=== PATIENT | male | born 2000 | race Caucasian/White ===

== ENCOUNTER → 2022-04-19 10:15 | Outpatient (CLI) | payer SELFPAY ==
[2022-04-19 19:44] LABS: Alanine Aminotransferase 31 U/L (12-78); Albumin Level 4.5 g/dl (3.5-5.0); Alkaline Phosphatase 176 U/L (38-126); Aspartate Amino Transferase 30 U/L (17-59); Bilirubin,Total 0.5 mg/dl (0.2-1.3); Blood Urea Nitrogen 11 mg/dl (9-20); Calcium 9.1 mg/dl (8.4-10.2); Carbon Dioxide 27 mmol/L (22.0-30.0); Chloride 86 mmol/L (98-107); Estimated Glomerular Filt Rate 168 ml/min (>60); GFR (African American) 204 ML/MIN (>60); Globulin 2.3 g/dL (1.3-3.2); Sodium 128 mmol/L (136-145); Total Protein,Serum 6.8 g/dl (6.3-8.2)
[2022-04-19 20:00] LABS: Free T4 (Free Thyroxine) 1.64 ng/dl (0.78-2.19); Glucose 817 mg/dl (74-100)
[2022-04-19 20:13] LABS: Thyroid Stimulating Hormone 1.01 uIU/mL (0.465-4.68)
[2022-04-19 21:04] LABS: Creatinine,Urine Random 11 mg/dL (Not Estab.); Microalbumin < 6.000 mg/L (0-16.7)
== END ==
PROVIDERS: PCP Family Medicine; Visit Provider Family Medicine
DX: E05.90 Thyrotoxicosis, unspecified without thyrotoxic crisis or storm (principal); E10.9 Type 1 diabetes mellitus without complications; Z79.4 Long term (current) use of insulin
CPT/HCPCS: 80053; 82043; 82570; 84439; 84443

== ENCOUNTER → 2022-05-03 10:58 | Outpatient (CLI) | payer SELFPAY ==
[2022-05-03 20:34] LABS: Anion Gap 16.2 mEq/L (5-15); Blood Urea Nitrogen 14 mg/dl (9-20); Calcium 9.1 mg/dl (8.4-10.2); Carbon Dioxide 30 mmol/L (22.0-30.0); Chloride 98 mmol/L (98-107); Chol/HDL Ratio 2.5 (1-3.5); Cholesterol 175 mg/dl (140-200); Estimated Glomerular Filt Rate 168 ml/min (>60); GFR (African American) 204 ML/MIN (>60); Glucose 160 mg/dl (74-100); HDL Cholesterol 70 mg/dl (40-60); Potassium 4.2 mmoL/L (3.5-5.1); Sodium 140 mmol/L (136-145); Triglycerides 234 mg/dl (30-150); VLDL Cholesterol 47 mg/dL (0-40)
[2022-05-03 20:44] LABS: Direct LDL Cholesterol 80.11 mg/dL (100-129)
[2022-05-03 20:52] LABS: Microalbumin/Creatinine Ratio 11.8
[2022-05-03 20:53] LABS: Creatinine,Urine Random 166 mg/dL (Not Estab.)
== END ==
LOC: LAB.DROPOF 05-04 06:42
PROVIDERS: PCP Family Medicine; Visit Provider Family Medicine
DX: E10.9 Type 1 diabetes mellitus without complications (principal); Z79.4 Long term (current) use of insulin
CPT/HCPCS: 80048; 80061; 82043; 82570

== ENCOUNTER → 2023-05-31 23:48 | Outpatient (CLI) | payer SELFPAY ==
[2023-05-31 20:08] LABS: Hemoglobin A1C 12.5 % (4.0-6.0)
== END ==
LOC: LAB.DROPOF 23:49
PROVIDERS: PCP Nurse Practitioner; Visit Provider Nurse Practitioner
DX: E05.90 Thyrotoxicosis, unspecified without thyrotoxic crisis or storm (principal); E10.9 Type 1 diabetes mellitus without complications; Z79.4 Long term (current) use of insulin
CPT/HCPCS: 83036

== ENCOUNTER 2023-06-21 16:51 | Emergency (ER) | payer SELFPAY ==
[2023-06-21 16:51] VITALS: BP 118/72; PULSE 60; RESP 18; TEMP 36.6; O2SAT 100; BMI 17.2
[2023-06-21 16:59] LABS: POC Glucose,Bedside 283 (70-110)
--- NOTE | 2023-06-21 17:12 | XR_ITS ---
PROCEDURE INFORMATION: Exam: XR Chest Exam date and time: 06/21/2023 5:13 PM Age: 22 years old Clinical indication: Other: Vomiting TECHNIQUE: Imaging protocol: Radiologic exam of the chest. Views: 1 view. COMPARISON: No relevant prior studies available. FINDINGS: Lungs: Unremarkable. No consolidation. Pleural spaces: Unremarkable. No pleural effusion. No pneumothorax. Heart/Mediastinum: Unremarkable. No cardiomegaly. Bones/joints: Unremarkable. IMPRESSION: No acute findings.
--- NOTE | 2023-06-21 17:19 | PC.NURSE ---
DR KIRKPATRICK AT BEDSIDE
[2023-06-21 17:20] LABS: Basophils % 0.2 % (0.1-2.0); Eosinophils % 0.1 % (0.1-12.0); Hematocrit 41.8 % (42.0-52.0); Hemoglobin 14.6 g/dL (14.1-18.0); Lymphocytes # 2.3 K/mm3 (0.7-4.5); Lymphocytes % 21.8 % (10-50); Mean Corpuscular HGB Conc 35.1 g/dL (31.8-35.4); Mean Corpuscular Hemoglobin 31.1 pg (27.0-31.2); Mean Corpuscular Volume 88.7 fl (80-94); Mean Platelet Volume 7.4 fl (7.4-10.4); Monocytes # 0.6 K/mm3 (0.1-1.0); Monocytes % 5.7 % (1.7-9.3); Neutrophils # 7.6 K/mm3 (1.8-7.8); Platelet Count 289 K/mm3 (142-424); Red Blood Count 4.71 M/mm3 (4.60-6.20); Red Cell Distribution Width 12.9 % (11.5-17.5); White Blood Count 10.5 K/mm3 (4.8-10.8)
[2023-06-21 17:21] LABS: VBG Base Excess 1.7 mmol/L (-2.4-2.3); VBG HCO3 25.9 mmol/L (23-30); VBG Oxygen Saturation 69.9 % (50-70); VBG PCO2 39.9 mmol/L (35-51); VBG PH 7.43 mmol/L (7.31-7.41); VBG PO2 33.9 mmol/L (28-40); VBG Total CO2 27.2 mmol/L (23-27)
[2023-06-21 17:23] LABS: Chloride 98 mmol/L (98-107); Potassium 3.3 mmoL/L (3.5-5.1); Sodium 136 mmol/L (136-145)
--- NOTE | 2023-06-21 17:24 | HMH.EDGENADL ---
Discharge Plan Disposition Patient Disposition: Home, Self-Care Prescriptions Prescriptions: New metoclopramide HCl [Reglan] 10 mg tablet 10 mg PO Q6H PRN (Reason: nausea and vomiting) 7 Days Qty: 30 0RF No Action omeprazole 40 mg capsule,delayed release(DR/EC) 40 mg PO DAILY Qty: 30 2RF Toujeo Max U-300 SoloStar 300 unit/mL (3 mL) insulin pen 30 unit SQ DAILY Qty: 3 5RF (DME) pen needle, diabetic [BD Ultra-Fine Micro Pen Needle] 32 gauge x 1/4 needle See Rx Instructions .Route Qty: 100 3RF Rx Instructions: As directed Humalog KwikPen Insulin 200 unit/mL (3 mL) insulin pen 20 unit SQ TID Qty: 12 3RF Referrals Follow up/Referrals: Gretchen Angelo APRN [Primary Care Provider] - See instructions Activity Restrictions/Add. Instructions Additional Instructions/Restrictions: Per our discussion there are 2 conditions that I am primarily worried about the first being diabetic gastroparesis. I recommend that you follow-up with a GI doctor as well as establish care with an edge stainer at [facility] and I would recommend that you get a gastric emptying study. Secondarily I am concerned that you may have cannabinoid hyperemesis from your chronic marijuana smoking. Please stop smoking marijuana as an elimination challenge to see if this improves your symptoms. Return to an emergency department with intractable symptoms or other concerns. The medicine Reglan has been prescribed to you to take which may help improve your gastric emptying but is not a medication is discussed that I would want you to take long-term due to significant side effects with long-term use. Clinical Impressions Clinical Impression: Diabetes mellitus type 1, Cyclical vomiting Instructions Patient Instructions: DI for Diarrhea and Traveler's Diarrhea -- Adult, DI for Diarrhea and Traveler's Diarrhea -- Child, DI for Nausea -- Adult, DI for Nausea -- Child Discharge ED Provider: Jaxson Reynaga General Adult HPI General Chief complaint: Nausea/Vomiting/Diarrhea Stated complaint: chest pressure, vomiting, SOA Time Seen by Provider: 06/21/23 17:18 Mode of Arrival: Wheelchair Source of Information: Patient Limitations: No Limitations Description of Symptoms (Recalled from ER Triage Doc. by RN): PT TYPE 1 DIABETIC, BLOOD GLUCOSE UP AND DOWN. REPORTS FREQUENT N/V. REPORTS STOMACH AND ESOPHAGUS BURNING, REPORTS ABDOMINAL PAIN. HAS BEEN EVALUATED AT OTHER HOSPITALS LATELY, STATES THEY DON'T KNOW WHATS WRONG WITH ME. History of Present Illness HPI narrative: Patient is a 22-year-old male history of type 1 diabetes most recent A1c was between 11 and 12 presents today with frequent recurrent nausea and vomiting. States this has been ongoing for several days at this point. Denies any fevers or chills or any other respiratory or viral symptoms. Went to [facility] in [place] yesterday evening had a CT scan of his abdomen which did not show any abnormalities and was told that he was not in DKA. Additionally patient states that he smokes marijuana daily for an extended period of time is never been diagnosed with cannabinol hyperemesis and has not tried a hot shower to relieve his symptoms. No diarrhea. Is passing gas. Related Data Previous Rx's Medication Instructions Recorded insulin glargine U-300 conc 300 30 unit (0.1 mL) SQ DAILY #3 mL 05/31/23 unit/mL (3 mL) subcutaneous pen (Toujeo Max U-300 SoloStar) omeprazole 40 mg capsule,delayed 40 mg PO DAILY #30 caps 05/31/23 release pen needle, diabetic 32 gauge x #100 ea 05/31/2307/19 (BD Ultra-Fine Micro Pen Needle) insulin lispro 200 unit/mL (3 mL) 20 unit (0.1 mL) SQ TID #12 mL 06/13/23 subcutaneous pen (Humalog KwikPen U-200 Insulin) metoclopramide HCl 10 mg tablet 10 mg PO Q6H PRN nausea and 06/21/23 (Reglan) vomiting 7 days #30 tabs Allergies Allergy/AdvReac Type Severity Reaction Status Date / Time No Known Allergies Allergy Verified 06/13
[2023-06-21 17:25] LABS: Blood Urea Nitrogen 19 mg/dl (9-20)
[2023-06-21 17:26] LABS: Alanine Aminotransferase 35 U/L (12-78); Albumin Level 4.6 g/dl (3.5-5.0); Albumin/Globulin Ratio 1.8 (1.1-1.8); Alkaline Phosphatase 77 U/L (38-126); Anion Gap 11.3 mEq/L (5-15); Aspartate Amino Transferase 43 U/L (17-59); Bilirubin,Total 0.7 mg/dl (0.2-1.3); Calcium 9.1 mg/dl (8.4-10.2); Carbon Dioxide 30 mmol/L (22.0-30.0); Creatinine Clearance Estimated 116 mL/min (50-200); Estimated Glomerular Filt Rate 140 ml/min (>60); GFR (African American) 169 ML/MIN (>60); Globulin 2.5 g/dL (1.3-3.2); Glucose 292 mg/dl (74-100); Total Protein,Serum 7.1 g/dl (6.3-8.2)
[2023-06-21 17:38] LABS: Lipase 41 U/L (23-300)
[2023-06-21 17:46] LABS: Acetone, Serum (Rapid) None Detected (None Detect)
--- NOTE | 2023-06-21 17:56 | PC.NURSE ---
ROUNDED ON PT, URINAL AND PILLOW PROVIDED. CALL LIGHT WITHIN REACH. FEELING BETTER AT THIS TIME. FAMILY AT BEDSIDE
--- NOTE | 2023-06-21 18:12 | PC.NURSE ---
DR KIRKPATRICK AT BEDSIDE TO UPDATE PT AND FAMILY
[2023-06-21 18:18] VITALS: BP 148/70; PULSE 80; RESP 18; TEMP 36.7; O2SAT 97
--- NOTE | 2023-06-21 18:25 | PC.NURSE ---
pt has been d/c, however pt & his mother are at waiting for pt's grandmother to collect them.
== END 2023-06-21 18:34 | disposition home or self-care (01) ==
PROVIDERS: Emergency Provider Student in an Organized Health Care Education/Training Program; PCP Nurse Practitioner
DX: R11.2 Nausea with vomiting, unspecified (principal); E10.9 Type 1 diabetes mellitus without complications; E05.90 Thyrotoxicosis, unspecified without thyrotoxic crisis or storm; F17.200 Nicotine dependence, unspecified, uncomplicated; F12.90 Cannabis use, unspecified, uncomplicated
CPT/HCPCS: 71045; 80053; 82009; 82803; 82962; 83690; 85025; 96361; 96374; 96375; 99285; J2405

== ENCOUNTER 2023-12-30 19:05 | Observation (INO) | payer SELFPAY ==
[2023-12-30] VITALS (11 sets, daily range): BP systolic 97–129; BP diastolic 59–89; PULSE 41–80; RESP 14–22; TEMP 36.7–36.8; O2SAT 94–99; BMI 18.0; BMI 17.5
--- NOTE | 2023-12-30 19:18 | HMH.EDGENADL ---
Discharge Plan Disposition Patient Disposition: Admitted Prescriptions Prescriptions: No Action omeprazole 40 mg capsule,delayed release(DR/EC) 40 mg PO DAILY Qty: 30 2RF Toujeo Max U-300 SoloStar 300 unit/mL (3 mL) insulin pen 30 unit SQ DAILY Qty: 3 5RF Humalog KwikPen Insulin 200 unit/mL (3 mL) insulin pen 20 unit SQ TID Qty: 12 3RF (DME) pen needle, diabetic [BD Ultra-Fine Micro Pen Needle] 32 gauge x 1/4 needle See Rx Instructions .Route Qty: 100 3RF Rx Instructions: As directed metoclopramide HCl [Reglan] 10 mg tablet 10 mg PO Q6H PRN (Reason: nausea and vomiting) 7 Days Qty: 30 0RF Referrals Follow up/Referrals: Gretchen Angelo APRN [Primary Care Provider] - See instructions Clinical Impressions Clinical Impression: Diabetic gastroparesis, Abdominal pain, Intractable nausea and vomiting, Dehydration, moderate, Colitis Instructions Patient Instructions: DI for Gastrointestinal Bleeding Discharge ED Provider: Jaxson Reynaga General Adult HPI General Chief complaint: GI Bleed Stated complaint: blood sugar over 400 Time Seen by Provider: 12/30/23 19:13 Mode of Arrival: Ambulatory Source of Information: Patient Limitations: No Limitations Description of Symptoms (Recalled from ER Triage Doc. by RN): Patient is a type 1 diabetic that presents with intense vomiting and stomach pain that started a couple of hours ago. Vomiting is coffee ground in nature. History of Present Illness HPI narrative: Patient is a 23-year-old male known insulin-dependent diabetic presents today with nausea and vomiting abdominal discomfort very similar to DKA episode he had in the past. Denies any melena or hematochezia but has had some dark emesis. States his blood sugar on his continuous monitor has been reading higher lately. Last A1c was greater than 10 he states. Has not had any fevers or chills or any other preceding symptoms other than this. Related Data Previous Rx's Medication Instructions Recorded insulin glargine U-300 conc 300 30 unit (0.1 mL) SQ DAILY #3 mL 05/31/23 unit/mL (3 mL) subcutaneous pen (Toujeo Max U-300 SoloStar) omeprazole 40 mg capsule,delayed 40 mg PO DAILY #30 caps 05/31/23 release insulin lispro 200 unit/mL (3 mL) 20 unit (0.1 mL) SQ TID #12 mL 06/13/23 subcutaneous pen (Humalog KwikPen U-200 Insulin) metoclopramide HCl 10 mg tablet 10 mg PO Q6H PRN nausea and 06/21/23 (Reglan) vomiting 7 days #30 tabs pen needle, diabetic 32 gauge x #100 ea 09/18/2307/19 (BD Ultra-Fine Micro Pen Needle) Allergies Allergy/AdvReac Type Severity Reaction Status Date / Time No Known Allergies Allergy Verified 06/13/23 08:09 [facility] Disclaimer: The information contained in this section may have been updated after the patient was seen, as this information can be updated by other users. Medical History Diabetes mellitus type 1 Hyperthyroidism Family History Other Cancer Diabetes Hypertension Social History Smoking Status: Current every day smoker alcohol intake: current current occupational status: unemployed Travel in the last 8 weeks: None ROS Obtained: Yes All systems reviewed & no additional complaints except as documented Physical Exam General General appearance: in distress and cachectic Respiratory Respiratory exam: Present normal lung sounds bilaterally Cardiovascular Cardiovascular exam: Present tachycardia Abdominal Exam Abdominal exam: Present soft and tenderness Neurological Exam Neurological exam: Present alert and oriented X3 Medical Decision Making Lui Inquiry Pt receiving controlled substance: No Vital Signs: 12/30/23 19:06 12/30/23 19:12 12/30/23 20:00 Pulse Rate 80 60 Pulse Rate [Radial] 59 L Respiratory Rate 22 20 18 Blood Pressure 129/89 Blood Pressure [Right Arm] 129/89 Blood Pressure Mean [Right Arm] 102 Blood Pressure Source [Right Arm] Automatic Cuff Blood Pressure Position [Right Arm] Sitting 02 Sat by Pulse Oximetry 99 99 98 Oxygen Delivery Method Room Air Room Air Room Air 12/30/23 20:30 12/30/23 21:00 12/30/23 21:30 Pulse Rate 58 L 43 L 43 L Pulse Rate [Radial] Respiratory Rate 20 16 14 Blood Pressure 103/67 L 97/59 L Blood Pressure [Right Arm] Blood Pressure Mean [Right Arm] Blood Pressure Source [Right Arm] Blood Pressure Position [Right Arm] 02 Sat by Pulse Oximetry 96 97 95 Oxygen Delivery Method Room Air Room Air Room Air Lab Data Lab results reviewed: Yes I reviewed the patient's lab results. Lab Results 12/30/23 19:14: WBC 15.3 H, RBC 5.59, Hgb 16.8, Hct 49.7, MCV 88.9, MCH 30.0, MCHC 33.7, RDW 13.3, Plt Count 355, MPV 7.2 L, Neut % (Auto) 79.3, Lymph % (Auto) 14.9, [place] % (Auto) 4.8, Eos % (Auto) 0.3, Baso % (Auto) 0.6, Neut # (Auto) 12.2 H, Lymph # (Auto) 2.3, [place] # (Auto) 0.7, Eos # (Auto) 0.1, Baso # (Auto) 0.1, Total Counted 100, Neutrophils % (Manual) 73, Band Neutrophils % 1.0, Lymphocytes % (Manual) 19, Atypical Lymphs % 2.0, Monocytes % (Manual) 4, Eosinophils % (Manual) 1, Platelet Estimate Normal, RBC Morphology Normal, Sodium 143, Potassium 3.7, Chloride 103, Carbon Dioxide 21 L, Anion Gap 22.7 H, BUN 18, Creatinine 0.90, Estimated Creat Clear 93, Estimated GFR 104, Est GFR ( Amer) 125, Glucose 382 H, Calcium 10.8 H, Phosphorus 3.2, Magnesium 1.7, Total Bilirubin 0.8, AST 51, ALT 39, Alkaline Phosphatase 90, Troponin I < 0.01, Total Protein 8.9 H D, Albumin 5.6 H, Globulin 3.3 H, Albumin/Globulin Ratio 1.7, Lipase 29, Salicylates < 1.0 L, Acetaminophen < 10 L, Plasma/Serum Alcohol < 10 12/30/23 19:17: VBG pH 7.49 H, VBG pCO2 23.7 L, VBG pO2 122.0 H, VBG HCO3 17.6 L, VBG Total CO2 18.3 L, VBG O2 Saturation 99.0 H, VBG Base Excess -5.8 L, VBG Lactic Acid 5.2 H 12/30/23 21:50: Urine Color Yellow, Urine Appearance Clear, Urine pH 8.5, Ur Specific [place] 1.010, Urine Protein Negative, Urine Glucose (UA) 2+, Urine Ketones 1+, Urine Blood Negative, Urine Nitrate Negative, Urine Bilirubin Negative, Urine Urobilinogen 1.0, Ur Leukocyte Esterase Negative, Urine RBC None, Urine WBC Occasional, Ur Squamous Epith Cells Occasional, Urine Bacteria None, Urine Opiates Screen Negative, Urine Methadone Screen Negative, Ur Barbituates Screen Negative, Ur Phencyclidine Scrn Negative, Ur Amphetamines Screen Negative, U Benzodiazepines Scrn Negative, Urine Cocaine Screen Negative, U Marijuana (THC) Screen Positive H 12/30/23 19:14 12/30/23 19:14 Orders (Tests/Meds): ED MEDICATIONS Generic Name Dose Route Start Last Admin Trade Name Freq PRN Reason Stop Dose Admin Sodium Chloride 10 ml 12/30/23 20:04 12/30/23 20:05 Sodium Chloride 0.9% 10ml Syr (Rad Only) IV 01/29/24 20:03 10 ml NEEDED PRN Administration Maintain IV Site Discontinued Medications Generic Name Dose Route Start Last Admin Trade Name Freq PRN Reason Stop Dose Admin Lactated Ringer's 1,000 mls @ 999 mls/hr 12/30/23 19:30 12/30/23 19:32 Lactated Ringer's 1000 Ml Bag IV 12/30/23 21:30 999 mls/hr .Q1H1M MARCELO Administration Iopamidol 75 ml 12/30/23 20:04 12/30/23 20:05 Iopamidol-370 (76%);100ml Bottle IV 12/30/23 20:05 75 ml ONCE ONE Administration Metoclopramide HCl 10 mg 12/30/23 19:46 12/30/23 19:49 Metoclopramide Hcl 10mg/2ml Vial IVP 12/30/23 19:47 10 mg ONCE ONE Administration Morphine Sulfate 4 mg 12/30/23 19:42 12/30/23 20:51 Morphine 4mg/Ml Syringe IV 12/30/23 19:43 Not Given ONCE ONE Ondansetron HCl 4 mg 12/30/23 19:16 12/30/23 19:33 Ondansetron 4mg/2ml Vial IV 12/30/23 19:17 4 mg ONCE ONE Administration ORDERS Category Date Time Status CT abdomen pelvis w con Stat Cat Scan 06/16/24 19:42 Completed Acetaminophen Stat Lab 12/30/23 19:14 Completed CBC w/Auto Diff [Complete Blood Count Auto Diff] Stat Lab 12/30/23 19:14 Completed CMP [Comprehensive Metabolic Panel] Stat Lab 12/30/23 19:14 Completed Diarrhea 23 Panel, PCR Stat Lab 12/30/23 22:30 Ordered Ethanol [Ethyl Alcohol] Stat Lab 12/30/23 19:14 Completed Lipase Stat Lab 12/30/23 19:14 Completed Magnesium Stat Lab 12/30/23 19:14 Completed Phosphorous Stat Lab 12/30/23 19:14 Completed Salicylate Stat Lab 12/30/23 19:14 Completed Trop I [Troponin I] Stat Lab 12/30/23 19:14 Completed Troponin I Q3H Lab 12/30/23 22:30 Ordered Troponin I Q3H Lab 12/31/23 01:30 Ordered UA [Urinalysis and Microscopic] Stat Lab 12/30/23 21:50 Completed UDS [Drug Screen,Urine] Stat Lab 12/30/23 21:50 Completed Venous Blood Gas Stat RT 12/30/23 19:17 Completed Medical Decision Narrative: Ill-appearing clinically dehydrated 23-year-old male presenting today with nausea and vomiting abdominal discomfort with blood sugar still reading high on his monitor at home consistent with DKA. 2 L of LR have been hung initially will get blood work back prior to initiating insulin or electrolyte replacement. Abdominal discomfort likely secondary to acidosis do not suspect surgical pathology at this time. No other preceding signs or symptoms of infection. Reassessment venous blood gas shows a pH of 7.48 with pCO2 of 24 and a bicarb of 18. This is not consistent with DKA make me reassess initial evaluation. Given the fact that he is having severe abdominal pain we will get a CT scan of his abdomen pelvis at this point and expand workup. He has lactic acid of 5.17. Additionally his mom just showed up and said that he was diagnosed with gastroparesis. And has not been taking his medications. Therefore I will give him Reglan this is certainly on the differential. Reassessment CT scan performed which shows colitis. GI PCR diarrhea panel has been ordered but no results are back yet holding off on empiric antibiotics until that is back. No evidence of sepsis right now. Vital signs improved he has been comfortable for a few hours but upon waking him he is still throwing up and retching. Will admit him for intractable nausea vomiting dehydration colitis likely is a manifestation of his known gastroparesis and medication noncompliance. No evidence of DKA. Critical Care Critical Care Time Critical Care Time: Yes Attestation: On 12/30/23, the high probability of a clinically significant, sudden or life threatening deterioration of the following system(s) required my full and direct attention, intervention and personal management. The time I documented below is in addition to time spent performing reported procedures but includes the following listed in this critical care notation. Total Time Total Critical Care Time: 65
[2023-12-30 19:27] LABS: Basophils # 0.1 K/mm3 (0-0.2); Basophils % 0.6 % (0.1-2.0); Eosinophils # 0.1 K/mm3 (0.0-0.4); Eosinophils % 0.3 % (0.1-12.0); Hematocrit 49.7 % (42.0-52.0); Hemoglobin 16.8 g/dL (14.1-18.0); Lymphocytes # 2.3 K/mm3 (0.7-4.5); Lymphocytes % 14.9 % (10-50); Mean Corpuscular HGB Conc 33.7 g/dL (31.8-35.4); Mean Corpuscular Volume 88.9 fl (80-94); Mean Platelet Volume 7.2 fl (7.4-10.4); Monocytes # 0.7 K/mm3 (0.1-1.0); Monocytes % 4.8 % (1.7-9.3); Neutrophils # 12.2 K/mm3 (1.8-7.8); Neutrophils % 79.3 % (37.0-80.0); Platelet Count 355 K/mm3 (142-424); Red Blood Count 5.59 M/mm3 (4.60-6.20); Red Cell Distribution Width 13.3 % (11.5-17.5); White Blood Count 15.3 K/mm3 (4.8-10.8)
[2023-12-30] MEDS: LACTATED RINGERS 1000ML 1,000 ML 999 ML IV ×2 (19:32)
[2023-12-30] MEDS: ONDANSETRON 4MG/2ML VIAL 4 MG IV ×2 (19:33→23:54)
[2023-12-30 19:35] LABS: MANUAL DIFFERENTIAL MANUAL DIFFERENTIAL (MANUAL DIFF)
[2023-12-30 19:37] LABS: VBG Base Excess -5.8 mmol/L (-2.4-2.3); VBG HCO3 17.6 mmol/L (23-30); VBG PH 7.49 mmol/L (7.31-7.41); VBG Total CO2 18.3 mmol/L (23-27)
[2023-12-30 19:38] LABS: Lactate Venous 5.2 mmol/L (0.4-2.0); VBG PCO2 23.7 mmol/L (35-51)
--- NOTE | 2023-12-30 19:42 | CT_ITS ---
PROCEDURE INFORMATION: Exam: CT Abdomen And Pelvis With Contrast Exam date and time: 12/30/2023 8:05 PM Age: 23 years old Clinical indication: Vomiting; Abdominal pain; Additional info: Diffuse abd pain TECHNIQUE: Imaging protocol: Computed tomography of the abdomen and pelvis with contrast. Radiation optimization: All CT scans at this facility use at least one of these dose optimization techniques: automated exposure control; mA and/or kV adjustment per patient size (includes targeted exams where dose is matched to clinical indication); or iterative reconstruction. Contrast material: ISOVUE; Contrast volume: 75 ml; Contrast route: IV; COMPARISON: CR XR CHEST PORTABLE 01/24/2023 17:13 FINDINGS: Liver: Normal. No mass. Gallbladder and bile ducts: Normal. No calcified stones. No ductal dilation. Pancreas: Normal. No ductal dilation. Spleen: Normal. No splenomegaly. Adrenal glands: Normal. No mass. Kidneys and ureters: Low attenuation renal lesions measuring up to 3 mm in diameter are incompletely characterized, but are likely cysts. No followup imaging is warranted. Stomach and bowel: Bowel wall thickening of the colon.The majority of the colon is collapsed, which is a nonspecific appearance that can correlate with colitis in the appropriate clinical setting. Appendix: The appendix is not clearly identified due to lack of fat planes around the base of the cecum. There are no secondary findings of acute appendicitis. Intraperitoneal space: Unremarkable. No free air. No significant fluid collection. Vasculature: Unremarkable. No abdominal aortic aneurysm. Lymph nodes: Unremarkable. No enlarged lymph nodes. Urinary bladder: Unremarkable as visualized. Reproductive: Unremarkable as visualized. Bones/joints: Unremarkable. No acute fracture. Soft tissues: Unremarkable. IMPRESSION: Nonspecific findings that suggest colitis. COMMENTS: Consistent with the [employer]'s Incidental Findings Committee white paper (J Am Wes Radiol 2018): Any incidental renal lesion less than 1 cm or classified as too small to characterize, or any incidental cystic renal lesion characterized as simple-appearing, is likely benign. No follow-up imaging is recommended for these lesions per consensus recommendations based on imaging criteria.
[2023-12-30 19:44] LABS: Chloride 103 mmol/L (98-107); Sodium 143 mmol/L (136-145)
[2023-12-30 19:45] LABS: Potassium 3.7 mmoL/L (3.5-5.1)
[2023-12-30 19:47] LABS: Alanine Aminotransferase 39 U/L (12-78); Albumin Level 5.6 g/dl (3.5-5.0); Albumin/Globulin Ratio 1.7 (1.1-1.8); Alkaline Phosphatase 90 U/L (38-126); Anion Gap 22.7 mEq/L (5-15); Aspartate Amino Transferase 51 U/L (17-59); Bilirubin,Total 0.8 mg/dl (0.2-1.3); Blood Urea Nitrogen 18 mg/dl (9-20); Calcium 10.8 mg/dl (8.4-10.2); Carbon Dioxide 21 mmol/L (22.0-30.0); Creatinine Clearance Estimated 93 mL/min (50-200); Estimated Glomerular Filt Rate 104 ml/min (>60); GFR (African American) 125 ML/MIN (>60); Globulin 3.3 g/dL (1.3-3.2); Glucose 382 mg/dl (74-100); Lipase 29 U/L (23-300); Phosphorous 3.2 mg/dl (2.5-4.5); Total Protein,Serum 8.9 g/dl (6.3-8.2)
[2023-12-30 19:48] LABS: Magnesium 1.7 mg/dl (1.6-2.3)
[2023-12-30] MEDS: METOCLOPRAMIDE HCL 10MG/2ML VIAL 10 MG IVP ×2 (19:49→23:54)
[2023-12-30 19:55] LABS: Ethyl Alcohol < 10 mg/dl (0-10)
[2023-12-30 19:56] LABS: Acetaminophen < 10 ug/ml (10-30); Salicylate < 1.0 mg/dL (2.0-20.0)
[2023-12-30 20:00] LABS: Troponin I < 0.01 ng/ml (0.00-0.034)
[2023-12-30] MEDS: IOPAMIDOL-370 (76%);100ML BOTTLE 75 ML IV (20:05)
[2023-12-30] MEDS: SODIUM CHLORIDE 0.9% 10ML SYR (RAD ONLY) 10 ML IV (20:05)
[2023-12-30 21:07] LABS: Eosinophils % 1 % (0-3); Lymphocytes % 19 % (10-50); Monocytes % 4 % (2-9); Neutrophils % 73 % (42-76); Total Cells Counted 100
[2023-12-30 21:13] LABS: Platelet Estimate Normal; RBC Morphology Normal
[2023-12-30 21:57] LABS: Microscopic, Urine URINE MICROSCOPIC (MICROSCOPIC)
[2023-12-30 21:59] LABS: Appearance,Urine CLEAR (Clear); Bilirubin,Urine Negative (Negative); Blood, Urine Negative (Negative); Color,Urine YELLOW (Yellow); Glucose,Urine (UA) 2+ (Negative); Ketones,Urine 1+ (Negative); Leukocyte Esterase,Urine Negative (Negative); Nitrate,Urine Negative (Negative); PH,Urine 8.5 (5.0-8.5); Protein,Urine Negative (Negative)
[2023-12-30 22:10] LABS: Benzodiazepines Screen,Urine Negative ng/ml (<200)
[2023-12-30 22:11] LABS: Amphetamine/Metha Screen,Urine Negative ng/ml (<1000); Barbiturates Screen,Urine Negative ng/ml (<200)
[2023-12-30 22:12] LABS: Cannabinoid Screen,Urine Positive ng/ml (<50); Cocaine Screen,Urine Negative ng/ml (<300)
[2023-12-30 22:13] LABS: Methadone Screen,Urine Negative ng/ml (<300)
[2023-12-30 22:14] LABS: Opiate Screen,Urine Negative ng/ml (<300); Phencyclidine Screen,Urine Negative ng/ml (<25)
[2023-12-30 22:32] LABS: Squamous Epithelial Cell,Urine Occasional #/hpf (0-5); WBC,Urine Occasional #/hpf (0-3)
--- NOTE | 2023-12-30 22:49 | PC.NURSE ---
RM 212
--- NOTE | 2023-12-30 22:58 | PC.NURSE ---
called report to suresh on 2nd floor and answered all questions
--- NOTE | 2023-12-30 23:28 | P.HP_ITS ---
History of Present Illness *Admission Date: 12/30/23 *Reason for visit:: N/V/Abdominal pain *History of present illness: This is a 23-year-old male with PMHX insulin-dependent diabetic, medically non compliant, hyperthyroidism presented today with nausea, vomiting and abdominal discomfort. Denies any melena or hematochezia but has had some dark emesis. States his blood sugar on his continuous monitor has been reading higher lately. Last A1c was greater than 10 he states. Has not had any fevers or chills or any other preceding symptoms other than this. on my assessment, GI PCR diarrhea panel still pending. No evidence of sepsis right now. Vital signs improved he has been comfortable for a few hours but upon waking him he is still throwing up and retching. Admitted for inpatient management [facility] Disclaimer: The information contained in this section may have been updated after the patient was seen, as this information can be updated by other users. Medical History Diabetes mellitus type 1 Hyperthyroidism Family History Other Cancer Diabetes Hypertension Social History (Updated 12/30/23 @ 23:52 by Qiana Casillas RN) Smoking Status: Current every day smoker alcohol intake: never current occupational status: unemployed Travel in the last 8 weeks: None Review of Systems Review of Systems Review of systems:: pertinent systems reviewed and negative unless documented below Meds Home Medications and Allergies Home Medications Medication Instructions Recorded Confirmed Type insulin glargine U-300 conc 300 30 unit (0.1 mL) SQ DAILY #3 mL 05/31/23 12/30/23 Rx unit/mL (3 mL) subcutaneous pen (Toujeo Max U-300 SoloStar) omeprazole 40 mg capsule,delayed 40 mg PO DAILY #30 caps 05/31/23 12/30/23 Rx release insulin lispro 200 unit/mL (3 mL) 20 unit (0.1 mL) SQ TID #12 mL 06/13/23 12/30/23 Rx subcutaneous pen (Humalog KwikPen U-200 Insulin) metoclopramide HCl 10 mg tablet 10 mg PO Q6H PRN nausea and 06/21/23 12/30/23 Rx (Reglan) vomiting 7 days #30 tabs pen needle, diabetic 32 gauge x #100 ea 09/18/23 Rx 07/19 (BD Ultra-Fine Micro Pen Needle) New Prescriptions to Start Prescriptions: Allergies Allergy/AdvReac Type Severity Reaction Status Date / Time No Known Allergies Allergy Verified 06/13/23 08:09 Exam Data for Last 24 hours Vital signs and Labs for Last 24 Hours: Temp Pulse Resp BP Pulse Ox O2 Del Method 98.0 F 44 L 20 107/84 L 97 Room Air 12/30/23 23:01 12/30/23 23:01 12/30/23 23:01 12/30/23 23:01 12/30/23 22:30 12/30/23 23:01 Laboratory Results - last 24 hr 12/30/23 19:14: WBC 15.3 H, RBC 5.59, Hgb 16.8, Hct 49.7, MCV 88.9, MCH 30.0, MCHC 33.7, RDW 13.3, Plt Count 355, MPV 7.2 L, Neut % (Auto) 79.3, Lymph % (Auto) 14.9, [place] % (Auto) 4.8, Eos % (Auto) 0.3, Baso % (Auto) 0.6, Neut # (Auto) 12.2 H, Lymph # (Auto) 2.3, [place] # (Auto) 0.7, Eos # (Auto) 0.1, Baso # (Auto) 0.1, Total Counted 100, Neutrophils % (Manual) 73, Band Neutrophils % 1.0, Lymphocytes % (Manual) 19, Atypical Lymphs % 2.0, Monocytes % (Manual) 4, Eosinophils % (Manual) 1, Platelet Estimate Normal, RBC Morphology Normal, Sodium 143, Potassium 3.7, Chloride 103, Carbon Dioxide 21 L, Anion Gap 22.7 H, BUN 18, Creatinine 0.90, Estimated Creat Clear 93, Estimated GFR 104, Est GFR ( Amer) 125, Glucose 382 H, Calcium 10.8 H, Phosphorus 3.2, Magnesium 1.7, Total Bilirubin 0.8, AST 51, ALT 39, Alkaline Phosphatase 90, Troponin I < 0.01, Total Protein 8.9 H D, Albumin 5.6 H, Globulin 3.3 H, Albumin/Globulin Ratio 1.7, Lipase 29, Salicylates < 1.0 L, Acetaminophen < 10 L, Plasma/Serum Alcohol < 10 12/30/23 19:17: VBG pH 7.49 H, VBG pCO2 23.7 L, VBG pO2 122.0 H, VBG HCO3 17.6 L , VBG Total CO2 18.3 L, VBG O2 Saturation 99.0 H, VBG Base Excess -5.8 L, VBG Lactic Acid 5.2 H 12/30/23 21:50: Urine Color Yellow, Urine Appearance Clear, Urine pH 8.5, Ur Specific [place] 1.010, Urine Protein Negative, Urine Glucose (UA) 2+, Urine Ketones 1+, Urine Blood Negative, Urine Nitrate Negative, Urine Bilirubin Negative, Urine Urobilinogen 1.0, Ur Leukocyte Esterase Negative, Urine RBC None, Urine WBC Occasional, Ur Squamous Epith Cells Occasional, Urine Bacteria None, Urine Opiates Screen Negative, Urine Methadone Screen Negative, Ur Barbituates Screen Negative, Ur Phencyclidine Scrn Negative, Ur Amphetamines Screen Negative, U Benzodiazepines Scrn Negative, Urine Cocaine Screen Negative, U Marijuana (THC) Screen Positive H I & O for Last 24 hours: Intake & Output 12/27/23 12/28/23 12/29/23 12/30/23 23:59 23:59 23:59 23:59 Weight 52.163 kg Constitutional Constitutional: moderate distress, cachectic and chronically ill appearing *Routine HEENT Exam Head: Present normocephalic Eye: Present EOMI and PERRL ENT: Present mucous membranes moist *Routine Neck Exam Neck: Present supple; Absent lymphadenopathy *Routine Respiratory Exam Respiratory: Present CTA bilaterally *Routine Cardiovascular Exam Cardiovascular: Present RRR *Routine Abdominal Exam Abdominal: Present soft, normoactive bowel sounds, tenderness and guarding *Routine Rectal Exam Rectal:: deferred *Routine Genitalia Exam Genitalia:: deferred *Routine Extremities Exam Extremities: Absent cyanosis, clubbing or edema *Routine Skin Exam Skin: Present warm; Absent rash *Routine Neurological Exam Neurological: Present alert and oriented X3 H&P: Result Imaging and Cardiology EKG: Status: image reviewed by me, Preliminary report and final report CT scan - abdomen: Status: image reviewed by me, Preliminary report and final report Assessment and Plan *Assessment and plan (1) Colitis: Status: Acute Category: Medical Code(s): K52.9 - Noninfective gastroenteritis and colitis, unspecified (2) Dehydration, moderate: Status: Acute Category: Medical Code(s): E86.0 - Dehydration (3) Intractable nausea and vomiting: Status: Acute Category: Medical Code(s): R11.2 - Nausea with vomiting, unspecified (4) Abdominal pain: Status: Acute Qualifiers: Abdominal location: unspecified location Qualified Code(s): R10.9 - Unspecified abdominal pain Category: Medical Code(s): R10.9 - Unspecified abdominal pain (5) Diabetic gastroparesis: Status: Acute Category: Medical Code(s): E11.43 - Type 2 diabetes mellitus with diabetic autonomic (poly)neuropathy; K31.84 - Gastroparesis (6) Diabetes mellitus type 1: Status: Acute Qualifiers: Diabetes mellitus complication status: with other specified complication Qualified Code(s): E10.69 - Type 1 diabetes mellitus with other specified complication Category: Medical Code(s): E10.9 - Type 1 diabetes mellitus without complications Plan 23-year-old male with PMHX insulin-dependent diabetic, medically non compliant, hyperthyroidism presented today with nausea, vomiting and abdominal discomfort. Denies any melena or hematochezia but has had some dark emesis. On arrival patient hemodynamically stable. Initial workup grossly negative except for hyperglycemia, there is no signs of acidosis or DKA. CT of the abdomen showed colitis diarrhea panel pending. will hold empiric antibiotic.UA positive for marijuana. findings discussed with ED. patient continues to have nausea and vomiting. Agree for admission and inpatient management. Plan as follow: -Intractable abdominal pain likely secondary to colitis Nausea and vomiting, conditions please rule out diabetic gastroparesis versus cannabinoid hyperemesis Dehydration moderate: Admit patient for inpatient management. Dispo MedSurg Continues IV hydration Diarrhea panel pending. Will hold empiric antibiotics as no signs of infection CT of the abdomen shows colitis. No signs of perforation UA showed positive for cannabis Continue monitoring for vital signs. Repeat labs in the morning. Watch for electrolyte imbalance. Replace per protocol Nausea and vomiting management. Zofran Phenergan Reglan 10 mg 3 times daily Protonix IV Repeat labs in the morning -Type 1 diabetes: Noncompliant On sliding scale Accu-Chek Monitor for hypoglycemia Resume home insulin regimen Lovenox for DVT prophylaxis Full code
[2023-12-30 23:38] LABS: Reflex Lactic Add Lactic Reflex
[2023-12-30 23:47] LABS: Troponin I < 0.01 ng/ml (0.00-0.034)
[2023-12-30] MEDS: PANTOPRAZOLE 40MG VIAL 40 MG IV (23:54)
[2023-12-30] MEDS: SODIUM CHLORIDE 0.9% 10ML VIAL 10 ML IV (23:54)
[2023-12-30] MEDS: 0.9 % SODIUM CHLORIDE 1000ML 1,000 ML 100 ML IV (23:54)
[2023-12-30] MEDS: humaLOG 100 UNITS/ML 10ML VIAL (SSI) SQ (23:54)
[2023-12-31] VITALS: BP 111/68; PULSE 58; RESP 16; TEMP 36.9; O2SAT 94
[2023-12-31] LABS: Lactic Acid Follow Up (RFLX 1) 2.7 mmol/L (0.7-2.1)
[2023-12-31 01:40] LABS: Reflex Lactic (2 hrs) Add Lactic Reflex
[2023-12-31 02:05] LABS: Troponin I < 0.01 ng/ml (0.00-0.034)
[2023-12-31 04:00] VITALS: BP 121/58; PULSE 54; RESP 18; TEMP 36.9; O2SAT 98; BMI 17.4
[2023-12-31] MEDS: METOCLOPRAMIDE HCL 10MG/2ML VIAL 10 MG IVP ×3 (04:30→20:38)
[2023-12-31] MEDS: ONDANSETRON 4MG/2ML VIAL 4 MG IV ×2 (04:30→07:28)
--- NOTE | 2023-12-31 05:12 | PC.NURSE ---
Pt is alert and oriented. Vomiting throughout the night, notified ASPEN Johnson, treated per sep. Pt has been incontinent one time due to vomiting, no diarrhea since. Pt has voiced no concerns. Brown emesis noted in emesis bag, full bag noted this shift. Call light in reach.
[2023-12-31 06:12] LABS: POC Glucose,Bedside 109 (70-110)
[2023-12-31 06:31] LABS: Chloride 108 mmol/L (98-107)
[2023-12-31 06:32] LABS: Basophils % 0.1 % (0.1-2.0); Hematocrit 42.2 % (42.0-52.0); Lymphocytes % 6.3 % (10-50); Mean Corpuscular HGB Conc 33.4 g/dL (31.8-35.4); Mean Corpuscular Hemoglobin 29.6 pg (27.0-31.2); Mean Corpuscular Volume 88.7 fl (80-94); Monocytes # 0.6 K/mm3 (0.1-1.0); Monocytes % 3.6 % (1.7-9.3); Neutrophils # 14.2 K/mm3 (1.8-7.8); Neutrophils % 89.9 % (37.0-80.0); Platelet Count 308 K/mm3 (142-424); Potassium 3.6 mmoL/L (3.5-5.1); Red Blood Count 4.76 M/mm3 (4.60-6.20); Red Cell Distribution Width 13.5 % (11.5-17.5); Sodium 146 mmol/L (136-145); White Blood Count 15.8 K/mm3 (4.8-10.8)
[2023-12-31 06:34] LABS: Alanine Aminotransferase 24 U/L (12-78); Alkaline Phosphatase 65 U/L (38-126); Anion Gap 12.6 mEq/L (5-15); Aspartate Amino Transferase 35 U/L (17-59); Bilirubin,Total 0.5 mg/dl (0.2-1.3); Blood Urea Nitrogen 17 mg/dl (9-20); Carbon Dioxide 29 mmol/L (22.0-30.0); Creatinine Clearance Estimated 116 mL/min (50-200); Estimated Glomerular Filt Rate 139 ml/min (>60); GFR (African American) 168 ML/MIN (>60)
[2023-12-31 06:35] LABS: Albumin Level 4.5 g/dl (3.5-5.0); Albumin/Globulin Ratio 1.8 (1.1-1.8); Calcium 9.8 mg/dl (8.4-10.2); Globulin 2.5 g/dL (1.3-3.2); Glucose 118 mg/dl (74-100); Magnesium 1.6 mg/dl (1.6-2.3)
[2023-12-31 06:43] LABS: MANUAL DIFFERENTIAL MANUAL DIFFERENTIAL (MANUAL DIFF)
[2023-12-31 07:01] LABS: Lymphocytes % 10 % (10-50); Neutrophils % 90 % (42-76); Platelet Estimate Normal; RBC Morphology Normal; Total Cells Counted 100
[2023-12-31 08:00] VITALS: BP 134/88; PULSE 75; RESP 18; TEMP 36.7; O2SAT 97
[2023-12-31] MEDS: ENOXAPARIN 40MG/0.4ML SYRINGE 40 MG SQ (08:02)
[2023-12-31] MEDS: PIPERACILLIN/TAZO 3.375 GM in 0.9 % SODIUM CHLORIDE 50 ML IV ×3 (09:17→20:38)
[2023-12-31] MEDS: 0.9 % SODIUM CHLORIDE 1000ML 1,000 ML 100 ML IV ×2 (09:17→20:43)
[2023-12-31 11:00] LABS: Adenovirus F 40/41, stool Not Detected (NotDetected); Astrovirus Not Detected (NotDetected); Campylobacter Not Detected (NotDetected); Clostridium Difficile A/B, PCR Not Detected (NotDetected); Cryptosporidium Not Detected (NotDetected); Cyclospora Cayetanesis Not Detected (NotDetected); Entamoeba histolytica Not Detected (NotDetected); Enteroaggregative E coli Not Detected (NotDetected); Enteropathogenic E coli Not Detected (NotDetected); Enterotoxigenic E coli Not Detected (NotDetected); Giardia lamblia Not Detected (NotDetected); Norovirus Not Detected (NotDetected); Plesimonas Shigalloides, PCR Not Detected (NotDetected); Rotavirus A Not Detected (NotDetected); Salmonella, PCR Not Detected (NotDetected); Sapovirus Not Detected (NotDetected); Shiga-like toxin E coli Not Detected (NotDetected); Shigella Enterovasive E coli Not Detected (NotDetected); Vibrio Cholerae Not Detected (NotDetected); Vibrio, PCR Not Detected (NotDetected); Yersinia Entercolitica, PCR Not Detected (NotDetected)
[2023-12-31 11:04] LABS: POC Glucose,Bedside 307 (70-110)
[2023-12-31] MEDS: humaLOG 100 UNITS/ML 10ML VIAL (SSI) SQ ×2 (11:04→23:13)
[2023-12-31] MEDS: PROMETHAZINE HCL 25MG/ML 1ML VIAL 25 MG IV ×2 (11:04→17:45)
[2023-12-31] MEDS: MORPHINE 2MG/ML SYRINGE 2 MG IV (11:19)
[2023-12-31 12:05] VITALS: BP 104/53; PULSE 59; RESP 18; TEMP 37.1; O2SAT 100
--- NOTE | 2023-12-31 13:40 | EXP.PN ---
Subjective *Date: 12/31/23 *Time: 13:40 Interval history: seen at bedside, complains of LLQ abdominal pain, did vomiting today morning Exam Data for Last 24 hours Vital signs and Labs for Last 24 Hours: Temp Pulse Resp BP Pulse Ox O2 Del Method 98.7 F 59 L 18 104/53 L 100 Room Air 12/31/23 12:05 12/31/23 12:05 12/31/23 12:12/31/23 12:05 12/31/23 12:12/31/23 12:05 Laboratory Results - last 24 hr 12/30/23 19:14: WBC 15.3 H, RBC 5.59, Hgb 16.8, Hct 49.7, MCV 88.9, MCH 30.0, MCHC 33.7, RDW 13.3, Plt Count 355, MPV 7.2 L, Neut % (Auto) 79.3, Lymph % (Auto) 14.9, [place] % (Auto) 4.8, Eos % (Auto) 0.3, Baso % (Auto) 0.6, Neut # (Auto) 12.2 H, Lymph # (Auto) 2.3, [place] # (Auto) 0.7, Eos # (Auto) 0.1, Baso # (Auto) 0.1, Total Counted 100, Neutrophils % (Manual) 73, Band Neutrophils % 1.0, Lymphocytes % (Manual) 19, Atypical Lymphs % 2.0, Monocytes % (Manual) 4, Eosinophils % (Manual) 1, Platelet Estimate Normal, RBC Morphology Normal, Sodium 143, Potassium 3.7, Chloride 103, Carbon Dioxide 21 L, Anion Gap 22.7 H, BUN 18, Creatinine 0.90, Estimated Creat Clear 93, Estimated GFR 104, Est GFR ( Amer) 125, Glucose 382 H, Calcium 10.8 H, Phosphorus 3.2, Magnesium 1.7, Total Bilirubin 0.8, AST 51, ALT 39, Alkaline Phosphatase 90, Troponin I < 0.01, Total Protein 8.9 H D, Albumin 5.6 H, Globulin 3.3 H, Albumin/Globulin Ratio 1.7, Lipase 29, Salicylates < 1.0 L, Acetaminophen < 10 L, Plasma/Serum Alcohol < 10 12/30/23 19:17: VBG pH 7.49 H, VBG pCO2 23.7 L, VBG pO2 122.0 H, VBG HCO3 17.6 L, VBG Total CO2 18.3 L, VBG O2 Saturation 99.0 H, VBG Base Excess -5.8 L, VBG Lactic Acid 5.2 H 12/30/23 21:50: Urine Color Yellow, Urine Appearance Clear, Urine pH 8.5, Ur Specific [place] 1.010, Urine Protein Negative, Urine Glucose (UA) 2+, Urine Ketones 1+, Urine Blood Negative, Urine Nitrate Negative, Urine Bilirubin Negative, Urine Urobilinogen 1.0, Ur Leukocyte Esterase Negative, Urine RBC None, Urine WBC Occasional, Ur Squamous Epith Cells Occasional, Urine Bacteria None, Urine Opiates Screen Negative, Urine Methadone Screen Negative, Ur Barbituates Screen Negative, Ur Phencyclidine Scrn Negative, Ur Amphetamines Screen Negative, U Benzodiazepines Scrn Negative, Urine Cocaine Screen Negative, U Marijuana (THC) Screen Positive H 12/30/23 22:15: Troponin I < 0.01 12/30/23 23:15: Lactate 2.7 H 12/31/23 01:20: Lactate 2.0, Troponin I < 0.01 12/31/23 05:38: WBC 15.8 H, RBC 4.76, Hgb 14.0 L D, Hct 42.2, MCV 88.7, MCH 29.6, MCHC 33.4, RDW 13.5, Plt Count 308, MPV 7.0 L, Neut % (Auto) 89.9 H, Lymph % (Auto) 6.3 L, [place] % (Auto) 3.6, Eos % (Auto) 0.0 L, Baso % (Auto) 0.1, Neut # (Auto) 14.2 H, Lymph # (Auto) 1.0, [place] # (Auto) 0.6, Eos # (Auto) 0.0, Baso # (Auto) 0.0, Total Counted 100, Neutrophils % (Manual) 90 H, Lymphocytes % (Manual) 10, Platelet Estimate Normal, RBC Morphology Normal, Sodium 146 H, Potassium 3.6, Chloride 108 H, Carbon Dioxide 29, Anion Gap 12.6, BUN 17, Creatinine 0.70 D, Estimated Creat Clear 116, Estimated GFR 139, Est GFR ( Amer) 168 D, Glucose 118 H D, POC Glucose 109, Calcium 9.8, Magnesium 1.6, Total Bilirubin 0.5, AST 35 D, ALT 24 D, Alkaline Phosphatase 65, Total Protein 7.0, Albumin 4.5 D, Globulin 2.5, Albumin/Globulin Ratio 1.8 12/31/23 10:55: POC Glucose 307 H* I & O for Last 24 hours: Intake & Output 12/28/23 12/29/23 12/30/23 12/31/23 23:59 23:59 23:59 23:59 Intake Total 406 / 406 Output Total 0 / 0 Balance 406 / 406 Weight 50.604 kg 50.434 kg Constitutional Constitutional: no acute distress *Routine HEENT Exam Head: Present normocephalic Eye: Present EOMI and PERRL ENT: Present mucous membranes moist *Routine Neck Exam Neck: Present supple; Absent lymphadenopathy *Routine Respiratory Exam Respiratory: Present CTA bilaterally *Routine Cardiovascular Exam Cardiovascular: Present RRR *Routine Abdominal Exam Abdominal: Present soft and normoactive bowel sounds; Absent tenderness *Routine Extremities Exam Extremities: Absent cyanosis, clubbing or edema *Routine Skin Exam Skin: Present warm; Absent rash *Routine Neurological Exam Neurological: Present alert and oriented X3 Assessment and Plan *Assessment and plan (1) Colitis: Status: Acute Category: Medical Code(s): K52.9 - Noninfective gastroenteritis and colitis, unspecified (2) Dehydration, moderate: Status: Acute Category: Medical Code(s): E86.0 - Dehydration (3) Intractable nausea and vomiting: Status: Acute Category: Medical Code(s): R11.2 - Nausea with vomiting, unspecified (4) Abdominal pain: Status: Acute Qualifiers: Abdominal location: unspecified location Qualified Code(s): R10.9 - Unspecified abdominal pain Category: Medical Code(s): R10.9 - Unspecified abdominal pain (5) Diabetic gastroparesis: Status: Acute Category: Medical Code(s): E11.43 - Type 2 diabetes mellitus with diabetic autonomic (poly)neuropathy; K31.84 - Gastroparesis (6) Diabetes mellitus type 1: Status: Acute Qualifiers: Diabetes mellitus complication status: with other specified complication Qualified Code(s): E10.69 - Type 1 diabetes mellitus with other specified complication Category: Medical Code(s): E10.9 - Type 1 diabetes mellitus without complications Plan 23-year-old male with PMHX insulin-dependent diabetic, medically non compliant, hyperthyroidism presented today with nausea, vomiting and abdominal discomfort. Denies any melena or hematochezia but has had some dark emesis. On arrival patient hemodynamically stable. Initial workup grossly negative except for hyperglycemia, there is no signs of acidosis or DKA. CT of the abdomen showed colitis diarrhea panel pending. -Intractable abdominal pain likely secondary to colitis Nausea and vomiting, conditions please rule out diabetic gastroparesis versus cannabinoid hyperemesis Dehydration moderate: Continue IV hydration start IV zosyn for possible colitis, abdominal tenderness matched with site of colitis on scan Diarrhea panel pending. CT of the abdomen shows colitis UA showed positive for cannabis Continue monitoring for vital signs. Repeat labs in the morning. Watch for electrolyte imbalance. Replace per protocol Zofran Phenergan as needed Reglan 10 mg 3 times daily Protonix IV Repeat labs in the morning -Type 1 diabetes: Noncompliant On sliding scale Accu-Chek Monitor for hypoglycemia Resume home insulin regimen Lovenox for DVT prophylaxis Full code start IV zosyn, advance diet to [facility]
[2023-12-31 15:41] VITALS: BP 105/50; PULSE 63; RESP 18; TEMP 37.2; O2SAT 98
[2023-12-31 16:46] LABS: POC Glucose,Bedside 140 (70-110)
--- NOTE | 2023-12-31 16:57 | PC.NURSE ---
pt has been resting in bed majority of shift. pt has c/o n/v on and off throughout shift. pt was medicated per SEP. pt has had no other complaints today. MD started pt on IV antibiotics (see SEP) and hopes for d/c within next two days. MD ordered clear liq. diet and wants pt to advance as [email or web address] new orders at this time. call light within reach.
[2023-12-31 20:00] VITALS: BP 104/52; PULSE 46; RESP 16; TEMP 37.2; O2SAT 99
[2023-12-31] MEDS: SODIUM CHLORIDE 0.9% 10ML VIAL 10 ML IV (20:38)
[2023-12-31] MEDS: PANTOPRAZOLE 40MG VIAL 40 MG IV (20:38)
[2023-12-31 23:10] LABS: POC Glucose,Bedside 269 (70-110)
[2024-01-01] MEDS: PIPERACILLIN/TAZO 3.375 GM in 0.9 % SODIUM CHLORIDE 50 ML IV ×4 (03:20→20:58)
[2024-01-01 04:00] VITALS: BP 133/96; PULSE 54; RESP 20; TEMP 36.9; O2SAT 97; BMI 17.4
[2024-01-01] MEDS: METOCLOPRAMIDE HCL 10MG/2ML VIAL 10 MG IVP ×3 (04:55→20:58)
[2024-01-01 05:14] LABS: POC Glucose,Bedside 229 (70-110)
[2024-01-01] MEDS: humaLOG 100 UNITS/ML 10ML VIAL (SSI) SQ ×2 (05:16→11:34)
[2024-01-01] MEDS: PROMETHAZINE HCL 25MG/ML 1ML VIAL 25 MG IV ×2 (05:34→10:55)
[2024-01-01] MEDS: SODIUM CHLORIDE 0.9% 25ML BAG 25 ML IV ×2 (05:34→10:56)
--- NOTE | 2024-01-01 05:53 | PC.NURSE ---
Patient is alert and oriented x4. Patient has rested throughout most of the shift. Patient's lungs sounds were clear, heart rate is bradycardic, and bowel sounds were not heard during assessment. Patient reported tenderness in his abdomen. Patient is on a clear liquid diet and will be planned for discharge if his diet advances and he tolerates it well. Patient was given an apple juice at around 0250 today and drank about half of it and tolerated it well. However, patient started having nausea and vomiting at 0520 today; he was treated with phenergan per MAR. Patient has also been hyperglycemic during this shift. At 2100, his bedside glucose was 269 and was given 10 units Humalog insulin; at 0500, his bedside glucose was 229 and was given 7 units Humalog insulin. Patient also started complaining that his IV (left antecubital) was starting to bother him, stating it was burning but refused replacement of his IV and understands that he will notify the nurse if he changes his mind to replace the IV. Patient is currently resting in bed at this time. Call light is within reach.
[2024-01-01 07:02] LABS: Basophils % 0.2 % (0.1-2.0); Hematocrit 42.7 % (42.0-52.0); Lymphocytes # 1.9 K/mm3 (0.7-4.5); Lymphocytes % 9.5 % (10-50); Mean Corpuscular HGB Conc 32.8 g/dL (31.8-35.4); Mean Corpuscular Volume 91.6 fl (80-94); Mean Platelet Volume 7.5 fl (7.4-10.4); Monocytes # 1.1 K/mm3 (0.1-1.0); Monocytes % 5.4 % (1.7-9.3); Neutrophils # 16.9 K/mm3 (1.8-7.8); Neutrophils % 84.9 % (37.0-80.0); Platelet Count 261 K/mm3 (142-424); Red Blood Count 4.66 M/mm3 (4.60-6.20); Red Cell Distribution Width 13.4 % (11.5-17.5); White Blood Count 19.9 K/mm3 (4.8-10.8)
[2024-01-01 07:06] LABS: MANUAL DIFFERENTIAL MANUAL DIFFERENTIAL (MANUAL DIFF)
[2024-01-01 07:13] LABS: Chloride 111 mmol/L (98-107); Potassium 3.4 mmoL/L (3.5-5.1); Sodium 145 mmol/L (136-145)
[2024-01-01 07:15] LABS: Blood Urea Nitrogen 20 mg/dl (9-20); Creatinine Clearance Estimated 101 mL/min (50-200); Estimated Glomerular Filt Rate 119 ml/min (>60); GFR (African American) 144 ML/MIN (>60)
[2024-01-01 07:16] LABS: Alanine Aminotransferase 22 U/L (12-78); Albumin Level 4.2 g/dl (3.5-5.0); Alkaline Phosphatase 73 U/L (38-126); Anion Gap 21.4 mEq/L (5-15); Aspartate Amino Transferase 27 U/L (17-59); Carbon Dioxide 16 mmol/L (22.0-30.0); Globulin 2.1 g/dL (1.3-3.2); Total Protein,Serum 6.3 g/dl (6.3-8.2)
[2024-01-01 07:17] LABS: Glucose 273 mg/dl (74-100)
[2024-01-01 08:00] VITALS: BP 137/76; PULSE 50; RESP 18; TEMP 37; O2SAT 99
[2024-01-01] MEDS: ONDANSETRON 4MG/2ML VIAL 4 MG IV ×2 (08:20→17:44)
[2024-01-01] MEDS: ENOXAPARIN 40MG/0.4ML SYRINGE 40 MG SQ (08:20)
[2024-01-01] MEDS: INSULIN GLARGINE 100 UNITS/ML 3ML FLEXPEN 10 UNIT SQ (08:23)
[2024-01-01 08:57] LABS: Lymphocytes % 11 % (10-50); Monocytes % 2 % (2-9); Neutrophils % 87 % (42-76); Platelet Estimate Normal; RBC Morphology Normal; Total Cells Counted 100
[2024-01-01 10:21] VITALS: BMI 17.4
[2024-01-01] MEDS: 0.9 % SODIUM CHLORIDE 1000ML 1,000 ML 100 ML IV (10:36)
[2024-01-01 11:36] LABS: POC Glucose,Bedside 245 (70-110)
[2024-01-01 11:57] LABS: Hemoglobin A1C 7.6 % (4.0-6.0)
[2024-01-01 16:00] VITALS: BP 98/63; PULSE 68; RESP 18; TEMP 36.8; O2SAT 96
[2024-01-01 16:22] LABS: POC Glucose,Bedside 141 (70-110)
--- NOTE | 2024-01-01 17:21 | P.PN_ITS ---
Subjective *Date: 01/01/24 *Time: 18:11 Interval history: Continues to have persistent nausea. Tolerates p.o. fluids and small amounts. States his hot shower last night made his nausea better. Having active bowel sounds. No further diarrhea. Denies any chest pain or shortness of breath. Medical Exam Vital signs and Labs for Last 24 Hours: Vital Signs Temp Pulse Pulse Resp BP Pulse Ox O2 Del Method 01/01/24 17:00 Room Air 01/01/24 16:00 98.2 F 68 18 98/63 L 96 Room Air 01/01/24 15:00 Room Air 01/01/24 13:00 Room Air 01/01/24 11:00 Room Air 01/01/24 09:00 Room Air 01/01/24 08:00 Room Air 01/01/24 08:00 98.6 F 50 L 18 137/76 99 Room Air 01/01/24 07:00 Room Air 01/01/24 05:00 Room Air 01/01/24 04:00 98.5 F 54 L 20 133/96 H 97 Room Air 01/01/24 02:50 Room Air 01/01/24 00:50 Room Air 12/31/23 23:00 Room Air 12/31/23 21:00 Room Air 12/31/23 20:00 46 L 16 99 Room Air 12/31/23 20:00 98.9 F 46 L 16 104/52 L 99 Room Air 12/31/23 18:38 Room Air Intake and Output 01/01/24 01/01/24 01/01/24 07:59 15:59 23:59 Intake Total 811 / 931 120 / 931 Output Total 0 / 0 Balance 811 / 931 120 / 931 Intake: Intake, Oral Amount 120 / 240 120 / 240 Intake, Total IV Amount 691 / 691 0.9 % Sodium Chloride 1000ML 1, 591 / 591 000 ml @ 100 mls/hr IV .Q10H MARCELO Rx#:[id number] Piperacillin/Tazo 3.375 gm In 0 100 / 100 .9 % Sodium Chloride 50 ml @ 100 mls/hr IV Q6H MARCELO Rx#: [id number] Output: Output, Urine Amount 0 / 0 Other: Number of Unmeasured Emesis 2 Episodes Weight 50.394 kg 50.39 kg Patient Weight 01/01/24 23:59 Weight 50.39 kg Laboratory Results - last 24 hr 12/31/23 23:02: POC Glucose 269 H 01/01/24 05:03: POC Glucose 229 H 01/01/24 05:50: WBC 19.9 H D, RBC 4.66, Hgb 14.0 L, Hct 42.7, MCV 91.6, MCH 30.0, MCHC 32.8, RDW 13.4, Plt Count 261, MPV 7.5, Neut % (Auto) 84.9 H, Lymph % (Auto) 9.5 L, [place] % (Auto) 5.4, Eos % (Auto) 0.0 L, Baso % (Auto) 0.2, Neut # (Auto) 16.9 H, Lymph # (Auto) 1.9, [place] # (Auto) 1.1 H, Eos # (Auto) 0.0, Baso # (Auto) 0.0, Total Counted 100, Neutrophils % (Manual) 87 H, Lymphocytes % (Manual) 11, Monocytes % (Manual) 2, Platelet Estimate Normal, RBC Morphology Normal, Sodium 145, Potassium 3.4 L, Chloride 111 H, Carbon Dioxide 16 L, Anion Gap 21.4 H, BUN 20, Creatinine 0.80, Estimated Creat Clear 101, Estimated GFR 119, Est GFR ( Amer) 144, Glucose 273 H, Hemoglobin A1c 7.6 H, Calcium 9.0, Total Bilirubin 1.0, AST 27, ALT 22, Alkaline Phosphatase 73, Total Protein 6.3, Albumin 4.2, Globulin 2.1, Albumin/Globulin Ratio 2.0 H 01/01/24 11:29: POC Glucose 245 H 01/01/24 16:14: POC Glucose 141 H I & O for Labs for Last 24 Hours: Intake & Output 12/29/23 12/30/23 12/31/23 01/01/24 23:59 23:59 23:59 23:59 Intake Total 466 / 466 931 / 931 Output Total 0 / 0 0 / 0 Balance 466 / 466 931 / 931 Weight 50.604 kg 50.434 kg 50.39 kg Constitutional: Present mild distress, thin and chronically ill appearing Head: Present atraumatic and normocephalic ENT: Present normal exam Neck: Present normal inspection Respiratory: Present normal respiratory effort; Absent rhonchi, wheezes or crackles Cardiac: Present Reg Rate and Rhythm GI: Present soft, tenderness (Diffuse, nonfocal) and diminished bowel sounds; Absent distention, guarding or rebound Extremities: Present normal inspection and full ROM Skin: Present intact; Absent erythema Neuro: Present Grossly Intact, alert, awake, oriented x 3 and moves all extremities Assessment and Plan *Assessment and plan (1) Intractable nausea and vomiting: Status: Acute Category: Medical Code(s): R11.2 - Nausea with vomiting, unspecified (2) Colitis: Status: Acute Category: Medical Code(s): K52.9 - Noninfective gastroenteritis and colitis, unspecified (3) Dehydration, moderate: Status: Acute Category: Medical Code(s): E86.0 - Dehydration (4) Abdominal pain: Status: Acute Qualifiers: Abdominal location: unspecified location Qualified Code(s): R10.9 - Unspecified abdominal pain Category: Medical Code(s): R10.9 - Unspecified abdominal pain (5) Diabetic gastroparesis: Status: Acute Category: Medical Code(s): E11.43 - Type 2 diabetes mellitus with diabetic autonomic (poly)neuropathy; K31.84 - Gastroparesis (6) Diabetes mellitus type 1: Status: Acute Qualifiers: Diabetes mellitus complication status: with other specified complication Qualified Code(s): E10.69 - Type 1 diabetes mellitus with other specified complication Category: Medical Code(s): E10.9 - Type 1 diabetes mellitus without complications Plan 23-year-old male with PMHX insulin-dependent diabetic, medically non compliant, hyperthyroidism presented today with nausea, vomiting and abdominal discomfort. Denies any melena or hematochezia but has had some dark emesis. On arrival patient hemodynamically stable. Initial workup grossly negative except for hyperglycemia, there is no signs of acidosis or DKA. CT of the abdomen showed colitis. Diarrhea panel negative. Continues to have poor p.o. intake necessitating inpatient management. Continuing IV fluids. Problems addressed as follows: Intractable abdominal pain likely secondary to colitis Nausea and vomiting, conditions please rule out diabetic gastroparesis versus cannabinoid hyperemesis Dehydration moderate: -Continue IV hydration With NS at 100 cc an hour -GI cocktail as needed every 6 hours -Continue pantoprazole 40 mg nightly -Continue Reglan 10 mg every 8 hours as needed for nausea -Alternate with Zofran 4 mg every -Continue Zosyn for suspected colitis. Reevaluate antibiotic usage tomorrow. -I have ordered CBC, CMP, magnesium for the morning. White count elevated at 19.9 today. -Type 1 diabetes: Noncompliant A1c 7.1 Continue sliding scale insulin with fingersticks ACHS. Receiving decreased dose of long-acting insulin this evening. Kidney function normal with creatinine of 0.8, BUN 20. Mild anion gap due to nausea and vomiting With bicarb of 16. lovenox for DVT prophylaxis Full code Clear liquid diet
--- NOTE | 2024-01-01 17:28 | PC.WOUNDNOTE ---
Patient has been very lethargic this shift. Each time entering the room, the patient is found curled up in the position in bed. Patient has been complaining of nausea and vomiting throughout the shift, with some relief from the Zofran and Phenergan given per MAR. 1100 fsbs wAS 245, PT given 7u insulin. 1600 fsbs was 141, no insulin given. Mother has been at bedside all shift. Zosyn given per MAR twice this shift. Patient is reluctant to participate in care. Patient will mainly shake head yes or no to respond to questions. Dr. Schultz spoke with the patient about taking warm showers for relief. Patient took shower around 1700 and stated that he experienced some relief. Patient is receiving NS @100. Patient was given last dose of zofran at 1744, in addition to GI cocktail for throat discomfort. Dinner trays were delivered at this time and the patient took a drink of lemonade, which was immediately vomited up. Patient still complains of GI discomfort at this time. Call light is within reach. Will continue to monitor.
[2024-01-01] MEDS: BELLADONNA ALKALOIDS 60 ML ML PO (17:44)
[2024-01-01 20:00] VITALS: BP 129/76; PULSE 77; RESP 18; TEMP 37; O2SAT 97
[2024-01-01] MEDS: PANTOPRAZOLE 40MG VIAL 40 MG IV (20:57)
[2024-01-01] MEDS: INSULIN GLARGINE 100 UNITS/ML 3ML FLEXPEN 15 UNIT SQ (20:58)
[2024-01-01 21:25] LABS: POC Glucose,Bedside 200 (70-110)
[2024-01-02 00:10] LABS: POC Glucose,Bedside 213 (70-110)
[2024-01-02] MEDS: humaLOG 100 UNITS/ML 10ML VIAL (SSI) SQ ×3 (00:10→23:09)
[2024-01-02] MEDS: PIPERACILLIN/TAZO 3.375 GM in 0.9 % SODIUM CHLORIDE 50 ML IV ×2 (03:59→08:46)
[2024-01-02 04:00] VITALS: BP 126/76; PULSE 44; RESP 18; TEMP 36.6; O2SAT 98; BMI 17.3
--- NOTE | 2024-01-02 05:18 | PC.NURSE ---
Pt continues to have small episodes of emesis throughout the night. He has been able to tolerate some clear liquids at times. Pt has slept on and off through the night and continues to favor position
[2024-01-02] MEDS: METOCLOPRAMIDE HCL 10MG/2ML VIAL 10 MG IVP ×3 (05:32→20:07)
[2024-01-02 05:53] LABS: POC Glucose,Bedside 112 (70-110)
[2024-01-02 07:53] VITALS: BP 137/82; PULSE 78; RESP 18; TEMP 37.1; O2SAT 99
[2024-01-02 08:41] LABS: Chloride 113 mmol/L (98-107); Potassium 3.6 mmoL/L (3.5-5.1); Sodium 149 mmol/L (136-145)
[2024-01-02 08:43] LABS: Blood Urea Nitrogen 22 mg/dl (9-20); Creatinine Clearance Estimated 101 mL/min (50-200); Estimated Glomerular Filt Rate 119 ml/min (>60); GFR (African American) 144 ML/MIN (>60)
[2024-01-02 08:44] LABS: Alanine Aminotransferase 32 U/L (12-78); Albumin Level 4.3 g/dl (3.5-5.0); Albumin/Globulin Ratio 1.9 (1.1-1.8); Alkaline Phosphatase 78 U/L (38-126); Anion Gap 13.6 mEq/L (5-15); Aspartate Amino Transferase 52 U/L (17-59); Basophils % 0.3 % (0.1-2.0); Bilirubin,Total 0.7 mg/dl (0.2-1.3); Calcium 9.1 mg/dl (8.4-10.2); Carbon Dioxide 26 mmol/L (22.0-30.0); Globulin 2.3 g/dL (1.3-3.2); Glucose 135 mg/dl (74-100); Hematocrit 41.3 % (42.0-52.0); Hemoglobin 13.7 g/dL (14.1-18.0); Lymphocytes # 1.5 K/mm3 (0.7-4.5); Lymphocytes % 10.2 % (10-50); Mean Corpuscular HGB Conc 33.3 g/dL (31.8-35.4); Mean Corpuscular Hemoglobin 29.6 pg (27.0-31.2); Mean Corpuscular Volume 88.9 fl (80-94); Mean Platelet Volume 7.5 fl (7.4-10.4); Monocytes # 0.8 K/mm3 (0.1-1.0); Monocytes % 5.6 % (1.7-9.3); Neutrophils # 11.9 K/mm3 (1.8-7.8); Neutrophils % 83.9 % (37.0-80.0); Platelet Count 277 K/mm3 (142-424); Red Blood Count 4.65 M/mm3 (4.60-6.20); Red Cell Distribution Width 13.5 % (11.5-17.5); Total Protein,Serum 6.6 g/dl (6.3-8.2); White Blood Count 14.2 K/mm3 (4.8-10.8)
[2024-01-02] MEDS: ENOXAPARIN 40MG/0.4ML SYRINGE 40 MG SQ (08:46)
[2024-01-02] MEDS: BELLADONNA ALKALOIDS 60 ML ML PO (11:49)
[2024-01-02 16:00] VITALS: BP 132/71; PULSE 57; RESP 16; TEMP 37.1; O2SAT 96
[2024-01-02] MEDS: MORPHINE 2MG/ML SYRINGE 2 MG IV (16:40)
[2024-01-02] MEDS: ONDANSETRON 4MG/2ML VIAL 4 MG IV (16:41)
--- NOTE | 2024-01-02 18:20 | PC.NURSE ---
PT STILL EXPERIENCING INTERMITTENT N/V THROUGHOUT THE DAY. HAS BEEN MEDICATED PER MAR. HAS TAKEN MULTIPLE SHOWERS WHICH PT REPORTS HELPS WITH HIS SYMPTOMS.
--- NOTE | 2024-01-02 19:20 | EXP.ACUTE.PN ---
Subjective *Date: 01/02/24 *Time: 19:20 Interval history: Continues to have persistent nausea. Emesis x 1 this morning. Tolerating p.o. fluids thereafter. Voiding independently. States his hot shower last night made his nausea better. 1 bowel movement this morning, liquidy. Denies any chest pain or shortness of breath. Medical Exam Vital signs and Labs for Last 24 Hours: Vital Signs Temp Pulse Pulse Resp BP Pulse Ox O2 Del Method 01/02/24 18:21 Room Air 01/02/24 17:00 Room Air 01/02/24 16:00 98.7 F 57 L 16 132/71 96 Room Air 01/02/24 15:00 Room Air 01/02/24 13:00 Room Air 01/02/24 11:00 Room Air 01/02/24 09:00 Room Air 01/02/24 08:00 Room Air 01/02/24 07:53 98.7 F 78 18 137/82 99 Room Air 01/02/24 07:00 Room Air 01/02/24 06:54 Room Air 01/02/24 05:00 Room Air 01/02/24 04:00 98 F 44 L 18 126/76 98 Room Air 01/02/24 03:00 Room Air 01/02/24 01:00 Room Air 01/01/24 23:00 Room Air 01/01/24 21:00 Room Air 01/01/24 20:00 98.6 F 77 18 129/76 97 Room Air 01/01/24 20:00 Room Air Intake and Output 01/02/24 01/02/24 01/02/24 07:59 15:59 23:59 Intake Total 1100 / 1580 480 / 1580 Output Total 100 / 400 300 / 400 0 / 400 Balance 1000 / 1180 180 / 1180 0 / 1180 Intake: Intake, Oral Amount 600 / 1080 480 / 1080 Intake, Total IV Amount 500 / 500 0.9 % Sodium Chloride 1000ML 1, 500 / 500 000 ml @ 100 mls/hr IV .Q10H [facility] Rx#:[id number] Output: Output, Urine Amount 0 / 0 Output, Emesis Amount 100 / 400 300 / 400 Other: Number of Unmeasured Voids 3 1 Weight 49.986 kg Patient Weight 01/02/24 23:59 Weight 49.986 kg Laboratory Results - last 24 hr 01/01/24 21:13: POC Glucose 200 H 01/01/24 23:59: POC Glucose 213 H 01/02/24 05:41: POC Glucose 112 H 01/02/24 08:15: WBC 14.2 H D, RBC 4.65, Hgb 13.7 L, Hct 41.3 L, MCV 88.9, MCH 29.6, MCHC 33.3, RDW 13.5, Plt Count 277, MPV 7.5, Neut % (Auto) 83.9 H, Lymph % (Auto) 10.2, [place] % (Auto) 5.6, Eos % (Auto) 0.0 L, Baso % (Auto) 0.3, Neut # (Auto) 11.9 H, Lymph # (Auto) 1.5, [place] # (Auto) 0.8, Eos # (Auto) 0.0, Baso # (Auto) 0.0, Sodium 149 H, Potassium 3.6, Chloride 113 H, Carbon Dioxide 26, Anion Gap 13.6, BUN 22 H, Creatinine 0.80, Estimated Creat Clear 101, Estimated GFR 119, Est GFR ( Amer) 144, Glucose 135 H, Calcium 9.1, Magnesium 2.0 D, Total Bilirubin 0.7, AST 52 D, ALT 32 D, Alkaline Phosphatase 78, Total Protein 6.6, Albumin 4.3, Globulin 2.3, Albumin/Globulin Ratio 1.9 H I & O for Labs for Last 24 Hours: Intake & Output 12/30/23 12/31/23 01/01/24 01/02/24 23:59 23:59 23:59 23:59 Intake Total 466 / 466 / 2090 1580 / 1580 Output Total 0 / 0 0 / 100 400 / 400 Balance 466 / 466 1990 1180 / 1180 Weight 50.604 kg 50.434 kg 50.39 kg 49.986 kg Constitutional: Present mild distress, thin and chronically ill appearing Head: Present atraumatic and normocephalic ENT: Present normal exam Neck: Present normal inspection Respiratory: Present normal respiratory effort; Absent rhonchi, wheezes or crackles Cardiac: Present Reg Rate and Rhythm GI: Present soft, tenderness (Diffuse, nonfocal) and normal bowel sounds; Absent distention, guarding or rebound Extremities: Present normal inspection and full ROM Skin: Present intact; Absent erythema Neuro: Present Grossly Intact, alert, awake, oriented x 3 and moves all extremities Assessment and Plan *Assessment and plan (1) Intractable nausea and vomiting: Status: Acute Category: Medical Code(s): R11.2 - Nausea with vomiting, unspecified (2) Colitis: Status: Acute Category: Medical Code(s): K52.9 - Noninfective gastroenteritis and colitis, unspecified (3) Dehydration, moderate: Status: Acute Category: Medical Code(s): E86.0 - Dehydration (4) Abdominal pain: Status: Acute Qualifiers: Abdominal location: unspecified location Qualified Code(s): R10.9 - Unspecified abdominal pain Category: Medical Code(s): R10.9 - Unspecified abdominal pain (5) Diabetic gastroparesis: Status: Acute Category: Medical Code(s): E11.43 - Type 2 diabetes mellitus with diabetic autonomic (poly)neuropathy; K31.84 - Gastroparesis (6) Diabetes mellitus type 1: Status: Acute Qualifiers: Diabetes mellitus complication status: with other specified complication Qualified Code(s): E10.69 - Type 1 diabetes mellitus with other specified complication Category: Medical Code(s): E10.9 - Type 1 diabetes mellitus without complications Plan 23-year-old male with PMHX insulin-dependent diabetic, medically non compliant, hyperthyroidism presented today with nausea, vomiting and abdominal discomfort. Denies any melena or hematochezia but has had some dark emesis. On arrival patient hemodynamically stable. Initial workup grossly negative except for hyperglycemia, there is no signs of acidosis or DKA. CT of the abdomen showed colitis. Diarrhea panel negative. Continues to have poor p.o. intake necessitating inpatient management. Discontinue IV fluids, anticipate discharge in the next 24 hours. Problems addressed as follows: Intractable abdominal pain likely secondary to colitis Nausea and vomiting, conditions please rule out diabetic gastroparesis versus cannabinoid hyperemesis Dehydration moderate: -Aggressive p.o. hydration -GI cocktail as needed every 6 hours -Continue pantoprazole 40 mg nightly -Continue Reglan 10 mg every 8 hours as needed for nausea -Alternate with Zofran 4 mg every - No overt signs of infection, discontinue IV antibiotics; white cell count improved to 14, afebrile -I have ordered CBC, CMP, magnesium for the morning. - Kidney function normal with creatinine 0.8, BUN 22. Electrolytes stable with potassium 3.6, magnesium 2.0, -Type 1 diabetes: Noncompliant A1c 7.1 -Morning glucose 112, continue sliding scale insulin with fingersticks ACHS. Receiving decreased dose of long-acting insulin this evening. lovenox for DVT prophylaxis Full code Full liquid diet
[2024-01-02 20:00] VITALS: BP 158/84; PULSE 69; RESP 16; TEMP 36.7; O2SAT 98
[2024-01-02] MEDS: INSULIN GLARGINE 100 UNITS/ML 3ML FLEXPEN 20 UNIT SQ (20:06)
[2024-01-02] MEDS: PANTOPRAZOLE 40MG VIAL 40 MG IV (20:08)
[2024-01-03] VITALS: BP 143/83; PULSE 80; RESP 18; TEMP 36.9; O2SAT 99
[2024-01-03] MEDS: MORPHINE 2MG/ML SYRINGE 2 MG IV (01:35)
[2024-01-03] MEDS: ONDANSETRON 4MG/2ML VIAL 4 MG IV ×3 (01:35→15:43)
[2024-01-03 04:00] VITALS: BMI 17.4
[2024-01-03] MEDS: METOCLOPRAMIDE HCL 10MG/2ML VIAL 10 MG IVP ×2 (05:10→12:30)
[2024-01-03] MEDS: humaLOG 100 UNITS/ML 10ML VIAL (SSI) SQ ×2 (05:11→12:30)
--- NOTE | 2024-01-03 05:32 | PC.NURSE ---
Pt called out once this shift complaining of abdominal pain and nausea. Pt also reported an episode of vomiting. He was treated per MAR. He has slept most of the night favoring a position.
[2024-01-03 07:10] LABS: Chloride 108 mmol/L (98-107); Sodium 148 mmol/L (136-145)
[2024-01-03 07:14] LABS: Anion Gap 18.9 mEq/L (5-15); Blood Urea Nitrogen 22 mg/dl (9-20); Calcium 9.1 mg/dl (8.4-10.2); Carbon Dioxide 24 mmol/L (22.0-30.0); Creatinine Clearance Estimated 116 mL/min (50-200); Estimated Glomerular Filt Rate 139 ml/min (>60); GFR (African American) 168 ML/MIN (>60); Glucose 168 mg/dl (74-100)
[2024-01-03 07:20] LABS: Basophils % 0.2 % (0.1-2.0); Hematocrit 44.4 % (42.0-52.0); Hemoglobin 14.2 g/dL (14.1-18.0); Lymphocytes # 1.5 K/mm3 (0.7-4.5); Lymphocytes % 13.8 % (10-50); Mean Corpuscular Hemoglobin 29.2 pg (27.0-31.2); Mean Corpuscular Volume 91.5 fl (80-94); Mean Platelet Volume 7.6 fl (7.4-10.4); Monocytes # 0.6 K/mm3 (0.1-1.0); Monocytes % 5.2 % (1.7-9.3); Neutrophils # 8.8 K/mm3 (1.8-7.8); Neutrophils % 80.8 % (37.0-80.0); Platelet Count 289 K/mm3 (142-424); Red Blood Count 4.85 M/mm3 (4.60-6.20); Red Cell Distribution Width 13.4 % (11.5-17.5); White Blood Count 10.9 K/mm3 (4.8-10.8)
[2024-01-03 07:40] LABS: Potassium 2.9 mmoL/L (3.5-5.1)
[2024-01-03 07:47] VITALS: BP 138/72; PULSE 93; RESP 18; TEMP 36.7; O2SAT 95
--- NOTE | 2024-01-03 08:01 | P.PN_ITS ---
Subjective *Date: 01/03/24 *Time: 08:01 Medical Exam Vital signs and Labs for Last 24 Hours: Vital Signs Temp Pulse Resp BP Pulse Ox O2 Del Method 01/03/24 07:47 98.0 F 93 H 18 138/72 95 Room Air 01/03/24 06:49 Room Air 01/03/24 04:56 Room Air 01/03/24 03:00 Room Air 01/03/24 01:00 Room Air 01/03/24 00:00 98.4 F 80 18 143/83 H 99 Room Air 01/02/24 23:00 Room Air 01/02/24 21:00 Room Air 01/02/24 20:00 98.0 F 69 16 158/84 H 98 Room Air 01/02/24 20:00 Room Air 01/02/24 18:21 Room Air 01/02/24 17:00 Room Air 01/02/24 16:00 98.7 F 57 L 16 132/71 96 Room Air 01/02/24 15:00 Room Air 01/02/24 13:00 Room Air 01/02/24 11:00 Room Air 01/02/24 09:00 Room Air Intake and Output 01/02/24 01/03/24 01/03/24 23:59 07:59 15:59 Intake Total 100 / 100 Output Total 0 / 400 0 / 0 Balance 0 / 1280 100 / 100 Intake: Intake, Oral Amount 100 / 100 Output: Output, Urine Amount 0 / 0 0 / 0 Other: Number of Unmeasured Voids 1 1 Weight 50.434 kg Patient Weight 01/03/24 23:59 Weight 50.434 kg Laboratory Results - last 24 hr 01/02/24 08:15: WBC 14.2 H D, RBC 4.65, Hgb 13.7 L, Hct 41.3 L, MCV 88.9, MCH 29.6, MCHC 33.3, RDW 13.5, Plt Count 277, MPV 7.5, Neut % (Auto) 83.9 H, Lymph % (Auto) 10.2, [place] % (Auto) 5.6, Eos % (Auto) 0.0 L, Baso % (Auto) 0.3, Neut # (Auto) 11.9 H, Lymph # (Auto) 1.5, [place] # (Auto) 0.8, Eos # (Auto) 0.0, Baso # (Auto) 0.0, Sodium 149 H, Potassium 3.6, Chloride 113 H, Carbon Dioxide 26, Anion Gap 13.6, BUN 22 H, Creatinine 0.80, Estimated Creat Clear 101, Estimated GFR 119, Est GFR ( Amer) 144, Glucose 135 H, Calcium 9.1, Magnesium 2.0 D, Total Bilirubin 0.7, AST 52 D, ALT 32 D, Alkaline Phosphatase 78, Total Protein 6.6, Albumin 4.3, Globulin 2.3, Albumin/Globulin Ratio 1.9 H 01/03/24 05:58: WBC 10.9 H, RBC 4.85, Hgb 14.2, Hct 44.4, MCV 91.5, MCH 29.2, MCHC 32.0, RDW 13.4, Plt Count 289, MPV 7.6, Neut % (Auto) 80.8 H, Lymph % (Auto) 13.8, [place] % (Auto) 5.2, Eos % (Auto) 0.0 L, Baso % (Auto) 0.2, Neut # (Auto) 8.8 H, Lymph # (Auto) 1.5, [place] # (Auto) 0.6, Eos # (Auto) 0.0, Baso # (Auto) 0.0, Sodium 148 H, Potassium 2.9 L*, Chloride 108 H, Carbon Dioxide 24, Anion Gap 18.9 H, BUN 22 H, Creatinine 0.70, Estimated Creat Clear 116, Estimated GFR 139, Est GFR ( Amer) 168, Glucose 168 H D, Calcium 9.1 I & O for Labs for Last 24 Hours: Intake & Output 12/31/23 01/01/24 01/02/24 01/03/24 23:59 23:59 23:59 23:59 Intake Total 466 / 466 / 2090 1580 / 1680 100 / 100 Output Total 0 / 0 0 / 100 400 / 400 0 / 0 Balance 466 / 466 / 1990 1180 / 1280 100 / 100 Weight 50.434 kg 50.39 kg 49.986 kg 50.434 kg The patient's infection will respond to the chosen ABx?: Yes Is the patient receiving the right drug, dose, and route?: Yes Could a more targeted ABx be ordered?: No (PATIENT WBC IMPROVED TO 10.9, STILL WITH N/V. POSSIBLY D/C ABX.)
[2024-01-03] MEDS: ENOXAPARIN 40MG/0.4ML SYRINGE 40 MG SQ (09:07)
[2024-01-03] MEDS: KCl 10mEq/100ml 100 ML 100 MEQ IV ×2 (09:07→11:28)
[2024-01-03] MEDS: LACTATED RINGERS 1000ML 1,000 ML 500 ML IV (09:07)
[2024-01-03] MEDS: POTASSIUM CHLORIDE 20MEQ TAB 20 MEQ PO (09:08)
[2024-01-03] MEDS: PROMETHAZINE HCL 25MG/ML 1ML VIAL 25 MG IV (12:56)
[2024-01-03] MEDS: SODIUM CHLORIDE 0.9% 25ML BAG 25 ML IV (12:56)
--- NOTE | 2024-01-03 14:11 | EXP.DC.SUM ---
General Admission date:: 12/30/23 Discharge date: 01/03/24 HPI HPI HPI: This is a 23-year-old male with PMHX insulin-dependent diabetic, medically non compliant, hyperthyroidism presented today with nausea, vomiting and abdominal discomfort. Denies any melena or hematochezia but has had some dark emesis. States his blood sugar on his continuous monitor has been reading higher lately. Last A1c was greater than 10 he states. Has not had any fevers or chills or any other preceding symptoms other than this. on my assessment, GI PCR diarrhea panel still pending. No evidence of sepsis right now. Vital signs improved he has been comfortable for a few hours but upon waking him he is still throwing up and retching. Admitted for inpatient management Hospital Course Hospital Course Hospital Course: 23-year-old male with PMHX insulin-dependent diabetic, medically non compliant, hyperthyroidism presented today with nausea, vomiting and abdominal discomfort. Denies any melena or hematochezia but has had some dark emesis. On arrival patient hemodynamically stable. Initial workup grossly negative except for hyperglycemia, there is no signs of acidosis or DKA. CT of the abdomen showed colitis. Diarrhea panel negative. Multiple antiemetics used during admission. Patient would have intermittent breakthrough nausea and vomiting. Having bowel movements daily. Tolerating liquid diet. Differential includes cannabis hyperemesis syndrome, gastroparesis, cyclical vomiting. As his electrolytes normalized, he is tolerating p.o. fluids, making adequate urine, patient will discharge home with close outpatient follow-up with GI for further management. Problems addressed as follows: Intractable abdominal pain likely secondary to colitis Nausea and vomiting, differential diagnosis includes cyclic vomiting versus diabetic gastroparesis versus cannabinoid hyperemesis Dehydration moderate, Improved -Admit for management of intractable nausea and vomiting. Started on broad treatment with metoprolol for GERD component, GI cocktail for esophagitis, Reglan for nausea along with Zofran and Phenergan as needed administered intermittently. Patient had no overt signs of infection. Imaging of abdomen showed concern for decompressed colon versus possible colitis. Patient had white count initially that normalized. Stool panel obtained and negative for all analytes. Patient was able to advance to full liquid diet. Still having intermittent nausea but having bowel movements and urinating without IV fluids. Extensive discussion with patient about his symptoms and need for subspecialist evaluation. He has had previous episodes that have resolved at home. He feels he can manage things at home and would like to try doing this with oral antiemetics. Agree to discharge through shared decision making. Patient clinically stable. Electrolytes Chemistry showing potassium at 3, kidney function normal with creatinine 0.7, glucose 185. Mag 2.0, calcium 9.1 on morning of discharge. Follow-up appointment scheduled with GI at [facility]. -Type 1 diabetes: Previously noncompliant, A1c now 7.1. Morning glucoses in the low 100s. Monitored with fingersticks, glucose less than 200 over the 48 hours prior to discharge. Recommend resuming home insulin regimen. Patient managing well with freestyle tomasz/continuous glucose monitor usage. Total time spent on discharge 32 minutes in counseling, documentation, chart review, and direct care with patient. Exam Data for Last 24 hours Vital signs and Labs for Last 24 Hours: Temp Pulse Resp BP Pulse Ox O2 Del Method 98.0 F 93 H 18 138/72 95 Room Air 01/03/24 07:47 01/03/24 07:47 01/03/24 07:47 01/03/24 07:47 01/03/24 07:47 01/03/24 13:00 Laboratory Results - last 24 hr 01/03/24 05:58: WBC 10.9 H, RBC 4.85, Hgb 14.2, Hct 44.4, MCV 91.5, MCH 29.2, MCHC 32.0, RDW 13.4, Plt Count 289, MPV 7.6, Neut % (Auto) 80.8 H, Lymph % (Auto) 13.8, [place] % (Auto) 5.2, Eos % (Auto) 0.0 L, Baso % (Auto) 0.2, Neut # (Auto) 8.8 H, Lymph # (Auto) 1.5, [place] # (Auto) 0.6, Eos # (Auto) 0.0, Baso # (Auto) 0.0, Sodium 148 H, Potassium 2.9 L*, Chloride 108 H, Carbon Dioxide 24, Anion Gap 18.9 H, BUN 22 H, Creatinine 0.70, Estimated Creat Clear 116, Estimated GFR 139, Est GFR ( Amer) 168, Glucose 168 H D, Calcium 9.1 I & O for Last 24 hours: Intake & Output 12/31/23 01/01/24 01/02/24 06/20/24 23:59 23:59 23:59 23:59 Intake Total 466 / 466 991 / 2091 1580 / 1680 460 / 460 Output Total 0 / 0 0 / 100 400 / 400 0 / 0 Balance 466 / 466 / 1990 1180 / 1280 460 / 460 Weight 50.434 kg 50.39 kg 49.986 kg 50.434 kg Constitutional Constitutional: no acute distress, thin, chronically ill appearing and cooperative *Routine HEENT Exam Head: Present normocephalic Eye: Present EOMI and PERRL ENT: Present mucous membranes moist *Routine Neck Exam Neck: Present supple; Absent lymphadenopathy *Routine Respiratory Exam Respiratory: Present CTA bilaterally; Absent rhonchi, wheezes or crackles *Routine Cardiovascular Exam Cardiovascular: Present RRR *Routine Abdominal Exam Abdominal: Present soft and normoactive bowel sounds; Absent tenderness or distended *Routine Rectal Exam Patient deferred: visual exam *Routine Exam Patient deferred: penile exam *Routine Extremities Exam Extremities: Absent cyanosis, clubbing or edema *Routine Skin Exam Skin: Present warm; Absent rash *Routine Neurological Exam Neurological: Present alert, oriented X3 and moving all extremities; Absent altered mental status Routine Psychiatric Exam Psychiatric: Present normal affect Results Data Completed and Pending Labs on day of discharge: Labs from last 24 hours 01/03/24 05:58 WBC 10.9 H RBC 4.85 Hgb 14.2 Hct 44.4 MCV 91.5 MCH 29.2 MCHC 32.0 RDW 13.4 Plt Count 289 MPV 7.6 Neut % (Auto) 80.8 H Lymph % (Auto) 13.8 [place] % (Auto) 5.2 Eos % (Auto) 0.0 L Baso % (Auto) 0.2 Neut # (Auto) 8.8 H Lymph # (Auto) 1.5 [place] # (Auto) 0.6 Eos # (Auto) 0.0 Baso # (Auto) 0.0 Sodium 148 H Potassium 2.9 L* Chloride 108 H Carbon Dioxide 24 Anion Gap 18.9 H BUN 22 H Creatinine 0.70 Estimated Creat Clear 116 Estimated GFR 139 Est GFR ( Amer) 168 Glucose 168 H D Calcium 9.1 DS: Diagnosis Discharge Diagnosis (1) Intractable nausea and vomiting: Status: Acute Code(s): R11.2 - Nausea with vomiting, unspecified (2) Colitis: Status: Acute Code(s): K52.9 - Noninfective gastroenteritis and colitis, unspecified (3) Dehydration, moderate: Status: Acute Code(s): E86.0 - Dehydration (4) Abdominal pain: Status: Acute Code(s): R10.9 - Unspecified abdominal pain Qualifiers: Abdominal location: unspecified location Qualified Code(s): R10.9 - Unspecified abdominal pain (5) Diabetic gastroparesis: Status: Acute Code(s): E11.43 - Type 2 diabetes mellitus with diabetic autonomic (poly)neuropathy; K31.84 - Gastroparesis (6) Diabetes mellitus type 1: Status: Acute Code(s): E10.9 - Type 1 diabetes mellitus without complications Qualifiers: Diabetes mellitus complication status: with other specified complication Qualified Code(s): E10.69 - Type 1 diabetes mellitus with other specified complication Meds Home Medications and Allergies Home Medications Medication Instructions Recorded Confirmed Type insulin glargine U-300 conc 300 30 unit (0.1 mL) SQ DAILY #3 mL 05/31/23 12/30/23 Rx unit/mL (3 mL) subcutaneous pen (Toujeo Max U-300 SoloStar) insulin lispro 200 unit/mL (3 mL) 20 unit (0.1 mL) SQ TID #12 mL 06/13/23 12/30/23 Rx subcutaneous pen (Humalog KwikPen U-200 Insulin) metoclopramide HCl 10 mg tablet 10 mg PO Q6H PRN nausea and 06/21/23 12/30/23 Rx (Reglan) vomiting 7 days #30 tabs pen needle, diabetic 32 gauge x #100 ea 09/18/23 Rx 1/4 (BD Ultra-Fine Micro Pen Needle) ondansetron 4 mg disintegrating 4 mg PO Q8H PRN nausea and 01/03/24 Rx tablet vomiting #15 tabs pantoprazole 40 mg tablet,delayed 40 mg PO DAILY #30 tabs 01/03/24 Rx release promethazine 25 mg tablet 25 mg PO TID PRN nausea and 01/03/24 Rx vomiting #30 tabs New Prescriptions to Start Prescriptions: ondansetron Harshil Schultz pantoprazole Harshil Schultz promethazine Harshil Schultz Allergies Allergy/AdvReac Type Severity Reaction Status Date / Time No Known Allergies Allergy Verified 06/13/23 08:09 Discharge Plan Disposition Patient Disposition: Home, Self-Care Condition: Fair Follow up Plan Follow up with: Gretchen Angelo APRN [Primary Care Provider] - 01/09/24 11:00 am Harshil Olmedo [Referring] - 01/10/24 11:00 am Prescriptions/Medication Reconciliation: New promethazine 25 mg tablet 25 mg PO TID PRN (Reason: nausea and vomiting) Qty: 30 0RF ondansetron 4 mg tablet,disintegrating 4 mg PO Q8H PRN (Reason: nausea and vomiting) Qty: 15 0RF pantoprazole 40 mg tablet,delayed release (DR/EC) 40 mg PO DAILY Qty: 30 0RF Continued Toujeo Max U-300 SoloStar 300 unit/mL (3 mL) insulin pen 30 unit SQ DAILY Qty: 3 5RF Humalog KwikPen Insulin 200 unit/mL (3 mL) insulin pen 20 unit SQ TID Qty: 12 3RF (DME) pen needle, diabetic [BD Ultra-Fine Micro Pen Needle] 32 gauge x 1/4 needle See Rx Instructions .Route Qty: 100 3RF Rx Instructions: As directed metoclopramide HCl [Reglan] 10 mg tablet 10 mg PO Q6H PRN (Reason: nausea and vomiting) 7 Days Qty: 30 0RF Discontinued omeprazole 40 mg capsule,delayed release(DR/EC) 40 mg PO DAILY Qty: 30 2RF Problem Reconciliation Problems Reviewed?: Yes Patient Discharge Instructions ACTIVITY: Continue current activity DIET: advance to your usual diet Patient Instructions: Low Glycemic Index Diets (Alternative Therapy), Carbohydrate-Counting Diet, DI for Nausea -- Adult, DI for Vomiting -- Adult, DI for Gastroparesis, DI for Colitis Providers Primary Care Provider: Gretchen Angelo Admit Provider: Gabrielle Golden Attending Provider: Gabrielle Golden
[2024-01-03 14:29] LABS: Chloride 108 mmol/L (98-107)
[2024-01-03 14:30] LABS: Sodium 147 mmol/L (136-145)
[2024-01-03 14:32] LABS: Blood Urea Nitrogen 19 mg/dl (9-20); Creatinine Clearance Estimated 116 mL/min (50-200); Estimated Glomerular Filt Rate 139 ml/min (>60); GFR (African American) 168 ML/MIN (>60)
[2024-01-03 14:33] LABS: Carbon Dioxide 21 mmol/L (22.0-30.0); Glucose 185 mg/dl (74-100)
[2024-01-03 15:37] VITALS: BP 127/71; PULSE 84; RESP 16; TEMP 36.9; O2SAT 98
--- NOTE | 2024-01-07 15:19 | CARE MANAGER ---
Contacted patient related to hospital stay. He states that he is doing much better and able to keep food down. He denies questions or concerns and is aware of follow up appointments. ADDIS Ward
== END 2024-01-03 16:29 | disposition home or self-care (01) ==
LOC: ER 22:37 → 2ND 22:48
PROVIDERS: Internal Medicine Adolescent Medicine; Nurse Practitioner Family; Admitting Provider Internal Medicine; Emergency Provider Student in an Organized Health Care Education/Training Program; PCP Nurse Practitioner; Visit Provider Internal Medicine
DX: E86.0 Dehydration (principal); E11.43 Type 2 diabetes mellitus with diabetic autonomic (poly)neuropathy; K31.84 Gastroparesis; Z79.4 Long term (current) use of insulin; Z79.899 Other long term (current) drug therapy; F17.210 Nicotine dependence, cigarettes, uncomplicated; E11.65 Type 2 diabetes mellitus with hyperglycemia; Z68.1 Body mass index [BMI] 19.9 or less, adult; F12.188 Cannabis abuse with other cannabis-induced disorder; R11.2 Nausea with vomiting, unspecified; K52.9 Noninfective gastroenteritis and colitis, unspecified; R64 Cachexia; Z91.199 Patient's noncompliance with other medical treatment and regimen due to unspecified reason
CPT/HCPCS: 36415; 74177; 80048; 80053; 80307; 80320; 80329; 81001; 82803; 82962; 83036; 83605; 83690; 83735; 84100; 84484; 85007; 85025; 87507; 99291; G0378; G0480; J1650; J2270; J2405; J2543; J2550; J2765; J3480; J7120; Q9967

== ENCOUNTER 2024-01-09 09:47 | Outpatient (CLI) | payer OTHER, SELFPAY ==
[2024-01-09 19:27] LABS: Basophils # 0.1 K/mm3 (0-0.2); Basophils % 0.8 % (0.1-2.0); Eosinophils # 0.1 K/mm3 (0.0-0.4); Eosinophils % 1.7 % (0.1-12.0); Hemoglobin 14.4 g/dL (14.1-18.0); Lymphocytes % 31.6 % (10-50); Mean Corpuscular HGB Conc 32.6 g/dL (31.8-35.4); Mean Corpuscular Hemoglobin 29.3 pg (27.0-31.2); Mean Corpuscular Volume 89.7 fl (80-94); Mean Platelet Volume 8.3 fl (7.4-10.4); Monocytes # 0.4 K/mm3 (0.1-1.0); Monocytes % 7.2 % (1.7-9.3); Neutrophils # 3.6 K/mm3 (1.8-7.8); Neutrophils % 58.7 % (37.0-80.0); Platelet Count 279 K/mm3 (142-424); Red Blood Count 4.91 M/mm3 (4.60-6.20); Red Cell Distribution Width 13.6 % (11.5-17.5); White Blood Count 6.2 K/mm3 (4.8-10.8)
[2024-01-09 19:50] LABS: Anion Gap 11.5 mEq/L (5-15); Blood Urea Nitrogen 20 mg/dl (9-20); Calcium 9.6 mg/dl (8.4-10.2); Carbon Dioxide 36 mmol/L (22.0-30.0); Chloride 100 mmol/L (98-107); Estimated Glomerular Filt Rate 104 ml/min (>60); GFR (African American) 125 ML/MIN (>60); Glucose 152 mg/dl (74-100); Potassium 3.5 mmoL/L (3.5-5.1); Sodium 144 mmol/L (136-145)
== END 2024-01-09 23:59 | disposition home or self-care (01) ==
LOC: LAB.DROPOF 01-10 09:48
PROVIDERS: PCP Nurse Practitioner; Visit Provider Nurse Practitioner
DX: E11.43 Type 2 diabetes mellitus with diabetic autonomic (poly)neuropathy (principal); K31.84 Gastroparesis
CPT/HCPCS: 80048; 85025

== ENCOUNTER 2024-03-11 14:52 | Inpatient (IN) | payer OTHER, SELFPAY ==
[2024-03-11] VITALS (15 sets, daily range): BP systolic 92–140; BP diastolic 62–91; PULSE 25–90; RESP 12–28; TEMP 36.7–37; O2SAT 94–99; BMI 17.2; BMI 16.1
--- NOTE | 2024-03-11 14:59 | PC.NURSE ---
DR OCHOA AT BEDSIDE
--- NOTE | 2024-03-11 15:04 | ECG_ITS ---
APPROVED REPORT Exam: Resting ECG HR:86 bpm ECG Measurements Heart Rate 86 AXES FL 156 P 81 QRSd 90 QRS 99 QT 364 T 75 QTc 408 Conclusion Sinus rhythm Right atrial enlargement Borderline right axis deviation Electronically signed by : ANIVAL OCHOA, 03/11/2024 21:26:51
--- NOTE | 2024-03-11 15:07 | PC.NURSE ---
called resp and notified them of vbg
--- NOTE | 2024-03-11 15:08 | HMH.EDGENADL ---
Discharge Plan Disposition Patient Disposition: Admitted Clinical Impressions Clinical Impression: Intractable vomiting with nausea, Abdominal pain Diabetic ketoacidosis Qualifiers: Diabetes mellitus type: type 1 Diabetes mellitus complication detail: without coma Qualified Code(s): E10.10 - Type 1 diabetes mellitus with ketoacidosis without coma Discharge ED Provider: Buck Baron General Adult HPI General Chief complaint: Abdominal Pain Stated complaint: weak vomiting Time Seen by Provider: 03/11/24 15:01 Mode of Arrival: Ambulatory Limitations: No Limitations Description of Symptoms (Recalled from ER Triage Doc. by RN): PT REPORTS N/V/D X 2-3 DAYS WITH BURNING ABDOMINAL PAIN. REPORTS WEAKNESS AND CHILLS. REPORTS GLUCOSE HAS BEEN HIGH History of Present Illness HPI narrative: Please note that above description of symptoms, in this electronic medical record under categorization of recalled from ER triage doctor by RN are reflective of an initial nursing assessment, however, is not reflective of my full history and physical exam that was personally taken and clarified. Consequentially, this preceding description of symptoms, which may include the patient's categorized chief complaint in the EMR, do not reflect my personal clinical impression, and the ultimate description of history of present illness and patient stated complaints should be deferred to this section of the note. Unless stated otherwise or congruent with this section of the note, additional signs, symptoms, or incongruence should be interpreted as inaccurate with my clinical impression. Related Data Previous Rx's ?Medication ?Instructions ?Recorded insulin glargine U-300 conc 300 30 unit (0.1 mL) SQ DAILY #3 mL 05/31/23 unit/mL (3 mL) subcutaneous pen (Toujeo Max U-300 SoloStar) insulin lispro 200 unit/mL (3 mL) 20 unit (0.1 mL) SQ TID #12 mL 06/13/23 subcutaneous pen (Humalog KwikPen U-200 Insulin) pen needle, diabetic 32 gauge x #100 ea 09/18/2307/19 (BD Ultra-Fine Micro Pen Needle) Allergies Allergy/AdvReac Type Severity Reaction Status Date / Time No Known Allergies Allergy Verified 01/09/24 11:29 [facility] Disclaimer: The information contained in this section may have been updated after the patient was seen, as this information can be updated by other users. Medical History Diabetes mellitus type 1 Hyperthyroidism Family History Other Cancer Diabetes Hypertension Social History (Updated 03/11/24 @ 16:23 by Jennifer Gillespie RN) Smoking Status: Current every day smoker alcohol intake: never current occupational status: unemployed Travel in the last 8 weeks: None ROS Obtained: Yes All systems reviewed & no additional complaints except as documented Physical Exam General General appearance: alert Comment: Thin, chronically ill Head Head exam: atraumatic and normocephalic Eye Eye exam: Present normal appearance, PERRL and EOMI Neck Neck exam: Present normal inspection, full ROM and trachea midline Chest Chest inspection: Present normal inspection Respiratory Respiratory exam: Present normal lung sounds bilaterally; Absent respiratory distress, wheezes, stridor, accessory muscle use or prolonged expiratory phase Cardiovascular Cardiovascular exam: Present regular rate, normal rhythm and other (Pulses equal symmetric in upper and lower extremities) Abdominal Exam Abdominal exam: Present soft and tenderness; Absent distention, guarding, rebound or pulsatile mass Abdominal tenderness: Present diffuse and mild Extremities Exam Extremities exam: Absent edema Neurological Exam Neurological exam: Present alert, oriented X3 and CN II-XII intact; Absent motor sensory deficit Skin Skin exam: Present warm and dry; Absent diaphoresis or erythema Medical Decision Making Medical Records Medical records reviewed: Yes I reviewed the patient's medical records. Lui Inquiry Pt receiving controlled substance: No Lui was queried for this patient: No Vital Signs: 03/11/24 14:53 03/11/24 14:58 03/11/24 15:00 Temperature 98.4 F Temperature Source Oral Pulse Rate 25 L 89 Pulse Rate [Apical] 85 Respiratory Rate 18 Blood Pressure 140/91 H 129/87 Blood Pressure [Left Arm] 140/91 H Blood Pressure Mean [Left Arm] 107 Blood Pressure Source [Left Arm] Automatic Cuff Blood Pressure Position [Left Arm] Sitting 02 Sat by Pulse Oximetry 98 97 99 Oxygen Delivery Method Room Air 03/11/24 15:30 Temperature Temperature Source Pulse Rate 58 L Pulse Rate [Apical] Respiratory Rate Blood Pressure 125/86 Blood Pressure [Left Arm] Blood Pressure Mean [Left Arm] Blood Pressure Source [Left Arm] Blood Pressure Position [Left Arm] 02 Sat by Pulse Oximetry 95 Oxygen Delivery Method Room Air Lab Data Lab Results 03/11/24 14:56: VBG pH 7.37, VBG pCO2 41.0, VBG pO2 40.3 H, VBG HCO3 23.2, VBG Total CO2 24.4, VBG O2 Saturation 75.1 H, VBG Base Excess -2.1, VBG Lactic Acid 3.0 H 03/11/24 15:08: WBC 16.9 H, RBC 5.68, Hgb 16.8, Hct 52.8 H, MCV 92.9, MCH 29.5, MCHC 31.8, RDW 13.9, Plt Count 380, MPV 7.6, Neut % (Auto) 84.6 H, Lymph % (Auto) 8.6 L, [place] % (Auto) 6.3, Eos % (Auto) 0.1, Baso % (Auto) 0.4, Neut # (Auto) 14.3 H, Lymph # (Auto) 1.5, [place] # (Auto) 1.1 H, Eos # (Auto) 0.0, Baso # (Auto) 0.1, Total Counted 100, Neutrophils % (Manual) 84 H, Lymphocytes % (Manual) 9 L, Monocytes % (Manual) 7, Platelet Estimate Normal, RBC Morphology Normal, Sodium 144, Potassium 4.2, Chloride 98, Carbon Dioxide 24, Anion Gap 26.2 H, BUN 37 H, Creatinine 1.20, Estimated Creat Clear 67, Estimated GFR 74, Est GFR ( Amer) 90, Glucose 414 H*, Hemoglobin A1c 9.8 H D, Lactate 2.0, Calcium 10.0, Magnesium 2.7 H, Total Bilirubin 1.1, AST 34, ALT 29, Alkaline Phosphatase 116, Troponin I < 0.01, Total Protein 8.8 H D, Albumin 5.5 H, Globulin 3.3 H, Albumin/Globulin Ratio 1.7, Lipase 34, Acetone Level Moderate 03/11/24 15:08 03/11/24 15:08 Orders (Tests/Meds): ED MEDICATIONS Generic Name Dose Route Start Last Admin Trade Name Freq PRN Reason Stop Dose Admin Dextrose 50 ml 03/11/24 15:40 Dextrose 50% 50ml Syringe (Crash Cart) IVP 04/10/24 15:39 NEEDED PRN Per DKA Protocol Insulin Human Regular 100 unit 101 mls @ 5.05 mls/hr 03/11/24 15:45 03/11/24 16:11 / Sodium Chloride IV 04/10/24 15:44 5 unit/hr .Q20H MARCELO 5.05 mls/hr Administration Protocol 5 UNIT/HR Dextrose/Sodium Chloride 1,000 mls @ 75 mls/hr 03/11/24 15:45 Dextrose 5%-0.9% Nacl Iv Soln IV 04/10/24 15:44 .[id number] MARCELO Dextrose/Sodium Chloride 1,000 mls @ 125 mls/hr 03/11/24 15:45 Dextrose 5%-0.9% Nacl Iv Soln IV 04/10/24 15:44 .Q8H MARCELO Potassium Chloride/Sodium Chloride 1,000 mls @ 100 mls/hr 03/11/24 15:45 Kcl 40 Meq-Ns 1,000ml Iv Soln IV 04/10/24 15:44 .Q10H MARCELO Sodium Chloride 1,000 mls @ 150 mls/hr 03/11/24 16:15 Sod Chlor 0.9% 1000ml Bag IV 04/10/24 16:14 .Q6H40M MARCELO Insulin Glargine 15 unit 03/11/24 21:00 Insulin Glargine 100 Units/Ml 3ml Flexpen SQ 04/10/24 20:59 HS MARCELO Metoclopramide HCl 10 mg 03/11/24 16:30 Metoclopramide Hcl 10mg/2ml Vial IVP 04/10/24 16:29 ACHS MARCELO Pantoprazole Sodium 40 mg 03/11/24 21:00 Pantoprazole 40mg Vial IV 04/10/24 20:59 HS MARCELO Sodium Chloride 10 ml 03/11/24 16:16 Sodium Chloride 0.9% 10ml Flush Syringe IV 04/10/24 16:15 NEEDED PRN Maintain IV Site Sodium Chloride 10 ml 03/11/24 16:16 Sodium Chloride 0.9% 10ml Vial IV 04/10/24 16:15 NEEDED PRN Reconstitute Medications Discontinued Medications Generic Name Dose Route Start Last Admin Trade Name Freq PRN Reason Stop Dose Admin Lactated Ringer's 1,000 mls @ 999 mls/hr 03/11/24 14:55 03/11/24 15:12 Lactated Ringer's 1000 Ml Bag IV 03/11/24 15:55 999 mls/hr .Q1H1M ONE Administration Ketorolac Tromethamine 15 mg 03/11/24 15:25 03/11/24 15:42 Ketorolac 30mg/Ml Vial IV 03/11/24 15:26 15 mg ONCE ONE Administration Morphine Sulfate 4 mg 03/11/24 15:25 03/11/24 15:44 Morphine 4mg/Ml Syringe IV 03/11/24 15:26 4 mg ONCE ONE Administration Ondansetron HCl 4 mg 03/11/24 15:11 03/11/24 15:14 Ondansetron 4mg/2ml Vial IV 03/11/24 15:12 4 mg ONCE ONE Administration ORDERS Category Date Time Status Acetone, Serum (Rapid) Stat Lab 03/11/24 15:08 Completed Basic Metabolic Panel Q4H Lab 03/11/24 16:15 Ordered Basic Metabolic Panel Q4H Lab 03/11/24 20:15 Ordered Basic Metabolic Panel Q4H Lab 03/12/24 00:15 Ordered Basic Metabolic Panel Q4H Lab 03/12/24 04:15 Ordered Complete Blood Count Auto Diff AMLAB Lab 03/12/24 06:00 Ordered Complete Blood Count Auto Diff Stat Lab 03/11/24 15:08 Completed Comprehensive Metabolic Panel AMLAB Lab 03/12/24 06:00 Ordered Comprehensive Metabolic Panel Stat Lab 03/11/24 15:08 Completed Hemoglobin A1C Stat Lab 03/11/24 15:08 Completed Lactic Acid Stat Lab 03/11/24 15:08 Completed Lipase Stat Lab 03/11/24 15:08 Completed Magnesium AMLAB Lab 03/12/24 06:00 Ordered Magnesium Stat Lab 03/11/24 15:08 Completed Trop I [Troponin I] Stat Lab 03/11/24 15:08 Completed Troponin I Q3H Lab 03/11/24 18:15 Ordered Troponin I Q3H Lab 03/11/24 21:15 Ordered UA [Urinalysis and Microscopic] Stat Lab 03/11/24 14:55 Ordered Blood Culture Stat Micro 03/11/24 15:06 Received Venous Blood Gas Stat RT 03/11/24 14:56 Completed Medical Decision Narrative: 23-year-old male with history of type 1 diabetes presenting with tractable nausea and vomiting, abdominal pain. Patient states that he started vomiting and having high glucose readings 2 days prior to this. Abdominal pain is diffuse but primarily epigastric, does not radiate, mild to moderate, and feels like a cramping/pressure. Patient states it feels like his typical gastroparesis pain, although it is a little worse than usual. States that he is having mild chest pain due to the pressure from his abdomen. No objective fevers, diarrhea, blood in his vomit, bile in his vomit, recent sick contacts, recent travel, or any other relevant history. Has been trying to fix his sugars at home with a sliding scale insulin, has been unable to do so for about 3 days, so came in for further evaluation at this point. History was obtained via conversation with patient. On arrival, patient hemodynamically stable, alert, oriented x4, appropriate, GCS 15, moving all extremities spontaneously, pupils equal and reactive to light. Full physical exam performed and significant for uncomfortable appearing male who is in no acute distress. He is holding his abdomen in his epigastrium. Abdomen is diffusely tender, primarily in epigastrium. Cardiac exam normal with no murmurs gallops rubs, lungs are clear to auscultation bilaterally anterior and posterior. Patient is not tachycardic, not tachypneic. Bedside [id number] glucose 420. Differential includes DKA, PUD, gastritis, enteritis, gastroenteritis, pancreatitis, SBO, colitis, diverticulitis, nephrolithiasis, UTI, cholecystitis, choledocholithiasis, appendicitis, torsion, hepatitis, aortic pathology, mesenteric ischemia among others. Patient placed on continuous cardiac monitoring and continuous pulse ox with initial blood pressure 140/91, heart rate 85, saturation 98% on room air. Independent interpretation of EKG shows sinus rhythm 86 beats a minute with no acute ischemic change. CT 156, QRS 90, QTc 408. Patient's R wave progression in precordial leads is poor. Normal axis. Patient was given LR, Zofran, Toradol, morphine for symptomatic management and correction of underlying abnormalities. Workup independently interpreted and significant for leukocytosis 16.7 with neutrophilia. VBG not acidotic, but lactate is 3.0. Chemistry with concern for anion gap 26.2, glucose 414. Patient's acetone also elevated. Unable to produce urinalysis by time of admission. Hospital medicine was contacted and case was discussed at length after discussion with patient. Likely related to patient's gastroparesis versus other underlying etiology. Patient unable to tolerate any p.o. intake, but on reevaluation he is feeling much better and resting comfortably. Patient was started on potassium containing fluids, insulin drip. Ultimately, patient to be admitted to hospital medicine for further definitive management. [employer]er disclaimer Much of this encounter note is an electronic telegraph service clerk spoken language to printed text. Electronic telegraph service clerk of the spoken language may permit errors. Although I have reviewed the note, some errors may still exist. Critical Care Critical Care Time Critical Care Time: Yes (endo) Attestation: On 03/11/24, the high probability of a clinically significant, sudden or life threatening deterioration of the following system(s) required my full and direct attention, intervention and personal management. The time I documented below is in addition to time spent performing reported procedures but includes the following listed in this critical care notation. Total Time Total Critical Care Time: 45
[2024-03-11] MEDS: LACTATED RINGERS 1000ML 1,000 ML 999 ML IV (15:12)
[2024-03-11] MEDS: ONDANSETRON 4MG/2ML VIAL 4 MG IV ×2 (15:14→20:07)
[2024-03-11 15:17] LABS: Basophils # 0.1 K/mm3 (0-0.2); Basophils % 0.4 % (0.1-2.0); Eosinophils % 0.1 % (0.1-12.0); Hematocrit 52.8 % (42.0-52.0); Hemoglobin 16.8 g/dL (14.1-18.0); Lymphocytes # 1.5 K/mm3 (0.7-4.5); Lymphocytes % 8.6 % (10-50); Mean Corpuscular HGB Conc 31.8 g/dL (31.8-35.4); Mean Corpuscular Hemoglobin 29.5 pg (27.0-31.2); Mean Corpuscular Volume 92.9 fl (80-94); Mean Platelet Volume 7.6 fl (7.4-10.4); Monocytes # 1.1 K/mm3 (0.1-1.0); Monocytes % 6.3 % (1.7-9.3); Neutrophils # 14.3 K/mm3 (1.8-7.8); Neutrophils % 84.6 % (37.0-80.0); Platelet Count 380 K/mm3 (142-424); Red Blood Count 5.68 M/mm3 (4.60-6.20); Red Cell Distribution Width 13.9 % (11.5-17.5); White Blood Count 16.9 K/mm3 (4.8-10.8)
[2024-03-11 15:18] LABS: VBG Base Excess -2.1 mmol/L (-2.4-2.3); VBG HCO3 23.2 mmol/L (23-30); VBG Oxygen Saturation 75.1 % (50-70); VBG PH 7.37 mmol/L (7.31-7.41); VBG PO2 40.3 mmol/L (28-40); VBG Total CO2 24.4 mmol/L (23-27)
[2024-03-11 15:25] LABS: Albumin Level 5.5 g/dl (3.5-5.0); Chloride 98 mmol/L (98-107); Sodium 144 mmol/L (136-145)
[2024-03-11 15:26] LABS: Potassium 4.2 mmoL/L (3.5-5.1)
[2024-03-11 15:28] LABS: Alanine Aminotransferase 29 U/L (12-78); Albumin/Globulin Ratio 1.7 (1.1-1.8); Alkaline Phosphatase 116 U/L (38-126); Anion Gap 26.2 mEq/L (5-15); Aspartate Amino Transferase 34 U/L (17-59); Bilirubin,Total 1.1 mg/dl (0.2-1.3); Blood Urea Nitrogen 37 mg/dl (9-20); Carbon Dioxide 24 mmol/L (22.0-30.0); Creatinine Clearance Estimated 67 mL/min (50-200); Estimated Glomerular Filt Rate 74 ml/min (>60); GFR (African American) 90 ML/MIN (>60); Globulin 3.3 g/dL (1.3-3.2); Total Protein,Serum 8.8 g/dl (6.3-8.2)
[2024-03-11 15:29] LABS: Lipase 34 U/L (23-300); Magnesium 2.7 mg/dl (1.6-2.3)
[2024-03-11 15:30] LABS: Glucose 414 mg/dl (74-100)
[2024-03-11 15:33] LABS: MANUAL DIFFERENTIAL MANUAL DIFFERENTIAL (MANUAL DIFF)
[2024-03-11] MEDS: KETOROLAC 30MG/ML VIAL 15 MG IV (15:42)
[2024-03-11] MEDS: MORPHINE 4MG/ML SYRINGE 4 MG IV (15:44)
[2024-03-11 15:45] LABS: Troponin I < 0.01 ng/ml (0.00-0.034)
[2024-03-11 15:55] LABS: Acetone, Serum (Rapid) Moderate (None Detect)
--- NOTE | 2024-03-11 16:06 | PC.NURSE ---
BOX COVERER HAND NOTIFIED OF ADMISSION
--- NOTE | 2024-03-11 16:10 | PC.NURSE ---
2nd IV placement in pts Left forearm. 20g. CR
[2024-03-11] MEDS: INSULIN REGULAR, HUMAN 100 UNIT in 0.9 % SODIUM CHLORIDE 100 ML 5.05 UNIT IV (16:11)
--- NOTE | 2024-03-11 16:14 | HMH.PHAINT1 ---
Pharmacy Intervention Comments: MEDICATION RECONCILIATION COMPLETED ON PATIENT USING EXTERNAL FILL HISTORY FORM PHARMACY AND DISCHARGE SUMMARY FROM PREVIOUS ADMISSION. -GARETT RAYD
--- NOTE | 2024-03-11 16:15 | PC.NURSE ---
DKA POLICY DISCUSSED WITH DR OCHOA, DOES NOT WANT 2ND LITER NS BOLUS
[2024-03-11 16:20] LABS: Lymphocytes % 9 % (10-50); Monocytes % 7 % (2-9); Neutrophils % 84 % (42-76); Total Cells Counted 100
[2024-03-11 16:21] LABS: Platelet Estimate Normal; RBC Morphology Normal
[2024-03-11 16:28] LABS: Hemoglobin A1C 9.8 % (4.0-6.0)
--- NOTE | 2024-03-11 17:11 | PC.NURSE ---
arrived by wheelchair from ed.
[2024-03-11] MEDS: 0.9 % SODIUM CHLORIDE 1000ML 1,000 ML 150 ML IV (17:36)
[2024-03-11] MEDS: METOCLOPRAMIDE HCL 10MG/2ML VIAL 10 MG IVP ×2 (17:41→21:41)
[2024-03-11 18:01] LABS: Chloride 103 mmol/L (98-107); Potassium 3.9 mmoL/L (3.5-5.1); Sodium 143 mmol/L (136-145)
[2024-03-11 18:04] LABS: Anion Gap 19.9 mEq/L (5-15); Blood Urea Nitrogen 35 mg/dl (9-20); Calcium 9.3 mg/dl (8.4-10.2); Carbon Dioxide 24 mmol/L (22.0-30.0); Creatinine Clearance Estimated 75 mL/min (50-200); Estimated Glomerular Filt Rate 92 ml/min (>60); GFR (African American) 111 ML/MIN (>60); Glucose 368 mg/dl (74-100)
--- NOTE | 2024-03-11 18:14 | EXP.HP ---
History of Present Illness *Admission Date: 03/11/24 *Reason for visit:: Nausea and vomiting *History of present illness: 23-year-old male with history of type 1 diabetes presenting with tractable nausea and vomiting, abdominal pain. Patient states that he started vomiting and having high glucose readings approximately 3 days ago. Pain began in his abdomen prior to the emesis. Denies any blood in his emesis. Was checking his blood sugar and found to be HI on his monitor. Administering short acting insulin but not seeing any improvement. States has been taking his basal insulin nightly with last dose administered last night. Denies any fever, chest pain, shortness of breath. Last bowel movement was yesterday. Workup in the ER concerning for DKA versus intractable nausea and vomiting from his gastroparesis. Initiated on IV fluids. Medicine was consulted for treatment of DKA. On arrival to the floor, patient is alert and able to answer questions but appears quite ill and fatigued. On room air. Remains tachycardic. [facility] Disclaimer: The information contained in this section may have been updated after the patient was seen, as this information can be updated by other users. Medical History Diabetes mellitus type 1 Hyperthyroidism Family History Diabetes Cancer Hypertension Social History Smoking Status: Current every day smoker alcohol intake: never current occupational status: unemployed Travel in the last 8 weeks: None Review of Systems Review of Systems Review of systems (narrative): 14 point review of systems performed, pertinent positives and negatives as per HPI Meds Home Medications and Allergies Home Medications ?Medication ?Instructions ?Recorded ?Confirmed ?Type insulin glargine U-300 conc 300 30 unit (0.1 mL) SQ DAILY #3 mL 05/31/23 03/11/24 Rx unit/mL (3 mL) subcutaneous pen (Toujeo Max U-300 SoloStar) insulin lispro 200 unit/mL (3 mL) 20 unit (0.1 mL) SQ TID #12 mL 06/13/23 03/11/24 Rx subcutaneous pen (Humalog KwikPen U-200 Insulin) pen needle, diabetic 32 gauge x #100 ea 09/18/23 03/11/24 Rx 1/4 (BD Ultra-Fine Micro Pen Needle) New Prescriptions to Start Prescriptions: Allergies Allergy/AdvReac Type Severity Reaction Status Date / Time No Known Allergies Allergy Verified 01/09/24 11:29 Exam Data for Last 24 hours Vital signs and Labs for Last 24 Hours: Temp Pulse Resp BP Pulse Ox O2 Del Method 98.6 F 56 L 18 111/64 95 Room Air 03/11/24 17:35 03/11/24 18:00 03/11/24 18:00 03/11/24 18:00 03/11/24 18:00 03/11/24 18:00 Laboratory Results - last 24 hr 03/11/24 14:56: VBG pH 7.37, VBG pCO2 41.0, VBG pO2 40.3 H, VBG HCO3 23.2, VBG Total CO2 24.4, VBG O2 Saturation 75.1 H, VBG Base Excess -2.1, VBG Lactic Acid 3.0 H 03/11/24 15:08: WBC 16.9 H, RBC 5.68, Hgb 16.8, Hct 52.8 H, MCV 92.9, MCH 29.5, MCHC 31.8, RDW 13.9, Plt Count 380, MPV 7.6, Neut % (Auto) 84.6 H, Lymph % (Auto) 8.6 L, [place] % (Auto) 6.3, Eos % (Auto) 0.1, Baso % (Auto) 0.4, Neut # (Auto) 14.3 H, Lymph # (Auto) 1.5, [place] # (Auto) 1.1 H, Eos # (Auto) 0.0, Baso # (Auto) 0.1, Total Counted 100, Neutrophils % (Manual) 84 H, Lymphocytes % (Manual) 9 L, Monocytes % (Manual) 7, Platelet Estimate Normal, RBC Morphology Normal, Sodium 144, Potassium 4.2, Chloride 98, Carbon Dioxide 24, Anion Gap 26.2 H, BUN 37 H, Creatinine 1.20, Estimated Creat Clear 67, Estimated GFR 74, Est GFR ( Amer) 90, Glucose 414 H*, Hemoglobin A1c 9.8 H D, Lactate 2.0, Calcium 10.0, Magnesium 2.7 H, Total Bilirubin 1.1, AST 34, ALT 29, Alkaline Phosphatase 116, Troponin I < 0.01, Total Protein 8.8 H D, Albumin 5.5 H, Globulin 3.3 H, Albumin/Globulin Ratio 1.7, Lipase 34, Acetone Level Moderate I & O for Last 24 hours: Intake & Output 03/08/24 03/09/24 03/10/24 03/11/24 23:59 23:59 23:59 23:59 Intake Total Balance Weight 46.748 kg Constitutional Constitutional: moderate distress, cachectic and chronically ill appearing *Routine HEENT Exam Head: Present normocephalic Eye: Present EOMI and PERRL ENT: Present mucous membranes moist *Routine Neck Exam Neck: Present supple; Absent lymphadenopathy *Routine Respiratory Exam Respiratory: Present CTA bilaterally *Routine Cardiovascular Exam Cardiovascular: Present RRR *Routine Abdominal Exam Abdominal: Present soft, normoactive bowel sounds, tenderness and guarding *Routine Rectal Exam Rectal:: deferred *Routine Genitalia Exam Genitalia:: deferred *Routine Extremities Exam Extremities: Absent cyanosis, clubbing or edema *Routine Skin Exam Skin: Present warm; Absent rash *Routine Neurological Exam Neurological: Present alert and oriented X3 Assessment and Plan *Assessment and plan (1) Diabetic ketoacidosis: Status: Acute Qualifiers: Diabetes mellitus complication detail: without coma Diabetes mellitus type: type 1 Qualified Code(s): E10.10 - Type 1 diabetes mellitus with ketoacidosis without coma Category: Medical Code(s): E11.10 - Type 2 diabetes mellitus with ketoacidosis without coma (2) High anion gap metabolic acidosis: Status: Acute Category: Medical Code(s): E87.29 - Other acidosis (3) Intractable nausea and vomiting: Status: Acute Category: Medical Code(s): R11.2 - Nausea with vomiting, unspecified (4) Dehydration, moderate: Status: Resolved Category: Medical Code(s): E86.0 - Dehydration (5) Abdominal pain: Status: Acute Qualifiers: Abdominal location: unspecified location Qualified Code(s): R10.9 - Unspecified abdominal pain Category: Medical Code(s): R10.9 - Unspecified abdominal pain (6) Diabetic gastroparesis: Status: Acute Category: Medical Code(s): E11.43 - Type 2 diabetes mellitus with diabetic autonomic (poly)neuropathy; K31.84 - Gastroparesis (7) Diabetes mellitus type 1: Status: Acute Qualifiers: Diabetes mellitus complication status: with other specified complication Qualified Code(s): E10.69 - Type 1 diabetes mellitus with other specified complication Category: Medical Code(s): E10.9 - Type 1 diabetes mellitus without complications Plan 23-year-old male with PMHX insulin-dependent diabetic, medically non compliant, hyperthyroidism, and diabetic gastroparesis. Presented today with nausea, vomiting and abdominal discomfort. Upon arrival, patient found to be in DKA. Discussed case with ER physician, request admission for insulin drip and DKA protocol. Medicine agreed to admit for further management. Initiated on insulin drip. Admitted to stepdown for further monitoring and treatment. Problems addressed as follows: Diabetic ketoacidosis Intractable nausea and vomiting likely secondary to high anion gap metabolic acidosis Diabetic gastroparesis -Initiated on DKA protocol. Monitoring labs every 4 hours with BMP. Initial labs show anion gap Of 26, bicarb 24, glucose 414, magnesium 2.7 -Initiate fluids per protocol, initially on normal saline. -Insulin drip started at 4 units/h - Continue pantoprazole 40 mg nightly -Continue Reglan 10 mg IV ACHS for nausea -White count elevated at 16.9, likely reactive. Monitor for any antibiotic needs. Cultures pending. -I have ordered CBC, CMP, magnesium for the morning. -Slight kidney injury up from patient's baseline with BUN 35, creatinine 1. Type 1 diabetes: Noncompliant -A1c pending, most recent A1c controlled at 7.3 two months ago. Initiate insulin glargine with 15 units tonight. Continue insulin drip. Monitor for closure of gap. -Fingersticks as needed, BMP every 4 hours lovenox for DVT prophylaxis Full code Clear liquid diet
[2024-03-11 18:18] LABS: Troponin I < 0.01 ng/ml (0.00-0.034)
[2024-03-11 18:19] LABS: Phosphorous 3.3 mg/dl (2.5-4.5)
[2024-03-11 18:40] LABS: POC Glucose,Bedside 306 (70-110)
[2024-03-11 19:21] LABS: Reflex Lactic Add Lactic Reflex
[2024-03-11 19:37] LABS: Microscopic, Urine URINE MICROSCOPIC (MICROSCOPIC)
[2024-03-11 19:40] LABS: Appearance,Urine CLEAR (Clear); Blood, Urine TRACE-I (Negative); Color,Urine YELLOW (Yellow); Glucose,Urine (UA) 2+ (Negative); Ketones,Urine 2+ (Negative); Leukocyte Esterase,Urine Negative (Negative); Nitrate,Urine Negative (Negative); Protein,Urine Negative (Negative); Specific Gravity, Urine 1.025 (1.005-1.030); Urobilinogen,Urine 0.2 EU/dl (0.2)
[2024-03-11 19:49] LABS: Bilirubin,Urine Negative (Negative)
[2024-03-11 19:50] LABS: Bacteria,Urine Trace /lpf; Mucus,Urine Trace /lpf; RBC,Urine Occasional #/hpf (0-3); WBC,Urine Occasional #/hpf (0-3)
[2024-03-11 19:53] LABS: POC Glucose,Bedside 217 (70-110)
[2024-03-11 20:03] LABS: Lactic Acid Follow Up (RFLX 1) 1.2 mmol/L (0.7-2.1)
[2024-03-11] MEDS: Dextrose 5 % and 0.9 % NaCl 1,000 ML 75 ML IV (20:12)
[2024-03-11] MEDS: D5W/0.9% NaCl w/20mEq KCL 1,000 ML 75 ML IV (20:41)
[2024-03-11 21:08] LABS: Blood Urea Nitrogen 35 mg/dl (9-20); Calcium 9.5 mg/dl (8.4-10.2); Carbon Dioxide 29 mmol/L (22.0-30.0); Chloride 108 mmol/L (98-107); Creatinine Clearance Estimated 75 mL/min (50-200); Estimated Glomerular Filt Rate 92 ml/min (>60); GFR (African American) 111 ML/MIN (>60); Glucose 144 mg/dl (74-100); Sodium 147 mmol/L (136-145)
[2024-03-11] MEDS: PANTOPRAZOLE 40MG VIAL 40 MG IV (21:40)
[2024-03-11] MEDS: INSULIN GLARGINE 100 UNITS/ML 3ML FLEXPEN 15 UNIT SQ (21:41)
[2024-03-11 22:04] LABS: Troponin I < 0.01 ng/ml (0.00-0.034)
[2024-03-11 23:17] LABS: POC Glucose,Bedside 143 (70-110)
[2024-03-11 23:17] LABS: POC Glucose,Bedside 149 (70-110)
[2024-03-11 23:17] LABS: POC Glucose,Bedside 143 (70-110)
[2024-03-11 23:17] LABS: POC Glucose,Bedside 128 (70-110)
[2024-03-12] VITALS (12 sets, daily range): BP systolic 104–136; BP diastolic 60–86; PULSE 45–94; RESP 15–30; TEMP 36.4–37.1; O2SAT 93–100; BMI 16.2
[2024-03-12 00:28] LABS: Anion Gap 10.1 mEq/L (5-15); Blood Urea Nitrogen 30 mg/dl (9-20); Calcium 9.3 mg/dl (8.4-10.2); Carbon Dioxide 30 mmol/L (22.0-30.0); Chloride 111 mmol/L (98-107); Creatinine Clearance Estimated 75 mL/min (50-200); Estimated Glomerular Filt Rate 92 ml/min (>60); GFR (African American) 111 ML/MIN (>60); Glucose 149 mg/dl (74-100); Potassium 4.1 mmoL/L (3.5-5.1); Sodium 147 mmol/L (136-145)
[2024-03-12] MEDS: ONDANSETRON 4MG/2ML VIAL 4 MG IV ×2 (04:08→20:48)
[2024-03-12 05:12] LABS: Basophils # 0.1 K/mm3 (0-0.2); Basophils % 0.4 % (0.1-2.0); Eosinophils # 0.1 K/mm3 (0.0-0.4); Eosinophils % 0.4 % (0.1-12.0); Lymphocytes # 1.8 K/mm3 (0.7-4.5); Lymphocytes % 12.3 % (10-50); Mean Corpuscular HGB Conc 32.1 g/dL (31.8-35.4); Mean Corpuscular Hemoglobin 29.9 pg (27.0-31.2); Mean Corpuscular Volume 93.2 fl (80-94); Mean Platelet Volume 7.8 fl (7.4-10.4); Monocytes % 7.1 % (1.7-9.3); Neutrophils # 11.5 K/mm3 (1.8-7.8); Neutrophils % 79.8 % (37.0-80.0); Platelet Count 449 K/mm3 (142-424); Red Blood Count 4.83 M/mm3 (4.60-6.20); Red Cell Distribution Width 13.7 % (11.5-17.5); White Blood Count 14.4 K/mm3 (4.8-10.8)
[2024-03-12 05:15] LABS: Hemoglobin 14.5 g/dL (14.1-18.0)
[2024-03-12 05:16] LABS: POC Glucose,Bedside 196 (70-110)
[2024-03-12 05:16] LABS: POC Glucose,Bedside 129 (70-110)
[2024-03-12 05:16] LABS: POC Glucose,Bedside 138 (70-110)
[2024-03-12 05:17] LABS: Albumin Level 4.3 g/dl (3.5-5.0); Chloride 111 mmol/L (98-107); Sodium 148 mmol/L (136-145)
[2024-03-12 05:20] LABS: Alanine Aminotransferase 27 U/L (12-78); Albumin/Globulin Ratio 1.7 (1.1-1.8); Alkaline Phosphatase 66 U/L (38-126); Aspartate Amino Transferase 32 U/L (17-59); Bilirubin,Total 0.9 mg/dl (0.2-1.3); Blood Urea Nitrogen 33 mg/dl (9-20); Calcium 8.9 mg/dl (8.4-10.2); Carbon Dioxide 30 mmol/L (22.0-30.0); Creatinine Clearance Estimated 69 mL/min (50-200); Estimated Glomerular Filt Rate 82 ml/min (>60); GFR (African American) 100 ML/MIN (>60); Globulin 2.6 g/dL (1.3-3.2); Glucose 183 mg/dl (74-100); Magnesium 2.5 mg/dl (1.6-2.3); Phosphorous 2.6 mg/dl (2.5-4.5); Total Protein,Serum 6.9 g/dl (6.3-8.2)
[2024-03-12] MEDS: humaLOG 100 UNITS/ML 10ML VIAL (SSI) SQ ×4 (06:16→20:47)
[2024-03-12 06:21] LABS: POC Glucose,Bedside 190 (70-110)
[2024-03-12] MEDS: METOCLOPRAMIDE HCL 10MG/2ML VIAL 10 MG IVP ×4 (07:23→20:48)
--- NOTE | 2024-03-12 14:06 | EXP.ACUTE.PN ---
Subjective *Date: 03/12/24 *Time: 14:09 Interval history: Feeling somewhat better today. No emesis, does have some nausea. More alert and oriented today. Gap closed overnight. Tolerating p.o. liquids. Will advance to full liquids today. Stable on room air Medical Exam Vital signs and Labs for Last 24 Hours: Vital Signs Temp Pulse Pulse Resp BP BP Pulse Ox 03/12/24 12:00 97.5 F L 54 L 17 136/79 100 03/12/24 11:00 03/12/24 09:00 03/12/24 08:00 98.3 F 03/12/24 08:00 70 03/12/24 08:00 94 H 20 105/62 L 95 03/12/24 08:00 03/12/24 07:00 45 L 30 H 113/72 93 L 03/12/24 07:00 03/12/24 06:00 59 L 24 104/60 L 95 03/12/24 05:00 98.7 F 59 L 17 114/62 95 03/12/24 04:00 50 L 03/12/24 04:00 98.3 F 56 L 15 126/73 95 03/12/24 03:00 54 L 18 113/68 93 L 03/12/24 02:00 54 L 19 121/76 94 L 03/12/24 01:00 67 17 105/65 L 94 L 03/12/24 00:00 60 03/12/24 00:00 97.9 F 61 18 113/65 94 L 03/11/24 23:00 03/11/24 23:00 79 12 119/73 96 03/11/24 22:00 57 L 24 123/81 95 03/11/24 21:00 68 28 H 108/66 L 94 L 03/11/24 20:00 90 03/11/24 20:00 03/11/24 20:00 98.1 F 85 25 H 131/79 98 03/11/24 19:00 58 L 22 94/62 L 95 03/11/24 18:36 03/11/24 18:00 56 L 18 111/64 95 03/11/24 17:53 48 L 03/11/24 17:35 98.6 F 52 L 14 136/75 97 03/11/24 17:34 03/11/24 17:04 98.4 F 54 L 20 92/69 L 03/11/24 17:00 54 L 92/69 L 94 L 03/11/24 16:30 61 100/63 L 94 L 03/11/24 15:30 58 L 125/86 95 03/11/24 15:00 89 129/87 99 03/11/24 14:58 25 L 140/91 H 97 03/11/24 14:53 98.4 F 85 18 140/91 H 98 O2 Del Method 03/12/24 12:00 Room Air 03/12/24 11:00 Room Air 03/12/24 09:00 Room Air 03/12/24 08:00 03/12/24 08:00 03/12/24 08:00 Room Air 03/12/24 08:00 Room Air 03/12/24 07:00 Room Air 03/12/24 07:00 Room Air 03/12/24 06:00 Room Air 03/12/24 05:00 Room Air 03/12/24 04:00 03/12/24 04:00 Room Air 03/12/24 03:00 Room Air 03/12/24 02:00 Room Air 03/12/24 01:00 Room Air 03/12/24 00:00 03/12/24 00:00 Room Air 03/11/24 23:00 Room Air 03/11/24 23:00 Room Air 03/11/24 22:00 Room Air 03/11/24 21:00 Room Air 03/11/24 20:00 03/11/24 20:00 Room Air 03/11/24 20:00 Room Air 03/11/24 19:00 Room Air 03/11/24 18:36 Room Air 03/11/24 18:00 Room Air 03/11/24 17:53 03/11/24 17:35 Room Air 03/11/24 17:34 Room Air 03/11/24 17:04 Room Air 03/11/24 17:00 03/11/24 16:30 03/11/24 15:30 Room Air 03/11/24 15:00 03/11/24 14:58 03/11/24 14:53 Room Air Intake and Output 03/11/24 03/12/24 03/12/24 23:59 07:59 15:59 Intake Total 645.054 / 721.054 602 / 1155 553 / 1155 Output Total 200 / 200 0 / 0 0 / 0 Balance 445.054 / 521.054 602 / 1155 553 / 1155 Intake: Intake, Oral Amount 120 / 120 360 / 360 Intake, Total IV Amount 525.054 / 601.054 602 / 795 193 / 795 0.9 % Sodium Chloride 1000ML 1, 311 / 311 000 ml @ 150 mls/hr IV .[id number] MARCELO Rx#:[id number] D5W/0.9% NaCl w/20mEq KCL 1,000 183 / 258 600 / 793 193 / 793 ml @ 75 mls/hr IV .[id number] [facility] Rx#:[id number] Insulin Regular, Human 100 unit 2 / 2 In 0.9 % Sodium Chloride 100 ml @ 5 UNIT/HR 5.05 mls/hr IV . Q20H MARCELO Rx#:[id number] Output: Output, Urine Amount 200 / 200 0 / 0 0 / 0 Other: Number of Voids 1 0 Number of Unmeasured Voids 0 1 Weight 46.748 kg 47.1 kg Patient Weight 03/12/24 23:59 Weight 47.1 kg Laboratory Results - last 24 hr 03/11/24 14:56: VBG pH 7.37, VBG pCO2 41.0, VBG pO2 40.3 H, VBG HCO3 23.2, VBG Total CO2 24.4, VBG O2 Saturation 75.1 H, VBG Base Excess -2.1, VBG Lactic Acid 3.0 H 03/11/24 15:08: WBC 16.9 H, RBC 5.68, Hgb 16.8, Hct 52.8 H, MCV 92.9, MCH 29.5, MCHC 31.8, RDW 13.9, Plt Count 380, MPV 7.6, Neut % (Auto) 84.6 H, Lymph % (Auto) 8.6 L, [place] % (Auto) 6.3, Eos % (Auto) 0.1, Baso % (Auto) 0.4, Neut # (Auto) 14.3 H, Lymph # (Auto) 1.5, [place] # (Auto) 1.1 H, Eos # (Auto) 0.0, Baso # (Auto) 0.1, Total Counted 100, Neutrophils % (Manual) 84 H, Lymphocytes % (Manual) 9 L, Monocytes % (Manual) 7, Platelet Estimate Normal, RBC Morphology Normal, Sodium 144, Potassium 4.2, Chloride 98, Carbon Dioxide 24, Anion Gap 26.2 H, BUN 37 H, Creatinine 1.20, Estimated Creat Clear 67, Estimated GFR 74, Est GFR ( Amer) 90, Glucose 414 H*, Hemoglobin A1c 9.8 H D, Lactate 2.0, Calcium 10.0, Magnesium 2.7 H, Total Bilirubin 1.1, AST 34, ALT 29, Alkaline Phosphatase 116, Troponin I < 0.01, Total Protein 8.8 H D, Albumin 5.5 H, Globulin 3.3 H, Albumin/Globulin Ratio 1.7, Lipase 34, Acetone Level Moderate 03/11/24 17:30: Sodium 143, Potassium 3.9, Chloride 103, Carbon Dioxide 24, Anion Gap 19.9 H, BUN 35 H, Creatinine 1.00, Estimated Creat Clear 75, Estimated GFR 92, Est GFR ( Amer) 111 D, Glucose 368 H, Calcium 9.3, Phosphorus 3.3, Troponin I < 0.01 03/11/24 17:58: POC Glucose 306 H* 03/11/24 19:00: POC Glucose 217 H 03/11/24 19:30: Urine Color Yellow, Urine Appearance Clear, Urine pH 6.0, Ur Specific [place] 1.025, Urine Protein Negative, Urine Glucose (UA) 2+, Urine Ketones 2+, Urine Blood Trace-i, Urine Nitrate Negative, Urine Bilirubin Negative, Urine Urobilinogen 0.2, Ur Leukocyte Esterase Negative, Urine RBC Occasional, Urine WBC Occasional, Urine Bacteria Trace, Urine Mucus Trace 03/11/24 19:41: Lactate 1.2 03/11/24 20:03: POC Glucose 149 H 03/11/24 20:30: Sodium 147 H, Potassium 4.0, Chloride 108 H, Carbon Dioxide 29, Anion Gap 14.0, BUN 35 H, Creatinine 1.00, Estimated Creat Clear 75, Estimated GFR 92, Est GFR ( Amer) 111, Glucose 144 H D, Calcium 9.5, Troponin I < 0.01 03/11/24 21:01: POC Glucose 128 H 03/11/24 22:07: POC Glucose 143 H 03/11/24 23:10: POC Glucose 143 H 03/12/24 00:10: Sodium 147 H, Potassium 4.1, Chloride 111 H, Carbon Dioxide 30, Anion Gap 10.1, BUN 30 H, Creatinine 1.00, Estimated Creat Clear 75, Estimated GFR 92, Est GFR ( Amer) 111, Glucose 149 H, Calcium 9.3 03/12/24 00:13: POC Glucose 138 H 03/12/24 01:09: POC Glucose 129 H 03/12/24 05:00: WBC 14.4 H, RBC 4.83, Hgb 14.5 D, Hct 45.0, MCV 93.2, MCH 29.9, MCHC 32.1, RDW 13.7, Plt Count 449 H, MPV 7.8, Neut % (Auto) 79.8, Lymph % (Auto) 12.3, [place] % (Auto) 7.1, Eos % (Auto) 0.4, Baso % (Auto) 0.4, Neut # (Auto) 11.5 H, Lymph # (Auto) 1.8, [place] # (Auto) 1.0, Eos # (Auto) 0.1, Baso # (Auto) 0.1, Sodium 148 H, Potassium 4.0, Chloride 111 H, Carbon Dioxide 30, Anion Gap 11.0, BUN 33 H, Creatinine 1.10, Estimated Creat Clear 69, Estimated GFR 82, Est GFR ( Amer) 100, Glucose 183 H D, Calcium 8.9, Phosphorus 2.6, Magnesium 2.5 H, Total Bilirubin 0.9, AST 32, ALT 27, Alkaline Phosphatase 66, Total Protein 6.9, Albumin 4.3 D, Globulin 2.6, Albumin/Globulin Ratio 1.7 03/12/24 05:08: POC Glucose 196 H 03/12/24 06:13: POC Glucose 190 H I & O for Labs for Last 24 Hours: Intake & Output 03/09/24 03/10/24 03/11/24 03/12/24 23:59 23:59 23:59 23:59 Intake Total 645.054 / 530.194 0208 / 1155 Output Total 200 / 200 0 / 0 Balance 445.054 / 831.062 5589 / 1155 Weight 46.748 kg 47.1 kg Constitutional: Present no acute distress, thin and chronically ill appearing Head: Present atraumatic and normocephalic ENT: Present normal exam Neck: Present normal inspection Respiratory: Present normal respiratory effort; Absent rhonchi, wheezes or crackles Cardiac: Present Reg Rate and Rhythm GI: Present soft and normal bowel sounds; Absent distention, tenderness, guarding or rebound Extremities: Present normal inspection and full ROM Skin: Present intact; Absent erythema Neuro: Present Grossly Intact, alert, awake, oriented x 3 and moves all extremities Assessment and Plan *Assessment and plan (1) Diabetic ketoacidosis: Status: Acute Qualifiers: Diabetes mellitus complication detail: without coma Diabetes mellitus type: type 1 Qualified Code(s): E10.10 - Type 1 diabetes mellitus with ketoacidosis without coma Category: Medical Code(s): E11.10 - Type 2 diabetes mellitus with ketoacidosis without coma (2) High anion gap metabolic acidosis: Status: Acute Category: Medical Code(s): E87.29 - Other acidosis (3) Intractable nausea and vomiting: Status: Acute Category: Medical Code(s): R11.2 - Nausea with vomiting, unspecified (4) Dehydration, moderate: Status: Resolved Category: Medical Code(s): E86.0 - Dehydration (5) Abdominal pain: Status: Acute Qualifiers: Abdominal location: unspecified location Qualified Code(s): R10.9 - Unspecified abdominal pain Category: Medical Code(s): R10.9 - Unspecified abdominal pain (6) Diabetic gastroparesis: Status: Acute Category: Medical Code(s): E11.43 - Type 2 diabetes mellitus with diabetic autonomic (poly)neuropathy; K31.84 - Gastroparesis (7) Diabetes mellitus type 1: Status: Acute Qualifiers: Diabetes mellitus complication status: with other specified complication Qualified Code(s): E10.69 - Type 1 diabetes mellitus with other specified complication Category: Medical Code(s): E10.9 - Type 1 diabetes mellitus without complications Plan 23-year-old male with PMHX insulin-dependent diabetic, medically non compliant, hyperthyroidism, and diabetic gastroparesis. Presented today with nausea, vomiting and abdominal discomfort. Upon arrival, patient found to be in DKA. Discussed case with ER physician, request admission for insulin drip and DKA protocol. Medicine agreed to admit for further management. Anion gap closed overnight. On basal bolus regimen this morning. Will advance diet to full liquids. Problems addressed as follows: Diabetic ketoacidosis Intractable nausea and vomiting likely secondary to high anion gap metabolic acidosis Diabetic gastroparesis -Anion gap closed overnight. Monitoring CMP daily with CBC and magnesium. -Sodium elevated today at 148, chloride 111. Discontinuing IV fluids. Tolerating p.o. liquids. Repeat BMP this afternoon. -Morning glucose 183. - Continue pantoprazole 40 mg nightly - Continue Reglan 10 mg IV ACHS for nausea -White count elevated improving but still elevated at 14.4. likely reactive. Monitor for any antibiotic needs. Cultures pending. -BUN 33, creatinine 1.1. Stable from admission. Above baseline. Type 1 diabetes: Noncompliant -A1c 9.8, up from 2 months ago at 7.3. Patient has not seen his primary care to address his diabetes since last admission. -Increase glargine to 25 units tonight. Continue sliding scale insulin with fingersticks ACHS. Full code Full liquid diet
[2024-03-12 16:40] LABS: POC Glucose,Bedside 206 (70-110)
[2024-03-12 16:40] LABS: POC Glucose,Bedside 224 (70-110)
--- NOTE | 2024-03-12 17:14 | PC.NURSE ---
VS stable, patient able to tolerate full liquid diet. Blood sugars stable, 205 and 224, subq insulin given. Patient ambulated around room multiple times today and also able to rest. Patient alert and oriented times 4. IV reglan given for nausea.
[2024-03-12 18:45] LABS: Chloride 111 mmol/L (98-107); Potassium 3.5 mmoL/L (3.5-5.1); Sodium 147 mmol/L (136-145)
[2024-03-12 18:48] LABS: Anion Gap 10.5 mEq/L (5-15); Blood Urea Nitrogen 28 mg/dl (9-20); Calcium 9.2 mg/dl (8.4-10.2); Carbon Dioxide 29 mmol/L (22.0-30.0); Creatinine Clearance Estimated 76 mL/min (50-200); Estimated Glomerular Filt Rate 92 ml/min (>60); GFR (African American) 111 ML/MIN (>60); Glucose 220 mg/dl (74-100)
[2024-03-12 20:31] LABS: POC Glucose,Bedside 159 (70-110)
[2024-03-12] MEDS: SODIUM CHLORIDE 0.9% 10ML VIAL 10 ML IV (20:48)
[2024-03-12] MEDS: INSULIN GLARGINE 100 UNITS/ML 3ML FLEXPEN 25 UNIT SQ (20:48)
[2024-03-12] MEDS: PANTOPRAZOLE 40MG VIAL 40 MG IV (20:48)
[2024-03-13 04:00] VITALS: BP 120/84; PULSE 61; RESP 16; TEMP 36.8; O2SAT 100; BMI 16.8
[2024-03-13 06:22] LABS: Basophils % 0.3 % (0.1-2.0); Hematocrit 44.6 % (42.0-52.0); Hemoglobin 14.1 g/dL (14.1-18.0); Lymphocytes # 1.6 K/mm3 (0.7-4.5); Lymphocytes % 15.9 % (10-50); Mean Corpuscular HGB Conc 31.7 g/dL (31.8-35.4); Mean Corpuscular Hemoglobin 29.2 pg (27.0-31.2); Mean Corpuscular Volume 92.3 fl (80-94); Mean Platelet Volume 7.4 fl (7.4-10.4); Monocytes # 0.6 K/mm3 (0.1-1.0); Neutrophils # 7.6 K/mm3 (1.8-7.8); Neutrophils % 77.8 % (37.0-80.0); Platelet Count 309 K/mm3 (142-424); Red Blood Count 4.83 M/mm3 (4.60-6.20); Red Cell Distribution Width 13.7 % (11.5-17.5); White Blood Count 9.8 K/mm3 (4.8-10.8)
[2024-03-13 06:26] LABS: Albumin Level 4.1 g/dl (3.5-5.0); Chloride 113 mmol/L (98-107); Potassium 3.5 mmoL/L (3.5-5.1); Sodium 149 mmol/L (136-145)
[2024-03-13 06:29] LABS: Alanine Aminotransferase 19 U/L (12-78); Albumin/Globulin Ratio 1.8 (1.1-1.8); Alkaline Phosphatase 71 U/L (38-126); Anion Gap 9.5 mEq/L (5-15); Aspartate Amino Transferase 24 U/L (17-59); Bilirubin,Total 0.7 mg/dl (0.2-1.3); Blood Urea Nitrogen 25 mg/dl (9-20); Carbon Dioxide 30 mmol/L (22.0-30.0); Creatinine Clearance Estimated 78 mL/min (50-200); Estimated Glomerular Filt Rate 92 ml/min (>60); GFR (African American) 111 ML/MIN (>60); Globulin 2.3 g/dL (1.3-3.2); Total Protein,Serum 6.4 g/dl (6.3-8.2)
[2024-03-13 06:30] LABS: Calcium 8.9 mg/dl (8.4-10.2); Glucose 127 mg/dl (74-100); Magnesium 2.2 mg/dl (1.6-2.3)
[2024-03-13 06:44] LABS: POC Glucose,Bedside 130 (70-110)
[2024-03-13 07:33] VITALS: BP 134/90; PULSE 67; RESP 17; O2SAT 100
--- NOTE | 2024-03-13 08:23 | EXP.DC.SUM ---
General Admission date:: 03/11/24 Discharge date: 03/13/24 HPI HPI HPI: 23-year-old male with history of type 1 diabetes presenting with tractable nausea and vomiting, abdominal pain. Patient states that he started vomiting and having high glucose readings approximately 3 days ago. Pain began in his abdomen prior to the emesis. Denies any blood in his emesis. Was checking his blood sugar and found to be HI on his monitor. Administering short acting insulin but not seeing any improvement. States has been taking his basal insulin nightly with last dose administered last night. Denies any fever, chest pain, shortness of breath. Last bowel movement was yesterday. Workup in the ER concerning for DKA versus intractable nausea and vomiting from his gastroparesis. Initiated on IV fluids. Medicine was consulted for treatment of DKA. On arrival to the floor, patient is alert and able to answer questions but appears quite ill and fatigued. On room air. Remains tachycardic. Hospital Course Hospital Course Hospital Course: 23-year-old male with PMHX insulin-dependent diabetic, medically non compliant, hyperthyroidism presented today with nausea, vomiting and abdominal discomfort. Admitted for DKA. Initiated on DKA protocol with closure of gap within 24 hours. Monitored for stability and ability to tolerate oral intake for an additional 24 hours. Tolerating diet without any further emesis. Still having some mild nausea. Stable to discharge home with continued treatment with antiemetics and insulin regimen. Recommend close follow-up with PCP within the next week. Problems addressed as follows: Diabetic ketoacidosis Intractable nausea and vomiting likely secondary to high anion gap metabolic acidosis Diabetic gastroparesis -Anion gap elevated on admission. Improved with closure overnight on DKA protocol/insulin drip. Anion gap remained closed during admission. Able to transition to basal bolus regimen. Tolerating long-acting insulin once daily with sliding scale insulin with meals. Advance diet, tolerating p.o. intake without difficulty. No further emesis but still having nausea. Will continue metoclopramide 10 mg p.o. as needed 3-4 times a day. Given improvement in labs, tolerance of p.o. intake, normalization of glucose control, stable to discharge home with further management. -White count elevated on admission, suspected to be reactive. No antibiotics were initiated. Normalized to 9.8 by day of discharge. Kidney function at baseline with BUN of 25 creatinine 1 on day of discharge. Sodium still mildly elevated at 149, anticipate improvement with continued p.o. fluid resuscitation. Type 1 diabetes: Noncompliant -A1c 9.8, up from 2 months ago at 7.3. Patient has not seen his primary care to address his diabetes since last admission. Continue insulin glargine 25 units nightly. Resume mealtime short acting insulin 10 units with meals. Close follow-up with PCP in the next week for further management. Exam Data for Last 24 hours Vital signs and Labs for Last 24 Hours: Temp Pulse Resp BP Pulse Ox O2 Del Method 98.2 F 67 17 134/90 100 Room Air 03/13/24 04:00 03/13/24 07:33 03/13/24 07:33 03/13/24 07:33 03/13/24 07:33 03/13/24 07:33 Laboratory Results - last 24 hr 03/12/24 11:05: POC Glucose 206 H 03/12/24 16:33: POC Glucose 224 H 03/12/24 18:15: Sodium 147 H, Potassium 3.5, Chloride 111 H, Carbon Dioxide 29, Anion Gap 10.5, BUN 28 H, Creatinine 1.00, Estimated Creat Clear 76, Estimated GFR 92, Est GFR ( Amer) 111, Glucose 220 H D, Calcium 9.2 03/12/24 20:16: POC Glucose 159 H 03/13/24 05:16: WBC 9.8 D, RBC 4.83, Hgb 14.1, Hct 44.6, MCV 92.3, MCH 29.2, MCHC 31.7 L, RDW 13.7, Plt Count 309 D, MPV 7.4, Neut % (Auto) 77.8, Lymph % (Auto) 15.9, [place] % (Auto) 6.0, Eos % (Auto) 0.0 L, Baso % (Auto) 0.3, Neut # (Auto) 7.6, Lymph # (Auto) 1.6, [place] # (Auto) 0.6, Eos # (Auto) 0.0, Baso # (Auto) 0.0, Sodium 149 H, Potassium 3.5, Chloride 113 H, Carbon Dioxide 30, Anion Gap 9.5, BUN 25 H, Creatinine 1.00, Estimated Creat Clear 78, Estimated GFR 92, Est GFR ( Amer) 111, Glucose 127 H D, Calcium 8.9, Magnesium 2.2 D, Total Bilirubin 0.7, AST 24, ALT 19 D, Alkaline Phosphatase 71, Total Protein 6.4, Albumin 4.1, Globulin 2.3, Albumin/Globulin Ratio 1.8 03/13/24 06:15: POC Glucose 130 H I & O for Last 24 hours: Intake & Output 03/10/24 03/11/24 03/12/24 03/13/24 23:59 23:59 23:59 23:59 Intake Total 645.054 / 787.277 5517 / 1995 Output Total 200 / 200 0 / 0 Balance 445.054 / 763.941 5049 / 1995 Weight 46.748 kg 47.1 kg 48.716 kg Microbiology Reports for the Last 24 Hours: Microbiology 03/11/24 15:06 Blood Blood Culture - Final 03/11/24 15:08 Blood Blood Culture - Preliminary NO GROWTH AFTER 24 HOURS Constitutional Constitutional: no acute distress, thin, chronically ill appearing and cooperative *Routine HEENT Exam Head: Present normocephalic Eye: Present EOMI and PERRL ENT: Present mucous membranes moist *Routine Neck Exam Neck: Present supple; Absent lymphadenopathy *Routine Respiratory Exam Respiratory: Present CTA bilaterally; Absent rhonchi, wheezes or crackles *Routine Cardiovascular Exam Cardiovascular: Present RRR *Routine Abdominal Exam Abdominal: Present soft and normoactive bowel sounds; Absent tenderness or distended *Routine Rectal Exam Patient deferred: visual exam *Routine Exam Patient deferred: penile exam *Routine Extremities Exam Extremities: Absent cyanosis, clubbing or edema *Routine Skin Exam Skin: Present warm; Absent rash *Routine Neurological Exam Neurological: Present alert, oriented X3 and moving all extremities; Absent altered mental status Routine Psychiatric Exam Psychiatric: Present normal affect Results Data Completed and Pending Labs on day of discharge: Labs from last 24 hours 03/13/24 03/13/24 03/12/24 06:15 05:16 20:16 WBC 9.8 D RBC 4.83 Hgb 14.1 Hct 44.6 MCV 92.3 MCH 29.2 MCHC 31.7 L RDW 13.7 Plt Count 309 D MPV 7.4 Neut % (Auto) 77.8 Lymph % (Auto) 15.9 [place] % (Auto) 6.0 Eos % (Auto) 0.0 L Baso % (Auto) 0.3 Neut # (Auto) 7.6 Lymph # (Auto) 1.6 [place] # (Auto) 0.6 Eos # (Auto) 0.0 Baso # (Auto) 0.0 Sodium 149 H Potassium 3.5 Chloride 113 H Carbon Dioxide 30 Anion Gap 9.5 BUN 25 H Creatinine 1.00 Estimated Creat Clear 78 Estimated GFR 92 Est GFR ( Amer) 111 Glucose 127 H D POC Glucose 130 H 159 H Calcium 8.9 Magnesium 2.2 D Total Bilirubin 0.7 AST 24 ALT 19 D Alkaline Phosphatase 71 Total Protein 6.4 Albumin 4.1 Globulin 2.3 Albumin/Globulin Ratio 1.8 03/12/24 03/12/24 03/12/24 18:15 16:33 11:05 WBC RBC Hgb Hct MCV MCH MCHC RDW Plt Count MPV Neut % (Auto) Lymph % (Auto) [place] % (Auto) Eos % (Auto) Baso % (Auto) Neut # (Auto) Lymph # (Auto) [place] # (Auto) Eos # (Auto) Baso # (Auto) Sodium 147 H Potassium 3.5 Chloride 111 H Carbon Dioxide 29 Anion Gap 10.5 BUN 28 H Creatinine 1.00 Estimated Creat Clear 76 Estimated GFR 92 Est GFR ( Amer) 111 Glucose 220 H D POC Glucose 224 H 206 H Calcium 9.2 Magnesium Total Bilirubin AST ALT Alkaline Phosphatase Total Protein Albumin Globulin Albumin/Globulin Ratio Preliminary micro results at discharge 03/11/24 15:08 Blood Culture - Preliminary Blood NO GROWTH AFTER 24 HOURS DS: Diagnosis Discharge Diagnosis (1) Diabetic ketoacidosis: Status: Acute Code(s): E11.10 - Type 2 diabetes mellitus with ketoacidosis without coma Qualifiers: Diabetes mellitus complication detail: without coma Diabetes mellitus type: type 1 Qualified Code(s): E10.10 - Type 1 diabetes mellitus with ketoacidosis without coma (2) High anion gap metabolic acidosis: Status: Acute Code(s): E87.29 - Other acidosis (3) Intractable nausea and vomiting: Status: Acute Code(s): R11.2 - Nausea with vomiting, unspecified (4) Dehydration, moderate: Status: Resolved Code(s): E86.0 - Dehydration (5) Abdominal pain: Status: Acute Code(s): R10.9 - Unspecified abdominal pain Qualifiers: Abdominal location: unspecified location Qualified Code(s): R10.9 - Unspecified abdominal pain (6) Diabetic gastroparesis: Status: Acute Code(s): E11.43 - Type 2 diabetes mellitus with diabetic autonomic (poly)neuropathy; K31.84 - Gastroparesis (7) Diabetes mellitus type 1: Status: Acute Code(s): E10.9 - Type 1 diabetes mellitus without complications Qualifiers: Diabetes mellitus complication status: with other specified complication Qualified Code(s): E10.69 - Type 1 diabetes mellitus with other specified complication Meds Home Medications and Allergies Home Medications ?Medication ?Instructions ?Recorded ?Confirmed ?Type pen needle, diabetic 32 gauge x #100 ea 09/18/23 03/11/24 Rx 1/4 (BD Ultra-Fine Micro Pen Needle) insulin glargine U-300 conc 300 25 unit (0.0833 mL) SQ HS 30 days 03/13/24 Rx unit/mL (3 mL) subcutaneous pen #2.499 mL insulin lispro 200 unit/mL (3 mL) 10 unit (0.05 mL) SQ TID 30 days 03/13/24 03/11/24 Rx subcutaneous pen (Humalog KwikPen #12 mL U-200 Insulin) metoclopramide HCl 10 mg tablet 10 mg PO ACHS PRN nausea and 03/13/24 Rx vomiting 30 days #120 tabs New Prescriptions to Start Prescriptions: insulin glargine U-300 Harshil Ruelas metoclopramide HCl Harshil Schultz Allergies Allergy/AdvReac Type Severity Reaction Status Date / Time No Known Allergies Allergy Verified 01/09/24 11:29 Discharge Plan Disposition Patient Disposition: Home, Self-Care Condition: Fair Discharge Order Discharge Orders: Discharge Order (Routine); Ordered 03/13/24 Ordered By: Harshil Schultz Follow up Plan Follow up with: Gretchen Angelo APRN [Primary Care Provider] - 03/20/24 1:00 pm Prescriptions/Medication Reconciliation: New metoclopramide HCl 10 mg tablet 10 mg PO ACHS PRN (Reason: nausea and vomiting) 30 Days Qty: 120 0RF Changed Humalog KwikPen Insulin 200 unit/mL (3 mL) insulin pen 10 unit SQ TID 30 Days Qty: 12 3RF insulin glargine U-300 conc 300 unit/mL (3 mL) insulin pen 25 unit SQ HS 30 Days Qty: 2.499 5RF No Action (DME) pen needle, diabetic [BD Ultra-Fine Micro Pen Needle] 32 gauge x 1/4 needle See Rx Instructions .Route Qty: 100 3RF Rx Instructions: As directed Problem Reconciliation Problems Reviewed?: Yes Patient Discharge Instructions ACTIVITY: Continue current activity DIET: continue same diet Patient Instructions: DI for Diabetic Ketoacidosis Print Language: [place] Providers Primary Care Provider: Gretchen Angelo Admit Provider: Harshil Schultz Attending Provider: Harshil Schultz
[2024-03-13 11:36] LABS: POC Glucose,Bedside 92 (70-110)
[2024-03-13 11:58] VITALS: BP 137/84; PULSE 50; RESP 16; TEMP 36.7; O2SAT 100
[2024-03-13] MEDS: METOCLOPRAMIDE HCL 10MG/2ML VIAL 10 MG IVP (12:03)
--- NOTE | 2024-03-14 11:30 | SW/DCPLANNER ---
Hospital follow up phone call: patient stated that he is feeling much better, was able to pickle processor his new medication and is aware of his follow up appointment w/ PCP.
== END 2024-03-13 13:12 | disposition home or self-care (01) | DRG 639 ==
LOC: ER 15:50 → 2ND 16:25
PROVIDERS: Admitting Provider Internal Medicine Adolescent Medicine; Emergency Provider Emergency Medicine; PCP Nurse Practitioner; Visit Provider Internal Medicine Adolescent Medicine
DX: E11.10 Type 2 diabetes mellitus with ketoacidosis without coma (principal); E86.0 Dehydration; E11.43 Type 2 diabetes mellitus with diabetic autonomic (poly)neuropathy; K31.84 Gastroparesis; F17.210 Nicotine dependence, cigarettes, uncomplicated
CPT/HCPCS: 36415; 80048; 80053; 81001; 82009; 82803; 82962; 83036; 83605; 83690; 83735; 84100; 84484; 85007; 85025; 85027; 87040; 87077; 87186; 93005; 99291; J1885; J2270; J2405; J2765; J7030; J7042; J7120

== ENCOUNTER 2024-04-03 19:19 | Outpatient (CLI) | payer OTHER, SELFPAY ==
[2024-04-03 19:35] LABS: 25-OH Vitamin D, Total < 12.8 ng/mL (30-100)
[2024-04-03 19:49] LABS: Alanine Aminotransferase 15 U/L (12-78); Albumin Level 3.8 g/dl (3.5-5.0); Albumin/Globulin Ratio 1.5 (1.1-1.8); Alkaline Phosphatase 68 U/L (38-126); Anion Gap 9.3 mEq/L (5-15); Aspartate Amino Transferase 25 U/L (17-59); Bilirubin,Total 0.5 mg/dl (0.2-1.3); Blood Urea Nitrogen 12 mg/dl (9-20); Calcium 9.5 mg/dl (8.4-10.2); Carbon Dioxide 28 mmol/L (22.0-30.0); Chloride 103 mmol/L (98-107); Chol/HDL Ratio 2.3 (1-3.5); Cholesterol 208 mg/dl (140-200); Estimated Glomerular Filt Rate 166 ml/min (>60); GFR (African American) 200 ML/MIN (>60); Globulin 2.5 g/dL (1.3-3.2); Glucose 202 mg/dl (74-100); HDL Cholesterol 90 mg/dl (40-60); Potassium 4.3 mmoL/L (3.5-5.1); Sodium 136 mmol/L (136-145); Total Protein,Serum 6.3 g/dl (6.3-8.2); Triglycerides 76 mg/dl (30-150); VLDL Cholesterol 15 mg/dL (0-40)
[2024-04-03 20:01] LABS: Direct LDL Cholesterol 90.47 mg/dL (100-129)
[2024-04-03 20:20] LABS: Thyroid Stimulating Hormone 0.71 uIU/mL (0.465-4.68)
[2024-04-03 20:39] LABS: Vitamin B12 273 pg/mL (239-931)
[2024-04-03 21:51] LABS: Basophils # 0.1 K/mm3 (0-0.2); Basophils % 0.9 % (0.1-2.0); Eosinophils # 0.2 K/mm3 (0.0-0.4); Eosinophils % 2.4 % (0.1-12.0); Hematocrit 43.7 % (42.0-52.0); Hemoglobin 13.8 g/dL (14.1-18.0); Lymphocytes # 2.2 K/mm3 (0.7-4.5); Lymphocytes % 34.4 % (10-50); Mean Corpuscular HGB Conc 31.5 g/dL (31.8-35.4); Mean Corpuscular Hemoglobin 29.4 pg (27.0-31.2); Mean Corpuscular Volume 93.3 fl (80-94); Mean Platelet Volume 7.8 fl (7.4-10.4); Monocytes # 0.4 K/mm3 (0.1-1.0); Monocytes % 6.4 % (1.7-9.3); Neutrophils # 3.5 K/mm3 (1.8-7.8); Neutrophils % 55.8 % (37.0-80.0); Platelet Count 329 K/mm3 (142-424); Red Blood Count 4.68 M/mm3 (4.60-6.20); Red Cell Distribution Width 13.7 % (11.5-17.5); White Blood Count 6.2 K/mm3 (4.8-10.8)
== END 2024-04-03 23:59 | disposition home or self-care (01) ==
LOC: LAB.DROPOF 19:20
PROVIDERS: PCP Nurse Practitioner; Visit Provider Nurse Practitioner
DX: E10.69 Type 1 diabetes mellitus with other specified complication (principal)
CPT/HCPCS: 80050; 80053; 80061; 82306; 82607; 83036; 84443; 85025

== ENCOUNTER 2024-04-28 19:51 | Inpatient (IN) | payer OTHER, SELFPAY ==
[2024-04-28 19:52] VITALS: BP 132/88; PULSE 58; RESP 14; TEMP 37.2; O2SAT 97; BMI 18.8
--- NOTE | 2024-04-28 19:58 | XR_ITS ---
PROCEDURE INFORMATION: Exam: XR Chest Exam date and time: 04/28/2024 7:58 PM Age: 23 years old Clinical indication: Pain; Shortness of breath; Other: Cp; Additional info: Chest pain, SOA TECHNIQUE: Imaging protocol: Radiologic exam of the chest. Views: 1 view. COMPARISON: CR XR CHEST PORTABLE 01/24/2023 17:13 FINDINGS: Lungs: Unremarkable. No consolidation. Pleural spaces: Unremarkable. No pleural effusion. No pneumothorax. Heart/Mediastinum: Unremarkable. No cardiomegaly. Bones/joints: Unremarkable. IMPRESSION: No acute findings.
--- NOTE | 2024-04-28 20:02 | HMH.EDGENADL ---
Discharge Plan Disposition Patient Disposition: Admitted Prescriptions Prescriptions: No Action (DME) pen needle, diabetic [BD Ultra-Fine Micro Pen Needle] 32 gauge x 1/4 needle See Rx Instructions .Route Qty: 100 3RF Rx Instructions: As directed insulin glargine U-300 conc 300 unit/mL (3 mL) insulin pen 30 unit SQ HS 30 Days Qty: 3 5RF levofloxacin 500 mg tablet 500 mg PO Q24H Qty: 10 0RF cyanocobalamin (vitamin B-12) 1,000 mcg tablet 1,000 mcg PO DAILY Qty: 90 1RF cholecalciferol (vitamin D3) 1,250 mcg (50,000 unit) capsule 1,250 mcg PO WEEKLY Qty: 8 0RF metoclopramide HCl 10 mg tablet 10 mg PO ACHS PRN (Reason: nausea and vomiting) 30 Days Qty: 120 0RF Humalog KwikPen Insulin 200 unit/mL (3 mL) insulin pen 10 unit SQ TID 30 Days Qty: 12 3RF Referrals Follow up/Referrals: Gretchen Angelo APRN [Primary Care Provider] - See instructions Clinical Impressions Clinical Impression: DKA, type 1, Nausea & vomiting, Hypomagnesemia Instructions Patient Instructions: DI for Diarrhea and Traveler's Diarrhea -- Adult, DI for Diarrhea and Traveler's Diarrhea -- Child, DI for Nausea -- Adult, DI for Nausea -- Child Print Language Print Language: [place] Discharge ED Provider: Karo Wilks General Adult HPI General Chief complaint: Nausea/Vomiting/Diarrhea Stated complaint: vomiting Time Seen by Provider: 04/28/24 19:53 History of Present Illness HPI narrative: This patient is a 23-year-old male with a history of type 1 diabetes, hypothyroidism, cyclic vomiting syndrome, diabetic gastroparesis, marijuana use, and medication noncompliance presenting to the emergency department for evaluation with concern that I may be going into DKA. He reports that he does not have any way to check fingerstick. He states typically he has a continuous glucose monitor in his arm, but he has had trouble getting a refill. Given this, has not been checking his blood sugar for few days. He states has been trying to wing it and take some insulin, but he isn't getting much in. Today, he states that he started having generalized abdominal pain, nausea, and vomiting. His vomit was initially normal color but has since become blood-tinged. He complains of significant irritation in his chest and throat. No other concerns noted. Related Data Previous Rx's ?Medication ?Instructions ?Recorded insulin lispro 200 unit/mL (3 mL) 10 unit (0.05 mL) SQ TID 30 days 03/13/24 subcutaneous pen (Humalog KwikPen #12 mL U-200 Insulin) metoclopramide HCl 10 mg tablet 10 mg PO ACHS PRN nausea and 03/13/24 vomiting 30 days #120 tabs insulin glargine U-300 conc 300 30 unit (0.1 mL) SQ HS 30 days #3 03/20/24 unit/mL (3 mL) subcutaneous pen mL pen needle, diabetic 32 gauge x #100 ea 03/20/2407/19 (BD Ultra-Fine Micro Pen Needle) levofloxacin 500 mg tablet 500 mg PO Q24H #10 tabs 04/03/24 cholecalciferol (vitamin D3) 1,250 1,250 mcg PO WEEKLY #8 caps 04/04/24 mcg (50,000 unit) capsule cyanocobalamin (vitamin B-12) 1,000 mcg PO DAILY #90 tabs 04/04/24 1,000 mcg tablet Allergies Allergy/AdvReac Type Severity Reaction Status Date / Time No Known Allergies Allergy Verified 04/03/24 13:16 [facility] Disclaimer: The information contained in this section may have been updated after the patient was seen, as this information can be updated by other users. Medical History Vitamin D deficiency Vitamin B12 deficiency Diabetes mellitus type 1 Hyperthyroidism Family History Other Cancer Diabetes Hypertension Social History Smoking Status: Current every day smoker alcohol intake: never current occupational status: unemployed Travel in the last 8 weeks: None Other Medical History Have you received the Flu Vaccine for this season: No Have you received the Pneumonia Vaccine: No ROS Obtained: Yes All systems reviewed & no additional complaints except as documented Physical Exam General General appearance: alert and in no apparent distress Head Head exam: atraumatic and normocephalic Eye Eye exam: Present normal appearance, PERRL and EOMI ENT ENT exam: Present normal exam, normal oropharynx, mucous membranes moist and normal external ear exam Neck Neck exam: Present normal inspection, full ROM and trachea midline; Absent tenderness Chest Chest inspection: Present normal inspection and symmetric chest wall rise; Absent tenderness Respiratory Respiratory exam: Present normal lung sounds bilaterally; Absent respiratory distress, wheezes, stridor or accessory muscle use Cardiovascular Cardiovascular exam: Present regular rate and normal rhythm Abdominal Exam Abdominal exam: Present soft and tenderness (Mild generalized); Absent distention, guarding, rebound or rigidity Extremities Exam Extremities exam: Present normal inspection, full ROM and normal capillary refill; Absent tenderness or edema Back Exam Back exam: Present normal inspection and full ROM; Absent tenderness Neurological Exam Neurological exam: Present alert, oriented X3, CN II-XII intact and normal gait; Absent motor sensory deficit Psychiatric Psychiatric exam: Present normal affect and normal mood Skin Skin exam: Present warm and dry Medical Decision Making Medical Records Medical records reviewed: Yes I reviewed the patient's medical records. Screening: Per USPSTF and CDC recommendations, given the prevalence of disease in our region, it is our hospital?s policy to screen for HIV and viral Hepatitis for all patients aged 18 and over and those with ongoing risk factors. Lui Inquiry Pt receiving controlled substance: No Vital Signs: 04/28/24 19:52 04/28/24 20:30 04/28/24 21:00 Temperature 98.9 F Temperature Source Oral Pulse Rate 63 70 Pulse Rate [Left] 58 L Respiratory Rate 14 Blood Pressure 117/80 128/77 Blood Pressure [Right Arm] 132/88 Blood Pressure Mean [Right Arm] 102 02 Sat by Pulse Oximetry 97 95 96 Lab Data Lab results reviewed: Yes I reviewed the patient's lab results. Lab Results 04/28/24 19:55: Urine Color Yellow, Urine Appearance Clear, Urine pH 6.0, Ur Specific [place] 1.020, Urine Protein Negative, Urine Glucose (UA) 3+, Urine Ketones 3+, Urine Blood Negative, Urine Nitrate Negative, Urine Bilirubin Negative, Urine Urobilinogen 0.2, Ur Leukocyte Esterase Negative, Urine RBC None, Urine WBC None, Ur Squamous Epith Cells 3-5, Urine Bacteria Trace, Urine Opiates Screen Negative, Urine Methadone Screen Negative, Ur Barbituates Screen Negative, Ur Phencyclidine Scrn Negative, Ur Amphetamines Screen Negative, U Benzodiazepines Scrn Negative, Urine Cocaine Screen Negative, U Marijuana (THC) Screen Positive H 04/28/24 19:58: VBG pH 7.25 L, VBG pCO2 43.8, VBG pO2 43.8 H, VBG HCO3 18.6 L, VBG Total CO2 19.9 L, VBG O2 Saturation 76.0 H, VBG Base Excess -8.7 L, VBG Lactic Acid 4.6 H 04/28/24 20:00: WBC 14.9 H, RBC 5.17, Hgb 15.3, Hct 45.9, MCV 88.9, MCH 29.6, MCHC 33.3, RDW 13.5, Plt Count 314, MPV 7.1 L, Neut % (Auto) 88.9 H, Lymph % (Auto) 7.0 L, [place] % (Auto) 3.5, Eos % (Auto) 0.0 L, Baso % (Auto) 0.5, Neut # (Auto) 13.3 H, Lymph # (Auto) 1.1, Bracken # (Auto) 0.5, Eos # (Auto) 0.0, Baso # (Auto) 0.1, Sodium 134 L, Potassium 4.7, Chloride 100, Carbon Dioxide 19 L, Anion Gap 19.7 H, BUN 17, Creatinine 0.70, Estimated Creat Clear 125, Estimated GFR 139, Est GFR ( Amer) 168, Glucose 502 H*, Hemoglobin A1c 9.9 H, Lactate 4.0 H, Calcium 10.1, Phosphorus 5.9 H, Magnesium 1.5 L, Total Bilirubin 1.1, AST 44, ALT 43, Alkaline Phosphatase 90, Troponin I < 0.01, Total Protein 7.5, Albumin 5.3 H, Globulin 2.2, Albumin/Globulin Ratio 2.4 H, Lipase 43, Thyroxine (T4) 11.5 H, Acetone Level Small, HIV 1&2 Antibody Rapid Nonreactive 04/28/24 20:00 04/28/24 20:00 Orders (Tests/Meds): ED MEDICATIONS Generic Name Dose Route Start Last Admin Trade Name Freq PRN Reason Stop Dose Admin Dextrose 50 ml 04/28/24 21:35 Dextrose 50% 50ml Syringe (Crash Cart) IVP 05/28/24 21:34 NEEDED PRN Per DKA Protocol Sodium Chloride 2,000 mls @ 999 mls/hr 04/28/24 20:00 04/28/24 20:03 Sod Chlor 0.9% 1000ml Bag IV 05/28/24 19:59 999 mls/hr .Q2H1M MARCELO Administration Sodium Chloride 1,000 mls @ 150 mls/hr 04/28/24 23:30 Sod Chlor 0.9% 1000ml Bag IV 05/28/24 23:29 .Q6H40M MARCELO Insulin Human Regular 100 unit 101 mls @ 5.05 mls/hr 04/28/24 21:30 04/28/24 21:48 / Sodium Chloride IV 05/28/24 21:29 5 unit/hr .Q20H MARCELO 5.05 mls/hr Administration Protocol 5 UNIT/HR Magnesium Sulfate 2 gm in 50 mls @ 50 mls/hr 04/28/24 21:33 04/28/24 21:52 Magnesium Sulfate 2gm/50ml Premix IV 04/28/24 22:32 50 mls/hr ONCE ONE Administration Potassium Chloride/Dextrose/Sod Cl 1,000 mls @ 150 mls/hr 04/28/24 21:45 Kcl 20 Meq In D5w-Ns IV 05/28/24 21:44 .Q6H40M [facility] Ondansetron HCl 4 mg 04/28/24 21:35 Ondansetron 4mg/2ml Vial IV 05/28/24 21:34 Q4HP PRN Nausea And Vomiting Prochlorperazine Edisylate 5 mg 04/28/24 21:41 Prochlorperazine 10mg/2ml Vial IV 05/28/24 21:40 Q6 PRN Nausea And Vomiting Sodium Chloride 10 ml 04/28/24 19:59 04/28/24 20:06 Sodium Chloride 0.9% 10ml Vial IV 05/28/24 19:58 10 ml NEEDED PRN Administration dilute protonix Discontinued Medications Generic Name Dose Route Start Last Admin Trade Name Freq PRN Reason Stop Dose Admin Droperidol 2.5 mg 04/28/24 21:21 04/28/24 21:23 Droperidol 5mg/2ml Vial IV 04/28/24 21:22 2.5 mg ONCE ONE Administration Sodium Chloride 1,000 mls @ 150 mls/hr 04/28/24 22:00 Sod Chlor 0.9% 1000ml Bag IV 05/28/24 21:59 .Q6H40M [facility] Ketorolac Tromethamine 15 mg 04/28/24 20:00 04/28/24 20:06 Ketorolac 30mg/Ml Vial IV 04/28/24 20:01 15 mg ONCE ONE Administration Ondansetron HCl 4 mg 04/28/24 19:59 04/28/24 20:04 Ondansetron 4mg/2ml Vial IV 04/28/24 20:00 4 mg ONCE ONE Administration Pantoprazole Sodium 40 mg 04/28/24 19:59 04/28/24 20:05 Pantoprazole 40mg Vial IV 04/28/24 20:00 40 mg ONCE ONE Administration ORDERS Category Date Time Status Nutrition Consult [CONS] Routine Cons 04/28/24 21:36 Active XR chest portable Stat Exams 04/28/24 19:58 Completed Acetone, Serum (Rapid) Stat Lab 04/28/24 20:00 Results Basic Metabolic Panel Q4H Lab 04/28/24 21:45 Ordered Basic Metabolic Panel Q4H Lab 04/29/24 01:45 Ordered Basic Metabolic Panel Q4H Lab 04/29/24 05:45 Ordered Basic Metabolic Panel Q4H Lab 04/29/24 09:45 Ordered Basic Metabolic Panel Q4H Lab 04/29/24 13:45 Ordered Basic Metabolic Panel Q4H Lab 04/29/24 17:45 Ordered CBC w/Auto Diff [Complete Blood Count Auto Diff] AMLAB Lab 04/29/24 06:00 Ordered Complete Blood Count Auto Diff Stat Lab 04/28/24 20:00 Results Comprehensive Metabolic Panel Stat Lab 04/28/24 20:00 Results HIV (1&2) Antibody Rapid Stat Lab 04/28/24 20:00 Completed Hemoglobin A1C Stat Lab 04/28/24 20:00 Completed Hep C Ab with Reflex to RNA Stat Lab 04/28/24 20:00 Received Lactic Acid Stat Lab 04/28/24 20:00 Completed Lactic Acid Timed Lab 04/29/24 00:00 Ordered Lipase Stat Lab 04/28/24 20:00 Completed Magnesium Q4H Lab 04/28/24 21:45 Ordered Magnesium Q4H Lab 04/29/24 01:45 Ordered Magnesium Q4H Lab 04/29/24 05:45 Ordered Magnesium Q4H Lab 04/29/24 09:45 Ordered Magnesium Q4H Lab 04/29/24 13:45 Ordered Magnesium Q4H Lab 04/29/24 17:45 Ordered Magnesium Stat Lab 04/28/24 20:00 Results Phosphorous Q4H Lab 04/28/24 21:45 Ordered Phosphorous Q4H Lab 04/29/24 01:45 Ordered Phosphorous Q4H Lab 04/29/24 05:45 Ordered Phosphorous Q4H Lab 04/29/24 09:45 Ordered Phosphorous Q4H Lab 04/29/24 13:45 Ordered Phosphorous Q4H Lab 04/29/24 17:45 Ordered Phosphorous Stat Lab 04/28/24 20:00 Results T4 (Thyroxine) Stat Lab 04/28/24 20:00 Results TSH [Thyroid Stimulating Hormone] Stat Lab 04/28/24 20:00 Results Trop I [Troponin I] Stat Lab 04/28/24 20:00 Completed Troponin I Q3H Lab 04/28/24 23:00 Ordered Troponin I Q3H Lab 04/29/24 02:00 Ordered UDS [Drug Screen,Urine] Stat Lab 04/28/24 19:55 Completed Urinalysis and Microscopic Stat Lab 04/28/24 19:55 Completed Blood Culture Stat Micro 04/28/24 20:00 Received Urine Culture Stat Micro 04/28/24 19:55 Received VBG [Venous Blood Gas] AMLAB RT 04/29/24 06:00 Ordered VBG [Venous Blood Gas] Stat RT 04/28/24 21:41 Ordered Venous Blood Gas Stat RT 04/28/24 19:58 Completed ECG Data Tracing #1: I reviewed this ECG and interpreted as documented below: Sinus bradycardia with a ventricular rate of 53 bpm. Occasional premature complexes. No acute ST changes concerning for ischemia. ECG initial impression date: 04/28/24 ECG initial impression time: 20:18 Medical Decision Narrative: In summary, this patient is a 23-year-old male presenting to the Emergency Department for evaluation of nausea, vomiting, abdominal pain and concerns that he is going into DKA. Differential diagnoses considered include but are not limited to DKA, HHS, gastritis, gastroenteritis, cyclic vomiting syndrome, gastroparesis, pancreatitis. Ruling out the most morbid conditions drove assessment. It should be noted patient's history includes insulin-dependent diabetes and marijuana use with cyclic vomiting syndrome and diabetic gastroparesis which likely are not at goal therapy. This complicates all aspects of care by increasing patient's risk for morbidity. I reviewed patient's past medical records and noted previous evaluations in the past by primary care as well as several ED visits for abdominal pain. On exam, the patient is sitting upright in no acute distress with normal vital signs on cardiac telemetry. He is neurologically intact. He has mild generalized abdominal tenderness but no rebound or guarding. workup included broad lab evaluation to evaluate for infectious, metabolic, cardiac causes of his symptoms. Patient was given 2 L bolus of IV fluids as is not able to tolerate oral intake at this time as well as IV pantoprazole and Zofran for symptomatic improvement. I independently interpreted x-ray prior to the radiologist read and noted no acute focal consolidation concerning for pneumonia. Please see their read for final interpretation. Labs were obtained that demonstrated hyperglycemia with ketosis and elevated anion gap consistent with DKA. He also has mild hypomagnesemia, for which IV replacement was ordered. He was given 2 L bolus of IV fluids as well as started on 150 mL/h normal saline. He was started on insulin drip. At this time, doubt sepsis is a trigger as I feel he likely is triggered by improper insulin use and is not checking his blood sugar at home. Blood cultures were nonetheless sent and are pending.. On reassessment, the patient had continued nausea and vomiting but responded well to droperidol. Ultimately, I feel he is stable and ready for admission for continued management of DKA. I had an interactive discussion with the hospitalist who admitted the patient in stable condition Critical Care Critical Care Time Critical Care Time: Yes Attestation: On 04/28/24, the high probability of a clinically significant, sudden or life threatening deterioration of the following system(s) required my full and direct attention, intervention and personal management. The time I documented below is in addition to time spent performing reported procedures but includes the following listed in this critical care notation. Total Time Total Critical Care Time: 30
[2024-04-28] MEDS: 0.9 % SODIUM CHLORIDE 1000ML 2,000 ML 999 ML IV (20:03)
[2024-04-28] MEDS: ONDANSETRON 4MG/2ML VIAL 4 MG IV (20:04)
[2024-04-28 20:05] LABS: Microscopic, Urine URINE MICROSCOPIC (MICROSCOPIC)
[2024-04-28] MEDS: PANTOPRAZOLE 40MG VIAL 40 MG IV (20:05)
[2024-04-28] MEDS: KETOROLAC 30MG/ML VIAL 15 MG IV (20:06)
[2024-04-28] MEDS: SODIUM CHLORIDE 0.9% 10ML VIAL 10 ML IV (20:06)
--- NOTE | 2024-04-28 20:10 | ECG_ITS ---
APPROVED REPORT Exam: Resting ECG HR:53 bpm ECG Measurements Heart Rate 53 AXES AL 139 P 34 QRSd 84 QRS 82 QT 450 T 78 QTc 432 Conclusion SINUS BRADYCARDIA WITH OCCASIONAL SUPRAVENTRICULAR PREMATURE COMPLEXES BORDERLINE ECG Electronically signed by : LUDIVINA ROD, 04/28/2024 23:17:44
[2024-04-28 20:14] LABS: VBG Base Excess -8.7 mmol/L (-2.4-2.3); VBG HCO3 18.6 mmol/L (23-30); VBG PCO2 43.8 mmol/L (35-51); VBG PH 7.25 mmol/L (7.31-7.41); VBG PO2 43.8 mmol/L (28-40); VBG Total CO2 19.9 mmol/L (23-27)
[2024-04-28 20:17] LABS: Lactate Venous 4.6 mmol/L (0.4-2.0)
--- NOTE | 2024-04-28 20:19 | PC.NURSE ---
respiratory called VBG results
[2024-04-28 20:30] VITALS: BP 117/80; PULSE 63; O2SAT 95
[2024-04-28 20:30] LABS: Appearance,Urine CLEAR (Clear); Bilirubin,Urine Negative (Negative); Blood, Urine Negative (Negative); Color,Urine YELLOW (Yellow); Glucose,Urine (UA) 3+ (Negative); Ketones,Urine 3+ (Negative); Leukocyte Esterase,Urine Negative (Negative); Nitrate,Urine Negative (Negative); Protein,Urine Negative (Negative); Urobilinogen,Urine 0.2 EU/dl (0.2)
[2024-04-28 20:37] LABS: Basophils # 0.1 K/mm3 (0-0.2); Basophils % 0.5 % (0.1-2.0); Hematocrit 45.9 % (42.0-52.0); Hemoglobin 15.3 g/dL (14.1-18.0); Lymphocytes # 1.1 K/mm3 (0.7-4.5); Mean Corpuscular HGB Conc 33.3 g/dL (31.8-35.4); Mean Corpuscular Hemoglobin 29.6 pg (27.0-31.2); Mean Corpuscular Volume 88.9 fl (80-94); Mean Platelet Volume 7.1 fl (7.4-10.4); Monocytes # 0.5 K/mm3 (0.1-1.0); Monocytes % 3.5 % (1.7-9.3); Neutrophils # 13.3 K/mm3 (1.8-7.8); Neutrophils % 88.9 % (37.0-80.0); Platelet Count 314 K/mm3 (142-424); Red Blood Count 5.17 M/mm3 (4.60-6.20); Red Cell Distribution Width 13.5 % (11.5-17.5); White Blood Count 14.9 K/mm3 (4.8-10.8)
[2024-04-28 20:39] LABS: MANUAL DIFFERENTIAL MANUAL DIFFERENTIAL (MANUAL DIFF)
[2024-04-28 20:40] LABS: Alanine Aminotransferase 43 U/L (12-78); Albumin Level 5.3 g/dl (3.5-5.0); Albumin/Globulin Ratio 2.4 (1.1-1.8); Alkaline Phosphatase 90 U/L (38-126); Anion Gap 19.7 mEq/L (5-15); Aspartate Amino Transferase 44 U/L (17-59); Bilirubin,Total 1.1 mg/dl (0.2-1.3); Blood Urea Nitrogen 17 mg/dl (9-20); Calcium 10.1 mg/dl (8.4-10.2); Carbon Dioxide 19 mmol/L (22.0-30.0); Chloride 100 mmol/L (98-107); Creatinine Clearance Estimated 125 mL/min (50-200); Estimated Glomerular Filt Rate 139 ml/min (>60); GFR (African American) 168 ML/MIN (>60); Globulin 2.2 g/dL (1.3-3.2); Magnesium 1.5 mg/dl (1.6-2.3); Phosphorous 5.9 mg/dl (2.5-4.5); Potassium 4.7 mmoL/L (3.5-5.1); Sodium 134 mmol/L (136-145); Total Protein,Serum 7.5 g/dl (6.3-8.2)
[2024-04-28 20:43] LABS: Bacteria,Urine Trace /lpf
[2024-04-28 20:54] LABS: Glucose 502 mg/dl (74-100)
[2024-04-28 20:58] LABS: Barbiturates Screen,Urine Negative ng/ml (<200); Benzodiazepines Screen,Urine Negative ng/ml (<200)
[2024-04-28 20:59] LABS: Amphetamine/Metha Screen,Urine Negative ng/ml (<1000)
[2024-04-28 21:00] VITALS: BP 128/77; PULSE 70; O2SAT 96
[2024-04-28 21:00] LABS: Cocaine Screen,Urine Negative ng/ml (<300); Methadone Screen,Urine Negative ng/ml (<300)
[2024-04-28 21:01] LABS: Cannabinoid Screen,Urine Positive ng/ml (<50); Phencyclidine Screen,Urine Negative ng/ml (<25)
[2024-04-28 21:02] LABS: Opiate Screen,Urine Negative ng/ml (<300)
[2024-04-28 21:18] LABS: Lipase 43 U/L (23-300)
[2024-04-28 21:23] LABS: Acetone, Serum (Rapid) Small (None Detect)
[2024-04-28] MEDS: droPERidol 5MG/2ML VIAL 2.5 MG IV (21:23)
[2024-04-28 21:25] LABS: HIV (1&2) Antibody Rapid NONREACTIVE (NONREACTIVE)
[2024-04-28 21:28] LABS: T4 (Thyroxine) 11.5 ug/dl (5.53-11.0)
[2024-04-28 21:36] LABS: Hemoglobin A1C 9.9 % (4.0-6.0); Troponin I < 0.01 ng/ml (0.00-0.034)
[2024-04-28] MEDS: INSULIN REGULAR, HUMAN 100 UNIT in 0.9 % SODIUM CHLORIDE 100 ML 5.05 UNIT IV (21:48)
[2024-04-28] MEDS: MAGNESIUM SULFATE IN WATER 2 GM/50 ML PIGGYBACK IV (21:52)
--- NOTE | 2024-04-28 22:02 | PC.NURSE ---
rounded on patient, no needs at this time. pt to be admitted to floor
[2024-04-28 22:04] LABS: Anisocytosis 1+; Lymphocytes % 8 % (10-50); Neutrophils % 86 % (42-76); RBC Morphology Normal; Total Cells Counted 100
[2024-04-28] MEDS: 0.9% NaCl w/20mEq KCL 1,000 ML 150 ML IV ×3 (22:13→23:37)
[2024-04-28 22:16] LABS: Chloride 106 mmol/L (98-107); Sodium 139 mmol/L (136-145)
[2024-04-28 22:17] LABS: Potassium 4.8 mmoL/L (3.5-5.1)
[2024-04-28 22:19] LABS: Blood Urea Nitrogen 16 mg/dl (9-20); Creatinine Clearance Estimated 146 mL/min (50-200); Estimated Glomerular Filt Rate 166 ml/min (>60); GFR (African American) 200 ML/MIN (>60)
[2024-04-28 22:20] LABS: Anion Gap 22.8 mEq/L (5-15); Calcium 8.5 mg/dl (8.4-10.2); Carbon Dioxide 15 mmol/L (22.0-30.0); Magnesium 1.5 mg/dl (1.6-2.3); Phosphorous 4.6 mg/dl (2.5-4.5)
[2024-04-28 22:27] LABS: VBG HCO3 13.5 mmol/L (23-30); VBG Oxygen Saturation 96.1 % (50-70); VBG PCO2 32.7 mmol/L (35-51); VBG PH 7.23 mmol/L (7.31-7.41); VBG PO2 92.3 mmol/L (28-40); VBG Total CO2 14.5 mmol/L (23-27)
[2024-04-28 22:28] LABS: Lactate Venous 2.8 mmol/L (0.4-2.0)
[2024-04-28 22:36] LABS: Glucose 432 mg/dl (74-100)
--- NOTE | 2024-04-28 22:49 | P.HP_ITS ---
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 He reports that he ran out of his fingerstick supplies and has been unable to check his blood sugar. Reports he has a cont inuous glucose monitor in his arm but he also has not gotten a refill on that. Reports he has not been checking his blood sugar for the last several days. States he has been been trying to Wing it . Today he reports having generalized abdominal pain, nausea, vomiting. Does report some possible blood- tinged color in his emesis but reports he has had multiple episodes of vomiting today. Denies any fever, productive cough, dysuria. No other issues reported. No focal neurodeficits noted. Denies any recent weight gain or weight loss, no swelling in his legs or feet. Does not take any blood thinners. Denies any alcohol use, endorses marijuana use. Workup in the ER showed elevated white count of 14.9 thousand, glucose elevated at 502, anion gap at 19.7. Mag a bit low at 1.5, Phos at 5.9. A1c at 9.9. VBG showed a pH of 7.25, pO2 of 43, pCO2 of 43, with a bicarb of 18. Lactic acid was 4.6. UDS was positive for marijuana. Patient was given a 2 L IV fluid bolus in the ER, insulin drip was initiated, mag was replaced. He was given antiemetics. Chest x-ray did not show any focal consolidation. UA was noninfectious. Patient will be admitted to the hospitalist service for DKA. [facility] Disclaimer: The information contained in this section may have been updated after the jonathon arango was seen, as this information can be updated by other users. Medical History Vitamin D deficiency Vitamin B12 deficiency Diabetes mellitus type 1 Hyperthyroidism Family History Other Cancer Diabetes Hypertension Social History Smoking Status: Current every day smoker alcohol intake: never current occupational status: unemployed Travel in the last 8 weeks: None Other Medical History Have you received the Flu Vaccine for this season: No Have you received the Pneumonia Vaccine: No Review of Systems ENT Ears, Nose, Mouth, and Throat: Reports system reviewed and no additional complaints, except as documented *Cardiovascular Cardiovascular: Reports system reviewed and no additional complaints, except as documented *Respiratory Respiratory: Reports system reviewed and no additional complaints, except as documented *Gastrointestinal Gastrointestinal: Reports nausea and Reports vomiting *Genitourinary Genitourinary: Reports system reviewed and no additional complaints, except as documented *Musculoskeletal Musculoskeletal: Reports system reviewed and no additional complaints, except as documented Integumentary/Breasts Skin/Breast: Reports system reviewed and no additional complaints, except as documented *Neurologic Neurologic: Reports system reviewed and no additional complaints, except as documented Psychiatric Psychiatric: Reports system reviewed and no additional complaints, except as documented Endocrine Endocrine: Reports system reviewed and no additional complaints, except as documented Meds Home Medications and Allergies Home Medications ?Medication ?Instructions ?Recorded ?Confirmed ?Type insulin lispro 200 unit/mL (3 mL) 10 unit (0.05 mL) SQ TID 30 days 03/13/24 04/03/24 Rx subcutaneous pen (Humalog KwikPen #12 mL U-200 Insulin) metoclopramide HCl 10 mg tablet 10 mg PO ACHS PRN nausea and 03/13/24 04/03/24 Rx vomiting 30 days #120 tabs insulin glargine U-300 conc 300 30 unit (0.1 mL) SQ HS 30 days #3 03/20/24 04/03/24 Rx unit/mL (3 mL) subcutaneous pen mL pen needle, diabetic 32 gauge x #100 ea 03/20/24 04/03/24 Rx 1/4 (BD Ultra-Fine Micro Pen Needle) levofloxacin 500 mg tablet 500 mg PO Q24H #10 tabs 04/03/24 04/03/24 Rx cholecalciferol (vitamin D3) 1,250 1,250 mcg PO WEEKLY #8 caps 04/04/24 Rx mcg (50,000 unit) capsule cyanocobalamin (vitamin B-12) 1,000 mcg PO DAILY #90 tabs 04/04/24 Rx 1,000 mcg tablet New Prescriptions to Start Prescriptions: Allergies Allergy/AdvReac Type Severity Reaction Status Date / Time No Known Allergies Allergy Verified 04/03/24 13:16 Exam Data for Last 24 hours Vital signs and Labs for Last 24 Hours: Temp Pulse Resp BP Pulse Ox 98.9 F 70 14 128/77 96 04/28/24 19:52 04/28/24 21:00 04/28/24 19:52 04/28/24 21:00 04/28/24 21:00 Laboratory Results - last 24 hr 04/28/24 19:55: Urine Color Yellow, Urine Appearance Clear, Urine pH 6.0, Ur Specific [place] 1.020, Urine Protein Negative, Urine Glucose (UA) 3+, Urine Ketones 3+, Urine Blood Negative, Urine Nitrate Negative, Urine Bilirubin Negative, Urine Urobilinogen 0.2, Ur Leukocyte Esterase Negative, Urine RBC None, Urine WBC None, Ur Squamous Epith Cells 3-5, Urine Bacteria Trace, Urine Opiates Screen Negative, Urine Methadone Screen Negative, Ur Barbituates Screen Negative, Ur Phencyclidine Scrn Negative, Ur Amphetamines Screen Negative, U Benzodiazepines Scrn Negative, Urine Cocaine Screen Negative, U Marijuana (THC) Screen Positive H 04/28/24 19:58: VBG pH 7.25 L, VBG pCO2 43.8, VBG pO2 43.8 H, VBG HCO3 18.6 L, V BG Total CO2 19.9 L, VBG O2 Saturation 76.0 H, VBG Base Excess -8.7 L, VBG Lactic Acid 4.6 H 04/28/24 20:00: WBC 14.9 H, RBC 5.17, Hgb 15.3, Hct 45.9, MCV 88.9, MCH 29.6, MCHC 33.3, RDW 13.5, Plt Count 314, MPV 7.1 L, Neut % (Auto) 88.9 H, Lymph % (Auto) 7.0 L, [place] % (Auto) 3.5, Eos % (Auto) 0.0 L, Baso % (Auto) 0.5, Neut # (Auto) 13.3 H, Lymph # (Auto) 1.1, [place] # (Auto) 0.5, Eos # (Auto) 0.0, Baso # (Auto) 0.1, Total Counted 100, Neutrophils % (Manual) 86 H, Band Neutrophils % 1.0, Lymphocytes % (Manual) 8 L, Atypical Lymphs % 3.0, Metamyelocytes % 2.0 H, RBC Morphology Normal, Anisocytosis 1+, Sodium 134 L, Potassium 4.7, Chloride 100, Carbon Dioxide 19 L, Anion Gap 19.7 H, BUN 17, Creatinine 0.70, Estimated Creat Clear 125, Estimated GFR 139, Est GFR ( Amer) 168, Glucose 502 H*, Hemoglobin A1c 9.9 H, Lactate 4.0 H, Calcium 10.1, Phosphorus 5.9 H, Magnesium 1.5 L, Total Bilirubin 1.1, AST 44, ALT 43, Alkaline Phosphatase 90, Troponin I < 0.01, Total Protein 7.5, Albumin 5.3 H, Globulin 2.2, Albumin/Globulin Ratio 2.4 H, Lipase 43, Thyroxine (T4) 11.5 H, Acetone Level Small, HIV 1&2 Antibody Rapid Nonreactive 04/28/24 21:41: VBG pH 7.23 L, VBG pCO2 32.7 L, VBG pO2 92.3 H, VBG HCO3 13.5 L, VBG Total CO2 14.5 L, VBG O2 Saturation 96.1 H, VBG Base Excess -14.0 L, VBG Lactic Acid 2.8 H 04/28/24 21:55: Sodium 139, Potassium 4.8, Chloride 106, Carbon Dioxide 15 L, Anion Gap 22.8 H, BUN 16, Creatinine 0.60 L, Estimated Creat Clear 146, Estimated GFR 166, Est GFR ( Amer) 200, Glucose 432 H*, Calcium 8.5, Phosphorus 4.6 H, Magnesium 1.5 L I & O for Last 24 hours: Intake & Output 04/25/24 04/26/24 04/27/24 04/28/24 23:59 23:59 23:59 23:59 Weight 54.431 kg Constitutional Constitutional: no acute distress *Routine HEENT Exam Head: Present normocephalic Eye: Present EOMI and PERRL ENT: Present mucous membranes moist *Routine Neck Exam Neck: Present supple; Absent lymphadenopathy *Routine Respiratory Exam Respiratory: Present CTA bilaterally *Routine Cardiovascular Exam Cardiovascular: Present RRR (HR in the 110s) and tachycardia *Routine Abdominal Exam Abdominal: Present soft and normoactive bowel sounds; Absent tenderness *Routine Rectal Exam Rectal:: deferred *Routine Genitalia Exam Genitalia:: deferred *Routine Extremities Exam Extremities: Absent cyanosis, clubbing or edema *Routine Skin Exam Skin: Present warm; Absent rash *Routine Neurological Exam Neurological: Present alert and oriented X3 Assessment and Plan *Assessment and plan (1) DKA, type 1: Status: Acute Category: Medical Code(s): E10.10 - Type 1 diabetes mellitus with ketoacidosis without coma (2) Non compliance with medical treatment: Status: Acute Category: Medical Code(s): Z91.199 - Patient's noncompliance with other medical treatment and regimen due to unspecified reason (3) Hypomagnesemia: Status: Acute Category: Medical Code(s): E83.42 - Hypomagnesemia (4) Nausea & vomiting: Status: Acute Category: Medical Code(s): R11.2 - Nausea with vomiting, unspecified Plan Assessment: This is a 23-year-old male being admitted for DKA. On my exam, patient has drowsy, lying in bed, easily arousable. Mildly tachycardic, in no acute distress. Plan: Admit to inpatient-ICU DKA Nausea/vomiting Hypomagnesemia -Insulin drip as per protocol -Every 4 hour BMP -N.p.o. -Repeat lactic acid -Repeat VBG in the morning -Continue maintenance IV fluids -Does appear that patient takes 30 units of Lantus at night, 10 units of lispro 3 times daily with meals -A1c is 9.9 -Antiemetics as needed, droperidol in the ER certainly seem to help the best -Replace electrolytes as per protocol Tobacco abuse -Nicotine patch as needed -Tobacco cessation counseling given Marijuana abuse -Cessation counseling given, explained again that decreasing marijuana usage with help with his hyperemesis DVT prophylaxis: Lovenox CODE STATUS: Full code Surrogate decision maker: Estee [phone] Skin: Low risk Estimated length of stay: Greater than 2 midnights Case discussed with nurse practitioner. Agree with exam findings and care plan as documented.
[2024-04-28 22:53] VITALS: BP 125/89; PULSE 62; RESP 16; TEMP 36.8; O2SAT 97
[2024-04-28 23:00] VITALS: BP 131/65; PULSE 62; RESP 14; TEMP 36.8; O2SAT 99
[2024-04-28 23:36] VITALS: BMI 17.4
[2024-04-28 23:38] LABS: Troponin I < 0.01 ng/ml (0.00-0.034)
[2024-04-28 23:41] LABS: POC Glucose,Bedside 334 (70-110)
--- NOTE | 2024-04-28 23:54 | PC.NURSE ---
Patient has not been taking his insulin at home because of poor socioeconomic issues. I explained to patient that someone with case management will speak with him to assist in getting his home medications.
[2024-04-29] VITALS (10 sets, daily range): BP systolic 91–146; BP diastolic 52–77; PULSE 63–107; RESP 13–18; TEMP 36.6–37.1; O2SAT 96–100; BMI 17.9
[2024-04-29 00:16] LABS: Reflex Lactic Add Lactic Reflex
[2024-04-29 00:25] LABS: Lactic Acid 4.4 mmol/L (0.7-2.1)
[2024-04-29 00:26] LABS: POC Glucose,Bedside 201 (70-110)
--- NOTE | 2024-04-29 00:27 | PC.NURSE ---
Notified Antoni LOUISE that lactic went from 4.0 to 4.4; Verbal order to give 500mL NS bolus
[2024-04-29] MEDS: 0.9 % SODIUM CHLORIDE 1000ML 500 ML 999 ML IV (00:33)
[2024-04-29] MEDS: D5W/0.9% NaCl w/20mEq KCL 1,000 ML 75 ML IV (01:13)
[2024-04-29 01:15] LABS: POC Glucose,Bedside 138 (70-110)
[2024-04-29 01:21] LABS: Chloride 114 mmol/L (98-107); Sodium 142 mmol/L (136-145)
[2024-04-29 01:24] LABS: Blood Urea Nitrogen 17 mg/dl (9-20); Creatinine Clearance Estimated 116 mL/min (50-200); Estimated Glomerular Filt Rate 139 ml/min (>60); GFR (African American) 168 ML/MIN (>60)
[2024-04-29 01:25] LABS: Calcium 8.2 mg/dl (8.4-10.2); Carbon Dioxide 23 mmol/L (22.0-30.0); Glucose 144 mg/dl (74-100); Magnesium 2.3 mg/dl (1.6-2.3)
[2024-04-29 01:27] LABS: Phosphorous 1.2 mg/dl (2.5-4.5)
--- NOTE | 2024-04-29 01:35 | PC.NURSE ---
Addendum entered by Hansel Wan RN 04/29/24 02:06: ASPEN was also notified of critical Phosphorus level reported from lab Original Note: Antoni SANDERSN notified glucose <200 and Anion Gap <12-- New orders being placed for maintenance fluids, long acting and SS insulin. Insulin gtt will be discontinued in 1 hour
[2024-04-29] MEDS: 0.9 % SODIUM CHLORIDE 1000ML 1,000 ML 150 ML IV ×3 (01:40→19:40)
[2024-04-29 01:41] LABS: Troponin I < 0.01 ng/ml (0.00-0.034)
[2024-04-29] MEDS: INSULIN GLARGINE 100 UNITS/ML 10ML VIAL 10 UNIT SQ ×2 (01:45→07:50)
[2024-04-29 03:17] LABS: Reflex Lactic Add Lactic Reflex
[2024-04-29 03:29] LABS: Lactic Acid Follow Up (RFLX 1) 0.9 mmol/L (0.7-2.1)
[2024-04-29 03:32] LABS: Thyroid Stimulating Hormone 0.36 uIU/mL (0.465-4.68)
--- NOTE | 2024-04-29 04:26 | PC.NURSE ---
Patient was admitted to ICU r/t DKA. He has since been transitioned off of DKA protocol with long-acting with SSACHS orders placed. Patient has slept since being admitted. He awakens easily and is a/o x3. Heart, lungs, and abdominal sounds WNL. Patient has not attempted PO fluids. VSS at this time. No acute concerns or needs voiced. ICU care continues.
--- NOTE | 2024-04-29 05:33 | PC.NURSE ---
Spoke to Antoni LOUISE to downgrade from ICU
[2024-04-29 06:05] LABS: Basophils # 0.1 K/mm3 (0-0.2); Basophils % 0.4 % (0.1-2.0); Eosinophils % 0.1 % (0.1-12.0); Hematocrit 33.9 % (42.0-52.0); Lymphocytes # 1.9 K/mm3 (0.7-4.5); Lymphocytes % 12.8 % (10-50); Mean Corpuscular HGB Conc 36.1 g/dL (31.8-35.4); Mean Corpuscular Hemoglobin 32.1 pg (27.0-31.2); Mean Corpuscular Volume 88.8 fl (80-94); Monocytes # 0.9 K/mm3 (0.1-1.0); Neutrophils % 80.7 % (37.0-80.0); Platelet Count 278 K/mm3 (142-424); Red Blood Count 3.82 M/mm3 (4.60-6.20); White Blood Count 14.8 K/mm3 (4.8-10.8)
[2024-04-29 06:07] LABS: POC Glucose,Bedside 190 (70-110)
[2024-04-29 06:07] LABS: Chloride 112 mmol/L (98-107); Potassium 4.3 mmoL/L (3.5-5.1); Sodium 140 mmol/L (136-145)
[2024-04-29] MEDS: humaLOG 100 UNITS/ML 10ML VIAL (SSI) SQ ×2 (06:09→21:05)
[2024-04-29 06:10] LABS: Anion Gap 16.3 mEq/L (5-15); Blood Urea Nitrogen 18 mg/dl (9-20); Calcium 8.1 mg/dl (8.4-10.2); Carbon Dioxide 16 mmol/L (22.0-30.0); Creatinine Clearance Estimated 116 mL/min (50-200); Estimated Glomerular Filt Rate 139 ml/min (>60); GFR (African American) 168 ML/MIN (>60); Glucose 194 mg/dl (74-100); Phosphorous 3.1 mg/dl (2.5-4.5)
[2024-04-29 06:11] LABS: Magnesium 1.9 mg/dl (1.6-2.3)
[2024-04-29 06:13] LABS: Hemoglobin 12.4 g/dL (14.1-18.0)
[2024-04-29 06:20] LABS: Lactate Venous 1.3 mmol/L (0.4-2.0); VBG Base Excess -9.1 mmol/L (-2.4-2.3); VBG HCO3 16.7 mmol/L (23-30); VBG Oxygen Saturation 97.7 % (50-70); VBG PH 7.34 mmol/L (7.31-7.41); VBG PO2 105.1 mmol/L (28-40); VBG Total CO2 17.7 mmol/L (23-27)
[2024-04-29] MEDS: 0.9 % SODIUM CHLORIDE 1000ML 1,000 ML 999 ML IV (07:50)
[2024-04-29] MEDS: ONDANSETRON 4MG/2ML VIAL 4 MG IV ×2 (07:55→12:59)
[2024-04-29] MEDS: SODIUM PHOSPHATE 15 MMOL in 0.9 % SODIUM CHLORIDE 250 ML 63.75 MMOL IV (08:56)
[2024-04-29] MEDS: ENOXAPARIN 40MG/0.4ML SYRINGE 40 MG SQ (08:59)
--- NOTE | 2024-04-29 09:31 | HMH.PHAINT1 ---
Pharmacy Intervention Comments: Home medications verified using list from pharmacy and interview with patient.
[2024-04-29] MEDS: PROCHLORPERAZINE 10MG/2ML VIAL 5 MG IV ×2 (09:45→20:41)
[2024-04-29 10:14] LABS: Basophils # 0.1 K/mm3 (0-0.2); Basophils % 0.3 % (0.1-2.0); Eosinophils % 0.1 % (0.1-12.0); Hematocrit 32.7 % (42.0-52.0); Hemoglobin 12.3 g/dL (14.1-18.0); Lymphocytes % 14.4 % (10-50); Mean Corpuscular HGB Conc 37.7 g/dL (31.8-35.4); Mean Corpuscular Hemoglobin 33.4 pg (27.0-31.2); Mean Corpuscular Volume 88.7 fl (80-94); Mean Platelet Volume 6.8 fl (7.4-10.4); Monocytes # 0.9 K/mm3 (0.1-1.0); Monocytes % 6.7 % (1.7-9.3); Neutrophils % 78.5 % (37.0-80.0); Platelet Count 261 K/mm3 (142-424); Red Blood Count 3.68 M/mm3 (4.60-6.20); Red Cell Distribution Width 13.8 % (11.5-17.5)
[2024-04-29 10:19] LABS: Chloride 114 mmol/L (98-107)
[2024-04-29 10:20] LABS: Potassium 3.7 mmoL/L (3.5-5.1); Sodium 140 mmol/L (136-145)
[2024-04-29 10:22] LABS: Blood Urea Nitrogen 19 mg/dl (9-20); Creatinine Clearance Estimated 136 mL/min (50-200); Estimated Glomerular Filt Rate 166 ml/min (>60); GFR (African American) 200 ML/MIN (>60)
[2024-04-29 10:23] LABS: Anion Gap 13.7 mEq/L (5-15); Calcium 8.1 mg/dl (8.4-10.2); Carbon Dioxide 16 mmol/L (22.0-30.0); Glucose 130 mg/dl (74-100); Magnesium 1.9 mg/dl (1.6-2.3); Phosphorous 2.2 mg/dl (2.5-4.5)
[2024-04-29 10:53] LABS: POC Glucose,Bedside 120 (70-110)
[2024-04-29 14:12] LABS: Chloride 110 mmol/L (98-107)
[2024-04-29 14:13] LABS: Potassium 3.5 mmoL/L (3.5-5.1); Sodium 143 mmol/L (136-145)
[2024-04-29 14:15] LABS: Blood Urea Nitrogen 19 mg/dl (9-20); Creatinine Clearance Estimated 136 mL/min (50-200); Estimated Glomerular Filt Rate 166 ml/min (>60); GFR (African American) 200 ML/MIN (>60)
[2024-04-29 14:16] LABS: Anion Gap 15.5 mEq/L (5-15); Calcium 8.5 mg/dl (8.4-10.2); Carbon Dioxide 21 mmol/L (22.0-30.0); Glucose 119 mg/dl (74-100); Magnesium 1.9 mg/dl (1.6-2.3); Phosphorous 2.7 mg/dl (2.5-4.5)
[2024-04-29 17:31] LABS: POC Glucose,Bedside 115 (70-110)
[2024-04-29 18:20] LABS: Glucose 200 mg/dl (74-100); Magnesium 1.8 mg/dl (1.6-2.3); Potassium 3.2 mmoL/L (3.5-5.1); Sodium 132 mmol/L (136-145)
[2024-04-29 18:21] LABS: Blood Urea Nitrogen 17 mg/dl (9-20); Carbon Dioxide 22 mmol/L (22.0-30.0); Creatinine Clearance Estimated 136 mL/min (50-200); Estimated Glomerular Filt Rate 166 ml/min (>60); GFR (African American) 200 ML/MIN (>60); Phosphorous 2.1 mg/dl (2.5-4.5)
[2024-04-29 18:29] LABS: Anion Gap 3.2 mEq/L (5-15); Chloride 110 mmol/L (98-107)
--- NOTE | 2024-04-29 18:40 | PC.NURSE ---
PT HAS DONE BETTER THIS AFTERNOON. LESS NAUSEA AND VOMITING. PT STATES THAT HE FEELS BETTER. VSS. TOLERATING SOME SPIS AND SMALL BITES.
[2024-04-29 21:14] LABS: POC Glucose,Bedside 160 (70-110)
--- NOTE | 2024-04-29 21:17 | P.PN_ITS ---
Subjective *Date: 04/29/24 *Time: 21:17 Interval history: Improving, still having nausea with food but no vomiting. Exam Data for Last 24 hours Vital signs and Labs for Last 24 Hours: Temp Pulse Resp BP Pulse Ox O2 Del Method 98 F 87 18 146/77 H 100 Room Air 04/29/24 16:00 04/29/24 16:00 04/29/24 16:00 04/29/24 16:00 04/29/24 16:00 04/29/24 18:44 Laboratory Results - last 24 hr 04/28/24 20:00: Total Counted 100, Neutrophils % (Manual) 86 H, Band Neutrophils % 1.0, Lymphocytes % (Manual) 8 L, Atypical Lymphs % 3.0, Metamyelocytes % 2.0 H , RBC Morphology Normal, Anisocytosis 1+, Hemoglobin A1c 9.9 H, Lactate 4.0 H, Troponin I < 0.01, Lipase 43, TSH 0.36 L, Thyroxine (T4) 11.5 H, Acetone Level Small, HIV 1&2 Antibody Rapid Nonreactive 04/28/24 21:41: VBG pH 7.23 L, VBG pCO2 32.7 L, VBG pO2 92.3 H, VBG HCO3 13.5 L, VBG Total CO2 14.5 L, VBG O2 Saturation 96.1 H, VBG Base Excess -14.0 L, VBG Lactic Acid 2.8 H 04/28/24 21:55: Sodium 139, Potassium 4.8, Chloride 106, Carbon Dioxide 15 L, Anion Gap 22.8 H, BUN 16, Creatinine 0.60 L, Estimated Creat Clear 146, Estimated GFR 166, Est GFR ( Amer) 200, Glucose 432 H*, Calcium 8.5, Phosphorus 4.6 H, Magnesium 1.5 L 04/28/24 23:03: Lactate 4.4 H, Troponin I < 0.01 04/28/24 23:12: POC Glucose 334 H* 04/29/24 00:16: POC Glucose 201 H 04/29/24 01:00: Sodium 142, Potassium 4.0, Chloride 114 H, Carbon Dioxide 23, Anion Gap 9.0, BUN 17, Creatinine 0.70, Estimated Creat Clear 116, Estimated GFR 139, Est GFR ( Amer) 168, Glucose 144 H D, Calcium 8.2 L, Phosphorus 1.2 L D, Magnesium 2.3 D, Troponin I < 0.01 04/29/24 01:06: POC Glucose 138 H 04/29/24 03:10: Lactate 0.9 04/29/24 05:54: POC Glucose 190 H 04/29/24 05:57: WBC 14.8 H, RBC 3.82 L D, Hgb 12.4 L D, Hct 33.9 L, MCV 88.8, MCH 32.1 H, MCHC 36.1 H, RDW 14.0, Plt Count 278, MPV 7.0 L, Neut % (Auto) 80.7 H, Lymph % (Auto) 12.8, [place] % (Auto) 6.0, Eos % (Auto) 0.1, Baso % (Auto) 0.4, Neut # (Auto) 12.0 H, Lymph # (Auto) 1.9, [place] # (Auto) 0.9, Eos # (Auto) 0.0, Baso # (Auto) 0.1, Sodium 140, Potassium 4.3, Chloride 112 H, Carbon Dioxide 16 L, Anion Gap 16.3 H, BUN 18, Creatinine 0.70, Estimated Creat Clear 116, Estimated GFR 139, Est GFR ( Amer) 168, Glucose 194 H D, Calcium 8.1 L, Phosphorus 3.1 D, Magnesium 1.9 D 04/29/24 06:15: VBG pH 7.34, VBG pCO2 32.0 L, VBG pO2 105.1 H, VBG HCO3 16.7 L, VBG Total CO2 17.7 L, VBG O2 Saturation 97.7 H, VBG Base Excess -9.1 L, VBG Lactic Acid 1.3 04/29/24 10:04: WBC 14.0 H, RBC 3.68 L, Hgb 12.3 L, Hct 32.7 L, MCV 88.7, MCH 33.4 H, MCHC 37.7 H, RDW 13.8, Plt Count 261, MPV 6.8 L, Neut % (Auto) 78.5, Lymph % (Auto) 14.4, [place] % (Auto) 6.7, Eos % (Auto) 0.1, Baso % (Auto) 0.3, Neut # (Auto) 11.0 H, Lymph # (Auto) 2.0, [place] # (Auto) 0.9, Eos # (Auto) 0.0, Baso # (Auto) 0.1, Sodium 140, Potassium 3.7, Chloride 114 H, Carbon Dioxide 16 L, Anion Gap 13.7, BUN 19, Creatinine 0.60 L, Estimated Creat Clear 136, Estimated GFR 166, Est GFR ( Amer) 200, Glucose 130 H D, Calcium 8.1 L, Phosphorus 2.2 L D, Magnesium 1.9 04/29/24 10:40: POC Glucose 120 H 04/29/24 13:50: Sodium 143, Potassium 3.5, Chloride 110 H, Carbon Dioxide 21 L, Anion Gap 15.5 H, BUN 19, Creatinine 0.60 L, Estimated Creat Clear 136, Estimated GFR 166, Est GFR ( Amer) 200, Glucose 119 H, Calcium 8.5, Phosphorus 2.7, Magnesium 1.9 04/29/24 17:06: POC Glucose 115 H 04/29/24 18:03: Sodium 132 L, Potassium 3.2 L, Chloride 110 H, Carbon Dioxide 22, Anion Gap 3.2 L, BUN 17, Creatinine 0.60 L, Estimated Creat Clear 136, Estimated GFR 166, Est GFR ( Amer) 200, Glucose 200 H D, Calcium 8.0 L, Phosphorus 2.1 L, Magnesium 1.8 04/29/24 21:04: POC Glucose 160 H I & O for Last 24 hours: Intake & Output 04/26/24 04/27/24 04/28/24 04/29/24 23:59 23:59 23:59 23:59 Intake Total 7.323 / 2707.323 4157.263 / 4157.263 Output Total 900 / 900 Balance 7.323 / 2207.323 3257.263 / 3257.263 Weight 50.547 kg 50.5 kg Microbiology Reports for the Last 24 Hours: Microbiology 04/28/24 20:00 Blood Blood Culture - Preliminary NO GROWTH AFTER 24 HOURS 04/28/24 20:00 Blood Blood Culture - Preliminary NO GROWTH AFTER 24 HOURS Constitutional Constitutional: no acute distress *Routine HEENT Exam Head: Present normocephalic Eye: Present EOMI and PERRL ENT: Present mucous membranes moist *Routine Neck Exam Neck: Present supple; Absent lymphadenopathy *Routine Respiratory Exam Respiratory: Present CTA bilaterally *Routine Cardiovascular Exam Cardiovascular: Present RRR *Routine Abdominal Exam Abdominal: Present soft, normoactive bowel sounds and tenderness *Routine Extremities Exam Extremities: Absent cyanosis, clubbing or edema *Routine Skin Exam Skin: Present warm; Absent rash *Routine Neurological Exam Neurological: Present alert and oriented X3 Assessment and Plan *Assessment and plan (1) DKA, type 1: Status: Acute Category: Medical Code(s): E10.10 - Type 1 diabetes mellitus with ketoacidosis without coma Plan Assessment: This is a 23-year-old male being admitted for DKA. DKA, type 1 DM Nausea/vomiting - DKA, AGAP resolved with IV fluids, insulin drip. Transitioned to Lantus, see below. - Tolerating some PO diet, still having nausea. - Lantus 20 units total given today. Takes 30u at home. - POC glucose improved 120-160 today. - Anticipate discharge tomorrow pending improvement in diet tolerance. - Discussed insulin pump with patient, he is in talks with his PCP regarding this. History of non-adherence with SQ insulin. #Leukocytosis - Likely reactive as no signs for bacterial infection. Afebrile. - Continue to monitor, morning CBC. Tobacco abuse -Nicotine patch as needed -Tobacco cessation counseling given Marijuana abuse -Cessation counseling given, explained again that decreasing marijuana usage with help with his hyperemesis DVT prophylaxis: Lovenox CODE STATUS: Full code Surrogate decision maker: Estee [phone]
[2024-04-29 22:40] LABS: Procalcitonin 0.506 ng/mL (0.0-2.0)
[2024-04-29] MEDS: MAGNESIUM SULFATE IN WATER 2 GM/50 ML PIGGYBACK IV (22:56)
[2024-04-29] MEDS: POTASSIUM CHLORIDE 20MEQ TAB 40 MEQ PO (22:56)
[2024-04-30] VITALS (8 sets, daily range): BP systolic 109–126; BP diastolic 47–83; PULSE 56–84; RESP 15–18; TEMP 36.8–37.3; O2SAT 96–100; BMI 19.6
[2024-04-30] MEDS: ONDANSETRON 4MG/2ML VIAL 4 MG IV ×2 (01:48→07:56)
[2024-04-30] MEDS: POTASSIUM CHLORIDE 20MEQ TAB 40 MEQ PO (02:48)
[2024-04-30 05:14] LABS: POC Glucose,Bedside 146 (70-110)
[2024-04-30 05:27] LABS: HCV Ab Non Reactive (Non Reactive)
[2024-04-30 06:39] LABS: Basophils % 0.3 % (0.1-2.0); Eosinophils % 0.2 % (0.1-12.0); Hematocrit 34.1 % (42.0-52.0); Hemoglobin 11.8 g/dL (14.1-18.0); Lymphocytes # 2.2 K/mm3 (0.7-4.5); Lymphocytes % 20.1 % (10-50); Mean Corpuscular HGB Conc 34.6 g/dL (31.8-35.4); Mean Corpuscular Hemoglobin 30.5 pg (27.0-31.2); Mean Corpuscular Volume 88.2 fl (80-94); Monocytes # 0.7 K/mm3 (0.1-1.0); Monocytes % 6.4 % (1.7-9.3); Platelet Count 250 K/mm3 (142-424); Red Blood Count 3.87 M/mm3 (4.60-6.20); Red Cell Distribution Width 13.8 % (11.5-17.5); White Blood Count 10.9 K/mm3 (4.8-10.8)
[2024-04-30] MEDS: ENOXAPARIN 40MG/0.4ML SYRINGE 40 MG SQ (08:02)
[2024-04-30 08:03] LABS: Chloride 109 mmol/L (98-107)
[2024-04-30 08:04] LABS: Potassium 3.8 mmoL/L (3.5-5.1); Sodium 136 mmol/L (136-145)
[2024-04-30 08:06] LABS: Blood Urea Nitrogen 11 mg/dl (9-20); Creatinine Clearance Estimated 149 mL/min (50-200); Estimated Glomerular Filt Rate 166 ml/min (>60); GFR (African American) 200 ML/MIN (>60)
[2024-04-30 08:07] LABS: Anion Gap 7.8 mEq/L (5-15); Calcium 7.8 mg/dl (8.4-10.2); Carbon Dioxide 23 mmol/L (22.0-30.0); Glucose 132 mg/dl (74-100)
[2024-04-30] MEDS: INSULIN GLARGINE 100 UNITS/ML 3ML FLEXPEN 20 UNIT SQ (10:27)
[2024-04-30] MEDS: PROCHLORPERAZINE 10MG/2ML VIAL 5 MG IV ×3 (10:45→23:32)
[2024-04-30 10:59] LABS: POC Glucose,Bedside 208 (70-110)
[2024-04-30] MEDS: 0.9 % SODIUM CHLORIDE 1000ML 1,000 ML 999 ML IV (12:20)
[2024-04-30] MEDS: METOCLOPRAMIDE 10MG TABLET 10 MG PO ×2 (13:53→21:56)
[2024-04-30] MEDS: LACTATED RINGERS 1000ML 1,000 ML 100 ML IV (15:40)
[2024-04-30] MEDS: FAMOTIDINE 20MG TABLET 40 MG PO (15:56)
[2024-04-30 16:44] LABS: POC Glucose,Bedside 222 (70-110)
[2024-04-30] MEDS: humaLOG 100 UNITS/ML 10ML VIAL (SSI) SQ (16:57)
--- NOTE | 2024-04-30 18:52 | PC.NURSE ---
1853: Patient alert and orientated x 3. Pt. has slept all day. Pt. has had nausea and vomiting today. Pt. has had several doses of nausea medications and stomache medications. Pt. refusing to eat and drink fluids. Pt. refuses to drink GI cocktail. Long acting insulin started today and S/S insulin for blood sugars in the 200's. vital signs stable.
--- NOTE | 2024-04-30 21:40 | EXP.PN ---
Subjective *Date: 04/30/24 *Time: 21:40 Interval history: Patient continues to have nausea/vomiting. Unable to tolerate diet reliably, high risk or flipping back into DKA. Exam Data for Last 24 hours Vital signs and Labs for Last 24 Hours: Temp Pulse Resp BP Pulse Ox O2 Del Method 98.4 F 65 15 111/49 L 100 Room Air 04/30/24 19:19 04/30/24 19:19 04/30/24 19:19 04/30/24 19:19 04/30/24 19:19 04/30/24 19:19 Laboratory Results - last 24 hr 04/28/24 20:00: Hepatitis C Antibody Non reactive 04/29/24 21:50: Procalcitonin 0.506 04/30/24 05:06: POC Glucose 146 H 04/30/24 05:38: WBC 10.9 H, RBC 3.87 L, Hgb 11.8 L, Hct 34.1 L, MCV 88.2, MCH 30.5, MCHC 34.6, RDW 13.8, Plt Count 250, MPV 7.0 L, Neut % (Auto) 73.0, Lymph % (Auto) 20.1, [place] % (Auto) 6.4, Eos % (Auto) 0.2, Baso % (Auto) 0.3, Neut # (Auto) 8.0 H, Lymph # (Auto) 2.2, [place] # (Auto) 0.7, Eos # (Auto) 0.0, Baso # (Auto) 0.0, Sodium 136, Potassium 3.8, Chloride 109 H, Carbon Dioxide 23, Anion Gap 7.8, BUN 11 D, Creatinine 0.60 L, Estimated Creat Clear 149, Estimated GFR 166, Est GFR ( Amer) 200, Glucose 132 H D, Calcium 7.8 L 04/30/24 10:25: POC Glucose 208 H 04/30/24 16:34: POC Glucose 222 H I & O for Last 24 hours: Intake & Output 04/27/24 04/28/24 04/29/24 04/30/24 23:59 23:59 23:59 23:59 Intake Total 7.323 / 2707.323 4597.263 / 4597.263 1272 / 1272 Output Total 900 / 900 0 / 0 Balance 7.323 / 2207.323 3697.263 / 3697.263 1272 / 1272 Weight 50.547 kg 50.5 kg 55.423 kg Microbiology Reports for the Last 24 Hours: Microbiology 04/28/24 20:00 Blood Blood Culture - Preliminary NO GROWTH AFTER 48 HOURS 04/28/24 20:00 Blood Blood Culture - Preliminary NO GROWTH AFTER 48 HOURS Constitutional Constitutional: no acute distress *Routine HEENT Exam Head: Present normocephalic Eye: Present EOMI and PERRL ENT: Present mucous membranes moist *Routine Neck Exam Neck: Present supple; Absent lymphadenopathy *Routine Respiratory Exam Respiratory: Present CTA bilaterally *Routine Cardiovascular Exam Cardiovascular: Present RRR *Routine Abdominal Exam Abdominal: Present soft, normoactive bowel sounds and tenderness Comments: Generalized abdominal tenderness. *Routine Extremities Exam Extremities: Absent cyanosis, clubbing or edema *Routine Skin Exam Skin: Present warm; Absent rash *Routine Neurological Exam Neurological: Present alert and oriented X3 Assessment and Plan *Assessment and plan (1) DKA, type 1: Status: Acute Category: Medical Code(s): E10.10 - Type 1 diabetes mellitus with ketoacidosis without coma Plan Assessment: This is a 23-year-old male being admitted for DKA. DKA, type 1 DM Nausea/vomiting Gastroparesis - DKA, AGAP resolved with IV fluids, insulin drip. Transitioned to Lantus, see below. - However, patient continues to have nausea/vomiting. Unable to tolerate diet reliably, high risk or flipping back into DKA. - Patient does have a history of gastroparesis, and as such his home Reglan was scheduled. - Protonix 40mg started with history of GERD. Given famotidine and GI cocktail for heartburn, but patient unable to tolerate cocktail at this time. - Given 1L bolus, started on 100ml/h LR. - IV compazine as needed. - Lantus 20 units daily scheduled. Takes 30u at home. - POC glucose improved 130s today. AGAP remains closed. - If N/V does not improve along with abdominal pain, will obtain CT abdomen. - Anticipate discharge tomorrow pending improvement in diet tolerance. - Discussed insulin pump with patient, he is in talks with his PCP regarding this. History of non-adherence with SQ insulin. #Leukocytosis - Likely reactive as no signs for bacterial infection. Afebrile. - Improving from 14 to 10.9 today. - Continue to monitor, morning CBC. Tobacco abuse -Nicotine patch as needed -Tobacco cessation counseling given Marijuana abuse -Cessation counseling given, explained again that decreasing marijuana usage with help with his hyperemesis DVT prophylaxis: Lovenox CODE STATUS: Full code Surrogate decision maker: Estee [phone]
[2024-04-30] MEDS: PANTOPRAZOLE 40MG TABLET 40 MG PO (21:56)
[2024-04-30 22:09] LABS: POC Glucose,Bedside 130 (70-110)
[2024-05-01] MEDS: LACTATED RINGERS 1000ML 1,000 ML 100 ML IV (00:15)
[2024-05-01 00:50] LABS: Magnesium 1.6 mg/dl (1.6-2.3)
[2024-05-01 03:36] VITALS: BP 116/60; PULSE 60; RESP 14; TEMP 37.2; O2SAT 100; BMI 19.3
--- NOTE | 2024-05-01 05:08 | PC.NURSE ---
Addendum entered by Saray Light RN 05/01/24 06:22: Fingerstick blood glucose at 21:00 this shift was 130; patient did not require insulin coverage at this time. At 06:00 this morning, the patient's fingerstick blood glucose was 219; patient received 7 units of Lispro insulin. Original Note: Patient is alert and oriented x4. Patient was able to sit up at bedside to watch a show on his laptop at bedtime. Patient was able to tolerate sips of ice water to take his scheduled PO medications per SEP. However, patient was noticed to still retch and dry heave occasionally this shift. He was given compazine IV for a report of nausea; after receiving, the patient was able to rest on his side, self-turning in bed. Patient refused snacks and any other beverage intake this shift. He has been getting up to ambulate independently to the bathroom. LR 1000 mL is infusing intravenously at 100 mL/hr. Upon auscultation, patient's lung sounds were clear, S1/S2 heart sounds could be heard, and bowel sounds were active. Patient did not report having abdominal pain, just described it as tightness in his belly. Vital signs have been stable with soft blood pressures this shift. Patient is currently resting in bed with eyes closed, respirations even and unlabored on room air, and no apparent distress. No further complaints have been reported by the patient. No acute changes noted thus far. Call light within reach.
[2024-05-01 05:49] LABS: POC Glucose,Bedside 219 (70-110)
[2024-05-01] MEDS: humaLOG 100 UNITS/ML 10ML VIAL (SSI) SQ (06:16)
[2024-05-01 08:00] VITALS: BP 107/47; PULSE 76; RESP 17; TEMP 36.5; O2SAT 98
[2024-05-01] MEDS: ENOXAPARIN 40MG/0.4ML SYRINGE 40 MG SQ (08:28)
[2024-05-01] MEDS: INSULIN GLARGINE 100 UNITS/ML 3ML FLEXPEN 20 UNIT SQ (08:28)
[2024-05-01] MEDS: METOCLOPRAMIDE 10MG TABLET 10 MG PO (08:29)
[2024-05-01 08:39] LABS: Chloride 106 mmol/L (98-107); Potassium 3.9 mmoL/L (3.5-5.1); Sodium 134 mmol/L (136-145)
[2024-05-01 08:42] LABS: Anion Gap 17.9 mEq/L (5-15); Blood Urea Nitrogen 9 mg/dl (9-20); Calcium 8.6 mg/dl (8.4-10.2); Carbon Dioxide 14 mmol/L (22.0-30.0); Creatinine Clearance Estimated 147 mL/min (50-200); Estimated Glomerular Filt Rate 166 ml/min (>60); GFR (African American) 200 ML/MIN (>60); Glucose 163 mg/dl (74-100); Magnesium 1.8 mg/dl (1.6-2.3)
[2024-05-01 08:46] LABS: Basophils # 0.1 K/mm3 (0-0.2); Basophils % 0.4 % (0.1-2.0); Eosinophils % 0.1 % (0.1-12.0); Hematocrit 36.9 % (42.0-52.0); Hemoglobin 12.8 g/dL (14.1-18.0); Lymphocytes # 1.7 K/mm3 (0.7-4.5); Lymphocytes % 13.4 % (10-50); Mean Corpuscular HGB Conc 34.6 g/dL (31.8-35.4); Mean Corpuscular Hemoglobin 30.1 pg (27.0-31.2); Mean Platelet Volume 6.9 fl (7.4-10.4); Monocytes # 0.8 K/mm3 (0.1-1.0); Monocytes % 6.1 % (1.7-9.3); Neutrophils # 10.3 K/mm3 (1.8-7.8); Platelet Count 297 K/mm3 (142-424); Red Blood Count 4.25 M/mm3 (4.60-6.20); Red Cell Distribution Width 13.8 % (11.5-17.5); White Blood Count 12.8 K/mm3 (4.8-10.8)
[2024-05-01] MEDS: PROCHLORPERAZINE 10MG/2ML VIAL 5 MG IV (11:39)
[2024-05-01 11:47] LABS: POC Glucose,Bedside 116 (70-110)
[2024-05-01 13:22] LABS: Free T4 (Free Thyroxine) 1.26 ng/dl (0.78-2.19)
[2024-05-01] MEDS: LACTATED RINGERS 1000ML 1,000 ML 999 ML IV (14:08)
[2024-05-01 16:00] VITALS: BP 150/62; PULSE 58; RESP 21; TEMP 36.6; O2SAT 94
[2024-05-01 16:53] LABS: POC Glucose,Bedside 97 (70-110)
[2024-05-01 16:55] LABS: Anion Gap 14.7 mEq/L (5-15); Blood Urea Nitrogen 7 mg/dl (9-20); Calcium 8.7 mg/dl (8.4-10.2); Carbon Dioxide 21 mmol/L (22.0-30.0); Chloride 104 mmol/L (98-107); Creatinine Clearance Estimated 147 mL/min (50-200); Estimated Glomerular Filt Rate 166 ml/min (>60); GFR (African American) 200 ML/MIN (>60); Glucose 102 mg/dl (74-100); Potassium 3.7 mmoL/L (3.5-5.1); Sodium 136 mmol/L (136-145)
--- NOTE | 2024-05-01 17:10 | P.DS_ITS ---
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 He reports that he ran out of his fingerstick supplies and has been unable to check his blood sugar. Reports he has a continuous glucose monitor in his arm but he also has not gotten a refill on that. Reports he has not been checking his blood sugar for the last several days. States he has been been trying to Wing it . Today he reports having generalized abdominal pain, nausea, vomiting. Does report some possible blood- tinged color in his emesis but reports he has had multiple episodes of vomiting today. Denies any fever, productive cough, dysuria. No other issues reported. No focal neurodeficits noted. Denies any recent weight gain or weight loss, no swelling in his legs or feet. Does not take any blood thinners. Denies any alcohol use, endorses marijuana use. Workup in the ER showed elevated white count of 14.9 thousand, glucose elevated at 502, anion gap at 19.7. Mag a bit low at 1.5, Phos at 5.9. A1c at 9.9. VBG showed a pH of 7.25, pO2 of 43, pCO2 of 43, with a bicarb of 18. Lactic acid was 4.6. UDS was positive for marijuana. Patient was given a 2 L IV fluid bolus in the ER, insulin drip was initiated, mag was replaced. He was given antiemetics. Chest x-ray did not show any focal consolidation. UA was noninfectious. Patient will be admitted to the hospitalist service for DKA. Hospital Course Hospital Course Hospital Course: Assessment: This is a 23-year-old male being admitted for DKA. DKA, type 1 DM Nausea/vomiting Gastroparesis - Intial glucose 502, AGAP 19.7, 7.25. - DKA, AGAP resolved with IV fluids, insulin drip. Transitioned to Lantus, see below. - A1c 9.9. - In spite of resolution of DKA, patient continued to have nausea and poor tolerance to diet. - Patient does have a history of gastroparesis, and as such his home Reglan was scheduled with improvement in tolerance to diet. Also given additional IV fluids as AGAP slightly opened back up with resolution. - Protonix 40mg started with history of GERD. - Lantus 20 units daily scheduled. Takes 30u at home. - Patient will benefit from insulin pump, and he states he is actually in discussion with is office helper clerical about it. We called his office and made a follow-up appointment on 05/07/24. - Patient was also educated on the risks of DKA, including , and encouraged patient to check his sugars, administer insulin appropriately, eat balanced diets consistently, and eliminate marijuana use (contributing to nausea). Tobacco abuse -Nicotine patch as needed -Tobacco cessation counseling given Marijuana abuse -Cessation counseling given, explained again that decreasing marijuana usage with help with his hyperemesis Exam Data for Last 24 hours Vital signs and Labs for Last 24 Hours: Temp Pulse Resp BP Pulse Ox O2 Del Method 97.7 F 76 17 107/47 L 98 Room Air 05/01/24 08:00 05/01/24 08:00 05/01/24 08:00 05/01/24 08:00 05/01/24 08:00 05/01/24 15:00 Laboratory Results - last 24 hr 04/30/24 22:00: POC Glucose 130 H 05/01/24 00:15: Magnesium 1.6 D 05/01/24 05:41: POC Glucose 219 H 05/01/24 08:00: WBC 12.8 H, RBC 4.25 L, Hgb 12.8 L, Hct 36.9 L, MCV 87.0, MCH 30.1, MCHC 34.6, RDW 13.8, Plt Count 297, MPV 6.9 L, Neut % (Auto) 80.0, Lymph % (Auto) 13.4, [place] % (Auto) 6.1, Eos % (Auto) 0.1, Baso % (Auto) 0.4, Neut # (Auto) 10.3 H, Lymph # (Auto) 1.7, [place] # (Auto) 0.8, Eos # (Auto) 0.0, Baso # (Auto) 0.1, Sodium 134 L, Potassium 3.9, Chloride 106, Carbon Dioxide 14 L, Anion Gap 17.9 H, BUN 9, Creatinine 0.60 L, Estimated Creat Clear 147, Estimated GFR 166, Est GFR ( Amer) 200, Glucose 163 H, Calcium 8.6, Magnesium 1.8 D, Free T4 1.26 05/01/24 11:36: POC Glucose 116 H 05/01/24 16:37: Sodium 136, Potassium 3.7, Chloride 104, Carbon Dioxide 21 L, Anion Gap 14.7, BUN 7 L, Creatinine 0.60 L, Estimated Creat Clear 147, Estimated GFR 166, Est GFR ( Amer) 200, Glucose 102 H D, Calcium 8.7 05/01/24 16:46: POC Glucose 97 I & O for Last 24 hours: Intake & Output 04/28/24 04/29/24 04/30/24 05/01/24 23:59 23:59 23:59 23:59 Intake Total 7.323 / 2707.323 4597.263 / 4597.263 1271 Output Total 900 / 900 0 / 0 Balance 7.323 / 2207.323 3697.263 / 3697.263 1271 Weight 50.547 kg 50.5 kg 55.423 kg 54.601 kg Microbiology Reports for the Last 24 Hours: Microbiology 04/28/24 19:55 Urine,Clean Catch Urine Culture - Final No growth. 04/28/24 20:00 Blood Blood Culture - Preliminary NO GROWTH AFTER 48 HOURS 04/28/24 20:00 Blood Blood Culture - Preliminary NO GROWTH AFTER 48 HOURS Constitutional Constitutional: no acute distress *Routine HEENT Exam Head: Present normocephalic Eye: Present EOMI and PERRL ENT: Present mucous membranes moist *Routine Neck Exam Neck: Present supple; Absent lymphadenopathy *Routine Respiratory Exam Respiratory: Present CTA bilaterally *Routine Cardiovascular Exam Cardiovascular: Present RRR *Routine Abdominal Exam Abdominal: Present soft and normoactive bowel sounds *Routine Extremities Exam Extremities: Absent cyanosis, clubbing or edema *Routine Skin Exam Skin: Present warm; Absent rash *Routine Neurological Exam Neurological: Present alert and oriented X3 Results Data Completed and Pending Labs on day of discharge: Labs from last 24 hours 05/01/24 05/01/24 05/01/24 16:46 16:37 11:36 WBC RBC Hgb Hct MCV MCH MCHC RDW Plt Count MPV Neut % (Auto) Lymph % (Auto) [place] % (Auto) Eos % (Auto) Baso % (Auto) Neut # (Auto) Lymph # (Auto) [place] # (Auto) Eos # (Auto) Baso # (Auto) Sodium 136 Potassium 3.7 Chloride 104 Carbon Dioxide 21 L Anion Gap 14.7 BUN 7 L Creatinine 0.60 L Estimated Creat Clear 147 Estimated GFR 166 Est GFR ( Amer) 200 Glucose 102 H D POC Glucose 97 116 H Calcium 8.7 Magnesium Free T4 05/01/24 05/01/24 05/01/24 08:00 05:41 00:15 WBC 12.8 H RBC 4.25 L Hgb 12.8 L Hct 36.9 L MCV 87.0 MCH 30.1 MCHC 34.6 RDW 13.8 Plt Count 297 MPV 6.9 L Neut % (Auto) 80.0 Lymph % (Auto) 13.4 [place] % (Auto) 6.1 Eos % (Auto) 0.1 Baso % (Auto) 0.4 Neut # (Auto) 10.3 H Lymph # (Auto) 1.7 [place] # (Auto) 0.8 Eos # (Auto) 0.0 Baso # (Auto) 0.1 Sodium 134 L Potassium 3.9 Chloride 106 Carbon Dioxide 14 L Anion Gap 17.9 H BUN 9 Creatinine 0.60 L Estimated Creat Clear 147 Estimated GFR 166 Est GFR ( Amer) 200 Glucose 163 H POC Glucose 219 H Calcium 8.6 Magnesium 1.8 D 1.6 D Free T4 1.26 04/30/24 22:00 WBC RBC Hgb Hct MCV MCH MCHC RDW Plt Count MPV Neut % (Auto) Lymph % (Auto) [place] % (Auto) Eos % (Auto) Baso % (Auto) Neut # (Auto) Lymph # (Auto) [place] # (Auto) Eos # (Auto) Baso # (Auto) Sodium Potassium Chloride Carbon Dioxide Anion Gap BUN Creatinine Estimated Creat Clear Estimated GFR Est GFR ( Amer) Glucose POC Glucose 130 H Calcium Magnesium Free T4 Preliminary micro results at discharge 04/28/24 20:00 Blood Culture - Preliminary Blood NO GROWTH AFTER 48 HOURS 04/28/24 20:00 Blood Culture - Preliminary Blood NO GROWTH AFTER 48 HOURS DS: Diagnosis Discharge Diagnosis (1) DKA, type 1: Status: Resolved Code(s): E10.10 - Type 1 diabetes mellitus with ketoacidosis without coma Meds Home Medications and Allergies Home Medications ?Medication ?Instructions ?Recorded ?Confirmed ?Type cholecalciferol (vitamin D3) 1,250 1,250 mcg PO WEEKLY 04/28/24 04/28/24 History mcg (50,000 unit) capsule cyanocobalamin (vitamin B-12) 1,000 mcg PO DAILY 04/28/24 04/28/24 History 1,000 mcg tablet insulin lispro 200 unit/mL (3 mL) 0 unit SQ DIRECTED 04/29/24 04/29/24 History subcutaneous pen (Humalog KwikPen U-200 Insulin) metoclopramide HCl 10 mg tablet 10 mg PO BID PRN Nausea And 04/29/24 04/29/24 History Vomiting insulin glargine U-300 conc 300 20 unit (0.0667 mL) SQ HS #6 mL 05/01/24 04/29/24 Rx unit/mL (3 mL) subcutaneous pen (Toujeo Max U-300 SoloStar) pantoprazole 40 mg tablet,delayed See Rx Instructions .Route 05/01/24 Rx release .COMPLEX 30 days #30 tabs prochlorperazine maleate 5 mg 5 mg PO QID PRN nausea and 05/01/24 Rx tablet (Compazine) vomiting #14 tabs New Prescriptions to Start Prescriptions: Prasanth Stearns prochlorperazine maleate [Compazine] Prasanth Guzman Allergies Allergy/AdvReac Type Severity Reaction Status Date / Time No Known Allergies Allergy Verified 04/03/24 13:16 Discharge Plan Disposition Patient Disposition: Home, Self-Care Discharge Order Discharge Orders: Discharge Order (Routine); Ordered 05/01/24 Ordered By: Prasanth Guzman Follow up Plan Follow up with: Pavan Cruz [Referring] - 05/07/24 2:00 pm ([id number] [facility] [address] [facility] ) Prescriptions/Medication Reconciliation: New pantoprazole 40 mg Tablet,Delayed Release (Dr/Ec) See Rx Instructions .ROUTE .COMPLEX 30 Days Qty: 30 0RF Rx Instructions: 40 mg orally on empty stomach. prochlorperazine maleate [Compazine] 5 mg tablet 5 mg PO QID PRN (Reason: nausea and vomiting) Qty: 14 0RF Continued cyanocobalamin (vitamin B-12) 1,000 mcg tablet 1,000 mcg PO DAILY Patient Comments: TAKE 1 TABLET BY MOUTH EVERY DAY cholecalciferol (vitamin D3) 1,250 mcg (50,000 unit) capsule 1,250 mcg PO WEEKLY Patient Comments: TAKE 1 CAPSULE BY MOUTH EVERY WEEK metoclopramide HCl 10 mg tablet 10 mg PO BID PRN (Reason: Nausea And Vomiting) Patient Comments: TAKE ONE TABLET BY MOUTH BEFORE MEALS AND AT BEDTIME NEEDED FOR NAUSEA AND VOMITING Humalog KwikPen Insulin 200 unit/mL (3 mL) insulin pen 0 unit SQ DIRECTED Rx Instructions: Per sliding scale Changed insulin glargine U-300 conc [Toujeo Max U-300 SoloStar] 300 unit/mL (3 mL) insulin pen 20 unit SQ HS Qty: 6 0RF Problem Reconciliation Problems Reviewed?: Yes Patient Discharge Instructions Additional Instructions: Please make sure you are eating and drinking at home otherwise he will end up right back into DKA. I have decreased your Lantus to 20 units for this time given that you are slowly starting to build back your appetite. You may increase it back to 30 units once your appetite returns to baseline and you follow-up with your PCP. We have made an appointment with your office helper clerical for next week. Please discuss insulin pump with him. Patient Instructions: DI for Diabetic Ketoacidosis Print Language: Chinese Providers Primary Care Provider: Gretchen Angelo Admchio Provider: Harshil Schultz Attending Provider: Harshil Schultz
--- NOTE | 2024-05-01 17:11 | PC.NURSE ---
PT IS RESTING IN BED. ALERT AND ORIENTED X 4. PT STATES HE IS FEELING BETTER AND WAS ABLE TO TOLERATE A FEW BITES OF A HAMBURGER AND FRIES FOR LUNCH. PT HAS BEEN ENCOURAGED TO DRINK FLUIDS. AMBULATES TO THE BATHROOM. LUNG SOUNDS CLEAR. ABDOMEN SOFT WITH EPIGASTRIC TENDERNESS NOTED. WILL CONTINUE TO MONITOR.
--- NOTE | 2024-05-02 07:47 | PC.NURSE ---
urine culture completed, no growth
[2024-05-02 11:37] LABS: POC Glucose,Bedside 206 (70-110)
--- NOTE | 2024-05-05 14:40 | CARE MANAGER ---
Contacted patient related to hospital discharge. He states he is getting better. He has new medications and is aware of follow up appointment. Denies questions or concerns. ADDIS Ward
== END 2024-05-01 18:26 | disposition home or self-care (01) | DRG 639 ==
LOC: ER 21:35 → 2ND 21:59
PROVIDERS: Nurse Practitioner Acute Care; Student in an Organized Health Care Education/Training Program; Admitting Provider Internal Medicine Adolescent Medicine; Emergency Provider Emergency Medicine; PCP Nurse Practitioner; Visit Provider Internal Medicine Adolescent Medicine
DX: E10.10 Type 1 diabetes mellitus with ketoacidosis without coma (principal); Z91.199 Patient's noncompliance with other medical treatment and regimen due to unspecified reason; E55.9 Vitamin D deficiency, unspecified; Z79.899 Other long term (current) drug therapy; Z79.4 Long term (current) use of insulin; E03.9 Hypothyroidism, unspecified; F17.210 Nicotine dependence, cigarettes, uncomplicated; E10.43 Type 1 diabetes mellitus with diabetic autonomic (poly)neuropathy; K31.84 Gastroparesis; F12.90 Cannabis use, unspecified, uncomplicated
CPT/HCPCS: 36415; 71045; 80048; 80053; 80307; 81001; 82009; 82803; 82962; 83036; 83605; 83690; 83735; 84100; 84145; 84436; 84439; 84443; 84484; 85007; 85025; 85027; 86803; 87040; 87086; 87389; 93005; 99291; J0780; J1650; J1790; J1885; J2405; J3475; J7030; J7120

== ENCOUNTER 2024-06-26 14:19 | Inpatient (IN) | payer OTHER, SELFPAY ==
[2024-06-26] VITALS (18 sets, daily range): BP systolic 112–141; BP diastolic 66–90; PULSE 99–169; RESP 15–27; TEMP 36.7–37.1; O2SAT 97–100; BMI 18.3; BMI 13.9
--- NOTE | 2024-06-26 14:21 | ECG_ITS ---
APPROVED REPORT Exam: Resting ECG HR:154 bpm ECG Measurements Heart Rate 154 AXES OR 101 P 79 QRSd 86 QRS 106 QT 253 T 74 QTc 340 Conclusion SINUS TACHYCARDIA WITH SHORT OR INTERVAL, POSSIBLE ATRIAL FLUTTER RIGHT AXIS DEVIATION [QRS AXIS > 100] PATTERN CONSISTENT WITH PULMONARY DISEASE ST ELEVATION, PROBABLY EARLY REPOLARIZATION [ST ELEVATION WITH NORMALLY INFLECTED T-WAVE] TALL T-WAVES, SUGGESTS HYPERKALEMIA Electronically signed by : MARLA BAEZ, 07/05/2024 07:17:11
[2024-06-26 14:42] LABS: VBG Base Excess -16.7 mmol/L (-2.4-2.3); VBG HCO3 11.4 mmol/L (23-30); VBG PCO2 30.2 mmol/L (35-51); VBG PO2 47.5 mmol/L (28-40); VBG Total CO2 12.4 mmol/L (23-27)
[2024-06-26] MEDS: 0.9 % SODIUM CHLORIDE 1000ML 2,000 ML 999 ML IV (14:45)
[2024-06-26] MEDS: SODIUM BICARB 8.4% 50ML SYRINGE (CRASH CART) 50 MEQ IV (14:45)
--- NOTE | 2024-06-26 14:45 | XR_ITS ---
FINAL REPORT CLINICAL HISTORY: Shortness of breath, AMS COMPARISON: 04/28/2024 FINDINGS: A single portable view of the chest was obtained. The heart size and pulmonary vascularity are within normal limits. The mediastinum is within normal limits. The lungs are somewhat hyperinflated. No focal abnormality is identified. No acute pulmonary abnormality is identified. The bony thorax is intact. IMPRESSION: No active cardiopulmonary disease. No focal abnormality. Reviewed, Interpreted and Dictated by Ruddy Galeano III, MD Transcribed by Kelin Valdes Authenticated and [facility]
--- NOTE | 2024-06-26 14:49 | ED_ITS ---
Discharge Plan Disposition Chief Complaint: Altered Mental Status Discharge ED Provider: William Menjivar General Adult HPI General Chief complaint: Altered Mental Status Stated complaint: poss high glucose Time Seen by Provider: 06/26/24 14:22 History of Present Illness HPI narrative: Patient presents in critical condition with altered mental status. Reported history of type 1 diabetes with poor compliance. Due to acuity of condition and altered mental status as well as unstable vital signs further history unable to be obtained. Patient with GCS approximately 14, denying any pain at this time as best able to ascertain within limitations of mental status changes Please note that above description of symptoms, in this electronic medical record under categorization of recalled from ER triage doctor by RN are reflective of an initial nursing assessment, however, is not reflective of my full history and physical exam that was personally taken and clarified. Consequentially, this preceding description of symptoms, which may include the patient's categorized chief complaint in the EMR, do not reflect my personal clinical impression, and the ultimate description of history of present illness and patient stated complaints should be deferred to this section of the note. Unless stated otherwise or congruent with this section of the note, additional signs, symptoms, or incongruence should be interpreted as inaccurate with my clinical impression. Related Data Home Medications ?Medication ?Instructions ?Recorded ?Confirmed cholecalciferol (vitamin D3) 1,250 1,250 mcg PO WEEKLY 04/28/24 04/28/24 mcg (50,000 unit) capsule cyanocobalamin (vitamin B-12) 1,000 mcg PO DAILY 04/28/24 04/28/24 1,000 mcg tablet insulin lispro 200 unit/mL (3 mL) 0 unit SQ DIRECTED 04/29/24 04/29/24 subcutaneous pen (Humalog KwikPen U-200 Insulin) metoclopramide HCl 10 mg tablet 10 mg PO BID PRN Nausea And 04/29/24 04/29/24 Vomiting Previous Rx's ?Medication ?Instructions ?Recorded insulin glargine U-300 conc 300 20 unit (0.0667 mL) SQ HS #6 mL 05/01/24 unit/mL (3 mL) subcutaneous pen (Toujeo Max U-300 SoloStar) pantoprazole 40 mg tablet,delayed See Rx Instructions .Route 05/01/24 release .COMPLEX 30 days #30 tabs prochlorperazine maleate 5 mg 5 mg PO QID PRN nausea and 05/01/24 tablet (Compazine) vomiting #14 tabs Allergies Allergy/AdvReac Type Severity Reaction Status Date / Time No Known Allergies Allergy Verified 04/03/24 13:16 [facility] Disclaimer: The information contained in this section may have been updated after the patient was seen, as this information can be updated by other users. Medical History Vitamin D deficiency Vitamin B12 deficiency Diabetes mellitus type 1 Hyperthyroidism Family History Other Cancer Diabetes Hypertension Social History (Updated 04/29/24 @ 02:00 by Hansel Wan RN) Smoking Status: Unknown if ever smoked alcohol intake: never current occupational status: unemployed Travel in the last 8 weeks: None Have you lived/traveled outside [place] in past 30 days?: No Contact w/someone who lives/traveled outside [place] past 30 days?: No Exposure to someone with infectious disease in past 14 days?: No Do you have a fever (greater than 100.4 F or 38 C)?: No Have you tested positive for COVID-19: No Exposed to someone with COVID-19 in past 14 days?: No Do you have a sore throat?: No Do you have a cough?: No Do you have any weakness?: No Do you have any diarrhea?: No Are you experiencing any unusual bleeding?: No Do you have any muscle aches/pain?: No Do you have any abdominal pain?: No Are you experiencing loss of taste or smell?: No Other Medical History Have you received the Flu Vaccine for this season: No Have you received the Pneumonia Vaccine: No ROS Obtained: Yes other As per HPI Physical Exam General General appearance: lethargic and cachectic Head Head exam: atraumatic and normocephalic Eye Eye exam: Present normal appearance Neck Neck exam: Present normal inspection Chest Chest inspection: Present normal inspection and symmetric chest wall rise Respiratory Respiratory exam: Present normal lung sounds bilaterally; Absent respiratory distress Cardiovascular Cardiovascular exam: Present tachycardia Abdominal Exam Abdominal exam: Present soft Neurological Exam Neurological exam: Present alert (No focal neurologic deficit, drowsy but arousable, moaning) Skin Skin exam: Present warm and dry Medical Decision Making Medical Records Medical records reviewed: Yes I reviewed the patient's medical records. Screening: Per USPSTF and CDC recommendations, given the prevalence of disease in our region, it is our hospital?s policy to screen for HIV and viral Hepatitis for all patients aged 18 and over and those with ongoing risk factors. Lui Inquiry Pt receiving controlled substance: No Vital Signs: 06/26/24 14:20 06/26/24 14:44 06/26/24 15:00 Temperature 98.1 F Temperature Source Temporal Artery Scan Pulse Rate 169 H 165 H Pulse Rate [Left Radial] 158 H Respiratory Rate 18 22 20 Blood Pressure 126/88 140/90 Blood Pressure [Right Arm] 121/76 Blood Pressure Mean [Right Arm] 91 02 Sat by Pulse Oximetry 100 100 100 Oxygen Delivery Method Room Air 06/26/24 15:31 06/26/24 15:40 06/26/24 15:50 Temperature Temperature Source Pulse Rate 165 H 147 H 148 H Pulse Rate [Left Radial] Respiratory Rate 26 H 20 19 Blood Pressure 119/81 128/77 126/74 Blood Pressure [Right Arm] Blood Pressure Mean [Right Arm] 02 Sat by Pulse Oximetry 99 100 99 Oxygen Delivery Method Nasal Cannula 06/26/24 16:00 06/26/24 16:10 Temperature Temperature Source Pulse Rate 148 H 146 H Pulse Rate [Left Radial] Respiratory Rate 20 18 Blood Pressure 118/71 120/70 Blood Pressure [Right Arm] Blood Pressure Mean [Right Arm] 02 Sat by Pulse Oximetry 100 100 Oxygen Delivery Method Lab Data Lab Results 06/26/24 14:38: VBG pH 7.20 L, VBG pCO2 30.2 L, VBG pO2 47.5 H, VBG HCO3 11.4 L, VBG Total CO2 12.4 L, VBG O2 Saturation 79.0 H, VBG Base Excess -16.7 L, VBG Lactic Acid 5.0 H 06/26/24 14:40: WBC 35.2 H*, RBC 5.10, Hgb 15.2, Hct 49.2, MCV 96.5 H, MCH 29.9, MCHC 31.0 L, RDW 13.5, Plt Count 428 H, MPV 7.6, Neut % (Auto) 84.2 H, Lymph % (Auto) 7.3 L, Miller % (Auto) 7.5, Eos % (Auto) 0.1, Baso % (Auto) 1.0, Neut # (Auto) 29.6 H, Lymph # (Auto) 2.6, Miller # (Auto) 2.6 H, Eos # (Auto) 0.0, Baso # (Auto) 0.4 H, Total Counted 100, Neutrophils % (Manual) 73, Lymphocytes % (Manual) 22, Monocytes % (Manual) 5, Platelet Estimate Slight increase, RBC Morphology Normal, Sodium 152 H*, Potassium 4.5, Chloride 116 H, Carbon Dioxide 9 L*, Anion Gap 31.5 H, BUN 48 H, Creatinine 2.10 H, Estimated Creat Clear 38, E stimated GFR 39 L, Est GFR ( Amer) 47 L, Glucose 771 H*, Hemoglobin A1c 10.8 H, Lactate 3.5 H, Calcium 10.5 H, Phosphorus 3.2, Magnesium 3.3 H, Total Bilirubin 0.6, AST 33, ALT 32, Alkaline Phosphatase 114, Total Creatine Kinase 122, Total Protein 6.8, Albumin 4.8, Globulin 2.0, Albumin/Globulin Ratio 2.4 H, Lipase 57, Free T4 1.18, Salicylates < 1.0 L, Acetaminophen < 10 L, Plasma/Serum Alcohol < 10, Acetone Level Moderate 06/26/24 14:50: Urine Color Yellow, Urine Appearance Clear, Urine pH 5.5, Ur Specific Mcintosh 1.020, Urine Protein 1+ A, Urine Glucose (UA) 3+, Urine Ketones 2+, Urine Blood 3+ A, Urine Nitrate Negative, Urine Bilirubin 1+ A, Urine Urobilinogen 0.2, Ur Leukocyte Esterase Negative, Urine RBC Tntc, Urine WBC Occasional, Ur Squamous Epith Cells Occasional, Urine Bacteria Trace 06/26/24 14:40 06/26/24 14:40 Orders (Tests/Meds): ED MEDICATIONS Generic Name Dose Route Start Last Admin Trade Name Freq PRN Reason Stop Dose Admin Dextrose 50 ml 06/26/24 15:58 Dextrose 50% 50ml Syringe (Crash Cart) IVP 07/26/24 15:57 NEEDED PRN Per Dka Protocol for FSBS </= 50 Insulin Human Regular 100 unit 101 mls @ 4.04 mls/hr 06/26/24 14:45 06/26/24 16:27 / Sodium Chloride IV 07/26/24 14:44 4 unit/hr .Q24H MARCELO 4.04 mls/hr Administration Protocol 4 UNIT/HR Sodium Chloride 1,000 mls @ 999 mls/hr 06/26/24 16:15 Sod Chlor 0.45% 1000ml Bag IV 07/26/24 16:14 .Q1H1M MARCELO Potassium Chloride/Sodium Chloride 1,000 mls @ 150 mls/hr 06/26/24 16:15 Kcl 20 Meq In 0.45% Nacl 1000mls IV 07/26/24 16:14 .Q6H40M MARCELO Ondansetron HCl 4 mg 06/26/24 16:11 Ondansetron 4mg/2ml Vial IV 07/26/24 16:10 Q6HP PRN Nausea Discontinued Medications Generic Name Dose Route Start Last Admin Trade Name Freq PRN Reason Stop Dose Admin Sodium Chloride 1,000 mls @ 150 mls/hr 06/26/24 16:45 06/26/24 16:20 Sod Chlor 0.9% 1000ml Bag IV 07/26/24 16:44 150 mls/hr .Q6H40M MARCELO Administration Sodium Chloride 2,000 mls @ 999 mls/hr 06/26/24 14:45 06/26/24 14:45 Sod Chlor 0.9% 1000ml Bag IV 07/26/24 14:44 999 mls/hr .Q2H1M MARCELO Administration Magnesium Sulfate 2 gm in 50 mls @ 50 mls/hr 06/26/24 15:16 06/26/24 15:30 Magnesium Sulfate 2gm/50ml Premix IV 06/26/24 16:15 50 mls/hr ONCE ONE Administration Insulin Human Regular 10 unit 06/26/24 15:57 Insulin Human Regular 100 Units/Ml 10ml Vial IVP 06/26/24 15:58 ONCE ONE ORDERS Category Date Time Status Nutrition Consult [CONS] Routine Cons 06/26/24 15:58 Active XR chest portable Stat Exams 06/26/24 14:45 Completed Acetaminophen Stat Lab 06/26/24 14:40 Completed Acetone, Serum (Rapid) Stat Lab 06/26/24 14:40 Completed Basic Metabolic Panel Q4H Lab 06/26/24 19:00 Ordered Basic Metabolic Panel Q4H Lab 06/26/24 23:00 Ordered Basic Metabolic Panel Q4H Lab 06/27/24 03:00 Ordered Basic Metabolic Panel Q4H Lab 06/27/24 07:00 Ordered Basic Metabolic Panel Q4H Lab 06/27/24 11:00 Ordered CK [Creatine Kinase] Stat Lab 06/26/24 14:40 Completed Complete Blood Count Auto Diff Stat Lab 06/26/24 14:40 Completed Comprehensive Metabolic Panel Stat Lab 06/26/24 14:40 Completed Drug Screen,Urine Stat Lab 06/26/24 15:17 Ordered Ethanol [Ethyl Alcohol] Stat Lab 06/26/24 14:40 Completed Free T4 (Free Thyroxine) Stat Lab 06/26/24 14:40 Completed HIV (1&2) Antibody Rapid Stat Lab 06/26/24 14:40 Received Hemoglobin A1C Stat Lab 06/26/24 14:40 Completed Hep C Ab with Reflex to RNA Stat Lab 06/26/24 14:40 Received Lactic Acid Stat Lab 06/26/24 14:40 Completed Lipase Stat Lab 06/26/24 14:40 Completed Magnesium Q4H Lab 06/26/24 19:00 Ordered Magnesium Q4H Lab 06/26/24 23:00 Ordered Magnesium Q4H Lab 06/27/24 03:00 Ordered Magnesium Q4H Lab 06/27/24 07:00 Ordered Magnesium Q4H Lab 06/27/24 11:00 Ordered Magnesium Stat Lab 06/26/24 14:40 Completed Osmolality Stat Lab 06/26/24 15:17 Ordered Phosphorous Q4H Lab 06/26/24 19:00 Ordered Phosphorous Q4H Lab 06/26/24 23:00 Ordered Phosphorous Q4H Lab 06/27/24 03:00 Ordered Phosphorous Q4H Lab 06/27/24 07:00 Ordered Phosphorous Q4H Lab 06/27/24 11:00 Ordered Phosphorous Stat Lab 06/26/24 14:40 Completed Salicylate Stat Lab 06/26/24 14:40 Completed TSH [Thyroid Stimulating Hormone] Stat Lab 06/26/24 14:40 Received Troponin I Q3H Lab 06/26/24 16:02 Received Troponin I Q3H Lab 06/26/24 18:45 Ordered Urinalysis and Microscopic Stat Lab 06/26/24 14:50 Completed Blood Culture Stat Micro 06/26/24 14:40 Received Urine Culture Stat Micro 06/26/24 14:50 Received VBG [Venous Blood Gas] Stat RT 06/26/24 14:38 Completed Venous Blood Gas Stat RT 12/12/24 14:45 Ordered Medical Decision Narrative: Patient with history and exam per above presenting for evaluation of altered mental status, hyperglycemia in the setting of type 1 diabetes. Diagnoses considered include DKA, HHS, electrolyte abnormality, including hyperkalemia, arrhythmia, thyroid storm, infectious precipitant, among others Initial EKG was independently visualized and interpreted by me significant for markedly peaked T waves, tachycardia, suggestive of hyperkalemia. 2 peripheral IVs were obtained however due to the patient's clinical hypovolemia blood was not able to be drawn from them. They flushed appropriately and thus hyperkalemia presumptive diagnosis was empirically treated in the setting of altered mental status and unstable vital signs including marked tachycardia with calcium gluconate, sodium bicarb, 2 L normal saline. At this time central line was emergently placed in right femoral vein. Labs were drawn following initial treatment, calcium chloride was administered given persistent tachycardia and mental status changes and continuous albuterol nebulizer was administered as well. Please refer to automated documentation regarding laboratory analysis ordered, which was independently interpreted by me significant for elevated anion gap, metabolic acidosis, hypernatremia, potassium within normal limits, again notably after initial treatment. Further treatment included administration of insulin bolus and infusion. Patient had Dukes catheter placed and is making urine at this time. Labs also significant for acute kidney injury thought to be prerenal in etiology. Patient has markedly elevated white blood cell count but no known infectious precipitant. At this time he denies from any chest pain and is able to provide slightly further history of preceding nausea and vomiting in the absence of fevers or chills. I discussed the case with hospital medicine physician who accepted patient for further management of DKA. Procedures Central Line Placement Right Femoral: Time Out Performed: Yes Patient Placed on Monitor/Pulse Ox: Yes MD Prep: mask and gloves Central Line Prep: Chlorhexidine scrub Local Anesthetic: lidocaine 1% Amount of anesthesia used (mL): 5 Ultrasound Used for Placement: Yes Central Line Lumen Inserted: triple Post Procedure: sutured in place, good blood return, all ports aspirated, flushed, capped and sterile dressing applied Patient Tolerated Procedure: well and no complications Critical Care Critical Care Time Critical Care Time: Yes Attestation: On 06/26/24, the high probability of a clinically significant, sudden or life threatening deterioration of the following system(s) required my full and direct attention, intervention and personal management. The time I documented below is in addition to time spent performing reported procedures but includes the following listed in this critical care notation. Total Time Total Critical Care Time: 60
[2024-06-26] MEDS: CALCIUM CHLORIDE 1GM/10ML SYRINGE (CRASH CART) 1 GM IVP (14:50)
[2024-06-26 14:56] LABS: Microscopic, Urine URINE MICROSCOPIC (MICROSCOPIC)
[2024-06-26 15:06] LABS: Acetone, Serum (Rapid) Moderate (None Detect)
[2024-06-26 15:08] LABS: Appearance,Urine CLEAR (Clear); Blood, Urine 3+ (Negative); Color,Urine YELLOW (Yellow); Glucose,Urine (UA) 3+ (Negative); Ketones,Urine 2+ (Negative); Leukocyte Esterase,Urine Negative (Negative); Nitrate,Urine Negative (Negative); PH,Urine 5.5 (5.0-8.5); Protein,Urine 1+ (Negative); Urobilinogen,Urine 0.2 EU/dl (0.2)
[2024-06-26 15:15] LABS: Albumin Level 4.8 g/dl (3.5-5.0); Chloride 116 mmol/L (98-107)
[2024-06-26 15:16] LABS: Potassium 4.5 mmoL/L (3.5-5.1)
[2024-06-26 15:18] LABS: Alanine Aminotransferase 32 U/L (12-78); Anion Gap 31.5 mEq/L (5-15); Aspartate Amino Transferase 33 U/L (17-59); Blood Urea Nitrogen 48 mg/dl (9-20); Creatinine Clearance Estimated 38 mL/min (50-200); Estimated Glomerular Filt Rate 39 ml/min (>60); GFR (African American) 47 ML/MIN (>60)
[2024-06-26 15:19] LABS: Albumin/Globulin Ratio 2.4 (1.1-1.8); Alkaline Phosphatase 114 U/L (38-126); Bilirubin,Total 0.6 mg/dl (0.2-1.3); Calcium 10.5 mg/dl (8.4-10.2); Magnesium 3.3 mg/dl (1.6-2.3); Phosphorous 3.2 mg/dl (2.5-4.5); Total Protein,Serum 6.8 g/dl (6.3-8.2)
[2024-06-26 15:20] LABS: Basophils # 0.4 K/mm3 (0-0.2); Eosinophils % 0.1 % (0.1-12.0); Hematocrit 49.2 % (42.0-52.0); Hemoglobin 15.2 g/dL (14.1-18.0); Lymphocytes # 2.6 K/mm3 (0.7-4.5); Lymphocytes % 7.3 % (10-50); Mean Corpuscular Hemoglobin 29.9 pg (27.0-31.2); Mean Corpuscular Volume 96.5 fl (80-94); Mean Platelet Volume 7.6 fl (7.4-10.4); Monocytes # 2.6 K/mm3 (0.1-1.0); Monocytes % 7.5 % (1.7-9.3); Neutrophils # 29.6 K/mm3 (1.8-7.8); Neutrophils % 84.2 % (37.0-80.0); Platelet Count 428 K/mm3 (142-424); Red Cell Distribution Width 13.5 % (11.5-17.5); White Blood Count 35.2 K/mm3 (4.8-10.8)
[2024-06-26 15:22] LABS: Bacteria,Urine Trace /lpf; Bilirubin,Urine 1+ (Negative); RBC,Urine TNTC #/hpf (0-3); Squamous Epithelial Cell,Urine Occasional #/hpf (0-5); WBC,Urine Occasional #/hpf (0-3)
[2024-06-26 15:23] LABS: Lactic Acid 3.5 mmol/L (0.7-2.1)
[2024-06-26 15:28] LABS: MANUAL DIFFERENTIAL MANUAL DIFFERENTIAL (MANUAL DIFF)
[2024-06-26 15:30] LABS: Carbon Dioxide 9 mmol/L (22.0-30.0); Glucose 771 mg/dl (74-100); Sodium 152 mmol/L (136-145)
[2024-06-26] MEDS: MAGNESIUM SULFATE IN WATER 2 GM/50 ML PIGGYBACK IV (15:30)
[2024-06-26 15:31] LABS: Creatine Kinase 122 U/L (55-170); Lipase 57 U/L (23-300)
[2024-06-26 15:32] LABS: Acetaminophen < 10 ug/ml (10-30); Ethyl Alcohol < 10 mg/dl (0-10); Salicylate < 1.0 mg/dL (2.0-20.0)
--- NOTE | 2024-06-26 15:40 | ECG_ITS ---
APPROVED REPORT Exam: Resting ECG HR:141 bpm ECG Measurements Heart Rate 141 AXES NC 105 P -84 QRSd 168 QRS 83 QT 253 T 127 QTc 335 Conclusion JUNCTIONAL TACHYCARDIA, POSSIBLE ATRIAL FLUTTER INTRAVENTRICULAR CONDUCTION DELAY [130+ ms QRS DURATION] MARKED ST ELEVATION, CONSIDER ANTERIOR INJURY [MARKED ST ELEVATION W/O NORMALLY INFLECTED T-WAVE IN V2-V5] Significant chatter, no overt STEMI Electronically signed by : MARLA BAEZ, 07/05/2024 07:14:03
[2024-06-26 15:55] LABS: Lymphocytes % 22 % (10-50); Monocytes % 5 % (2-9); Neutrophils % 73 % (42-76); Total Cells Counted 100
[2024-06-26 15:56] LABS: Platelet Estimate Slight Increase; RBC Morphology Normal
[2024-06-26 16:11] LABS: Free T4 (Free Thyroxine) 1.18 ng/dl (0.78-2.19)
[2024-06-26 16:14] LABS: Hemoglobin A1C 10.8 % (4.0-6.0)
[2024-06-26] MEDS: INSULIN HUMAN REGULAR 100 UNITS/ML 10ML VIAL 10 UNIT IVP (16:15)
[2024-06-26] MEDS: 0.9 % SODIUM CHLORIDE 1000ML 1,000 ML 150 ML IV (16:20)
[2024-06-26 16:26] LABS: Thyroid Stimulating Hormone 0.09 uIU/mL (0.465-4.68)
[2024-06-26] MEDS: INSULIN REGULAR, HUMAN 100 UNIT in 0.9 % SODIUM CHLORIDE 100 ML IV (16:27)
[2024-06-26 16:39] LABS: Troponin I < 0.01 ng/ml (0.00-0.034)
[2024-06-26] MEDS: SODIUM CHLORIDE 0.45 % 1,000 ML 999 ML IV ×2 (17:15→18:18)
[2024-06-26] MEDS: 0.45% NaCl w/20mEq KCL 1,000 ML 150 ML IV (17:41)
[2024-06-26 17:43] LABS: POC Glucose,Bedside 413 (70-110)
[2024-06-26 18:05] LABS: Benzodiazepines Screen,Urine Negative ng/ml (<200)
[2024-06-26 18:06] LABS: Amphetamine/Metha Screen,Urine Negative ng/ml (<1000); Barbiturates Screen,Urine Negative ng/ml (<200)
[2024-06-26 18:07] LABS: Methadone Screen,Urine Negative ng/ml (<300)
[2024-06-26 18:08] LABS: Cannabinoid Screen,Urine Positive ng/ml (<50); Cocaine Screen,Urine Negative ng/ml (<300)
[2024-06-26 18:09] LABS: Opiate Screen,Urine Negative ng/ml (<300)
[2024-06-26 18:10] LABS: Phencyclidine Screen,Urine Negative ng/ml (<25)
--- NOTE | 2024-06-26 18:25 | EXP.HP ---
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 Patient is currently very weak and history was obtained from ED provider, and parents at bedside. They state patient had been living with his sister for the past few days, and father thinks that he has not been taking his insulin or any of his other medications. He and his sister apparently went to [employer] last night to eat dinner and patient soon thereafter began to have nausea/vomiting which became progressively worse today. Father states patient continues to use cannabis. Mother states patient was recently evaluated by endocrinology who was set him up with [facility] [employer] [facility] and is working on setting up an insulin pump for patient. Father states patient at baseline does not eat much. Of note, patient was admitted for DKA 2 months ago at this facility. Recommend ED significant for pH 7.2, AGAP 31.5, blood glucose 771, bicarb 9, positive acetone's, ketonuria, WBC 35.2, sodium 152 (corrected 168), creatinine 2.1 (baseline 0.60), hemoglobin A1c 10.8. UDS was positive for THC. UA and CXR were noninfectious. Case discussed with ED provider and decision was made to admit patient for diabetic ketoacidosis. [facility] Disclaimer: The information contained in this section may have been updated after the patient was seen, as this information can be updated by other users. Medical History Vitamin D deficiency Vitamin B12 deficiency Diabetes mellitus type 1 Hyperthyroidism Family History Other Cancer Diabetes Hypertension Social History (Updated 04/29/24 @ 02:00 by Hansel Wan RN) Smoking Status: Unknown if ever smoked alcohol intake: never current occupational status: unemployed Travel in the last 8 weeks: None Have you lived/traveled outside [place] in past 30 days?: No Contact w/someone who lives/traveled outside US past 30 days?: No Exposure to someone with infectious disease in past 14 days?: No Do you have a fever (greater than 100.4 F or 38 C)?: No Have you tested positive for COVID-19: No Exposed to someone with COVID-19 in past 14 days?: No Do you have a sore throat?: No Do you have a cough?: No Do you have any weakness?: No Do you have any diarrhea?: No Are you experiencing any unusual bleeding?: No Do you have any muscle aches/pain?: No Do you have any abdominal pain?: No Are you experiencing loss of taste or smell?: No Other Medical History Have you received the Flu Vaccine for this season: Yes Have you received the Pneumonia Vaccine: No Meds Home Medications and Allergies Home Medications ?Medication ?Instructions ?Recorded ?Confirmed ?Type cholecalciferol (vitamin D3) 1,250 1,250 mcg PO WEEKLY 04/28/24 06/26/24 History mcg (50,000 unit) capsule cyanocobalamin (vitamin B-12) 1,000 mcg PO DAILY 04/28/24 06/26/24 History 1,000 mcg tablet insulin lispro 200 unit/mL (3 mL) 0 unit SQ DIRECTED 04/29/24 06/26/24 History subcutaneous pen (Humalog KwikPen U-200 Insulin) insulin glargine U-300 conc 300 20 unit (0.0667 mL) SQ HS #6 mL 05/01/24 06/26/24 Rx unit/mL (3 mL) subcutaneous pen (Toujeo Max U-300 SoloStar) pantoprazole 40 mg tablet,delayed See Rx Instructions .Route 05/01/24 06/26/24 Rx release .COMPLEX 30 days #30 tabs prochlorperazine maleate 5 mg 5 mg PO QID PRN nausea and 05/01/24 06/26/24 Rx tablet (Compazine) vomiting #14 tabs New Prescriptions to Start Prescriptions: Allergies Allergy/AdvReac Type Severity Reaction Status Date / Time No Known Allergies Allergy Verified 04/03/24 13:16 Exam Data for Last 24 hours Vital signs and Labs for Last 24 Hours: Temp Pulse Resp BP Pulse Ox O2 Del Method O2 Flow Rate 98.1 F 142 H 27 H 135/71 100 Nasal Cannula 2 06/26/24 17:06 06/26/24 18:00 06/26/24 18:00 06/26/24 18:00 06/26/24 18:00 06/26/24 18:00 06/26/24 18:00 Laboratory Results - last 24 hr 06/26/24 14:38: VBG pH 7.20 L, VBG pCO2 30.2 L, VBG pO2 47.5 H, VBG HCO3 11.4 L, VBG Total CO2 12.4 L, VBG O2 Saturation 79.0 H, VBG Base Excess -16.7 L, VBG Lactic Acid 5.0 H 06/26/24 14:40: WBC 35.2 H*, RBC 5.10, Hgb 15.2, Hct 49.2, MCV 96.5 H, MCH 29.9, MCHC 31.0 L, RDW 13.5, Plt Count 428 H, MPV 7.6, Neut % (Auto) 84.2 H, Lymph % (Auto) 7.3 L, [place] % (Auto) 7.5, Eos % (Auto) 0.1, Baso % (Auto) 1.0, Neut # (Auto) 29.6 H, Lymph # (Auto) 2.6, [place] # (Auto) 2.6 H, Eos # (Auto) 0.0, Baso # (Auto) 0.4 H, Total Counted 100, Neutrophils % (Manual) 73, Lymphocytes % (Manual) 22, Monocytes % (Manual) 5, Platelet Estimate Slight increase, RBC Morphology Normal, Sodium 152 H*, Potassium 4.5, Chloride 116 H, Carbon Dioxide 9 L*, Anion Gap 31.5 H, BUN 48 H, Creatinine 2.10 H, Estimated Creat Clear 38, Estimated GFR 39 L, Est GFR ( Amer) 47 L, Glucose 771 H*, Hemoglobin A1c 10.8 H, Lactate 3.5 H, Calcium 10.5 H, Phosphorus 3.2, Magnesium 3.3 H, Total Bilirubin 0.6, AST 33, ALT 32, Alkaline Phosphatase 114, Total Creatine Kinase 122, Total Protein 6.8, Albumin 4.8, Globulin 2.0, Albumin/Globulin Ratio 2.4 H, Lipase 57, TSH 0.09 L, Free T4 1.18, Salicylates < 1.0 L, Acetaminophen < 10 L, Plasma/Serum Alcohol < 10, Acetone Level Moderate 06/26/24 14:50: Urine Color Yellow, Urine Appearance Clear, Urine pH 5.5, Ur Specific [place] 1.020, Urine Protein 1+ A, Urine Glucose (UA) 3+, Urine Ketones 2+, Urine Blood 3+ A, Urine Nitrate Negative, Urine Bilirubin 1+ A, Urine Urobilinogen 0.2, Ur Leukocyte Esterase Negative, Urine RBC Tntc, Urine WBC Occasional, Ur Squamous Epith Cells Occasional, Urine Bacteria Trace 06/26/24 16:02: Troponin I < 0.01 06/26/24 17:31: POC Glucose 413 H* 06/26/24 17:34: Urine Opiates Screen Negative, Urine Methadone Screen Negative, Ur Barbituates Screen Negative, Ur Phencyclidine Scrn Negative, Ur Amphetamines Screen Negative, U Benzodiazepines Scrn Negative, Urine Cocaine Screen Negative, U Marijuana (THC) Screen Positive H I & O for Last 24 hours: Intake & Output 06/23/24 06/24/24 06/25/24 06/26/24 23:59 23:59 23:59 23:59 Intake Total 1191.609 / 1191.609 Output Total 800 / 800 Balance 391.609 / 391.609 Weight 49.895 kg Constitutional Constitutional: moderate distress and cachectic *Routine HEENT Exam Head: Present normocephalic Eye: Present EOMI and PERRL ENT: Present mucous membranes moist *Routine Neck Exam Neck: Present supple; Absent lymphadenopathy *Routine Respiratory Exam Respiratory: Present CTA bilaterally *Routine Cardiovascular Exam Cardiovascular: Present RRR *Routine Abdominal Exam Abdominal: Present soft, normoactive bowel sounds and tenderness Comments: Generalized abdominal tenderness without peritoneal signs. *Routine Rectal Exam Rectal:: deferred *Routine Genitalia Exam Genitalia:: deferred *Routine Extremities Exam Extremities: Absent cyanosis, clubbing or edema *Routine Skin Exam Skin: Present warm; Absent rash *Routine Neurological Exam Neurological: Present alert and oriented X3 Assessment and Plan *Assessment and plan (1) DKA (diabetic ketoacidosis): Status: Acute Category: Medical Code(s): E11.10 - Type 2 diabetes mellitus with ketoacidosis without coma (2) Diabetic gastroparesis: Status: Acute Category: Medical Code(s): E11.43 - Type 2 diabetes mellitus with diabetic autonomic (poly)neuropathy; K31.84 - Gastroparesis (3) Non compliance with medical treatment: Status: Acute Category: Medical Code(s): Z91.199 - Patient's noncompliance with other medical treatment and regimen due to unspecified reason (4) Diabetes mellitus type 1: Status: Acute Qualifiers: Diabetes mellitus complication status: with other specified complication Qualified Code(s): E10.69 - Type 1 diabetes mellitus with other specified complication Category: Medical Code(s): E10.9 - Type 1 diabetes mellitus without complications (5) Hypernatremia: Status: Acute Category: Medical Code(s): E87.0 - Hyperosmolality and hypernatremia Plan Barry Joe is a 23-year-old male with a medical history significant for type 1 diabetes, medication nonadherence, gastroparesis, 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 Patient is currently very weak and history was obtained from ED provider, and parents at bedside. They state patient had been living with his sister for the past few days, and father thinks that he has not been taking his insulin or any of his other medications. He and his sister apparently went to [employer] last night to eat dinner and patient soon thereafter began to have nausea/vomiting which became progressively worse today. Father states patient continues to use cannabis. Mother states patient was recently evaluated by endocrinology who was set him up with [facility] and is working on setting up an insulin pump for patient. Father states patient at baseline does not eat much. Of note, patient was admitted for DKA 2 months ago at this facility. Workup in the ED significant for pH 7.2, AGAP 31.5, blood glucose 771, bicarb 9, positive acetone's, ketonuria, WBC 35.2, sodium 152 (corrected 168), creatinine 2.1 (baseline 0.60), hemoglobin A1c 10.8. UDS was positive for THC. UA and CXR were noninfectious. Case discussed with ED provider and decision was made to admit patient for diabetic ketoacidosis. #Diabetic ketoacidosis #Severe hypernatremia #History of gastroparesis #History of THC use ? Presented with worsening nausea/vomiting and weakness after apparently eating at [employer] last night. ? History of medication nonadherence, poor appetite. Hemoglobin A1c 10.8. ? Initial pH 7.2, AGAP 31.5, blood glucose 771, bicarb 9, positive acetone's, ketonuria, WBC 35.2, sodium 152 (corrected 168), creatinine 2.1 (baseline 0.60). ? No signs of infection on CXR, UA. Leukocytosis likely reactive in setting of DKA. ? Received 2 L NS bolus in the ED. Ordered additional 2L 1/2 NS bolus given significant dehydration and hypernatremia. ? Continue 1/2 NS at 150 mL/h. ? Continue titratable insulin drip. ? Transition to D5 1/2 NS at 150 mL/h once blood glucose <250. ? Once AGAP closes x 2, if patient is tolerating diet bridge with Lantus 10 units and LDSSI. Stop insulin drip 2 hours thereafter. ? BMP every 4 hours. Next one at 7 PM. - Every 1h blood sugar checks. ? Follow-up on magnesium, phosphorus. ? IV Protonix 40 mg for GI prophylaxis. ? IV Phenergan for nausea. Resume p.o. Phenergan once tolerating p.o. intake for gastroparesis. ? Nutrition consulted. Tobacco abuse -Nicotine patch as needed -Tobacco cessation counseling given Full code DVT prophylaxis: Lovenox 30 mg
--- NOTE | 2024-06-26 18:25 | PC.NURSE ---
upon arrival to unit pt periarea has large amount of blood which was noted to be coming from pt urethra as well. pt was cleaned up and central line dressing was changed as well. area cleaned with chlorhexadine swab, bio patch put in placed and new dressing applied.
[2024-06-26 18:31] LABS: POC Glucose,Bedside 282 (70-110)
[2024-06-26 18:45] LABS: Reflex Lactic Add Lactic Reflex
[2024-06-26 19:26] LABS: Chloride 125 mmol/L (98-107); Potassium 3.8 mmoL/L (3.5-5.1)
[2024-06-26 19:29] LABS: Anion Gap 20.8 mEq/L (5-15); Blood Urea Nitrogen 37 mg/dl (9-20); Carbon Dioxide 16 mmol/L (22.0-30.0); Creatinine Clearance Estimated 49 mL/min (50-200); Estimated Glomerular Filt Rate 62 ml/min (>60); GFR (African American) 75 ML/MIN (>60)
[2024-06-26 19:30] LABS: Calcium 9.4 mg/dl (8.4-10.2); Glucose 276 mg/dl (74-100); Lactic Acid Follow Up (RFLX 1) 2.1 mmol/L (0.7-2.1); Magnesium 2.9 mg/dl (1.6-2.3)
[2024-06-26 19:35] LABS: Sodium 158 mmol/L (136-145)
[2024-06-26 19:36] LABS: Phosphorous 1.2 mg/dl (2.5-4.5)
[2024-06-26 19:42] LABS: Troponin I 0.01 ng/ml (0.00-0.034)
--- NOTE | 2024-06-26 20:01 | EXP.EVENT.NO ---
Patient with phosphorus 1.2 and sodium 158. Patient currently on DKA protocol normal saline 150 cc/h with potassium supplementation. Will change maintenance IV fluids to 1 half-normal saline and recheck sodium in 4 hours. Will also administer potassium phosphate 15 mmol x 1 and recheck phosphorus in AM.
[2024-06-26] MEDS: PANTOPRAZOLE 40MG VIAL 40 MG IV (20:04)
[2024-06-26 21:09] LABS: Reflex Lactic (2 hrs) Add Lactic Reflex
[2024-06-26] MEDS: D5W/0.45% NaCl w/20mEq KCL 1,000 ML 150 ML IV (21:42)
[2024-06-26 21:54] LABS: Lactic Acid Follow up (RFLX 2) 1.5 mmol/L (0.7-2.1)
[2024-06-26] MEDS: POTASSIUM PHOSPHATE 15 MMOL in 0.9 % SODIUM CHLORIDE 250 ML 63.75 MMOL IV (21:54)
[2024-06-26 23:15] LABS: VBG Base Excess -6.3 mmol/L (-2.4-2.3); VBG HCO3 19.5 mmol/L (23-30); VBG Oxygen Saturation 96.5 % (50-70); VBG PCO2 36.8 mmol/L (35-51); VBG PH 7.34 mmol/L (7.31-7.41); VBG PO2 87.1 mmol/L (28-40); VBG Total CO2 20.6 mmol/L (23-27)
[2024-06-26] MEDS: PROMETHAZINE HCL 25MG/ML 1ML VIAL 25 MG IV (23:27)
[2024-06-26 23:42] LABS: Anion Gap 11.1 mEq/L (5-15); Blood Urea Nitrogen 29 mg/dl (9-20); Calcium 8.7 mg/dl (8.4-10.2); Carbon Dioxide 22 mmol/L (22.0-30.0); Chloride 124 mmol/L (98-107); Creatinine Clearance Estimated 69 mL/min (50-200); Estimated Glomerular Filt Rate 92 ml/min (>60); GFR (African American) 111 ML/MIN (>60); Glucose 221 mg/dl (74-100); Phosphorous 2.5 mg/dl (2.5-4.5); Potassium 4.1 mmoL/L (3.5-5.1)
[2024-06-27] VITALS (17 sets, daily range): BP systolic 111–146; BP diastolic 69–96; PULSE 65–111; RESP 14–20; TEMP 36.5–37.4; O2SAT 97–100; BMI 26.6
[2024-06-27 00:08] LABS: Sodium 153 mmol/L (136-145)
[2024-06-27] MEDS: DEXTROSE 5 % IN WATER 1,000 ML 100 ML IV (01:30)
[2024-06-27] MEDS: INSULIN GLARGINE 20 EACH SUBCUT (02:04)
[2024-06-27 03:30] LABS: Chloride 125 mmol/L (98-107)
[2024-06-27 03:32] LABS: Blood Urea Nitrogen 24 mg/dl (9-20); Creatinine Clearance Estimated 77 mL/min (50-200); Estimated Glomerular Filt Rate 104 ml/min (>60); GFR (African American) 125 ML/MIN (>60)
[2024-06-27 03:33] LABS: Calcium 8.5 mg/dl (8.4-10.2); Carbon Dioxide 27 mmol/L (22.0-30.0); Glucose 124 mg/dl (74-100); Magnesium 1.9 mg/dl (1.6-2.3); Phosphorous 2.3 mg/dl (2.5-4.5)
[2024-06-27 03:35] LABS: Sodium 156 mmol/L (136-145)
[2024-06-27] MEDS: MAGNESIUM SULFATE IN WATER 2 GM/50 ML PIGGYBACK IV (05:10)
[2024-06-27 05:43] LABS: POC Glucose,Bedside 96 (70-110)
[2024-06-27 05:43] LABS: POC Glucose,Bedside 99 (70-110)
[2024-06-27 06:11] LABS: HCV Ab Non Reactive (Non Reactive)
[2024-06-27 07:35] LABS: Chloride 122 mmol/L (98-107)
[2024-06-27 07:36] LABS: Potassium 3.9 mmoL/L (3.5-5.1)
[2024-06-27 07:38] LABS: Anion Gap 5.9 mEq/L (5-15); Blood Urea Nitrogen 20 mg/dl (9-20); Carbon Dioxide 26 mmol/L (22.0-30.0); Creatinine Clearance Estimated 146 mL/min (50-200); Estimated Glomerular Filt Rate 104 ml/min (>60); GFR (African American) 125 ML/MIN (>60)
[2024-06-27 07:39] LABS: Calcium 8.4 mg/dl (8.4-10.2); Glucose 172 mg/dl (74-100); Magnesium 2.8 mg/dl (1.6-2.3); Phosphorous 2.5 mg/dl (2.5-4.5)
[2024-06-27 08:08] LABS: Sodium 150 mmol/L (136-145)
[2024-06-27 08:16] LABS: POC Glucose,Bedside 132 (70-110)
[2024-06-27 08:16] LABS: POC Glucose,Bedside 146 (70-110)
[2024-06-27 08:16] LABS: POC Glucose,Bedside 137 (70-110)
[2024-06-27 08:16] LABS: POC Glucose,Bedside 160 (70-110)
[2024-06-27 08:16] LABS: POC Glucose,Bedside 200 (70-110)
[2024-06-27 08:16] LABS: POC Glucose,Bedside 225 (70-110)
[2024-06-27 08:16] LABS: POC Glucose,Bedside 179 (70-110)
[2024-06-27 08:16] LABS: POC Glucose,Bedside 173 (70-110)
[2024-06-27 08:16] LABS: POC Glucose,Bedside 228 (70-110)
[2024-06-27 08:16] LABS: POC Glucose,Bedside 229 (70-110)
[2024-06-27 08:16] LABS: POC Glucose,Bedside 191 (70-110)
[2024-06-27] MEDS: LACTATED RINGERS 1000ML 1,000 ML 100 ML IV (08:21)
[2024-06-27] MEDS: ENOXAPARIN 40MG/0.4ML SYRINGE 40 MG SUBCUT (08:21)
[2024-06-27 12:23] LABS: POC Glucose,Bedside 130 (70-110)
[2024-06-27] MEDS: PROCHLORPERAZINE 10MG/2ML VIAL 10 MG IV ×2 (12:36→23:00)
[2024-06-27 13:19] LABS: Chloride 121 mmol/L (98-107); Potassium 3.7 mmoL/L (3.5-5.1)
[2024-06-27 13:22] LABS: Anion Gap 6.7 mEq/L (5-15); Blood Urea Nitrogen 17 mg/dl (9-20); Carbon Dioxide 27 mmol/L (22.0-30.0); Creatinine Clearance Estimated 164 mL/min (50-200); Estimated Glomerular Filt Rate 119 ml/min (>60); GFR (African American) 144 ML/MIN (>60)
[2024-06-27 13:23] LABS: Glucose 90 mg/dl (74-100); Magnesium 2.4 mg/dl (1.6-2.3)
[2024-06-27 13:36] LABS: Phosphorous 1.8 mg/dl (2.5-4.5); Sodium 151 mmol/L (136-145)
[2024-06-27] MEDS: NEOSPORIN OINTMENT 0.9GM UDP 1 EACH TP (13:38)
[2024-06-27 13:46] LABS: POC Glucose,Bedside 75 (70-110)
[2024-06-27] MEDS: POTASSIUM PHOSPHATE 15 MMOL in 0.9 % SODIUM CHLORIDE 250 ML 63.75 MMOL IV (14:20)
[2024-06-27 16:32] LABS: HIV Combo NEGATIVE (Negative)
[2024-06-27] MEDS: DEXTROSE 5 % IN WATER 1,000 ML 75 ML IV (16:50)
[2024-06-27 16:58] LABS: POC Glucose,Bedside 131 (70-110)
--- NOTE | 2024-06-27 18:14 | PC.NURSE ---
VS stable. patient remained on room air. NSR on monitor. BS maintained with d5 water at 75. Femoral line d/c'd and removed today as well as kelly catheter. Patient able to void 800 ml out immediately after kelly d/c'd.
--- NOTE | 2024-06-27 18:48 | P.PN_ITS ---
Subjective *Date: 06/27/24 *Time: 08:34 Interval history: Patient still quite fatigued. Showing improvement clinically however. Sodium gradually coming down. Stable on room air. No nausea or vomiting. Kidney function normalizing. Gap closed, on basal bolus regimen. Medical Exam Vital signs and Labs for Last 24 Hours: Vital Signs Temp Pulse Pulse Resp BP Pulse Ox O2 Del Method 06/27/24 18:45 Room Air 06/27/24 18:00 65 16 146/84 H 100 Room Air 06/27/24 17:00 Room Air 06/27/24 16:00 70 06/27/24 16:00 Room Air 06/27/24 16:00 77 16 125/78 100 Room Air 06/27/24 16:00 98.2 F 06/27/24 15:00 Room Air 06/27/24 14:00 79 16 124/77 100 Room Air 06/27/24 13:00 Room Air 06/27/24 13:00 91 H 16 140/84 100 Room Air 06/27/24 12:00 90 06/27/24 12:00 98.6 F 06/27/24 11:00 Room Air 06/27/24 10:00 66 16 141/96 H 100 Room Air 06/27/24 09:00 Room Air 06/27/24 09:00 67 16 123/70 100 Room Air 06/27/24 08:00 70 06/27/24 08:00 98.2 F 06/27/24 08:00 Room Air 06/27/24 08:00 75 16 131/91 H 100 Room Air 06/27/24 06:58 Room Air 06/27/24 06:00 111 H 18 121/84 100 Room Air 06/27/24 05:00 79 18 127/81 97 Room Air 06/27/24 05:00 Room Air 06/27/24 04:00 90 06/27/24 04:00 77 100 Room Air 06/27/24 04:00 97.7 F 06/27/24 03:00 97 H 14 123/72 98 Nasal Cannula 06/27/24 03:00 Nasal Cannula 06/27/24 02:00 87 20 130/79 97 06/27/24 01:00 85 18 129/79 98 Nasal Cannula 06/27/24 01:00 Nasal Cannula 06/27/24 00:00 98.2 F 06/27/24 00:00 90 06/27/24 00:00 94 H 99 Nasal Cannula 06/27/24 00:00 100 H 16 124/74 100 Nasal Cannula 06/26/24 23:00 118 H 15 141/77 H 99 Nasal Cannula 06/26/24 23:00 Nasal Cannula 06/26/24 22:00 99 H 119/70 100 Nasal Cannula 06/26/24 21:00 117 H 18 121/70 98 Nasal Cannula 06/26/24 21:00 Nasal Cannula 06/26/24 20:00 110 H 06/26/24 20:00 98.2 F 118 H 20 122/74 97 Nasal Cannula 06/26/24 20:00 112 H 24 99 Nasal Cannula 06/26/24 19:00 109 H 19 114/79 100 Nasal Cannula 06/26/24 18:55 Nasal Cannula O2 Flow Rate 06/27/24 18:45 06/27/24 18:00 06/27/24 17:00 06/27/24 16:00 06/27/24 16:00 06/27/24 16:00 06/27/24 16:00 06/27/24 15:00 06/27/24 14:00 06/27/24 13:00 06/27/24 13:00 06/27/24 12:00 06/27/24 12:00 06/27/24 11:00 06/27/24 10:00 06/27/24 09:00 06/27/24 09:00 06/27/24 08:00 06/27/24 08:00 06/27/24 08:00 06/27/24 08:00 06/27/24 06:58 06/27/24 06:00 06/27/24 05:00 06/27/24 05:00 06/27/24 04:00 06/27/24 04:00 06/27/24 04:00 06/27/24 03:00 2 06/27/24 03:00 2 06/27/24 02:00 06/27/24 01:00 2 06/27/24 01:00 2 06/27/24 00:00 06/27/24 00:00 06/27/24 00:00 2 06/27/24 00:00 2 06/26/24 23:00 2 06/26/24 23:00 2 06/26/24 22:00 2 06/26/24 21:00 2 06/26/24 21:00 2 06/26/24 20:00 06/26/24 20:00 2 06/26/24 20:00 2 06/26/24 19:00 2 06/26/24 18:55 2 Intake and Output 06/27/24 06/27/24 06/27/24 07:59 15:59 23:59 Intake Total 756.902 / 2778.902 1052 / 2778.902 970 / 2778.902 Output Total 560 / 560 Balance 196.902 / 2218.902 1052 / 2218.902 970 / 2218.902 Intake: Intake, Oral Amount 240 / 240 Intake, Total IV Amount 756.902 / 2538.902 812 / 2538.902 970 / 2538.902 D5W/0.45% NaCl w/20mEq KCL 1, 510 / 510 000 ml @ 150 mls/hr IV .Q6H40M [facility] Rx#:[id number] Dextrose 5 % in Water 1,000 ml 812 / 1022 210 / 1022 @ 100 mls/hr IV .Q10H [facility] Rx#: [id number] Lactated Ringers 1000ML 1,000 760 / 760 ml @ 75 mls/hr IV .[id number] [facility] Rx#:[id number] Potassium Phosphate 15 mmol In 240 / 240 0.9 % Sodium Chloride 250 ml @ 63.75 mls/hr IV ONCE ONE Rx#: [id number] Output: Output, Urine Amount 560 / 560 Other: Number of Unmeasured Voids 0 Weight 81.647 kg 81.647 kg Patient Weight 06/27/24 23:59 Weight 81.647 kg Laboratory Results - last 24 hr 06/26/24 14:40: Hepatitis C Antibody Non reactive, HIV Ag/Ab Combo Qual Negative 06/26/24 14:45: VBG pH 7.34, VBG pCO2 36.8, VBG pO2 87.1 H, VBG HCO3 19.5 L, VBG Total CO2 20.6 L, VBG O2 Saturation 96.5 H, VBG Base Excess -6.3 L, VBG Lactic Acid 2.0 06/26/24 19:03: Sodium 158 H*, Potassium 3.8, Chloride 125 H, Carbon Dioxide 16 L, Anion Gap 20.8 H, BUN 37 H, Creatinine 1.40 H D, Estimated Creat Clear 49, Estimated GFR 62, Est GFR ( Amer) 75 D, Glucose 276 H D, Lactate 2.1, Calcium 9.4, Phosphorus 1.2 L D, Magnesium 2.9 H D, Troponin I 0.01 06/26/24 19:24: POC Glucose 228 H 06/26/24 19:59: POC Glucose 229 H 06/26/24 21:04: POC Glucose 191 H 06/26/24 21:24: Lactate 1.5 06/26/24 21:53: POC Glucose 179 H 06/26/24 23:00: Sodium 153 H*, Potassium 4.1, Chloride 124 H, Carbon Dioxide 22, Anion Gap 11.1, BUN 29 H, Creatinine 1.00 D, Estimated Creat Clear 69, Estimated GFR 92, Est GFR ( Amer) 111 D, Glucose 221 H, Calcium 8.7, Phosphorus 2.5 D, Magnesium 2.0 D 06/26/24 23:05: POC Glucose 225 H 06/27/24 00:14: POC Glucose 200 H 06/27/24 01:06: POC Glucose 173 H 06/27/24 02:09: POC Glucose 146 H 06/27/24 03:03: POC Glucose 137 H 06/27/24 03:20: Sodium 156 H*, Potassium 4.0, Chloride 125 H, Carbon Dioxide 27, Anion Gap 8.0, BUN 24 H, Creatinine 0.90, Estimated Creat Clear 77, Estimated GFR 104, Est GFR ( Amer) 125, Glucose 124 H D, Calcium 8.5, Phosphorus 2.3 L, Magnesium 1.9 06/27/24 04:05: POC Glucose 96 06/27/24 05:12: POC Glucose 99 06/27/24 06:07: POC Glucose 132 H 06/27/24 07:07: POC Glucose 160 H 06/27/24 07:08: Sodium 150 H, Potassium 3.9, Chloride 122 H, Carbon Dioxide 26, Anion Gap 5.9, BUN 20, Creatinine 0.90, Estimated Creat Clear 146, Estimated GFR 104, Est GFR ( Amer) 125, Glucose 172 H D, Calcium 8.4, Phosphorus 2.5, Magnesium 2.8 H D 06/27/24 10:11: POC Glucose 130 H 06/27/24 12:13: Sodium 151 H*, Potassium 3.7, Chloride 121 H, Carbon Dioxide 27, Anion Gap 6.7, BUN 17, Creatinine 0.80, Estimated Creat Clear 164, Estimated GFR 119, Est GFR ( Amer) 144, Glucose 90 D, Calcium 9.0, Phosphorus 1.8 L D, Magnesium 2.4 H D 06/27/24 13:04: POC Glucose 75 06/27/24 16:48: POC Glucose 131 H I & O for Labs for Last 24 Hours: Intake & Output 06/24/24 06/25/24 06/26/24 06/27/24 23:59 23:59 23:59 23:59 Intake Total 1785.167 / 6390.242 1815.902 / 2778.902 Output Total 800 / 1300 560 / 560 Balance 985.167 / 698.363 6265.902 / 2218.902 Weight 42.893 kg 81.647 kg Microbiology Reports for the Last 24 Hours: Microbiology 06/26/24 14:40 Blood Blood Culture - Preliminary NO GROWTH AFTER 24 HOURS 06/26/24 14:40 Blood Blood Culture - Preliminary NO GROWTH AFTER 24 HOURS Constitutional: Present no acute distress, thin and chronically ill appearing Head: Present atraumatic and normocephalic ENT: Present normal exam Neck: Present normal inspection Respiratory: Present normal respiratory effort; Absent rhonchi, wheezes or crackles Cardiac: Present Reg Rate and Rhythm GI: Present soft and normal bowel sounds; Absent distention, tenderness, guarding or rebound Extremities: Present normal inspection and full ROM Skin: Present intact; Absent erythema Neuro: Present Grossly Intact, alert, awake, oriented x 3 and moves all extremities Assessment and Plan *Assessment and plan (1) Hypernatremia: Status: Acute Category: Medical Code(s): E87.0 - Hyperosmolality and hypernatremia (2) DKA (diabetic ketoacidosis): Status: Acute Category: Medical Code(s): E11.10 - Type 2 diabetes mellitus with ketoacidosis without coma (3) Diabetic gastroparesis: Status: Acute Category: Medical Code(s): E11.43 - Type 2 diabetes mellitus with diabetic autonomic (poly)neuropathy; K31.84 - Gastroparesis (4) Non compliance with medical treatment: Status: Acute Category: Medical Code(s): Z91.199 - Patient's noncompliance with other medical treatment and regimen due to unspecified reason (5) Diabetes mellitus type 1: Status: Acute Qualifiers: Diabetes mellitus complication status: with other specified complication Qualified Code(s): E10.69 - Type 1 diabetes mellitus with other specified complication Category: Medical Code(s): E10.9 - Type 1 diabetes mellitus without complications Plan Barry Joe is a 23-year-old male with a medical history significant for type 1 diabetes, medication nonadherence, gastroparesis, 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 Tito solano is currently very weak and history was obtained from ED provider, and parents at bedside. They state patient had been living with his sister for the past few days, and father thinks that he has not been taking his insulin or any of his other medications. He and his sister apparently went to [employer] last night to eat dinner and patient soon thereafter began to have nausea/vomiting which be came progressively worse today. Father states patient continues to use cannabis. Mother states patient was recently evaluated by endocrinology who was set him up with [employer] [facility] and is working on setting up an insulin pump for patient. Father states patient at baseline does not eat much. Of note, patient was admitted for DKA 2 months ago at this facility. Workup in the ED significant for pH 7.2, AGAP 31.5, blood glucose 771, bicarb 9, positive acetone's, ketonuria, WBC 35.2, sodium 152 (corrected 168), creatinine 2.1 (baseline 0.60), hemoglobin A1c 10.8. UDS was positive for THC. UA and CXR were noninfectious. Case discussed with ED provider and decision was made to admit patient for diabetic ketoacidosis. Seeing some improvement in hypernatremia though still above 150 this morning. Continues to require inpatient management. Close monitoring of sodium correction. Problems addressed as follows: #Diabetic ketoacidosis #Severe hypernatremia #History of gastroparesis #History of THC use ? Presented with worsening nausea/vomiting and weakness after apparently eating at [employer] last night. ? History of medication nonadherence, poor appetite. Hemoglobin A1c 10.8. ? Gap closed overnight. BUN 26 on morning labs. Sodium remains elevated at 152, chloride 122. Continue BMP every 6 hours. Repeat CBC, CMP, magnesium ordered for the morning. -White count normalized. -Correcting sodium between 8 to 10 mEq a day. Continue fluids with 75 cc LR and 75 cc D5 water. -On basal bolus regimen at this time. Sliding scale insulin with fingersticks ACHS -Magnesium 2.8, phosphorus 2.5. Repeat level ordered for this afternoon ? IV Protonix 40 mg for GI prophylaxis. ? IV Phenergan for nausea. Resume p.o. Phenergan once tolerating p.o. intake for gastroparesis. ? Nutrition consulted. -High risk for decompensation. Treatments necessitating close monitoring. Tobacco abuse -Nicotine patch as needed -Tobacco cessation counseling given Full code DVT prophylaxis: Lovenox 30 mg
[2024-06-27] MEDS: SODIUM CHLORIDE 0.9% 25ML BAG 25 ML IV (20:53)
[2024-06-27] MEDS: PROMETHAZINE HCL 25MG/ML 1ML VIAL 25 MG IV (20:53)
[2024-06-27] MEDS: SODIUM CHLORIDE 0.9% 10ML VIAL 10 ML IV (20:54)
[2024-06-27] MEDS: PANTOPRAZOLE 40MG VIAL 40 MG IV (20:54)
[2024-06-27] MEDS: LACTATED RINGERS 1000ML 1,000 ML 75 ML IV (20:59)
[2024-06-27 22:24] LABS: Chloride 118 mmol/L (98-107)
[2024-06-27 22:25] LABS: Potassium 3.4 mmoL/L (3.5-5.1)
[2024-06-27 22:28] LABS: Anion Gap 6.4 mEq/L (5-15); Blood Urea Nitrogen 11 mg/dl (9-20); Calcium 8.6 mg/dl (8.4-10.2); Carbon Dioxide 29 mmol/L (22.0-30.0); Creatinine Clearance Estimated 164 mL/min (50-200); Estimated Glomerular Filt Rate 119 ml/min (>60); GFR (African American) 144 ML/MIN (>60); Glucose 107 mg/dl (74-100)
[2024-06-27 22:29] LABS: Sodium 150 mmol/L (136-145)
[2024-06-28] VITALS (10 sets, daily range): BP systolic 114–144; BP diastolic 63–98; PULSE 53–90; RESP 14–16; TEMP 36.9–37.4; O2SAT 91–100; BMI 26.6
[2024-06-28 00:48] LABS: POC Glucose,Bedside 103 (70-110)
[2024-06-28] MEDS: PROCHLORPERAZINE 10MG/2ML VIAL 10 MG IV ×2 (05:04→20:52)
[2024-06-28 05:15] LABS: POC Glucose,Bedside 90 (70-110)
[2024-06-28] MEDS: DEXTROSE 5 % IN WATER 1,000 ML 75 ML IV (06:13)
[2024-06-28 07:48] LABS: Basophils % 0.4 % (0.1-2.0); Eosinophils % 0.3 % (0.1-12.0); Hematocrit 33.8 % (42.0-52.0); Hemoglobin 11.6 g/dL (14.1-18.0); Lymphocytes # 1.9 K/mm3 (0.7-4.5); Lymphocytes % 23.9 % (10-50); Mean Corpuscular HGB Conc 34.2 g/dL (31.8-35.4); Mean Corpuscular Hemoglobin 30.2 pg (27.0-31.2); Mean Corpuscular Volume 88.1 fl (80-94); Mean Platelet Volume 7.1 fl (7.4-10.4); Monocytes # 0.7 K/mm3 (0.1-1.0); Monocytes % 9.3 % (1.7-9.3); Neutrophils # 5.1 K/mm3 (1.8-7.8); Neutrophils % 66.2 % (37.0-80.0); Platelet Count 217 K/mm3 (142-424); Red Blood Count 3.84 M/mm3 (4.60-6.20); Red Cell Distribution Width 13.8 % (11.5-17.5); White Blood Count 7.8 K/mm3 (4.8-10.8)
[2024-06-28 08:06] LABS: Chloride 116 mmol/L (98-107); Potassium 3.2 mmoL/L (3.5-5.1); Sodium 148 mmol/L (136-145)
[2024-06-28 08:09] LABS: Anion Gap 4.2 mEq/L (5-15); Blood Urea Nitrogen 10 mg/dl (9-20); Calcium 8.3 mg/dl (8.4-10.2); Carbon Dioxide 31 mmol/L (22.0-30.0); Creatinine Clearance Estimated 188 mL/min (50-200); Estimated Glomerular Filt Rate 139 ml/min (>60); GFR (African American) 168 ML/MIN (>60); Glucose 103 mg/dl (74-100)
[2024-06-28 08:10] LABS: Magnesium 1.9 mg/dl (1.6-2.3); Phosphorous 2.3 mg/dl (2.5-4.5)
--- NOTE | 2024-06-28 08:33 | P.PN_ITS ---
Subjective *Date: 06/28/24 *Time: 18:16 Interval history: Patient still quite fatigued today however feeling somewhat better. Poor appetite. Hemodynamically stable. Remains closed. No nausea or vomiting. Stable on room air. Medical Exam Vital signs and Labs for Last 24 Hours: Vital Signs Temp Pulse Pulse Pulse Resp BP BP 06/28/24 08:00 63 14 144/95 H 06/28/24 06:50 06/28/24 06:00 74 15 114/66 06/28/24 05:00 06/28/24 04:00 70 06/28/24 04:00 56 L 06/28/24 04:00 54 L 15 137/97 H 06/28/24 04:00 98.4 F 06/28/24 02:57 06/28/24 02:00 61 14 138/88 06/28/24 00:42 06/28/24 00:00 60 06/28/24 00:00 53 L 14 127/85 06/28/24 00:00 98.8 F 06/27/24 23:00 06/27/24 22:00 83 15 116/69 06/27/24 21:00 06/27/24 20:00 79 17 111/69 06/27/24 20:00 06/27/24 20:00 70 06/27/24 20:00 99.3 F 06/27/24 18:45 06/27/24 18:00 65 16 146/84 H 06/27/24 17:00 06/27/24 16:00 70 06/27/24 16:00 06/27/24 16:00 77 16 125/78 06/27/24 16:00 98.2 F 06/27/24 15:00 06/27/24 14:00 79 16 124/77 06/27/24 13:00 06/27/24 13:00 91 H 16 140/84 06/27/24 12:00 90 06/27/24 12:00 98.6 F 06/27/24 11:00 06/27/24 10:00 66 16 141/96 H 06/27/24 09:00 06/27/24 09:00 67 16 123/70 Pulse Ox O2 Del Method 06/28/24 08:00 100 Room Air 06/28/24 06:50 Room Air 06/28/24 06:00 100 Room Air 06/28/24 05:00 Room Air 06/28/24 04:00 06/28/24 04:00 98 Room Air 06/28/24 04:00 98 Room Air 06/28/24 04:00 06/28/24 02:57 Room Air 06/28/24 02:00 97 Room Air 06/28/24 00:42 Room Air 06/28/24 00:00 06/28/24 00:00 91 L Room Air 06/28/24 00:00 06/27/24 23:00 Room Air 06/27/24 22:00 100 Room Air 06/27/24 21:00 Room Air 06/27/24 20:00 98 Room Air 06/27/24 20:00 99 Room Air 06/27/24 20:00 06/27/24 20:00 06/27/24 18:45 Room Air 06/27/24 18:00 100 Room Air 06/27/24 17:00 Room Air 06/27/24 16:00 06/27/24 16:00 Room Air 06/27/24 16:00 100 Room Air 06/27/24 16:00 06/27/24 15:00 Room Air 06/27/24 14:00 100 Room Air 06/27/24 13:00 Room Air 06/27/24 13:00 100 Room Air 06/27/24 12:00 06/27/24 12:00 06/27/24 11:00 Room Air 06/27/24 10:00 100 Room Air 06/27/24 09:00 Room Air 06/27/24 09:00 100 Room Air Intake and Output 06/27/24 06/28/24 06/28/24 23:59 07:59 15:59 Intake Total 970 / 2778.902 2078 / 2079 Output Total 620 / 620 Balance 970 / 2218.902 1459 / 1459 Intake: Intake, Total IV Amount 970 / 2532 2078 / 207 Dextrose 5 % in Water 1,000 ml 210 / 1022 @ 100 mls/hr IV .Q10H [facility]O Rx#: [id number] Dextrose 5 % in Water 1,000 ml 1057 / 1057 @ 75 mls/hr IV .[id number] [facility] Rx# :[id number] Lactated Ringers 1000ML 1,000 760 / 760 1022 / 1022 ml @ 75 mls/hr IV .[id number] [facility] Rx#:[id number] Output: Output, Urine Amount 620 / 620 Other: Weight 81.647 kg Patient Weight 06/28/24 23:59 Weight 81.647 kg Laboratory Results - last 24 hr 06/26/24 14:40: HIV Ag/Ab Combo Qual Negative 06/27/24 10:11: POC Glucose 130 H 06/27/24 12:13: Sodium 151 H*, Potassium 3.7, Chloride 121 H, Carbon Dioxide 27, Anion Gap 6.7, BUN 17, Creatinine 0.80, Estimated Creat Clear 164, Estimated GFR 119, Est GFR ( Amer) 144, Glucose 90 D, Calcium 9.0, Phosphorus 1.8 L D, Magnesium 2.4 H D 06/27/24 13:04: POC Glucose 75 06/27/24 16:48: POC Glucose 131 H 06/27/24 20:58: POC Glucose 103 06/27/24 22:06: Sodium 150 H, Potassium 3.4 L, Chloride 118 H, Carbon Dioxide 29, Anion Gap 6.4, BUN 11 D, Creatinine 0.80, Estimated Creat Clear 164, Estimated GFR 119, Est GFR ( Amer) 144, Glucose 107 H, Calcium 8.6 06/28/24 04:56: POC Glucose 90 06/28/24 07:10: WBC 7.8 D, RBC 3.84 L, Hgb 11.6 L, Hct 33.8 L, MCV 88.1, MCH 30.2, MCHC 34.2, RDW 13.8, Plt Count 217 D, MPV 7.1 L, Neut % (Auto) 66.2, Lymph % (Auto) 23.9, [place] % (Auto) 9.3, Eos % (Auto) 0.3, Baso % (Auto) 0.4, Neut # (Auto) 5.1, Lymph # (Auto) 1.9, [place] # (Auto) 0.7, Eos # (Auto) 0.0, Baso # (Auto) 0.0, Sodium 148 H, Potassium 3.2 L, Chloride 116 H, Carbon Dioxide 31 H , Anion Gap 4.2 L, BUN 10, Creatinine 0.70, Estimated Creat Clear 188, Estimated GFR 139, Est GFR ( Amer) 168, Glucose 103 H, Calcium 8.3 L, Phosphorus 2.3 L D, Magnesium 1.9 D I & O for Labs for Last 24 Hours: Intake & Output 06/25/24 06/26/24 06/27/24 06/28/24 23:59 23:59 23:59 23:59 Intake Total 1785.167 / 1549.576 3571.902 / 2778.902 2078 / 2078 Output Total 800 / 1300 560 / 560 620 / 620 Balance 985.167 / 813.685 8464.902 / 2218.902 1459 / 1459 Weight 42.893 kg 81.647 kg 81.647 kg Microbiology Reports for the Last 24 Hours: Microbiology 06/26/24 14:40 Blood Blood Culture - Preliminary NO GROWTH AFTER 24 HOURS 06/26/24 14:40 Blood Blood Culture - Preliminary NO GROWTH AFTER 24 HOURS Constitutional: Present no acute distress, thin and chronically ill appearing Head: Present atraumatic and normocephalic ENT: Present normal exam Neck: Present normal inspection Respiratory: Present normal respiratory effort; Absent rhonchi, wheezes or crackles Cardiac: Present Reg Rate and Rhythm GI: Present soft and normal bowel sounds; Absent distention, tenderness, guarding or rebound Extremities: Present normal inspection and full ROM Skin: Present intact; Absent erythema Neuro: Present Grossly Intact, alert, awake, oriented x 3 and moves all extremities Assessment and Plan *Assessment and plan (1) Hypernatremia: Status: Acute Category: Medical Code(s): E87.0 - Hyperosmolality and hypernatremia (2) DKA (diabetic ketoacidosis): Status: Acute Category: Medical Code(s): E11.10 - Type 2 diabetes mellitus with ketoacidosis without coma (3) Diabetic gastroparesis: Status: Acute Category: Medical Code(s): E11.43 - Type 2 diabetes mellitus with diabetic autonomic (poly)neuropathy; K31.84 - Gastroparesis (4) Non compliance with medical treatment: Status: Acute Category: Medical Code(s): Z91.199 - Patient's noncompliance with other medical treatment and regimen due to unspecified reason (5) Diabetes mellitus type 1: Status: Acute Qualifiers: Diabetes mellitus complication status: with other specified complication Qualified Code(s): E10.69 - Type 1 diabetes mellitus with other specified complication Category: Medical Code(s): E10.9 - Type 1 diabetes mellitus without complications Plan Barry Joe is a 23-year-old male with a medical history significant for type 1 diabetes, medication nonadherence, gastroparesis, 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 Patient is currently very weak and history was obtained from ED provider, and parents at bedside. They state patient had been living with his sister for the past few days, and father thinks that he has not been taking his insulin or any of his other medications. He and his sister apparently went to [employer] last night to eat dinner and patient soon thereafter began to have nausea/vomiting which became progressively worse today. Father states patient continues to use cannabis. Mother states patient was recently evaluated by endocrinology who was set him up with [employer] 3 and is working on setting up an insulin pump for patient. Father states patient at baseline does not eat much. Of note, patient was admitted for DKA 2 months ago at this facility. Workup in the ED significant for pH 7.2, AGAP 31.5, blood glucose 771, bicarb 9, positive acetone's, ketonuria, WBC 35.2, sodium 152 (corrected 168), creatinine 2.1 (baseline 0.60), hemoglobin A1c 10.8. UDS was positive for THC. UA and CXR were noninfectious. Case discussed with ED provider and decision was made to admit patient for diabetic ketoacidosis. Seeing some improvement in hypernatremia, continues to require inpatient management. Close monitoring of sodium correction. Problems addressed as follows: #Diabetic ketoacidosis #Severe hypernatremia #History of gastroparesis #History of THC use ? Presented with worsening nausea/vomiting and weakness after apparently eating at [employer] last night. ? History of medication nonadherence, poor appetite. Hemoglobin A1c 10.8. ? Gap remains closed. Kidney function normal with BUN 10, creatinine 0.7. Potassium low, initiate electrolyte protocol today. Potassium 3.2. Magnesium 1.9. -Sodium showing improvement at 148, chloride 116. Repeat BMP every 8 hours. Repeat CBC, CMP, magnesium ordered for the morning -White count normal at 7.8 -Correcting sodium between 8 to 10 mEq a day. If sodium improved to 145 or better by afternoon labs, will discontinue D5 water. Discontinue LR now. -On basal bolus regimen at this time. Sliding scale insulin with fingersticks ACHS ? IV Protonix 40 mg for GI prophylaxis. ? IV Phenergan for nausea. Resume p.o. Phenergan once tolerating p.o. intake for gastroparesis. ? Nutrition consulted. -High risk for decompensation. Treatments necessitating close monitoring. Tobacco abuse -Nicotine patch as needed -Tobacco cessation counseling given Full code DVT prophylaxis: Lovenox 30 mg
[2024-06-28] MEDS: ENOXAPARIN 40MG/0.4ML SYRINGE 40 MG SUBCUT (09:30)
[2024-06-28] MEDS: K-PHOS NEUTRAL 250MG TABLET 250 MG PO ×3 (11:28→22:17)
[2024-06-28] MEDS: POLYETHYLENE GLYCOL 3350 17 GM PACKET PO ×2 (11:30→20:34)
[2024-06-28 11:31] LABS: POC Glucose,Bedside 146 (70-110)
[2024-06-28 14:32] LABS: Chloride 113 mmol/L (98-107); Sodium 145 mmol/L (136-145)
[2024-06-28 14:33] LABS: Potassium 3.3 mmoL/L (3.5-5.1)
[2024-06-28 14:36] LABS: Anion Gap 4.3 mEq/L (5-15); Blood Urea Nitrogen 10 mg/dl (9-20); Calcium 8.3 mg/dl (8.4-10.2); Carbon Dioxide 31 mmol/L (22.0-30.0); Creatinine Clearance Estimated 188 mL/min (50-200); Estimated Glomerular Filt Rate 139 ml/min (>60); GFR (African American) 168 ML/MIN (>60); Glucose 178 mg/dl (74-100)
[2024-06-28] MEDS: humaLOG 100 UNITS/ML 10ML VIAL (SSI) SUBCUT ×2 (16:34→20:33)
[2024-06-28 16:42] LABS: POC Glucose,Bedside 201 (70-110)
[2024-06-28 17:39] LABS: POC Glucose,Bedside 202 (70-110)
--- NOTE | 2024-06-28 17:50 | PC.NURSE ---
Pt A&O x4, sitting up in bed eating dinner. No complaints stated. Pt is currently on 1L O2 NC. O2 sats 93%. Pt has sat in the chair and ambulated to the BR without difficulty. Medications administered per sep. Call light within reach. Family at bedside.
--- NOTE | 2024-06-28 18:00 | PC.NURSE ---
Pt is A&O x4. Has slept the majority of this shift with small intervals of waking. Pt's appetite has been poor. He has been encouraged to eat and drink. Pt given glucerna this evening as supplement. Pt also encouraged to get up to the chair. He has c/o nausea and tenderness to abdomen. Bowel sounds active. FSBS 146, 201,202 this shift. Fluids DC per MD Schultz. Call light within reach.
[2024-06-28] MEDS: MAGNESIUM SULFATE IN WATER 2 GM/50 ML PIGGYBACK IV (20:33)
[2024-06-28] MEDS: INSULIN GLARGINE 20 EACH SUBCUT (20:34)
--- NOTE | 2024-06-28 20:59 | PC.NURSE ---
patient unable to tolerate PO potassium, patient swallowed a half of a pill and did not want to try to take the rest, hospitalist notified, will try liquid potassium per MD order
--- NOTE | 2024-06-28 21:38 | EXP.EVENT.NO ---
Patient attempted 40 mill equivalents of potassium, but only able to tolerate 20 mill equivalent pill before experiencing nausea/emesis. Offered patient liquid potassium but he refused. Will therefore write for 30 mill equivalent K rider over 3 hours.
[2024-06-28] MEDS: KCl 10mEq/100ml 100 ML 100 MEQ IV ×2 (22:17→23:23)
[2024-06-28 22:26] LABS: Chloride 113 mmol/L (98-107); Potassium 3.6 mmoL/L (3.5-5.1); Sodium 145 mmol/L (136-145)
[2024-06-28 22:29] LABS: Anion Gap 6.6 mEq/L (5-15); Blood Urea Nitrogen 10 mg/dl (9-20); Carbon Dioxide 29 mmol/L (22.0-30.0); Creatinine Clearance Estimated 219 mL/min (50-200); Estimated Glomerular Filt Rate 166 ml/min (>60); GFR (African American) 200 ML/MIN (>60)
[2024-06-28 22:30] LABS: Calcium 8.6 mg/dl (8.4-10.2); Glucose 136 mg/dl (74-100)
[2024-06-29] VITALS: BP 133/83; PULSE 70; PULSE 80; RESP 14; TEMP 36.9; O2SAT 99
[2024-06-29] MEDS: KCl 10mEq/100ml 100 ML 100 MEQ IV ×4 (00:39→05:46)
--- NOTE | 2024-06-29 02:09 | ECG_ITS ---
APPROVED REPORT Exam: Resting ECG HR:70 bpm ECG Measurements Heart Rate 70 AXES SC 144 P -5 QRSd 81 QRS 81 QT 405 T 82 QTc [address] ELEVATION, PROBABLY EARLY REPOLARIZATION [ST ELEVATION WITH NORMALLY INFLECTED T-WAVE] BORDERLINE ECG UNCONFIRMED REPORT Electronically signed by : LAILA LANDRUM, 06/30/2024 23:26:44
[2024-06-29] MEDS: MAGNESIUM SULFATE IN WATER 2 GM/50 ML PIGGYBACK IV (02:56)
[2024-06-29 04:00] VITALS: BP 138/100; PULSE 60; PULSE 70; RESP 18; TEMP 36.7; O2SAT 100; BMI 16.9
[2024-06-29] MEDS: ENOXAPARIN 100MG/ML SYRINGE 80 MG SUBCUT (04:22)
[2024-06-29] MEDS: ASPIRIN 81MG CHEWABLE TABLET 324 MG PO (04:23)
[2024-06-29] MEDS: humaLOG 100 UNITS/ML 10ML VIAL (SSI) SUBCUT ×2 (05:46→11:50)
[2024-06-29 06:14] LABS: POC Glucose,Bedside 171 (70-110)
[2024-06-29 08:00] VITALS: BP 130/76; PULSE 70; PULSE 90; RESP 17; TEMP 36.7; O2SAT 100
[2024-06-29 08:09] LABS: Albumin Level 3.5 g/dl (3.5-5.0); Chloride 113 mmol/L (98-107); Sodium 144 mmol/L (136-145)
[2024-06-29 08:10] LABS: Potassium 4.5 mmoL/L (3.5-5.1)
[2024-06-29 08:12] LABS: Alanine Aminotransferase 24 U/L (12-78); Albumin/Globulin Ratio 1.8 (1.1-1.8); Alkaline Phosphatase 76 U/L (38-126); Anion Gap 8.5 mEq/L (5-15); Aspartate Amino Transferase 46 U/L (17-59); Bilirubin,Total 0.9 mg/dl (0.2-1.3); Blood Urea Nitrogen 12 mg/dl (9-20); Calcium 8.5 mg/dl (8.4-10.2); Carbon Dioxide 27 mmol/L (22.0-30.0); Creatinine Clearance Estimated 140 mL/min (50-200); Estimated Glomerular Filt Rate 166 ml/min (>60); GFR (African American) 200 ML/MIN (>60); Glucose 144 mg/dl (74-100); Phosphorous 2.2 mg/dl (2.5-4.5); Total Protein,Serum 5.5 g/dl (6.3-8.2)
[2024-06-29 08:13] LABS: Magnesium 2.5 mg/dl (1.6-2.3)
[2024-06-29 08:19] LABS: Hematocrit 35.7 % (42.0-52.0); Hemoglobin 11.7 g/dL (14.1-18.0); Mean Corpuscular Volume 88.6 fl (80-94); Red Blood Count 4.03 M/mm3 (4.60-6.20); White Blood Count 7.3 K/mm3 (4.8-10.8)
[2024-06-29 08:20] LABS: Basophils % 0.3 % (0.1-2.0); Eosinophils % 0.4 % (0.1-12.0); Lymphocytes # 2.1 K/mm3 (0.7-4.5); Lymphocytes % 28.8 % (10-50); Mean Corpuscular HGB Conc 32.8 g/dL (31.8-35.4); Mean Platelet Volume 8.7 fl (7.4-10.4); Monocytes # 0.7 K/mm3 (0.1-1.0); Monocytes % 9.2 % (1.7-9.3); Neutrophils # 4.4 K/mm3 (1.8-7.8); Neutrophils % 60.7 % (37.0-80.0); Platelet Count 175 K/mm3 (142-424); Red Cell Distribution Width 12.3 % (11.5-17.5)
--- NOTE | 2024-06-29 09:46 | ECG_ITS ---
APPROVED REPORT Exam: Resting ECG HR:74 bpm ECG Measurements Heart Rate 74 AXES NV 122 P -5 QRSd 88 QRS 102 QT 425 T 88 QTc 453 Conclusion SINUS RHYTHM RIGHT AXIS DEVIATION [QRS AXIS > 100] ST ELEVATION, PROBABLY EARLY REPOLARIZATION [ST ELEVATION WITH NORMALLY INFLECTED T-WAVE] ABNORMAL ECG UNCONFIRMED REPORT Electronically signed by : Jourdan Fabian MD 06/29/2024 17:00:05
[2024-06-29 12:00] VITALS: BP 132/96; PULSE 75; PULSE 80; RESP 16; TEMP 36.6; O2SAT 96
--- NOTE | 2024-06-29 12:58 | EXP.DC.SUM ---
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 Patient is currently very weak and history was obtained from ED provider, and parents at bedside. They state patient had been living with his sister for the past few days, and father thinks that he has not been taking his insulin or any of his other medications. He and his sister apparently went to [employer] last night to eat dinner and patient soon thereafter began to have nausea/vomiting which became progressively worse today. Father states patient continues to use cannabis. Mother states patient was recently evaluated by endocrinology who was set him up with poli 3 and is working on setting up an insulin pump for patient. Father states patient at baseline does not eat much. Of note, patient was admitted for DKA 2 months ago at this facility. Recommend ED significant for pH 7.2, AGAP 31.5, blood glucose 771, bicarb 9, positive acetone's, ketonuria, WBC 35.2, sodium 152 (corrected 168), creatinine 2.1 (baseline 0.60), hemoglobin A1c 10.8. UDS was positive for THC. UA and CXR were noninfectious. Case discussed with ED provider and decision was made to admit patient for diabetic ketoacidosis. 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 Patient is currently very weak and history was obtained from ED provider, and parents at bedside. They state patient had been living with his sister for the past few days, and father thinks that he has not been taking his insulin or any of his other medications. He and his sister apparently went to [employer] last night to eat dinner and patient soon thereafter began to have nausea/vomiting which became progressively worse today. Father states patient continues to use cannabis. Mother states patient was recently evaluated by endocrinology who was set him up with poli 3 and is working on setting up an insulin pump for patient. Father states patient at baseline does not eat much. Of note, patient was admitted for DKA 2 months ago at this facility. Workup in the ED significant for pH 7.2, AGAP 31.5, blood glucose 771, bicarb 9, positive acetone's, ketonuria, WBC 35.2, sodium 152 (corrected 168), creatinine 2.1 (baseline 0.60), hemoglobin A1c 10.8. UDS was positive for THC. UA and CXR were noninfectious. Case discussed with ED provider and decision was made to admit patient for diabetic ketoacidosis. Seeing some improvement in hypernatremia, continues to require inpatient management. Close monitoring of sodium correction. Anion gap closed. Patient developed abnormalities on telemetry and elevation in troponin. Recommended cardiology evaluation. As he was feeling better and his sodium normalized, elected to leave AMA after significant counseling. Problems addressed as follows: #Diabetic ketoacidosis #Severe hypernatremia #History of gastroparesis #History of THC use ? Presented with worsening nausea/vomiting and weakness after apparently eating at [employer] last night. History of medication nonadherence, poor appetite. Hemoglobin A1c 10.8. Gap closed with aggressive treatment with DKA protocol. Sodium was elevated however in the 150s. Showed gradual improvement with free water replacement. Corrected between 8 to 10 mEq a day. As sodium normalized, patient felt better and started eating. Continue basal bolus regimen. Patient has freestyle poli at home. Requesting new monitors as he needs a refill for his freestyle poli 3. This was sent in at discharge. Elevated troponin, abnormal EKG. -Overnight prior to leaving AMA patient noted to have abnormal waveform on telemetry. EKG obtained showing concern for ST wave abnormalities. Having J-point elevation. Troponin undetectable at 0.8. Recommended cardiology evaluation and further workup. Patient had no desire to stay in the hospital for workup. Stressed the importance of evaluation and risk of discharging home if having heart attack. Patient elected to leave AGAINST MEDICAL ADVICE. Strongly encouraged to come to the cardiology clinic for evaluation if chest pain not improving or go to the ER for urgent evaluation. Patient stated understanding. -Risk factors for coronary artery disease include poorly controlled diabetes, tobacco and THC smoking. Tobacco abuse -Nicotine patch as needed during admission. Exam Data for Last 24 hours Vital signs and Labs for Last 24 Hours: Temp Pulse Resp BP Pulse Ox O2 Del Method O2 Flow Rate 98.1 F 70 17 130/76 100 Room Air 2 06/29/24 08:00 06/29/24 08:00 06/29/24 08:00 06/29/24 08:00 06/29/24 08:00 06/29/24 12:55 06/27/24 03:00 Laboratory Results - last 24 hr 06/28/24 14:00: Sodium 145, Potassium 3.3 L, Chloride 113 H, Carbon Dioxide 31 H, Anion Gap 4.3 L, BUN 10, Creatinine 0.70, Estimated Creat Clear 188, Estimated GFR 139, Est GFR ( Amer) 168, Glucose 178 H D, Calcium 8.3 L 06/28/24 16:31: POC Glucose 201 H 06/28/24 17:25: POC Glucose 202 H 06/28/24 22:10: Sodium 145, Potassium 3.6, Chloride 113 H, Carbon Dioxide 29, Anion Gap 6.6, BUN 10, Creatinine 0.60 L, Estimated Creat Clear 219, Estimated GFR 166, Est GFR ( Amer) 200, Glucose 136 H D, Calcium 8.6 06/29/24 02:58: Troponin I 0.90 H 06/29/24 05:19: POC Glucose 171 H 06/29/24 07:25: WBC 7.3, RBC 4.03 L, Hgb 11.7 L, Hct 35.7 L, MCV 88.6, MCH 29.0, MCHC 32.8, RDW 12.3, Plt Count 175, MPV 8.7, Neut % (Auto) 60.7, Lymph % (Auto) 28.8, [place] % (Auto) 9.2, Eos % (Auto) 0.4, Baso % (Auto) 0.3, Neut # (Auto) 4.4, Lymph # (Auto) 2.1, [place] # (Auto) 0.7, Eos # (Auto) 0.0, Baso # (Auto) 0.0, Sodium 144, Potassium 4.5 D, Chloride 113 H, Carbon Dioxide 27, Anion Gap 8.5, BUN 12, Creatinine 0.60 L, Estimated Creat Clear 140, Estimated GFR 166, Est GFR ( Amer) 200, Glucose 144 H, Calcium 8.5, Phosphorus 2.2 L, Magnesium 2.5 H D, Total Bilirubin 0.9, AST 46 D, ALT 24, Alkaline Phosphatase 76, Total Protein 5.5 L, Albumin 3.5, Globulin 2.0, Albumin/Globulin Ratio 1.8 06/29/24 08:00: Troponin I 0.80 H I & O for Last 24 hours: Intake & Output 06/26/24 06/27/24 06/28/24 06/29/24 23:59 23:59 23:59 23:59 Intake Total 1785.167 / 0145.135 6879.902 / 2778.902 2079 / 2499 795 / 795 Output Total 800 / 1300 560 / 560 620 / 620 500 / 500 Balance 985.167 / 807.761 9053.902 / 2218.902 1459 / 1879 295 / 295 Weight 42.893 kg 81.647 kg 81.647 kg 52.027 kg Microbiology Reports for the Last 24 Hours: Microbiology 06/26/24 14:40 Blood Blood Culture - Preliminary NO GROWTH AFTER 48 HOURS 06/26/24 14:40 Blood Blood Culture - Preliminary NO GROWTH AFTER 48 HOURS 06/26/24 14:50 Urine,Catheterized Urine Culture - Final Constitutional Constitutional: no acute distress, thin, chronically ill appearing and cooperative *Routine HEENT Exam Head: Present normocephalic Eye: Present EOMI and PERRL ENT: Present mucous membranes moist *Routine Neck Exam Neck: Present supple; Absent lymphadenopathy *Routine Respiratory Exam Respiratory: Present CTA bilaterally; Absent rhonchi, wheezes or crackles *Routine Cardiovascular Exam Cardiovascular: Present RRR *Routine Abdominal Exam Abdominal: Present soft and normoactive bowel sounds; Absent tenderness or distended *Routine Rectal Exam Patient deferred: visual exam *Routine Exam Patient deferred: penile exam *Routine Extremities Exam Extremities: Absent cyanosis, clubbing or edema *Routine Skin Exam Skin: Present warm; Absent rash *Routine Neurological Exam Neurological: Present alert, oriented X3 and moving all extremities; Absent altered mental status Routine Psychiatric Exam Psychiatric: Present normal affect; Absent good insight or good judgment Results Data Completed and Pending Labs on day of discharge: Labs from last 24 hours 06/29/24 06/29/24 06/29/24 08:00 07:25 05:19 WBC 7.3 RBC 4.03 L Hgb 11.7 L Hct 35.7 L MCV 88.6 MCH 29.0 MCHC 32.8 RDW 12.3 Plt Count 175 MPV 8.7 Neut % (Auto) 60.7 Lymph % (Auto) 28.8 [place] % (Auto) 9.2 Eos % (Auto) 0.4 Baso % (Auto) 0.3 Neut # (Auto) 4.4 Lymph # (Auto) 2.1 [place] # (Auto) 0.7 Eos # (Auto) 0.0 Baso # (Auto) 0.0 Sodium 144 Potassium 4.5 D Chloride 113 H Carbon Dioxide 27 Anion Gap 8.5 BUN 12 Creatinine 0.60 L Estimated Creat Clear 140 Estimated GFR 166 Est GFR ( Amer) 200 Glucose 144 H POC Glucose 171 H Calcium 8.5 Phosphorus 2.2 L Magnesium 2.5 H D Total Bilirubin 0.9 AST 46 D ALT 24 Alkaline Phosphatase 76 Troponin I 0.80 H Total Protein 5.5 L Albumin 3.5 Globulin 2.0 Albumin/Globulin Ratio 1.8 06/29/24 06/28/24 06/28/24 02:58 22:10 17:25 WBC RBC Hgb Hct MCV MCH MCHC RDW Plt Count MPV Neut % (Auto) Lymph % (Auto) [place] % (Auto) Eos % (Auto) Baso % (Auto) Neut # (Auto) Lymph # (Auto) [place] # (Auto) Eos # (Auto) Baso # (Auto) Sodium 145 Potassium 3.6 Chloride 113 H Carbon Dioxide 29 Anion Gap 6.6 BUN 10 Creatinine 0.60 L Estimated Creat Clear 219 Estimated GFR 166 Est GFR ( Amer) 200 Glucose 136 H D POC Glucose 202 H Calcium 8.6 Phosphorus Magnesium Total Bilirubin AST ALT Alkaline Phosphatase Troponin I 0.90 H Total Protein Albumin Globulin Albumin/Globulin Ratio 06/28/24 06/28/24 16:31 14:00 WBC RBC Hgb Hct MCV MCH MCHC RDW Plt Count MPV Neut % (Auto) Lymph % (Auto) [place] % (Auto) Eos % (Auto) Baso % (Auto) Neut # (Auto) Lymph # (Auto) [place] # (Auto) Eos # (Auto) Baso # (Auto) Sodium 145 Potassium 3.3 L Chloride 113 H Carbon Dioxide 31 H Anion Gap 4.3 L BUN 10 Creatinine 0.70 Estimated Creat Clear 188 Estimated GFR 139 Est GFR ( Amer) 168 Glucose 178 H D POC Glucose 201 H Calcium 8.3 L Phosphorus Magnesium Total Bilirubin AST ALT Alkaline Phosphatase Troponin I Total Protein Albumin Globulin Albumin/Globulin Ratio Preliminary micro results at discharge 06/26/24 14:40 Blood Culture - Preliminary Blood NO GROWTH AFTER 48 HOURS 06/26/24 14:40 Blood Culture - Preliminary Blood NO GROWTH AFTER 48 HOURS DS: Diagnosis Discharge Diagnosis (1) Hypernatremia: Status: Resolved Code(s): E87.0 - Hyperosmolality and hypernatremia (2) DKA (diabetic ketoacidosis): Status: Resolved Code(s): E11.10 - Type 2 diabetes mellitus with ketoacidosis without coma (3) Diabetic gastroparesis: Status: Acute Code(s): E11.43 - Type 2 diabetes mellitus with diabetic autonomic (poly)neuropathy; K31.84 - Gastroparesis (4) Non compliance with medical treatment: Status: Acute Code(s): Z91.199 - Patient's noncompliance with other medical treatment and regimen due to unspecified reason (5) Diabetes mellitus type 1: Status: Acute Code(s): E10.9 - Type 1 diabetes mellitus without complications Qualifiers: Diabetes mellitus complication status: with other specified complication Qualified Code(s): E10.69 - Type 1 diabetes mellitus with other specified complication (6) NSTEMI (non-ST elevated myocardial infarction): Status: Acute Code(s): I21.4 - Non-ST elevation (NSTEMI) myocardial infarction Meds Home Medications and Allergies Home Medications ?Medication ?Instructions ?Recorded ?Confirmed ?Type cholecalciferol (vitamin D3) 1,250 1,250 mcg PO WEEKLY 04/28/24 07/02/24 History mcg (50,000 unit) capsule cyanocobalamin (vitamin B-12) 1,000 mcg PO DAILY 04/28/24 07/02/24 History 1,000 mcg tablet insulin lispro 200 unit/mL (3 mL) 0 unit SQ DIRECTED 04/29/24 07/02/24 History subcutaneous pen (Humalog KwikPen U-200 Insulin) insulin glargine U-300 conc 300 20 unit (0.0667 mL) SQ HS #6 mL 05/01/24 07/02/24 Rx unit/mL (3 mL) subcutaneous pen (Toujeo Max U-300 SoloStar) prochlorperazine maleate 5 mg 5 mg PO QID PRN nausea and 05/01/24 07/02/24 Rx tablet (Compazine) vomiting #14 tabs pantoprazole 40 mg tablet,delayed 40 mg PO AM 06/27/24 07/02/24 History release aspirin 81 mg tablet,delayed 81 mg PO DAILY #30 tabs 06/29/24 07/02/24 Rx release blood-glucose sensor (FreeStyle #1 ea 06/29/24 07/02/24 Rx Poli 3 Sensor device) flash glucose sensor (FreeStyle #1 ea 07/02/24 07/02/24 History Poli 2 Sensor kit) pen needle, diabetic 32 gauge x #1,200 ea 07/02/24 07/02/24 History (BD Sydnie 2nd Gen Pen Needle) New Prescriptions to Start Prescriptions: aspirin Harshil Schultz blood-glucose sensor [FreeStyle Poli 3 Sensor] Harshil Schultz Allergies Allergy/AdvReac Type Severity Reaction Status Date / Time No Known Allergies Allergy Verified 07/02/24 13:19 Discharge Plan Disposition Patient Disposition: Left Against Medical Advice Condition: Undetermined Patient Discharge Instructions Print Language: Mohawk Providers Admit Provider: Harshil Schultz Attending Provider: Harshil Schultz
--- NOTE | 2024-06-29 13:07 | PC.NURSE ---
Pt requesting to leave AMA. Dr Schultz spoke with patient and mother and thoroughly educated them on the risks of leaving but patient still wants to leave AMA.
== END 2024-06-29 13:40 | disposition left against medical advice (07) | DRG 638 ==
LOC: ER 14:28 → 2ND 16:14
PROVIDERS: Internal Medicine; Student in an Organized Health Care Education/Training Program; Admitting Provider Internal Medicine Adolescent Medicine; Emergency Provider Emergency Medicine; PCP Family Medicine; Visit Provider Internal Medicine Adolescent Medicine
DX: E10.10 Type 1 diabetes mellitus with ketoacidosis without coma (principal); E87.0 Hyperosmolality and hypernatremia; E10.43 Type 1 diabetes mellitus with diabetic autonomic (poly)neuropathy; K31.84 Gastroparesis; Z79.4 Long term (current) use of insulin; Z91.199 Patient's noncompliance with other medical treatment and regimen due to unspecified reason
CPT/HCPCS: 36415; 71045; 80048; 80053; 80307; 80320; 80329; 81001; 82009; 82550; 82803; 82962; 83036; 83605; 83690; 83735; 83930; 84100; 84439; 84443; 84484; 85007; 85025; 86803; 87040; 87086; 87389; 93005; 99291; J0780; J1650; J2550; J3475; J3480; J7030; J7060; J7120

== ENCOUNTER 2024-07-10 12:43 | Outpatient (CLI) | payer OTHER, SELFPAY ==
[2024-07-10 19:37] LABS: Creatinine,Urine Random 23 mg/dL (Not Estab.); Microalbumin < 6.000 mg/L (0-16.7)
== END 2024-07-10 23:59 | disposition home or self-care (01) ==
LOC: LAB.DROPOF 07-14 12:44
PROVIDERS: PCP Nurse Practitioner; Visit Provider Nurse Practitioner
DX: E10.69 Type 1 diabetes mellitus with other specified complication (principal); Z79.4 Long term (current) use of insulin
CPT/HCPCS: 82043; 82570

== ENCOUNTER 2024-07-11 14:30 | Outpatient (CLI) | payer OTHER, SELFPAY ==
--- NOTE | 2024-07-11 14:32 | CA_ITS ---
APPROVED REPORT EXAM: Comprehensive 2D, Doppler, and color-flow Echocardiogram Corporate Law Assistant: ISAÍAS Cain, RVS Ht: 5 ft 7 in Wt: 108lbs BSA: 1.56 BP: 110/78 mmHg Indications: Dyspnea, DM, CP, FISCHER, ABN EKG 2D Dimensions Left Atrium 2.21 cm M: 3.0 - 4.0 M-Mode Dimensions RVDd 1.51 cm (0.9-2.6) LA Diam 1.40 cm (1.9-4.0) LVDd 3.93 cm (3.5-5.7) LVDs 2.41 cm (3.5-5.7) IVSd 0.82 cm (0.6-1.1) PWd 0.72 cm (0.6-1.1) EF (Teich) 69.60% EPSs 0.59 cm FS 38.70% EDV (Teich) 67.10 mL TAPSE 2.02 (<1.7) ESV (Teich) 20.40 mL LV Diastology E Decel Time 230 (160-240 msec) E/A Ratio 1.47 MED A' 8.80 cm/s LAT A' 10.00 cm/s Aortic Valve SOL Index 1.85 cm2/m2 AoV Peak Reji. 89.0 (50-130 cm/s) AO Peak GR. 3.20 mmHg AO Mean GR. 1.60 (<5 mmHg) AO VTI 15.0 (18-25 cm) SOL (VTI) 2.94 (2.5-4.5 cm2) Mitral Valve MV A Velocity 45.0 (40-130 cm/s) E/A Ratio 1.47 Left Ventricle The left ventricle is normal size. The left ventricular systolic function is normal. The left ventricular ejection fraction is within the normal range. There is normal left ventricular wall thickness. There is normal LV segmental wall motion. The left ventricular diastolic function is normal. LVEF is 50-55%. Right Ventricle The right ventricle is normal size. The right ventricular systolic function is normal. Atria The left atrium size is normal. The right atrium size is normal. There is no color Doppler evidence of interatrial shunt. Aortic Valve The aortic valve opens well. There is no aortic valvular stenosis. No aortic regurgitation is present. Mitral Valve The mitral valve is normal in structure. No evidence of mitral valve stenosis. Trace mitral regurgitation. Tricuspid Valve Tricuspid valve is grossly normal in structure and function. Trace tricuspid regurgitation. There is insufficient TR jet to estimate RVSP. Pulmonic Valve The pulmonary valve is normal in structure. Trace pulmonic regurgitation. Great Vessels The aortic root is normal in size. IVC is normal in size and collapses >50% with inspiration. Pericardium There is no pericardial effusion. Conclusion Normal biventricular systolic function. No significant valvular stenosis or regurgitation. Electronically signed by : Shana Delgado MD 07/23/2024 02:06:59
== END 2024-07-11 23:59 | disposition home or self-care (01) ==
LOC: RT 14:30
PROVIDERS: PCP Nurse Practitioner; Visit Provider Physician Assistant
DX: R06.09 Other forms of dyspnea (principal); R07.89 Other chest pain; R94.31 Abnormal electrocardiogram [ECG] [EKG]; R79.89 Other specified abnormal findings of blood chemistry
CPT/HCPCS: 93306

== ENCOUNTER 2024-07-29 11:30 | Outpatient (CLI) | payer OTHER, SELFPAY ==
--- NOTE | 2024-07-29 | CA_ITS ---
APPROVED REPORT Exam: Exercise Treadmill Technologist: Ciera Sales Ht: 5 ft 7 in Wt: 120 lbs BSA: 1.63 m2 HR: 87 bpm BP: 109/68 mmHg Stress Test Details Test: Exercise stress testing was performed using a Vidal protocol. HR Resting HR: 87 bpm Max Heart Rate (APMHR): 196 bpm Max HR Achieved: 182 bpm Target HR (85% APMHR): 167 bpm % of APMHR: 93 Recovery HR: 112 bpm HR response to stress: Normal HR response to stress BP Resting BP: 109.0/68.0 mmHg Max BP: 160.0/76.0 mmHg Recovery BP: 126.0/73.0 mmHg BP response to stress: Normal blood pressure response to stress. ECG Resting ECG: Sinus rhythm Stress ECG: < 0.[address] depression Clinical Exercise duration: 9:00 min Exercise capacity: 10.3 METs Stress ECG Conclusion Symptoms: Fatigue, Dyspnea Arrhythmias/Ectopy: None ST-T Changes: < 0.[address] depression Conclusion: Average exercise capacity. No evidence of ischemic ECG changes at peak stress. Myoview images are reported separately. Electronically signed by : Shana Delgado MD 07/30/2024 12:31:37
--- NOTE | 2024-07-29 11:34 | NM_ITS ---
APPROVED REPORT Exam: Nuclear Stress Test Indication: Chest pain, DM, Tobacco use Patient Location: Outpatient Stress Tech: Ciera Sales [place] Tech:Sindy Dorantes, ARRT, RT (R)(N) Ht: 5 ft 7 in Wt: 120 lbs HR: 87 bpm BP: 109/68 mmHg BSA: 1.63 m2 TID: 0.88 BMI: 18.7 History: Chest pain, DM, Tobacco use Procedure: Patient exercised on Vidal protocol 9:00 minutes and sec, resting heart rate 87 bpm, resting blood pressure 109/68 mmHg, with exercise maximum heart rate achived was 182 bpm which is 92 % of the maximum predicted heart rate and blood pressure was 160/76 mmHg. Test was stopped due to SOB. Patient denied any complaint of chest pain. Patient has exercise capacity, achieved 10.3 METs of workload on treadmill, the blood pressure response to exercise was . Cardiac Stress and Resting SPECT Images: Cardiac Stress and Resting SPECT images were obtained using technetium 99m Myoview 32.7 mCi stress and 10.53 mCi at rest. Resting and stress imaging in supine and prone position demonstrate no evidence of fixed or reversible perfusion defects. Gated imaging demonstrates normal global and regional LV systolic function. LVEF is calculated at 57%. Conclusion: No evidence of fixed or reversible perfusion defects. Gated imaging demonstrates normal global and regional LV systolic function. LVEF is calculated at 57%. Electronically signed by : Shana Delgado MD 07/30/2024 12:20:54
[2024-07-29] MEDS: ISOTOPE MYOVIEW (PER STUDY) 1 DOSE IV (13:02)
[2024-07-29] MEDS: SODIUM CHLORIDE 0.9% 10ML SYR (RAD ONLY) 10 ML IV ×2 (13:02)
[2024-07-29 14:38] LABS: Basophils # 0.1 K/mm3 (0-0.2); Basophils % 0.7 % (0.1-2.0); Eosinophils # 0.1 K/mm3 (0.0-0.4); Eosinophils % 0.6 % (0.1-12.0); Hematocrit 37.1 % (42.0-52.0); Hemoglobin 12.5 g/dL (14.1-18.0); Lymphocytes # 2.1 K/mm3 (0.7-4.5); Lymphocytes % 26.1 % (10-50); Mean Corpuscular HGB Conc 33.7 g/dL (31.8-35.4); Mean Corpuscular Hemoglobin 29.4 pg (27.0-31.2); Mean Corpuscular Volume 87.3 fl (80-94); Mean Platelet Volume 8.8 fl (7.4-10.4); Monocytes # 0.5 K/mm3 (0.1-1.0); Monocytes % 5.6 % (1.7-9.3); Neutrophils # 5.4 K/mm3 (1.8-7.8); Neutrophils % 65.8 % (37.0-80.0); Platelet Count 281 K/mm3 (142-424); Red Blood Count 4.25 M/mm3 (4.60-6.20); Red Cell Distribution Width 12.4 % (11.5-17.5); White Blood Count 8.2 K/mm3 (4.8-10.8)
[2024-07-29 15:03] LABS: Albumin Level 4.9 g/dl (3.5-5.0); Chloride 96 mmol/L (98-107); Sodium 131 mmol/L (136-145)
[2024-07-29 15:04] LABS: Potassium 4.9 mmoL/L (3.5-5.1)
[2024-07-29 15:06] LABS: Alanine Aminotransferase 22 U/L (12-78); Alkaline Phosphatase 80 U/L (38-126); Anion Gap 13.9 mEq/L (5-15); Aspartate Amino Transferase 25 U/L (17-59); Bilirubin,Direct 0.3 mg/dl (0.0-0.4); Bilirubin,Indirect 0.4 mg/dL (0.0-0.9); Bilirubin,Total 0.7 mg/dl (0.2-1.3); Bilirubin,Unconjugated 0.4 mg/dL (0.0-1.1); Blood Urea Nitrogen 14 mg/dl (9-20); Calcium 9.8 mg/dl (8.4-10.2); Carbon Dioxide 26 mmol/L (22.0-30.0); Cholesterol 202 mg/dl (140-200); Estimated Glomerular Filt Rate 166 ml/min (>60); GFR (African American) 200 ML/MIN (>60); Total Protein,Serum 6.7 g/dl (6.3-8.2); Triglycerides 128 mg/dl (30-150); VLDL Cholesterol 26 mg/dL (0-40)
[2024-07-29 15:07] LABS: Hemoglobin A1C 9.4 % (4.0-6.0)
[2024-07-29 15:18] LABS: Direct LDL Cholesterol 83.47 mg/dL (100-129)
[2024-07-29 15:21] LABS: Glucose 428 mg/dl (74-100)
[2024-07-29 15:27] LABS: Free T4 (Free Thyroxine) 1.38 ng/dl (0.78-2.19)
[2024-07-29 15:36] LABS: Thyroid Stimulating Hormone 0.18 uIU/mL (0.465-4.68)
[2024-07-29 16:09] LABS: Chol/HDL Ratio 2.4 (1-3.5); HDL Cholesterol 83 mg/dl (40-60)
== END 2024-07-29 23:59 | disposition home or self-care (01) ==
LOC: RAD 11:30
PROVIDERS: Nurse Practitioner; PCP Nurse Practitioner; Visit Provider Physician Assistant
DX: R06.09 Other forms of dyspnea (principal); R07.89 Other chest pain; R94.31 Abnormal electrocardiogram [ECG] [EKG]; E10.69 Type 1 diabetes mellitus with other specified complication
CPT/HCPCS: 36415; 78452; 80048; 80061; 80076; 83036; 84439; 84443; 85025; 93017; 93018; A9502

== ENCOUNTER 2024-08-09 13:08 | Inpatient (IN) | payer OTHER, SELFPAY ==
[2024-08-09] VITALS (18 sets, daily range): BP systolic 92–134; BP diastolic 50–83; PULSE 52–88; RESP 9–20; TEMP 36.6–37.1; O2SAT 92–99; BMI 18.6; BMI 17.7
--- NOTE | 2024-08-09 13:15 | ECG_ITS ---
APPROVED REPORT Exam: Resting ECG HR:61 bpm ECG Measurements Heart Rate 61 AXES CO 136 P -23 QRSd 90 QRS 88 QT 440 T 83 QTc 443 Conclusion SINUS RHYTHM MODERATE ST DEPRESSION [0.05+ mV ST DEPRESSION] ABNORMAL ECG Electronically signed by : MARLA BAEZ, 08/09/2024 15:42:09
--- NOTE | 2024-08-09 13:17 | PC.NURSE ---
fingerstick glucose 344 at 1315. Nurse aware
--- NOTE | 2024-08-09 13:22 | PC.NURSE ---
Respiratory therapy notified of need for vbg.
--- NOTE | 2024-08-09 13:23 | ED_ITS ---
Discharge Plan Disposition Patient Disposition: Admitted Prescriptions Prescriptions: No Action (DME) pen needle, diabetic [BD Sydnie 2nd Gen Pen Needle] 32 gauge x 5/32 needle See Rx Instructions .ROUTE .MEDSUPPLY Qty: 1200 Patient Comments: USE DIRECTED Rx Instructions: As directed (DME) FreeStyle Poli 2 Sensor Kit See Rx Instructions .ROUTE .MEDSUPPLY Qty: 1 Patient Comments: USE 1 KIT EVERY 14 DAYS Rx Instructions: As directed Humalog KwikPen Insulin 200 unit/mL (3 mL) insulin pen See Rx Instructions SQ DIRECTED Qty: 6 5RF Rx Instructions: Per sliding scale: 10-15 units TID AC insulin glargine U-300 conc [Toujeo Max U-300 SoloStar] 300 unit/mL (3 mL) insulin pen 20 unit SQ HS Qty: 6 0RF pantoprazole 40 mg tablet,delayed release (DR/EC) 40 mg PO AM Patient Comments: TAKE 1 TABLET BY MOUTH ONCE DAILY ON AN EMPTY STOMACH (DME) FreeStyle Poli 3 Sensor Device See Rx Instructions .Route Qty: 1 1RF Rx Instructions: As directed Referrals Follow up/Referrals: Gretchen Angelo APRN [Primary Care Provider] - See instructions Clinical Impressions Clinical Impression: Vomiting, Abdominal pain Diabetic acidosis Qualifiers: Diabetes mellitus type: type 1 Diabetes mellitus complication detail: without coma Qualified Code(s): E10.10 - Type 1 diabetes mellitus with ketoacidosis without coma Instructions Patient Instructions: DI for Hyperglycemia -- Adult Print Language Print Language: Sudanese Discharge ED Provider: Buck Baron General Adult HPI General Chief complaint: Hyper/Hypoglycemia Stated complaint: vomiting, high blood sugar, dizziness Time Seen by Provider: 08/09/24 13:10 Mode of Arrival: Ambulatory Source of Information: Patient Limitations: No Limitations Description of Symptoms (Recalled from ER Triage Doc. by RN): Reports increased glucose, nausea, vomiting and diarrhea since this morning. Denies any pain just states that he does not feel well. Reports taking 10 units of Humalog this morning. History of Present Illness HPI narrative: Please note that above description of symptoms, in this electronic medical record under categorization of recalled from ER triage doctor by RN are reflective of an initial nursing assessment, however, is not reflective of my full history and physical exam that was personally taken and clarified. Consequentially, this preceding description of symptoms, which may include the patient's categorized chief complaint in the EMR, do not reflect my personal clinical impression, and the ultimate description of history of present illness and patient stated complaints should be deferred to this section of the note. Unless stated otherwise or congruent with this section of the note, additional signs, symptoms, or incongruence should be interpreted as inaccurate with my clinical impression. Related Data Home Medications ?Medication ?Instructions ?Recorded ?Confirmed pantoprazole 40 mg tablet,delayed 40 mg PO AM 06/27/24 07/25/24 release flash glucose sensor (FreeStyle #1 ea 07/02/24 07/25/24 Poli 2 Sensor kit) pen needle, diabetic 32 gauge x #1,200 ea 07/02/24 07/25/24 (BD Sydnie 2nd Gen Pen Needle) Previous Rx's ?Medication ?Instructions ?Recorded insulin glargine U-300 conc 300 20 unit (0.0667 mL) SQ HS #6 mL 05/01/24 unit/mL (3 mL) subcutaneous pen (Toujeo Max U-300 SoloStar) blood-glucose sensor (FreeStyle #1 ea 06/29/24 Poli 3 Sensor device) insulin lispro 200 unit/mL (3 mL) See Rx Instructions SQ DIRECTED 07/10/24 subcutaneous pen (Humalog KwikPen #6 mL U-200 Insulin) Allergies Allergy/AdvReac Type Severity Reaction Status Date / Time No Known Allergies Allergy Verified 07/25/24 09:52 [facility] Disclaimer: The information contained in this section may have been updated after the patient was seen, as this information can be updated by other users. Medical History Abdominal pain Abdominal pain Vitamin D deficiency Vitamin B12 deficiency Diabetes mellitus type 1 Hyperthyroidism Family History Other Cancer Diabetes Hypertension Social History Smoking Status: Unknown if ever smoked alcohol intake: never current occupational status: unemployed Travel in the last 8 weeks: None Have you lived/traveled outside [place] in past 30 days?: No Contact w/someone who lives/traveled outside [place] past 30 days?: No Exposure to someone with infectious disease in past 14 days?: No Do you have a fever (greater than 100.4 F or 38 C)?: No Have you tested positive for COVID-19: No Exposed to someone with COVID-19 in past 14 days?: No Do you have a sore throat?: No Do you have a cough?: No Do you have any weakness?: No Do you have any diarrhea?: No Are you experiencing any unusual bleeding?: No Do you have any muscle aches/pain?: No Do you have any abdominal pain?: No Are you experiencing loss of taste or smell?: No Other Medical History Have you received the Flu Vaccine for this season: No Have you received the Pneumonia Vaccine: No ROS Obtained: Yes All systems reviewed & no additional complaints except as documented Physical Exam General General appearance: alert, cachectic and other (Acutely on chronically ill) Head Head exam: atraumatic and normocephalic Eye Eye exam: Present normal appearance, PERRL and EOMI Neck Neck exam: Present normal inspection, full ROM and trachea midline Respiratory Respiratory exam: Present normal lung sounds bilaterally; Absent respiratory distress, wheezes, stridor, accessory muscle use or prolonged expiratory phase Cardiovascular Cardiovascular exam: Present normal rhythm, tachycardia and other (Pulses equal symmetric in upper and lower extremities) Abdominal Exam Abdominal exam: Present soft; Absent distention, tenderness, guarding, rebound, rigidity or pulsatile mass Extremities Exam Extremities exam: Absent edema Neurological Exam Neurological exam: Present alert, oriented X3 and CN II-XII intact; Absent motor sensory deficit Skin Skin exam: Present warm and dry; Absent diaphoresis or erythema Medical Decision Making Medical Records Medical records reviewed: Yes I reviewed the patient's medical records. Screening: Per USPSTF and CDC recommendations, given the prevalence of disease in our region, it is our hospital?s policy to screen for HIV and viral Hepatitis for all patients aged 18 and over and those with ongoing risk factors. Lui Inquiry Pt receiving controlled substance: No Lui was queried for this patient: No Vital Signs: 08/09/24 13:10 08/09/24 13:15 08/09/24 13:30 Temperature 97.8 F Temperature Source Oral Pulse Rate 61 57 L Pulse Rate [Radial] 63 Respiratory Rate 18 12 Blood Pressure 130/83 134/79 Blood Pressure [Right Arm] 130/83 Blood Pressure Mean [Right Arm] 98 Blood Pressure Source [Right Arm] Automatic Cuff Blood Pressure Position [Right Arm] Sitting 02 Sat by Pulse Oximetry 99 98 99 Oxygen Delivery Method Room Air Room Air Lab Data Lab Results 08/09/24 13:17: VBG pH 7.36, VBG pCO2 43.1, VBG pO2 41.6 H, VBG HCO3 23.7, VBG Total CO2 25.0, VBG O2 Saturation 74.7 H, VBG Base Excess -1.8, VBG Lactic Acid 3.8 H 08/09/24 13:20: WBC 11.5 H, RBC 4.63, Hgb 13.7 L, Hct 41.2 L, MCV 89.0, MCH 29.6, MCHC 33.3, RDW 12.7, Plt Count 319, MPV 8.7, Neut % (Auto) 89.2 H, Lymph % (Auto) 6.4 L, Ashley % (Auto) 3.0, Eos % (Auto) 0.0 L, Baso % (Auto) 0.4, Neut # (Auto) 10.2 H, Lymph # (Auto) 0.7, Ashley # (Auto) 0.3, Eos # (Auto) 0.0, Baso # (Auto) 0.1, APTT 20.4 L, Sodium 138, Potassium 4.5, Chloride 96 L, Carbon Dioxide 24, Anion Gap 22.5 H, BUN 17, Creatinine 0.60 L, Estimated Creat Clear 140, Estimated GFR 166, Est GFR ( Amer) 200, Glucose 388 H, Calcium 9.7, Total Bilirubin 0.8, AST 42, ALT 30, Alkaline Phosphatase 92, Troponin I < 0.01, Total Protein 7.6, Albumin 5.3 H, Globulin 2.3, Albumin/Globulin Ratio 2.3 H, Lipase 48 08/09/24 13:34: SARS-CoV-2 (PCR) Not detected, Influenza A Untype (PCR) Not detected, Influenza Type B (PCR) Not detected 08/09/24 13:45: Urine Color Yellow, Urine Appearance Clear, Urine pH 7.5, Ur Specific Faxon 1.015, Urine Protein Negative, Urine Glucose (UA) 3+, Urine Ketones 2+, Urine Blood Negative, Urine Nitrate Negative, Urine Bilirubin Negative, Urine Urobilinogen 0.2, Ur Leukocyte Esterase Negative, Urine RBC None, Urine WBC Occasional, Ur Squamous Epith Cells Occasional, Urine Bacteria Trace 08/09/24 13:20 08/09/24 13:20 Orders (Tests/Meds): ED MEDICATIONS Generic Name Dose Route Start Last Admin Trade Name Freq PRN Reason Stop Dose Admin Lactated Ringer's 1,910 mls @ 955 mls/hr 08/09/24 13:21 08/09/24 13:24 Lactated Ringer's 1000 Ml Bag 30 ml/kg infuse over 2 hr (1910 ml) 08/09/24 15:20 955 mls/hr IV Administration .Q2H ONE Insulin Human Regular 100 unit 101 mls @ 5.268 mls/hr 08/09/24 13:54 08/09/24 14:09 / Sodium Chloride IV 09/08/24 13:53 0.1 units/kg/hr .[id number] MARCELO 5.27 mls/hr Administration Protocol 0.1 UNITS/KG/HR Insulin Glargine 20 unit 08/09/24 21:00 Insulin Glargine 100 Units/Ml 3ml Flexpen SUBCUT 09/08/24 20:59 BID MARCELO Discontinued Medications Generic Name Dose Route Start Last Admin Trade Name Abimael PRN Reason Stop Dose Admin Ondansetron HCl 4 mg 08/09/24 13:27 08/09/24 13:28 Ondansetron 4mg/2ml Vial IV 08/09/24 13:28 4 mg ONCE ONE Administration ORDERS Category Date Time Status Acetone, Serum (Rapid) Stat Lab 08/09/24 13:20 Results Complete Blood Count Auto Diff Stat Lab 08/09/24 13:20 Completed Comprehensive Metabolic Panel Stat Lab 08/09/24 13:20 Results Hemoglobin A1C Stat Lab 08/09/24 13:20 Received Lipase Stat Lab 08/09/24 13:20 Results PTT [Activated Partial Thrombo Time] Stat Lab 08/09/24 13:20 Completed Rapid PCR Covid and Flu A/B Stat Lab 08/09/24 13:34 Completed Troponin I Q3H Lab 08/09/24 16:30 Ordered Troponin I Q3H Lab 08/09/24 19:30 Ordered Troponin I Stat Lab 08/09/24 13:20 Results UDS [Drug Screen,Urine] Stat Lab 08/09/24 14:47 Ordered Urinalysis and Microscopic Stat Lab 08/09/24 13:45 Completed VBG [Venous Blood Gas] Stat RT 08/09/24 13:17 Completed Medical Decision Narrative: 23-year-old male with history of type 1 diabetes intermittent medication compliance presenting with abdominal pain, vomiting, high glucose reading. States that he started feeling poorly this morning, 08/09. Took his [id number] blood glucose fingerstick and it read too high to determine. Took 10 units of insulin Humalog and then waited a few hours. Took it around 6 AM, around 1 PM, came in for further evaluation. No fevers or chills, chest pain, shortness of breath, syncope, diarrhea, constipation, flank pain, urinary symptoms, etc. History was obtained via conversation with patient. On arrival, patient hemodynamically stable, alert, oriented x4, appropriate, GCS 15, moving all extremities spontaneously, pupils equal and reactive to light. Full physical exam performed and significant for chronically ill-appearing male who is in mild distress secondary to retching and nausea, acutely ill-appearing. Disheveled. Cachectic. Abdomen soft, does not appear to elicit further tenderness on my exam. Differential includes metabolic derangement, endocrinologic abnormality, diabetic ketoacidosis, HHNK, appendicitis, cholecystitis, gastritis, enteritis, pancreatitis, ACS, DE, among others. Patient placed on continuous cardiac monitoring and continuous pulse ox with initial blood pressure 130/83, heart rate 60, saturation 99% on room air. Independent interpretation of EKG shows sinus rhythm 61 bpm with no acute ischemic change. WI interval 136, QRS 90, QTc 443. T waves are tall, but not exactly peaked and are symmetric. Patient was given sepsis fluid bolus for symptomatic management and correction of underlying abnormalities. Workup independently interpreted and significant for mild leukocytosis 11.5 with neutrophilia. Patient's gas without acidosis pH 7.36/CO2 normal at 43/bicarb 23.7. Lactate 3.8. Patient's chemistry with normal sodium potassium, anion gap of 23 with glucose elevated nearly 400. Patient's troponin negative, lipase negative. Urinalysis with ketones and glucose. No evidence of infection. On reevaluation, patient no longer retching, but still looks as if he is not feeling well. States he is not feeling much better overall. Patient placed on insulin drip at 0.1 units/kg/h. Hospital medicine contacted and case was discussed at length, patient to be admitted for hyperglycemia and DKA. Because patient high risk for clinical decompensation, deemed appropriate for inpatient admission. Results were relayed to patient who voiced understanding and patient was agreeable to inpatient admission and management. Patient was admitted to the hospital for further definitive management. Office Technologist disclaimer Much of this encounter note is an electronic cardiology clinical nurse specialist spoken language to printed text. Electronic cardiology clinical nurse specialist of the spoken language may permit errors. Although I have reviewed the note, some errors may still exist. Critical Care Critical Care Time Critical Care Time: Yes (metabolic) Attestation: On 08/09/24, the high probability of a clinically significant, sudden or life threatening deterioration of the following system(s) required my full and direct attention, intervention and personal management. The time I documented below is in addition to time spent performing reported procedures but includes the following listed in this critical care notation. Total Time Total Critical Care Time: 40
[2024-08-09] MEDS: LACTATED RINGERS 1000ML 1,910 ML 955 ML IV (13:24)
[2024-08-09] MEDS: ONDANSETRON 4MG/2ML VIAL 4 MG IV (13:28)
[2024-08-09 13:38] LABS: Coronavirus 19, PCR Not Detected (NotDetected); Influenza A, PCR Not Detected (NotDetected); Influenza B, PCR Not Detected (NotDetected)
[2024-08-09 13:39] LABS: Basophils # 0.1 K/mm3 (0-0.2); Basophils % 0.4 % (0.1-2.0); Hematocrit 41.2 % (42.0-52.0); Hemoglobin 13.7 g/dL (14.1-18.0); Lymphocytes # 0.7 K/mm3 (0.7-4.5); Lymphocytes % 6.4 % (10-50); Mean Corpuscular HGB Conc 33.3 g/dL (31.8-35.4); Mean Corpuscular Hemoglobin 29.6 pg (27.0-31.2); Mean Platelet Volume 8.7 fl (7.4-10.4); Monocytes # 0.3 K/mm3 (0.1-1.0); Neutrophils # 10.2 K/mm3 (1.8-7.8); Neutrophils % 89.2 % (37.0-80.0); Platelet Count 319 K/mm3 (142-424); Red Blood Count 4.63 M/mm3 (4.60-6.20); Red Cell Distribution Width 12.7 % (11.5-17.5); White Blood Count 11.5 K/mm3 (4.8-10.8)
[2024-08-09 13:39] LABS: Lactate Venous 3.8 mmol/L (0.4-2.0); VBG Base Excess -1.8 mmol/L (-2.4-2.3); VBG HCO3 23.7 mmol/L (23-30); VBG Oxygen Saturation 74.7 % (50-70); VBG PCO2 43.1 mmol/L (35-51); VBG PH 7.36 mmol/L (7.31-7.41); VBG PO2 41.6 mmol/L (28-40)
[2024-08-09 13:49] LABS: Albumin Level 5.3 g/dl (3.5-5.0); Chloride 96 mmol/L (98-107); Potassium 4.5 mmoL/L (3.5-5.1); Sodium 138 mmol/L (136-145)
[2024-08-09 13:50] LABS: Microscopic, Urine URINE MICROSCOPIC (MICROSCOPIC)
[2024-08-09 13:51] LABS: Alanine Aminotransferase 30 U/L (12-78); Aspartate Amino Transferase 42 U/L (17-59); Blood Urea Nitrogen 17 mg/dl (9-20); Carbon Dioxide 24 mmol/L (22.0-30.0); Creatinine Clearance Estimated 140 mL/min (50-200); Estimated Glomerular Filt Rate 166 ml/min (>60); GFR (African American) 200 ML/MIN (>60)
[2024-08-09 13:52] LABS: Albumin/Globulin Ratio 2.3 (1.1-1.8); Alkaline Phosphatase 92 U/L (38-126); Anion Gap 22.5 mEq/L (5-15); Bilirubin,Total 0.8 mg/dl (0.2-1.3); Calcium 9.7 mg/dl (8.4-10.2); Globulin 2.3 g/dL (1.3-3.2); Glucose 388 mg/dl (74-100); Lipase 48 U/L (23-300); Total Protein,Serum 7.6 g/dl (6.3-8.2)
[2024-08-09 13:52] LABS: Appearance,Urine CLEAR (Clear); Bilirubin,Urine Negative (Negative); Blood, Urine Negative (Negative); Color,Urine YELLOW (Yellow); Glucose,Urine (UA) 3+ (Negative); Ketones,Urine 2+ (Negative); Leukocyte Esterase,Urine Negative (Negative); Nitrate,Urine Negative (Negative); PH,Urine 7.5 (5.0-8.5); Protein,Urine Negative (Negative); Specific Gravity, Urine 1.015 (1.005-1.030); Urobilinogen,Urine 0.2 EU/dl (0.2)
[2024-08-09 13:57] LABS: Activated Partial Thrombo Time 20.4 seconds (22.5-28.5)
[2024-08-09 14:06] LABS: Troponin I < 0.01 ng/ml (0.00-0.034)
[2024-08-09 14:06] LABS: Bacteria,Urine Trace /lpf; Squamous Epithelial Cell,Urine Occasional #/hpf (0-5); WBC,Urine Occasional #/hpf (0-3)
[2024-08-09] MEDS: INSULIN REGULAR, HUMAN 100 UNIT in 0.9 % SODIUM CHLORIDE 100 ML 5.27 UNIT IV (14:09)
--- NOTE | 2024-08-09 14:28 | PC.NURSE ---
fingerstick glucose 386 at 1427
--- NOTE | 2024-08-09 14:51 | PC.NURSE ---
TRAIN CLERK NOTIFIED OF ADMISSION
--- NOTE | 2024-08-09 14:53 | P.HP_ITS ---
History of Present Illness *Admission Date: 08/09/24 *Reason for visit:: DKA *History of present illness: Barry Joe is a 23-year-old male with history of type 1 diabetes, recurrent DKA, gastroparesis, cyclic vomiting. He presented to the ER because of onset of nausea vomiting diarrhea this morning. Sister is with him today. Denies any fever or known sick contacts. Reports taking his insulin at home per his normal regimen. Took 10 units of Humalog this morning when his meter read hi . On presentation to the ER, patient is quite fatigued and ill-appearing. Glucose elevated above 400, anion gap in the 20s. Ketones in his urine. Medicine consulted for admission and management of his DKA. Recent admission last month for similar presentation. Stable on room air. Patient also continues to use cannabis which complicates his vomiting syndrome. Supposed to recently established with endocrine, reported history of being set up with poli and insulin pump. On evaluation, patient cachectic on exam. Stable on room air. Afebrile. Denies any chest pain or shortness of breath. Remarkable labs include white count of 11, anion gap of 22, creatinine 0.6, A1c 9.2, urine positive for THC. Hypernatremia last visit, sodium 138 today. Troponin negative. [facility] Disclaimer: The information contained in this section may have been updated after the patient was seen, as this information can be updated by other users. Medical History Abdominal pain Abdominal pain Vitamin D deficiency Vitamin B12 deficiency Diabetes mellitus type 1 Hyperthyroidism Family History Other Cancer Diabetes Hypertension Social History Smoking Status: Unknown if ever smoked alcohol intake: never current occupational status: unemployed Travel in the last 8 weeks: None Have you lived/traveled outside [place] in past 30 days?: No Contact w/someone who lives/traveled outside [place] past 30 days?: No Exposure to someone with infectious disease in past 14 days?: No Do you have a fever (greater than 100.4 F or 38 C)?: No Have you tested positive for COVID-19: No Exposed to someone with COVID-19 in past 14 days?: No Do you have a sore throat?: No Do you have a cough?: No Do you have any weakness?: No Do you have any diarrhea?: No Are you experiencing any unusual bleeding?: No Do you have any muscle aches/pain?: No Do you have any abdominal pain?: No Are you experiencing loss of taste or smell?: No Other Medical History Have you received the Flu Vaccine for this season: No Have you received the Pneumonia Vaccine: No Review of Systems Review of Systems Review of systems (narrative): 14 point review of systems performed, pertinent positives and negatives as per HPI Meds Home Medications and Allergies Home Medications ?Medication ?Instructions ?Recorded ?Confirmed ?Type insulin glargine U-300 conc 300 20 unit (0.0667 mL) SQ HS #6 mL 05/01/24 07/25/24 Rx unit/mL (3 mL) subcutaneous pen (Toujeo Max U-300 SoloStar) pantoprazole 40 mg tablet,delayed 40 mg PO AM 06/27/24 07/25/24 History release blood-glucose sensor (FreeStyle #1 ea 06/29/24 07/25/24 Rx Poli 3 Sensor device) flash glucose sensor (FreeStyle #1 ea 07/02/24 07/25/24 History Poli 2 Sensor kit) pen needle, diabetic 32 gauge x #1,200 ea 07/02/24 07/25/24 History 5/32 (BD Sydnie 2nd Gen Pen Needle) insulin lispro 200 unit/mL (3 mL) See Rx Instructions SQ DIRECTED 07/10/24 07/25/24 Rx subcutaneous pen (Humalog KwikPen #6 mL U-200 Insulin) New Prescriptions to Start Prescriptions: Allergies Allergy/AdvReac Type Severity Reaction Status Date / Time No Known Allergies Allergy Verified 07/25/24 09:52 Exam Data for Last 24 hours Vital signs and Labs for Last 24 Hours: Temp Pulse Resp BP Pulse Ox O2 Del Method 97.8 F 57 L 12 134/79 99 Room Air 08/09/24 13:10 08/09/24 13:30 08/09/24 13:30 08/09/24 13:30 08/09/24 13:30 08/09/24 13:15 Laboratory Results - last 24 hr 08/09/24 13:17: VBG pH 7.36, VBG pCO2 43.1, VBG pO2 41.6 H, VBG HCO3 23.7, VBG Total CO2 25.0, VBG O2 Saturation 74.7 H, VBG Base Excess -1.8, VBG Lactic Acid 3.8 H 08/09/24 13:20: WBC 11.5 H, RBC 4.63, Hgb 13.7 L, Hct 41.2 L, MCV 89.0, MCH 29.6, MCHC 33.3, RDW 12.7, Plt Count 319, MPV 8.7, Neut % (Auto) 89.2 H, Lymph % (Auto) 6.4 L, [place] % (Auto) 3.0, Eos % (Auto) 0.0 L, Baso % (Auto) 0.4, Neut # (Auto) 10.2 H, Lymph # (Auto) 0.7, [place] # (Auto) 0.3, Eos # (Auto) 0.0, Baso # (Auto) 0.1, APTT 20.4 L, Sodium 138, Potassium 4.5, Chloride 96 L, Carbon Dioxide 24, Anion Gap 22.5 H, BUN 17, Creatinine 0.60 L, Estimated Creat Clear 140, Estimated GFR 166, Est GFR ( Amer) 200, Glucose 388 H, Calcium 9.7, Total Bilirubin 0.8, AST 42, ALT 30, Alkaline Phosphatase 92, Troponin I < 0.01, Total Protein 7.6, Albumin 5.3 H, Globulin 2.3, Albumin/Globulin Ratio 2.3 H, Lipase 48 08/09/24 13:34: SARS-CoV-2 (PCR) Not detected, Influenza A Untype (PCR) Not detected, Influenza Type B (PCR) Not detected 08/09/24 13:45: Urine Color Yellow, Urine Appearance Clear, Urine pH 7.5, Ur Specific [place] 1.015, Urine Protein Negative, Urine Glucose (UA) 3+, Urine Ketones 2+, Urine Blood Negative, Urine Nitrate Negative, Urine Bilirubin Negative, Urine Urobilinogen 0.2, Ur Leukocyte Esterase Negative, Urine RBC None, Urine WBC Occasional, Ur Squamous Epith Cells Occasional, Urine Bacteria Trace I & O for Last 24 hours: Intake & Output 08/06/24 08/07/24 08/08/24 08/09/24 23:59 23:59 23:59 23:59 Weight 52.163 kg Constitutional Constitutional: moderate distress and cachectic *Routine HEENT Exam Head: Present normocephalic Eye: Present EOMI and PERRL ENT: Present mucous membranes moist *Routine Neck Exam Neck: Present supple; Absent lymphadenopathy *Routine Respiratory Exam Respiratory: Present CTA bilaterally; Absent respiratory distress, rhonchi, stridor, wheezes or crackles *Routine Cardiovascular Exam Cardiovascular: Present RRR *Routine Abdominal Exam Abdominal: Present soft and normoactive bowel sounds; Absent tenderness *Routine Rectal Exam Rectal:: deferred *Routine Genitalia Exam Genitalia:: deferred *Routine Extremities Exam Extremities: Absent cyanosis, clubbing or edema *Routine Skin Exam Skin: Present intact and warm; Absent rash *Routine Neurological Exam Neurological: Present alert and oriented X3; Absent altered mental status Comments: Fatigued, wanting to sleep Assessment and Plan *Assessment and plan (1) DKA (diabetic ketoacidosis): Status: Resolved Qualifiers: Diabetes mellitus type: type 1 Diabetes mellitus complication detail: without coma Qualified Code(s): E10.10 - Type 1 diabetes mellitus with keto acidosis without coma Category: Medical Code(s): E11.10 - Type 2 diabetes mellitus with ketoacidosis without coma (2) Diabetic gastroparesis: Status: Acute Category: Medical Code(s): E11.43 - Type 2 diabetes mellitus with diabetic autonomic (poly)neuropathy; K31.84 - Gastroparesis (3) Non compliance with medical treatment: Status: Acute Category: Medical Code(s): Z91.199 - Patient's noncompliance with other medical treatment and regimen due to unspecified reason (4) Diabetes mellitus type 1: Status: Acute Qualifiers: Diabetes mellitus complication status: with other specified complication Qualified Code(s): E10.69 - Type 1 diabetes mellitus with other specified complication Category: Medical Code(s): E10.9 - Type 1 diabetes mellitus without complications Plan Barry Joe is a 23-year-old male with a medical history significant for type 1 diabetes, medication nonadherence, gastroparesis, 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 Symptoms began today. Elevated glucose at home, took insulin but did not get any better. On presentation found to be hyperglycemic with ketones in his urine and elevated anion gap. Initiated on insulin drip. Discussed case with ER physician, request admission for diabetic ketoacidosis. I agreed to admit for further management. Tolerating insulin drip. Necessitating ICU level of care given DKA protocol and severity of illness. Problems addressed as follows: #Diabetic ketoacidosis #History of gastroparesis #History of THC use ? Presented with worsening nausea/vomiting and weakness with diarrhea this morning. History of medication nonadherence, poor appetite. Hemoglobin A1c 9.2 today. ? Anion gap elevated at 22. Sodium 138, potassium 4.5, kidney function at baseline with BUN 17, creatinine 0.6. Glucose 388. -BMP every 4 hours. Fingersticks every hour. Continue insulin drip and fluids per protocol. -Phosphorus pending, will monitor for refeeding syndrome -White count marginally elevated at 11, likely due to stress reaction. Repeat CBC, CMP, magnesium ordered for the morning. -Initiate basal insulin with glargine 20 units tonight. Will transition to sliding scale insulin with fingersticks ACHS when gap closes - Protonix 40 mg for GI prophylaxis. ? IV Compazine 5 mg every 6 hours for nausea. ? Diabetic diet. -High risk for decompensation. Treatments necessitating close monitoring. Tobacco abuse -Nicotine patch as needed -Tobacco cessation counseling given Full code DVT prophylaxis: Lovenox 30 mg
--- NOTE | 2024-08-09 15:05 | PC.NURSE ---
finger stick glucose 325 at 1505.
[2024-08-09 15:34] LABS: Hemoglobin A1C 9.2 % (4.0-6.0)
[2024-08-09 15:35] LABS: Acetone, Serum (Rapid) None Detected (None Detect)
[2024-08-09 15:39] LABS: Amphetamine/Metha Screen,Urine Negative ng/ml (<1000)
[2024-08-09 15:40] LABS: Barbiturates Screen,Urine Negative ng/ml (<200)
[2024-08-09 15:41] LABS: Benzodiazepines Screen,Urine Negative ng/ml (<200); Cannabinoid Screen,Urine Positive ng/ml (<50)
[2024-08-09 15:42] LABS: Cocaine Screen,Urine Negative ng/ml (<300)
[2024-08-09 15:43] LABS: Methadone Screen,Urine Negative ng/ml (<300); Opiate Screen,Urine Negative ng/ml (<300)
[2024-08-09 15:44] LABS: Phencyclidine Screen,Urine Negative ng/ml (<25)
[2024-08-09] MEDS: 0.9% NaCl w/20mEq KCL 1,000 ML 150 ML IV (16:18)
[2024-08-09 17:08] LABS: Chloride 101 mmol/L (98-107); Sodium 141 mmol/L (136-145)
[2024-08-09] MEDS: D5W/0.9% NaCl w/20mEq KCL 1,000 ML 125 ML IV (17:08)
[2024-08-09 17:11] LABS: Blood Urea Nitrogen 17 mg/dl (9-20); Carbon Dioxide 26 mmol/L (22.0-30.0); Creatinine Clearance Estimated 119 mL/min (50-200); Estimated Glomerular Filt Rate 139 ml/min (>60); GFR (African American) 168 ML/MIN (>60); Phosphorous 2.4 mg/dl (2.5-4.5)
[2024-08-09 17:12] LABS: Calcium 9.4 mg/dl (8.4-10.2); Glucose 164 mg/dl (74-100); Magnesium 1.5 mg/dl (1.6-2.3)
[2024-08-09 17:18] LABS: Troponin I < 0.01 ng/ml (0.00-0.034)
[2024-08-09 17:22] LABS: POC Glucose,Bedside 189 (70-110)
[2024-08-09 17:22] LABS: POC Glucose,Bedside 139 (70-110)
[2024-08-09 17:40] LABS: Reflex Lactic Add Lactic Reflex
[2024-08-09 18:10] LABS: POC Glucose,Bedside 196 (70-110)
--- NOTE | 2024-08-09 18:56 | PC.NURSE ---
Per Dr. Schultz, if GAP is closed at next lab check, discontinue insulin drip and start sliding scale insulin.
[2024-08-09 19:34] LABS: Chloride 103 mmol/L (98-107); Potassium 4.2 mmoL/L (3.5-5.1); Sodium 140 mmol/L (136-145)
[2024-08-09 19:37] LABS: Anion Gap 14.2 mEq/L (5-15); Blood Urea Nitrogen 17 mg/dl (9-20); Calcium 8.9 mg/dl (8.4-10.2); Carbon Dioxide 27 mmol/L (22.0-30.0); Creatinine Clearance Estimated 138 mL/min (50-200); Estimated Glomerular Filt Rate 166 ml/min (>60); GFR (African American) 200 ML/MIN (>60); Glucose 189 mg/dl (74-100); Magnesium 1.5 mg/dl (1.6-2.3); Phosphorous 2.3 mg/dl (2.5-4.5)
[2024-08-09 19:38] LABS: Lactic Acid Follow Up (RFLX 1) 1.4 mmol/L (0.7-2.1)
[2024-08-09 19:50] LABS: Troponin I < 0.01 ng/ml (0.00-0.034)
[2024-08-09 20:13] LABS: POC Glucose,Bedside 168 (70-110)
[2024-08-09] MEDS: PANTOPRAZOLE 40MG TABLET 40 MG PO (20:30)
[2024-08-09 21:15] LABS: POC Glucose,Bedside 157 (70-110)
[2024-08-09 22:13] LABS: POC Glucose,Bedside 150 (70-110)
[2024-08-09 23:12] LABS: Chloride 106 mmol/L (98-107); Sodium 139 mmol/L (136-145)
[2024-08-09 23:13] LABS: POC Glucose,Bedside 149 (70-110)
[2024-08-09 23:15] LABS: Blood Urea Nitrogen 17 mg/dl (9-20); Calcium 8.5 mg/dl (8.4-10.2); Carbon Dioxide 27 mmol/L (22.0-30.0); Creatinine Clearance Estimated 138 mL/min (50-200); Estimated Glomerular Filt Rate 166 ml/min (>60); GFR (African American) 200 ML/MIN (>60); Glucose 167 mg/dl (74-100); Magnesium 1.5 mg/dl (1.6-2.3); Phosphorous 3.4 mg/dl (2.5-4.5)
[2024-08-09] MEDS: INSULIN GLARGINE 100 UNITS/ML 3ML FLEXPEN 20 UNIT SUBCUT (23:24)
[2024-08-10] VITALS (13 sets, daily range): BP systolic 84–137; BP diastolic 42–87; PULSE 55–95; RESP 11–21; TEMP 36.9–37.2; O2SAT 95–99; BMI 18.0
[2024-08-10] MEDS: LACTATED RINGERS 1000ML 1,000 ML 100 ML IV ×3 (00:25→22:21)
[2024-08-10 00:40] LABS: POC Glucose,Bedside 134 (70-110)
[2024-08-10 01:20] LABS: POC Glucose,Bedside 86 (70-110)
[2024-08-10] MEDS: PROCHLORPERAZINE 10MG/2ML VIAL 5 MG IV ×3 (01:27→22:56)
[2024-08-10 02:13] LABS: POC Glucose,Bedside 105 (70-110)
[2024-08-10 03:16] LABS: POC Glucose,Bedside 101 (70-110)
[2024-08-10] MEDS: humaLOG 100 UNITS/ML 10ML VIAL (SSI) SUBCUT ×2 (05:51→20:50)
[2024-08-10 05:54] LABS: POC Glucose,Bedside 171 (70-110)
[2024-08-10 08:43] LABS: Chloride 108 mmol/L (98-107); Potassium 3.5 mmoL/L (3.5-5.1); Sodium 142 mmol/L (136-145)
[2024-08-10] MEDS: PANTOPRAZOLE 40MG TABLET 40 MG PO ×2 (08:44→20:49)
[2024-08-10 08:46] LABS: Blood Urea Nitrogen 17 mg/dl (9-20); Creatinine Clearance Estimated 140 mL/min (50-200); Estimated Glomerular Filt Rate 166 ml/min (>60); GFR (African American) 200 ML/MIN (>60)
[2024-08-10 08:47] LABS: Anion Gap 9.5 mEq/L (5-15); Calcium 8.5 mg/dl (8.4-10.2); Carbon Dioxide 28 mmol/L (22.0-30.0); Glucose 94 mg/dl (74-100); Magnesium 1.5 mg/dl (1.6-2.3); Phosphorous 2.4 mg/dl (2.5-4.5)
[2024-08-10 08:59] LABS: POC Glucose,Bedside 111 (70-110)
[2024-08-10] MEDS: MAGNESIUM SULFATE IN WATER 2 GM/50 ML PIGGYBACK IV ×2 (10:45→13:21)
[2024-08-10 11:00] LABS: POC Glucose,Bedside 150 (70-110)
[2024-08-10] MEDS: POTASSIUM CHLORIDE 20MEQ TAB 40 MEQ PO ×2 (13:19→16:29)
--- NOTE | 2024-08-10 15:40 | P.PN_ITS ---
Subjective *Date: 08/10/24 *Time: 15:40 Interval history: Gap closed overnight. Showing little improvement today. Vital stable. Will discontinue telemetry. De-escalate to MedSurg. Tolerating basal bolus regimen. Advancing diet as tolerated. Stable on room air Medical Exam Vital signs and Labs for Last 24 Hours: Vital Signs Temp Pulse Pulse Resp BP Pulse Ox O2 Del Method 08/10/24 15:00 Room Air 08/10/24 13:00 Room Air 08/10/24 11:00 Room Air 08/10/24 09:02 94/49 L 08/10/24 09:02 62 14 98 Nasal Cannula 08/10/24 09:00 Room Air 08/10/24 08:20 Room Air 08/10/24 08:00 59 L 08/10/24 08:00 98.8 F 58 L 15 93/53 L 97 08/10/24 07:00 55 L 17 96 08/10/24 07:00 100/52 L 08/10/24 06:22 Room Air 08/10/24 06:02 131/87 08/10/24 06:02 95 H 99 08/10/24 06:00 89 99 08/10/24 05:00 68 16 97 08/10/24 05:00 84/49 L 08/10/24 05:00 Room Air 08/10/24 04:00 64 97 Room Air 08/10/24 04:00 69 11 L 97 08/10/24 04:00 98/61 L 08/10/24 04:00 98.6 F 08/10/24 04:00 67 08/10/24 03:00 Room Air 08/10/24 03:00 77 15 97 08/10/24 03:00 94/50 L 08/10/24 02:00 73 16 95 08/10/24 02:00 95/42 L 08/10/24 01:00 Room Air 08/10/24 01:00 64 15 97 08/10/24 01:00 92/48 L 08/10/24 00:00 59 L 08/10/24 00:00 65 97 Room Air 08/10/24 00:00 68 21 95 08/10/24 00:00 101/55 L 08/10/24 00:00 99 F 08/09/24 23:00 Room Air 08/09/24 23:00 62 18 96 08/09/24 23:00 104/68 L 08/09/24 22:00 93/52 L 08/09/24 22:00 69 17 95 08/09/24 21:00 88 14 96 08/09/24 21:00 94/58 L 08/09/24 20:51 Room Air 08/09/24 20:00 73 96 Room Air 08/09/24 20:00 98.8 F 66 17 92/55 L 96 Room Air 08/09/24 20:00 67 08/09/24 19:00 71 17 96 08/09/24 19:00 106/50 L 08/09/24 18:41 Room Air 08/09/24 18:12 56 L 08/09/24 18:00 73 11 L 97 Room Air 08/09/24 18:00 105/64 L 08/09/24 17:00 Room Air 08/09/24 17:00 74 20 95/60 L 95 Room Air 08/09/24 16:00 98.4 F 67 19 111/74 96 Room Air 08/09/24 15:43 56 L 14 106/71 L 96 Room Air Intake and Output 08/09/24 08/10/24 08/10/24 23:59 07:59 15:59 Intake Total 07.09 491.325 / 491.325 Output Total 600 / 600 Balance 07.09 -108.675 / -108.675 Intake: Intake, Oral Amount 480 / 480 Intake, Total IV Amount 07.09 11.325 / 11.325 Output: Output, Urine Amount 600 / 600 Other: Weight 52.072 kg Patient Weight 08/10/24 23:59 Weight 52.072 kg Laboratory Results - last 24 hr 08/09/24 13:45: Urine Opiates Screen Negative, Urine Methadone Screen Negative, Ur Barbituates Screen Negative, Ur Phencyclidine Scrn Negative, Ur Amphetamines Screen Negative, U Benzodiazepines Scrn Negative, Urine Cocaine Screen Negative, U Marijuana (THC) Screen Positive H 08/09/24 16:14: POC Glucose 189 H 08/09/24 16:30: Sodium 141, Potassium 4.0, Chloride 101, Carbon Dioxide 26, Anion Gap 18.0 H, BUN 17, Creatinine 0.70, Estimated Creat Clear 119, Estimated GFR 139, Est GFR ( Amer) 168, Glucose 164 H D, Calcium 9.4, Phosphorus 2.4 L, Magnesium 1.5 L, Troponin I < 0.01 08/09/24 16:59: POC Glucose 139 H 08/09/24 18:03: POC Glucose 196 H 08/09/24 19:05: Sodium 140, Potassium 4.2, Chloride 103, Carbon Dioxide 27, A nion Gap 14.2, BUN 17, Creatinine 0.60 L, Estimated Creat Clear 138, Estimated GFR 166, Est GFR ( Amer) 200, Glucose 189 H, Lactate 1.4, Calcium 8.9, Phosphorus 2.3 L, Magnesium 1.5 L, Troponin I < 0.01 08/09/24 20:04: POC Glucose 168 H 08/09/24 21:07: POC Glucose 157 H 08/09/24 22:07: POC Glucose 150 H 08/09/24 23:00: Sodium 139, Potassium 4.0, Chloride 106, Carbon Dioxide 27, Anion Gap 10.0, BUN 17, Creatinine 0.60 L, Estimated Creat Clear 138, Estimated GFR 166, Est GFR ( Amer) 200, Glucose 167 H, Calcium 8.5, Phosphorus 3.4 D, Magnesium 1.5 L 08/09/24 23:06: POC Glucose 149 H 08/10/24 00:28: POC Glucose 134 H 08/10/24 01:13: POC Glucose 86 08/10/24 02:06: POC Glucose 105 08/10/24 03:10: POC Glucose 101 08/10/24 05:47: POC Glucose 171 H 08/10/24 07:59: Sodium 142, Potassium 3.5, Chloride 108 H, Carbon Dioxide 28, Anion Gap 9.5, BUN 17, Creatinine 0.60 L, Estimated Creat Clear 140, Estimated GFR 166, Est GFR ( Amer) 200, Glucose 94 D, Calcium 8.5, Phosphorus 2.4 L D, Magnesium 1.5 L 08/10/24 08:49: POC Glucose 111 H 08/10/24 10:51: POC Glucose 150 H I & O for Labs for Last 24 Hours: Intake & Output 08/07/24 08/08/24 08/09/24 08/10/24 23:59 23:59 23:59 23:59 Intake Total 12.25 / 12.25 491.325 / 491.325 Output Total 600 / 600 Balance 12.25 / 12.25 -108.675 / -108.675 Weight 51.511 kg 52.072 kg Constitutional: Present no acute distress, thin and chronically ill appearing Head: Present atraumatic and normocephalic ENT: Present normal exam Neck: Present normal inspection Respiratory: Present normal respiratory effort; Absent rhonchi, wheezes or c rackles Cardiac: Present Reg Rate and Rhythm GI: Present soft and normal bowel sounds; Absent distention, tenderness, guarding or rebound Extremities: Present normal inspection and full ROM Skin: Present intact; Absent erythema Neuro: Present Grossly Intact, alert, awake, oriented x 3 and moves all extremities Assessment and Plan *Assessment and plan (1) DKA (diabetic ketoacidosis): Status: Resolved Qualifiers: Diabetes mellitus type: type 1 Diabetes mellitus complication detail: without coma Qualified Code(s): E10.10 - Type 1 diabetes mellitus with ketoacidosis without coma Category: Medical Code(s): E11.10 - Type 2 diabetes mellitus with ketoacidosis without coma (2) Diabetic gastroparesis: Status: Acute Category: Medical Code(s): E11.43 - Type 2 diabetes mellitus with diabetic autonomic (poly)neuropathy; K31.84 - Gastroparesis (3) Non compliance with medical treatment: Status: Acute Category: Medical Code(s): Z91.199 - Patient's noncompliance with other medical treatment and regimen due to unspecified reason (4) Diabetes mellitus type 1: Status: Acute Qualifiers: Diabetes mellitus complication status: with other specified complication Qualified Code(s): E10.69 - Type 1 diabetes mellitus with other specified complication Category: Medical Code(s): E10.9 - Type 1 diabetes mellitus without complications Plan Barry Joe is a 23-year-old male with a medical history significant for type 1 diabetes, medication nonadherence, gastroparesis, 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 Symptoms began today. Elevated glucose at home, took insulin but did not get any better. On presentation found to be hyperglycemic with ketones in his urine and elevated anion gap. Initiated on insulin drip. Discussed case with ER physician, request admission for diabetic ketoacidosis. I agreed to admit for further management. Gap closed overnight. Transitioned to basal bolus regimen. Glucose 94 morning labs. De-escalate to MedSurg. Problems addressed as follows: #Diabetic ketoacidosis #History of gastroparesis #History of THC use ? Presented with worsening nausea/vomiting and weakness with diarrhea this morning. History of medication nonadherence, poor appetite. Hemoglobin A1c 9.2 today. ? Anion gap closed overnight. Morning glucose 94. Kidney function normal with BUN for 17, creatinine 0.6. Sodium 142. -Tolerating sliding scale insulin with fingersticks ACHS. -CBC, CMP, magnesium ordered for the morning. -Phosphorus appropriate at 2.4. -Continue glargine 20 units nightly - Protonix 40 mg for GI prophylaxis. ? IV Compazine 5 mg every 6 hours for nausea. ? Diabetic diet. Tobacco abuse -Nicotine patch as needed -Tobacco cessation counseling given Full code DVT prophylaxis: Lovenox 30 mg
--- NOTE | 2024-08-10 16:34 | PC.NURSE ---
patient is a/ox4, remains on room air. has c/o nausea and vomiting this shift, treated per SEP. patient stated compazine was effective in treating nausea/vomiting. blood sugars have been slightly elevated, although no sliding scale needed. patient is tolerating PO fluids but not eating much. LR @ 100. electrolyte protocol in place, IV mag and oral potassium given today per protocol. ambulates independently. call light within reach, no further requests at this time.
[2024-08-10 16:39] LABS: POC Glucose,Bedside 145 (70-110)
[2024-08-10] MEDS: INSULIN GLARGINE 100 UNITS/ML 3ML FLEXPEN 20 UNIT SUBCUT (20:50)
[2024-08-10 21:03] LABS: POC Glucose,Bedside 193 (70-110)
[2024-08-11] VITALS: BP 99/56; PULSE 63; RESP 16; TEMP 36.9; O2SAT 98
[2024-08-11 04:00] VITALS: BP 106/59; PULSE 86; RESP 16; TEMP 36.8; O2SAT 98; BMI 18.4
[2024-08-11 06:35] LABS: POC Glucose,Bedside 66 (70-110)
[2024-08-11 06:35] LABS: POC Glucose,Bedside 59 (70-110)
--- NOTE | 2024-08-11 06:45 | PC.NURSE ---
0530: Pt glucose level was 56, apple juice given to pt 0600: glucose recheck 66, pt given additional juice with sugar
[2024-08-11 08:00] VITALS: BP 121/82; PULSE 91; RESP 18; TEMP 37.3; O2SAT 97
[2024-08-11] MEDS: PANTOPRAZOLE 40MG TABLET 40 MG PO (08:02)
[2024-08-11 11:00] LABS: Basophils % 0.2 % (0.1-2.0); Eosinophils % 0.1 % (0.1-12.0); Hematocrit 35.6 % (42.0-52.0); Lymphocytes # 2.1 K/mm3 (0.7-4.5); Lymphocytes % 17.8 % (10-50); Mean Corpuscular HGB Conc 33.7 g/dL (31.8-35.4); Mean Corpuscular Hemoglobin 29.9 pg (27.0-31.2); Mean Corpuscular Volume 88.8 fl (80-94); Mean Platelet Volume 8.3 fl (7.4-10.4); Monocytes # 0.8 K/mm3 (0.1-1.0); Monocytes % 7.2 % (1.7-9.3); Neutrophils # 8.7 K/mm3 (1.8-7.8); Neutrophils % 73.6 % (37.0-80.0); Platelet Count 278 K/mm3 (142-424); Red Blood Count 4.01 M/mm3 (4.60-6.20); Red Cell Distribution Width 12.7 % (11.5-17.5); White Blood Count 11.7 K/mm3 (4.8-10.8)
[2024-08-11] MEDS: METOCLOPRAMIDE 5MG TABLET 5 MG PO ×2 (11:04→16:05)
[2024-08-11 11:05] LABS: POC Glucose,Bedside 143 (70-110)
[2024-08-11 11:21] LABS: Alanine Aminotransferase 24 U/L (12-78); Albumin Level 4.3 g/dl (3.5-5.0); Albumin/Globulin Ratio 2.3 (1.1-1.8); Alkaline Phosphatase 62 U/L (38-126); Anion Gap 9.2 mEq/L (5-15); Aspartate Amino Transferase 38 U/L (17-59); Bilirubin,Total 0.4 mg/dl (0.2-1.3); Blood Urea Nitrogen 12 mg/dl (9-20); Calcium 8.6 mg/dl (8.4-10.2); Carbon Dioxide 25 mmol/L (22.0-30.0); Chloride 103 mmol/L (98-107); Creatinine Clearance Estimated 172 mL/min (50-200); Estimated Glomerular Filt Rate 204 ml/min (>60); GFR (African American) 247 ML/MIN (>60); Globulin 1.9 g/dL (1.3-3.2); Glucose 137 mg/dl (74-100); Potassium 3.2 mmoL/L (3.5-5.1); Sodium 134 mmol/L (136-145); Total Protein,Serum 6.2 g/dl (6.3-8.2)
[2024-08-11 11:58] VITALS: BP 113/56; PULSE 79; RESP 18; TEMP 36.9; O2SAT 99
[2024-08-11 13:36] LABS: Magnesium 1.6 mg/dl (1.6-2.3)
[2024-08-11] MEDS: MAGNESIUM SULFATE IN WATER 2 GM/50 ML PIGGYBACK IV ×2 (14:23→15:25)
[2024-08-11] MEDS: POTASSIUM CHLORIDE 20MEQ TAB 40 MEQ PO ×2 (14:24→16:23)
--- NOTE | 2024-08-11 14:51 | EXP.DC.SUM ---
General Admission date:: 08/09/24 Discharge date: 08/11/24 HPI HPI HPI: Barry Joe is a 23-year-old male with history of type 1 diabetes, recurrent DKA, gastroparesis, cyclic vomiting. He presented to the ER because of onset of nausea vomiting diarrhea this morning. Sister is with him today. Denies any fever or known sick contacts. Reports taking his insulin at home per his normal regimen. Took 10 units of Humalog this morning when his meter read hi . On presentation to the ER, patient is quite fatigued and ill-appearing. Glucose elevated above 400, anion gap in the 20s. Ketones in his urine. Medicine consulted for admission and management of his DKA. Recent admission last month for similar presentation. Stable on room air. Patient also continues to use cannabis which complicates his vomiting syndrome. Supposed to recently established with endocrine, reported history of being set up with poli and insulin pump. On evaluation, patient cachectic on exam. Stable on room air. Afebrile. Denies any chest pain or shortness of breath. Remarkable labs include white count of 11, anion gap of 22, creatinine 0.6, A1c 9.2, urine positive for THC. Hypernatremia last visit, sodium 138 today. Troponin negative. 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 Symptoms began today. Elevated glucose at home, took insulin but did not get any better. On presentation found to be hyperglycemic with ketones in his urine and elevated anion gap. Initiated on insulin drip. Discussed case with ER physician, request admission for diabetic ketoacidosis. I agreed to admit for further management. Responded more briskly this visit to treatment for DKA than he has in the past. Suspect because his condition was called earlier. Gap closed, transition to basal bolus regimen. Tolerating p.o. nutrition. Responding well to Reglan for nausea and vomiting. Stable discharge home with close follow-up with his ships or barges loader. Problems addressed as follows: #Diabetic ketoacidosis #History of gastroparesis #History of THC use ? Presented with worsening nausea/vomiting and weakness with diarrhea this morning. History of medication nonadherence, poor appetite. Hemoglobin 9.2 this admission. Had elevated anion gap with hyperglycemia. Gap closed after initiating DKA protocol. Was able to transition in the first 24 hours to basal bolus regimen. Showed improvement in glucose control. Able to gradually advance diet. Initially necessitating Compazine for nausea and vomiting. Transition to Reglan as patient has history of diabetic gastroparesis. Tolerated this well with improvement in nutrition intake. Will discharge home with Reglan as needed with meals. Continue basal regimen of glargine 20 units nightly. Continue mealtime per sliding scale that he uses at home. Kidney function electrolytes stable. Follow-up with ships or barges loader. Currently working on getting a pump and CGM as an outpatient. Tobacco abuse -Nicotine patch ordered as needed during admission. Total time spent on discharge 32 minutes in counseling, documentation, chart review, and direct care with patient. Exam Data for Last 24 hours Vital signs and Labs for Last 24 Hours: Temp Pulse Resp BP Pulse Ox O2 Del Method 98.5 F 79 18 113/56 L 99 Room Air 08/11/24 11:58 08/11/24 11:58 08/11/24 11:58 08/11/24 11:58 08/11/24 11:58 08/11/24 12:46 Laboratory Results - last 24 hr 08/10/24 16:28: POC Glucose 145 H 08/10/24 20:49: POC Glucose 193 H 08/11/24 05:48: POC Glucose 59 L 08/11/24 06:22: POC Glucose 66 L 08/11/24 10:43: POC Glucose 143 H 08/11/24 10:49: WBC 11.7 H, RBC 4.01 L, Hgb 12.0 L, Hct 35.6 L, MCV 88.8, MCH 29.9, MCHC 33.7, RDW 12.7, Plt Count 278, MPV 8.3, Neut % (Auto) 73.6, Lymph % (Auto) 17.8, Cassia % (Auto) 7.2, Eos % (Auto) 0.1, Baso % (Auto) 0.2, Neut # (Auto) 8.7 H, Lymph # (Auto) 2.1, Cassia # (Auto) 0.8, Eos # (Auto) 0.0, Baso # (Auto) 0.0, Sodium 134 L, Potassium 3.2 L, Chloride 103, Carbon Dioxide 25, Anion Gap 9.2, BUN 12 D, Creatinine 0.50 L, Estimated Creat Clear 172, Estimated GFR 204, Est GFR ( Amer) 247 D, Glucose 137 H, Calcium 8.6, Magnesium 1.6, Total Bilirubin 0.4, AST 38, ALT 24, Alkaline Phosphatase 62, Total Protein 6.2 L, Albumin 4.3, Globulin 1.9, Albumin/Globulin Ratio 2.3 H I & O for Last 24 hours: Intake & Output 08/08/24 08/09/24 08/10/24 08/11/24 23:59 23:59 23:59 23:59 Intake Total .07.09 1771.325 / 2511.325 1100 / 1100 Output Total 1600 / 1600 600 / 600 Balance 07.09 171.325 / 911.325 500 / 500 Weight 51.511 kg 52.072 kg 53.388 kg Constitutional Constitutional: no acute distress, thin, chronically ill appearing and cooperative *Routine HEENT Exam Head: Present normocephalic Eye: Present EOMI and PERRL ENT: Present mucous membranes moist *Routine Neck Exam Neck: Present supple; Absent lymphadenopathy *Routine Respiratory Exam Respiratory: Present CTA bilaterally; Absent rhonchi, wheezes or crackles *Routine Cardiovascular Exam Cardiovascular: Present RRR *Routine Abdominal Exam Abdominal: Present soft and normoactive bowel sounds; Absent tenderness or distended *Routine Rectal Exam Patient deferred: visual exam *Routine Exam Patient deferred: penile exam *Routine Extremities Exam Extremities: Absent cyanosis, clubbing or edema *Routine Skin Exam Skin: Present warm; Absent rash *Routine Neurological Exam Neurological: Present alert, oriented X3 and moving all extremities; Absent altered mental status Routine Psychiatric Exam Psychiatric: Present normal affect; Absent good insight or good judgment Results Data Completed and Pending Labs on day of discharge: Labs from last 24 hours 08/11/24 08/11/24 08/11/24 10:49 10:43 06:22 WBC 11.7 H RBC 4.01 L Hgb 12.0 L Hct 35.6 L MCV 88.8 MCH 29.9 MCHC 33.7 RDW 12.7 Plt Count 278 MPV 8.3 Neut % (Auto) 73.6 Lymph % (Auto) 17.8 Cassia % (Auto) 7.2 Eos % (Auto) 0.1 Baso % (Auto) 0.2 Neut # (Auto) 8.7 H Lymph # (Auto) 2.1 Cassia # (Auto) 0.8 Eos # (Auto) 0.0 Baso # (Auto) 0.0 Sodium 134 L Potassium 3.2 L Chloride 103 Carbon Dioxide 25 Anion Gap 9.2 BUN 12 D Creatinine 0.50 L Estimated Creat Clear 172 Estimated GFR 204 Est GFR ( Amer) 247 D Glucose 137 H POC Glucose 143 H 66 L Calcium 8.6 Magnesium 1.6 Total Bilirubin 0.4 AST 38 ALT 24 Alkaline Phosphatase 62 Total Protein 6.2 L Albumin 4.3 Globulin 1.9 Albumin/Globulin Ratio 2.3 H 08/11/24 08/10/24 08/10/24 05:48 20:49 16:28 WBC RBC Hgb Hct MCV MCH MCHC RDW Plt Count MPV Neut % (Auto) Lymph % (Auto) Cassia % (Auto) Eos % (Auto) Baso % (Auto) Neut # (Auto) Lymph # (Auto) Cassia # (Auto) Eos # (Auto) Baso # (Auto) Sodium Potassium Chloride Carbon Dioxide Anion Gap BUN Creatinine Estimated Creat Clear Estimated GFR Est GFR ( Amer) Glucose POC Glucose 59 L 193 H 145 H Calcium Magnesium Total Bilirubin AST ALT Alkaline Phosphatase Total Protein Albumin Globulin Albumin/Globulin Ratio DS: Diagnosis Discharge Diagnosis (1) DKA (diabetic ketoacidosis): Status: Resolved Code(s): E11.10 - Type 2 diabetes mellitus with ketoacidosis without coma Qualifiers: Diabetes mellitus complication detail: without coma Diabetes mellitus type: type 1 Qualified Code(s): E10.10 - Type 1 diabetes mellitus with ketoacidosis without coma (2) Diabetic gastroparesis: Status: Acute Code(s): E11.43 - Type 2 diabetes mellitus with diabetic autonomic (poly)neuropathy; K31.84 - Gastroparesis (3) Non compliance with medical treatment: Status: Acute Code(s): Z91.199 - Patient's noncompliance with other medical treatment and regimen due to unspecified reason (4) Diabetes mellitus type 1: Status: Acute Code(s): E10.9 - Type 1 diabetes mellitus without complications Qualifiers: Diabetes mellitus complication status: with other specified complication Qualified Code(s): E10.69 - Type 1 diabetes mellitus with other specified complication Meds Home Medications and Allergies Home Medications ?Medication ?Instructions ?Recorded ?Confirmed ?Type insulin glargine U-300 conc 300 20 unit (0.0667 mL) SQ HS #6 mL 05/01/24 08/09/24 Rx unit/mL (3 mL) subcutaneous pen (Toujeo Max U-300 SoloStar) pantoprazole 40 mg tablet,delayed 40 mg PO AM 06/27/24 08/09/24 History release blood-glucose sensor (FreeStyle #1 ea 06/29/24 07/25/24 Rx Poli 3 Sensor device) flash glucose sensor (FreeStyle #1 ea 07/02/24 07/25/24 History Poli 2 Sensor kit) pen needle, diabetic 32 gauge x #1,200 ea 07/02/24 07/25/24 History 5/32 (BD Sydnie 2nd Gen Pen Needle) insulin lispro 100 unit/mL 10 - 15 unit SQ AC 08/10/24 08/10/24 History subcutaneous pen metoclopramide HCl 5 mg tablet 5 mg PO ACHS PRN Nausea And 08/11/24 Rx Vomiting 30 days #120 tabs potassium chloride 20 mEq 40 meq (2 x 20 mEq) PO DAILY 30 08/11/24 Rx tablet,extended days #60 tabs release(part/cryst) (Klor-Con M) New Prescriptions to Start Prescriptions: metoclopramide HCl Harshil Schultz potassium chloride [Klor-Con M20] Harshil Schultz Allergies Allergy/AdvReac Type Severity Reaction Status Date / Time No Known Allergies Allergy Verified 07/25/24 09:52 Discharge Plan Disposition Patient Disposition: Home, Self-Care Condition: Fair Discharge Order Discharge Orders: Discharge Order (Routine); Ordered 08/11/24 Ordered By: Harshil Schultz Follow up Plan Follow up with: Gretchen Angelo APRN [Primary Care Provider] - 08/18/24 10:00 am Prescriptions/Medication Reconciliation: New potassium chloride [Klor-Con M20] 20 mEq Tablet,Er Particles/Crystals 40 meq PO DAILY 30 Days Qty: 60 0RF metoclopramide HCl 5 mg Tablet 5 mg PO ACHS PRN (Reason: Nausea And Vomiting) 30 Days Qty: 120 0RF Continued (DME) pen needle, diabetic [BD Sydnie 2nd Gen Pen Needle] 32 gauge x /32 needle See Rx Instructions .ROUTE .MEDSUPPLY Qty: 1200 Patient Comments: USE DIRECTED Rx Instructions: As directed (DME) FreeStyle Poli 2 Sensor Kit See Rx Instructions .ROUTE .MEDSUPPLY Qty: 1 Patient Comments: USE 1 KIT EVERY 14 DAYS Rx Instructions: As directed insulin glargine U-300 conc [Toujeo Max U-300 SoloStar] 300 unit/mL (3 mL) insulin pen 20 unit SQ HS Qty: 6 0RF insulin lispro 100 unit/mL Insulin Pen 10 - 15 unit SQ AC pantoprazole 40 mg tablet,delayed release (DR/EC) 40 mg PO AM Patient Comments: TAKE 1 TABLET BY MOUTH ONCE DAILY ON AN EMPTY STOMACH (DME) FreeStyle Poli 3 Sensor Device See Rx Instructions .Route Qty: 1 1RF Rx Instructions: As directed Problem Reconciliation Problems Reviewed?: Yes Patient Discharge Instructions ACTIVITY: Continue current activity DIET: continue same diet Patient Instructions: Carbohydrate-Counting Diet, DI for Diabetic Ketoacidosis, Diabetes Diet Label Reading Tips Print Language: Maltese Providers Primary Care Provider: Gretchen Angelo Admit Provider: Harshil Schultz Attending Provider: Harshil Schultz
[2024-08-11 16:17] LABS: POC Glucose,Bedside 102 (70-110)
--- NOTE | 2024-08-12 10:01 | CARE MANAGER ---
Called and spoke with patient's mother regarding recent discharge. Patient was able to get all prescribed medication prior to discharge. Patient stated prior to discharge that he was unable to get the FreeStyle Lebre 3 that was prescribed back in April, due to it needing a PA. I have spoken with pharmacy @ [facility] and plan is for patient to follow up with e marketing specialist on 08/21 for new order. No known concerns at this time.
== END 2024-08-11 16:45 | disposition home or self-care (01) | DRG 638 ==
LOC: ER 14:23 → ICU 14:54 → 2ND 08-10 08:19
PROVIDERS: Admitting Provider Internal Medicine Adolescent Medicine; Emergency Provider Emergency Medicine; PCP Nurse Practitioner; Visit Provider Internal Medicine Adolescent Medicine
DX: E10.10 Type 1 diabetes mellitus with ketoacidosis without coma (principal); R64 Cachexia; Z68.1 Body mass index [BMI] 19.9 or less, adult; Z79.4 Long term (current) use of insulin; Z91.148 Patient's other noncompliance with medication regimen for other reason; E10.43 Type 1 diabetes mellitus with diabetic autonomic (poly)neuropathy; K31.84 Gastroparesis; R11.15 Cyclical vomiting syndrome unrelated to migraine; F12.99 Cannabis use, unspecified with unspecified cannabis-induced disorder; Z71.6 Tobacco abuse counseling; F17.200 Nicotine dependence, unspecified, uncomplicated
CPT/HCPCS: 36415; 80048; 80053; 80307; 81001; 82009; 82803; 82962; 83036; 83605; 83690; 83735; 84100; 84484; 85025; 85730; 87636; 93005; 99291; J0780; J2405; J3475; J7120

== ENCOUNTER 2024-08-18 11:40 | Outpatient (CLI) | payer OTHER, SELFPAY ==
[2024-08-18 20:13] LABS: Hemoglobin A1C 8.3 % (4.0-6.0)
[2024-08-18 20:35] LABS: Microalbumin/Creatinine Ratio 16.5
[2024-08-18 20:58] LABS: Alanine Aminotransferase 21 U/L (12-78); Albumin Level 4.7 g/dl (3.5-5.0); Albumin/Globulin Ratio 3.1 (1.1-1.8); Alkaline Phosphatase 76 U/L (38-126); Anion Gap 10.9 mEq/L (5-15); Aspartate Amino Transferase 31 U/L (17-59); Bilirubin,Total 0.3 mg/dl (0.2-1.3); Blood Urea Nitrogen 18 mg/dl (9-20); Calcium 9.5 mg/dl (8.4-10.2); Carbon Dioxide 30 mmol/L (22.0-30.0); Chloride 104 mmol/L (98-107); Chol/HDL Ratio 2.1 (1-3.5); Cholesterol 164 mg/dl (140-200); Estimated Glomerular Filt Rate 204 ml/min (>60); GFR (African American) 247 ML/MIN (>60); Globulin 1.5 g/dL (1.3-3.2); Glucose 54 mg/dl (74-100); HDL Cholesterol 77 mg/dl (40-60); Potassium 3.9 mmoL/L (3.5-5.1); Sodium 141 mmol/L (136-145); Total Protein,Serum 6.2 g/dl (6.3-8.2); Triglycerides 100 mg/dl (30-150); VLDL Cholesterol 20 mg/dL (0-40)
[2024-08-18 21:18] LABS: Creatinine,Urine Random 152 mg/dL (Not Estab.); Direct LDL Cholesterol 59.36 mg/dL (100-129)
[2024-08-18 21:27] LABS: 25-OH Vitamin D, Total 20.8 ng/mL (30-100)
[2024-08-18 22:03] LABS: Vitamin B12 684 pg/mL (239-931)
== END 2024-08-18 23:59 | disposition home or self-care (01) ==
LOC: LAB.DROPOF 08-19 09:45
PROVIDERS: PCP Nurse Practitioner; Visit Provider Nurse Practitioner
DX: E55.9 Vitamin D deficiency, unspecified (principal); E53.8 Deficiency of other specified B group vitamins; E10.69 Type 1 diabetes mellitus with other specified complication; Z12.5 Encounter for screening for malignant neoplasm of prostate
CPT/HCPCS: 80053; 80061; 82043; 82306; 82570; 82607; 83036

== ENCOUNTER 2024-10-16 14:47 | Inpatient (IN) | payer OTHER, SELFPAY ==
[2024-10-16] VITALS (11 sets, daily range): BP systolic 120–139; BP diastolic 68–97; PULSE 47–85; RESP 12–22; TEMP 36.7–37.2; O2SAT 97–99; BMI 19.3; BMI 19.9
--- NOTE | 2024-10-16 14:51 | XR_ITS ---
FINAL REPORT CLINICAL HISTORY: Shortness of breath COMPARISON: 06/26/2024 FINDINGS: No acute pulmonary opacity is present. There is no evidence of effusion or pneumothorax. Mediastinum is unremarkable. Heart size is normal. IMPRESSION: No acute abnormality. Reviewed, Interpreted and Dictated by Traci Chang MD Transcribed by Lauren Pastrana Authenticated and [facility]
--- NOTE | 2024-10-16 14:56 | ED_ITS ---
<Statement entered by Jaxson Reynaga MD - 10/16/24 20:07> I was consulted by the ANUPAM, and we discussed the complexity of the problems being addressed. I approved the treatment and management plan for this patient's care in the emergency department, thus performing a substantive portion of the medical decision making. Jaxson Reynaga MD, FAMILIA, FACEP Discharge Plan Disposition Patient Disposition: Home, Self-Care Prescriptions Prescriptions: No Action (DME) pen needle, diabetic [BD Sydnie 2nd Gen Pen Needle] 32 gauge x 5/32 needle See Rx Instructions .ROUTE .MEDSUPPLY Qty: 1200 Patient Comments: USE DIRECTED Rx Instructions: As directed metoprolol succinate [Toprol XL] 25 mg tablet extended release 24 hr 25 mg PO DAILY Qty: 30 2RF (DME) FreeStyle Poli 3 Sensor Device See Rx Instructions .Route Qty: 1 11RF Rx Instructions: As directed cholecalciferol (vitamin D3) 125 mcg (5,000 unit) tablet 125 mcg PO DAILY Qty: 30 5RF insulin glargine U-300 conc [Toujeo Max U-300 SoloStar] 300 unit/mL (3 mL) insulin pen 20 unit SQ HS Qty: 6 0RF insulin lispro 100 unit/mL Insulin Pen 10 - 15 unit SQ AC potassium chloride [Klor-Con M20] 20 mEq Tablet,Er Particles/Crystals 40 meq PO DAILY 30 Days Qty: 60 0RF metoclopramide HCl 5 mg Tablet 5 mg PO ACHS PRN (Reason: Nausea And Vomiting) 30 Days Qty: 120 0RF pantoprazole 40 mg tablet,delayed release (DR/EC) 40 mg PO AM Patient Comments: TAKE 1 TABLET BY MOUTH ONCE DAILY ON AN EMPTY STOMACH Referrals Follow up/Referrals: Gretchen Angelo APRN [Primary Care Provider] - See instructions Activity Restrictions/Add. Instructions Additional Instructions/Restrictions: Today you were evaluated in the emergency department. Please follow-up with your PCP as scheduled. Return to the ED for worsening of condition. Instructions Patient Instructions: DI for Hyperglycemia -- Adult Print Language Print Language: Bengali Discharge ED Provider: Jaxson Reynaga General Adult HPI General Chief complaint: Hyper/Hypoglycemia Stated complaint: vomiting, high blood sugar Time Seen by Provider: 10/16/24 14:49 History of Present Illness HPI narrative: patient is a 23-year-old male PMHx diabetes with poor medication compliance and Hx of DKA who presents to the ED for complaints of abdominal pain and vomiting. Patient states his symptoms started yesterday. He has been out of his long- acting insulin since Sunday. Related Data Home Medications ?Medication ?Instructions ?Recorded ?Confirmed pantoprazole 40 mg tablet,delayed 40 mg PO AM 06/27/24 09/18/24 release pen needle, diabetic 32 gauge x #1,200 ea 07/02/24 09/18/2432 (BD Sydnie 2nd Gen Pen Needle) insulin lispro 100 unit/mL 10 - 15 unit SQ AC 08/10/24 09/18/24 subcutaneous pen Previous Rx's ?Medication ?Instructions ?Recorded insulin glargine U-300 conc 300 20 unit (0.0667 mL) SQ HS #6 mL 05/01/24 unit/mL (3 mL) subcutaneous pen (Toujeo Max U-300 SoloStar) metoclopramide HCl 5 mg tablet 5 mg PO ACHS PRN Nausea And 08/11/24 Vomiting 30 days #120 tabs potassium chloride 20 mEq 40 meq (2 x 20 mEq) PO DAILY 30 08/11/24 tablet,extended days #60 tabs release(part/cryst) (Klor-Con M) blood-glucose sensor (FreeStyle #1 ea 08/18/24 Poli 3 Sensor device) cholecalciferol (vitamin D3) 125 125 mcg PO DAILY #30 tabs 08/19/24 mcg (5,000 unit) tablet metoprolol succinate 25 mg 25 mg PO DAILY #30 tabs 09/04/24 tablet,extended release 24 hr (Toprol XL) Allergies Allergy/AdvReac Type Severity Reaction Status Date / Time No Known Allergies Allergy Verified 09/18/24 14:40 [facility] Disclaimer: The information contained in this section may have been updated after the patient was seen, as this information can be updated by other users. Medical History Vitamin D deficiency Vitamin B12 deficiency Non compliance with medical treatment Abdominal pain Abdominal pain Diabetes mellitus type 1 Hyperthyroidism Family History Other Cancer Diabetes Hypertension Social History Smoking Status: Current every day smoker tobacco type: e-cigarettes alcohol intake: never current occupational status: employed Travel in the last 8 weeks: None Have you lived/traveled outside [place] in past 30 days?: No Contact w/someone who lives/traveled outside US past 30 days?: No Exposure to someone with infectious disease in past 14 days?: No Do you have a fever (greater than 100.4 F or 38 C)?: No Have you tested positive for COVID-19: No Exposed to someone with COVID-19 in past 14 days?: No Do you have a sore throat?: No Do you have a cough?: No Do you have any weakness?: No Do you have any diarrhea?: No Are you experiencing any unusual bleeding?: No Do you have any muscle aches/pain?: No Do you have any abdominal pain?: No Are you experiencing loss of taste or smell?: No Other Medical History Have you received the Flu Vaccine for this season: No Have you received the Pneumonia Vaccine: No ROS Obtained: Yes Systems reviewed as appropriate & no additional complaints except as documented Physical Exam General General appearance: alert Comment: Cachexia, disheveled Head Head exam: atraumatic and normocephalic Eye Eye exam: Present normal appearance and PERRL ENT ENT exam: Present normal exam Neck Neck exam: Present normal inspection Chest Chest inspection: Present normal inspection and symmetric chest wall rise; Absent tenderness Respiratory Respiratory exam: Present normal lung sounds bilaterally Cardiovascular Cardiovascular exam: Present regular rate Abdominal Exam Abdominal exam: Present soft; Absent tenderness Extremities Exam Extremities exam: Present normal inspection and full ROM Back Exam Back exam: Present normal inspection and full ROM Neurological Exam Neurological exam: Present alert and oriented X3 Psychiatric Psychiatric exam: Present normal affect Skin Skin exam: Present warm and dry Medical Decision Making Medical Records Screening: Per USPSTF and CDC recommendations, given the prevalence of disease in our region, it is our hospital?s policy to screen for HIV and viral Hepatitis for all patients aged 18 and over and those with ongoing risk factors. Lui Inquiry Pt receiving controlled substance: No Vital Signs: 10/16/24 14:51 10/16/24 15:02 10/16/24 15:31 Temperature 98.6 F Temperature Source Temporal Artery Scan Pulse Rate 57 L 49 L Pulse Rate [Right] 85 Respiratory Rate 22 12 Blood Pressure 132/97 H 120/68 Blood Pressure [Right Arm] 132/97 H Blood Pressure Mean [Right Arm] 108 Blood Pressure Source [Right Arm] Automatic Cuff 02 Sat by Pulse Oximetry 98 97 98 Oxygen Delivery Method Room Air Room Air Room Air 10/16/24 16:00 10/16/24 16:30 10/16/24 17:00 Temperature Temperature Source Pulse Rate 61 Pulse Rate [Right] Respiratory Rate 14 15 12 Blood Pressure 123/74 135/79 138/84 Blood Pressure [Right Arm] Blood Pressure Mean [Right Arm] Blood Pressure Source [Right Arm] 02 Sat by Pulse Oximetry 97 99 98 Oxygen Delivery Method 10/16/24 17:30 10/16/24 18:00 10/16/24 18:30 Temperature Temperature Source Pulse Rate 59 L 47 L Pulse Rate [Right] Respiratory Rate 14 13 16 Blood Pressure 128/89 139/85 125/83 Blood Pressure [Right Arm] Blood Pressure Mean [Right Arm] Blood Pressure Source [Right Arm] 02 Sat by Pulse Oximetry 98 98 Oxygen Delivery Method Room Air Room Air Lab Data Lab Results 10/16/24 14:51: VBG pH 7.43 H, VBG pCO2 33.7 L, VBG pO2 74.9 H, VBG HCO3 21.9 L, VBG Total CO2 23.0, VBG O2 Saturation 95.5 H, VBG Base Excess -2.4, VBG Lactic Acid 3.8 H 10/16/24 14:53: POC Glucose 400 H* 10/16/24 14:54: WBC 14.0 H, RBC 5.18, Hgb 15.2, Hct 44.0, MCV 84.9, MCH 29.3, MCHC 34.5, RDW 11.9, Plt Count 358, MPV 8.6, Neut % (Auto) 83.2 H, Lymph % (Auto) 10.6, Bledsoe % (Auto) 4.7, Eos % (Auto) 0.2, Baso % (Auto) 0.4, Neut # (Auto) 11.7 H, Lymph # (Auto) 1.5, Bledsoe # (Auto) 0.7, Eos # (Auto) 0.0, Baso # (Auto) 0.1, Sodium 139, Potassium 4.0, Chloride 101, Carbon Dioxide 24, Anion Gap 18.0 H, BUN 19, Creatinine 0.80, Estimated GFR 119, Est GFR ( Amer) 144, Glucose 416 H*, Calcium 10.4 H, Total Bilirubin 0.8, AST 38, ALT 28, Alkaline Phosphatase 83, Total Protein 7.8 D, Albumin 5.1 H, Globulin 2.7, A lbumin/Globulin Ratio 1.9 H, Lipase 31, Acetone Level None detected 10/16/24 16:24: POC Glucose 287 H 10/16/24 17:15: Urine Color Yellow, Urine Appearance Clear, Urine pH 6.5, Ur Specific Marilla 1.020, Urine Protein Negative, Urine Glucose (UA) 3+, Urine Ketones 2+, Urine Blood Negative, Urine Nitrate Negative, Urine Bilirubin Negative, Urine Urobilinogen 0.2, Ur Leukocyte Esterase Negative, Urine RBC 3-5, Urine WBC Occasional, Ur Squamous Epith Cells Occasional 10/16/24 17:57: POC Glucose 235 H 10/16/24 14:54 10/16/24 14:54 Orders (Tests/Meds): ED MEDICATIONS Discontinued Medications Generic Name Dose Route Start Last Admin Trade Name Renoq PRN Reason Stop Dose Admin Droperidol 2.5 mg 10/16/24 18:10 10/16/24 18:13 Droperidol 5mg/2ml Vial IV 10/16/24 18:11 2.5 mg ONCE ONE Administration Sodium Chloride 1,000 mls @ 999 mls/hr 10/16/24 14:52 10/16/24 14:59 Sod Chlor 0.9% 1000ml Bag IV 10/16/24 15:52 999 mls/hr .Q1H1M ONE Administration Sodium Chloride 1,000 mls @ 999 mls/hr 10/16/24 15:30 10/16/24 15:47 Sod Chlor 0.9% 1000ml Bag IV 10/16/24 16:30 999 mls/hr .Q1H1M ONE Administration Ondansetron HCl 4 mg 10/16/24 14:52 10/16/24 14:59 Ondansetron 4mg/2ml Vial IV 10/16/24 14:53 4 mg ONCE ONE Administration Promethazine HCl 25 mg 10/16/24 15:42 10/16/24 15:47 Promethazine Hcl 25mg/Ml 1ml Vial IV 10/16/24 15:43 25 mg ONCE ONE Administration Sodium Chloride 25 ml 10/16/24 15:42 10/16/24 15:48 Sodium Chloride 0.9% 25ml Bag IV 10/16/24 15:43 25 ml ONCE ONE Administration ORDERS Category Date Time Status CXR --portable [XR chest portable] Stat Exams 10/16/24 14:51 Completed Acetone, Serum (Rapid) Stat Lab 10/16/24 14:54 Completed CBC w/Auto Diff [Complete Blood Count Auto Diff] Stat Lab 10/16/24 14:54 Completed CMP [Comprehensive Metabolic Panel] Stat Lab 10/16/24 14:54 Completed Lactic Acid Follow Up (RFLX 1) Stat Lab 10/16/24 19:16 Received Lipase Stat Lab 10/16/24 14:54 Completed POC Glucose,Bedside Routine Lab 10/16/24 14:53 Completed POC Glucose,Bedside Routine Lab 10/16/24 16:24 Completed POC Glucose,Bedside Routine Lab 10/16/24 17:57 Completed Urinalysis and Microscopic Stat Lab 10/16/24 17:15 Completed VBG [Venous Blood Gas] Stat RT 10/16/24 14:51 Completed Medical Decision Narrative: In summary, patient is a 23-year-old male PMHx diabetes with poor medication compliance and Hx of DKA who presents to the ED for complaints of abdominal pain and vomiting. Patient states his symptoms started yesterday. He has been out of his long-acting insulin since Sunday. Patient states he frequently runs out of his insulin and has difficulty obtaining it. He only wears a glucose sensor and is scheduled to get an insulin pump placed this coming Sunday. Patient is unable to tolerate PO at this time. Denies any additional complaints at this time. Uses marijuana. Denies fever, chills, body aches, headache, visual disturbances, chest pain, back pain, dysuria. Upon initial evaluation in the ED, patient is a chronically ill-appearing male, cachectic, disheveled. Actively vomiting, appears uncomfortable. Abdomen is soft and nontender. He is hemodynamically stable. Will proceed with hematologic labs, CXR, IV fluids and Zofran. Initial fingerstick at bedside 400. Reassessment after Zofran, patient continues actively vomiting. Promethazine 25 mg administered. CBC remarkable for leukocytosis, 14, stable H&H. VBG pH 7.43, pCO2 33.7, pO2 74.9, HCO3 21.9, lactate 3.8. CMP anion gap 18, glucose 416. Final read of the chest x-ray unremarkable for any acute findings. Repeat glucose 287. Patient continues vomiting, droperidol 2.5 administered. Upon reassessment, patient is still unable to p.o. Discussed we will admit to hospital medicine for intractable nausea and vomiting. Patient and mother agreeable to mission at this time. Critical Care Critical Care Time Critical Care Time: No
[2024-10-16] MEDS: 0.9 % SODIUM CHLORIDE 1000ML 1,000 ML 999 ML IV ×2 (14:59→15:47)
[2024-10-16] MEDS: ONDANSETRON 4MG/2ML VIAL 4 MG IV (14:59)
--- NOTE | 2024-10-16 14:59 | ECG_ITS ---
APPROVED REPORT Exam: Resting ECG HR:47 bpm ECG Measurements Heart Rate 47 AXES [place] 140 P -35 QRSd 93 QRS 70 QT 455 T 74 QTc 419 Conclusion SINUS BRADYCARDIA WITH MARKED SINUS ARRHYTHMIA Slight ST elevation in the inferior leads without reciprocal changes. No STEMI Electronically signed by : JOHN PAUL TORRES, 10/18/2024 03:22:18
[2024-10-16 15:05] LABS: VBG Base Excess -2.4 mmol/L (-2.4-2.3); VBG HCO3 21.9 mmol/L (23-30); VBG Oxygen Saturation 95.5 % (50-70); VBG PCO2 33.7 mmol/L (35-51); VBG PH 7.43 mmol/L (7.31-7.41); VBG PO2 74.9 mmol/L (28-40)
[2024-10-16 15:06] LABS: Lactate Venous 3.8 mmol/L (0.4-2.0)
[2024-10-16 15:14] LABS: Albumin Level 5.1 g/dl (3.5-5.0); Basophils # 0.1 K/mm3 (0-0.2); Basophils % 0.4 % (0.1-2.0); Chloride 101 mmol/L (98-107); Eosinophils % 0.2 % (0.1-12.0); Hemoglobin 15.2 g/dL (14.1-18.0); Lymphocytes # 1.5 K/mm3 (0.7-4.5); Lymphocytes % 10.6 % (10-50); Mean Corpuscular HGB Conc 34.5 g/dL (31.8-35.4); Mean Corpuscular Hemoglobin 29.3 pg (27.0-31.2); Mean Corpuscular Volume 84.9 fl (80-94); Mean Platelet Volume 8.6 fl (7.4-10.4); Monocytes # 0.7 K/mm3 (0.1-1.0); Monocytes % 4.7 % (1.7-9.3); Neutrophils # 11.7 K/mm3 (1.8-7.8); Neutrophils % 83.2 % (37.0-80.0); Platelet Count 358 K/mm3 (142-424); Red Blood Count 5.18 M/mm3 (4.60-6.20); Red Cell Distribution Width 11.9 % (11.5-17.5)
[2024-10-16 15:15] LABS: Sodium 139 mmol/L (136-145)
[2024-10-16 15:17] LABS: Alanine Aminotransferase 28 U/L (12-78); Albumin/Globulin Ratio 1.9 (1.1-1.8); Alkaline Phosphatase 83 U/L (38-126); Aspartate Amino Transferase 38 U/L (17-59); Bilirubin,Total 0.8 mg/dl (0.2-1.3); Blood Urea Nitrogen 19 mg/dl (9-20); Carbon Dioxide 24 mmol/L (22.0-30.0); Estimated Glomerular Filt Rate 119 ml/min (>60); GFR (African American) 144 ML/MIN (>60); Globulin 2.7 g/dL (1.3-3.2); Total Protein,Serum 7.8 g/dl (6.3-8.2)
[2024-10-16 15:18] LABS: Calcium 10.4 mg/dl (8.4-10.2); Lipase 31 U/L (23-300)
--- NOTE | 2024-10-16 15:18 | PC.NURSE ---
xray at bs
[2024-10-16 15:19] LABS: Glucose 416 mg/dl (74-100)
--- NOTE | 2024-10-16 15:20 | PC.NURSE ---
Dawn Pabon APRN notified of critical blood glucose
[2024-10-16 15:26] LABS: Acetone, Serum (Rapid) None Detected (None Detect)
[2024-10-16] MEDS: PROMETHAZINE HCL 25MG/ML 1ML VIAL 25 MG IV ×2 (15:47→22:19)
[2024-10-16] MEDS: SODIUM CHLORIDE 0.9% 25ML BAG 25 ML IV ×2 (15:48→22:22)
--- NOTE | 2024-10-16 16:25 | PC.NURSE ---
FSBS was 287
[2024-10-16 16:31] LABS: POC Glucose,Bedside 287 (70-110)
[2024-10-16 16:31] LABS: POC Glucose,Bedside 400 (70-110)
[2024-10-16 17:17] LABS: Microscopic, Urine URINE MICROSCOPIC (MICROSCOPIC)
[2024-10-16 17:23] LABS: Appearance,Urine CLEAR (Clear); Bilirubin,Urine Negative (Negative); Blood, Urine Negative (Negative); Color,Urine YELLOW (Yellow); Glucose,Urine (UA) 3+ (Negative); Ketones,Urine 2+ (Negative); Leukocyte Esterase,Urine Negative (Negative); Nitrate,Urine Negative (Negative); PH,Urine 6.5 (5.0-8.5); Protein,Urine Negative (Negative); Urobilinogen,Urine 0.2 EU/dl (0.2)
[2024-10-16 17:41] LABS: Squamous Epithelial Cell,Urine Occasional #/hpf (0-5); WBC,Urine Occasional #/hpf (0-3)
[2024-10-16 18:05] LABS: POC Glucose,Bedside 235 (70-110)
[2024-10-16] MEDS: droPERidol 5MG/2ML VIAL 2.5 MG IV (18:13)
[2024-10-16 19:07] LABS: Reflex Lactic Add Lactic Reflex
--- NOTE | 2024-10-16 19:16 | PC.NURSE ---
lab requested repeat lactic. lactic has been drawn and sent to lab at this time.
--- NOTE | 2024-10-16 19:29 | PC.NURSE ---
Pt resting in bed with eyes closed, mother at bedside reports patient was able to hold down a couple sips of water. Provider aware
[2024-10-16 19:32] LABS: Lactic Acid Follow Up (RFLX 1) 2.7 mmol/L (0.7-2.1)
[2024-10-16] MEDS: 0.9 % SODIUM CHLORIDE 1000ML 1,000 ML 125 ML IV (20:00)
--- NOTE | 2024-10-16 20:09 | PC.NURSE ---
attempt 1 for report, admission orders not available on the floor at this time. To call back when ready
--- NOTE | 2024-10-16 20:55 | PC.NURSE ---
Patient arrived to floor via stretcher from ED at 20:44.
--- NOTE | 2024-10-16 20:58 | EXP.HP ---
History of Present Illness *Admission Date: 10/16/24 *Reason for visit:: Vomiting *History of present illness: This is a 23-year-old male with past medical history of type 1 diabetes who presents the emergency department today with complaints of vomiting. Mother is at bedside and provides collateral and states that he has had difficulty getting his long-acting insulin filled at the pharmacies recently. States that he is been without his long-acting for approximately 2 days. Was able to get it filled today in [place] but had vomiting and abdominal pain episodes today. Has been working with endocrinology to try to get set up for insulin pump. Mom states that he has an appointment on Sunday in [place] to receive his pump and education on pump usage. Initial glucose in the emergency department for 16 without DKA. Patient had reduction in glucose after insulin administered. He underwent volume resuscitation but despite treatment modalities he persisted with vomiting in the emergency department. Given this he was admitted to the hospital service [facility] Disclaimer: The information contained in this section may have been updated after the patient was seen, as this information can be updated by other users. Medical History Vitamin D deficiency Vitamin B12 deficiency Non compliance with medical treatment Abdominal pain Abdominal pain Diabetes mellitus type 1 Hyperthyroidism Family History Other Cancer Diabetes Hypertension Social History Smoking Status: Current every day smoker tobacco type: e-cigarettes alcohol intake: never current occupational status: employed Travel in the last 8 weeks: None Other Medical History Have you received the Flu Vaccine for this season: No Have you received the Pneumonia Vaccine: No Review of Systems Review of Systems Review of systems:: pertinent systems reviewed and negative unless documented below Review of systems (narrative): Negative except for HPI Meds Home Medications and Allergies Home Medications ?Medication ?Instructions ?Recorded ?Confirmed ?Type pantoprazole 40 mg tablet,delayed 40 mg PO AM 06/27/24 10/16/24 History release pen needle, diabetic 32 gauge x #1,200 ea 07/02/24 10/16/24 History (BD Sydnie 2nd Gen Pen Needle) insulin lispro 100 unit/mL 10 - 15 unit SQ AC 08/10/24 10/16/24 History subcutaneous pen metoclopramide HCl 5 mg tablet 5 mg PO ACHS PRN Nausea And 08/11/24 10/16/24 Rx Vomiting 30 days #120 tabs potassium chloride 20 mEq 40 meq (2 x 20 mEq) PO DAILY 30 08/11/24 10/16/24 Rx tablet,extended days #60 tabs release(part/cryst) (Klor-Con M) blood-glucose sensor (FreeStyle #1 ea 08/18/24 10/16/24 Rx Poli 3 Sensor device) cholecalciferol (vitamin D3) 125 125 mcg PO DAILY #30 tabs 08/19/24 10/16/24 Rx mcg (5,000 unit) tablet metoprolol succinate 25 mg 25 mg PO DAILY #30 tabs 09/04/24 10/16/24 Rx tablet,extended release 24 hr (Toprol XL) insulin glargine U-300 conc 300 30 unit SQ HS 10/17/24 10/17/24 History unit/mL (3 mL) subcutaneous pen (Toujeo Max U-300 SoloStar) New Prescriptions to Start Prescriptions: Allergies Allergy/AdvReac Type Severity Reaction Status Date / Time No Known Allergies Allergy Verified 09/18/24 14:40 Exam Data for Last 24 hours Vital signs and Labs for Last 24 Hours: Temp Pulse Resp BP Pulse Ox O2 Del Method 98.1 F 53 L 16 124/80 98 Room Air 10/16/24 20:20 10/16/24 20:20 10/16/24 20:20 10/16/24 20:20 10/16/24 18:30 10/16/24 20:20 Laboratory Results - last 24 hr 10/16/24 14:51: VBG pH 7.43 H, VBG pCO2 33.7 L, VBG pO2 74.9 H, VBG HCO3 21.9 L, VBG Total CO2 23.0, VBG O2 Saturation 95.5 H, VBG Base Excess -2.4, VBG Lactic Acid 3.8 H 10/16/24 14:53: POC Glucose 400 H* 10/16/24 14:54: WBC 14.0 H, RBC 5.18, Hgb 15.2, Hct 44.0, MCV 84.9, MCH 29.3, MCHC 34.5, RDW 11.9, Plt Count 358, MPV 8.6, Neut % (Auto) 83.2 H, Lymph % (Auto) 10.6, [place] % (Auto) 4.7, Eos % (Auto) 0.2, Baso % (Auto) 0.4, Neut # (Auto) 11.7 H, Lymph # (Auto) 1.5, [place] # (Auto) 0.7, Eos # (Auto) 0.0, Baso # (Auto) 0.1, Sodium 139, Potassium 4.0, Chloride 101, Carbon Dioxide 24, Anion Gap 18.0 H, BUN 19, Creatinine 0.80, Estimated GFR 119, Est GFR ( Amer) 144, Glucose 416 H*, Calcium 10.4 H, Total Bilirubin 0.8, AST 38, ALT 28, Alkaline Phosphatase 83, Total Protein 7.8 D, Albumin 5.1 H, Globulin 2.7, Albumin/Globulin Ratio 1.9 H, Lipase 31, Acetone Level None detected 10/16/24 16:24: POC Glucose 287 H 10/16/24 17:15: Urine Color Yellow, Urine Appearance Clear, Urine pH 6.5, Ur Specific [place] 1.020, Urine Protein Negative, Urine Glucose (UA) 3+, Urine Ketones 2+, Urine Blood Negative, Urine Nitrate Negative, Urine Bilirubin Negative, Urine Urobilinogen 0.2, Ur Leukocyte Esterase Negative, Urine RBC 3-5, Urine WBC Occasional, Ur Squamous Epith Cells Occasional 10/16/24 17:57: POC Glucose 235 H 10/16/24 19:16: Lactate 2.7 H I & O for Last 24 hours: Intake & Output 10/13/24 10/14/24 10/15/24 10/16/24 23:59 23:59 23:59 23:59 Weight 54.431 kg Constitutional Constitutional: no acute distress *Routine HEENT Exam Head: Present normocephalic Eye: Present EOMI and PERRL ENT: Present mucous membranes moist *Routine Neck Exam Neck: Present supple; Absent lymphadenopathy *Routine Respiratory Exam Respiratory: Present CTA bilaterally *Routine Cardiovascular Exam Cardiovascular: Present RRR *Routine Abdominal Exam Abdominal: Present soft and normoactive bowel sounds; Absent tenderness *Routine Rectal Exam Rectal:: deferred *Routine Genitalia Exam Genitalia:: deferred *Routine Extremities Exam Extremities: Absent cyanosis, clubbing or edema *Routine Skin Exam Skin: Present warm; Absent rash *Routine Neurological Exam Neurological: Present alert and oriented X3 Assessment and Plan *Assessment and plan (1) Nausea and vomiting in adult: Status: Acute Category: Medical Code(s): R11.2 - Nausea with vomiting, unspecified (2) Tachycardia: Status: Acute Category: Medical Code(s): R00.0 - Tachycardia, unspecified (3) Diabetes mellitus type 1: Status: Acute Qualifiers: Diabetes mellitus complication status: with other specified complication Qualified Code(s): E10.69 - Type 1 diabetes mellitus with other specified complication Category: Medical Code(s): E10.9 - Type 1 diabetes mellitus without complications Plan #Type 1 diabetes with hyperglycemia without DKA #Intractable nausea vomiting Initial glucose of 400 on chemistry with anion gap of 18. VBG without acidosis. Glucose improved after insulin administration Emergency Department. Patient underwent volume resuscitation but despite correction of glucose, patient persisted with vomiting in the emergency department. Continue antiemetics. Continue long-acting and sliding scale insulin Continue IV fluid administration Lactic acid of 2.7, repeat pending
[2024-10-16] MEDS: INSULIN GLARGINE 100 UNITS/ML 3ML FLEXPEN 20 UNIT SUBCUT (21:00)
[2024-10-16] MEDS: humaLOG 100 UNITS/ML 10ML VIAL (SSI) SUBCUT (21:00)
[2024-10-16 21:17] LABS: Reflex Lactic (2 hrs) Add Lactic Reflex
[2024-10-16 21:45] LABS: Lactic Acid Follow up (RFLX 2) 2.1 mmol/L (0.7-2.1)
[2024-10-16 22:33] LABS: POC Glucose,Bedside 219 (70-110)
[2024-10-17] VITALS (7 sets, daily range): BP systolic 104–131; BP diastolic 65–75; PULSE 50–90; RESP 16; TEMP 36.6–37.6; O2SAT 96–100; BMI 19.9
[2024-10-17] MEDS: 0.9 % SODIUM CHLORIDE 1000ML 1,000 ML 125 ML IV ×3 (04:00→20:00)
--- NOTE | 2024-10-17 05:24 | INFXCTL.NOTE ---
New Admit. V/s, ox4. Pt is non compliant with most things. Pt will not answer question, nurse has to repeat instructions or steps a few times before pt is compliant. Blood glucose monitored. Pt tolerating fluids. Pt c/o nausea, treated per MAR. Plan of care ongoing.
[2024-10-17 05:50] LABS: POC Glucose,Bedside 249 (70-110)
[2024-10-17] MEDS: humaLOG 100 UNITS/ML 10ML VIAL (SSI) SUBCUT ×3 (06:11→22:42)
[2024-10-17 06:55] LABS: Basophils % 0.1 % (0.1-2.0); Eosinophils % 0.1 % (0.1-12.0); Hematocrit 39.2 % (42.0-52.0); Mean Corpuscular HGB Conc 33.4 g/dL (31.8-35.4); Mean Corpuscular Hemoglobin 29.1 pg (27.0-31.2); Mean Corpuscular Volume 87.1 fl (80-94); Mean Platelet Volume 10.3 fl (7.4-10.4); Monocytes # 0.8 K/mm3 (0.1-1.0); Monocytes % 4.6 % (1.7-9.3); Neutrophils # 15.2 K/mm3 (1.8-7.8); Neutrophils % 88.7 % (37.0-80.0); Platelet Count 204 K/mm3 (142-424); Red Cell Distribution Width 12.1 % (11.5-17.5); White Blood Count 17.1 K/mm3 (4.8-10.8)
[2024-10-17 07:01] LABS: MANUAL DIFFERENTIAL MANUAL DIFFERENTIAL (MANUAL DIFF)
[2024-10-17 07:13] LABS: Chloride 105 mmol/L (98-107); Potassium 4.1 mmoL/L (3.5-5.1); Sodium 141 mmol/L (136-145)
[2024-10-17 07:16] LABS: Anion Gap 18.1 mEq/L (5-15); Blood Urea Nitrogen 18 mg/dl (9-20); Carbon Dioxide 22 mmol/L (22.0-30.0); Creatinine Clearance Estimated 129 mL/min (50-200); Estimated Glomerular Filt Rate 139 ml/min (>60); GFR (African American) 168 ML/MIN (>60); Glucose 270 mg/dl (74-100); Magnesium 1.4 mg/dl (1.6-2.3)
--- NOTE | 2024-10-17 08:45 | HMH.PHAINT1 ---
Pharmacy Intervention Comments: home medication list verified using list from outpatient pharmacy
[2024-10-17] MEDS: CEFTRIAXONE SODIUM 1 GM in 0.9 % SODIUM CHLORIDE 50 ML IV (09:03)
[2024-10-17 09:13] LABS: Lymphocytes % 7 % (10-50); Monocytes % 2 % (2-9); Neutrophils % 91 % (42-76); Platelet Estimate Normal; RBC Morphology Normal; Total Cells Counted 100
[2024-10-17 09:22] LABS: Hemoglobin 13.1 g/dL (14.1-18.0)
[2024-10-17 11:21] LABS: POC Glucose,Bedside 254 (70-110)
[2024-10-17] MEDS: MAGNESIUM SULFATE IN WATER 2 GM/50 ML PIGGYBACK IV ×3 (12:10→13:55)
--- NOTE | 2024-10-17 13:34 | EXP.ACUTE.PN ---
Subjective *Date: 10/17/24 *Time: 19:40 Interval history: Showing little improvement today. Vitals stable. Tolerating basal bolus regimen. Advanced diet as tolerated. Tolerating clear liquids today. Stable on room air. Medical Exam Vital signs and Labs for Last 24 Hours: Vital Signs Temp Pulse Pulse Resp BP BP Pulse Ox 10/17/24 13:00 10/17/24 11:00 10/17/24 09:00 10/17/24 08:00 96 10/17/24 08:00 97.9 F 68 16 114/73 96 10/17/24 06:26 10/17/24 04:57 10/17/24 04:00 98.9 F 60 16 124/65 98 10/17/24 04:00 60 10/17/24 03:00 10/17/24 01:00 10/17/24 00:00 99.6 F 56 L 16 123/65 99 10/17/24 00:00 50 L 10/16/24 23:00 10/16/24 21:00 10/16/24 20:55 98.9 F 62 16 129/83 98 10/16/24 20:20 98.1 F 53 L 16 124/80 10/16/24 20:10 10/16/24 18:30 47 L 16 125/83 98 10/16/24 18:00 59 L 13 139/85 98 10/16/24 17:30 14 128/89 10/16/24 17:00 61 12 138/84 98 10/16/24 16:30 15 135/79 99 10/16/24 16:00 14 123/74 97 10/16/24 15:31 49 L 12 120/68 98 10/16/24 15:02 57 L 132/97 H 97 10/16/24 14:51 98.6 F 85 22 132/97 H 98 O2 Del Method 10/17/24 13:00 Room Air 10/17/24 11:00 Room Air 10/17/24 09:00 Room Air 10/17/24 08:00 Room Air 10/17/24 08:00 10/17/24 06:26 Room Air 10/17/24 04:57 Room Air 10/17/24 04:00 Room Air 10/17/24 04:00 10/17/24 03:00 Room Air 10/17/24 01:00 Room Air 10/17/24 00:00 Room Air 10/17/24 00:00 10/16/24 23:00 Room Air 10/16/24 21:00 Room Air 10/16/24 20:55 Room Air 10/16/24 20:20 Room Air 10/16/24 20:10 Room Air 10/16/24 18:30 Room Air 10/16/24 18:00 Room Air 10/16/24 17:30 10/16/24 17:00 10/16/24 16:30 10/16/24 16:00 10/16/24 15:31 Room Air 10/16/24 15:02 Room Air 10/16/24 14:51 Room Air Intake and Output 10/16/24 10/17/24 10/17/24 23:59 07:59 15:59 Intake Total 0 / 0 Output Total 0 / 0 Balance 0 / 0 0 / 0 Intake: Intake, Oral Amount 0 / 0 Output: Output, Urine Amount 0 / 0 Other: Number of Unmeasured Voids 1 Weight 56.155 kg 56.155 kg 56.155 kg Patient Weight 10/17/24 23:59 Weight 56.155 kg Laboratory Results - last 24 hr 10/16/24 14:51: VBG pH 7.43 H, VBG pCO2 33.7 L, VBG pO2 74.9 H, VBG HCO3 21.9 L, VBG Total CO2 23.0, VBG O2 Saturation 95.5 H, VBG Base Excess -2.4, VBG Lactic Acid 3.8 H 10/16/24 14:53: POC Glucose 400 H* 10/16/24 14:54: WBC 14.0 H, RBC 5.18, Hgb 15.2, Hct 44.0, MCV 84.9, MCH 29.3, MCHC 34.5, RDW 11.9, Plt Count 358, MPV 8.6, Neut % (Auto) 83.2 H, Lymph % (Auto) 10.6, [place] % (Auto) 4.7, Eos % (Auto) 0.2, Baso % (Auto) 0.4, Neut # (Auto) 11.7 H, Lymph # (Auto) 1.5, [place] # (Auto) 0.7, Eos # (Auto) 0.0, Baso # (Auto) 0.1, Sodium 139, Potassium 4.0, Chloride 101, Carbon Dioxide 24, Anion Gap 18.0 H, BUN 19, Creatinine 0.80, Estimated GFR 119, Est GFR ( Amer) 144, Glucose 416 H*, Calcium 10.4 H, Total Bilirubin 0.8, AST 38, ALT 28, Alkaline Phosphatase 83, Total Protein 7.8 D, Albumin 5.1 H, Globulin 2.7, Albumin/Globulin Ratio 1.9 H, Lipase 31, Acetone Level None detected 10/16/24 16:24: POC Glucose 287 H 10/16/24 17:15: Urine Color Yellow, Urine Appearance Clear, Urine pH 6.5, Ur Specific [place] 1.020, Urine Protein Negative, Urine Glucose (UA) 3+, Urine Ketones 2+, Urine Blood Negative, Urine Nitrate Negative, Urine Bilirubin Negative, Urine Urobilinogen 0.2, Ur Leukocyte Esterase Negative, Urine RBC 3-5, Urine WBC Occasional, Ur Squamous Epith Cells Occasional 10/16/24 17:57: POC Glucose 235 H 10/16/24 19:16: Lactate 2.7 H 10/16/24 21:29: Lactate 2.1 10/16/24 22:18: POC Glucose 219 H 10/17/24 05:33: WBC 17.1 H, RBC 4.50 L, Hgb 13.1 L D, Hct 39.2 L, MCV 87.1, MCH 29.1, MCHC 33.4, RDW 12.1, Plt Count 204 D, MPV 10.3, Neut % (Auto) 88.7 H, Lymph % (Auto) 6.0 L, [place] % (Auto) 4.6, Eos % (Auto) 0.1, Baso % (Auto) 0.1, Neut # (Auto) 15.2 H, Lymph # (Auto) 1.0, [place] # (Auto) 0.8, Eos # (Auto) 0.0, Baso # (Auto) 0.0, Total Counted 100, Neutrophils % (Manual) 91 H, Lymphocytes % (Manual) 7 L, Monocytes % (Manual) 2, Platelet Estimate Normal, RBC Morphology Normal, Sodium 141, Potassium 4.1, Chloride 105, Carbon Dioxide 22, Anion Gap 18.1 H, BUN 18, Creatinine 0.70, Estimated Creat Clear 129, Estimated GFR 139, Est GFR ( Amer) 168, Glucose 270 H D, Calcium 9.0, Magnesium 1.4 L 10/17/24 05:39: POC Glucose 249 H 10/17/24 11:11: POC Glucose 254 H I & O for Labs for Last 24 Hours: Intake & Output 10/14/24 10/15/24 10/16/24 10/17/24 23:59 23:59 23:59 23:59 Intake Total 0 / 0 Output Total 0 / 0 Balance 0 / 0 0 / 0 Weight 56.155 kg 56.155 kg Constitutional: Present no acute distress, thin and chronically ill appearing Head: Present atraumatic and normocephalic ENT: Present normal exam Neck: Present normal inspection Respiratory: Present normal respiratory effort; Absent rhonchi, wheezes or crackles Cardiac: Present Reg Rate and Rhythm GI: Present soft and normal bowel sounds; Absent distention, tenderness, guarding or rebound Extremities: Present normal inspection and full ROM Skin: Present intact; Absent erythema Neuro: Present Grossly Intact, alert, awake, oriented x 3 and moves all extremities Assessment and Plan *Assessment and plan (1) Nausea and vomiting in adult: Status: Acute Category: Medical Code(s): R11.2 - Nausea with vomiting, unspecified (2) Diabetic gastroparesis: Status: Acute Category: Medical Code(s): E11.43 - Type 2 diabetes mellitus with diabetic autonomic (poly)neuropathy; K31.84 - Gastroparesis (3) Non compliance with medical treatment: Status: Inactive Category: Medical Code(s): Z91.199 - Patient's noncompliance with other medical treatment and regimen due to unspecified reason (4) Diabetes mellitus type 1: Status: Acute Qualifiers: Diabetes mellitus complication status: with other specified complication Qualified Code(s): E10.69 - Type 1 diabetes mellitus with other specified complication Category: Medical Code(s): E10.9 - Type 1 diabetes mellitus without complications Plan Barry Joe is a 23-year-old male with a medical history significant for type 1 diabetes, medication nonadherence, gastroparesis, 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 Admitted for inability to tolerate p.o. intake did labs remained stable. Advance diet today. Problems addressed as follows: # Intractable nausea and vomiting #History of gastroparesis #History of THC use ? Presented with worsening nausea/vomiting and weakness; history of medication nonadherence, poor appetite. A1c 8.3 in August. Repeat pending ? Anion gap normal this morning on labs. Potassium 4.1, sodium 141, glucose 270. Kidney function normal with BUN 18, creatinine 0.7. Magnesium low. Replacing per protocol. -Repeat CBC, CMP, magnesium ordered for the morning -White count elevated at 17. Will administer 1 g ceftriaxone. No focal sign of infection. Suspect stress reaction. -Increase basal insulin to 25 units tonight. Continue sliding scale with fingersticks ACHS. -Resume home Reglan 5 mg ACHS. - Protonix 40 mg for GI prophylaxis. ? Diabetic diet. Tobacco abuse -Nicotine patch as needed -Tobacco cessation counseling given Full code Diabetic diet
--- NOTE | 2024-10-17 16:18 | PC.NURSE ---
pt alert and oriented. lung sounds cta. abdomen soft, nontender, bowel sounds active. pt walking to bathroom to void. pt's mom has been at bedside t/o the day. pt has slept most of this shift. pt did attempt to take ice chips and stated that they did cause his stomach to feel uneasy. pt has not asked for prn medications this shift. pt's call light w/i reach.
[2024-10-17 16:52] LABS: POC Glucose,Bedside 162 (70-110)
[2024-10-17] MEDS: PROMETHAZINE HCL 25MG/ML 1ML VIAL 25 MG IV (20:00)
[2024-10-17 22:39] LABS: POC Glucose,Bedside 277 (70-110)
[2024-10-17] MEDS: INSULIN GLARGINE 100 UNITS/ML 3ML FLEXPEN 25 UNIT SUBCUT (22:42)
[2024-10-17] MEDS: HALOPERIDOL LACTATE 5 MG/ML VIAL 1 MG IV (23:48)
[2024-10-18] VITALS (8 sets, daily range): BP systolic 99–127; BP diastolic 49–88; PULSE 50–90; RESP 16; TEMP 36.6–36.8; O2SAT 96–100; BMI 19.1
--- NOTE | 2024-10-18 04:02 | PC.NURSE ---
Pt. is alert and orientated x 4. Pt. ia diabetic patient that was admitted for intractable nausea and vomiting., hyperglycemia and abdominal pain. Pt. is on room air. Pt. on IVF. Pt. with continuous wretching with several small to moderate amounts of emesis. Pt. getting IV meds for nausea with minimal effects per pt. Pt. is NPO and unable to keep anything down. Pt. fell asleep after Haldol IV for nausea. VSS. Personal items and call bae in reach.
[2024-10-18] MEDS: 0.9 % SODIUM CHLORIDE 1000ML 1,000 ML 125 ML IV ×3 (05:52→21:11)
[2024-10-18 06:01] LABS: POC Glucose,Bedside 219 (70-110)
[2024-10-18] MEDS: humaLOG 100 UNITS/ML 10ML VIAL (SSI) SUBCUT (06:01)
[2024-10-18] MEDS: PANTOPRAZOLE 40MG TABLET 40 MG PO (06:54)
[2024-10-18 07:22] LABS: Basophils % 0.2 % (0.1-2.0); Hematocrit 42.3 % (42.0-52.0); Hemoglobin 14.2 g/dL (14.1-18.0); Lymphocytes # 1.4 K/mm3 (0.7-4.5); Lymphocytes % 7.7 % (10-50); Mean Corpuscular HGB Conc 33.6 g/dL (31.8-35.4); Mean Corpuscular Hemoglobin 29.8 pg (27.0-31.2); Mean Corpuscular Volume 88.7 fl (80-94); Mean Platelet Volume 8.5 fl (7.4-10.4); Monocytes # 1.1 K/mm3 (0.1-1.0); Monocytes % 5.9 % (1.7-9.3); Neutrophils # 15.4 K/mm3 (1.8-7.8); Neutrophils % 85.6 % (37.0-80.0); Platelet Count 320 K/mm3 (142-424); Red Blood Count 4.77 M/mm3 (4.60-6.20); Red Cell Distribution Width 12.2 % (11.5-17.5)
[2024-10-18 07:23] LABS: Albumin Level 4.7 g/dl (3.5-5.0); Chloride 108 mmol/L (98-107); Potassium 3.7 mmoL/L (3.5-5.1); Sodium 143 mmol/L (136-145)
[2024-10-18 07:24] LABS: MANUAL DIFFERENTIAL MANUAL DIFFERENTIAL (MANUAL DIFF)
[2024-10-18 07:25] LABS: Blood Urea Nitrogen 18 mg/dl (9-20); Creatinine Clearance Estimated 124 mL/min (50-200); Estimated Glomerular Filt Rate 139 ml/min (>60); GFR (African American) 168 ML/MIN (>60)
[2024-10-18 07:26] LABS: Alanine Aminotransferase 30 U/L (12-78); Albumin/Globulin Ratio 2.2 (1.1-1.8); Alkaline Phosphatase 55 U/L (38-126); Anion Gap 18.7 mEq/L (5-15); Aspartate Amino Transferase 36 U/L (17-59); Bilirubin,Total 0.6 mg/dl (0.2-1.3); Calcium 8.5 mg/dl (8.4-10.2); Carbon Dioxide 20 mmol/L (22.0-30.0); Globulin 2.1 g/dL (1.3-3.2); Glucose 192 mg/dl (74-100); Magnesium 2.1 mg/dl (1.6-2.3); Total Protein,Serum 6.8 g/dl (6.3-8.2)
[2024-10-18 07:55] LABS: Lymphocytes % 8 % (10-50); Monocytes % 4 % (2-9); Neutrophils % 88 % (42-76); Platelet Estimate Normal; RBC Morphology Normal; Total Cells Counted 100
[2024-10-18 08:06] LABS: Hemoglobin A1C 7.7 % (4.0-6.0)
[2024-10-18] MEDS: CEFTRIAXONE SODIUM 1 GM in 0.9 % SODIUM CHLORIDE 50 ML IV (08:41)
[2024-10-18 10:06] LABS: POC Glucose,Bedside 116 (70-110)
--- NOTE | 2024-10-18 11:22 | P.PN_ITS ---
Subjective *Date: 10/18/24 *Time: 13:38 Interval history: Showing little improvement today. Vitals stable. Tolerating basal bolus regimen. Advanced diet as tolerated. Tolerating clear liquids today. Stable on room air. Medical Exam Vital signs and Labs for Last 24 Hours: Vital Signs Temp Pulse Pulse Resp BP Pulse Ox O2 Del Method 10/18/24 10:07 Room Air 10/18/24 08:48 Room Air 10/18/24 08:00 60 10/18/24 08:00 Room Air 10/18/24 07:45 98.2 F 52 L 16 99/49 L 96 Room Air 10/18/24 06:59 Room Air 10/18/24 05:00 Room Air 10/18/24 04:00 90 10/18/24 04:00 98.3 F 69 16 127/88 100 Room Air 10/18/24 03:00 Room Air 10/18/24 01:00 Room Air 10/18/24 00:00 50 L 10/18/24 00:00 98.3 F 87 16 114/70 99 Room Air 10/17/24 23:00 Room Air 10/17/24 21:00 Room Air 10/17/24 20:00 98.2 F 73 16 131/75 100 Room Air 10/17/24 20:00 Room Air 10/17/24 20:00 50 L 10/17/24 19:53 98.2 F 73 16 131/75 100 Room Air 10/17/24 17:00 Room Air 10/17/24 16:00 98.4 F 79 16 104/73 L 100 10/17/24 16:00 60 10/17/24 14:52 Room Air 10/17/24 13:00 Room Air 10/17/24 12:00 60 10/17/24 12:00 98.1 F 90 16 112/73 96 Intake and Output 10/17/24 10/18/24 10/18/24 23:59 07:59 15:59 Intake Total 1431 / 1431 Output Total 0 / 0 Balance 1431 / 1431 Intake: Intake, Oral Amount 0 / 0 Intake, Total IV Amount 1431 / 1431 0.9 % Sodium Chloride 1000ML 1, 1231 / 1231 000 ml @ 125 mls/hr IV .Q8H [facility] Rx#:[id number] Ceftriaxone Sodium 1 gm In 0.9 50 / 50 % Sodium Chloride 50 ml @ 100 mls/hr IV Q24H [facility] Rx#:[id number] Magnesium Sulfate in Water 2 gm 150 / 150 In 50 ml @ 50 mls/hr IV Q1H [facility] Rx#:[id number] Output: Output, Urine Amount 0 / 0 Other: Number of Unmeasured Voids 2 Weight 53.779 kg Patient Weight 10/18/24 23:59 Weight 53.779 kg Laboratory Results - last 24 hr 10/17/24 16:43: POC Glucose 162 H 10/17/24 22:25: POC Glucose 277 H 10/18/24 05:49: POC Glucose 219 H 10/18/24 07:05: WBC 18.0 H, RBC 4.77, Hgb 14.2, Hct 42.3, MCV 88.7, MCH 29.8, MCHC 33.6, RDW 12.2, Plt Count 320 D, MPV 8.5, Neut % (Auto) 85.6 H, Lymph % (Auto) 7.7 L, [place] % (Auto) 5.9, Eos % (Auto) 0.0 L, Baso % (Auto) 0.2, Neut # (Auto) 15.4 H, Lymph # (Auto) 1.4, [place] # (Auto) 1.1 H, Eos # (Auto) 0.0, Baso # (Auto) 0.0, Total Counted 100, Neutrophils % (Manual) 88 H, Lymphocytes % (Manual) 8 L, Monocytes % (Manual) 4, Platelet Estimate Normal, RBC Morphology Normal, Sodium 143, Potassium 3.7, Chloride 108 H, Carbon Dioxide 20 L, Anion Gap 18.7 H, BUN 18, Creatinine 0.70, Estimated Creat Clear 124, Estimated GFR 139, Est GFR ( Amer) 168, Glucose 192 H, Hemoglobin A1c 7.7 H, Calcium 8.5, Magnesium 2.1 D, Total Bilirubin 0.6, AST 36, ALT 30, Alkaline Phosphatase 55, Total Protein 6.8, Albumin 4.7, Globulin 2.1, Albumin/Globulin Ratio 2.2 H 10/18/24 09:59: POC Glucose 116 H I & O for Labs for Last 24 Hours: Intake & Output 10/15/24 10/16/24 10/17/24 10/18/24 23:59 23:59 23:59 23:59 Intake Total 0 / 0 1431 / 1431 Output Total 0 / 0 0 / 0 Balance 0 / 0 0 / 1431 1431 / 1431 Weight 56.155 kg 56.155 kg 53.779 kg Constitutional: Present no acute distress, thin and chronically ill appearing Head: Present atraumatic and normocephalic ENT: Present normal exam Neck: Present normal inspection Respiratory: Present normal respiratory effort; Absent rhonchi, wheezes or crackles Cardiac: Present Reg Rate and Rhythm GI: Present soft and normal bowel sounds; Absent distention, tenderness, guarding or rebound Extremities: Present normal inspection and full ROM Skin: Present intact; Absent erythema Neuro: Present Grossly Intact, alert, awake, oriented x 3 and moves all extremities Assessment and Plan *Assessment and plan (1) Nausea and vomiting in adult: Status: Acute Category: Medical Code(s): R11.2 - Nausea with vomiting, unspecified (2) Diabetic gastroparesis: Status: Acute Category: Medical Code(s): E11.43 - Type 2 diabetes mellitus with diabetic autonomic (poly)neuropathy; K31.84 - Gastroparesis (3) Diabetes mellitus type 1: Status: Acute Qualifiers: Diabetes mellitus complication status: with other specified complication Qualified Code(s): E10.69 - Type 1 diabetes mellitus with other specified complication Category: Medical Code(s): E10.9 - Type 1 diabetes mellitus without complications Plan Barry Joe is a 23-year-old male with a medical history significant for type 1 diabetes, medication nonadherence, gastroparesis, 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 Admitted for inability to tolerate p.o. intake did labs remained stable. Advance diet as tolerated. Still having vomiting this morning. Will monitor overnight. Anticipate discharge in the next day or 2. Problems addressed as follows: # Intractable nausea and vomiting #History of gastroparesis #History of THC use ? Presented with worsening nausea/vomiting and weakness; history of medication nonadherence, poor appetite. A1c 8.3 in August. Repeat 7.7 this admission. ? Anion gap slightly elevated this morning. Suspect secondary to nausea and vomiting. White count remains elevated, still suspect reactive. No change with initiation of ceftriaxone. Continue empirically for another 24 hours. -Potassium 3.7, magnesium 2.1. Kidney function normal with BUN 18, creatinine 0.7. Repeat CBC, CMP, magnesium ordered for the morning -Increase basal insulin to 30 units tonight. Continue sliding scale with fingersticks ACHS, advance to medium intensity sliding scale -Resume home Reglan 5 mg ACHS. - Protonix 40 mg for GI prophylaxis. ? Diabetic diet. Tobacco abuse -Nicotine patch as needed -Tobacco cessation counseling given Full code Diabetic diet
[2024-10-18] MEDS: METOCLOPRAMIDE 5MG TABLET 5 MG PO (14:36)
[2024-10-18] MEDS: PROMETHAZINE HCL 25MG/ML 1ML VIAL 25 MG IV ×2 (15:06→23:14)
--- NOTE | 2024-10-18 15:09 | PC.NURSE ---
Aox 4, up ad jennifer, 20g R FA NS@ 125, emesis times one, fsbg achs, npo, has slept most of the day.
[2024-10-18 20:09] LABS: POC Glucose,Bedside 183 (70-110)
[2024-10-18] MEDS: INSULIN GLARGINE 100 UNITS/ML 3ML FLEXPEN 30 UNIT SUBCUT (21:11)
[2024-10-18] MEDS: 0.9 % SODIUM CHLORIDE 25 ML 100 ML IV (23:14)
[2024-10-19] VITALS: BP 149/84; PULSE 65; PULSE 80; RESP 16; TEMP 36.9; O2SAT 100
[2024-10-19] MEDS: PROMETHAZINE HCL 25MG/ML 1ML VIAL 25 MG IV ×2 (01:55→12:25)
[2024-10-19] MEDS: 0.9 % SODIUM CHLORIDE 25 ML 100 ML IV (02:29)
[2024-10-19 02:46] LABS: POC Glucose,Bedside 133 (70-110)
[2024-10-19 04:00] VITALS: BP 130/78; PULSE 70; PULSE 80; RESP 16; TEMP 37.1; O2SAT 97; BMI 19.1
--- NOTE | 2024-10-19 04:57 | PC.NURSE ---
Pt. is alert and orientated x 4. Pt. is on room air. Pt. c/o abdominal pain and has had several bouts, of wretching and vomiting. Pt. tried some ice chips and was vomiting after the ice chips. Pt. had 2 IV doses of Phenergan for nausea and vomiting. There was little relief of the nausea and vomiting. Pt. did sleep in between the vomiting episodes. Pt. is a diabetic. Blood sugar last night was elevated. gave the Lantus dose of insulin but held the Humalog coverage due to decreased PO intake and vomiting. IVF infusing. at 125 ml/hr. Pt's mother at bedside. Personal items and call bae in reach.
[2024-10-19] MEDS: 0.9 % SODIUM CHLORIDE 1000ML 1,000 ML 125 ML IV ×3 (05:58→20:31)
[2024-10-19 06:29] LABS: POC Glucose,Bedside 97 (70-110)
[2024-10-19 07:53] LABS: Basophils % 0.3 % (0.1-2.0); Hematocrit 37.6 % (42.0-52.0); Lymphocytes # 1.7 K/mm3 (0.7-4.5); Lymphocytes % 14.9 % (10-50); Mean Corpuscular HGB Conc 34.6 g/dL (31.8-35.4); Mean Corpuscular Hemoglobin 29.9 pg (27.0-31.2); Mean Corpuscular Volume 86.4 fl (80-94); Mean Platelet Volume 8.6 fl (7.4-10.4); Monocytes % 9.1 % (1.7-9.3); Neutrophils # 8.4 K/mm3 (1.8-7.8); Neutrophils % 75.2 % (37.0-80.0); Platelet Count 301 K/mm3 (142-424); Red Blood Count 4.35 M/mm3 (4.60-6.20); Red Cell Distribution Width 11.9 % (11.5-17.5); White Blood Count 11.1 K/mm3 (4.8-10.8)
[2024-10-19 08:00] VITALS: BP 123/69; PULSE 50; PULSE 66; RESP 16; TEMP 37.1; O2SAT 97
[2024-10-19 08:09] LABS: Albumin Level 4.1 g/dl (3.5-5.0); Chloride 107 mmol/L (98-107); Sodium 143 mmol/L (136-145)
[2024-10-19 08:10] LABS: Potassium 3.3 mmoL/L (3.5-5.1)
[2024-10-19 08:12] LABS: Alanine Aminotransferase 15 U/L (12-78); Anion Gap 11.3 mEq/L (5-15); Aspartate Amino Transferase 26 U/L (17-59); Bilirubin,Total 0.5 mg/dl (0.2-1.3); Blood Urea Nitrogen 16 mg/dl (9-20); Carbon Dioxide 28 mmol/L (22.0-30.0); Creatinine Clearance Estimated 145 mL/min (50-200); Estimated Glomerular Filt Rate 166 ml/min (>60); GFR (African American) 200 ML/MIN (>60)
[2024-10-19 08:13] LABS: Albumin/Globulin Ratio 2.1 (1.1-1.8); Alkaline Phosphatase 64 U/L (38-126); Calcium 8.6 mg/dl (8.4-10.2); Glucose 79 mg/dl (74-100); Total Protein,Serum 6.1 g/dl (6.3-8.2)
[2024-10-19] MEDS: CEFTRIAXONE SODIUM 1 GM in 0.9 % SODIUM CHLORIDE 50 ML IV (08:29)
[2024-10-19 08:36] LABS: Magnesium 1.8 mg/dl (1.6-2.3)
[2024-10-19 10:14] LABS: POC Glucose,Bedside 78 (70-110)
[2024-10-19 12:00] VITALS: BP 120/68; PULSE 67; RESP 16; TEMP 36.6; O2SAT 97
[2024-10-19] MEDS: METOCLOPRAMIDE 5MG TABLET 5 MG PO ×3 (12:15→20:55)
[2024-10-19] MEDS: POTASSIUM CHLORIDE 20MEQ TAB 40 MEQ PO (12:16)
--- NOTE | 2024-10-19 12:57 | P.PN_ITS ---
Subjective *Date: 10/19/24 *Time: 12:57 Interval history: Had more emesis overnight. Remains afebrile. Stable on room air. Sleeping initially upon entering the room. Mom in room with patient. Denies any diarrhea. Patient just wanting to sleep Medical Exam Vital signs and Labs for Last 24 Hours: Vital Signs Temp Pulse Pulse Resp BP Pulse Ox O2 Del Method 10/19/24 09:53 Room Air 10/19/24 08:34 Room Air 10/19/24 08:00 50 L 10/19/24 08:00 98.8 F 66 16 123/69 97 10/19/24 07:58 Room Air 10/19/24 06:48 Room Air 10/19/24 05:00 Room Air 10/19/24 04:00 98.8 F 70 16 130/78 97 Room Air 10/19/24 04:00 80 10/19/24 03:00 Room Air 10/19/24 01:00 Room Air 10/19/24 00:00 80 10/19/24 00:00 98.4 F 65 16 149/84 H 100 Room Air 10/18/24 23:00 Room Air 10/18/24 21:00 Room Air 10/18/24 20:00 Room Air 10/18/24 20:00 50 L 10/18/24 20:00 98.0 F 53 L 16 118/77 96 Room Air 10/18/24 18:25 Room Air 10/18/24 16:00 70 10/18/24 15:46 Room Air 10/18/24 15:45 98 F 62 16 106/64 L 98 Room Air 10/18/24 14:39 Room Air Intake and Output 10/18/24 10/19/24 10/19/24 23:59 07:59 15:59 Intake Total Output Total 0 / 250 0 / 0 Balance 0 / 1256 Intake: Intake, Total IV Amount 0.9 % Sodium Chloride 25 ml @ 100 mls/hr IV NEEDED PRN Rx# :[id number] Output: Output, Urine Amount 0 / 0 0 / 0 Other: Number of Unmeasured Voids 1 1 Weight 54.114 kg Patient Weight 10/19/24 23:59 Weight 54.114 kg Laboratory Results - last 24 hr 10/18/24 19:58: POC Glucose 183 H 10/19/24 02:33: POC Glucose 133 H 10/19/24 06:02: POC Glucose 97 10/19/24 06:45: WBC 11.1 H D, RBC 4.35 L, Hgb 13.0 L, Hct 37.6 L, MCV 86.4, MCH 29.9, MCHC 34.6, RDW 11.9, Plt Count 301, MPV 8.6, Neut % (Auto) 75.2, Lymph % (Auto) 14.9, [place] % (Auto) 9.1, Eos % (Auto) 0.0 L, Baso % (Auto) 0.3, Neut # (Auto) 8.4 H, Lymph # (Auto) 1.7, [place] # (Auto) 1.0, Eos # (Auto) 0.0, Baso # (Auto) 0.0, Sodium 143, Potassium 3.3 L, Chloride 107, Carbon Dioxide 28, Anion Gap 11.3, BUN 16, Creatinine 0.60 L, Estimated Creat Clear 145, Estimated GFR 166, Est GFR ( Amer) 200, Glucose 79 D, Calcium 8.6, Magnesium 1.8 D, Total Bilirubin 0.5, AST 26 D, ALT 15 D, Alkaline Phosphatase 64, Total Protein 6.1 L, Albumin 4.1 D, Globulin 2.0, Albumin/Globulin Ratio 2.1 H 10/19/24 10:05: POC Glucose 78 I & O for Labs for Last 24 Hours: Intake & Output 10/16/24 10/17/24 10/18/24 10/19/24 23:59 23:59 23:59 23:59 Intake Total 0 / 0 1481 / 1506 Output Total 0 / 0 250 / 250 0 / 0 Balance 0 / 0 0 / 1431 1231 / 1256 Weight 56.155 kg 56.155 kg 53.779 kg 54.114 kg Constitutional: Present no acute distress, thin and chronically ill appearing Head: Present atraumatic and normocephalic ENT: Present normal exam Neck: Present normal inspection Respiratory: Present normal respiratory effort; Absent rhonchi, wheezes or crackles Cardiac: Present Reg Rate and Rhythm GI: Present soft and normal bowel sounds; Absent distention, tenderness, guarding or rebound Extremities: Present normal inspection and full ROM Skin: Present intact; Absent erythema Neuro: Present Grossly Intact, alert, awake, oriented x 3 and moves all extremities Assessment and Plan *Assessment and plan (1) Nausea and vomiting in adult: Status: Acute Category: Medical Code(s): R11.2 - Nausea with vomiting, unspecified (2) Diabetic gastroparesis: Status: Acute Category: Medical Code(s): E11.43 - Type 2 diabetes mellitus with diabetic autonomic (poly)neuropathy; K31.84 - Gastroparesis (3) Diabetes mellitus type 1: Status: Acute Qualifiers: Diabetes mellitus complication status: with other specified complication Qualified Code(s): E10.69 - Type 1 diabetes mellitus with other specified complication Category: Medical Code(s): E10.9 - Type 1 diabetes mellitus without complications Plan Barry Joe is a 23-year-old male with a medical history significant for type 1 diabetes, medication nonadherence, gastroparesis, 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 Admitted for inability to tolerate p.o. intake did labs remained stable. Trying to advance diet. Still wanting to just sleep. Having nausea daily and emesis intermittently. Poor p.o. intake over the past 24 hours. Continue to monitor today. Anticipate discharge in the next day or 2. Problems addressed as follows: # Intractable nausea and vomiting #History of gastroparesis #History of THC use ? Presented with worsening nausea/vomiting and weakness; history of medication nonadherence, poor appetite. A1c 7.7 this admission. ? Anion gap closed today at 11. Potassium 3.3, magnesium 1.8. White count 11, improving. Continue empiric antibiotics for 24 more hours. -Kidney function normal with BUN 16, creatinine 0.6. Repeat CBC, CMP, magnesium ordered for the morning -continue basal insulin to 30 units tonight. Continue sliding scale with fingersticks ACHS, medium intensity sliding scale -Encourage Reglan 5 mg ACHS. Will hold on Phenergan today due to sedating effect - Protonix 40 mg for GI prophylaxis. ? Diabetic diet. Tobacco abuse -Nicotine patch as needed -Tobacco cessation counseling given Full code Diabetic diet
[2024-10-19] MEDS: BELLADONNA ALKALOIDS 60 ML ML PO (13:33)
[2024-10-19] MEDS: KCl 10mEq/100ml 100 ML 100 MEQ IV ×6 (14:14→20:29)
--- NOTE | 2024-10-19 14:51 | PC.NURSE ---
N/V times one and phenergan given iv.
[2024-10-19 16:00] VITALS: BP 140/79; PULSE 86; RESP 16; TEMP 37.3; O2SAT 99
[2024-10-19 16:12] LABS: POC Glucose,Bedside 121 (70-110)
[2024-10-19 20:00] VITALS: BP 135/76; PULSE 78; RESP 16; TEMP 37; O2SAT 99
[2024-10-19] MEDS: INSULIN GLARGINE 100 UNITS/ML 3ML FLEXPEN 30 UNIT SUBCUT (20:57)
[2024-10-20] MEDS: 0.9 % SODIUM CHLORIDE 1000ML 1,000 ML 125 ML IV ×3 (01:45→11:05)
[2024-10-20 04:00] VITALS: BP 144/76; PULSE 74; RESP 16; TEMP 36.9; O2SAT 99; BMI 19.1
[2024-10-20 06:02] LABS: Basophils % 0.2 % (0.1-2.0); Eosinophils % 0.1 % (0.1-12.0); Hematocrit 39.9 % (42.0-52.0); Hemoglobin 14.1 g/dL (14.1-18.0); Lymphocytes # 1.8 K/mm3 (0.7-4.5); Lymphocytes % 22.1 % (10-50); Mean Corpuscular HGB Conc 35.3 g/dL (31.8-35.4); Mean Corpuscular Hemoglobin 29.5 pg (27.0-31.2); Mean Corpuscular Volume 83.5 fl (80-94); Mean Platelet Volume 8.1 fl (7.4-10.4); Monocytes # 0.9 K/mm3 (0.1-1.0); Monocytes % 10.8 % (1.7-9.3); Neutrophils # 5.3 K/mm3 (1.8-7.8); Neutrophils % 65.9 % (37.0-80.0); Platelet Count 263 K/mm3 (142-424); Red Blood Count 4.78 M/mm3 (4.60-6.20); Red Cell Distribution Width 11.4 % (11.5-17.5); White Blood Count 8.1 K/mm3 (4.8-10.8)
--- NOTE | 2024-10-20 06:09 | PC.NURSE ---
Pt is alert and orientated x 4. Pt.is on room air. Pt. has had a good night. Nausea and vomiting has decreased. Pt. got scheduled Reglan and no other PRN anti-emetics this shift. Pt. has slept well this shift. IV fluids infusing. Pt's blood sugar at 2100 was 133, and at 0600 it was 53. Pt. drank some apple juice with sugar in it and has tried a 1/2 of a sahra cracker with peanut butter. Pt. states he was feeling a little low. No shakiness, sweating, Dizziness, no AMS. Will recheck blood sugar in 30 minutes. Pt's mother at bedside. Personal items and call bae in reach.
[2024-10-20 06:14] LABS: Albumin Level 3.7 g/dl (3.5-5.0); Chloride 103 mmol/L (98-107); Sodium 138 mmol/L (136-145)
[2024-10-20 06:15] LABS: Potassium 3.5 mmoL/L (3.5-5.1)
[2024-10-20 06:17] LABS: Alanine Aminotransferase 14 U/L (12-78); Albumin/Globulin Ratio 1.7 (1.1-1.8); Alkaline Phosphatase 48 U/L (38-126); Anion Gap 9.5 mEq/L (5-15); Aspartate Amino Transferase 21 U/L (17-59); Bilirubin,Total 0.5 mg/dl (0.2-1.3); Blood Urea Nitrogen 9 mg/dl (9-20); Carbon Dioxide 29 mmol/L (22.0-30.0); Creatinine Clearance Estimated 145 mL/min (50-200); Estimated Glomerular Filt Rate 166 ml/min (>60); GFR (African American) 200 ML/MIN (>60); Globulin 2.2 g/dL (1.3-3.2); Magnesium 1.6 mg/dl (1.6-2.3); Phosphorous 2.6 mg/dl (2.5-4.5); Total Protein,Serum 5.9 g/dl (6.3-8.2)
[2024-10-20 06:18] LABS: Calcium 8.4 mg/dl (8.4-10.2)
[2024-10-20] MEDS: METOCLOPRAMIDE 5MG TABLET 5 MG PO ×3 (06:21→16:50)
[2024-10-20] MEDS: PANTOPRAZOLE 40MG TABLET 40 MG PO (06:25)
[2024-10-20 06:33] LABS: Glucose 50 mg/dl (74-100)
[2024-10-20 06:45] LABS: POC Glucose,Bedside 53 (70-110)
[2024-10-20 06:45] LABS: POC Glucose,Bedside 133 (70-110)
--- NOTE | 2024-10-20 06:51 | PC.NURSE ---
Repeat blood sugar is 61. Pt. states that he feels ok.Resting quietly in bed.
[2024-10-20 07:29] VITALS: BP 137/82; PULSE 69; RESP 12; TEMP 37.1; O2SAT 98
--- NOTE | 2024-10-20 07:57 | P.PN_ITS ---
Subjective *Date: 10/20/24 *Time: 07:57 Medical Exam Vital signs and Labs for Last 24 Hours: Vital Signs Temp Pulse Pulse Resp BP Pulse Ox O2 Del Method 10/20/24 07:29 98.8 F 69 12 137/82 98 Room Air 10/20/24 06:52 Room Air 10/20/24 05:00 Room Air 10/20/24 04:00 98.5 F 74 16 144/76 H 99 Room Air 10/20/24 03:00 Room Air 10/20/24 01:00 Room Air 10/19/24 23:00 Room Air 10/19/24 21:00 Room Air 10/19/24 20:00 Room Air 10/19/24 20:00 98.6 F 78 16 135/76 99 Room Air 10/19/24 19:00 Room Air 10/19/24 16:09 Room Air 10/19/24 16:00 99.2 F 86 16 140/79 99 Room Air 10/19/24 14:37 Room Air 10/19/24 12:00 98 F 67 16 120/68 97 10/19/24 09:53 Room Air 10/19/24 08:34 Room Air 10/19/24 08:00 50 L 10/19/24 08:00 98.8 F 66 16 123/69 97 10/19/24 07:58 Room Air Intake and Output 10/19/24 10/19/24 10/20/24 15:59 23:59 07:59 Intake Total 1600 / 1825 200 / 200 Output Total 0 / 0 0 / 0 Balance 1600 / 1825 0 / 1825 200 / 200 Intake: Intake, Total IV Amount 1600 / 1825 200 / 200 0.9 % Sodium Chloride 25 ml @ 1000 / 1025 100 mls/hr IV NEEDED PRN Rx# :[id number] KCl 10mEq/100ml 100 ml @ 100 600 / 800 200 / 200 mls/hr IV Q1H MARCELO Rx#:[id number] Output: Output, Urine Amount 0 / 0 0 / 0 Other: Number of Unmeasured Voids 1 1 Weight 53.977 kg Patient Weight 10/20/24 23:59 Weight 53.977 kg Laboratory Results - last 24 hr 10/19/24 06:45: WBC 11.1 H D, RBC 4.35 L, Hgb 13.0 L, Hct 37.6 L, MCV 86.4, MCH 29.9, MCHC 34.6, RDW 11.9, Plt Count 301, MPV 8.6, Neut % (Auto) 75.2, Lymph % (Auto) 14.9, [place] % (Auto) 9.1, Eos % (Auto) 0.0 L, Baso % (Auto) 0.3, Neut # ( Auto) 8.4 H, Lymph # (Auto) 1.7, [place] # (Auto) 1.0, Eos # (Auto) 0.0, Baso # (Auto) 0.0, Sodium 143, Potassium 3.3 L, Chloride 107, Carbon Dioxide 28, Anion Gap 11.3, BUN 16, Creatinine 0.60 L, Estimated Creat Clear 145, Estimated GFR 166, Est GFR ( Amer) 200, Glucose 79 D, Calcium 8.6, Magnesium 1.8 D, Total Bilirubin 0.5, AST 26 D, ALT 15 D, Alkaline Phosphatase 64, Total Protein 6.1 L, Albumin 4.1 D, Globulin 2.0, Albumin/Globulin Ratio 2.1 H 10/19/24 10:05: POC Glucose 78 10/19/24 16:03: POC Glucose 121 H 10/19/24 20:52: POC Glucose 133 H 10/20/24 05:50: WBC 8.1 D, RBC 4.78, Hgb 14.1, Hct 39.9 L, MCV 83.5, MCH 29.5, MCHC 35.3, RDW 11.4 L, Plt Count 263, MPV 8.1, Neut % (Auto) 65.9, Lymph % (Auto) 22.1, [place] % (Auto) 10.8 H, Eos % (Auto) 0.1, Baso % (Auto) 0.2, Neut # (Auto) 5.3, Lymph # (Auto) 1.8, [place] # (Auto) 0.9, Eos # (Auto) 0.0, Baso # (Auto) 0.0, Sodium 138, Potassium 3.5, Chloride 103, Carbon Dioxide 29, Anion Gap 9.5, BUN 9 D, Creatinine 0.60 L, Estimated Creat Clear 145, Estimated GFR 166, Est GFR ( Amer) 200, Glucose 50 L D, POC Glucose 53 L, Calcium 8.4, Phosphorus 2.6, Magnesium 1.6 D, Total Bilirubin 0.5, AST 21, ALT 14, Alkaline Phosphatase 48, Total Protein 5.9 L, Albumin 3.7, Globulin 2.2, Albumin/Globulin Ratio 1.7 I & O for Labs for Last 24 Hours: Intake & Output 10/17/24 10/18/24 10/19/24 10/20/24 23:59 23:59 23:59 23:59 Intake Total 1481 / 1506 1625 / 1825 200 / 200 Output Total 0 / 0 250 / 250 0 / 0 0 / 0 Balance 0 / 1431 1231 / 1256 1625 / 1825 200 / 200 Weight 56.155 kg 53.779 kg 54.114 kg 53.977 kg The patient's infection will respond to the chosen ABx?: Yes (NO SPECIMAN, WHITE COUNT 8.1, AFEBRILE OVER 24 HR.) Is the patient receiving the right drug, dose, and route?: Yes Could a more targeted ABx be ordered?: No
[2024-10-20] MEDS: CEFTRIAXONE SODIUM 1 GM in 0.9 % SODIUM CHLORIDE 50 ML IV (08:14)
[2024-10-20 08:31] LABS: POC Glucose,Bedside 87 (70-110)
[2024-10-20] MEDS: KCl 10mEq/100ml 100 ML 100 MEQ IV ×6 (09:21→17:55)
--- NOTE | 2024-10-20 09:28 | PC.NURSE ---
Pt placed on telemetry for potassium and magnesium IV replacement.
[2024-10-20] MEDS: MAGNESIUM SULFATE IN WATER 2 GM/50 ML PIGGYBACK IV ×2 (11:06→12:08)
[2024-10-20] MEDS: SENNOSIDES 8.6MG/DOCUSATE 50MG TABLET 1 TAB PO (11:06)
[2024-10-20 11:51] VITALS: BP 137/74; PULSE 60; RESP 14; TEMP 36.9; O2SAT 98
[2024-10-20 12:00] VITALS: PULSE 70
--- NOTE | 2024-10-20 12:11 | PC.NURSE ---
Pt is not happy with his meal. Dietary contacted for alternatives.
[2024-10-20 16:00] VITALS: BP 140/72; PULSE 55; PULSE 60; RESP 14; TEMP 37; O2SAT 97
[2024-10-20 17:09] LABS: POC Glucose,Bedside 90 (70-110)
[2024-10-20 20:00] VITALS: BP 127/81; PULSE 73; RESP 16; TEMP 37.2; O2SAT 98
--- NOTE | 2024-10-20 20:01 | P.DS_ITS ---
General Admission date:: 10/16/24 Discharge date: 10/20/24 HPI HPI HPI: This is a 23-year-old male with past medical history of type 1 diabetes who presents the emergency department today with complaints of vomiting. Mother is at bedside and provides collateral and states that he has had difficulty getting his long-acting insulin filled at the pharmacies recently. States that he is been without his long-acting for approximately 2 days. Was able to get it filled today in [place] but had vomiting and abdominal pain episodes today. Has been working with endocrinology to try to get set up for insulin pump. Mom states that he has an appointment on Sunday in [place] to receive his pump and education on pump usage. Initial glucose in the emergency department for 16 without DKA. Patient had reduction in glucose after insulin administered. He underwent volume resuscitation but despite treatment modalities he persisted with vomiting in the emergency department. 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 Ad mitted for inability to tolerate p.o. intake did labs remained stable. Very slow to advance diet. Remained closed and tolerating insulin for over 48 hours. Able to advance to full liquids by day of discharge. Has appointment for insulin pump in the morning, given his tolerance of liquids and improvement clinically, will discharge home safe and keep his appointment for improved diabetes control as an outpatient. Patient agreeable with this plan. Clinically stable. Problems addressed as follows: # Intractable nausea and vomiting #History of gastroparesis #History of THC use ? Presented with worsening nausea/vomiting and weakness; history of medication nonadherence, poor appetite. A1c 7.7 this admission. Anion gap closed during admission. Electrolytes showed improvement. Gradually advance diet to full liquids. No nausea for 24 hours. Hemodynamically stable. Continue Reglan 5 mg 3 times a day as needed. Continue PPI for GERD. Stable discharge home. Has appointment in the morning for insulin pump. Encouraged to keep this appointment. Advance to regular diet Tobacco abuse -Nicotine patch as needed -Tobacco cessation counseling given Total time spent on discharge 32 minutes in counseling, documentation, chart review, and direct care with patient. Exam Data for Last 24 hours Vital signs and Labs for Last 24 Hours: Temp Pulse Resp BP Pulse Ox O2 Del Method 98.6 F 55 L 14 140/72 97 Room Air 10/20/24 16:00 10/20/24 16:00 10/20/24 16:00 10/20/24 16:00 10/20/24 16:00 10/20/24 19:00 Laboratory Results - last 24 hr 10/19/24 20:52: POC Glucose 133 H 10/20/24 05:50: WBC 8.1 D, RBC 4.78, Hgb 14.1, Hct 39.9 L, MCV 83.5, MCH 29.5, MCHC 35.3, RDW 11.4 L, Plt Count 263, MPV 8.1, Neut % (Auto) 65.9, Lymph % (Auto) 22.1, [place] % (Auto) 10.8 H, Eos % (Auto) 0.1, Baso % (Auto) 0.2, Neut # (Auto) 5.3, Lymph # (Auto) 1.8, [place] # (Auto) 0.9, Eos # (Auto) 0.0, Baso # (Auto) 0.0, Sodium 138, Potassium 3.5, Chloride 103, Carbon Dioxide 29, Anion Gap 9.5, BUN 9 D, Creatinine 0.60 L, Estimated Creat Clear 145, Estimated GFR 166, Est GFR ( Amer) 200, Glucose 50 L D, POC Glucose 53 L, Calcium 8.4, Phosphorus 2.6, Magnesium 1.6 D, Total Bilirubin 0.5, AST 21, ALT 14, Alkaline Phosphatase 48, Total Protein 5.9 L, Albumin 3.7, Globulin 2.2, Albumin/Globulin Ratio 1.7 10/20/24 08:23: POC Glucose 87 10/20/24 16:47: POC Glucose 90 I & O for Last 24 hours: Intake & Output 10/17/24 10/18/24 10/19/24 10/20/24 23:59 23:59 23:59 23:59 Intake Total 1481 / 1506 1625 / 1825 4698 / 4698 Output Total 0 / 0 250 / 250 0 / 0 0 / 0 Balance 0 / 1431 1231 / 1256 1625 / 1825 4698 / 4698 Weight 56.155 kg 53.779 kg 54.114 kg 53.977 kg Constitutional Constitutional: no acute distress, thin, chronically ill appearing and cooperative *Routine HEENT Exam Head: Present normocephalic Eye: Present EOMI and PERRL ENT: Present mucous membranes moist *Routine Neck Exam Neck: Present supple; Absent lymphadenopathy *Routine Respiratory Exam Respiratory: Present CTA bilaterally; Absent rhonchi, wheezes or crackles *Routine Cardiovascular Exam Cardiovascular: Present RRR *Routine Abdominal Exam Abdominal: Present soft and normoactive bowel sounds; Absent tenderness or distended *Routine Rectal Exam Patient deferred: visual exam *Routine Exam Patient deferred: penile exam *Routine Extremities Exam Extremities: Absent cyanosis, clubbing or edema *Routine Skin Exam Skin: Present warm; Absent rash *Routine Neurological Exam Neurological: Present alert, oriented X3 and moving all extremities; Absent altered mental status Routine Psychiatric Exam Psychiatric: Present normal affect; Absent good insight or good judgment Results Data Completed and Pending Labs on day of discharge: Labs from last 24 hours 10/20/24 10/20/24 10/20/24 16:47 08:23 05:50 WBC 8.1 D RBC 4.78 Hgb 14.1 Hct 39.9 L MCV 83.5 MCH 29.5 MCHC 35.3 RDW 11.4 L Plt Count 263 MPV 8.1 Neut % (Auto) 65.9 Lymph % (Auto) 22.1 [place] % (Auto) 10.8 H Eos % (Auto) 0.1 Baso % (Auto) 0.2 Neut # (Auto) 5.3 Lymph # (Auto) 1.8 [place] # (Auto) 0.9 Eos # (Auto) 0.0 Baso # (Auto) 0.0 Sodium 138 Potassium 3.5 Chloride 103 Carbon Dioxide 29 Anion Gap 9.5 BUN 9 D Creatinine 0.60 L Estimated Creat Clear 145 Estimated GFR 166 Est GFR ( Amer) 200 Glucose 50 L D POC Glucose 90 87 53 L Calcium 8.4 Phosphorus 2.6 Magnesium 1.6 D Total Bilirubin 0.5 AST 21 ALT 14 Alkaline Phosphatase 48 Total Protein 5.9 L Albumin 3.7 Globulin 2.2 Albumin/Globulin Ratio 1.7 10/19/24 20:52 WBC RBC Hgb Hct MCV MCH MCHC RDW Plt Count MPV Neut % (Auto) Lymph % (Auto) [place] % (Auto) Eos % (Auto) Baso % (Auto) Neut # (Auto) Lymph # (Auto) [place] # (Auto) Eos # (Auto) Baso # (Auto) Sodium Potassium Chloride Carbon Dioxide Anion Gap BUN Creatinine Estimated Creat Clear Estimated GFR Est GFR ( Amer) Glucose POC Glucose 133 H Calcium Phosphorus Magnesium Total Bilirubin AST ALT Alkaline Phosphatase Total Protein Albumin Globulin Albumin/Globulin Ratio DS: Diagnosis Discharge Diagnosis (1) Nausea and vomiting in adult: Status: Acute Code(s): R11.2 - Nausea with vomiting, unspecified (2) Diabetic gastroparesis: Status: Acute Code(s): E11.43 - Type 2 diabetes mellitus with diabetic autonomic (poly)neuropathy; K31.84 - Gastroparesis (3) Diabetes mellitus type 1: Status: Acute Code(s): E10.9 - Type 1 diabetes mellitus without complications Qualifiers: Diabetes mellitus complication status: with other specified complication Qualified Code(s): E10.69 - Type 1 diabetes mellitus with other specified complication Meds Home Medications and Allergies Home Medications ?Medication ?Instructions ?Recorded ?Confirmed ?Type pantoprazole 40 mg tablet,delayed 40 mg PO AM 06/27/24 10/16/24 History release pen needle, diabetic 32 gauge x #1,200 ea 07/02/24 10/16/24 History (BD Sydnie 2nd Gen Pen Needle) insulin lispro 100 unit/mL 10 - 15 unit SQ AC 08/10/24 10/16/24 History subcutaneous pen metoclopramide HCl 5 mg tablet 5 mg PO ACHS PRN Nausea And 08/11/24 10/16/24 Rx Vomiting 30 days #120 tabs potassium chloride 20 mEq 40 meq (2 x 20 mEq) PO DAILY 30 08/11/24 10/16/24 Rx tablet,extended days #60 tabs release(part/cryst) (Klor-Con M) blood-glucose sensor (FreeStyle #1 ea 08/18/24 10/16/24 Rx Poli 3 Sensor device) cholecalciferol (vitamin D3) 125 125 mcg PO DAILY #30 tabs 08/19/24 10/16/24 Rx mcg (5,000 unit) tablet metoprolol succinate 25 mg 25 mg PO DAILY #30 tabs 09/04/24 10/16/24 Rx tablet,extended release 24 hr (Toprol XL) insulin glargine U-300 conc 300 30 unit SQ HS 10/17/24 10/17/24 History unit/mL (3 mL) subcutaneous pen (Toujeo Max U-300 SoloStar) New Prescriptions to Start Prescriptions: Allergies Allergy/AdvReac Type Severity Reaction Status Date / Time No Known Allergies Allergy Verified 09/18/24 14:40 Discharge Plan Disposition Patient Disposition: Home, Self-Care Condition: Fair Discharge Order Discharge Orders: Discharge Order (Routine); Ordered 10/20/24 Ordered By: Harshil Schultz Follow up Plan Follow up with: Gretchen Angelo APRN [Primary Care Provider] - 10/23/24 1:00 pm Prescriptions/Medication Reconciliation: Continued (DME) pen needle, diabetic [BD Sydnie 2nd Gen Pen Needle] 32 gauge x 5/32 needle See Rx Instructions .ROUTE .MEDSUPPLY Qty: 1200 Patient Comments: USE DIRECTED Rx Instructions: As directed metoprolol succinate [Toprol XL] 25 mg tablet extended release 24 hr 25 mg PO DAILY Qty: 30 2RF (DME) FreeStyle Poli 3 Sensor Device See Rx Instructions .Route Qty: 1 11RF Rx Instructions: As directed cholecalciferol (vitamin D3) 125 mcg (5,000 unit) tablet 125 mcg PO DAILY Qty: 30 5RF insulin lispro 100 unit/mL Insulin Pen 10 - 15 unit SQ AC potassium chloride [Klor-Con M20] 20 mEq Tablet,Er Particles/Crystals 40 meq PO DAILY 30 Days Qty: 60 0RF metoclopramide HCl 5 mg Tablet 5 mg PO ACHS PRN (Reason: Nausea And Vomiting) 30 Days Qty: 120 0RF pantoprazole 40 mg tablet,delayed release (DR/EC) 40 mg PO AM Patient Comments: TAKE 1 TABLET BY MOUTH ONCE DAILY ON AN EMPTY STOMACH insulin glargine U-300 conc [Toujeo Max U-300 SoloStar] 300 unit/mL (3 mL) insulin pen 30 unit SQ HS Problem Reconciliation Problems Reviewed?: Yes Patient Discharge Instructions ACTIVITY: Continue current activity DIET: continue same diet Patient Instructions: Carbohydrate-Counting Diet, DI for Nausea -- Adult, DI for Vomiting -- Adult, Using Nutrition Labels: Carbohydrate Diet Print Language: [place] Providers Primary Care Provider: Gretchen Angelo Admit Provider: Harshil Schultz Attending Provider: Harshil Schultz
--- NOTE | 2024-10-20 21:09 | PC.NURSE ---
Patient left floor for home at 21:00.
--- NOTE | 2024-10-21 10:04 | SW/DCPLANNER ---
Spoke with patient on the phone. Patient stated that he is doing okay. Patient stated that he was not prescribed any new medicine. Patient stated that he is aware of his upcoming appointments. Patient stated that he has no concerns or questions at this time. Geneva Larkin
== END 2024-10-20 21:00 | disposition home or self-care (01) | DRG 639 ==
LOC: ER 19:32 → 2ND 20:21
PROVIDERS: Nurse Practitioner; Nurse Practitioner Acute Care; Admitting Provider Internal Medicine Adolescent Medicine; Emergency Provider Student in an Organized Health Care Education/Training Program; PCP Nurse Practitioner; Visit Provider Internal Medicine Adolescent Medicine
DX: E10.65 Type 1 diabetes mellitus with hyperglycemia (principal); R11.2 Nausea with vomiting, unspecified; R63.8 Other symptoms and signs concerning food and fluid intake; R53.1 Weakness; T38.3X6A Underdosing of insulin and oral hypoglycemic [antidiabetic] drugs, initial encounter; Y63.6 Underdosing and nonadministration of necessary drug, medicament or biological substance; F17.290 Nicotine dependence, other tobacco product, uncomplicated; F12.91 Cannabis use, unspecified, in remission; Z91.148 Patient's other noncompliance with medication regimen for other reason; Z80.9 Family history of malignant neoplasm, unspecified; Z82.49 Family history of ischemic heart disease and other diseases of the circulatory system; Z83.3 Family history of diabetes mellitus; Z71.6 Tobacco abuse counseling; Z79.899 Other long term (current) drug therapy; Z87.19 Personal history of other diseases of the digestive system
CPT/HCPCS: 36415; 71045; 80048; 80053; 81001; 82009; 82803; 82962; 83036; 83605; 83690; 83735; 84100; 85007; 85025; 93005; 99285; J0696; J1630; J1790; J2405; J2550; J3475; J3480; J7030

== ENCOUNTER 2025-02-13 08:29 | Observation (INO) | payer OTHER, SELFPAY ==
--- OUTSIDE RECORDS SUMMARY | 2004-02-15 | XMS_ITS | Encounter Summary ---
Author Organization [facility] Address [address] [place] [address] Care Team Providers Care Brim Setter Name Role Phone Unavailable Primary Care Provider Unavailabl e Encounter Details Date Type Department Care Team (Late st Contact Info) Description 02/15/2004 Hospital Encounter [facility] Division of Pediatric Surgery [address] [place] [phone] Social History Tobacco Use Types Packs/Day [...]
[2025-02-13] VITALS (11 sets, daily range): BP systolic 92–148; BP diastolic 40–91; PULSE 51–68; RESP 12–22; TEMP 36–37.2; O2SAT 96–99; BMI 18.8; BMI 19.3
--- NOTE | 2025-02-13 08:40 | ECG_ITS ---
APPROVED REPORT Exam: Resting ECG HR:56 bpm ECG Measurements Heart Rate 56 AXES NH 159 P 214 QRSd 91 QRS 118 QT 416 T 112 QTc 407 Conclusion ECTOPIC ATRIAL BRADYCARDIA RIGHT AXIS DEVIATION [QRS AXIS > 100] MODERATE ST DEPRESSION [0.05+ mV ST DEPRESSION] ABNORMAL ECG UNCONFIRMED REPORT Sinus bradycardia. Isolated ST elevation in lead III, aVF. No reciprocal changes. T wave inversions in aVL Electronically signed by : JEANNINE WEST, 02/16/2025 14:35:12
--- NOTE | 2025-02-13 08:40 | PC.NURSE ---
DR WEST AT BEDSIDE
--- OUTSIDE RECORDS SUMMARY | 2025-02-13 08:50 | XMS_ITS | Clinical Summary ---
Author Organization [facility] Address [address] [place] [address] Care Team Providers Care Mig Welder Name Role Phone None, None Primary Care Provider Unavailabl e Mychart, Generic Provider Unavailable Shena Joe MD Unavailable [phone] Suellen Hurley NP Unavailable Allergies No known active allergies Medications Blood-Glucose Meter Misc Use 1 Each as instructed 4 times daily (before meals and at bedtime). 1 Each 04/14/2019 4:02 PM EDT 04/14/20 19 Active Insulin Thornton, Disposable, 31 gauge x 5/16 NeedleIndications :Type 2 diabetes, uncontrolled, with neuropathy use with insulin pen 100 Each 3 05/28/20 19 Active Blood-Glucose Sensor (Dexcom G6 Sensor) DeviceIndications :Type 2 diabetes, uncontrolled, with neuropathy,Diabet es mellitus type 1, uncontrolled, without complications 1 Device by Does not apply route See instructions. Apply every 10 days. 3 Each 11 05/29/20 19 Active Additional Information Patient not taking.Reported on 12/30/2020 Blood-Glucose Transmitter (Dexcom G6 Transmitter) DeviceIndications :Type 2 diabetes, uncontrolled, with neuropathy,Diabet es mellitus type 1, uncontrolled, without complications 1 Device by Does not apply route See instructions. Change device every 3 months 1 Device 3 05/29/20 19 Active Additional Information Patient not taking.Reported on 12/30/2020 insulin lispro (HumaLOG U-100 Insulin) 100 unit/mL Solution USe up to 60 units in divided doses via insulin pump 60 mL 1 07/07/20 19 Active Insulin Glargine (Basaglar KwikPen U-100 Insulin) 100 unit/mL (3 mL) Solostar INPN 15 Units by Subcutaneous route nightly. Samples of this drug were given to the patient, Quantity 2, Lot Number [id number], Expiration 03/2020 6 mL 1 07/10/20 19 Active insulin lispro (HumaLOG U-100 Insulin) 100 unit/mL Solution USE UP TO 90 UNITS PER DAY IN DIVIDED IN DOSES. 90 mL 1 10/08/19 20 Active Additional Information Patient not taking.Reported on 12/30/2020 sertraline (ZOLOFT) 25 mg tablet Take 25 mg by mouth daily. Active Accu-Chek Guide test strips StripIndications: Type 2 diabetes, uncontrolled, with neuropathy Use 1 Strip as instructed 4 times daily (before meals and at bedtime). Type 1 Diabetes uncontrolled E.10.65 350 Strip 3 06/18/20 20 Active Accu-Chek Fastclix Lancet Drum MiscIndications:T ype 2 diabetes, uncontrolled, with neuropathy USE TO CHECK BLOOD SUGAR 4 TIMES A DAY BEFORE MEALS AND AT BEDTIME 120 Each 6 02/25/20 21 Active HumaLOG U-100 Insulin 100 unit/mL Solution INJECT UP TO 90 UNITS PER DAY IN DIVIDED DOSES 90 mL 1 02/24/20 21 Active methIMAzole (TAPAZOLE) 10 mg tabletIndications :Joan's disease,Low TSH level TAKE 1 TABLET BY MOUTH EVERY DAY 30 Tablet 03/29/20 21 Active Active Problems Problem Noted Date Diagnosed Date Diabetes mellitus type 1, un controlled, without complications 04/12/2019 Intractable vomiting with nausea 04/12/2019 Acute renal insufficiency 04/12/2019 Current use of insulin 04/12/2019 Diabetic ketoacidosis withou t coma associated with type 1 diabetes mellitus 04/11/2019 Social History Tobacco Use Types Packs/Day Years Used Date Smoking Tobacco: Former Smokeless Tobacco: Current Alcohol Use Standard Drinks/Week Comments Not Currently 0 (1 standard drink = 0.6 oz pur e alcohol) Sex and Gender Information Value Date Recorded Sex Assigned at Male 04/23/2019 8:25 AM EDT Legal Sex Male 4:28 PM EDT Gender Identity Male 04/23/2019 8:25 AM EDT Sexual Orientation Not on file Last Filed Vital Signs Vital Sign Reading Time Taken Comments Blood Pressure 117/66 06/21/2023 11:00 AM EST Pulse 56 06/21/2023 11:00 AM EST Temperature 36.7 C (98.1 F) 06/21/2023 11:00 AM EST Respiratory Rate 18 06/21/2023 11:00 AM EST Oxygen Saturation 100% 06/21/2023 11:00 AM EST Inhaled Oxygen Concentration - - Weight 49.9 kg (110 lb) 06/21/2023 11:00 AM EST Height 170.2 cm (5' 7 ) 06/21/2023 11:00 AM EST Body Mass Index 17.23 06/21/2023 11:00 AM EST Plan of Treatment Health Maintenance Due Date Last Done Comments Diabetes Mellitus Foot Care (Yearly) 1999 HPV Vaccine (1 - Male 3-dose series) 12/19/2014 Tetanus Vaccination (Every 1 0 Years) 12/19/2017 Diabetes Mellitus Eye Exam (Yearly) 04/25/2020 04/25/2019, 04/25/2019 Diabetes A1c Monitoring 07/01/2021 12/31/19 21, 05/28/2020, 01/28/2020, Additional history exists Diabetes Mellitus Microalbum in (Yearly) 12/30/2021 12/30/2020, 04/23/2019 Lipid Monitoring 12/30/2021 12/30/2020, 04/23/2019 Renal Monitoring 12/30/2021 12/30/2020, 11/2019, 04/15/2019, Additional history exists COVID-19 Vaccine (1 - 2023-2 5 season) 2024 Depression Screening 07/16/2024 Influenza Vaccination (#1) 2025 Diabetes Mellitus Hemoglobin A1c (Yearly) Discontinued 12/30/2020, 05/28/2020, 01/28/2020, Additional history exists Lipid Screening (One Time ag e 20-34) Discontinued 12/30/2020, 04/23/2019 Procedures Procedure Name Priority Date/Time Associated Diagnosis Comments RENAL PROFILE Routine 12/30/2020 4:22 PM EDT Uncontrolled type 1 diabetes mellitus with hyperglycemia, with long-term current use of insulin LIPID PROFILE Routine 12/30/2020 4:22 PM EDT Uncontrolled type 1 diabetes mellitus with hyperglycemia, with long-term current use of insulin ALBUMIN, URINE CREATININE/RATIO Routine 12/30/2020 4:22 PM EDT Uncontrolled type 1 diabetes mellitus with hyperglycemia, with long-term current use of insulin CHG HGB GLYCOSYLATED A1C DEVICE CLEARED FDA HOME USE Routine 12/30/2020 3:54 PM EDT Uncontrolled type 1 diabetes mellitus with hyperglycemia, with long-term current use of insulin AMB REFERRAL TO OPHTHALMOLOGY Routine 04/25/2019 from Last 3 Months or Most Recently Relevant to Health Maintenance Results * ALBUMIN, URINE (12/30/2020 4:22 PM EDT) Creatinine, Ur 65.0 30.0 - 310.0 mg/dL [facility] Alb, Ur 1.30 mg/dL [facility] Alb Creat Ratio 20 0 - 30 mg/g creat [facility] Comment: Category Result (mg/ g Creat) Normal to mildly increased <30 Moderately increased 30-299 Severly increased >300 Due to variability in urinary albumin excretion, at least two of three test results measured within a 6-month period should show elevated levels before a patient is designated as having albuminuria. Urine 12/30/2020 4:22 PM EDT 12/30/2020 6:45 PM EDT us Shena Lloyd MD URINE ORDERABLES Final Res ult [facility] [address] * (ABNORMAL) RENAL PROFILE (12/30/2020 4:22 PM EDT) Sodium 137 135 - 146 mmol/L [facility] Potassium 4.7 3.5 - 5.1 mmol/L [facility] Chloride 103 98 - 110 mmol/L [facility] CO2 29 22 - 29 mmol/L [facility] Anion Gap 5 5 - 13 mmol/L [facility] Comment:Anion gap calculatio n does not include potassium (K+) value. BUN 17 7 - 25 mg/dL [facility] Creatinine 1.32(H) 0.50 - 1.30 mg/dL [facility] Glucose 305(H) 71 - 99 mg/dL [facility] GFR MDRD Af Amer 83 See Note [facility] Comment: GFR is estimated using Creatinine, age, gender and race. Patient's values should be interpreted as a trend. Between 30 and 90 ml/min/1.73m2, clinical correlation is needed. For additional information: www.kidney.org Calcium 9.5 8.8 - 10.9 mg/dL [facility] Comment: Effective 12/17/20, there is a new formulation of Calcium reagent. The new reference range is 8.8-10.9 mg/dL; no changes to the critical value ranges. GFR MDRD Non Af Amer 68 See Note [facility] Comment: GFR is estimated using Creatinine, age, gender and race. Patient's values should be interpreted as a trend. Between 30 and 90 ml/min/1.73m2, clinical correlation is needed. For additional information: www.kidney.org Phosphorus 3.6 2.5 - 4.5 mg/dL [facility] Albumin 4.8 3.5 - 5.0 g/dL [facility] BUN/Creatinine Ratio 13 [facility] Serum (Serum) 12/30/2020 4:2 2 PM EDT 12/30/2020 7:02 PM EDT Shena Lloyd MD CHEMISTRY ORDERABLES Final Result [facility] [address] * LIPID PROFILE (12/30/2020 4:22 PM EDT) Chol/HDL Ratio 2.8 0 - 5 [facility] Cholesterol 166 125 - 199 mg/dL [facility] Comment: TOTAL CHOLESTEROL INTERPRETATION: Less than 200 mg/dL Desireable 200-239 mg/dL Borderline Greater or Equal to 240 mg/dL High LDL Calculated 87 0 - 100 mg/dL [facility] Comment: LDL CHOLESTEROL INTERPRETATION: Less than 100 mg/dL Optimal 100-129 mg/dL Near optimal/above optimal 130-159 mg/dL Borderline High 160-189 mg/dL High Greater or Equal to 190 mg/dL Very High HDL 59 40 - 180 mg/dL [facility] Comment: HDL CHOLESTEROL INTERPRETATION: Less than 40 mg/dL Low Greater than 60 mg/dL Desirable Triglycerides 101 0 - 150 mg/dL [facility] Comment: TOTAL TRIGLYCERIDE INTERPRETATION: Less than 150 mg/dL Normal 150-199 mg/dL Borderline HIgh 200-499 mg/dL High Greater or Equal to 500 mg/dL Very High Serum (Serum) 12/30/2020 4:2 2 PM EDT 12/30/2020 7:02 PM EDT Shena Lloyd MD CHEMISTRY ORDERABLES Final Result [facility] [address] * POCT AMB HEMOGLOBIN A1C (12/30/2020 3:54 PM EDT) Hgb A1C 8.3 % 12/30/2020 3:54 PM EDT Shena Lloyd MD AMB POINT OF CARE Final Re sult * AMB REFERRAL TO OPHTHALMOLOGY (04/25/2019) Historical Provider OUTPATIENT REFERRAL ORDERABL ES Final Result from Last 3 Months or Most Recently Relevant to Health Maintenance Insurance ANTHEM ANTHEM ANTHEM Advance Directives For more information, please contact: [phone] * Full Code (Latest Code Status on File) Date Activated Date Inactivated Comments 04/11/2019 6:39 PM 06/21/2023 10:47 AM No automate d chest compression devices for VAD Patients * Full Code Date Activated Date Inactivated Comments 04/11/2019 6:37 PM 04/11/2019 6:39 PM Care Teams Mig Welder Relationship Specialty Start Date End Date None, None [address] [place] [address] PCP - General 04/11/19 Ceferinohart, Generic Provider 09/01/20 Shena Lloyd MD [address] [place] [address] Endocrinology/Diabetes/ Metabolism 12/30/20 Suellen Hurley NP [address] [place] [address] Nurse Practitioner Endocrinology/Diabetes/ Metabolism 03/29/21
--- OUTSIDE RECORDS SUMMARY | 2025-02-13 08:50 | XMS_ITS | Encounter Summary ---
Author Organization [facility] Address [facility] [place] [address] Care Team Providers Care Boat Tester Name Role Phone None, None Primary Care Provider Unavailabl e Mychart, Generic Provider Unavailable Shena Joe MD Unavailable [phone] Suellen Hurley NP Unavailable Reason for Visit * Reason Onset Date Comments Other 02/13/2020 EYE EXAM Encounter Details Date Type Department Care Team (Late st Contact Info) Description 02/13/2020 Clinical Update [facility] - [facility], [place] [address] [place] [address] Suellen Hurley NP [address] [place] [address] Other (EYE EXAM) Social History Tobacco Use Types Packs/Day Years [...] AM EDT Sexual Orientation Not on file COVID-19 Exposure Response Date Recorded In the last month, have you been in contact with someone who was confirmed or suspected to have Coronavirus / COVID-19? No / Unsure 01/28/2020 11:37 AM EDT documented as of this encounter Plan of Treatment Not on file documented as of this encounter Visit Diagnoses Not on filedocumented in this encounter Care Teams Boat Tester Relationship Specialty Start Date End Date None, None [address] [place] [address] PCP - General 04/11/19 Mychart, Generic Provider 09/01/20 Shena Lloyd MD [address] [place] [phone] Endocrinology/Diabetes/ Metabolism 12/30/20 Suellen Hurley NP [address] [place] [address] Nurse Practitioner Endocrinology/Diabetes/ Metabolism 03/29/21 documented as of this encounter
--- OUTSIDE RECORDS SUMMARY | 2025-02-13 08:50 | XMS_ITS | Encounter Summary ---
Author Organization [facility] Address [address] [place] [address] Care Team Providers Care Social Sciences Instructor Name Role Phone None, None Primary Care Provider Unavailabl e Mychart, Generic Provider Unavailable Shena Joe MD Unavailable [phone] Suellen Hurley NP Unavailable Reason for Visit * Reason Onset Date Comments Other 01/22/2020 [facility] fax Encounter Details Date Type Department Care Team (Late st Contact Info) Description 01/22/2020 Telephone [facility] - [facility], [place] [address] [place] [address] Shena Lloyd MD [address] [place] [address] Other ([employer] fax) Social History Tobacco Use Types Packs/Day Years [...] have Coronavirus / COVID-19? No / Unsure 01/21/2020 2:41 PM EDT documented as of this encounter Miscellaneous Notes * Telephone Encounter - Liz Finnegan CMA - 01/22/2020 10:07 AM EDT faxed * Telephone Encounter - Isabella Marshall - 01/22/2020 6:55 AM EDT Rcvd fax from [employer] for SB to review and sign-placed in box documented in this encounter Plan of Treatment Not on file documented as of this encounter Visit Diagnoses Not on filedocumented in this encounter Care Teams Social Sciences Instructor Relationship Specialty Start Date End Date None, None [address] [place] [address] PCP - General 04/11/19 [place], Generic Provider 09/01/20 Shena Lloyd MD [address] [place] [phone] Endocrinology/Diabetes/ Metabolism 12/30/20 Suellen Hurley NP [address] [place] [address] Nurse Practitioner Endocrinology/Diabetes/ Metabolism 03/29/21 documented as of this encounter
--- OUTSIDE RECORDS SUMMARY | 2025-02-13 08:50 | XMS_ITS | Encounter Summary ---
Author Organization [facility] Address [address] [place] [address] Care Team Providers Care Junior Database Administrator Name Role Phone None, None Primary Care Provider Unavailabl e Mychart, Generic Provider Unavailable Shena Joe MD Unavailable [phone] Suellen Hurley NP Unavailable Reason for Visit * Reason Comments Medications Refill Encounter Details Date Type Department Care Team (Late st Contact Info) Description 08/06/2021 Refill [facility] [place] [address] [facility] [place] [address] Suellen Hurley NP [address] [place] [address] Medications Refill Social History Tobacco Use Types Packs/Day Years [...] AM EDT Sexual Orientation Not on file documented as of this encounter Plan of Treatment Not on file documented as of this encounter Visit Diagnoses Diagnosis Joan's disease Chronic lymphocytic thyroiditis Low TSH level Nonspecific abnormal results of thyroid function study documented in this encounter Care Teams Junior Database Administrator Relationship Specialty Start Date End Date None, None [address] [place] [address] [place] [address] PCP - General 04/11/19 Mychart, Generic Provider 09/01/20 Shena Lloyd MD [address] [place] [phone] Endocrinology/Diabetes/ Metabolism 12/30/20 Suellen Hurley NP [address] [place] [address] Nurse Practitioner Endocrinology/Diabetes/ Metabolism 03/29/21 documented as of this encounter
--- OUTSIDE RECORDS SUMMARY | 2025-02-13 08:50 | XMS_ITS | Encounter Summary ---
Author Organization [facility] Address [address] [place] [address] Care Team Providers Care Dynamiter Name Role Phone None, None Primary Care Provider Unavailabl e Mychart, Generic Provider Unavailable Shena Joe MD Unavailable [phone] Suellen Hurley NP Unavailable Reason for Visit * Reason Comments Medications Refill Encounter Details Date Type Department Care Team (Late st Contact Info) Description 04/12/2021 Refill [facility] [place] [address] [facility] [place] [address] Suellen Hurley NP [address] [place] [address] Medications Refill Social History Tobacco [...] study documented in this encounter Care Teams Dynamiter Relationship Specialty Start Date End Date None, None [address] [place] [address] [place] [address] PCP - General 04/11/19 Mychart, Generic Provider 09/01/20 Shena Lloyd MD [address] [place] [phone] Endocrinology/Diabetes/ Metabolism 12/30/20 Suellen Hurley NP [address] [place] [address] Nurse Practitioner Endocrinology/Diabetes/ Metabolism 03/29/21 documented as of this encounter
--- OUTSIDE RECORDS SUMMARY | 2025-02-13 08:50 | XMS_ITS | Encounter Summary ---
Author Organization [facility] Address [address] [place] [address] Care Team Providers Care Seed Mill Superintendent Name Role Phone None, None Primary Care Provider Unavailabl e Mychart, Generic Provider Unavailable Shena Joe MD Unavailable [phone] Suellen Hurley NP Unavailable Reason for Visit * Reason Comments Medications Refill Encounter Details Date Type Department Care Team (Late st Contact Info) Description 10/19/2020 Refill [facility] [place] [address] [facility] 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
--- OUTSIDE RECORDS SUMMARY | 2025-02-13 08:50 | XMS_ITS | Clinical Summary ---
Author Organization [facility] Address [address] [place] [address] Phone Care Team Providers Care Psychiatric Secretary Name Role Phone Unavailable Primary Care Provider Unavailabl e Allergies No known active allergies Medications insulin lispro (HUMALOG) 100 unit/mL SubQ Solution Subcutaneous (Inject under the skin) 3 times daily (before meals). Active TOUJEO MAX U-300 SOLOSTAR 300 unit/mL (3 mL) SubQ Insulin Pen Subcutaneous (Inject under the skin) 30 Units daily. Active Surgical History Surgery Date Site/Laterality Comments ABDOMEN SURGERY hernia Medical History Medical History Date Comments Diabetes mellitus (HCC) Hernia of abdominal cavity Social History Tobacco Use Types Packs/Day Years Used Date Smoking Tobacco: Never Smokeless Tobacco: Never Tobacco Cessation:Counseling Given: Not Answered Alcohol Use Standard Drinks/Week Comments Never 0 (1 standard drink = 0.6 oz pur e alcohol) Sex and Gender Information Value Date Recorded Sex Assigned at Not on file Legal Sex Male 3:28 PM EDT Gender Identity Not on file Sexual Orientation Not on file Obstetrics History Last Filed Vital Signs Vital Sign Reading Time Taken Comments Blood Pressure 97/61 06/21/2023 2:10 AM EST Pulse 51 06/21/2023 2:10 AM EST Temperature 36.7 C (98.1 F) 06/20/2023 10:44 PM EST Respiratory Rate 14 06/21/2023 2:10 AM EST Oxygen Saturation 96% 06/21/2023 12:14 AM EST Inhaled Oxygen Concentration - - Weight 49 kg (108 lb) 06/20/2023 10:44 PM EST Height - - Body Mass Index - - Plan of Treatment Health Maintenance Due Date Last Done Comments Annual Wellness Exam 12/19/2002 HPV (1 - Male 3-dose series) 12/19/2014 DTaP/TDaP/Td (1 - Tdap) 12/19/2018 Hepatitis B Vaccine (1 of 3 - 19+ 3-dose series) 12/19/2018 COVID-19 Vaccine (2023-2 5 season) 2024 Influenza Vaccine (#1) 2025 05/03/2022 Meningococcal B Vaccine Aged Out No l onger eligible based on patient's age to complete this topic Pneumococcal Vaccine 0-49 Aged Out No longer eligible based on patient's age to complete this topic
--- OUTSIDE RECORDS SUMMARY | 2025-02-13 08:50 | XMS_ITS | Clinical Summary ---
Author Organization [facility] Address [address] [place] [address] Care Team Providers Care Tax Professional Name Role Phone Gretchen Angelo APRN Primary Care Provider [phone] Allergies No known active allergies Medications Insulin Lispro (humaLOG) 100 UNIT/ML injection Inject 10 Units under the skin into the appropriate area as directed 3 (Three) Times a Day Before Meals. If you have not been using insulin, start at 2 units with meals for now and titrate up 06/25/20 23 Active glucose blood test strip Use as instructed 300 each 12 06/25/20 23 Active Metoclopramide HCl 15 MG/ACT solutionIndication s:Gastroparesis 15 mg into the nostril(s) as directed by provider 3 (Three) Times a Day Before Meals. 9.8 mL 1 07/12/20 23 Active ondansetron ODT (ZOFRAN-ODT) 4 MG disintegrating tablet Take 1 tablet by mouth Every 8 (Eight) Hours As Needed for Nausea or Vomiting. 01/03/20 24 Active promethazine (PHENERGAN) 25 MG tablet TAKE ONE TABLET BY MOUTH THREE TIMES DAILY NEEDED FOR NAUSEA AND VOMITING 01/03/20 24 Active pantoprazole (PROTONIX) 40 MG EC tabletIndications: Gastroesophageal reflux disease, unspecified whether esophagitis present Take 1 tablet by mouth Daily. 30 tablet 11 01/10/20 24 Active Continuous Glucose Sensor (FreeStyle Poli 3 Plus Sensor)Indications :Type 1 diabetes mellitus with hyperglycemia Use Every 14 (Fourteen) Days. 2 each 08/15/19 25 Active glucose monitor monitoring kit Use 1 each As Needed (per DM plan). Per insurance formulary to match strips 1 each 08/15/19 25 Active BD Pen Needle Sydnie 2nd Gen 32G X 4 MM misc Inject 1 Needle under the skin into the appropriate area as directed Take As Directed. 100 each 08/15/19 25 Active Accu-Chek FastClix Lancets misc Inject 1 Lancet under the skin into the appropriate area as directed Take As Directed. Use as directed 100 each 08/15/19 25 Active Insulin Glargine, 2 Unit Dial, (Toujeo Max SoloStar) 300 UNIT/ML solution pen-injector injection Inject 50 Units under the skin into the appropriate area as directed Every Night. 9 mL 3 08/21/19 25 Active Glucagon 1 MG/0.2ML solution auto-injector Inject 1 mg under the skin into the appropriate area as directed Daily As Needed (severe hypoglycemia). 0.2 mL 5 10/23/19 25 Active Acetone, Urine, Test (Ketone Test) strip 1 each by In Vitro route Daily As Needed (severe hyperglycemia). 100 each 3 10/23/19 25 Active metoprolol succinate XL (TOPROL-XL) 25 MG 24 hr tablet Take 1 tablet by mouth Daily. 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 It's treated with insulin. Esophagitis 06/25/2023 Moderate malnutrition 06/25/2023 Type 1 diabetes mellitus with hyperglycemia 06/15 Overview (07/06/2023): DIAGNOSED WITH TYPE 1 IN 2019 WHEN HE PRESENTED WITH DKA. HE WAS HOSPITALIZED FOR 5 DAYS AND TREATED WITH INSULIN. HAS BEEN ON INSULIN SINCE THEN. CURRENTLY ON TOUJEO AND HUMALOG. HE WAS HOSPITALIZED RECENTLY WITH GASTRIC ISSUES AND HYPERGLYCEMIA. BG CHECKS ARE DONE 3 TIMES PER DAY. HE DOES NOT HAVE A CGM HYPOGLYCEMIA- SELDOM. COMPLICATIONS: HAD RETINOPATHY AT THE TIME OF DIAGNOSIS. HE HAS NOT HAD AN EYE EXAM SINCE 2019 NO NEPHROPATHY NO PERIPHERAL NEUROPATHY BUT THERE IS CONCERN THAT HE MIGHT HAVE DIABETIC GASTROPATHY NO VASCULAR DISEASE NUTRITION: CANNOT KEEP MUCH DOWN. PHYSICAL ACTIVITY..- NOT MUCH ETOH- SELDOM VAPES- USES MARIJUANA OCCASIONAL Assessment & Plan (11/21/2024 3:03 PM EDT): Eyes- way over due Kidneys and feet are fine A1c is so much better. Plan : no heather Assessment & Plan (08/21/2024 3:05 PM EST): Despite the recent dka, his a1cv is the best in a long time. He needs more toujeo but otherwise he is doing his part. We will check on the ilet pump for him Assessment & Plan (05/09/2024 12:07 PM EDT): Diabetes is improving with treatment. Continue current treatment regimen. Discussed ways to avoid symptomatic hypoglycemia. Discussed foot care. Recent hospitalization for DKA due to not having insulin. He has now straightened out insurance issues and not having any problems getting his insulin supply. Asked him to let us know if he runs into this problem again so that we can try to get him some samples. Currently using poli 2 CGM because this is what was refilled at his pharmacy. He does have a poli 3 order on file and we will work on getting this next time. Once he is established on poli 3, can move forward with pursuing the ilet bionic pancreas. He can check with insurance about coverage for this or let us know when he is ready to move forward with it. Difficult to assess insulin needs with CGM data. He will continue to work on administering Toujeo insulin daily and Humalog before meals. Diabetes will be reassessed in 3 months Assessment & Plan (04/16/2024 3:57 PM EDT): He knows to get his eyes examined He is clinically improved. I recommend he look int using the bionic pancreas Assessment & Plan (07/06/2023 5:17 PM EST): Seen as a new patient today. Clearly needs better diabetes control To that end, we placed a poli on him. He will then titrate his lantus to get his fasting bg under control He does not eat enough to really need much prandial insulin His gut is his biggest issue. I don't think this is all gastritis. He almost certainly has gastoparesis and needs reglan. He has been taking oral reglan and then vomitting it up. Will try to get nasal reglan for him. He might need a j- tube for nutrition . Or a referral to the gastric motility clinic at [facility] . Intractable nausea and vomiting 06/23/2023 Encounters Date Type Department Care Team Description 11/21/2024 2:45 PM EDT Office Visit [facility] [phone] Pavan Cruz MD Type 1 diabetes mellitus with hyperglycemia (Primary Dx) 11/21/2024 Travel from Last 3 Months Family History Medical History Relation Name Comments No Known Problems Father No Known Problems Mother Colon cancer Neg Hx Relation Name Status Comments Father Alive Mother Alive Sister Other Social History Tobacco Use Types Packs/Day Years Used Date Smoking Tobacco: Never Passive Smoke Exposure: Never Smokeless Tobacco: Never Tobacco Cessation:Counseling Given: Not Answered Alcohol Use Standard Drinks/Week Comments Not Currently 1 (1 standard drink = 0.6 oz pur e alcohol) [facility] Utilities Answer Date Recorded In the past 12 months has [employer], [employer], oil, or water [employer] threatened to shut off services in your home? No 08/15/2024 AUDIT-C Answer Date Recorded Q1: How often do you have a drink containing alc ohol? Monthly or less 08/14/2024 Q2: How many drinks containi ng alcohol do you have on a typical day when you are drinking? 1 or 2 08/14/2024 Q3: How often do you have si x or more drinks on one occasion? Never 08/14/2024 Overall Financial Resource Strain (CARDIA) Lindae r Date Recorded How hard is it for you to pa y for the very basics like food, housing, medical care, and heating? Not very hard 08/15/2024 [facility] - Occupational Stress Questionnaire Answer Date Recorded Do you feel stress - tense, restless, nervous, or anxious, or unable to sleep at night because your mind is troubled all the time - these days? Not at all 08/15/2024 Exercise Vital Sign Answer Date Recorde d On average, how many days pe r week do you engage in moderate to strenuous exercise (like a brisk walk)? 0 days 08/15/2024 On average, how many minutes do you engage in exercise at this level? 0 min 08/15/2024 Hunger Vital Sign Answer Date Recorded Within the past 12 months, y ou worried that your food would run out before you got the money to buy more. Never true 08/15/19 25 Within the past 12 months, t he food you bought just didn't last and you didn't have money to get more. Never true 08/15/2024 PRAPARE - Transportation Answer Date Re corded In the past 12 months, has l ack of transportation kept you from medical appointments or from getting medications? No 07/18 In the past 12 months, has l ack of transportation kept you from meetings, work, or from getting things needed for daily living? No 08/15/2024 Abuse Screen Answer Date Recorded Feels Unsafe at Home or Work/School no 08/14/2024 Feels Threatened by Someone no 07/18 Does Anyone Try to Keep You From Having Contact with Others or Doing Things Outside Your Home? no 08/14/2024 Physical Signs of Abuse Present no 08/14/2024 Housing Stability Answer Date Recorded Current Living Arrangements home 07/18 Potentially Unsafe Housing Conditions none 08/15/2024 Family and Community Support Answer Keaton e Recorded If for any reason you need h elp with day-to-day activities such as bathing, preparing meals, shopping, managing finances, etc., do you get the help you need? I don't need any help 08/15/2024 How often do you feel lonely or isolated from those around you? Never 08/15/2024 Employment Answer Date Recorded Do you want help finding or keeping work or a job? I do not need or want help 08/15/2024 Disabilities Answer Date Recorded Difficulty Concentrating, Remembering or Making Decisions no 08/14/2024 Difficulty Managing Errands Independently no 08/14/2024 Education Answer Date Recorded Do you want help with school or training? For example, starting or completing job training or getting a high school diploma, GED or equivalent No 08/15/2024 Preferred Language Sierra Leonean 08/15/2024 PHQ-2 Answer Date Recorded Patient Health Questionnaire-2 Score 0 08/15/2024 Sex and Gender Information Value Date Recorded Sex Assigned at Not on file Legal Sex Male 5:11 AM EST Gender Identity Not on file Sexual Orientation Not on file Last Filed Vital Signs Vital Sign Reading Time Taken Comments Blood Pressure 101/68 11/21/2024 2:49 PM EDT Pulse 86 11/21/2024 2:49 PM EDT Temperature 36.6 C (97.9 F) 08/16/2024 12:00 PM EST Respiratory Rate 18 08/16/2024 12:00 PM EST Oxygen Saturation 99% 11/21/2024 2:49 PM EDT Inhaled Oxygen Concentration - - Weight 58.2 kg (128 lb 4.8 oz) 11/21/2024 2:49 P M EDT Height 170.2 cm (5' 7 ) 11/21/2024 2:49 PM EDT Body Mass Index 20.09 11/21/2024 2:49 PM EDT Plan of Treatment Upcoming Encounters Date Type Department Care Team (Late st Contact Info) Description 03/06/2025 3:00 PM EDT Office Visit [facility] [address] [phone] Pavan Cruz MD [address] [facility] [address] Health Maintenance Due Date Last Done Comments DIABETIC EYE EXAM 12/19/2009 DIABETIC FOOT EXAM 12/19/2009 URINE MICROALBUMIN-CREATININ E RATIO (uACR) 12/19/2009 Pneumococcal Vaccine 0-49 (1 of 2 - PCV) 12/19/2018 TDAP/TD VACCINES (2 - Td or Tdap) 02/14/2021 011 ANNUAL PHYSICAL 07/03/2023 HEPATITIS C SCREENING 07/03/2023 COVID-19 Vaccine (2023-2 5 season) 2024 INFLUENZA VACCINE 04/15/2025 05/03/2022 HEMOGLOBIN A1C 05/24/2025 11/21/2024, 07/18, 04/16/2024, Additional history exists Hepatitis B Completed 06/18/2000, 01/14, 1999 Procedures Procedure Name Priority Date/Time Associated Diagnosis Comments POCT GLYCOSYLATED HEMOGLOBIN (HGB A1C) Routine 11/21/2024 2:58 PM EDT Type 1 diabetes mellitus with hyperglycemia POCT GLUCOSE, BLD (NON STRIP) Routine 11/21/2024 2:58 PM EDT Type 1 diabetes mellitus with hyperglycemia from Last 3 Months Results * (ABNORMAL) POC Glucose, Blood (11/21/2024 2:58 PM EDT) Glucose 275(A) 70 - 130 mg/dL Lot Number [id number] Expiration Date 04/21/2025 Blood 11/21/2024 2:58 PM EDT us Pavan Cruz MD POINT OF CARE TEST ORD ERABLES Final Result * (ABNORMAL) POC Glycosylated Hemoglobin (Hb A1C) (11/21/2024 2:58 PM EDT) Hemoglobin A1C 7.0(A) 4.5 - 5.7 % [facility] Lot Number [id number] [facility] Expiration Date 08/01/2026 [facility] Blood 11/21/2024 2:58 PM EDT us Pavan Cruz MD POINT OF CARE TEST ORD ERABLES Final Result [facility]
[address] [place] [id number], [place] [phone] from Last 3 Months Insurance [employer] [place] Advance Directives * CPR (Attempt to Resuscitate) (Latest Code Status on File) Date Activated Date Inactivated Comments 08/15/2024 3:04 PM 08/16/2024 5:21 PM Question Answer Comments Code Status (Patient has no pulse and is not breathing): CPR (Attempt to Resuscitate) Medical Interventions (Patie nt has pulse or is breathing): Full Support * CPR (Attempt to Resuscitate) Date Activated Date Inactivated Comments 06/23/2023 8:39 AM 06/25/2023 12:23 PM Question Answer Comments Code Status (Patient has no pulse and is not breathing): CPR (Attempt to Resuscitate) Medical Interventions (Patie nt has pulse or is breathing): Full Support Level Of Support Discussed With: Patient Care Teams Tax Professional Relationship Specialty Start Date End Date Gretchen Angelo APRN [address] [place] [address] PCP - General Nurse Practitioner 06/25/23
--- OUTSIDE RECORDS SUMMARY | 2025-02-13 08:50 | XMS_ITS | Clinical Summary ---
Author Organization [facility] Address [address] [place] [address], [address] [place] [address] Care Team Providers Care Tea And Spice Supervisor Name Role Phone Unavailable Primary Care Provider Unavailabl e Allergies No known active allergies Medications famotidine (PEPCID) 20 MG tablet Take 1 tablet by mouth 2 times daily 60 tablet 5 9 Active ondansetron (ZOFRAN ODT) 4 MG disintegrating tablet Take 1 tablet by mouth every 8 hours as needed for Nausea or Vomiting 20 tablet 9 Active Social History Tobacco Use Types Packs/Day Years Used Date Smoking Tobacco: Light Smoker Smokeless Tobacco: Never Tobacco Cessation:Ready to Q uit: No; Counseling Given: Yes Alcohol Use Standard Drinks/Week Comments Yes 0 (1 standard drink = 0.6 oz pur e alcohol) Sex and Gender Information Value Date Recorded Sex Assigned at Not on file Legal Sex Male 2:10 PM EDT Gender Identity Not on file Sexual Orientation Not on file Last Filed Vital Signs Vital Sign Reading Time Taken Comments Blood Pressure 119/62 01/30/2019 5:57 PM EDT Pulse 87 01/30/2019 5:57 PM EDT Temperature 37.1 C (98.8 F) 01/30/2019 2:23 PM EDT Respiratory Rate 14 01/30/2019 5:57 PM EDT Oxygen Saturation 98% 01/30/2019 5:57 PM EDT Inhaled Oxygen Concentration - - Weight 55.3 kg (122 lb) 01/30/2019 2:23 PM EDT Height 170.2 cm (5' 7 ) 01/30/2019 2:23 PM EDT Body Mass Index 19.11 01/30/2019 2:23 PM EDT Plan of Treatment Not on file Insurance [employer]
--- OUTSIDE RECORDS SUMMARY | 2025-02-13 08:50 | XMS_ITS | Clinical Summary ---
Author Organization [facility] Address [address] [place] [id number] Care Team Providers [facility] [place] Transportation Worker Name Role Phone Unavailable Primary Care Provider Unavailabl e Source Comments [facility] is fully rolled out with thefollowing exceptions:General Clinical Research [facility] Social History Tobacco Use Types Packs/Day Years Used Date Smoking Tobacco: Never Assessed Sex and Gender Information Value Date Recorded Sex Assigned at Not on file Legal Sex Male 5:13 AM EST Gender Identity Not on file Sexual Orientation Not on file Plan of Treatment Health Maintenance Due Date Last Done Comments MMR IMMUNIZATION (1 of 1 - S tandard series) 12/19/2000 DTAP/Tdap/Td IMMUNIZATION (1 - Tdap) 12/19/2006 VARICELLA IMMUNIZATION (1 of 2 - 13+ 2-dose series) 12/19/2012 HPV IMMUNIZATION (1 - Male 3 -dose series) 12/19/2014 HEPATITIS B IMMUNIZATION (1 of 3 - 19+ 3-dose series) 12/19/2018 COVID-19 Vaccine (1 - 2023-2 5 season) 2024 AMB SEASONAL FLU VACCINE (#1) 03/16/2025 HIB IMMUNIZATION Aged Out No longer e ligible based on patient's age to complete this topic IPV IMMUNIZATION Aged Out No longer e ligible based on patient's age to complete this topic MCV4 IMMUNIZATION Aged Out No longer eligible based on patient's age to complete this topic MENINGOCOCCAL B VACCINE Aged Out No l onger eligible based on patient's age to complete this topic PNEUMOCOCCAL IMMUNIZATION Aged Out No longer eligible based on patient's age to complete this topic Respiratory Syncytial Virus (RSV) <20mo Aged Out No longer eligible b ased on patient's age to complete this topic
--- NOTE | 2025-02-13 08:53 | PC.NURSE ---
I notified Ghislaine in respiratory that a green tube was sent up for a VBG
[2025-02-13 08:55] LABS: Hematocrit 45.0 % (42.0-52.0); Hemoglobin 14.9 g/dL (14.1-18.0); Immature Granulocytes % 1.3 %; Mean Corpuscular HGB Conc 33.1 g/dL (31.8-35.4); Mean Corpuscular Hemoglobin 28.8 pg (27.0-31.2); Mean Corpuscular Volume 86.9 fl (80-94); Nucleated Red Blood Cells % 0 %; Platelet Count 302 K/mm3 (142-424); Red Blood Count 5.18 M/mm3 (4.60-6.20); Red Cell Distribution Width-SD 39.7 fL; White Blood Count 16.0 K/mm3 (4.8-10.8)
--- NOTE | 2025-02-13 08:55 | ED_ITS ---
Discharge Plan Disposition Patient Disposition: Admitted Clinical Impressions Clinical Impression: Nausea & vomiting Discharge ED Provider: Giovanny Carter General Adult HPI General Chief complaint: Nausea/Vomiting/Diarrhea Stated complaint: blood sugar 272, vomiting Time Seen by Provider: 02/13/25 08:37 Mode of Arrival: Wheelchair Source of Information: Patient Description of Symptoms (Recalled from ER Triage Doc. by RN): PT REPORTS NAUSEA, VOMITING AND ABDOMINAL PAIN. PT REPORTS TAKING HIS INSULIN PUMP OFF FOR ABOUT 6- 7 HOURS LAST NIGHT. REPORTS GLUCOSE HAS BEEN AROUND 260'S. History of Present Illness HPI narrative: Barry Joe is a 24-year-old male with a history of type 1 diabetes with insulin pump, hernia repair at 5 years of age who presents to the emergency department for complaints of nonbilious nonbloody vomiting. Patient states that for 6 to 7 hours yesterday, he forgot to charge his insulin pump and was not receiving insulin. His sugar spiked to over 400. He states that he turned his insulin pump back on before he went to sleep. He started to have nausea and vomiting and abdominal pain this morning. He states that he has had increase in urinary frequency. He has been in DKA before and believes he may be in DKA again. He reports he occasionally drinks alcohol and occasionally smokes marijuana, last using marijuana last week. Related Data Home Medications ?Medication ?Instructions ?Recorded ?Confirmed insulin lispro 200 unit/mL (3 mL) 10 - 15 unit SQ AC 0 02/13/25 02/13/25 subcutaneous pen (Humalog KwikPen U-200 Insulin) Previous Rx's ?Medication ?Instructions ?Recorded blood-glucose sensor (FreeStyle #1 ea 08/18/24 Poli 3 Sensor device) pen needle, diabetic 32 gauge x #1,200 ea 10/23/24 insulin lispro 200 unit/mL (3 mL) See Rx Instructions .Route 01/31/25 subcutaneous pen (Humalog KwikPen .COMPLEX #6 mL U-200 Insulin) Allergies Allergy/AdvReac Type Severity Reaction Status Date / Time No Known Allergies Allergy Verified 01/22/25 13:09 [facility] Disclaimer: The information contained in this section may have been updated after the patient was seen, as this information can be updated by other users. Medical History Insulin pump in place Vitamin D deficiency Vitamin B12 deficiency Non compliance with medical treatment Abdominal pain Abdominal pain Diabetes mellitus type 1 Hyperthyroidism Family History Other Cancer Diabetes Hypertension Social History (Updated 02/13/25 @ 13:18 by Isabella Abdi RN) Smoking Status: Current every day smoker tobacco type: e-cigarettes alcohol intake: never current occupational status: employed Travel in the last 8 weeks?: None Have you lived/traveled outside US in past 30 days?: No Contact w/someone who lives/traveled outside US past 30 days?: No Exposure to someone with infectious disease in past 14 days?: No Do you have a fever (greater than 100.4 F or 38 C)?: No Have you tested positive for COVID-19?: No Exposed to someone with COVID-19 in past 14 days?: No Do you have a sore throat?: No Do you have a cough?: No Do you have any weakness?: No Do you have any diarrhea?: No Are you experiencing any unusual bleeding?: No Do you have any muscle aches/pain?: No Do you have any abdominal pain?: No Are you experiencing loss of taste or smell?: No Other Medical History Have you received the Flu Vaccine for this season: No Have you received the Pneumonia Vaccine: No ROS Obtained: Yes Systems reviewed as appropriate & no additional complaints except as documented Physical Exam General General appearance: alert Comment: Ill appearing, actively vomiting Head Head exam: atraumatic Eye Eye exam: Present normal appearance ENT ENT exam: Present normal external ear exam Neck Neck exam: Present full ROM Chest Chest inspection: Present symmetric chest wall rise Respiratory Respiratory exam: Present normal lung sounds bilaterally; Absent respiratory distress, wheezes or stridor Cardiovascular Cardiovascular exam: Present regular rate and normal rhythm Abdominal Exam Abdominal exam: Present soft and tenderness (diffuse); Absent distention or guarding exam: Present deferred Extremities Exam Extremities exam: Present normal inspection Back Exam Back exam: Present normal inspection Neurological Exam Neurological exam: Present alert and oriented X3 Psychiatric Psychiatric exam: Present normal affect Skin Skin exam: Present warm, dry and other (Dry mucous membranes, delayed capillary refill) Medical Decision Making Medical Records Screening: Per USPSTF and CDC recommendations, given the prevalence of disease in our region, it is our hospital?s policy to screen for HIV and viral Hepatitis for all patients aged 18 and over and those with ongoing risk factors. Lui Inquiry Pt receiving controlled substance: No Vital Signs: 02/13/25 08:30 02/13/25 09:30 02/13/25 10:00 Temperature 96.8 F L Temperature Source Temporal Artery Scan Pulse Rate 56 L Pulse Rate [Apical] 60 Respiratory Rate 18 12 Blood Pressure 107/68 L 114/76 Blood Pressure [Left Arm] 129/91 H Blood Pressure Mean [Left Arm] 103 Blood Pressure Source [Left Arm] Automatic Cuff Blood Pressure Position [Left Arm] Sitting 02 Sat by Pulse Oximetry 98 98 98 Oxygen Delivery Method Room Air Room Air Room Air 02/13/25 10:30 02/13/25 11:00 02/13/25 11:30 Temperature Temperature Source Pulse Rate 51 L 54 L 54 L Pulse Rate [Apical] Respiratory Rate 15 18 15 Blood Pressure 108/62 L 116/76 112/74 Blood Pressure [Left Arm] Blood Pressure Mean [Left Arm] Blood Pressure Source [Left Arm] Blood Pressure Position [Left Arm] 02 Sat by Pulse Oximetry 96 98 98 Oxygen Delivery Method Room Air 02/13/25 12:37 Temperature Temperature Source Pulse Rate Pulse Rate [Apical] Respiratory Rate Blood Pressure Blood Pressure [Left Arm] Blood Pressure Mean [Left Arm] Blood Pressure Source [Left Arm] Blood Pressure Position [Left Arm] 02 Sat by Pulse Oximetry 97 Oxygen Delivery Method Room Air Lab Data Lab Results 02/13/25 08:45: WBC 16.0 H, RBC 5.18, Hgb 14.9, Hct 45.0, MCV 86.9, MCH 28.8, MCHC 33.1, RDW 12.5, Plt Count 302, MPV 8.5, Neut % (Auto) 77.9, Lymph % (Auto) 14.5, Leslie % (Auto) 5.2, Eos % (Auto) 0.6, Baso % (Auto) 0.5, Neut # (Auto) 12.4 H, Lymph # (Auto) 2.3, Leslie # (Auto) 0.8, Eos # (Auto) 0.1, Baso # (Auto) 0.1, Sodium 141, Potassium 4.2, Chloride 109 H, Carbon Dioxide 25, Anion Gap 11.2, B UN 26 H, Creatinine 0.90, Estimated Creat Clear 97, Estimated GFR 103, Est GFR ( Amer) 124, Glucose 265 H, Calcium 9.9, Magnesium 1.7, Total Bilirubin 0.5, AST 31, ALT 19, Alkaline Phosphatase 78, Total Protein 7.4 D, Albumin 5.0, Globulin 2.4, Albumin/Globulin Ratio 2.1 H, Lipase 30, Acetone Level None detected 02/13/25 08:54: VBG pH 7.35, VBG pCO2 40.6, VBG pO2 100.2 H, VBG HCO3 21.8 L, VBG Total CO2 23.0, VBG O2 Saturation 97.7 H, VBG Base Excess -3.9 L, VBG Lactic Acid 2.1 H 02/13/25 08:45 02/13/25 08:45 Orders (Tests/Meds): ED MEDICATIONS Generic Name Dose Route Start Last Admin Trade Name Freq PRN Reason Stop Dose Admin Heparin Sodium (Porcine) 5,000 unit 02/13/25 13:00 02/13/25 20:25 Heparin Sodium 5,000 Unit/Ml Vial SUBCUT 03/15/25 12:59 5,000 unit TID MARCELO Administration Sodium Chloride 1,000 mls @ 50 mls/hr 02/13/25 12:45 02/13/25 13:37 Sod Chlor 0.9% 1000ml Bag IV 03/15/25 12:44 50 mls/hr .Q20H MARCELO Administration Sodium Chloride 1,000 mls @ 75 mls/hr 02/13/25 19:30 02/13/25 20:26 Sod Chlor 0.9% 1000ml Bag IV 03/15/25 19:29 Not Given .[id number] MARCELO Insulin Human Lispro 0 unit 02/13/25 21:00 02/13/25 20:29 Humalog 100 Units/Ml 10ml Vial (Ssi) SUBCUT 03/15/25 20:59 2 unit ACHS MARCELO Administration Protocol Promethazine HCl 25 mg 02/13/25 12:36 Promethazine Hcl 25mg/Ml 1ml Vial IV 03/15/25 12:35 Q6HP PRN Nausea And Vomiting Sodium Chloride 10 ml 02/13/25 12:36 Sodium Chloride 0.9% 10ml Flush Syringe IV 03/15/25 12:35 NEEDED PRN Maintain IV Site Sodium Chloride 25 ml 02/13/25 12:36 Sodium Chloride 0.9% 25ml Bag IV 03/15/25 12:35 NEEDED PRN for Use with IV Promethazine Sodium Chloride 10 ml 02/13/25 19:26 Sodium Chloride 0.9% 10ml Flush Syringe IV 03/15/25 19:25 NEEDED PRN Maintain IV Site Discontinued Medications Generic Name Dose Route Start Last Admin Trade Name Renoq PRN Reason Stop Dose Admin Droperidol 2.5 mg 02/13/25 09:17 02/13/25 09:35 Droperidol 5mg/2ml Vial IV 02/13/25 09:18 2.5 mg ONCE ONE Administration Sodium Chloride 1,000 mls @ 999 mls/hr 02/13/25 08:49 02/13/25 09:07 Sod Chlor 0.9% 1000ml Bag IV 02/13/25 09:49 999 mls/hr .Q1H1M ONE Administration Sodium Chloride 1,000 mls @ 999 mls/hr 02/13/25 08:51 02/13/25 10:00 Sod Chlor 0.9% 1000ml Bag IV 02/13/25 09:51 999 mls/hr .Q1H1M ONE Administration Ondansetron HCl 4 mg 02/13/25 08:49 02/13/25 09:07 Ondansetron 4mg/2ml Vial IV 02/13/25 08:50 4 mg ONCE ONE Administration Promethazine HCl 12.5 mg 02/13/25 12:15 02/13/25 12:23 Promethazine Hcl 25mg/Ml 1ml Vial IV 02/13/25 12:16 12.5 mg ONCE ONE Administration Sodium Chloride 25 ml 02/13/25 12:15 02/13/25 12:23 Sodium Chloride 0.9% 25ml Bag IV 02/13/25 12:16 25 ml ONCE ONE Administration ORDERS Category Date Time Status Acetone, Serum (Rapid) Stat Lab 02/13/25 08:45 Completed CBC w/Auto Diff [Complete Blood Count Auto Diff] Stat Lab 02/13/25 08:45 Completed CMP [Comprehensive Metabolic Panel] Stat Lab 02/13/25 08:45 Completed Lipase Stat Lab 02/13/25 08:45 Completed Magnesium Stat Lab 02/13/25 08:45 Completed UA [Urinalysis and Microscopic] Stat Lab 02/13/25 19:12 Completed VBG [Venous Blood Gas] Stat RT 02/13/25 08:54 Completed ECG Data Tracing #1: I reviewed this ECG and interpreted as documented below: Normal sinus rhythm with ventricular rate of 56 bpm. QTc normal at 407. No significant ST elevations or depressions. T wave inversion in aVL that is nonspecific Medical Decision Narrative: Barry Joe is a 24-year-old male with a history of type 1 diabetes with insulin pump, hernia repair at 5 years of age who presents to the emergency department for complaints of nonbilious nonbloody vomiting. Patient states that for 6 to 7 hours yesterday, he forgot to charge his insulin pump and was not receiving insulin. His sugar spiked to over 400. He states that he turned his insulin pump back on before he went to sleep. He started to have nausea and vomiting and abdominal pain this morning. He states that he has had increase in urinary frequency. He has been in DKA before and believes he may be in DKA again. He reports he occasionally drinks alcohol and occasionally smokes marijuana, last using marijuana last week. On arrival, patient is borderline hypotensive with systolic blood pressure of 108, heart rate within normal limits, afebrile, maintaining appropriate oxygen saturation on room air. Physical exam, as stated above, revealed an ill appearing male who is actively vomiting. His vomitus is nonbilious and nonbloody. It appears to be food contents. He appears dehydrated with dry mucous membranes and delayed capillary refill. He does have diffuse abdominal tenderness but no rigidity or peritonitis or distention. Differential diagnosis includes, but is not limited to: DKA, HHS, symptomatic hyperglycemia, viral gastritis, dehydration, HOWIE, electrolyte derangement, metabolic derangement, among others. The most morbid conditions were considered and workup was based on these. Patient was started on 2 L normal saline and given 4 mg IV Zofran. Workup showed leukocytosis of 16, however could represent a leukemoid reaction given patient's significant nausea and vomiting. No anemia. Platelets within normal limits. pH is normal at 7.35, mildly elevated lactic acid of 2.1. Bicarbonate is low at 21.8. Serum acetone is negative. CMP shows normal anion gap of 11.2 and carbon oxide normal at 25. BUN of 26 but normal creatinine. Glucose of 265. Repeat lactate is normal at 1.4. Magnesium normal at 1.7. Liver enzymes within normal limits. Bilirubin normal at 0.5. Lipase normal at 30. Patient unable to urinate yet. Patient continued to have uncontrolled nausea and vomiting here in the emergency department but does not appear to be in DKA. Patient does smoke marijuana and this could be related to cannabis hyperemesis. Will administer 2.5 mg of IV droperidol. Patient's QTc on EKG is within normal limits. On reassessment, patient is still having nausea and vomiting. Will administer IV Phenergan at this time as he has been refractory to all antiemetics up until this point. Given he is continuing to be symptomatic, will discuss patient's case with Dr. Golden at the [facility] for admission. He excepted the patient for admission. Critical Care Critical Care Time Critical Care Time: No
[2025-02-13 09:02] LABS: VBG HCO3 21.8 mmol/L (23-30); VBG PCO2 40.6 mmol/L (35-51); VBG PH 7.35 mmol/L (7.31-7.41); VBG PO2 100.2 mmol/L (28-40)
[2025-02-13 09:03] LABS: Lactate Venous 2.1 mmol/L (0.4-2.0)
[2025-02-13] MEDS: 0.9 % SODIUM CHLORIDE 1000ML 1,000 ML 999 ML IV ×2 (09:07→10:00)
[2025-02-13] MEDS: ONDANSETRON 4MG/2ML VIAL 4 MG IV (09:07)
[2025-02-13 09:08] LABS: Alanine Aminotransferase 19 U/L (12-78); Albumin Level 5.0 g/dl (3.5-5.0); Albumin/Globulin Ratio 2.1 (1.1-1.8); Alkaline Phosphatase 78 U/L (38-126); Anion Gap 11.2 mEq/L (5-15); Aspartate Amino Transferase 31 U/L (17-59); Bilirubin,Total 0.5 mg/dl (0.2-1.3); Blood Urea Nitrogen 26 mg/dl (9-20); Calcium 9.9 mg/dl (8.4-10.2); Carbon Dioxide 25 mmol/L (22.0-30.0); Chloride 109 mmol/L (98-107); Creatinine Clearance Estimated 97 mL/min (50-200); Creatinine,Serum 0.90 mg/dl (0.66-1.25); Estimated Glomerular Filt Rate 103 ml/min (>60); GFR (African American) 124 ML/MIN (>60); Globulin 2.4 g/dL (1.3-3.2); Glucose 265 mg/dl (74-100); Lipase 30 U/L (23-300); Magnesium 1.7 mg/dl (1.6-2.3); Potassium 4.2 mmoL/L (3.5-5.1); Sodium 141 mmol/L (136-145); Total Protein,Serum 7.4 g/dl (6.3-8.2)
[2025-02-13 09:26] LABS: Acetone, Serum (Rapid) None Detected (None Detect)
[2025-02-13] MEDS: droPERidol 5MG/2ML VIAL 2.5 MG IV (09:35)
--- NOTE | 2025-02-13 10:01 | PC.NURSE ---
PT PROVIDED ADDITIONAL WARM BLANKET, NO NEEDS AT THIS TIME
--- NOTE | 2025-02-13 11:08 | PC.NURSE ---
ROUNDED ON PT, UNABLE TO PROVIDE URINE SPECIMEN AT THIS TIME. REPORTS FEELING SOME BETTER. NO NEEDS AT THIS TIME. CALL LIGHT WITHIN REACH
--- NOTE | 2025-02-13 12:15 | PC.NURSE ---
ROUNDED ON PT, REMAINS UNABLE TO VOID. CONTINUES TO VOMIT. MD NOTIFIED
--- NOTE | 2025-02-13 12:16 | PC.NURSE ---
DR WEST SPEAKING WITH HOSPITALIST FOR ADMISSION
--- NOTE | 2025-02-13 12:19 | PC.NURSE ---
Notified HS of the need for a bed for admission
[2025-02-13] MEDS: PROMETHAZINE HCL 25MG/ML 1ML VIAL 12.5 MG IV (12:23)
[2025-02-13] MEDS: SODIUM CHLORIDE 0.9% 25ML BAG 25 ML IV (12:23)
--- NOTE | 2025-02-13 12:29 | HMH.PHAINT1 ---
Pharmacy Intervention Comments: MEDICATION RECONCILIATION COMPLETED ON PATIENT USING EXTERNAL FILL HISTORY FROM PHARMACY AND LIST FROM PCP OFFICE. -BRODY JESUS, GARETTD
--- NOTE | 2025-02-13 12:32 | PC.NURSE ---
REPORT ADDIS DYKES
[2025-02-13 13:02] LABS: Reflex Lactic Add Lactic Reflex
[2025-02-13 13:35] LABS: Lactic Acid Follow Up (RFLX 1) 1.4 mmol/L (0.7-2.1)
[2025-02-13] MEDS: HEPARIN SODIUM 5,000 UNIT/ML VIAL 5000 UNIT SUBCUT ×2 (13:36→20:25)
[2025-02-13] MEDS: 0.9 % SODIUM CHLORIDE 1000ML 1,000 ML 50 ML IV (13:37)
--- NOTE | 2025-02-13 14:25 | PC.NURSE ---
PATIENT ARRIVED TO TO MED/SURG FLOOR. A/OX4, VERY LETHARGIC, RECEIVED PHENERGAN IN ED, DENIES NAUSEA AT TIME OF ARRIVAL TO FLOOR, PATIENT'S FAMILY MEMBER IS AT BEDSIDE.
[2025-02-13 18:31] LABS: POC Glucose,Bedside 155 (70-110)
--- NOTE | 2025-02-13 18:46 | EXP.HP ---
History of Present Illness *Admission Date: 02/13/25 *Reason for visit:: Intractable nausea vomiting *History of present illness: Patient is a 24-year-old male with past medical history of type 1 diabetes mellitus with insulin pump who presents to the hospital due to complaints of vomiting. According to the patient his insulin pump ran out of insulin it has not been delivering insulin and he became concerned that he may be in DKA due to his vomiting so he decided come to the hospital. He has increased urinary frequency. Otherwise denied fever chills diarrhea constipation dysuria on further evaluation patient was found to have leukocytosis. Patient was found to have intractable nausea vomiting and was admitted for further management [facility] Disclaimer: The information contained in this section may have been updated after the patient was seen, as this information can be updated by other users. Medical History Insulin pump in place Vitamin D deficiency Vitamin B12 deficiency Non compliance with medical treatment Abdominal pain Abdominal pain Diabetes mellitus type 1 Hyperthyroidism Family History Other Cancer Diabetes Hypertension Social History (Updated 02/13/25 @ 13:18 by Isabella Abdi RN) Smoking Status: Current every day smoker tobacco type: e-cigarettes alcohol intake: never current occupational status: employed Travel in the last 8 weeks?: None Have you lived/traveled outside [place] in past 30 days?: No Contact w/someone who lives/traveled outside US past 30 days?: No Exposure to someone with infectious disease in past 14 days?: No Do you have a fever (greater than 100.4 F or 38 C)?: No Have you tested positive for COVID-19?: No Exposed to someone with COVID-19 in past 14 days?: No Do you have a sore throat?: No Do you have a cough?: No Do you have any weakness?: No Do you have any diarrhea?: No Are you experiencing any unusual bleeding?: No Do you have any muscle aches/pain?: No Do you have any abdominal pain?: No Are you experiencing loss of taste or smell?: No Other Medical History Have you received the Flu Vaccine for this season: No Have you received the Pneumonia Vaccine: No Review of Systems Review of Systems Review of systems:: pertinent systems reviewed and negative unless documented below Meds Home Medications and Allergies Home Medications ?Medication ?Instructions ?Recorded ?Confirmed ?Type blood-glucose sensor (FreeStyle #1 ea 08/18/24 10/23/24 Rx Poli 3 Sensor device) pen needle, diabetic 32 gauge x #1,200 ea 10/23/24 10/23/24 Rx /32 insulin lispro 200 unit/mL (3 mL) See Rx Instructions .Route 01/31/25 02/13/25 Rx subcutaneous pen (Humalog KwikPen .COMPLEX #6 mL U-200 Insulin) insulin lispro 200 unit/mL (3 mL) 10 - 15 unit SQ AC 02/13/25 02/13/25 History subcutaneous pen (Humalog KwikPen U-200 Insulin) New Prescriptions to Start Prescriptions: Allergies Allergy/AdvReac Type Severity Reaction Status Date / Time No Known Allergies Allergy Verified 01/22/25 13:09 Exam Data for Last 24 hours Vital signs and Labs for Last 24 Hours: Temp Pulse Resp BP Pulse Ox O2 Del Method 98.5 F 64 16 148/76 H 97 Room Air 02/13/25 16:00 02/13/25 16:00 02/13/25 16:00 02/13/25 16:00 02/13/25 16:00 02/13/25 16:12 Laboratory Results - last 24 hr 02/13/25 08:45: WBC 16.0 H, RBC 5.18, Hgb 14.9, Hct 45.0, MCV 86.9, MCH 28.8, MCHC 33.1, RDW 12.5, Plt Count 302, MPV 8.5, Neut % (Auto) 77.9, Lymph % (Auto) 14.5, [place] % (Auto) 5.2, Eos % (Auto) 0.6, Baso % (Auto) 0.5, Neut # (Auto) 12.4 H, Lymph # (Auto) 2.3, [place] # (Auto) 0.8, Eos # (Auto) 0.1, Baso # (Auto) 0.1, Sodium 141, Potassium 4.2, Chloride 109 H, Carbon Dioxide 25, Anion Gap 11.2, BUN 26 H, Creatinine 0.90, Estimated Creat Clear 97, Estimated GFR 103, Est GFR ( Amer) 124, Glucose 265 H, Calcium 9.9, Magnesium 1.7, Total Bilirubin 0.5, AST 31, ALT 19, Alkaline Phosphatase 78, Total Protein 7.4 D, Albumin 5.0, Globulin 2.4, Albumin/Globulin Ratio 2.1 H, Lipase 30, Acetone Level None detected 02/13/25 08:54: VBG pH 7.35, VBG pCO2 40.6, VBG pO2 100.2 H, VBG HCO3 21.8 L, VBG Total CO2 23.0, VBG O2 Saturation 97.7 H, VBG Base Excess -3.9 L, VBG Lactic Acid 2.1 H 02/13/25 13:18: Lactate 1.4 02/13/25 18:24: POC Glucose 155 H I & O for Last 24 hours: Intake & Output 02/10/25 02/11/25 02/12/25 02/13/25 23:59 23:59 23:59 23:59 Weight 55.792 kg Constitutional Constitutional: no acute distress *Routine HEENT Exam Head: Present normocephalic Eye: Present EOMI and PERRL ENT: Present mucous membranes moist *Routine Neck Exam Neck: Present supple; Absent lymphadenopathy *Routine Respiratory Exam Respiratory: Present CTA bilaterally *Routine Cardiovascular Exam Cardiovascular: Present RRR *Routine Abdominal Exam Abdominal: Present soft and normoactive bowel sounds; Absent tenderness *Routine Rectal Exam Rectal:: deferred *Routine Genitalia Exam Genitalia:: deferred *Routine Extremities Exam Extremities: Absent cyanosis, clubbing or edema *Routine Skin Exam Skin: Present warm; Absent rash *Routine Neurological Exam Neurological: Present alert and oriented X3 Assessment and Plan *Assessment and plan (1) Nausea and vomiting in adult: Status: Resolved Category: Medical Code(s): R11.2 - Nausea with vomiting, unspecified (2) Diabetic gastroparesis: Status: Acute Category: Medical Code(s): E11.43 - Type 2 diabetes mellitus with diabetic autonomic (poly)neuropathy; K31.84 - Gastroparesis (3) Diabetes mellitus type 1: Status: Acute Qualifiers: Diabetes mellitus complication status: with other specified complication Qualified Code(s): E10.69 - Type 1 diabetes mellitus with other specified complication Category: Medical Code(s): E10.9 - Type 1 diabetes mellitus without complications Plan Patient is a 24-year-old male with past medical history of type 1 diabetes mellitus with insulin pump who presents to the hospital due to complaints of vomiting. According to the patient his insulin pump ran out of insulin it has not been delivering insulin and he became concerned that he may be in DKA due to his vomiting so he decided come to the hospital. He has increased urinary frequency. Otherwise denied fever chills diarrhea constipation dysuria on further evaluation patient was found to have leukocytosis. 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
[2025-02-13 19:19] LABS: Microscopic, Urine URINE MICROSCOPIC (MICROSCOPIC)
[2025-02-13 19:21] LABS: Bilirubin,Urine Negative (Negative); Color,Urine YELLOW (Yellow); Glucose,Urine (UA) 1+ (Negative); Ketones,Urine 3+ (Negative); Leukocyte Esterase,Urine Negative (Negative); PH,Urine 6.0 (5.0-8.5); Protein,Urine Negative (Negative); Specific Gravity, Urine 1.025 (1.005-1.030); Urobilinogen,Urine 0.2 EU/dl (0.2)
[2025-02-13 19:28] LABS: Bacteria,Urine Trace /lpf
[2025-02-13] MEDS: humaLOG 100 UNITS/ML 10ML VIAL (SSI) SUBCUT (20:29)
[2025-02-13 20:37] LABS: POC Glucose,Bedside 176 (70-110)
[2025-02-13] MEDS: INSULIN GLARGINE 100 UNITS/ML 3ML FLEXPEN 12 UNIT SUBCUT (22:22)
[2025-02-13] MEDS: MAGNESIUM SULFATE IN WATER 2 GM/50 ML PIGGYBACK IV ×2 (22:44→23:31)
[2025-02-14 04:00] VITALS: BP 105/59; PULSE 59; RESP 16; TEMP 36.7; O2SAT 98; BMI 19.5
--- NOTE | 2025-02-14 04:36 | PC.NURSE ---
Pt A&Ox4. Pt on RA. Pt has slept majority of this shift. Pt educated on importance of bringing a refill for his insulin pump. Pt reported his pump to be nearly empty. Pt has had no acute changes. Pt medicated per SEP. Pt not voicing any concerns. Pt resting w/ call light in reach. Family at bedside. POC ongoing.
[2025-02-14 05:15] LABS: POC Glucose,Bedside 161 (70-110)
[2025-02-14] MEDS: humaLOG 100 UNITS/ML 10ML VIAL (SSI) SUBCUT (05:23)
[2025-02-14] MEDS: 0.9 % SODIUM CHLORIDE 1000ML 1,000 ML 75 ML IV (05:24)
[2025-02-14 07:12] LABS: Hematocrit 39.6 % (42.0-52.0); Immature Granulocytes % 0.6 %; Mean Corpuscular HGB Conc 33.6 g/dL (31.8-35.4); Mean Corpuscular Hemoglobin 28.9 pg (27.0-31.2); Mean Corpuscular Volume 86.1 fl (80-94); Nucleated Red Blood Cells % 0 %; Platelet Count 275 K/mm3 (142-424); Red Blood Count 4.60 M/mm3 (4.60-6.20); Red Cell Distribution Width-SD 39.5 fL; White Blood Count 15.4 K/mm3 (4.8-10.8)
[2025-02-14 07:21] LABS: Chloride 105 mmol/L (98-107); Sodium 136 mmol/L (136-145)
[2025-02-14 07:22] LABS: Potassium 3.5 mmoL/L (3.5-5.1)
[2025-02-14 07:25] LABS: Anion Gap 9.5 mEq/L (5-15); Blood Urea Nitrogen 22 mg/dl (9-20); Calcium 8.6 mg/dl (8.4-10.2); Carbon Dioxide 25 mmol/L (22.0-30.0); Creatinine Clearance Estimated 129 mL/min (50-200); Creatinine,Serum 0.70 mg/dl (0.66-1.25); Estimated Glomerular Filt Rate 137 ml/min (>60); GFR (African American) 166 ML/MIN (>60); Glucose 174 mg/dl (74-100)
[2025-02-14 07:47] LABS: Hemoglobin 13.4 g/dL (14.1-18.0)
[2025-02-14 08:00] VITALS: BP 118/73; PULSE 96; RESP 18; TEMP 36.8; O2SAT 100; O2SAT 97
--- NOTE | 2025-02-14 09:54 | P.DS_ITS ---
General Admission date:: 02/13/25 Discharge date: 02/14/25 HPI HPI HPI: Patient is a 24-year-old male with past medical history of type 1 diabetes mellitus with insulin pump who presents to the hospital due to complaints of vomiting. According to the patient his insulin pump ran out of insulin it has not been delivering insulin and he became concerned that he may be in DKA due to his vomiting so he decided come to the hospital. He has increased urinary frequency. Otherwise denied fever chills diarrhea constipation dysuria on further evaluation patient was found to have leukocytosis. Patient was found to have intractable nausea vomiting and was admitted for further management Hospital Course Hospital Course Hospital Course: Patient is a 24-year-old male with past medical history of type 1 diabetes mellitus with insulin pump who presents to the hospital due to complaints of vomiting. According to the patient his insulin pump ran out of insulin it has not been delivering insulin and he became concerned that he may be in DKA due to his vomiting so he decided come to the hospital. He has increased urinary frequency. Otherwise denied fever chills diarrhea constipation dysuria on further evaluation patient was found to have leukocytosis. Patient was found to have intractable nausea vomiting and was admitted for further management. Intractable nausea vomiting - resolved, ok to dc from medical standpoint Exam Data for Last 24 hours Vital signs and Labs for Last 24 Hours: Temp Pulse Resp BP Pulse Ox O2 Del Method 98.3 F 96 H 18 118/73 97 Room Air 02/14/25 08:00 02/14/25 08:00 02/14/25 08:00 02/14/25 08:00 02/14/25 08:00 02/14/25 08:00 Laboratory Results - last 24 hr 02/13/25 13:18: Lactate 1.4 02/13/25 18:24: POC Glucose 155 H 02/13/25 19:12: Urine Color Yellow, Urine Appearance Clear, Urine pH 6.0, Ur Specific [place] 1.025, Urine Protein Negative, Urine Glucose (UA) 1+, Urine Ketones 3+, Urine Blood Negative, Urine Nitrate Negative, Urine Bilirubin Negative, Urine Urobilinogen 0.2, Ur Leukocyte Esterase Negative, Urine RBC None , Urine WBC None, Ur Squamous Epith Cells None, Urine Bacteria Trace 02/13/25 20:26: POC Glucose 176 H 02/14/25 05:08: POC Glucose 161 H 02/14/25 06:35: WBC 15.4 H, RBC 4.60, Hgb 13.4 L D, Hct 39.6 L, MCV 86.1, MCH 2 8.9, MCHC 33.6, RDW 12.5, Plt Count 275, MPV 8.7, Neut % (Auto) 76.8, Lymph % (Auto) 15.1, [place] % (Auto) 7.1, Eos % (Auto) 0.1, Baso % (Auto) 0.3, Neut # (Auto) 11.9 H, Lymph # (Auto) 2.3, [place] # (Auto) 1.1 H, Eos # (Auto) 0.0, Baso # (Auto) 0.0, Sodium 136, Potassium 3.5, Chloride 105, Carbon Dioxide 25, Anion Gap 9.5, BUN 22 H, Creatinine 0.70 D, Estimated Creat Clear 129, Estimated GFR 137, Est GFR ( Amer) 166 D, Glucose 174 H D, Calcium 8.6 I & O for Last 24 hours: Intake & Output 02/11/25 02/12/25 02/13/25 02/14/25 23:59 23:59 23:59 23:59 Intake Total 300 / 300 Output Total 0 / 0 0 / 0 Balance 0 / 300 300 / 300 Weight 55.792 kg 56.336 kg Constitutional Constitutional: no acute distress *Routine HEENT Exam Head: Present normocephalic Eye: Present EOMI and PERRL ENT: Present mucous membranes moist *Routine Neck Exam Neck: Present supple; Absent lymphadenopathy *Routine Respiratory Exam Respiratory: Present CTA bilaterally *Routine Cardiovascular Exam Cardiovascular: Present RRR *Routine Abdominal Exam Abdominal: Present soft and normoactive bowel sounds; Absent tenderness *Routine Extremities Exam Extremities: Absent cyanosis, clubbing or edema *Routine Skin Exam Skin: Present warm; Absent rash *Routine Neurological Exam Neurological: Present alert and oriented X3 Results Data Completed and Pending Labs on day of discharge: Labs from last 24 hours 02/14/25 02/14/25 02/13/25 06:35 05:08 20:26 WBC 15.4 H RBC 4.60 Hgb 13.4 L D Hct 39.6 L MCV 86.1 MCH 28.9 MCHC 33.6 RDW 12.5 Plt Count 275 MPV 8.7 Neut % (Auto) 76.8 Lymph % (Auto) 15.1 [place] % (Auto) 7.1 Eos % (Auto) 0.1 Baso % (Auto) 0.3 Neut # (Auto) 11.9 H Lymph # (Auto) 2.3 [place] # (Auto) 1.1 H Eos # (Auto) 0.0 Baso # (Auto) 0.0 Sodium 136 Potassium 3.5 Chloride 105 Carbon Dioxide 25 Anion Gap 9.5 BUN 22 H Creatinine 0.70 D Estimated Creat Clear 129 Estimated GFR 137 Est GFR ( Amer) 166 D Glucose 174 H D POC Glucose 161 H 176 H Lactate Calcium 8.6 Urine Color Urine Appearance Urine pH Ur Specific [place] Urine Protein Urine Glucose (UA) Urine Ketones Urine Blood Urine Nitrate Urine Bilirubin Urine Urobilinogen Ur Leukocyte Esterase Urine RBC Urine WBC Ur Squamous Epith Cells Urine Bacteria 02/13/25 02/13/25 02/13/25 19:12 18:24 13:18 WBC RBC Hgb Hct MCV MCH MCHC RDW Plt Count MPV Neut % (Auto) Lymph % (Auto) [place] % (Auto) Eos % (Auto) Baso % (Auto) Neut # (Auto) Lymph # (Auto) [place] # (Auto) Eos # (Auto) Baso # (Auto) Sodium Potassium Chloride Carbon Dioxide Anion Gap BUN Creatinine Estimated Creat Clear Estimated GFR Est GFR ( Amer) Glucose POC Glucose 155 H Lactate 1.4 Calcium Urine Color Yellow Urine Appearance Clear Urine pH 6.0 Ur Specific [place] 1.025 Urine Protein Negative Urine Glucose (UA) 1+ Urine Ketones 3+ Urine Blood Negative Urine Nitrate Negative Urine Bilirubin Negative Urine Urobilinogen 0.2 Ur Leukocyte Esterase Negative Urine RBC None Urine WBC None Ur Squamous Epith Cells None Urine Bacteria Trace DS: Diagnosis Discharge Diagnosis (1) Nausea and vomiting in adult: Status: Resolved Code(s): R11.2 - Nausea with vomiting, unspecified (2) Diabetic gastroparesis: Status: Acute Code(s): E11.43 - Type 2 diabetes mellitus with diabetic autonomic (poly)neuropathy; K31.84 - Gastroparesis (3) Diabetes mellitus type 1: Status: Acute Code(s): E10.9 - Type 1 diabetes mellitus without complications Qualifiers: Diabetes mellitus complication status: with other specified complication Qualified Code(s): E10.69 - Type 1 diabetes mellitus with other specified complication Meds Home Medications and Allergies Home Medications ?Medication ?Instructions ?Recorded ?Confirmed ?Type blood-glucose sensor (FreeStyle #1 ea 08/18/24 5 Rx Poli 3 Sensor device) pen needle, diabetic 32 gauge x #1,200 ea 10/23/2405/09 Rx 5/32 insulin lispro 200 unit/mL (3 mL) See Rx Instructions .Route 01/31/25 02/13/25 Rx subcutaneous pen (Humalog KwikPen .COMPLEX #6 mL U-200 Insulin) insulin lispro 200 unit/mL (3 mL) 10 - 15 unit SQ AC 0 02/13/25 02/13/25 History subcutaneous pen (Humalog KwikPen U-200 Insulin) New Prescriptions to Start Prescriptions: Allergies Allergy/AdvReac Type Severity Reaction Status Date / Time No Known Allergies Allergy Verified 01/22/25 13:09 Discharge Plan Disposition Patient Disposition: Home, Self-Care Condition: Good Follow up Plan Prescriptions/Medication Reconciliation: Continued (DME) FreeStyle Poli 3 Sensor Device See Rx Instructions .Route Qty: 1 11RF Rx Instructions: As directed (DME) pen needle, diabetic 32 gauge x 5/32 needle See Rx Instructions .ROUTE .MEDSUPPLY Qty: 1200 1RF Rx Instructions: As directed Humalog KwikPen Insulin 200 unit/mL (3 mL) insulin pen See Rx Instructions .ROUTE .COMPLEX Qty: 6 2RF Rx Instructions: use as directed to refill insulin pump; Humalog KwikPen Insulin 200 unit/mL (3 mL) insulin pen 10 - 15 unit SQ AC Patient Comments: ADMINISTER 10 TO 15 UNITS SUBCUTANEOUSLY 3 TIMES A DAY BEFORE A MEAL PER SLIDING SCALE Problem Reconciliation Problems Reviewed?: Yes Patient Discharge Instructions ACTIVITY: Continue current activity DIET: continue same diet Patient Instructions: DI for Diabetes Type 1 -- Adult, DI for Nausea -- Adult, DI for Vomiting -- Adult, DI for Gastroparesis Print Language: [place] Providers Primary Care Provider: Gretchen Angelo Provider: Gabrielle Golden Attending Provider: Gabrielle Golden
--- NOTE | 2025-02-17 10:49 | SW/DCPLANNER ---
patient was readmitted back into the hospital. I will follow up once he is discharged from the hospital. Geneva Larkin
== END 2025-02-14 10:35 | disposition home or self-care (01) ==
LOC: ER 09:31 → 2ND 12:28
PROVIDERS: Admitting Provider Internal Medicine; Emergency Provider Student in an Organized Health Care Education/Training Program; PCP Nurse Practitioner; Visit Provider Internal Medicine
DX: E10.43 Type 1 diabetes mellitus with diabetic autonomic (poly)neuropathy (principal); K31.84 Gastroparesis; D72.829 Elevated white blood cell count, unspecified; R00.1 Bradycardia, unspecified; R35.0 Frequency of micturition; F17.290 Nicotine dependence, other tobacco product, uncomplicated; Z96.41 Presence of insulin pump (external) (internal); Z83.3 Family history of diabetes mellitus
CPT/HCPCS: 36415; 80048; 80053; 81001; 82009; 82803; 82962; 83605; 83690; 83735; 85025; 93005; 96361; 96365; 96375; 99285; G0378; J1644; J1790; J2405; J2550; J3475; J7030

== ENCOUNTER 2025-02-14 17:39 | Inpatient (IN) | payer OTHER, SELFPAY ==
--- OUTSIDE RECORDS SUMMARY | 2004-02-15 | XMS_ITS | Encounter Summary ---
Author Organization [facility] Address [address] [place] [address] Care Team Providers Care Supervisor Kosher Dietary Service Name Role Phone Unavailable Primary Care Provider Unavailabl e Encounter Details Date Type Department Care Team (Late st Contact Info) Description 02/15/2004 Hospital Encounter [facility] Division of Pediatric Surgery [address] [place] [phone] Social History Tobacco Use Types Packs/Day [...]
--- OUTSIDE RECORDS SUMMARY | 2004-02-15 | XMS_ITS | Encounter Summary ---
Author Organization [facility] Address [address] [place] [address] Care Team Providers Care Loan Processing Supervisor Name Role Phone Unavailable Primary Care Provider Unavailabl e Encounter Details Date Type Department Care Team (Late st Contact Info) Description 02/15/2004 Hospital Encounter [facility] Division of Pediatric Surgery [address] [place] [phone] Social History Tobacco Use Types Packs/Day [...]
--- NOTE | 2025-02-13 12:29 | P.CONPHA_ITS ---
Pharmacy Intervention Comments: MEDICATION RECONCILIATION COMPLETED ON PATIENT USING EXTERNAL FILL HISTORY FROM PHARMACY AND LIST FROM PCP OFFICE. -BRODY JESUS, GARETTD
--- NOTE | 2025-02-13 18:46 | P.HP_ITS ---
History of Present Illness *Admission Date: 02/13/25 *Reason for visit:: Intractable nausea vomiting *History of present illness: Patient is a 24-year-old male with past medical history of type 1 diabetes mellitus with insulin pump who presents to the hospital due to complaints of vomiting. According to the patient his insulin pump ran out of insulin it has not been delivering insulin and he became concerned that he may be in DKA due to his vomiting so he decided come to the hospital. He has increased urinary frequency. Otherwise denied fever chills diarrhea constipation dysuria on further evaluation patient was found to have leukocytosis. Patient was found to have intractable nausea vomiting and was admitted for further management [facility] Disclaimer: The information contained in this section may have been updated after the patient was seen, as this information can be updated by other users. Medical History Insulin pump in place Vitamin D deficiency Vitamin B12 deficiency Non compliance with medical treatment Abdominal pain Abdominal pain Diabetes mellitus type 1 Hyperthyroidism Family History Other Cancer Diabetes Hypertension Social History (Updated 02/13/25 @ 13:18 by Isabella Abdi RN) Smoking Status: Current every day smoker tobacco type: e-cigarettes alcohol intake: never current occupational status: employed Travel in the last 8 weeks?: None Have you lived/traveled outside US in past 30 days?: No Contact w/someone who lives/traveled outside US past 30 days?: No Exposure to someone with infectious disease in past 14 days?: No Do you have a fever (greater than 100.4 F or 38 C)?: No Have you tested positive for COVID-19?: No Exposed to someone with COVID-19 in past 14 days?: No Do you have a sore throat?: No Do you have a cough?: No Do you have any weakness?: No Do you have any diarrhea?: No Are you experiencing any unusual bleeding?: No Do you have any muscle aches/pain?: No Do you have any abdominal pain?: No Are you experiencing loss of taste or smell?: No Other Medical History Have you received the Flu Vaccine for this season: No Have you received the Pneumonia Vaccine: No Review of Systems Review of Systems Review of systems:: pertinent systems reviewed and negative unless documented below Meds Home Medications and Allergies Home Medications ?Medication ?Instructions ?Recorded ?Confirmed ?Type blood-glucose sensor (FreeStyle #1 ea 08/18/24 5 Rx Poli 3 Sensor device) pen needle, diabetic 32 gauge x #1,200 ea 10/23/2405/09 Rx /32 insulin lispro 200 unit/mL (3 mL) See Rx Instructions .Route 01/31/25 02/13/25 Rx subcutaneous pen (Humalog KwikPen .COMPLEX #6 mL U-200 Insulin) insulin lispro 200 unit/mL (3 mL) 10 - 15 unit SQ AC 0 02/13/25 02/13/25 History subcutaneous pen (Humalog KwikPen U-200 Insulin) New Prescriptions to Start Prescriptions: Allergies Allergy/AdvReac Type Severity Reaction Status Date / Time No Known Allergies Allergy Verified 01/22/25 13:09 Exam Data for Last 24 hours Vital signs and Labs for Last 24 Hours: Temp Pulse Resp BP Pulse Ox O2 Del Method 98.5 F 64 16 148/76 H 97 Room Air 02/13/25 16:00 02/13/25 16:00 02/13/25 16:00 02/13/25 16:00 02/13/25 16:00 02/13/25 16:12 Laboratory Results - last 24 hr 02/13/25 08:45: WBC 16.0 H, RBC 5.18, Hgb 14.9, Hct 45.0, MCV 86.9, MCH 28.8, MCHC 33.1, RDW 12.5, Plt Count 302, MPV 8.5, Neut % (Auto) 77.9, Lymph % (Auto) 14.5, Grand % (Auto) 5.2, Eos % (Auto) 0.6, Baso % (Auto) 0.5, Neut # (Auto) 12.4 H, Lymph # (Auto) 2.3, Grand # (Auto) 0.8, Eos # (Auto) 0.1, Baso # (Auto) 0.1, Sodium 141, Potassium 4.2, Chloride 109 H, Carbon Dioxide 25, Anion Gap 11.2, BUN 26 H, Creatinine 0.90, Estimated Creat Clear 97, Estimated GFR 103, Est GFR ( Amer) 124, Glucose 265 H, Calcium 9.9, Magnesium 1.7, Total Bilirubin 0.5, AST 31, ALT 19, Alkaline Phosphatase 78, Total Protein 7.4 D, Albumin 5.0, Globulin 2.4, Albumin/Globulin Ratio 2.1 H, Lipase 30, Acetone Level None detected 02/13/25 08:54: VBG pH 7.35, VBG pCO2 40.6, VBG pO2 100.2 H, VBG HCO3 21.8 L, VBG Total CO2 23.0, VBG O2 Saturation 97.7 H, VBG Base Excess -3.9 L, VBG Lactic Acid 2.1 H 02/13/25 13:18: Lactate 1.4 02/13/25 18:24: POC Glucose 155 H I & O for Last 24 hours: Intake & Output 02/10/25 02/11/25 02/12/25 02/13/25 23:59 23:59 23:59 23:59 Weight 55.792 kg Constitutional Constitutional: no acute distress *Routine HEENT Exam Head: Present normocephalic Eye: Present EOMI and PERRL ENT: Present mucous membranes moist *Routine Neck Exam Neck: Present supple; Absent lymphadenopathy *Routine Respiratory Exam Respiratory: Present CTA bilaterally *Routine Cardiovascular Exam Cardiovascular: Present RRR *Routine Abdominal Exam Abdominal: Present soft and normoactive bowel sounds; Absent tenderness *Routine Rectal Exam Rectal:: deferred *Routine Genitalia Exam Genitalia:: deferred *Routine Extremities Exam Extremities: Absent cyanosis, clubbing or edema *Routine Skin Exam Skin: Present warm; Absent rash *Routine Neurological Exam Neurological: Present alert and oriented X3 Assessment and Plan *Assessment and plan (1) Nausea and vomiting in adult: Status: Resolved Category: Medical Code(s): R11.2 - Nausea with vomiting, unspecified (2) Diabetic gastroparesis: Status: Acute Category: Medical Code(s): E11.43 - Type 2 diabetes mellitus with diabetic autonomic (poly)neuropathy; K31.84 - Gastroparesis (3) Diabetes mellitus type 1: Status: Acute Qualifiers: Diabetes mellitus complication status: with other specified complication Qualified Code(s): E10.69 - Type 1 diabetes mellitus with other specified complication Category: Medical Code(s): E10.9 - Type 1 diabetes mellitus without complications Plan Patient is a 24-year-old male with past medical history of type 1 diabetes mellitus with insulin pump who presents to the hospital due to complaints of vomiting. According to the patient his insulin pump ran out of insulin it has not been delivering insulin and he became concerned that he may be in DKA due to his vomiting so he decided come to the hospital. He has increased urinary frequency. Otherwise denied fever chills diarrhea constipation dysuria on further evaluation patient was found to have leukocytosis. 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
--- NOTE | 2025-02-14 09:54 | P.DS_ITS ---
General Admission date:: 02/13/25 Discharge date: 02/14/25 HPI HPI HPI: Patient is a 24-year-old male with past medical history of type 1 diabetes mellitus with insulin pump who presents to the hospital due to complaints of vomiting. According to the patient his insulin pump ran out of insulin it has not been delivering insulin and he became concerned that he may be in DKA due to his vomiting so he decided come to the hospital. He has increased urinary frequency. Otherwise denied fever chills diarrhea constipation dysuria on further evaluation patient was found to have leukocytosis. Patient was found to have intractable nausea vomiting and was admitted for further management Hospital Course Hospital Course Hospital Course: Patient is a 24-year-old male with past medical history of type 1 diabetes mellitus with insulin pump who presents to the hospital due to complaints of vomiting. According to the patient his insulin pump ran out of insulin it has not been delivering insulin and he became concerned that he may be in DKA due to his vomiting so he decided come to the hospital. He has increased urinary frequency. Otherwise denied fever chills diarrhea constipation dysuria on further evaluation patient was found to have leukocytosis. Patient was found to have intractable nausea vomiting and was admitted for further management. Intractable nausea vomiting - resolved, ok to dc from medical standpoint Exam Data for Last 24 hours Vital signs and Labs for Last 24 Hours: Temp Pulse Resp BP Pulse Ox O2 Del Method 98.3 F 96 H 18 118/73 97 Room Air 02/14/25 08:00 02/14/25 08:00 02/14/25 08:00 02/14/25 08:00 02/14/25 08:00 02/14/25 08:00 Laboratory Results - last 24 hr 02/13/25 13:18: Lactate 1.4 02/13/25 18:24: POC Glucose 155 H 02/13/25 19:12: Urine Color Yellow, Urine Appearance Clear, Urine pH 6.0, Ur Specific [place] 1.025, Urine Protein Negative, Urine Glucose (UA) 1+, Urine Ketones 3+, Urine Blood Negative, Urine Nitrate Negative, Urine Bilirubin Negative, Urine Urobilinogen 0.2, Ur Leukocyte Esterase Negative, Urine RBC None , Urine WBC None, Ur Squamous Epith Cells None, Urine Bacteria Trace 02/13/25 20:26: POC Glucose 176 H 02/14/25 05:08: POC Glucose 161 H 02/14/25 06:35: WBC 15.4 H, RBC 4.60, Hgb 13.4 L D, Hct 39.6 L, MCV 86.1, MCH 2 8.9, MCHC 33.6, RDW 12.5, Plt Count 275, MPV 8.7, Neut % (Auto) 76.8, Lymph % (Auto) 15.1, [place] % (Auto) 7.1, Eos % (Auto) 0.1, Baso % (Auto) 0.3, Neut # (Auto) 11.9 H, Lymph # (Auto) 2.3, [place] # (Auto) 1.1 H, Eos # (Auto) 0.0, Baso # (Auto) 0.0, Sodium 136, Potassium 3.5, Chloride 105, Carbon Dioxide 25, Anion Gap 9.5, BUN 22 H, Creatinine 0.70 D, Estimated Creat Clear 129, Estimated GFR 137, Est GFR ( Amer) 166 D, Glucose 174 H D, Calcium 8.6 I & O for Last 24 hours: Intake & Output 02/11/25 02/12/25 02/13/25 02/14/25 23:59 23:59 23:59 23:59 Intake Total 300 / 300 Output Total 0 / 0 0 / 0 Balance 0 / 300 300 / 300 Weight 55.792 kg 56.336 kg Constitutional Constitutional: no acute distress *Routine HEENT Exam Head: Present normocephalic Eye: Present EOMI and PERRL ENT: Present mucous membranes moist *Routine Neck Exam Neck: Present supple; Absent lymphadenopathy *Routine Respiratory Exam Respiratory: Present CTA bilaterally *Routine Cardiovascular Exam Cardiovascular: Present RRR *Routine Abdominal Exam Abdominal: Present soft and normoactive bowel sounds; Absent tenderness *Routine Extremities Exam Extremities: Absent cyanosis, clubbing or edema *Routine Skin Exam Skin: Present warm; Absent rash *Routine Neurological Exam Neurological: Present alert and oriented X3 Results Data Completed and Pending Labs on day of discharge: Labs from last 24 hours 02/14/25 02/14/25 02/13/25 06:35 05:08 20:26 WBC 15.4 H RBC 4.60 Hgb 13.4 L D Hct 39.6 L MCV 86.1 MCH 28.9 MCHC 33.6 RDW 12.5 Plt Count 275 MPV 8.7 Neut % (Auto) 76.8 Lymph % (Auto) 15.1 [place] % (Auto) 7.1 Eos % (Auto) 0.1 Baso % (Auto) 0.3 Neut # (Auto) 11.9 H Lymph # (Auto) 2.3 [place] # (Auto) 1.1 H Eos # (Auto) 0.0 Baso # (Auto) 0.0 Sodium 136 Potassium 3.5 Chloride 105 Carbon Dioxide 25 Anion Gap 9.5 BUN 22 H Creatinine 0.70 D Estimated Creat Clear 129 Estimated GFR 137 Est GFR ( Amer) 166 D Glucose 174 H D POC Glucose 161 H 176 H Lactate Calcium 8.6 Urine Color Urine Appearance Urine pH Ur Specific [place] Urine Protein Urine Glucose (UA) Urine Ketones Urine Blood Urine Nitrate Urine Bilirubin Urine Urobilinogen Ur Leukocyte Esterase Urine RBC Urine WBC Ur Squamous Epith Cells Urine Bacteria 02/13/25 02/13/25 02/13/25 19:12 18:24 13:18 WBC RBC Hgb Hct MCV MCH MCHC RDW Plt Count MPV Neut % (Auto) Lymph % (Auto) [place] % (Auto) Eos % (Auto) Baso % (Auto) Neut # (Auto) Lymph # (Auto) [place] # (Auto) Eos # (Auto) Baso # (Auto) Sodium Potassium Chloride Carbon Dioxide Anion Gap BUN Creatinine Estimated Creat Clear Estimated GFR Est GFR ( Amer) Glucose POC Glucose 155 H Lactate 1.4 Calcium Urine Color Yellow Urine Appearance Clear Urine pH 6.0 Ur Specific [place] 1.025 Urine Protein Negative Urine Glucose (UA) 1+ Urine Ketones 3+ Urine Blood Negative Urine Nitrate Negative Urine Bilirubin Negative Urine Urobilinogen 0.2 Ur Leukocyte Esterase Negative Urine RBC None Urine WBC None Ur Squamous Epith Cells None Urine Bacteria Trace DS: Diagnosis Discharge Diagnosis (1) Nausea and vomiting in adult: Status: Resolved Code(s): R11.2 - Nausea with vomiting, unspecified (2) Diabetic gastroparesis: Status: Acute Code(s): E11.43 - Type 2 diabetes mellitus with diabetic autonomic (poly)neuropathy; K31.84 - Gastroparesis (3) Diabetes mellitus type 1: Status: Acute Code(s): E10.9 - Type 1 diabetes mellitus without complications Qualifiers: Diabetes mellitus complication status: with other specified complication Qualified Code(s): E10.69 - Type 1 diabetes mellitus with other specified complication Meds Home Medications and Allergies Home Medications ?Medication ?Instructions ?Recorded ?Confirmed ?Type blood-glucose sensor (FreeStyle #1 ea 08/18/24 5 Rx Poli 3 Sensor device) pen needle, diabetic 32 gauge x #1,200 ea 10/23/2405/09 Rx 5/32 insulin lispro 200 unit/mL (3 mL) See Rx Instructions .Route 01/31/25 02/13/25 Rx subcutaneous pen (Humalog KwikPen .COMPLEX #6 mL U-200 Insulin) insulin lispro 200 unit/mL (3 mL) 10 - 15 unit SQ AC 0 02/13/25 02/13/25 History subcutaneous pen (Humalog KwikPen U-200 Insulin) New Prescriptions to Start Prescriptions: Allergies Allergy/AdvReac Type Severity Reaction Status Date / Time No Known Allergies Allergy Verified 01/22/25 13:09 Discharge Plan Disposition Patient Disposition: Home, Self-Care Condition: Good Follow up Plan Prescriptions/Medication Reconciliation: Continued (DME) FreeStyle Poli 3 Sensor Device See Rx Instructions .Route Qty: 1 11RF Rx Instructions: As directed (DME) pen needle, diabetic 32 gauge x 5/32 needle See Rx Instructions .ROUTE .MEDSUPPLY Qty: 1200 1RF Rx Instructions: As directed Humalog KwikPen Insulin 200 unit/mL (3 mL) insulin pen See Rx Instructions .ROUTE .COMPLEX Qty: 6 2RF Rx Instructions: use as directed to refill insulin pump; Humalog KwikPen Insulin 200 unit/mL (3 mL) insulin pen 10 - 15 unit SQ AC Patient Comments: ADMINISTER 10 TO 15 UNITS SUBCUTANEOUSLY 3 TIMES A DAY BEFORE A MEAL PER SLIDING SCALE Problem Reconciliation Problems Reviewed?: Yes Patient Discharge Instructions ACTIVITY: Continue current activity DIET: continue same diet Patient Instructions: DI for Diabetes Type 1 -- Adult, DI for Nausea -- Adult, DI for Vomiting -- Adult, DI for Gastroparesis Print Language: [place]in Providers Primary Care Provider: Gretchen Angelo Provider: Gabrielle Golden Attending Provider: Gabrielle Golden
[2025-02-14 17:51] VITALS: BP 135/97; PULSE 65; RESP 16; TEMP 36.9; O2SAT 99; BMI 18.8
--- OUTSIDE RECORDS SUMMARY | 2025-02-14 17:52 | XMS_ITS | Clinical Summary ---
Author Organization [facility] Address [address] [place] [id number] Care Team Providers Care Clinical Aide Name Role Phone Unavailable Primary Care Provider Unavailabl e Source Comments [facility] is fully rolled out with thefollowing exceptions:General Clinical Research [facility] Social History Tobacco Use Types Packs/Day [...]
--- OUTSIDE RECORDS SUMMARY | 2025-02-14 17:52 | XMS_ITS | Clinical Summary ---
Author Organization [facility] Address [address] [place] [address] Phone Care Team Providers Care Type Copyist Name Role Phone Unavailable Primary Care Provider [...]
--- OUTSIDE RECORDS SUMMARY | 2025-02-14 17:52 | XMS_ITS | Encounter Summary ---
Author Organization [facility] Address [address] [place] [address] Care Team Providers Care Autocutter Name Role Phone None, None Primary Care Provider Unavailabl e Mychart, Generic Provider Unavailable Shena Joe MD Unavailable [phone] Suellen Hurley NP Unavailable Reason for Visit * Reason Comments Medications Refill Encounter Details Date Type Department Care Team (Late st Contact Info) Description 04/12/2021 Refill [facility] [address] [facility] [place] [address] Suellen Hurley NP [address] [place] [address] Medications Refill Social History Tobacco [...] study documented in this encounter Care Teams Autocutter Relationship Specialty Start Date End Date None, None [address] [place] [address] [place] [address] PCP - General 04/11/19 Mychart, Generic Provider 09/01/20 Shena Lloyd MD [address] [place] [phone] Endocrinology/Diabetes/ Metabolism 12/30/20 Suellen Hurley NP [address] [place] [address] Nurse Practitioner Endocrinology/Diabetes/ Metabolism 03/29/21 documented as of this encounter
--- OUTSIDE RECORDS SUMMARY | 2025-02-14 17:52 | XMS_ITS | Clinical Summary ---
Author Organization [facility] Address [address] [place] [address] Care Team Providers Care Tar Processing Technician Name Role Phone None, None Primary Care Provider Unavailabl e Mychart, Generic Provider Unavailable Shena Joe MD Unavailable [phone] Suellen Hurley NP Unavailable Allergies No known active allergies Medications Blood-Glucose Meter Misc Use 1 Each as instructed 4 times daily (before meals and at bedtime). 1 Each 04/14/2019 4:02 PM EDT 04/14/20 19 Active Insulin [place], Disposable, 31 gauge x 5/16 NeedleIndications :Type [...] to the patient, Quantity 2, Lot Number [id number], Expiration 03/2020 6 mL 1 07/10/20 19 [...] EXTERNAL LAB Alb, Ur 1.30 mg/dL [facility] Alb Creat Ratio 20 0 [...] Lloyd MD URINE ORDERABLES Final Res ult [facility] EXTERNAL LAB [address] * (ABNORMAL) RENAL PROFILE (12/30/2020 4:22 [...] g/dL TC EXTERNAL LAB BUN/Creatinine Ratio 13 [facility] EXTERNAL [facility] Serum (Serum) 12/30/2020 4:2 2 PM EDT 12/30/2020 7:02 PM EDT Shena Lloyd MD CHEMISTRY ORDERABLES Final Result [facility] EXTERNAL [facility] [address] * LIPID PROFILE (12/30/2020 4:22 PM [...] High HDL 59 40 - 180 mg/dL [facility] EXTERNAL LAB Comment: HDL CHOLESTEROL INTERPRETATION: Less than 40 mg/dL Low Greater than 60 mg/dL Desirable Triglycerides 101 0 - 150 mg/dL [facility] EXTERNAL LAB Comment: TOTAL TRIGLYCERIDE INTERPRETATION: Less than 150 mg/dL Normal 150-199 mg/dL Borderline HIgh 200-499 mg/dL High Greater or Equal to 500 mg/dL Very High Serum (Serum) 12/30/2020 4:2 2 PM EDT 12/30/2020 7:02 PM EDT Shena Lloyd MD CHEMISTRY ORDERABLES Final Result [facility] EXTERNAL LAB [address] * POCT AMB HEMOGLOBIN A1C (12/30/2020 [...] Advance Directives For more information, please contact: [phone] * Full Code (Latest Code Status on File) Date Activated Date Inactivated Comments 04/11/2019 6:39 PM 06/21/2023 10:47 AM No automate d chest compression devices for VAD Patients * Full Code Date Activated Date Inactivated Comments 04/11/2019 6:37 PM 04/11/2019 6:39 PM Care Teams Tar Processing Technician Relationship Specialty Start Date End Date None, None [address] [place] [address] PCP - General 04/11/19 Ceferinohart, Generic Provider 09/01/20 Shena Lloyd MD [address] [place] [address] Endocrinology/Diabetes/ Metabolism 12/30/20 Suellen Hurley NP [address] [place] [address] Nurse Practitioner Endocrinology/Diabetes/ Metabolism 03/29/21
--- OUTSIDE RECORDS SUMMARY | 2025-02-14 17:52 | XMS_ITS | Clinical Summary ---
Author Organization [facility] Address [address] [place] [address] Care Team Providers Care Spiritual Care Coordinator Name Role Phone Gretchen Angelo APRN Primary Care Provider [phone] Allergies No known active allergies Medications Insulin [...] Description 11/21/2024 2:45 PM EDT Office Visit [facility] ENDOCRIN[facility] [address] Pavan Cruz MD Type 1 diabetes mellitus [...] drink = 0.6 oz pur e alcohol) [facility] Utilities Answer Date Recorded In the past 12 months has [email or web address], [employer], oil, or water [employer] threatened to shut off services in your [...] care, and heating? Not very hard 08/15/2024 [facility] [place] of Occupat ional Health - Occupational Stress [...] GED or equivalent No 08/15/2024 Preferred Language Irish 08/15/2024 PHQ-2 Answer Date Recorded Patient Health [...] Description 03/06/2025 3:00 PM EDT Office Visit [facility] ENDOCRIN[facility] [address] [phone] Pavan Cruz MD [address] [employer] [address] Health Maintenance Due Date Last Done Comments [...] Hemoglobin A1C 7.0(A) 4.5 - 5.7 % [facility] Lot Number [id number] [facility] Expiration Date 08/01/2026 [facility] Blood 11/21/2024 2:58 PM EDT us Pavan Cruz MD POINT OF CARE TEST ORD ERABLES Final Result [facility]
[address] [place] [id number], [place] [phone] from Last 3 Months Insurance [employer] [place] Advance Directives * CPR (Attempt to Resuscitate) [...] Of Support Discussed With: Patient Care Teams Spiritual Care Coordinator Relationship Specialty Start Date End Date Gretchen Angelo APRN [address] [place] [address] PCP - General Nurse Practitioner 06/25/23
--- OUTSIDE RECORDS SUMMARY | 2025-02-14 17:52 | XMS_ITS | Encounter Summary ---
Author Organization [facility] Address [address] [place] [address] Care Team Providers Care Director Of Alumni Relations Name Role Phone None, None Primary Care Provider Unavailabl e Mychart, Generic Provider Unavailable Shena oJe MD Unavailable [phone] Suellen Hurley NP Unavailable Reason for Visit * Reason Comments Medications Refill Encounter Details Date Type Department Care Team (Late st Contact Info) Description 08/06/2021 Refill [facility] [place] [address] [facility] [place] [address] Suellen Hurley NP [address] [place] [address] Medications Refill Social History Tobacco [...] study documented in this encounter Care Teams Director Of Alumni Relations Relationship Specialty Start Date End Date None, None [address] [place] [address] [place] [address] PCP - General 04/11/19 Mychart, Generic Provider 09/01/20 Shena Lloyd MD [address] [place] [phone] Endocrinology/Diabetes/ Metabolism 12/30/20 Suellen Hurley NP [address] [place] [address] Nurse Practitioner Endocrinology/Diabetes/ Metabolism 03/29/21 documented as of this encounter
--- OUTSIDE RECORDS SUMMARY | 2025-02-14 17:52 | XMS_ITS | Encounter Summary ---
Author Organization [facility] Address [address] [place] [address] Care Team Providers Care Clean In Places Operator Name Role Phone None, None Primary Care Provider Unavailabl e Mychart, Generic Provider Unavailable Shena Joe MD Unavailable [phone] Suellen Hurley NP Unavailable Reason for Visit * Reason Comments Medications Refill Encounter Details Date Type Department Care Team (Late st Contact Info) Description 10/19/2020 Refill [facility] [place] [address] [facility] [place] [address] Suellen Hurley NP [address] [place] [address] Medications Refill Social History Tobacco [...] study documented in this encounter Care Teams Clean In Places Operator Relationship Specialty Start Date End Date None, None [address] [place] [address] PCP - General 04/11/19 Mychart, Generic Provider 09/01/20 Shena Lloyd MD [address] [place] [phone] Endocrinology/Diabetes/ Metabolism 12/30/20 Suellen Hurley NP [address] [place] [address] Nurse Practitioner Endocrinology/Diabetes/ Metabolism 03/29/21 documented as of this encounter
--- OUTSIDE RECORDS SUMMARY | 2025-02-14 17:52 | XMS_ITS | Encounter Summary ---
Author Organization [facility] Address [facility] [place] [facility] [place] [address] Care Team Providers Care Mold Insert Changer Name Role Phone None, None Primary Care Provider Unavailabl e Mychart, Generic Provider Unavailable Shena Joe MD Unavailable [phone] Suellen Hurley NP Unavailable Reason for Visit * Reason Onset Date Comments Other 02/13/2020 EYE EXAM Encounter Details Date Type Department Care Team (Late st Contact Info) Description 02/13/2020 Clinical Update [facility] - [facility], [place] [address] [place] [address] Suellen Hurley NP [address] [place] [address] Other (EYE EXAM) Social History [...] on filedocumented in this encounter Care Teams Mold Insert Changer Relationship Specialty Start Date End Date None, None [address] [place] [address] PCP - General 04/11/19 Mychart, Generic Provider 09/01/20 Shena Lloyd MD [address] [place] [phone] Endocrinology/Diabetes/ Metabolism 12/30/20 Suellen Hurley NP [address] [place] [address] Nurse Practitioner Endocrinology/Diabetes/ Metabolism 03/29/21 documented as of this encounter
--- OUTSIDE RECORDS SUMMARY | 2025-02-14 17:52 | XMS_ITS | Encounter Summary ---
Author Organization [facility] Address [address] [place] [address] Care Team Providers Care Sanitizer Name Role Phone None, None Primary Care Provider Unavailabl e Mychart, Generic Provider Unavailable Shena Joe MD Unavailable [phone] Suellen Hurley NP Unavailable Reason for Visit * Reason Onset Date Comments Other 01/22/2020 [employer] fax Encounter Details Date Type Department Care Team (Late st Contact Info) Description 01/22/2020 Telephone [facility] - [facility], [employer] [address] [place] [address] Shena Lloyd MD [address] [place] [address] Other ([employer] fax) Social History Tobacco Use Types Packs/Day [...] 01/22/2020 6:55 AM EDT Rcvd fax from [employer] for SB to review and sign-placed in box documented in this encounter Plan of Treatment Not on file documented as of this encounter Visit Diagnoses Not on filedocumented in this encounter Care Teams Sanitizer Relationship Specialty Start Date End Date None, None [address] [place] [address] PCP - General 04/11/19 [place], Generic Provider 09/01/20 Shena Lloyd MD [address] [place] [phone] Endocrinology/Diabetes/ Metabolism 12/30/20 Suellen Hurley NP [address] [place] [address] Nurse Practitioner Endocrinology/Diabetes/ Metabolism 03/29/21 documented as of this encounter
--- OUTSIDE RECORDS SUMMARY | 2025-02-14 17:52 | XMS_ITS | Clinical Summary ---
Author Organization [facility] Address [address] [place] [address], [address] [place] [address] Care Team Providers Care Crm Marketing Analyst Name Role Phone Unavailable Primary Care Provider [...]
[2025-02-14 17:53] LABS: Microscopic, Urine URINE MICROSCOPIC (MICROSCOPIC)
--- NOTE | 2025-02-14 17:55 | ECG_ITS ---
APPROVED REPORT Exam: Resting ECG HR:55 bpm ECG Measurements Heart Rate 55 AXES ME 168 P -74 QRSd 88 QRS 92 QT 426 T 78 QTc 415 Conclusion ECTOPIC ATRIAL BRADYCARDIA BORDERLINE RIGHT AXIS DEVIATION [QRS AXIS > 90] ABNORMAL RHYTHM ECG UNCONFIRMED REPORT Electronically signed by : Harshil Reynaga, 02/14/2025 22:51:19
[2025-02-14 17:57] LABS: Color,Urine YELLOW (Yellow); Glucose,Urine (UA) 2+ (Negative); Ketones,Urine 3+ (Negative); Leukocyte Esterase,Urine Negative (Negative); PH,Urine 6.0 (5.0-8.5); Protein,Urine Negative (Negative); Specific Gravity, Urine 1.025 (1.005-1.030); Urobilinogen,Urine 0.2 EU/dl (0.2)
[2025-02-14] MEDS: droPERidol 5MG/2ML VIAL 2.5 MG IV ×2 (18:00→19:56)
[2025-02-14] MEDS: 0.9 % SODIUM CHLORIDE 1000ML 1,000 ML 999 ML IV (18:00)
[2025-02-14 18:01] VITALS: BP 137/69; PULSE 58; O2SAT 98
[2025-02-14 18:02] LABS: Bilirubin,Urine 1+ (Negative)
[2025-02-14 18:05] LABS: Hematocrit 41.8 % (42.0-52.0); Hemoglobin 14.2 g/dL (14.1-18.0); Immature Granulocytes % 0.6 %; Mean Corpuscular HGB Conc 34.0 g/dL (31.8-35.4); Mean Corpuscular Hemoglobin 29.2 pg (27.0-31.2); Mean Corpuscular Volume 85.8 fl (80-94); Nucleated Red Blood Cells % 0 %; Platelet Count 325 K/mm3 (142-424); Red Blood Count 4.87 M/mm3 (4.60-6.20); Red Cell Distribution Width-SD 38.7 fL; White Blood Count 14.0 K/mm3 (4.8-10.8)
--- NOTE | 2025-02-14 18:06 | ED_ITS ---
<Statement entered by Jaxson Reynaga MD - 02/14/25 21:05> I was consulted by the ANUPAM, and we discussed the complexity of the problems being addressed. I approved the treatment and management plan for this patient's care in the emergency department, thus performing a substantive portion of the medical decision making. Jaxson Reynaga MD, FAMILIA, FACEP Discharge Plan Disposition Chief Complaint: Nausea/Vomiting/Diarrhea Discharge ED Provider: Jaxson Reynaga General Adult HPI General Chief complaint: Nausea/Vomiting/Diarrhea Stated complaint: vomiting,nausea,headache Time Seen by Provider: 02/14/25 17:50 Mode of Arrival: Ambulatory Source of Information: Patient Description of Symptoms (Recalled from ER Triage Doc. by RN): PT presents to the Ed for evaluation of abd pain, N/V. Pt stated it started this am on 02/14/2025. PT stated there is a burning pain in his stomach and up into his throat. History of Present Illness HPI narrative: patient is a 24-year-old male PMHx type 1 diabetes and recent diagnosis of intractable nausea and vomiting with admission. Patient was discharged this morning. He states that when he was discharged he felt fine, however this evening developed nausea and vomiting again. Related Data Home Medications ?Medication ?Instructions ?Recorded ?Confirmed insulin lispro 200 unit/mL (3 mL) 10 - 15 unit SQ AC 0 02/13/25 02/13/25 subcutaneous pen (Humalog KwikPen U-200 Insulin) Previous Rx's ?Medication ?Instructions ?Recorded blood-glucose sensor (FreeStyle #1 ea 08/18/24 Poli 3 Sensor device) pen needle, diabetic 32 gauge x #1,200 ea 10/23/24 insulin lispro 200 unit/mL (3 mL) See Rx Instructions .Route 01/31/25 subcutaneous pen (Humalog KwikPen .COMPLEX #6 mL U-200 Insulin) insulin lispro 200 unit/mL (3 mL) 20 unit (0.1 mL) SQ DAILY 30 days 02/14/25 subcutaneous pen (Humalog KwikPen #3 mL U-200 Insulin) Allergies Allergy/AdvReac Type Severity Reaction Status Date / Time No Known Allergies Allergy Verified 01/22/25 13:09 [facility] Disclaimer: The information contained in this section may have been updated after the patient was seen, as this information can be updated by other users. Medical History Insulin pump in place Vitamin D deficiency Vitamin B12 deficiency Non compliance with medical treatment Abdominal pain Abdominal pain Diabetes mellitus type 1 Hyperthyroidism Family History Diabetes Cancer Hypertension Social History Smoking Status: Current every day smoker tobacco type: e-cigarettes alcohol intake: never current occupational status: employed Travel in the last 8 weeks?: None Have you lived/traveled outside US in past 30 days?: No Contact w/someone who lives/traveled outside US past 30 days?: No Exposure to someone with infectious disease in past 14 days?: No Do you have a fever (greater than 100.4 F or 38 C)?: No Have you tested positive for COVID-19?: No Exposed to someone with COVID-19 in past 14 days?: No Do you have a sore throat?: No Do you have a cough?: No Do you have any weakness?: Yes Do you have any diarrhea?: No Are you experiencing any unusual bleeding?: No Do you have any muscle aches/pain?: No Do you have any abdominal pain?: No Are you experiencing loss of taste or smell?: No Other Medical History Have you received the Flu Vaccine for this season: No Have you received the Pneumonia Vaccine: No ROS Obtained: Yes Systems reviewed as appropriate & no additional complaints except as documented Physical Exam General General appearance: alert and in no apparent distress Head Head exam: atraumatic Neck Neck exam: Present full ROM Chest Chest inspection: Present normal inspection Respiratory Respiratory exam: Present normal lung sounds bilaterally Cardiovascular Cardiovascular exam: Present regular rate Abdominal Exam Abdominal exam: Present soft Back Exam Back exam: Present full ROM Neurological Exam Neurological exam: Present alert and oriented X3 Skin Skin exam: Present warm Medical Decision Making Medical Records Screening: Per USPSTF and CDC recommendations, given the prevalence of disease in our region, it is our hospital?s policy to screen for HIV and viral Hepatitis for all patients aged 18 and over and those with ongoing risk factors. Lui Inquiry Pt receiving controlled substance: No Lui was queried for this patient: No Vital Signs: 02/14/25 17:51 02/14/25 18:01 02/14/25 18:31 Temperature 98.5 F Temperature Source Oral Pulse Rate 58 L 54 L Pulse Rate [Right] 65 Respiratory Rate 16 18 Blood Pressure 137/69 129/84 Blood Pressure [Left Arm] 135/97 H Blood Pressure Mean 87 Blood Pressure Mean [Left Arm] 109 02 Sat by Pulse Oximetry 99 98 99 Oxygen Delivery Method Room Air 02/14/25 20:02 Temperature Temperature Source Pulse Rate 56 L Pulse Rate [Right] Respiratory Rate 15 Blood Pressure 110/59 L Blood Pressure [Left Arm] Blood Pressure Mean Blood Pressure Mean [Left Arm] 02 Sat by Pulse Oximetry 98 Oxygen Delivery Method Room Air Lab Data Lab Results 02/14/25 17:47: Urine Color Yellow, Urine Appearance Clear, Urine pH 6.0, Ur Specific [place] 1.025, Urine Protein Negative, Urine Glucose (UA) 2+, Urine Ketones 3+, Urine Blood Negative, Urine Nitrate Negative, Urine Bilirubin 1+ A, Urine Urobilinogen 0.2, Ur Leukocyte Esterase Negative, Urine RBC None, Urine WBC 3-5, Ur Squamous Epith Cells None, Urine Bacteria None, Urine Mucus 1+ 02/14/25 17:55: WBC 14.0 H, RBC 4.87, Hgb 14.2, Hct 41.8 L, MCV 85.8, MCH 29.2, MCHC 34.0, RDW 12.5, Plt Count 325, MPV 8.6, Neut % (Auto) 76.5, Lymph % (Auto) 13.8, [place] % (Auto) 8.7, Eos % (Auto) 0.0 L, Baso % (Auto) 0.4, Neut # (Auto) 10.7 H, Lymph # (Auto) 1.9, [place] # (Auto) 1.2 H, Eos # (Auto) 0.0, Baso # (Auto) 0.1, Sodium 138, Potassium 3.6, Chloride 104, Carbon Dioxide 26, Anion Gap 11.6, BUN 23 H, Creatinine 0.70, Estimated Creat Clear 124, Estimated GFR 137, Est GFR ( Amer) 166, Glucose 90 D, Calcium 9.3, Total Bilirubin 0.7, AST 35, ALT 19, Alkaline Phosphatase 67, Total Protein 7.6, Albumin 4.2 D, Globulin 3.4 H, Albumin/Globulin Ratio 1.2 02/14/25 17:55 02/14/25 17:55 Orders (Tests/Meds): ED MEDICATIONS Generic Name Dose Route Start Last Admin Trade Name Frerafael PRN Reason Stop Dose Admin Lactated Ringer's 1,000 mls @ 100 mls/hr 02/14/25 20:15 Lactated Ringer's 1000 Ml Bag IV 02/15/25 06:14 .Q10H MARCELO Ketorolac Tromethamine 30 mg 02/14/25 20:06 Ketorolac 30mg/Ml Vial IV 02/19/25 20:05 Q6HP PRN Moderate Pain (4-6) Metoclopramide HCl 5 mg 02/14/25 21:00 Metoclopramide Hcl 10mg/2ml Vial IVP 03/16/25 20:59 ACHS MARCELO Pantoprazole Sodium 40 mg 02/14/25 21:00 Pantoprazole 40mg Vial IV 03/16/25 20:59 BID MARCELO Sodium Chloride 10 ml 02/14/25 19:23 Sodium Chloride 0.9% 10ml Vial IV 03/16/25 19:22 NEEDED PRN to Dilute Lorazepam inj Discontinued Medications Generic Name Dose Route Start Last Admin Trade Name Abimael PRN Reason Stop Dose Admin Droperidol 2.5 mg 02/14/25 17:55 02/14/25 18:00 Droperidol 5mg/2ml Vial IV 02/14/25 17:56 2.5 mg ONCE ONE Administration Droperidol 2.5 mg 02/14/25 19:53 02/14/25 19:56 Droperidol 5mg/2ml Vial IV 02/14/25 19:54 2.5 mg ONCE ONE Administration Sodium Chloride 1,000 mls @ 999 mls/hr 02/14/25 17:50 02/14/25 18:00 Sod Chlor 0.9% 1000ml Bag IV 02/14/25 18:50 999 mls/hr .Q1H1M ONE Administration Lorazepam 1 mg 02/14/25 19:26 02/14/25 20:09 Lorazepam 1mg Tablet PO 02/14/25 19:27 Not Given ONCE ONE Ondansetron HCl 4 mg 02/14/25 19:23 02/14/25 19:29 Ondansetron 4mg/2ml Vial IV 02/14/25 19:24 4 mg ONCE ONE Administration ORDERS Category Date Time Status CBC w/Auto Diff [Complete Blood Count Auto Diff] Stat Lab 02/14/25 17:55 Completed CMP [Comprehensive Metabolic Panel] Stat Lab 02/14/25 17:55 Completed Complete Blood Count Auto Diff [facility] Lab 02/15/25 06:00 Ordered Comprehensive Metabolic Panel [facility] Lab 02/15/25 06:00 Ordered Magnesium [facility] Lab 02/15/25 06:00 Ordered Phosphorous [facility] Lab 02/15/25 06:00 Ordered Urinalysis and Microscopic Stat Lab 02/14/25 17:47 Completed Medical Decision Narrative: In summary, patient is a 24-year-old male PMHx type 1 diabetes and recent diagnosis of intractable nausea and vomiting with admission. Patient was discharged this morning. He states that when he was discharged he felt fine, however this evening developed nausea and vomiting again. Upon arrival his blood glucose was in the 90s, he is actively vomiting. Patient states that he does smoke marijuana however denies smoking today. He denies any other complaints at this time. Denies fever, chills, headache, visual disturbances, chest pain, shortness of breath, abdominal pain, dysuria. Upon initial evaluation patient is alert, actively vomiting at bedside, abdomen is soft and nontender. Discussed with patient we will proceed with droperidol administration. Labs obtained. CBC unremarkable for any leukocytosis, stable H&H. CMP overall unremarkable for any actionable abnormalities. Patient has been given droperidol, Zofran, additional dose of droperidol, attempted oral Ativan (shortage of IV Ativan at this time) patient unable to keep this down. He continues to have intractable nausea and vomiting. I had a shared decision making with patient and he is agreeable to admission. Dr. Schultz excepted patient to hospital medicine services for intractable nausea and vomiting. Critical Care Critical Care Time Critical Care Time: No
[2025-02-14 18:07] LABS: Albumin Level 4.2 g/dl (3.5-5.0); Chloride 104 mmol/L (98-107); Sodium 138 mmol/L (136-145)
[2025-02-14 18:08] LABS: Potassium 3.6 mmoL/L (3.5-5.1)
[2025-02-14 18:10] LABS: Alanine Aminotransferase 19 U/L (12-78); Albumin/Globulin Ratio 1.2 (1.1-1.8); Alkaline Phosphatase 67 U/L (38-126); Anion Gap 11.6 mEq/L (5-15); Aspartate Amino Transferase 35 U/L (17-59); Bilirubin,Total 0.7 mg/dl (0.2-1.3); Blood Urea Nitrogen 23 mg/dl (9-20); Carbon Dioxide 26 mmol/L (22.0-30.0); Creatinine Clearance Estimated 124 mL/min (50-200); Creatinine,Serum 0.70 mg/dl (0.66-1.25); Estimated Glomerular Filt Rate 137 ml/min (>60); GFR (African American) 166 ML/MIN (>60); Globulin 3.4 g/dL (1.3-3.2); Total Protein,Serum 7.6 g/dl (6.3-8.2)
[2025-02-14 18:11] LABS: Calcium 9.3 mg/dl (8.4-10.2); Glucose 90 mg/dl (74-100)
[2025-02-14 18:22] LABS: Mucus,Urine 1+ /lpf
[2025-02-14 18:31] VITALS: BP 129/84; PULSE 54; RESP 18; O2SAT 99
[2025-02-14] MEDS: ONDANSETRON 4MG/2ML VIAL 4 MG IV (19:29)
[2025-02-14 20:02] VITALS: BP 110/59; PULSE 56; RESP 15; O2SAT 98
--- NOTE | 2025-02-14 20:08 | EXP.HP ---
History of Present Illness *Admission Date: 02/14/25 *Reason for visit:: got home after DC and developed PO intolerance *History of present illness: Mr. Joe is a 24-year-old male with type 1 diabetes, gastroparesis, recurring admissions every few months for intractable nausea and vomiting. Was admitted within the past few days due to nausea and vomiting after his insulin pump ran out. Was not in DKA. Admitted for management. Was feeling better. Discharged earlier this morning after having improved abdominal pain, tolerating p.o. intake and requesting to go home. After getting home, patient had recurrence of nausea and vomiting. Unable to keep anything down and came back to the ER for further evaluation. Treated with multiple doses of droperidol in the ED. In spite of medical management, was unable to tolerate oral intake and medicine was consulted for admission. Workup in the ED showed white count of 14, suspect reactive from stress reaction. Anion gap 11. Glucose 90. Electrolytes and kidney function normal. Fatigued, answering questions but just wanting to sleep. Mother at bedside. Initiated on maintenance fluids. [facility] Disclaimer: The information contained in this section may have been updated after the patient was seen, as this information can be updated by other users. Medical History Insulin pump in place Vitamin D deficiency Vitamin B12 deficiency Non compliance with medical treatment Abdominal pain Abdominal pain Diabetes mellitus type 1 Hyperthyroidism Family History Diabetes Cancer Hypertension Social History Smoking Status: Current every day smoker tobacco type: e-cigarettes alcohol intake: never current occupational status: employed Travel in the last 8 weeks?: None Have you lived/traveled outside [place] in past 30 days?: No Contact w/someone who lives/traveled outside US past 30 days?: No Exposure to someone with infectious disease in past 14 days?: No Do you have a fever (greater than 100.4 F or 38 C)?: No Have you tested positive for COVID-19?: No Exposed to someone with COVID-19 in past 14 days?: No Do you have a sore throat?: No Do you have a cough?: No Do you have any weakness?: Yes Do you have any diarrhea?: No Are you experiencing any unusual bleeding?: No Do you have any muscle aches/pain?: No Do you have any abdominal pain?: No Are you experiencing loss of taste or smell?: No Other Medical History Have you received the Flu Vaccine for this season: No Have you received the Pneumonia Vaccine: No Review of Systems Review of Systems Review of systems (narrative): 14 point review of systems performed, pertinent positives and negatives as per [facility] Meds Home Medications and Allergies Home Medications ?Medication ?Instructions ?Recorded ?Confirmed ?Type blood-glucose sensor (FreeStyle #1 ea 08/18/24 02/14/25 Rx Poli 3 Sensor device) pen needle, diabetic 32 gauge x #1,200 ea 10/23/24 02/14/25 Rx insulin lispro 100 unit/mL 100 sliding scale dose SQ . 02/14/25 02/14/25 History subcutaneous pen (Humalog KwikPen (U-100) Insulin) New Prescriptions to Start Prescriptions: Allergies Allergy/AdvReac Type Severity Reaction Status Date / Time No Known Allergies Allergy Verified 01/22/25 13:09 Exam Data for Last 24 hours Vital signs and Labs for Last 24 Hours: Temp Pulse Resp BP Pulse Ox O2 Del Method 98.5 F 56 L 15 110/59 L 98 Room Air 02/14/25 17:51 02/14/25 20:02 02/14/25 20:02 02/14/25 20:02 02/14/25 20:02 02/14/25 20:02 Laboratory Results - last 24 hr 02/14/25 17:47: Urine Color Yellow, Urine Appearance Clear, Urine pH 6.0, Ur Specific [place] 1.025, Urine Protein Negative, Urine Glucose (UA) 2+, Urine Ketones 3+, Urine Blood Negative, Urine Nitrate Negative, Urine Bilirubin 1+ A, Urine Urobilinogen 0.2, Ur Leukocyte Esterase Negative, Urine RBC None, Urine WBC 3-5, Ur Squamous Epith Cells None, Urine Bacteria None, Urine Mucus 1+ 02/14/25 17:55: WBC 14.0 H, RBC 4.87, Hgb 14.2, Hct 41.8 L, MCV 85.8, MCH 29.2, MCHC 34.0, RDW 12.5, Plt Count 325, MPV 8.6, Neut % (Auto) 76.5, Lymph % (Auto) 13.8, [place] % (Auto) 8.7, Eos % (Auto) 0.0 L, Baso % (Auto) 0.4, Neut # (Auto) 10.7 H, Lymph # (Auto) 1.9, [place] # (Auto) 1.2 H, Eos # (Auto) 0.0, Baso # (Auto) 0.1, Sodium 138, Potassium 3.6, Chloride 104, Carbon Dioxide 26, Anion Gap 11.6, BUN 23 H, Creatinine 0.70, Estimated Creat Clear 124, Estimated GFR 137, Est GFR ( Amer) 166, Glucose 90 D, Calcium 9.3, Total Bilirubin 0.7, AST 35, ALT 19, Alkaline Phosphatase 67, Total Protein 7.6, Albumin 4.2 D, Globulin 3.4 H, Albumin/Globulin Ratio 1.2 I & O for Last 24 hours: Intake & Output 02/11/25 02/12/25 02/13/25 02/14/25 23:59 23:59 23:59 23:59 Weight 54.431 kg Constitutional Constitutional: mild distress, cachectic and chronically ill appearing *Routine HEENT Exam Head: Present normocephalic Eye: Present EOMI and PERRL ENT: Present mucous membranes moist *Routine Neck Exam Neck: Present supple; Absent lymphadenopathy *Routine Respiratory Exam Respiratory: Present CTA bilaterally; Absent rhonchi, wheezes or crackles *Routine Cardiovascular Exam Cardiovascular: Present RRR *Routine Abdominal Exam Abdominal: Present soft, normoactive bowel sounds and tenderness; Absent distended or rebound *Routine Rectal Exam Rectal:: deferred *Routine Genitalia Exam Genitalia:: deferred *Routine Extremities Exam Extremities: Absent cyanosis, clubbing or edema *Routine Skin Exam Skin: Present intact and warm; Absent rash *Routine Neurological Exam Neurological: Present alert, oriented X3 and moving all extremities; Absent altered mental status Assessment and Plan *Assessment and plan (1) Nausea and vomiting in adult: Status: Resolved Category: Medical Code(s): R11.2 - Nausea with vomiting, unspecified (2) Diabetic gastroparesis: Status: Acute Category: Medical Code(s): E11.43 - Type 2 diabetes mellitus with diabetic autonomic (poly)neuropathy; K31.84 - Gastroparesis (3) Diabetes mellitus type 1: Status: Acute Qualifiers: Diabetes mellitus complication status: with other specified complication Qualified Code(s): E10.69 - Type 1 diabetes mellitus with other specified complication Category: Medical Code(s): E10.9 - Type 1 diabetes mellitus without complications Plan Patient is a 24-year-old male with past medical history of type 1 diabetes mellitus with insulin pump who presents to the hospital due to complaints of vomiting after just being discharged this morning for similar admission. Got home and developed intolerance of p.o. intake after eating breakfast and requesting to go home. Due to inability to control nausea and emesis in the ED, medicine consulted for admission. Discussed case with ER provider, request admission due to intractable nausea and vomiting. I decided to admit for continued medical management. Not in DKA at this time. Will trial scheduled Reglan. Problems addressed as follows: # Intractable nausea and vomiting #History of gastroparesis #History of THC use ? Presented with worsening nausea/vomiting and weakness. Was just discharged this morning after feeling better and eating breakfast. ? Sodium 138, potassium 3.6, kidney function normal with BUN 23, creatinine 0.7. Glucose 90. Anion gap 11.6 - Repeat CBC, CMP, magnesium ordered for the morning - White count elevated at 14, suspect reactive to emesis. holding on abx at this time. - initiate Reglan 10mg IVP ACHS. - Continue LR at 100 cc/h - Protonix 40 mg IV BID for gastritis - needs outpt GI follow-up/referral however if still admitted on Sunday, will have GI see patient during admission. - KUB ordered to evaluate for any obstruction. Per my review, has nonspecific bowel gas pattern. # Type 1 diabetes -Recently initiated insulin pump. Not in DKA at this time. Will evaluate if pump is functioning. If not we will continue basal bolus regimen with insulin glargine 12 units tonight and sliding scale insulin ACHS. Fingersticks ACHS. -Refill pump this morning, continue home regimen. Will use home freestyle poli to monitor glucose. Will verify its accuracy with fingerstick. -A1c 4 months ago of 7.7. Repeat A1c on admission 7.0 Tobacco abuse -Nicotine patch as needed -Tobacco cessation counseling given Full code Diabetic diet Lovenox 40 mg subcu daily
--- NOTE | 2025-02-14 20:13 | PC.NURSE ---
Report called to ADDIS Hauser
[2025-02-14 20:14] VITALS: BP 110/59; PULSE 56; RESP 15; TEMP 37.1; O2SAT 98
--- NOTE | 2025-02-14 20:27 | PC.NURSE ---
Patient arrived to floor via wheelchair from ED at 20:26.
[2025-02-14] MEDS: LACTATED RINGERS 1000ML 1,000 ML 100 ML IV (20:29)
[2025-02-14] MEDS: PANTOPRAZOLE 40MG VIAL 40 MG IV (20:29)
[2025-02-14] MEDS: SODIUM CHLORIDE 0.9% 10ML VIAL 10 ML IV (20:29)
[2025-02-14] MEDS: METOCLOPRAMIDE HCL 10MG/2ML VIAL 5 MG IVP ×2 (20:30→21:48)
[2025-02-14 20:41] VITALS: BP 122/74; PULSE 75; RESP 16; TEMP 37; O2SAT 99; BMI 19.2
--- NOTE | 2025-02-14 21:01 | XR_ITS ---
PROCEDURE INFORMATION: Exam: XR Abdomen Exam date and time: 02/14/2025 9:30 PM Age: 24 years old Clinical indication: Nausea and other: Nausea and emesis TECHNIQUE: Imaging protocol: Radiologic exam of the abdomen. Views: Frontal supine view of the abdomen. 1 View. COMPARISON: CT ABDOMEN PELVIS W CON 12/30/2023 8:05 PM FINDINGS: Gastrointestinal tract: Normal. No bowel dilation. Bones/joints: Unremarkable. IMPRESSION: No acute findings.
[2025-02-14 21:08] LABS: Hemoglobin A1C 7.0 % (4.0-6.0)
--- NOTE | 2025-02-14 21:59 | PC.NURSE ---
Fingerstick glucose check compared to device from patient both readings 128. Marion stated okay to use device for readings.
[2025-02-14 22:00] LABS: POC Glucose,Bedside 128 (70-110)
[2025-02-15 04:00] VITALS: BP 110/55; PULSE 70; RESP 16; TEMP 37.1; O2SAT 98; BMI 19.2
--- NOTE | 2025-02-15 05:05 | PC.NURSE ---
Addendum entered by Analisa Bradshaw RN 02/15/25 05:50: Patient woke up at this time feeling nausea, while giving Reglan, patient vomited once into emesis bag, small amount, light brown. Patient states no other needs. Original Note: Alert and oriented. Mother at bedside. Patient did vomit on arrival to floor. Patient has been sleeping since medication administration with no complaints. Abdomen is soft, tender to touch. Call light in reach.
[2025-02-15] MEDS: METOCLOPRAMIDE HCL 10MG/2ML VIAL 10 MG IVP ×4 (05:45→20:22)
[2025-02-15 06:51] LABS: Hematocrit 37.5 % (42.0-52.0); Immature Granulocytes % 0.4 %; Mean Corpuscular HGB Conc 33.1 g/dL (31.8-35.4); Mean Corpuscular Hemoglobin 28.4 pg (27.0-31.2); Mean Corpuscular Volume 86.0 fl (80-94); Nucleated Red Blood Cells % 0 %; Platelet Count 246 K/mm3 (142-424); Red Blood Count 4.36 M/mm3 (4.60-6.20); Red Cell Distribution Width-SD 39.0 fL; White Blood Count 12.5 K/mm3 (4.8-10.8)
[2025-02-15 07:11] LABS: Albumin Level 3.4 g/dl (3.5-5.0); Chloride 104 mmol/L (98-107); Potassium 3.4 mmoL/L (3.5-5.1); Sodium 136 mmol/L (136-145)
[2025-02-15 07:14] LABS: Alanine Aminotransferase 14 U/L (12-78); Albumin/Globulin Ratio 1.3 (1.1-1.8); Alkaline Phosphatase 67 U/L (38-126); Anion Gap 10.4 mEq/L (5-15); Aspartate Amino Transferase 31 U/L (17-59); Bilirubin,Total 0.7 mg/dl (0.2-1.3); Blood Urea Nitrogen 19 mg/dl (9-20); Calcium 8.6 mg/dl (8.4-10.2); Carbon Dioxide 25 mmol/L (22.0-30.0); Creatinine Clearance Estimated 127 mL/min (50-200); Creatinine,Serum 0.70 mg/dl (0.66-1.25); Estimated Glomerular Filt Rate 137 ml/min (>60); GFR (African American) 166 ML/MIN (>60); Globulin 2.7 g/dL (1.3-3.2); Glucose 133 mg/dl (74-100); Phosphorous 2.6 mg/dl (2.5-4.5); Total Protein,Serum 6.1 g/dl (6.3-8.2)
[2025-02-15 07:15] LABS: Magnesium 1.8 mg/dl (1.6-2.3)
[2025-02-15 07:22] LABS: Hemoglobin 12.4 g/dL (14.1-18.0)
[2025-02-15 07:44] VITALS: BP 106/56; PULSE 52; RESP 16; TEMP 36.9; O2SAT 98
--- NOTE | 2025-02-15 09:18 | HMH.PHAINT1 ---
Pharmacy Intervention Comments: MEDICATION RECONCILIATION COMPLETE USING EXTERNAL PHARMACY FILL HISTORY AND NOTE FROM DISCHARGE YESTERDAY (02/14/25).
[2025-02-15] MEDS: PANTOPRAZOLE 40MG VIAL 40 MG IV ×2 (09:24→20:21)
[2025-02-15] MEDS: POLYETHYLENE GLYCOL 3350 17 GM PACKET PO (09:24)
[2025-02-15] MEDS: SODIUM CHLORIDE 0.9% 10ML VIAL 10 ML IV (09:24)
--- NOTE | 2025-02-15 11:02 | PC.NURSE ---
Pt stated his blood sugar was 209 from his freestyle tomasz at 1100. Pt has continous insulin pump. Pt and his mother stated they weren't sure how much insulin he received from his pump. aware that pt is using pump and tomasz for glucose monitoring.
--- NOTE | 2025-02-15 13:29 | PC.NURSE ---
pt blood sugar re-checked at this time. pt states it is 164
[2025-02-15 16:00] VITALS: BP 136/70; PULSE 86; RESP 18; TEMP 36.7; O2SAT 100
--- NOTE | 2025-02-15 16:37 | P.PN_ITS ---
Subjective *Date: 02/15/25 *Time: 16:37 Interval history: Patient is seen and evaluated at the bedside, patient denies chest pain shortness of breath, still has nausea, no vomiting Exam Data for Last 24 hours Vital signs and Labs for Last 24 Hours: Temp Pulse Resp BP Pulse Ox O2 Del Method 98.1 F 86 18 136/70 100 Room Air 02/15/25 16:00 02/15/25 16:00 02/15/25 16:00 02/15/25 16:00 02/15/25 16:00 02/15/25 16:00 Laboratory Results - last 24 hr 02/14/25 17:47: Urine Color Yellow, Urine Appearance Clear, Urine pH 6.0, Ur Specific [place] 1.025, Urine Protein Negative, Urine Glucose (UA) 2+, Urine Ketones 3+, Urine Blood Negative, Urine Nitrate Negative, Urine Bilirubin 1+ A, Urine Urobilinogen 0.2, Ur Leukocyte Esterase Negative, Urine RBC None, Urine WBC 3-5, Ur Squamous Epith Cells None, Urine Bacteria None, Urine Mucus 1+ 02/14/25 17:55: WBC 14.0 H, RBC 4.87, Hgb 14.2, Hct 41.8 L, MCV 85.8, MCH 29.2, MCHC 34.0, RDW 12.5, Plt Count 325, MPV 8.6, Neut % (Auto) 76.5, Lymph % (Auto) 13.8, [place] % (Auto) 8.7, Eos % (Auto) 0.0 L, Baso % (Auto) 0.4, Neut # (Auto) 10.7 H, Lymph # (Auto) 1.9, [place] # (Auto) 1.2 H, Eos # (Auto) 0.0, Baso # (Auto) 0.1, Sodium 138, Potassium 3.6, Chloride 104, Carbon Dioxide 26, Anion Gap 11.6, BUN 23 H, Creatinine 0.70, Estimated Creat Clear 124, Estimated GFR 137, Est GFR ( Amer) 166, Glucose 90 D, Hemoglobin A1c 7.0 H, Calcium 9.3, Total Bilirubin 0.7, AST 35, ALT 19, Alkaline Phosphatase 67, Total Protein 7.6, [place] min 4.2 D, Globulin 3.4 H, Albumin/Globulin Ratio 1.2 02/14/25 21:53: POC Glucose 128 H 02/15/25 06:35: WBC 12.5 H, RBC 4.36 L, Hgb 12.4 L D, Hct 37.5 L, MCV 86.0, MCH 28.4, MCHC 33.1, RDW 12.4, Plt Count 246, MPV 8.6, Neut % (Auto) 70.0, Lymph % (Auto) 18.9, [place] % (Auto) 10.4 H, Eos % (Auto) 0.1, Baso % (Auto) 0.2, Neut # (Auto) 8.7 H, Lymph # (Auto) 2.4, [place] # (Auto) 1.3 H, Eos # (Auto) 0.0, Baso # (Auto) 0.0, Sodium 136, Potassium 3.4 L, Chloride 104, Carbon Dioxide 25, Anion Gap 10.4, BUN 19, Creatinine 0.70, Estimated Creat Clear 127, Estimated GFR 137, Est GFR ( Amer) 166, Glucose 133 H D, Calcium 8.6, Phosphorus 2.6, Magnesium 1.8, Total Bilirubin 0.7, AST 31, ALT 14 D, Alkaline Phosphatase 67, Total Protein 6.1 L, Albumin 3.4 L D, Globulin 2.7, Albumin/Globulin Ratio 1.3 I & O for Last 24 hours: Intake & Output 02/12/25 02/13/25 02/14/25 02/15/25 23:59 23:59 23:59 23:59 Intake Total 0 / 0 Output Total 350 / 350 Balance -350 / -350 Weight 55.52 kg 55.52 kg Constitutional Constitutional: no acute distress *Routine HEENT Exam Head: Present normocephalic Eye: Present EOMI and PERRL ENT: Present mucous membranes moist *Routine Neck Exam Neck: Present supple; Absent lymphadenopathy *Routine Respiratory Exam Respiratory: Present CTA bilaterally *Routine Cardiovascular Exam Cardiovascular: Present RRR *Routine Abdominal Exam Abdominal: Present soft and normoactive bowel sounds; Absent tenderness *Routine Extremities Exam Extremities: Absent cyanosis, clubbing or edema *Routine Skin Exam Skin: Present warm; Absent rash *Routine Neurological Exam Neurological: Present alert and oriented X3 Assessment and Plan *Assessment and plan (1) Nausea and vomiting in adult: Status: Resolved Category: Medical Code(s): R11.2 - Nausea with vomiting, unspecified (2) Diabetic gastroparesis: Status: Acute Category: Medical Code(s): E11.43 - Type 2 diabetes mellitus with diabetic autonomic (poly)neuropathy; K31.84 - Gastroparesis (3) Diabetes mellitus type 1: Status: Acute Qualifiers: Diabetes mellitus complication status: with other specified complication Qualified Code(s): E10.69 - Type 1 diabetes mellitus with other specified compl ication Category: Medical Code(s): E10.9 - Type 1 diabetes mellitus without complications Plan Patient is a 24-year-old male with past medical history of type 1 diabetes mellitus with insulin pump who presents to the hospital due to complaints of vomiting after just being discharged this morning for similar admission. Got home and developed intolerance of p.o. intake after eating breakfast and requesting to go home. Due to inability to control nausea and emesis in the ED, medicine consulted for admission. # Intractable nausea and vomiting #History of gastroparesis #History of THC use - initiate Reglan 10mg IVP ACHS. -Continue IV fluids - Protonix 40 mg IV BID for gastritis - needs outpt GI follow-up/referral however if still admitted on Sunday, will have GI see patient during admission. - KUB ordered to evaluate for any obstruction-no acute findings # Type 1 diabetes -Recently initiated insulin pump. Not in DKA at this time. Will evaluate if pump is functioning. If not we will continue basal bolus regimen with insulin glargine 12 units tonight and sliding scale insulin ACHS. Fingersticks ACHS. -Refill pump this morning, continue home regimen. Will use home freestyle tomasz to monitor glucose. Will verify its accuracy with fingerstick. -A1c 4 months ago of 7.7. Repeat A1c on admission 7.0 leukocytosis likely reactive monitor Tobacco abuse -Nicotine patch as needed -Tobacco cessation counseling given Full code Diabetic diet Lovenox 40 mg subcu daily Likely discharge 1 to 2 days pending clinical improvement
--- NOTE | 2025-02-15 16:39 | PC.NURSE ---
Pt is A&Ox4. Vital signs stable tolerating room air. Pt complains of nausea/vomiting. Treated per MAR with scheduled medications. Pt voices relief with medications. Pt blood sugars checked via pt's freestyle tomasz. Pt has continous insulin pump. MD aware. Pt NPO at midnight. GI consult for tomorrow. Pt resting comfortably with no further needs voiced at this time. Call light within reach.
[2025-02-15 19:59] VITALS: BP 113/63; PULSE 80; RESP 16; TEMP 37.1; O2SAT 100
[2025-02-15] MEDS: SENNOSIDES 8.6MG/DOCUSATE 50MG TABLET 1 TAB PO (20:22)
[2025-02-15 23:55] VITALS: BP 152/74; PULSE 51; RESP 16; TEMP 36.8; O2SAT 97
[2025-02-16 04:00] VITALS: BP 122/69; PULSE 68; RESP 16; TEMP 36.9; O2SAT 100; BMI 19.3
[2025-02-16] MEDS: PROMETHAZINE HCL 25MG/ML 1ML VIAL 25 MG IV (04:16)
[2025-02-16] MEDS: SODIUM CHLORIDE 0.9% 25ML BAG 25 ML IV (04:16)
--- NOTE | 2025-02-16 05:00 | PC.NURSE ---
patient A&O x4. Mother at bedside over night. patient still has complaints of nausea. Denies any vomiting. No acute changes overnight. Spoke with Dr. Schultz and received new orders for patient nausea. Will continue to monitor.
[2025-02-16] MEDS: METOCLOPRAMIDE HCL 10MG/2ML VIAL 10 MG IVP ×4 (06:34→20:53)
[2025-02-16 07:37] VITALS: BP 108/59; PULSE 49; RESP 16; TEMP 36.9; O2SAT 97
[2025-02-16] MEDS: PANTOPRAZOLE 40MG VIAL 40 MG IV ×2 (08:16→20:53)
[2025-02-16 08:19] LABS: Hematocrit 37.5 % (42.0-52.0); Hemoglobin 13.0 g/dL (14.1-18.0); Immature Granulocytes % 0.6 %; Mean Corpuscular HGB Conc 34.7 g/dL (31.8-35.4); Mean Corpuscular Hemoglobin 29.4 pg (27.0-31.2); Mean Corpuscular Volume 84.8 fl (80-94); Nucleated Red Blood Cells % 0 %; Platelet Count 260 K/mm3 (142-424); Red Blood Count 4.42 M/mm3 (4.60-6.20); Red Cell Distribution Width-SD 37.3 fL; White Blood Count 10.3 K/mm3 (4.8-10.8)
[2025-02-16] MEDS: POLYETHYLENE GLYCOL 3350 17 GM PACKET PO (08:21)
[2025-02-16 08:32] LABS: Albumin Level 3.7 g/dl (3.5-5.0); Chloride 104 mmol/L (98-107); Potassium 3.7 mmoL/L (3.5-5.1); Sodium 138 mmol/L (136-145)
[2025-02-16 08:35] LABS: Alanine Aminotransferase 15 U/L (12-78); Albumin/Globulin Ratio 1.3 (1.1-1.8); Alkaline Phosphatase 61 U/L (38-126); Anion Gap 10.7 mEq/L (5-15); Aspartate Amino Transferase 26 U/L (17-59); Bilirubin,Total 0.5 mg/dl (0.2-1.3); Blood Urea Nitrogen 22 mg/dl (9-20); Calcium 9.2 mg/dl (8.4-10.2); Carbon Dioxide 27 mmol/L (22.0-30.0); Creatinine Clearance Estimated 128 mL/min (50-200); Creatinine,Serum 0.70 mg/dl (0.66-1.25); Estimated Glomerular Filt Rate 137 ml/min (>60); GFR (African American) 166 ML/MIN (>60); Globulin 2.8 g/dL (1.3-3.2); Glucose 110 mg/dl (74-100); Total Protein,Serum 6.5 g/dl (6.3-8.2)
[2025-02-16 08:41] LABS: Phosphorous 2.1 mg/dl (2.5-4.5)
[2025-02-16 08:42] LABS: Magnesium 1.9 mg/dl (1.6-2.3)
--- NOTE | 2025-02-16 10:08 | EXP.GE.CONS ---
History of Present Illness *Admission Date: 02/14/25 *Reason for visit:: N/V/D *History of present illness: Mr. Joe is a 24-year-old male with type 1 diabetes, gastroparesis, recurring admissions every few months for intractable nausea and vomiting. Was admitted within the past few days due to nausea and vomiting after his insulin pump ran out. Was not in DKA. Admitted for management. Was feeling better. Discharged earlier this morning after having improved abdominal pain, tolerating p.o. intake and requesting to go home. After getting home, patient had recurrence of nausea and vomiting. Unable to keep anything down and came back to the ER for further evaluation. Treated with multiple doses of droperidol in the ED. In spite of medical management, was unable to tolerate oral intake and medicine was consulted for admission. Workup in the ED showed white count of 14, suspect reactive from stress reaction. Anion gap 11. Glucose 90. Electrolytes and kidney function normal. Fatigued, answering questions but just wanting to sleep. Mother at bedside. Initiated on maintenance fluids. Per admission H & P This is a pleasant 24-year-old male with a long history of type 1 diabetes. Most recent hemoglobin A1c at 7%. Blood glucose levels have been relatively well-controlled. No diagnosis of DKA or HHNK. Developed nausea vomiting and diarrhea a few days ago. Last episode of vomiting and last episode of diarrhea early this morning about 4 AM. No known exposures to others with similar symptoms. No blood in the stool but he has blood in his emesis. No dysphagia no NSAIDs no alcohol. Does smoke marijuana 2 or 3 times a week. Has been on Protonix p.o. 4 to 5 days a week ever since last EGD at [facility] between 6 and 12 months ago. Had episodes of nausea and vomiting previously, initial EGD found gastroparesis and patient report they repeated EGD 6 months later and he reports he thinks he had some gastritis at the time which was improving. He has not been on motility medicine. He did see [facility] in the office once or twice. He did see a dietitian for gastroparesis diet. This time the patient has diarrhea with his nausea and vomiting which is different for him. No diet changes no medication changes. He has been on IV Protonix and got a dose of droperidol and has been on Reglan 10 mg IV ACHS. Patient reports he still having nausea. He has been NPO. No significant findings on [facility] Disclaimer: The information contained in this section may have been updated after the patient was seen, as this information can be updated by other users. Medical History Insulin pump in place Vitamin D deficiency Vitamin B12 deficiency Non compliance with medical treatment Abdominal pain Abdominal pain Diabetes mellitus type 1 Hyperthyroidism Family History Diabetes Cancer Hypertension Social History Smoking Status: Current every day smoker tobacco type: e-cigarettes alcohol intake: never current occupational status: employed Travel in the last 8 weeks?: None Have you lived/traveled outside US in past 30 days?: No Contact w/someone who lives/traveled outside US past 30 days?: No Exposure to someone with infectious disease in past 14 days?: No Do you have a fever (greater than 100.4 F or 38 C)?: No Have you tested positive for COVID-19?: No Exposed to someone with COVID-19 in past 14 days?: No Do you have a sore throat?: No Do you have a cough?: No Do you have any weakness?: Yes Do you have any diarrhea?: No Are you experiencing any unusual bleeding?: No Do you have any muscle aches/pain?: No Do you have any abdominal pain?: No Are you experiencing loss of taste or smell?: No Review of Systems Review of Systems Review of systems:: pertinent systems reviewed and negative unless documented below Constitutional Constitutional: Reports poor appetite Eyes Eyes: Reports system reviewed and no additional complaints, except as documented ENT Ears, Nose, Mouth, and Throat: Reports system reviewed and no additional complaints, except as documented *Cardiovascular Cardiovascular: Reports system reviewed and no additional complaints, except as documented *Respiratory Respiratory: Reports system reviewed and no additional complaints, except as documented *Gastrointestinal Gastrointestinal: Reports abdominal pain, Reports change in bowel habits, Reports diarrhea, Reports hematemesis, Reports loose stools, Reports nausea and Reports vomiting *Genitourinary Genitourinary: Reports system reviewed and no additional complaints, except as documented *Musculoskeletal Musculoskeletal: Reports system reviewed and no additional complaints, except as documented Integumentary/Breasts Skin/Breast: Reports system reviewed and no additional complaints, except as documented *Neurologic Neurologic: Reports system reviewed and no additional complaints, except as documented Psychiatric Psychiatric: Reports system reviewed and no additional complaints, except as documented Endocrine Endocrine: Reports system reviewed and no additional complaints, except as documented Hematologic/Lymphatic Hematologic/Lymphatic: Reports system reviewed and no additional complaints, except as documented Allergic/Immunologic Allergic/Immunologic: Reports system reviewed and no additional complaints, except as documented Meds Home Medications and Allergies Home Medications ?Medication ?Instructions ?Recorded ?Confirmed ?Type blood-glucose sensor (FreeStyle #1 ea 08/18/24 02/14/25 Rx Poli 3 Sensor device) pen needle, diabetic 32 gauge x #1,200 ea 10/23/24 02/14/25 Rx 5/32 insulin lispro 100 unit/mL 0 unit SQ DIRECTED 02/14/25 02/15/25 History subcutaneous pen (Humalog KwikPen (U-100) Insulin) insulin lispro 200 unit/mL (3 mL) 10 - 15 unit SQ AC 02/15/25 02/15/25 History subcutaneous pen (Humalog KwikPen U-200 Insulin) New Prescriptions to Start Prescriptions: Allergies Allergy/AdvReac Type Severity Reaction Status Date / Time No Known Allergies Allergy Verified 01/22/25 13:09 Exam (Inpt) Vital signs and Labs for Last 24 Hours: Temp Pulse Resp BP Pulse Ox O2 Del Method 98.4 F 49 L 16 108/59 L 97 Room Air 02/16/25 07:37 02/16/25 07:37 02/16/25 07:37 02/16/25 07:37 02/16/25 07:37 02/16/25 09:00 Laboratory Results - last 24 hr 02/16/25 08:12: WBC 10.3, RBC 4.42 L, Hgb 13.0 L, Hct 37.5 L, MCV 84.8, MCH 29.4, MCHC 34.7, RDW 12.1, Plt Count 260, MPV 8.1, Neut % (Auto) 75.1, Lymph % (Auto) 16.4, [place] % (Auto) 7.7, Eos % (Auto) 0.0 L, Baso % (Auto) 0.2, Neut # (Auto) 7.7, Lymph # (Auto) 1.7, [place] # (Auto) 0.8, Eos # (Auto) 0.0, Baso # (Auto) 0.0, Sodium 138, Potassium 3.7, Chloride 104, Carbon Dioxide 27, Anion Gap 10.7, BUN 22 H, Creatinine 0.70, Estimated Creat Clear 128, Estimated GFR 137, Est GFR ( Amer) 166, Glucose 110 H, Calcium 9.2, Phosphorus 2.1 L, Magnesium 1.9, Total Bilirubin 0.5, AST 26, ALT 15, Alkaline Phosphatase 61, Total Protein 6.5, Albumin 3.7, Globulin 2.8, Albumin/Globulin Ratio 1.3 I & O for Labs for Last 24 Hours: Intake & Output 02/13/25 02/14/25 02/15/25 02/16/25 11:59 11:59 11:59 11:59 Intake Total 0 20 Output Total 350 0 Balance -350 20 Weight 55.52 kg 55.928 kg Constitutional: no acute distress and cooperative Head: Present normocephalic and atraumatic Eyes: Present as per HPI Respiratory: Present CTA bilaterally Cardiac: Present Reg Rate and Rhythm GI: Present soft, tenderness (Mild tenderness to palpation throughout, more so left upper quadrant left lower quad) and normal bowel sounds (male): Present normal inspection Extremities: Present normal inspection Skin: Present intact Results Labs 02/16/25 08:12 02/16/25 08:12 Labs: Laboratory Results - last 24 hr 02/16/25 08:12: WBC 10.3, RBC 4.42 L, Hgb 13.0 L, Hct 37.5 L, MCV 84.8, MCH 29.4, MCHC 34.7, RDW 12.1, Plt Count 260, MPV 8.1, Neut % (Auto) 75.1, Lymph % (Auto) 16.4, [place] % (Auto) 7.7, Eos % (Auto) 0.0 L, Baso % (Auto) 0.2, Neut # (Auto) 7.7, Lymph # (Auto) 1.7, [place] # (Auto) 0.8, Eos # (Auto) 0.0, Baso # (Auto) 0.0, Sodium 138, Potassium 3.7, Chloride 104, Carbon Dioxide 27, Anion Gap 10.7, BUN 22 H, Creatinine 0.70, Estimated Creat Clear 128, Estimated GFR 137, Est GFR ( Amer) 166, Glucose 110 H, Calcium 9.2, Phosphorus 2.1 L, Magnesium 1.9, Total Bilirubin 0.5, AST 26, ALT 15, Alkaline Phosphatase 61, Total Protein 6.5, Albumin 3.7, Globulin 2.8, Albumin/Globulin Ratio 1.3 Assessment and Plan *Assessment and plan (1) Hyperemesis: Status: Acute Category: Medical Code(s): R11.10 - Vomiting, unspecified (2) Nausea & vomiting: Status: Acute Category: Medical Code(s): R11.2 - Nausea with vomiting, unspecified (3) Diabetic gastroparesis: Status: Acute Category: Medical Code(s): E11.43 - Type 2 diabetes mellitus with diabetic autonomic (poly)neuropathy; K31.84 - Gastroparesis (4) Diabetes mellitus type 1: Status: Acute Qualifiers: Diabetes mellitus complication status: with other specified complication Qualified Code(s): E10.69 - Type 1 diabetes mellitus with other specified complication Category: Medical Code(s): E10.9 - Type 1 diabetes mellitus without complications (5) Diarrhea: Status: Acute Category: Medical Code(s): R19.7 - Diarrhea, unspecified (6) Generalized abdominal pain: Status: Acute Category: Medical Code(s): R10.84 - Generalized abdominal pain Plan 1. N/V/D/abdominal pain/diabetic gastroparesis/intractable nausea and vomiting Patient reports development of nausea vomiting and diarrhea a few days ago. He has had episodes of nausea and vomiting related to his diabetic gastroparesis, recently diagnosed during first of 2 EGDs between 6 and 12 months ago. He has seen a dietitian for gastroparesis diet. He has been on Protonix about 4 5 days a week at home. He does smoke marijuana 2 or 3 days a week. I am unconvinced that this is a cannabis hyperemesis syndrome but there are some patients who are really hypersensitive to it even at occasional use. We discussed given his diabetic gastroparesis and the propensity for that he would be better off avoiding marijuana in the future. No alcohol. No NSAIDs. No blood in his diarrhea. He has had some blood in his emesis. I agree with the IV Protonix. Patient has not been on any motility medications at home. I agree with the addition of the IV Reglan while inpatient. I recommend that upon discharge he goes home with p.o. Reglan and I will plan to see him as an outpatient for continued management of the chronic gastroparesis. I am concerned with the diarrhea this time around that we're talking about an infectious process and recommend diarrhea panel. Will reevaluate in the morning when Dr. Moon has returned. Is still struggling with active nausea and vomiting, may consider repeat EGD.
--- NOTE | 2025-02-16 13:55 | P.PN_ITS ---
Subjective *Date: 02/16/25 *Time: 13:55 Interval history: Continues to have intermittent nausea and vomiting. Somewhat better last night when he took a hot shower. Stable on room air. Vital stable with bradycardia. Has temporary relief with Reglan. Afebrile. Medical Exam Vital signs and Labs for Last 24 Hours: Vital Signs Temp Pulse Resp BP Pulse Ox O2 Del Method 02/16/25 13:00 Room Air 02/16/25 11:00 Room Air 02/16/25 09:00 Room Air 02/16/25 08:00 Room Air 02/16/25 07:37 98.4 F 49 L 16 108/59 L 97 Room Air 02/16/25 06:54 Room Air 02/16/25 05:00 Room Air 02/16/25 04:00 98.5 F 68 16 122/69 100 Room Air 02/16/25 03:00 Room Air 02/16/25 01:00 Room Air 02/15/25 23:55 98.3 F 51 L 16 152/74 H 97 Room Air 02/15/25 23:00 Room Air 02/15/25 21:00 Room Air 02/15/25 19:59 98.7 F 80 16 113/63 100 Room Air 02/15/25 18:50 Room Air 02/15/25 17:00 Room Air 02/15/25 16:00 98.1 F 86 18 136/70 100 Room Air 02/15/25 15:00 Room Air Intake and Output 02/15/25 02/16/25 02/16/25 23:59 07:59 15:59 Intake Total 0 / 20 20 / 20 Output Total 0 / 350 0 / 0 Balance 0 / -330 20 / 20 0 / 20 Intake: Intake, Oral Amount 0 / 0 Intake, Other Amount 20 / 20 Output: Output, Urine Amount 0 / 350 0 / 0 Other: Intake, Other Source Saline Solution Number of Unmeasured Voids 1 1 Weight 55.928 kg Patient Weight 02/16/25 23:59 Weight 55.928 kg Laboratory Results - last 24 hr 02/16/25 08:12: WBC 10.3, RBC 4.42 L, Hgb 13.0 L, Hct 37.5 L, MCV 84.8, MCH 29.4, MCHC 34.7, RDW 12.1, Plt Count 260, MPV 8.1, Neut % (Auto) 75.1, Lymph % (Auto) 16.4, [place] % (Auto) 7.7, Eos % (Auto) 0.0 L, Baso % (Auto) 0.2, Neut # (Auto) 7.7, Lymph # (Auto) 1.7, [place] # (Auto) 0.8, Eos # (Auto) 0.0, Baso # (Auto) 0.0, Sodium 138, Potassium 3.7, Chloride 104, Carbon Dioxide 27, Anion Gap 10.7, BUN 22 H, Creatinine 0.70, Estimated Creat Clear 128, Estimated GFR 137, Est GFR ( Amer) 166, Glucose 110 H, Calcium 9.2, Phosphorus 2.1 L, Magnesium 1.9, Total Bilirubin 0.5, AST 26, ALT 15, Alkaline Phosphatase 61, Total Protein 6.5, Albumin 3.7, Globulin 2.8, Albumin/Globulin Ratio 1.3 I & O for Labs for Last 24 Hours: Intake & Output 02/13/25 02/14/25 02/15/25 02/16/25 23:59 23:59 23:59 23:59 Intake Total 0 / 20 Output Total 350 / 350 0 / 0 Balance -350 / -330 Weight 55.52 kg 55.52 kg 55.928 kg Constitutional: Present mild distress, thin and chronically ill appearing Head: Present atraumatic and normocephalic ENT: Present normal exam Neck: Present normal inspection Respiratory: Present normal respiratory effort; Absent rhonchi, wheezes or crackles Cardiac: Present Regular Rhythm and Bradycardia GI: Present soft, tenderness and normal bowel sounds; Absent distention, guarding or rebound Extremities: Present normal inspection and full ROM Skin: Present intact; Absent erythema Neuro: Present Grossly Intact, alert, awake, oriented x 3 and moves all extremities Assessment and Plan *Assessment and plan (1) Nausea and vomiting in adult: Status: Resolved Category: Medical Code(s): R11.2 - Nausea with vomiting, unspecified (2) Diabetic gastroparesis: Status: Acute Category: Medical Code(s): E11.43 - Type 2 diabetes mellitus with diabetic autonomic (poly)neuropathy; K31.84 - Gastroparesis (3) Diabetes mellitus type 1: Status: Acute Qualifiers: Diabetes mellitus complication status: with other specified complication Qualified Code(s): E10.69 - Type 1 diabetes mellitus with other specified complication Category: Medical Code(s): E10.9 - Type 1 diabetes mellitus without complications (4) Hyperemesis: Status: Acute Category: Medical Code(s): R11.10 - Vomiting, unspecified (5) Diarrhea: Status: Acute Category: Medical Code(s): R19.7 - Diarrhea, unspecified (6) Generalized abdominal pain: Status: Acute Category: Medical Code(s): R10.84 - Generalized abdominal pain Plan Patient is a 24-year-old male with past medical history of type 1 diabetes mellitus with insulin pump who presents to the hospital due to complaints of vomiting after just being discharged this morning for similar admission. Got home and developed intolerance of p.o. intake after eating breakfast and requesting to go home. Due to inability to control nausea and emesis in the ED, medicine consulted for admission. Discussed case with ER provider, request admission due to intractable nausea and vomiting. I decided to admit for continued medical management. Not in DKA at this time. Will trial scheduled Reglan. Problems addressed as follows: # Intractable nausea and vomiting #History of gastroparesis #History of THC use ? Presented with worsening nausea/vomiting and weakness. Was just discharged this morning after feeling better and eating breakfast. ?Labs this morning with Potassium 3.7, BUN 22, creatinine 0.7, Magnesium 1.9, phosphorus 2.1. White count 10. Low concern for infection. Repeat CBC, CMP, magnesium ordered for the morning - Continue Reglan 10 mg IVP ACHS - Continue LR at 100 cc/h - Protonix 40 mg IV BID for gastritis - GI evaluated today. Concern for potential infectious process, recommending stool panel. Diarrhea per my review however did not begin until starting bowel regimen with docusate senna and MiraLAX. # Type 1 diabetes -Recently initiated insulin pump. Not in DKA at this time. Home insulin pump. Fingersticks ACHS -Morning glucose 110 - A1c on admission 7.0 Tobacco abuse -Nicotine patch as needed -Tobacco cessation counseling given Full code Diabetic diet Lovenox 40 mg subcu daily
--- OUTSIDE RECORDS SUMMARY | 2025-02-16 14:28 | XMS_ITS | Encounter Summary ---
Author Organization [facility] Address [address] [place] [address] Care Team Providers Care Calenderer Name Role Phone None, None Primary Care Provider Unavailabl e Mychart, Generic Provider Unavailable Shena Joe MD Unavailable [phone] Suellen Hurley NP Unavailable Reason for Visit * Reason Onset Date Comments Other 01/22/2020 [facility] fax Encounter Details Date Type Department Care Team (Late st Contact Info) Description 01/22/2020 Telephone [facility] - [facility], [place] [address] [place] [address] Shena Lloyd MD [address] [place] [address] Other ([facility] fax) Social History Tobacco Use Types Packs/Day [...] 01/22/2020 6:55 AM EDT Rcvd fax from [employer] for SB to review and sign-placed in box documented in this encounter Plan of Treatment Not on file documented as of this encounter Visit Diagnoses Not on filedocumented in this encounter Care Teams Calenderer Relationship Specialty Start Date End Date None, None [address] [place] [address] PCP - General 04/11/19 [place], Generic Provider 09/01/20 Shena Lloyd MD [address] [place] [id number] Endocrinology/Diabetes/ Metabolism 12/30/20 Suellen Hurley NP [address] [place] [address] Nurse Practitioner Endocrinology/Diabetes/ Metabolism 03/29/21 documented as of this encounter
--- OUTSIDE RECORDS SUMMARY | 2025-02-16 14:28 | XMS_ITS | Encounter Summary ---
Author Organization [facility] Address [address] [place] [address] Care Team Providers Care Insole Lip Turner Name Role Phone None, None Primary Care Provider Unavailabl e Mychart, Generic Provider Unavailable Shena Joe MD Unavailable [phone] Suellen Hurley NP Unavailable Reason for Visit * Reason Comments Medications Refill Encounter Details Date Type Department Care Team (Late st Contact Info) Description 10/19/2020 Refill [facility] [place] [address] [facility] [place] [address] [place] [address] Suellen Hurley NP [address] [place] [address] Medications Refill Social History Tobacco [...] study documented in this encounter Care Teams Insole Lip Turner Relationship Specialty Start Date End Date None, None [address] [place] [address] PCP - General 04/11/19 Mychart, Generic Provider 09/01/20 Shena Lloyd MD [address] [place] [phone] Endocrinology/Diabetes/ Metabolism 12/30/20 Suellen Hurley NP [address] [place] [address] Nurse Practitioner Endocrinology/Diabetes/ Metabolism 03/29/21 documented as of this encounter
--- OUTSIDE RECORDS SUMMARY | 2025-02-16 14:28 | XMS_ITS | Encounter Summary ---
Author Organization [facility] Address [address] [place] [address] Care Team Providers Care Bone Drier Operator Name Role Phone None, None Primary Care Provider Unavailabl e Mychart, Generic Provider Unavailable Shean Joe MD Unavailable [phone] Suellen Hurley NP Unavailable Reason for Visit * Reason Comments Medications Refill Encounter Details Date Type Department Care Team (Late st Contact Info) Description 08/06/2021 Refill [facility] [place] [address] [facility] [place] [address] Suellen Hurley NP [address] [place] [address] Medications Refill Social History Tobacco [...] study documented in this encounter Care Teams Bone Drier Operator Relationship Specialty Start Date End Date None, None [address] [place] [address] [place] [address] PCP - General 04/11/19 Mychart, Generic Provider 09/01/20 Shena Lloyd MD [address] [place] [phone] Endocrinology/Diabetes/ Metabolism 12/30/20 Suellen Hurley NP [address] [place] [address] Nurse Practitioner Endocrinology/Diabetes/ Metabolism 03/29/21 documented as of this encounter
--- OUTSIDE RECORDS SUMMARY | 2025-02-16 14:28 | XMS_ITS | Clinical Summary ---
Author Organization [facility] Address [address] [place] [address] Phone Care Team Providers Care Crab Backer Name Role Phone Unavailable Primary Care Provider [...]
--- OUTSIDE RECORDS SUMMARY | 2025-02-16 14:28 | XMS_ITS | Encounter Summary ---
Author Organization [facility] Address [address] [place] [address] Care Team Providers Care Wire Frame Maker Name Role Phone None, None Primary Care Provider Unavailabl e Mychart, Generic Provider Unavailable Shena Joe MD Unavailable [phone] Suellen Hurley NP Unavailable Reason for Visit * Reason Comments Medications Refill Encounter Details Date Type Department Care Team (Late st Contact Info) Description 04/12/2021 Refill [facility] [place] [address] [facility] [place] [address] Suellen Hurley NP [address] [place] [address] Medications Refill Social History Tobacco [...] study documented in this encounter Care Teams Wire Frame Maker Relationship Specialty Start Date End Date None, None [address] [place] [address] [place] [address] PCP - General 04/11/19 Mychart, Generic Provider 09/01/20 Shena Lloyd MD [address] [place] [phone] Endocrinology/Diabetes/ Metabolism 12/30/20 Suellen Hurley NP [address] [place] [address] Nurse Practitioner Endocrinology/Diabetes/ Metabolism 03/29/21 documented as of this encounter
--- OUTSIDE RECORDS SUMMARY | 2025-02-16 14:28 | XMS_ITS | Clinical Summary ---
Author Organization [facility] Address [address] [place] [address] Care Team Providers Care Oral And Maxillofacial Surgery Resident Name Role Phone Unavailable Primary Care Provider Unavailabl e Source Comments [facility] is fully rolled out with thefollowing exceptions:General Clinical Research [facility] Social History Tobacco Use Types Packs/Day Years [...]
--- OUTSIDE RECORDS SUMMARY | 2025-02-16 14:28 | XMS_ITS | Encounter Summary ---
Author Organization [facility] Address [facility] [place] [address] Care Team Providers Care Lining Marker Name Role Phone None, None Primary Care Provider Unavailabl e Mychart, Generic Provider Unavailable Shena Joe MD Unavailable [phone] Suellen Hurley NP Unavailable Reason for Visit * Reason Onset Date Comments Other 02/13/2020 EYE EXAM Encounter Details Date Type Department Care Team (Late st Contact Info) Description 02/13/2020 Clinical Update [facility] - [facility], [place] [address] [place] [address] [place] [address] Suellen Hurley NP [address] [place] [address] Other (EYE EXAM) Social History [...] on filedocumented in this encounter Care Teams Lining Marker Relationship Specialty Start Date End Date None, None [address] [place] [address] PCP - General 04/11/19 Mychart, Generic Provider 09/01/20 Shena Lloyd MD [address] [place] [phone] Endocrinology/Diabetes/ Metabolism 12/30/20 Suellen Hurley NP [address] [place] [address] Nurse Practitioner Endocrinology/Diabetes/ Metabolism 03/29/21 documented as of this encounter
--- OUTSIDE RECORDS SUMMARY | 2025-02-16 14:28 | XMS_ITS | Clinical Summary ---
Author Organization [facility] Address [address] [place] [address] Care Team Providers Care Tile Shader Name Role Phone Gretchen Angelo APRN Primary Care Provider [phone] Allergies No known active allergies Medications Insulin [...] Description 11/21/2024 2:45 PM EDT Office Visit [facility] [phone] Pavan Cruz MD Type 1 diabetes mellitus [...] drink = 0.6 oz pur e alcohol) [facility] Utilities Answer Date Recorded In the past 12 months has [employer], [employer], oil, or water [employer] threatened to shut off services in your [...] care, and heating? Not very hard 08/15/2024 [facility] of Occupat ional Health - Occupational Stress [...] GED or equivalent No 08/15/2024 Preferred Language Spanish 08/15/2024 PHQ-2 Answer Date Recorded Patient Health [...] Description 03/06/2025 3:00 PM EDT Office Visit [facility] [address] [phone] Pavan Cruz MD [address] [address] Health Maintenance Due Date Last Done Comments [...] Hemoglobin A1C 7.0(A) 4.5 - 5.7 % [facility] Lot Number [id number] [facility] Expiration Date 08/01/2026 [facility] Blood 11/21/2024 2:58 PM EDT us Pavan Cruz MD POINT OF CARE TEST ORD ERABLES Final Result [facility]
[address] [place] [id number], [place] [phone] from Last 3 Months Insurance [employer] [place] Advance Directives * CPR (Attempt to Resuscitate) [...] Of Support Discussed With: Patient Care Teams Tile Shader Relationship Specialty Start Date End Date Gretchen Angelo APRN [address] [place] [address] PCP - General Nurse Practitioner 06/25/23
--- OUTSIDE RECORDS SUMMARY | 2025-02-16 14:28 | XMS_ITS | Clinical Summary ---
Author Organization [facility] Address [address] [place] [address], [address] [place] [address] Care Team Providers Care Sanitation Worker Cleaning Machinery Name Role Phone Unavailable Primary Care Provider [...]
--- OUTSIDE RECORDS SUMMARY | 2025-02-16 14:28 | XMS_ITS | Clinical Summary ---
Author Organization [facility] Address [address] [place] [address] Care Team Providers Care Materials Director Name Role Phone None, None Primary Care Provider Unavailabl e Mychart, Generic Provider Unavailable Shena Joe MD Unavailable [phone] Suellen Hurley NP Unavailable Allergies No known active allergies Medications Blood-Glucose Meter Misc Use 1 Each as instructed 4 times daily (before meals and at bedtime). 1 Each 04/14/2019 4:02 PM EDT 04/14/20 19 Active Insulin [place], Disposable, 31 gauge x 5/16 NeedleIndications :Type [...] to the patient, Quantity 2, Lot Number [id number], Expiration 03/2020 6 mL 1 07/10/20 19 [...] EXTERNAL LAB Alb, Ur 1.30 mg/dL [facility] Alb Creat Ratio 20 0 [...] Lloyd MD URINE ORDERABLES Final Res ult [facility] [address] * (ABNORMAL) RENAL PROFILE (12/30/2020 4:22 [...] g/dL TC EXTERNAL LAB BUN/Creatinine Ratio 13 [facility] Serum (Serum) 12/30/2020 4:2 2 PM EDT 12/30/2020 7:02 PM EDT Shena Lloyd MD CHEMISTRY ORDERABLES Final Result [facility] [address] * LIPID PROFILE (12/30/2020 4:22 PM [...] High HDL 59 40 - 180 mg/dL [facility] Comment: HDL CHOLESTEROL INTERPRETATION: Less than 40 mg/dL Low Greater than 60 mg/dL Desirable Triglycerides 101 0 - 150 mg/dL [facility] Comment: TOTAL TRIGLYCERIDE INTERPRETATION: Less than 150 mg/dL Normal 150-199 mg/dL Borderline HIgh 200-499 mg/dL High Greater or Equal to 500 mg/dL Very High Serum (Serum) 12/30/2020 4:2 2 PM EDT 12/30/2020 7:02 PM EDT Shena Lloyd MD CHEMISTRY ORDERABLES Final Result [facility] [address] * POCT AMB HEMOGLOBIN A1C (12/30/2020 [...] Advance Directives For more information, please contact: [phone] * Full Code (Latest Code Status on File) Date Activated Date Inactivated Comments 04/11/2019 6:39 PM 06/21/2023 10:47 AM No automate d chest compression devices for VAD Patients * Full Code Date Activated Date Inactivated Comments 04/11/2019 6:37 PM 04/11/2019 6:39 PM Care Teams Materials Director Relationship Specialty Start Date End Date None, None [address] [place] [address] PCP - General 04/11/19 Ceferinohart, Generic Provider 09/01/20 Shena Lloyd MD [address] [place] [address] Endocrinology/Diabetes/ Metabolism 12/30/20 Suellen Hurley NP [address] [place] [address] Nurse Practitioner Endocrinology/Diabetes/ Metabolism 03/29/21
[2025-02-16 15:13] LABS: POC Glucose,Bedside 120 (70-110)
--- NOTE | 2025-02-16 15:32 | CARE MANAGER ---
Current Medications Enoxaparin Sodium (Enoxaparin 40mg/0.4ml Syringe) 40 mg SUBCUT DAILY [facility] Stop: 03/17/25 08:59 Last Admin: 02/16/25 08:16 Dose: 40 mg Ketorolac Tromethamine (Ketorolac 30mg/Ml Vial) 30 mg IV Q6HP PRN PRN Reason: Moderate Pain (4-6) Stop: 02/19/25 20:05 Metoclopramide HCl (Metoclopramide Hcl 10mg/2ml Vial) 10 mg IVP ACHS [facility] Stop: 03/17/25 05:59 Last Admin: 02/16/25 11:32 Dose: 10 mg Nicotine (Nicotine 21mg/24hr Patch) 21 mg TD DAILYP PRN PRN Reason: Nicotine Cravings Stop: 03/16/25 20:15 Pantoprazole Sodium (Pantoprazole 40mg Vial) 40 mg IV BID [facility] Stop: 03/16/25 20:59 Last Admin: 02/16/25 08:16 Dose: 40 mg Promethazine HCl (Promethazine Hcl 25mg/Ml 1ml Vial) 25 mg IV Q8HP PRN PRN Reason: Nausea And Vomiting Stop: 03/18/25 00:22 Last Admin: 02/16/25 04:16 Dose: 25 mg Sodium Chloride (Sodium Chloride 0.9% 10ml Vial) 10 ml IV NEEDED PRN PRN Reason: to Dilute Lorazepam inj Stop: 03/16/25 19:22 Last Admin: 02/15/25 09:24 Dose: 10 ml Sodium Chloride (Sodium Chloride 0.9% 10ml Flush Syringe) 10 ml IV NEEDED PRN PRN Reason: Maintain IV Site Stop: 03/17/25 09:48 Sodium Chloride (Sodium Chloride 0.9% 25ml Bag) 25 ml IV NEEDED PRN PRN Reason: for Use with IV Promethazine Stop: 03/18/25 00:22 Last Admin: 02/16/25 04:16 Dose: 25 ml
[2025-02-16 16:00] VITALS: BP 133/68; PULSE 57; RESP 16; TEMP 37.3; O2SAT 99
--- NOTE | 2025-02-16 18:15 | PC.NURSE ---
aox4, has been out of bed periodically throughout the day. jazmín reglan has effectively relieved his nausea.
[2025-02-16 19:58] VITALS: BP 134/62; PULSE 61; RESP 16; TEMP 36.5; O2SAT 98
--- NOTE | 2025-02-17 02:21 | PC.NURSE ---
Pt AOx4. Pt called out around 2300 to report that his glucose had dropped into the 60s. Pt received apple juice with sugar in it. Upon recheck, glucose had increased to 127. Pt continually denies pain or any additional needs. Denies nausea or vomiting this shift. He is currently resting in bed with eyes open. Respirations even and unlabored. Bed is low, locked, and call light is in reach. Pt is aware of need for stool sample and knows to call out after having a bowel movement.
[2025-02-17 03:35] VITALS: BP 144/89; PULSE 65; RESP 16; TEMP 36.8; O2SAT 96; BMI 19.3
[2025-02-17] MEDS: PROMETHAZINE HCL 25MG/ML 1ML VIAL 25 MG IV (03:45)
[2025-02-17] MEDS: METOCLOPRAMIDE HCL 10MG/2ML VIAL 10 MG IVP ×4 (05:42→20:09)
[2025-02-17 06:32] LABS: Hematocrit 38.6 % (42.0-52.0); Hemoglobin 13.1 g/dL (14.1-18.0); Immature Granulocytes % 0.6 %; Mean Corpuscular HGB Conc 33.9 g/dL (31.8-35.4); Mean Corpuscular Hemoglobin 28.8 pg (27.0-31.2); Mean Corpuscular Volume 84.8 fl (80-94); Nucleated Red Blood Cells % 0 %; Platelet Count 245 K/mm3 (142-424); Red Blood Count 4.55 M/mm3 (4.60-6.20); Red Cell Distribution Width-SD 37.2 fL; White Blood Count 10.9 K/mm3 (4.8-10.8)
[2025-02-17 06:33] LABS: Chloride 100 mmol/L (98-107); Sodium 135 mmol/L (136-145)
[2025-02-17 06:35] LABS: Blood Urea Nitrogen 17 mg/dl (9-20); Creatinine Clearance Estimated 112 mL/min (50-200); Creatinine,Serum 0.80 mg/dl (0.66-1.25); Estimated Glomerular Filt Rate 118 ml/min (>60); GFR (African American) 143 ML/MIN (>60)
[2025-02-17 06:36] LABS: Alanine Aminotransferase 13 U/L (12-78); Alkaline Phosphatase 65 U/L (38-126); Aspartate Amino Transferase 23 U/L (17-59); Bilirubin,Total 0.7 mg/dl (0.2-1.3); Calcium 8.5 mg/dl (8.4-10.2); Glucose 126 mg/dl (74-100); Magnesium 1.7 mg/dl (1.6-2.3); Phosphorous 2.9 mg/dl (2.5-4.5); Total Protein,Serum 6.5 g/dl (6.3-8.2)
[2025-02-17 06:37] LABS: Potassium 2.9 mmoL/L (3.5-5.1)
[2025-02-17] MEDS: MAGNESIUM SULFATE IN WATER 2 GM/50 ML PIGGYBACK IV (06:50)
[2025-02-17 07:06] LABS: Anion Gap 10.9 mEq/L (5-15); Carbon Dioxide 27 mmol/L (22.0-30.0)
[2025-02-17 07:07] LABS: Albumin Level 3.6 g/dl (3.5-5.0); Albumin/Globulin Ratio 1.2 (1.1-1.8); Globulin 2.9 g/dL (1.3-3.2)
[2025-02-17] MEDS: POTASSIUM CHLORIDE 20MEQ TAB 40 MEQ PO (07:46)
[2025-02-17] MEDS: PANTOPRAZOLE 40MG VIAL 40 MG IV ×2 (07:46→20:16)
[2025-02-17 08:00] VITALS: BP 93/51; PULSE 52; RESP 18; TEMP 36.7; O2SAT 98
--- NOTE | 2025-02-17 08:19 | PC.NURSE ---
Pt. states he will take his potassium after his nap.
--- NOTE | 2025-02-17 12:44 | DIET.NUTRFU ---
RD saw patient today, still having nausea. Was vomiting upon visit. Compazine IV ordered, provided added zofran. Refusing most meals. Only reported tolerating some clear liquids. Continues on regular diet, has been educated on diabetic diet in past and choices not to follow. Patient is following with Data Visualization Developer, has a insulin pump and dexcom. His A1c has shown improvement 10/2024 was 7.7% and last year this time 9.8%, current A1c 7.0. Offered diet education and declined.
--- NOTE | 2025-02-17 14:04 | P.PN_ITS ---
Subjective *Date: 02/17/25 *Time: 15:34 Interval history: Patient asleep in bed but easily aroused. He reports nausea and vomiting are better but not 100% resolved. He did have an episode of nausea vomiting and diarrhea in the middle of the night again. Unfortunately, patient did not re port his diarrhea episodes to nursing staff at either event. He has been able to keep down fluids and some soft foods. He is otherwise asymptomatic. Exam Data for Last 24 hours Vital signs and Labs for Last 24 Hours: Temp Pulse Resp BP Pulse Ox O2 Del Method 98.1 F 52 L 18 93/51 L 98 Room Air 02/17/25 08:00 02/17/25 08:00 02/17/25 08:00 02/17/25 08:00 02/17/25 08:00 02/17/25 14:04 Laboratory Results - last 24 hr 02/14/25 20:38: POC Glucose 120 H 02/17/25 05:33: WBC 10.9 H, RBC 4.55 L, Hgb 13.1 L, Hct 38.6 L, MCV 84.8, MCH 28.8, MCHC 33.9, RDW 12.2, Plt Count 245, MPV 8.7, Neut % (Auto) 71.3, Lymph % (Auto) 18.0, [place] % (Auto) 9.3, Eos % (Auto) 0.4, Baso % (Auto) 0.4, Neut # ( Auto) 7.8, Lymph # (Auto) 2.0, [place] # (Auto) 1.0, Eos # (Auto) 0.0, Baso # (Auto) 0.0, Sodium 135 L, Potassium 2.9 L* D, Chloride 100, Carbon Dioxide 27, Anion Gap 10.9, BUN 17, Creatinine 0.80, Estimated Creat Clear 112, Estimated GFR 118, Est GFR ( Amer) 143, Glucose 126 H, Calcium 8.5, Phosphorus 2.9 D, Magnesium 1.7 D, Total Bilirubin 0.7, AST 23, ALT 13, Alkaline Phosphatase 65, Total Protein 6.5, Albumin 3.6, Globulin 2.9, Albumin/Globulin Ratio 1.2 I & O for Last 24 hours: Intake & Output 02/15/25 02/16/25 02/17/25 02/18/25 11:59 11:59 11:59 11:59 Intake Total 0 20 Output Total 350 0 150 Balance -350 20 -150 Weight 55.52 kg 55.928 kg 56.064 kg Assessment and Plan *Assessment and plan (1) Generalized abdominal pain: Status: Acute Category: Medical Code(s): R10.84 - Generalized abdominal pain (2) Diarrhea: Status: Acute Category: Medical Code(s): R19.7 - Diarrhea, unspecified (3) Hyperemesis: Status: Acute Category: Medical Code(s): R11.10 - Vomiting, unspecified (4) Nausea & vomiting: Status: Acute Category: Medical Code(s): R11.2 - Nausea with vomiting, unspecified (5) Diabetic gastroparesis: Status: Acute Category: Medical Code(s): E11.43 - Type 2 diabetes mellitus with diabetic autonomic (poly)neuropathy; K31.84 - Gastroparesis (6) Diabetes mellitus type 1: Status: Acute Qualifiers: Diabetes mellitus complication status: with other specified complication Qualified Code(s): E10.69 - Type 1 diabetes mellitus with other specified complication Category: Medical Code(s): E10.9 - Type 1 diabetes mellitus without complications Plan 1. N/V/D/abdominal pain/diabetic gastroparesis/intractable nausea and vomiting Patient reports he is feeling somewhat better and has been able to keep down fluids but did have an episode of nausea vomiting and, he reports diarrhea to me, in the middle of the night again. Unsure when the patient's diarrhea started. His mom reports he has not been taking the stool softeners or the MiraLAX but I am unsure when the diarrhea started. Either way he is still having some nausea and vomiting although it is better significantly than it was. He did get some improvement of his symptoms after a hot shower which can be seen with cannabinoid induced hyperemesis. I recommend the patient go home with Reglan and I am happy to see him in the office in a couple of weeks. I do not think we will get more information from a repeat EGD at this point. He has already seen a dietitian for gastroparesis diet. I cannot elicit if he is actually following the recommendations. I would continue the Protonix. I recommend complete cessation of marijuana. We discussed the available motility medications usable in a patient with gastroparesis. If he has continued improvement on the Reglan we can continue that. Otherwise we might try Gimoti nasal spray.
[2025-02-17 14:13] VITALS: BMI 19.3
[2025-02-17 15:57] VITALS: BP 143/68; PULSE 70; RESP 17; TEMP 36.8; O2SAT 100
--- NOTE | 2025-02-17 16:31 | P.PN_ITS ---
Subjective *Date: 02/17/25 *Time: 17:38 Interval history: Continues to have intermittent nausea and vomiting though feeling somewhat today. Hot shower made him feel better as well overnight. Stable on room air. Potassium low this morning, replacing IV. Asking when he might be able to go home. Encouraged him to advance his p.o. intake first. States understanding. Afebrile. Medical Exam Vital signs and Labs for Last 24 Hours: Vital Signs Temp Pulse Resp BP Pulse Ox O2 Del Method 02/17/25 15:57 98.2 F 70 17 143/68 H 100 Room Air 02/17/25 15:33 Room Air 02/17/25 14:04 Room Air 02/17/25 11:57 Room Air 02/17/25 08:08 Room Air 02/17/25 08:00 98.1 F 52 L 18 93/51 L 98 Room Air 02/17/25 07:50 Room Air 02/17/25 06:35 Room Air 02/17/25 05:00 Room Air 02/17/25 03:35 98.3 F 65 16 144/89 H 96 Room Air 02/17/25 03:00 Room Air 02/17/25 01:00 Room Air 02/16/25 23:00 Room Air 02/16/25 21:00 Room Air 02/16/25 20:00 Room Air 02/16/25 19:58 97.7 F 61 16 134/62 98 Room Air 02/16/25 18:15 Room Air Intake and Output 02/17/25 02/17/25 02/17/25 07:59 15:59 23:59 Intake Total 300 / 300 Output Total 150 / 150 0 / 150 Balance -150 / 150 300 / 150 Intake: Intake, Total IV Amount 300 / 300 KCl 20mEq/100ml 100 ml @ 50 mls 300 / 300 /hr IV Q2H [facility] Rx#:[id number] Output: Output, Urine Amount 0 / 0 0 / 0 Output, Emesis Amount 150 / 150 Other: Number of Voids 1 Number of Unmeasured Voids 3 1 Weight 56.064 kg 56.064 kg Patient Weight 02/17/25 23:59 Weight 56.064 kg Laboratory Results - last 24 hr 02/17/25 05:33: WBC 10.9 H, RBC 4.55 L, Hgb 13.1 L, Hct 38.6 L, MCV 84.8, MCH 28.8, MCHC 33.9, RDW 12.2, Plt Count 245, MPV 8.7, Neut % (Auto) 71.3, Lymph % (Auto) 18.0, [place] % (Auto) 9.3, Eos % (Auto) 0.4, Baso % (Auto) 0.4, Neut # (Auto) 7.8, Lymph # (Auto) 2.0, [place] # (Auto) 1.0, Eos # (Auto) 0.0, Baso # (Auto) 0.0, Sodium 135 L, Potassium 2.9 L* D, Chloride 100, Carbon Dioxide 27, Anion Gap 10.9, BUN 17, Creatinine 0.80, Estimated Creat Clear 112, Estimated GFR 118, Est GFR ( Amer) 143, Glucose 126 H, Calcium 8.5, Phosphorus 2.9 D, Magnesium 1.7 D, Total Bilirubin 0.7, AST 23, ALT 13, Alkaline Phosphatase 65, Total Protein 6.5, Albumin 3.6, Globulin 2.9, Albumin/Globulin Ratio 1.2 I & O for Labs for Last 24 Hours: Intake & Output 02/14/25 02/15/25 02/16/25 02/17/25 23:59 23:59 23:59 23:59 Intake Total 0 / 20 20 / 20 300 / 300 Output Total 350 / 350 0 / 150 150 / 150 Balance -350 / -330 20 / -130 150 / 150 Weight 55.52 kg 55.52 kg 55.928 kg 56.064 kg Constitutional: Present mild distress, thin and chronically ill appearing Head: Present atraumatic and normocephalic ENT: Present normal exam Neck: Present normal inspection Respiratory: Present normal respiratory effort; Absent rhonchi, wheezes or crackles Cardiac: Present Regular Rhythm and Bradycardia GI: Present soft, tenderness and normal bowel sounds; Absent distention, guarding or rebound Extremities: Present normal inspection and full ROM Skin: Present intact; Absent erythema Neuro: Present Grossly Intact, alert, awake, oriented x 3 and moves all extremities Assessment and Plan *Assessment and plan (1) Nausea and vomiting in adult: Status: Resolved Category: Medical Code(s): R11.2 - Nausea with vomiting, unspecified (2) Diabetic gastroparesis: Status: Acute Category: Medical Code(s): E11.43 - Type 2 diabetes mellitus with diabetic autonomic (poly)neuropathy; K31.84 - Gastroparesis (3) Diabetes mellitus type 1: Status: Acute Qualifiers: Diabetes mellitus complication status: with other specified complication Qualified Code(s): E10.69 - Type 1 diabetes mellitus with other specified complication Category: Medical Code(s): E10.9 - Type 1 diabetes mellitus without complications (4) Hyperemesis: Status: Acute Category: Medical Code(s): R11.10 - Vomiting, unspecified (5) Diarrhea: Status: Acute Category: Medical Code(s): R19.7 - Diarrhea, unspecified (6) Generalized abdominal pain: Status: Acute Category: Medical Code(s): R10.84 - Generalized abdominal pain Plan Patient is a 24-year-old male with past medical history of type 1 diabetes mellitus with insulin pump who presents to the hospital due to complaints of vomiting after just being discharged this morning for similar admission. Got home and developed intolerance of p.o. intake after eating breakfast and requesting to go home. Due to inability to control nausea and emesis in the ED, medicine consulted for admission. Discussed case with ER provider, request admission due to intractable nausea and vomiting. I decided to admit for continued medical management. Not in DKA at this time. Continue scheduled R eglan. Advancing diet as tolerated. Continues to require inpatient management. Anticipate discharge tomorrow. Problems addressed as follows: # Intractable nausea and vomiting #History of gastroparesis #History of THC use ? Presented with worsening nausea/vomiting and weakness. Was just discharged this morning after feeling better and eating breakfast. ?Labs this morning with Potassium Potassium 2.9, sodium 135, BUN 17 and creatinine 0.8, morning glucose 126 - Repeat BMP ordered for the afternoon at 4 PM to evaluate improvement in potassium after replacement. Repeat CBC, CMP, magnesium ordered for the morning - Continue Reglan 10 mg IVP ACHS - Discontinue IV fluids, Protonix 40 mg IV BID for gastritis - GI evaluated today. Recommend continuing Reglan per our discussion. Follow- up as an outpatient for further management once tolerating p.o. intake. # Type 1 diabetes -Recently initiated insulin pump. Not in DKA at this time. Home insulin pump. Fingersticks ACHS -Morning glucose 126 - A1c on admission 7.0 Tobacco abuse -Nicotine patch as needed -Tobacco cessation counseling given Full code Diabetic diet Lovenox 40 mg subcu daily
[2025-02-17 17:00] LABS: Anion Gap 16.0 mEq/L (5-15); Blood Urea Nitrogen 14 mg/dl (9-20); Calcium 8.9 mg/dl (8.4-10.2); Carbon Dioxide 22 mmol/L (22.0-30.0); Chloride 102 mmol/L (98-107); Creatinine Clearance Estimated 128 mL/min (50-200); Creatinine,Serum 0.70 mg/dl (0.66-1.25); Estimated Glomerular Filt Rate 137 ml/min (>60); GFR (African American) 166 ML/MIN (>60); Glucose 130 mg/dl (74-100); Potassium 4.0 mmoL/L (3.5-5.1); Sodium 136 mmol/L (136-145)
[2025-02-17 18:26] LABS: Magnesium 2.0 mg/dl (1.6-2.3)
[2025-02-17 20:00] VITALS: BP 128/86; PULSE 71; RESP 20; TEMP 36.8; O2SAT 100
[2025-02-17] MEDS: SODIUM CHLORIDE 0.9% 10ML VIAL 10 ML IV (20:16)
[2025-02-18] VITALS: BP 165/86; PULSE 82; RESP 20; TEMP 37.2; O2SAT 98
[2025-02-18] MEDS: ONDANSETRON 4MG/2ML VIAL 4 MG IV (00:10)
[2025-02-18] MEDS: SODIUM CHLORIDE 0.9% 10ML FLUSH SYRINGE 10 ML IV (00:12)
[2025-02-18 04:00] VITALS: BP 122/63; PULSE 70; RESP 18; TEMP 36.9; O2SAT 97; BMI 18.9
--- NOTE | 2025-02-18 04:23 | PC.WOUNDNOTE ---
Pt is alert and orientated x 4. Pt. is on room air. Pt. has been sleeping a lot this shift. Pt. c/o nausea and several episodes of vomiting around midnight. Pt. is on scheduled Reglan and around midnight received Zofran with relief of the nausea and vomiting. Pt. has had no solid food intake this shift. Has been sipping some PO fluids. Pt. up independently to bathroom and walk around the room. Pt. denies pain. Blod sugars stable and following Dexcom readings. Personal items and call bae in reach. Bed in low and locked position. Safety measures in place.
[2025-02-18] MEDS: METOCLOPRAMIDE HCL 10MG/2ML VIAL 10 MG IVP (05:35)
[2025-02-18 06:07] LABS: Albumin Level 4.3 g/dl (3.5-5.0); Chloride 99 mmol/L (98-107); Potassium 3.9 mmoL/L (3.5-5.1); Sodium 135 mmol/L (136-145)
[2025-02-18 06:10] LABS: Alanine Aminotransferase 13 U/L (12-78); Albumin/Globulin Ratio 2.2 (1.1-1.8); Alkaline Phosphatase 61 U/L (38-126); Anion Gap 15.9 mEq/L (5-15); Aspartate Amino Transferase 21 U/L (17-59); Bilirubin,Total 0.8 mg/dl (0.2-1.3); Blood Urea Nitrogen 18 mg/dl (9-20); Calcium 8.5 mg/dl (8.4-10.2); Carbon Dioxide 24 mmol/L (22.0-30.0); Creatinine Clearance Estimated 109 mL/min (50-200); Creatinine,Serum 0.80 mg/dl (0.66-1.25); Estimated Glomerular Filt Rate 118 ml/min (>60); GFR (African American) 143 ML/MIN (>60); Globulin 2.0 g/dL (1.3-3.2); Glucose 118 mg/dl (74-100); Total Protein,Serum 6.3 g/dl (6.3-8.2)
[2025-02-18 06:15] LABS: Hematocrit 41.4 % (42.0-52.0); Hemoglobin 14.0 g/dL (14.1-18.0); Immature Granulocytes % 1.1 %; Mean Corpuscular HGB Conc 33.8 g/dL (31.8-35.4); Mean Corpuscular Hemoglobin 28.4 pg (27.0-31.2); Mean Corpuscular Volume 84.0 fl (80-94); Nucleated Red Blood Cells % 0 %; Platelet Count 268 K/mm3 (142-424); Red Blood Count 4.93 M/mm3 (4.60-6.20); Red Cell Distribution Width-SD 37.0 fL; White Blood Count 10.6 K/mm3 (4.8-10.8)
[2025-02-18 08:00] VITALS: BP 130/75; PULSE 80; RESP 16; TEMP 37; O2SAT 94
--- NOTE | 2025-02-18 08:21 | EXP.DC.SUM ---
General Admission date:: 02/14/25 Discharge date: 02/18/25 HPI HPI HPI: Mr. Joe is a 24-year-old male with type 1 diabetes, gastroparesis, recurring admissions every few months for intractable nausea and vomiting. Was admitted within the past few days due to nausea and vomiting after his insulin pump ran out. Was not in DKA. Admitted for management. Was feeling better. Discharged earlier this morning after having improved abdominal pain, tolerating p.o. intake and requesting to go home. After getting home, patient had recurrence of nausea and vomiting. Unable to keep anything down and came back to the ER for further evaluation. Treated with multiple doses of droperidol in the ED. In spite of medical management, was unable to tolerate oral intake and medicine was consulted for admission. Workup in the ED showed white count of 14, suspect reactive from stress reaction. Anion gap 11. Glucose 90. Electrolytes and kidney function normal. Fatigued, answering questions but just wanting to sleep. Mother at bedside. Initiated on maintenance fluids. Per admission H & P This is a pleasant 24-year-old male with a long history of type 1 diabetes. Most recent hemoglobin A1c at 7%. Blood glucose levels have been relatively well-controlled. No diagnosis of DKA or HHNK. Developed nausea vomiting and diarrhea a few days ago. Last episode of vomiting and last episode of diarrhea early this morning about 4 AM. No known exposures to others with similar symptoms. No blood in the stool but he has blood in his emesis. No dysphagia no NSAIDs no alcohol. Does smoke marijuana 2 or 3 times a week. Has been on Protonix p.o. 4 to 5 days a week ever since last EGD at [facility] between 6 and 12 months ago. Had episodes of nausea and vomiting previously, initial EGD found gastroparesis and patient report they repeated EGD 6 months later and he reports he thinks he had some gastritis at the time which was improving. He has not been on motility medicine. He did see [facility] in the office once or twice. He did see a dietitian for gastroparesis diet. This time the patient has diarrhea with his nausea and vomiting which is different for him. No diet changes no medication changes. He has been on IV Protonix and got a dose of droperidol and has been on Reglan 10 mg IV ACHS. Patient reports he still having nausea. He has been NPO. No significant findings on KUB. Hospital Course Hospital Course Hospital Course: Patient is a 24-year-old male with past medical history of type 1 diabetes mellitus with insulin pump who presents to the hospital due to complaints of vomiting after just being discharged this morning for similar admission. Got home and developed intolerance of p.o. intake after eating breakfast and requesting to go home. Due to inability to control nausea and emesis in the ED, medicine consulted for admission. Discussed case with ER provider, request admission due to intractable nausea and vomiting. I decided to admit for continued medical management. Not in DKA at this time. Tolerated scheduled Reglan. Had gradual improvement in ability to tolerate p.o. intake. Stable to discharge home. Follow-up with GI as an outpatient. Problems addressed as follows: # Intractable nausea and vomiting #History of gastroparesis #History of THC use ? Presented with worsening nausea/vomiting and weakness. Was just discharged the morning of admission. Gradually been able to advance diet. Has been tolerating Reglan scheduled. Had some electrolyte disturbances with potassium dropping as low as 2.9. Saw gradual improvement with replacement. Stabilized at 3.9 on day of discharge. Continue pantoprazole twice daily for gastritis/GERD component. GI evaluated, recommend continuing Reglan as an outpatient. Follow-up as an outpatient for further management. Will continue Reglan 5 to 10 mg ACHS. Continue pantoprazole daily. Feeling better and requesting to go home along with tolerating breakfast today. No vomiting today. Stable to discharge. # Type 1 diabetes -Recently initiated insulin pump. Not in DKA during admission. Glucose well-controlled during admission. Tolerated home pump. A1c on admission of 7 Tobacco abuse -Nicotine patch as needed. Tobacco cessation counseling given Total time spent on discharge 32 minutes in counseling, documentation, chart review, and direct care with patient. Exam Data for Last 24 hours Vital signs and Labs for Last 24 Hours: Temp Pulse Resp BP Pulse Ox O2 Del Method 98.1 F 52 L 18 93/51 L 98 Room Air 02/17/25 08:00 02/17/25 08:00 02/17/25 08:00 02/17/25 08:00 02/17/25 08:00 02/17/25 11:57 Laboratory Results - last 24 hr 02/14/25 20:38: POC Glucose 120 H 02/17/25 05:33: WBC 10.9 H, RBC 4.55 L, Hgb 13.1 L, Hct 38.6 L, MCV 84.8, MCH 28.8, MCHC 33.9, RDW 12.2, Plt Count 245, MPV 8.7, Neut % (Auto) 71.3, Lymph % (Auto) 18.0, Hawkins % (Auto) 9.3, Eos % (Auto) 0.4, Baso % (Auto) 0.4, Neut # (Auto) 7.8, Lymph # (Auto) 2.0, Hawkins # (Auto) 1.0, Eos # (Auto) 0.0, Baso # (Auto) 0.0, Sodium 135 L, Potassium 2.9 L* D, Chloride 100, Carbon Dioxide 27, Anion Gap 10.9, BUN 17, Creatinine 0.80, Estimated Creat Clear 112, Estimated GFR 118, Est GFR ( Amer) 143, Glucose 126 H, Calcium 8.5, Phosphorus 2.9 D, Magnesium 1.7 D, Total Bilirubin 0.7, AST 23, ALT 13, Alkaline Phosphatase 65, Total Protein 6.5, Albumin 3.6, Globulin 2.9, Albumin/Globulin Ratio 1.2 I & O for Last 24 hours: Intake & Output 02/14/25 02/15/25 02/16/25 02/17/25 23:59 23:59 23:59 23:59 Intake Total 0 / 20 20 Output Total 350 / 350 0 / 150 150 / 150 Balance -350 / -330 20 / -130 -150 / -150 Weight 55.52 kg 55.52 kg 55.928 kg 56.064 kg Constitutional Constitutional: no acute distress, thin, chronically ill appearing and cooperative *Routine HEENT Exam Head: Present normocephalic Eye: Present EOMI and PERRL ENT: Present mucous membranes moist *Routine Neck Exam Neck: Present supple; Absent lymphadenopathy *Routine Respiratory Exam Respiratory: Present CTA bilaterally; Absent rhonchi, wheezes or crackles *Routine Cardiovascular Exam Cardiovascular: Present RRR *Routine Abdominal Exam Abdominal: Present soft and normoactive bowel sounds; Absent tenderness or distended *Routine Rectal Exam Patient deferred: visual exam *Routine Exam Patient deferred: penile exam *Routine Extremities Exam Extremities: Absent cyanosis, clubbing or edema *Routine Skin Exam Skin: Present warm; Absent rash *Routine Neurological Exam Neurological: Present alert, oriented X3 and moving all extremities; Absent altered mental status Routine Psychiatric Exam Psychiatric: Present normal affect; Absent good insight or good judgment Results Data Completed and Pending Labs on day of discharge: Labs from last 24 hours 02/17/25 02/14/25 05:33 20:38 WBC 10.9 H RBC 4.55 L Hgb 13.1 L Hct 38.6 L MCV 84.8 MCH 28.8 MCHC 33.9 RDW 12.2 Plt Count 245 MPV 8.7 Neut % (Auto) 71.3 Lymph % (Auto) 18.0 Hawkins % (Auto) 9.3 Eos % (Auto) 0.4 Baso % (Auto) 0.4 Neut # (Auto) 7.8 Lymph # (Auto) 2.0 Hawkins # (Auto) 1.0 Eos # (Auto) 0.0 Baso # (Auto) 0.0 Sodium 135 L Potassium 2.9 L* D Chloride 100 Carbon Dioxide 27 Anion Gap 10.9 BUN 17 Creatinine 0.80 Estimated Creat Clear 112 Estimated GFR 118 Est GFR ( Amer) 143 Glucose 126 H POC Glucose 120 H Calcium 8.5 Phosphorus 2.9 D Magnesium 1.7 D Total Bilirubin 0.7 AST 23 ALT 13 Alkaline Phosphatase 65 Total Protein 6.5 Albumin 3.6 Globulin 2.9 Albumin/Globulin Ratio 1.2 DS: Diagnosis Discharge Diagnosis (1) Hyperemesis: Status: Acute Code(s): R11.10 - Vomiting, unspecified (2) Nausea & vomiting: Status: Acute Code(s): R11.2 - Nausea with vomiting, unspecified (3) Diabetic gastroparesis: Status: Acute Code(s): E11.43 - Type 2 diabetes mellitus with diabetic autonomic (poly)neuropathy; K31.84 - Gastroparesis (4) Diabetes mellitus type 1: Status: Acute Code(s): E10.9 - Type 1 diabetes mellitus without complications Qualifiers: Diabetes mellitus complication status: with other specified complication Qualified Code(s): E10.69 - Type 1 diabetes mellitus with other specified complication (5) Diarrhea: Status: Acute Code(s): R19.7 - Diarrhea, unspecified (6) Generalized abdominal pain: Status: Acute Code(s): R10.84 - Generalized abdominal pain Meds Home Medications and Allergies Home Medications ?Medication ?Instructions ?Recorded ?Confirmed ?Type blood-glucose sensor (FreeStyle #1 ea 08/18/24 02/14/25 Rx Poli 3 Sensor device) pen needle, diabetic 32 gauge x #1,200 ea 10/23/24 02/14/25 Rx 5/32 insulin lispro 100 unit/mL 0 unit SQ DIRECTED 02/14/25 02/15/25 History subcutaneous pen (Humalog KwikPen (U-100) Insulin) insulin lispro 200 unit/mL (3 mL) 10 - 15 unit SQ AC 02/15/25 02/15/25 History subcutaneous pen (Humalog KwikPen U-200 Insulin) metoclopramide HCl 5 mg tablet 5 - 10 mg (1 - 2 x 5 mg) PO ACHS 02/17/25 Rx (Reglan) 30 days #180 tabs pantoprazole 40 mg tablet,delayed 40 mg PO DAILY #30 tabs 02/17/25 Rx release New Prescriptions to Start Prescriptions: metoclopramide HCl [Reglan] Harshil Schultz pantoprazole Harshil Schultz Allergies Allergy/AdvReac Type Severity Reaction Status Date / Time No Known Allergies Allergy Verified 01/22/25 13:09 Discharge Plan Disposition Patient Disposition: Home, Self-Care Condition: Good Discharge Order Discharge Orders: Discharge Order (Routine); Ordered 02/18/25 Ordered By: Harshil Schultz Follow up Plan Follow up with: Gretchen Angelo APRN [Primary Care Provider, [facility]] - Enter time for follow up Alfredo Moon II, MD [Staff Physician, Gastroenterology] - Enter time for follow up Prescriptions/Medication Reconciliation: New metoclopramide HCl [Reglan] 5 mg tablet 5 - 10 mg PO ACHS 30 Days Qty: 180 0RF pantoprazole 40 mg tablet,delayed release (DR/EC) 40 mg PO DAILY Qty: 30 0RF Continued (DME) FreeStyle Poli 3 Sensor Device See Rx Instructions .Route Qty: 1 11RF Rx Instructions: As directed (DME) pen needle, diabetic 32 gauge x 5/32 needle See Rx Instructions .ROUTE .MEDSUPPLY Qty: 1200 1RF Rx Instructions: As directed insulin lispro [Humalog KwikPen Insulin] 100 unit/mL insulin pen 0 unit SQ DIRECTED Patient Comments: USE DIRECTED WITH INSULIN PUMP - MAX DAILY DOSE OF 100 UNITS Rx Instructions: USE DIRECTED WITH INSULIN PUMP - MAX DAILY DOSE OF 100 UNITS Humalog KwikPen Insulin 200 unit/mL (3 mL) insulin pen 10 - 15 unit SQ AC Patient Comments: ADMINISTER 10 TO 15 UNITS SUBCUTANEOUSLY 3 TIMES A DAY BEFORE A MEAL PER SLIDING SCALE Rx Instructions: ADMINISTER 10 TO 15 UNITS SUBCUTANEOUSLY 3 TIMES A DAY BEFORE A MEAL PER SLIDING SCALE Problem Reconciliation Problems Reviewed?: Yes Patient Discharge Instructions ACTIVITY: Continue current activity DIET: continue same diet and advance to your usual diet Patient Instructions: DI for Nausea -- Adult, DI for Vomiting -- Adult Print Language: Uruguayan Providers Primary Care Provider: Gretchen Angelo Admit Provider: Harshil Schultz Attending Provider: Harshil Schultz
[2025-02-18 08:30] VITALS: O2SAT 97
[2025-02-18] MEDS: PANTOPRAZOLE 40MG VIAL 40 MG IV (08:32)
[2025-02-18] MEDS: SODIUM CHLORIDE 0.9% 10ML VIAL 10 ML IV (08:33)
--- NOTE | 2025-02-19 11:46 | SW/DCPLANNER ---
Spoke with patient on the phone. Patient stated that he is doing well. Patient stated that he is aware of his upcoming appointments. Patient stated that he was able to bean picker his new medicine from clinic pharmacy. Patient stated that he has no concerns or questions at this time. Geneva Larkin
== END 2025-02-18 11:06 | DRG 74 ==
LOC: ER 17:50 → 2ND 20:18
PROVIDERS: Nurse Practitioner; Admitting Provider Internal Medicine Adolescent Medicine; Emergency Provider Student in an Organized Health Care Education/Training Program; PCP Nurse Practitioner; Visit Provider Internal Medicine Adolescent Medicine
DX: E10.43 Type 1 diabetes mellitus with diabetic autonomic (poly)neuropathy (principal); K21.9 Gastro-esophageal reflux disease without esophagitis; K29.70 Gastritis, unspecified, without bleeding; K31.84 Gastroparesis; F12.90 Cannabis use, unspecified, uncomplicated; F17.290 Nicotine dependence, other tobacco product, uncomplicated; R19.7 Diarrhea, unspecified; D72.829 Elevated white blood cell count, unspecified; R00.1 Bradycardia, unspecified; R35.0 Frequency of micturition; Z71.6 Tobacco abuse counseling; Z79.85 Long-term (current) use of injectable non-insulin antidiabetic drugs
CPT/HCPCS: 36415; 74018; 80048; 80053; 81001; 82962; 83036; 83735; 84100; 85025; 93005; 99285; J1650; J1790; J2405; J2470; J2550; J2765; J3475; J3480; J7030; J7120

== ENCOUNTER 2025-03-20 13:00 | Inpatient (IN) | payer OTHER, SELFPAY ==
--- OUTSIDE RECORDS SUMMARY | 2004-02-15 | XMS_ITS | Encounter Summary ---
Author Organization [facility] Address [address] [place] [id number] Care Team Providers Care Intelligence Officer Basic Name Role Phone Unavailable Primary Care Provider Unavailabl e Encounter Details Date Type Department Care Team (Late st Contact Info) Description 02/15/2004 Hospital Encounter [facility] Division of Pediatric Surgery [address] [place] [phone] Social History Tobacco Use Types Packs/Day [...]
--- OUTSIDE RECORDS SUMMARY | 2004-02-15 | XMS_ITS | Encounter Summary ---
Author Organization [facility] Address [address] [place] [address] Care Team Providers Care Manager Pipeline Name Role Phone Unavailable Primary Care Provider Unavailabl e Encounter Details Date Type Department Care Team (Late st Contact Info) Description 02/15/2004 Hospital Encounter [facility] Division of Pediatric Surgery [address] [place] [phone] Social History Tobacco Use Types Packs/Day [...]
--- OUTSIDE RECORDS SUMMARY | 2025-03-06 15:00 | XMS_ITS | Encounter Summary ---
Author Organization [facility] Address [address] [place] [address] Care Team Providers Care Residential Coordinator Name Role Phone Gretchen Angelo APRN Primary Care Provider [phone] Reason for Visit * Reason Comments Type 1 diabetes mellitus with hyperglyce magdaleno Encounter Details Date Type Department Care Team (Late st Contact Info) Description 03/06/2025 3:00 PM EDT Office Visit [facility]OLOG[facility] [address] Pavan Cruz MD [facility] [email or web address] [address] [address] Type 1 diabetes mellitus with hyperglycemia (Primary Dx) Social History Tobacco Use Types Packs/Day Years Used Date Smoking Tobacco: Never Passive Smoke Exposure: Never Smokeless Tobacco: Never Tobacco Cessation:Counseling Given: Not Answered Alcohol Use Standard Drinks/Week Comments Not Currently 1 (1 standard drink = 0.6 oz pur e alcohol) [facility] Utilities Answer Date Recorded In the past 12 months has [employer], gas, oil, or water [employer] threatened to shut off services in your [...] Never 08/14/2024 Overall Financial Resource Strain (CARDIA) Answe r Date Recorded How hard is it for you to pa y for the very basics like food, housing, medical care, and heating? Not very hard 08/15/2024 [facility] - Occupational Stress Questionnaire Answer Date Recorded [...] GED or equivalent No 08/15/2024 Preferred Language Bolivian 08/15/2024 PHQ-2 Answer Date Recorded Patient Health Questionnaire-2 Score 0 08/15/2024 Sex and Gender Information Value Date Recorded Sex Assigned at Not on file Legal Sex Male 5:11 AM EST Gender Identity Not on file Sexual Orientation Not on file documented as of this encounter Last Filed Vital Signs Vital Sign Reading Time Taken Comments Blood Pressure 112/64 03/06/2025 3:06 PM EDT Pulse 82 03/06/2025 3:06 PM EDT Temperature - - Respiratory Rate - - Oxygen Saturation 99% 03/06/2025 3:06 PM EDT Inhaled Oxygen Concentration - - Weight 57.6 kg (127 lb) 03/06/2025 3:06 PM EDT Height 170.2 cm (5' 7 ) 03/06/2025 3:06 PM EDT Body Mass Index 19.89 03/06/2025 3:06 PM EDT documented in this encounter Progress Notes * Pavan Cruz MD - 03/06/2025 3:34 PM EDTAssociated Problem(s): Type 1 diabetes mellitus with hyperglycemia Last eye exam : DUE Last renal work up : UTD EGFR AUG MATHEUS TODAY Last foot check : TODAY Last lipid profile : N/A Assessment : STABLE. A1C OK BUT TOO MANY LOWS BECAUSE HE IS USING U200 IN THE PUMP. IT'S NOT DESIGNED FOR THAT Plan : USE U 100 IN THE PUMP AND GET THE COMPANY TO RESET HIS PUMP * Pavan Cruz MD - 03/06/2025 3:00 PM EDT Images from the original note were not included. Office Note Date: 03/06/2025 Patient Name: Barry Joe : 2000 Chief Complaint Patient presents with Type 1 diabetes mellitus with hyperglycemia History of Present Illness: Barry Joe is a 24 y.o. male who presents for Diabetes type 1. Current RX INSULIN IN ILET PUMP BUT SOMEHOW HE IS USING U200 IN HIS PUMP Bg is checked 288 times per day with dexcom. Insulin doses are adjusted frequently based upon the readings. Patient has occasional hypoglycemia. Patient has been using the system during the last 3 months. The last 2 weeks of dexcom data are reviewed. 7.3 % are low 54.7 % are in range 24.2 % are 180-250 13.8 % are >250 The glycemic pattern shows: NOCTURNAL HYPOS Last A1c: Hemoglobin A1C Date Value Ref Range Status 03/06/2025 7.4 (A) 4.5 - 5.7 % Final 08/14/2024 8.70 (H) 4.80 - 5.60 % Final 09/04/2019 5.6 % Final Changes in health since last visit: ADMISSION FOR HYPERGLYCEMIA. Subjective Review of Systems: Review of Systems Constitutional: Negative for unexpected weight change. The following portions of the patient's history were reviewed and updated as appropriate: allergies, current medications, past family history, past medical history, past social history, past surgicalhistory, and problem list. Objective Visit Vitals BP 112/64 (BP Location: Left arm, Patient Position: Sitting) Pulse 82 Ht 170.2 cm (67 ) Wt 57.6 kg (127 lb) SpO2 99% BMI 19.89 kg/m?? Physical Exam: Physical Exam Vitals reviewed. Constitutional: Appearance: Normal appearance. He is normal weight. Cardiovascular: Pulses: Dorsalis pedis pulses are 2+ on the right side and 2+ on the left side. Posterior tibial pulses are 2+ on the right side and 2+ on the left side. Musculoskeletal: Right foot: Normal range of motion. No deformity, bunion, Charcot foot, foot drop or prominent metatarsal heads. Left foot: Normal range of motion. No deformity, bunion, Charcot foot, foot drop or prominent metatarsal heads. Feet: Right foot: Protective Sensation: 10 sites tested. 10 sites sensed. Skin integrity: Skin integrity normal. Toenail Condition: Right toenails are normal. Left foot: Protective Sensation: 10 sites tested. 10 sites sensed. Skin integrity: Skin integrity normal. Toenail Condition: Left toenails are normal. Comments: Diabetic Foot Exam Performed Neurological: Mental Status: He is alert. Psychiatric: Mood and Affect: Mood normal. Behavior: Behavior normal. Thought Content: Thought content normal. Judgment: Judgment normal. Assessment / Plan Assessment & Plan: Problem List Items Addressed This Visit Type 1 diabetes mellitus with hyperglycemia - Primary Current Assessment & Plan Last eye exam : DUE Last renal work up : UTD EGFR AUG MATHEUS TODAY Last foot check : TODAY Last lipid profile : N/A Assessment : STABLE. A1C OK BUT TOO MANY LOWS BECAUSE HE IS USING U200 IN THE PUMP. IT'S NOT DESIGNED FOR THAT Plan : USE U 100 IN THE PUMP AND GET THE COMPANY TO RESET HIS PUMP Relevant Medications Continuous Glucose Sensor (FreeStyle Poli 3 Plus Sensor) Insulin Glargine, 2 Unit Dial, (Toujeo Max SoloStar) 300 UNIT/ML solution pen- injector injection Glucagon 1 MG/0.2ML solution auto-injector Insulin Lispro (humaLOG) 100 UNIT/ML injection Other Relevant Orders POC Glucose, Blood (Completed) POC Glycosylated Hemoglobin (Hb A1C) (Completed) Electronically signed by : Pavan Cruz MD 03/06/2025 documented in this encounter Plan of Treatment Upcoming Encounters Date Type Department Care Team (Late st Contact Info) Description 09/07/2025 9:45 AM EST Office Visit [facility] ENDOCRINOLOGY [address] [address] Pavan Cruz MD [address] [address] documented as of this encounter Procedures Procedure Name Priority Date/Time Associated Diagnosis Comments MICROALBUMIN / CREATININE URINE RATIO Routine 03/06/2025 3:38 PM EDT Type 1 diabetes mellitus with hyperglycemia POCT GLUCOSE, BLD (NON STRIP) Routine 03/06/2025 3:18 PM EDT Type 1 diabetes mellitus with hyperglycemia POCT GLYCOSYLATED HEMOGLOBIN (HGB A1C) Routine 03/06/2025 3:17 PM EDT Type 1 diabetes mellitus with hyperglycemia documented in this encounter Results * Microalbumin / Creatinine Urine Ratio - Urine, Clean Catch (03/06/2025 3:38 PM EDT) Microalbumin/C reatinine Ratio 03/07/2025 2:54 AM EDT [facility] Comment:Unable to calculate Creatinine, Urine 251.3 mg/dL 03/07/2025 2:54 AM EDT [facility] Microalbumin, Urine <1.2 mg/dL 03/07/2025 2:54 AM EDT [facility] Urine Urine specimen obtained by clean catch procedure / Unknown Collection / Unknown 03/06/2025 3:38 PM EDT 03/06/2025 3:38 PM EDT us Pavan Cruz MD URINE ORDERABLES Final Result [facility]
[address] [place] [address], * (ABNORMAL) POC Glucose, Blood (03/06/2025 3:18 PM EDT) Glucose 182(A) 70 - 130 mg/dL Lot Number [id number] Expiration Date 07/29/2025 Blood 03/06/2025 3:18 PM EDT us Pavan Cruz MD POINT OF CARE TEST ORD ERABLES Final Result * (ABNORMAL) POC Glycosylated Hemoglobin (Hb A1C) (03/06/2025 3:17 PM EDT) Hemoglobin A1C 7.4(A) 4.5 - 5.7 % [facility] Lot Number [id number] [facility] Expiration Date 10/29/2026 [facility] Blood 03/06/2025 3:17 PM EDT Pavan Cruz MD POINT OF CARE TEST ORD ERABLES Final Result [facility]
[address] [place] [address], documented in this encounter Visit Diagnoses Diagnosis Type 1 diabetes mellitus with hyperglycemia- Primary documented in this encounter Care Teams Residential Coordinator Relationship Specialty Start Date End Date Gretchen Angelo, BUSINESS ASST [address] [place] [address] PCP - General Nurse Practitioner 06/25/23 documented as of this encounter
--- OUTSIDE RECORDS SUMMARY | 2025-03-06 15:00 | XMS_ITS | Encounter Summary ---
Author Organization [facility] Address [address] [place] [address] Care Team Providers Care Race Starter Name Role Phone Gretchen Angelo APRN Primary Care Provider [phone] Reason for Visit * Reason Comments Type 1 diabetes mellitus with hyperglyce magdaleno Encounter Details Date Type Department Care Team (Late st Contact Info) Description 03/06/2025 3:00 PM EDT Office Visit [facility] ENDOCR[facility] [address] Pavan Cruz MD [facility] [email or web address] [address] [address] Type 1 diabetes mellitus with hyperglycemia (Primary Dx) Social History Tobacco Use Types Packs/Day Years Used Date Smoking Tobacco: Never Passive Smoke Exposure: Never Smokeless Tobacco: Never Tobacco Cessation:Counseling Given: Not Answered Alcohol Use Standard Drinks/Week Comments Not Currently 1 (1 standard drink = 0.6 oz pur e alcohol) [facility] Utilities Answer Date Recorded In the past 12 months has [employer], gas, oil, or water [employer] threatened to shut off services in your [...] care, and heating? Not very hard 08/15/2024 [facility] - Occupational Stress Questionnaire Answer Date [...] GED or equivalent No 08/15/2024 Preferred Language Israeli 08/15/2024 PHQ-2 Answer Date Recorded Patient Health [...] Description 09/07/2025 9:45 AM EST Office Visit [facility] ENDOCRIN[facility] [address] [phone] Pavan Cruz MD [address] [address] documented as of this encounter Procedures Procedure [...] Microalbumin/C reatinine Ratio 03/07/2025 2:54 AM EDT LABORATORY Comment:Unable to calculate Creatinine, Urine 251.3 mg/dL 03/07/2025 2:54 AM EDT LABORATORY Microalbumin, Urine <1.2 mg/dL 03/07/2025 2:54 AM EDT LABORATORY Urine Urine specimen obtained by clean catch procedure / Unknown Collection / Unknown 03/06/2025 3:38 PM EDT 03/06/2025 3:38 PM EDT us Pavan Cruz MD URINE ORDERABLES Final Result LABORATORY
[address] [place] [address], * (ABNORMAL) POC Glucose, Blood (03/06/2025 3:18 PM EDT) Glucose 182(A) 70 - 130 mg/dL Lot Number [id number] Expiration Date 07/29/2025 Blood 03/06/2025 3:18 PM EDT us Pavan Cruz MD POINT OF CARE TEST ORD ERABLES Final Result * (ABNORMAL) POC Glycosylated Hemoglobin (Hb A1C) (03/06/2025 3:17 PM EDT) Hemoglobin A1C 7.4(A) 4.5 - 5.7 % [facility] Lot Number [id number] [facility] Expiration Date 10/29/2026 [facility] Blood 03/06/2025 3:17 PM EDT Pavan Cruz MD POINT OF CARE TEST ORD ERABLES Final Result [facility]
[address] [place] [address], documented in this encounter Visit Diagnoses Diagnosis Type 1 diabetes mellitus with hyperglycemia- Primary documented in this encounter Care Teams Race Starter Relationship Specialty Start Date End Date Gretchen Angelo, TELEVISION TUBE INSPECTOR [address] [address] PCP - General Nurse Practitioner 06/25/23 documented as of this encounter
[2025-03-20] VITALS (14 sets, daily range): BP systolic 103–180; BP diastolic 53–78; PULSE 72–120; RESP 13–20; TEMP 36.7–37.4; O2SAT 95–100; BMI 19.8; BMI 17.7
--- NOTE | 2025-03-20 13:13 | PC.NURSE ---
Patients FSBS is 451
--- OUTSIDE RECORDS SUMMARY | 2025-03-20 13:15 | XMS_ITS | Clinical Summary ---
Author Organization [facility] Address [address] [place] [address], [address] [place] [address] Care Team Providers Care Sap Crm Developer Name Role Phone Unavailable Primary Care Provider [...]
--- OUTSIDE RECORDS SUMMARY | 2025-03-20 13:15 | XMS_ITS | Encounter Summary ---
Author Organization [facility] Address [address] [place] [address] Care Team Providers Care Fire Protection Engineer Name Role Phone None, None Primary Care Provider Unavailabl e Mychart, Generic Provider Unavailable Shena Joe MD Unavailable [phone] Suellen Hurley NP Unavailable Reason for Visit * Reason Onset Date Comments Other 01/22/2020 [employer] fax Encounter Details Date Type Department Care Team (Late st Contact Info) Description 01/22/2020 Telephone [facility] - [facility], [employer] [address] [place] [address] Shena Lloyd MD [address] [place] [address] Other ([employer] fax) Social History Tobacco Use Types Packs/Day [...] 01/22/2020 6:55 AM EDT Rcvd fax from [employer] for SB to review and sign-placed in box documented in this encounter Plan of Treatment Not on file documented as of this encounter Visit Diagnoses Not on filedocumented in this encounter Care Teams Fire Protection Engineer Relationship Specialty Start Date End Date None, None [address] [place] [address] PCP - General 04/11/19 [place], Generic Provider 09/01/20 Shena Lloyd MD [address] [place] [phone] Endocrinology/Diabetes/ Metabolism 12/30/20 Suellen Hurley NP [address] [place] [address] Nurse Practitioner Endocrinology/Diabetes/ Metabolism 03/29/21 documented as of this encounter
--- OUTSIDE RECORDS SUMMARY | 2025-03-20 13:15 | XMS_ITS | Encounter Summary ---
Author Organization [facility] Address [address] [place] [address] Care Team Providers Care Trim Stencil Maker Name Role Phone Gretchen Angelo APRN Primary Care Provider [phone] Encounter Details Date Type Department Care Team (Late st Contact Info) Description 03/19/2025 Refill [facility] ENDOCRINOLOGY [address] [facility] [address] [place] [address] Pavan Cruz MD [address] [facility] [address] [place] [address] Social History Tobacco Use Types Packs/Day Years Used Date Smoking Tobacco: Never Passive Smoke Exposure: Never Smokeless Tobacco: Never Alcohol Use Standard Drinks/Week Comments Not Currently 1 (1 standard drink = 0.6 oz pur e alcohol) [facility] Utilities Answer Date Recorded In the past 12 months has [employer], gas, oil, or water [employer] threatened to shut off services in your [...] care, and heating? Not very hard 08/15/2024 [facility] of Occupat ional Health - Occupational Stress [...] GED or equivalent No 08/15/2024 Preferred Language Stateless 08/15/2024 PHQ-2 Answer Date Recorded Patient Health Questionnaire-2 Score 0 08/15/2024 Sex and Gender Information Value Date Recorded Sex Assigned at Not on file Legal Sex Male 5:11 AM EST Gender Identity Not on file Sexual Orientation Not on file documented as of this encounter Miscellaneous Notes * Telephone Encounter - Laurel Padilla MA - 03/19/2025 1:36 PM EDT Rx Refill Note Requested Prescriptions Pending Prescriptions Disp Refills Insulin Lispro (humaLOG) 100 UNIT/ML injection 21 mL 2 Si UNITS PER DAY VIA A PUMP Last office visit with prescribing clinician: 03/06/2025 Next office visit with prescribing clinician: 09/07/2025 Laurel Padilla MA 03/19/25, 13:36 EDT * Telephone Encounter - Suellen Lord RegSched Rep - 03/19/2025 1:11 PM EDT Patient called office, stated that he is needing refill on humalog vial for his insulin pump. Said that he would like this sent to [facility] pharmacy in [place]. documented in this encounter Plan of Treatment Upcoming Encounters Date Type Department Care Team (Late st Contact Info) Description 09/07/2025 9:45 AM EST Office Visit [facility] ENDOCRINOLOGY [address] [phone] Pavan Cruz MD [address] [address] documented as of this encounter Visit Diagnoses Not on filedocumented in this encounter Care Teams Trim Stencil Maker Relationship Specialty Start Date End Date Gretchen Angelo, BREAKING MACHINE OPERATOR [address] [place] [address] PCP - General Nurse Practitioner 06/25/23 documented as of this encounter
--- OUTSIDE RECORDS SUMMARY | 2025-03-20 13:15 | XMS_ITS | Encounter Summary ---
Author Organization [facility] Address [facility] [place] [address] Care Team Providers Care Registered Sales Assistant Name Role Phone None, None Primary Care Provider Unavailabl e Mychart, Generic Provider Unavailable Shena Joe MD Unavailable [phone] Suellen Hurley NP Unavailable Reason for Visit * Reason Onset Date Comments Other 02/13/2020 EYE EXAM Encounter Details Date Type Department Care Team (Late st Contact Info) Description 02/13/2020 Clinical Update [facility] - [facility], [place] [address] [place] [address] Suellen Hurley NP [address] [place] [address] Other (EYE EXAM) Social History [...] on filedocumented in this encounter Care Teams Registered Sales Assistant Relationship Specialty Start Date End Date None, None [address] [place] [address] PCP - General 04/11/19 Mychart, Generic Provider 09/01/20 Shena Lloyd MD [address] [place] [phone] Endocrinology/Diabetes/ Metabolism 12/30/20 Suellen Hurley NP [address] [place] [address] Nurse Practitioner Endocrinology/Diabetes/ Metabolism 03/29/21 documented as of this encounter
--- OUTSIDE RECORDS SUMMARY | 2025-03-20 13:15 | XMS_ITS | Encounter Summary ---
Author Organization [facility] Address [address] [place] [address] Care Team Providers Care Mobile Security Architect Name Role Phone Gretchen Angelo APRN Primary Care Provider [phone] Encounter Details Date Type Department Care Team (Latest Contact Info) Description 03/06/2025 Travel Social History Tobacco Use Types Packs/Day Years Used Date Smoking Tobacco: Never Passive Smoke Exposure: Never Smokeless Tobacco: Never Alcohol Use Standard Drinks/Week Comments Not Currently 1 (1 standard drink = 0.6 oz pur e alcohol) [facility] Utilities Answer Date Recorded In the past 12 months has [employer] electric, gas, oil, or water [employer] threatened to shut off services in your [...] care, and heating? Not very hard 08/15/2024 [facility] [place] of Occupat ional Health - Occupational Stress [...] GED or equivalent No 08/15/2024 Preferred Language Nauruan 08/15/2024 PHQ-2 Answer Date Recorded Patient Health Questionnaire-2 Score 0 08/15/2024 Sex and Gender Information Value Date Recorded Sex Assigned at Not on file Legal Sex Male 5:11 AM EST Gender Identity Not on file Sexual Orientation Not on file documented as of this encounter Plan of Treatment Upcoming Encounters Date Type Department Care Team (Late st Contact Info) Description 09/07/2025 9:45 AM EST Office Visit [facility] ENDOCRINOLOGY [address] [phone] Pavan Cruz MD [address] [address] documented as of this encounter Visit Diagnoses Not on filedocumented in this encounter Care Teams Mobile Security Architect Relationship Specialty Start Date End Date Gretchen Angelo APRN [address] [place] [address] PCP - General Nurse Practitioner 06/25/23 documented as of this encounter
--- OUTSIDE RECORDS SUMMARY | 2025-03-20 13:15 | XMS_ITS | Encounter Summary ---
Author Organization [facility] Address [address] [place] [address] Care Team Providers Care Creative Services Designer Name Role Phone Gretchen Angelo APRN Primary Care Provider [phone] Encounter Details Date Type Department Care Team (Late st Contact Info) Description 03/09/2025 Results Follow-Up [facility] ENDOCRINOLOGY [address] [address] Pavan Cruz MD [facility] [employer] [place] [address] Social History Tobacco Use Types Packs/Day Years Used Date Smoking Tobacco: Never Passive Smoke Exposure: Never Smokeless Tobacco: Never Alcohol Use Standard Drinks/Week Comments Not Currently 1 (1 standard drink = 0.6 oz pur e alcohol) [facility] Utilities Answer Date Recorded In the past 12 months has [employer], gas, oil, or water [employer] threatened to shut off services in your [...] care, and heating? Not very hard 08/15/2024 [facility] of Occupat ional Health - Occupational Stress [...] Description 09/07/2025 9:45 AM EST Office Visit [facility] END[facility]OLOG[facility] [address] [phone] Pavan Cruz MD [address] [employer] [address] [address] documented as of this encounter Visit Diagnoses Not on filedocumented in this encounter Care Teams Creative Services Designer Relationship Specialty Start Date End Date Gretchen Angelo APRN [address] [place] [address] PCP - General Nurse Practitioner 06/25/23 documented as of this encounter
--- OUTSIDE RECORDS SUMMARY | 2025-03-20 13:15 | XMS_ITS | Clinical Summary ---
Author Organization [facility] Address [address] [place] [address] Phone Care Team Providers Care Joiner Helper Name Role Phone Unavailable Primary Care Provider [...] - 19+ 3-dose series) 12/19/2018 COVID-19 Vaccine ( - 2023-2 5 season) 2025 Influenza Vaccine (#1) 2025 05/03/2022 Meningococcal B Vaccine Aged Out No l onger eligible based on patient's age to complete this topic Pneumococcal Vaccine 0-49 Aged Out No longer eligible based on patient's age to complete this topic
--- OUTSIDE RECORDS SUMMARY | 2025-03-20 13:16 | XMS_ITS | Encounter Summary ---
Author Organization [facility] Address [address] [place] [address] Care Team Providers Care Laundry Tub Maker Name Role Phone None, None Primary Care Provider Unavailabl e Mychart, Generic Provider Unavailable Shena Joe MD Unavailable [phone] Suellen Hurley NP Unavailable Reason for Visit * Reason Comments Medications Refill Encounter Details Date Type Department Care Team (Late st Contact Info) Description 10/19/2020 Refill [facility] [place] [address] [facility] [place] [address] Suellen Hurley NP [address] [place] [address] Medications Refill Social History Tobacco [...] study documented in this encounter Care Teams Laundry Tub Maker Relationship Specialty Start Date End Date None, None [address] [place] [address] PCP - General 04/11/19 Mychart, Generic Provider 09/01/20 Shena Lloyd MD [address] [place] [phone] Endocrinology/Diabetes/ Metabolism 12/30/20 Suellen Hurley NP [address] [place] [address] Nurse Practitioner Endocrinology/Diabetes/ Metabolism 03/29/21 documented as of this encounter
--- OUTSIDE RECORDS SUMMARY | 2025-03-20 13:16 | XMS_ITS | Encounter Summary ---
Author Organization The [facility] Address [address] [place] [address] Care Team Providers Care Physician [facility] Name Role Phone None, None Primary Care Provider Unavailabl e Mychart, Generic Provider Unavailable Shena Joe MD Unavailable [phone] Suellen Hurley NP Unavailable Reason for Visit * Reason Comments Medications Refill Encounter Details Date Type Department Care Team (Late st Contact Info) Description 08/06/2021 Refill [facility] [place] [address] [place] [address] Suellen Hurley NP [address] [place] [address] Medications Refill Social History Tobacco [...] study documented in this encounter Care Teams Physician [facility] Relationship Specialty Start Date End Date None, None [address] [place] [address] [place] [address] PCP - General 04/11/19 Mychart, Generic Provider 09/01/20 Shena Lloyd MD [address] [place] [address] Endocrinology/Diabetes/ Metabolism 12/30/20 Suellen Hurley NP [address] [place] [address] Nurse Practitioner Endocrinology/Diabetes/ Metabolism 03/29/21 documented as of this encounter
--- OUTSIDE RECORDS SUMMARY | 2025-03-20 13:16 | XMS_ITS | Encounter Summary ---
Author Organization [facility] Address [address] [place] [address] Care Team Providers Care In Class Special Education Teacher Name Role Phone None, None Primary Care Provider Unavailabl e Mychart, Generic Provider Unavailable Shena Joe MD Unavailable [phone] Suellen Hurley NP Unavailable Reason for Visit * Reason Comments Medications Refill Encounter Details Date Type Department Care Team (Late st Contact Info) Description 04/12/2021 Refill [facility] [place] [address] [facility] [place] [place] [address] [place] [address] Suellen Hurley NP [address] [place] [address] Medications Refill Social History Tobacco [...] study documented in this encounter Care Teams In Class Special Education Teacher Relationship Specialty Start Date End Date None, None [address] [place] [address] [place] [address] PCP - General 04/11/19 Mychart, Generic Provider 09/01/20 Shena Lloyd MD [address] [place] [address] Endocrinology/Diabetes/ Metabolism 12/30/20 Suellen Hurley NP [address] [place] [address] Nurse Practitioner Endocrinology/Diabetes/ Metabolism 03/29/21 documented as of this encounter
--- OUTSIDE RECORDS SUMMARY | 2025-03-20 13:16 | XMS_ITS | Clinical Summary ---
Author Organization [facility] Address [address] [place] [address] Care Team Providers Care Flight Crew Time Clerk Name Role Phone Gretchen Angelo APRN Primary Care Provider [phone] Allergies No known active allergies Medications glucose blood test strip Use as instructed [...] 1 tablet by mouth Daily. 30 tablet 01/10/20 24 Active Continuous Glucose Sensor (FreeStyle [...] As Directed. Use as directed 100 each 11 08/15/19 25 Active Insulin Glargine, 2 Unit Dial, (Beaumonikarena Parker BrittanyoStar) 300 UNIT/ML solution pen-injector injection Inject 50 [...] tablet by mouth Daily. 11/21/19 25 Active Insulin Lispro (humaLOG) 100 UNIT/ML injection 67 UNITS PER DAY VIA A PUMP 20 mL 2 03/19/20 25 Active Insulin Lispro (humaLOG) 100 UNIT/ML injection Inject 10 Units under the skin into the appropriate area as directed 3 (Three) Times a Day Before Meals. 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 It's treated with insulin. Esophagitis 06/25/2023 Moderate malnutrition 06/25/2023 Type 1 diabetes mellitus with hyperglycemia 06/15 Assessment & Plan (03/06/2025 3:34 PM EDT): Last eye exam : DUE Last renal work up : UTD EGFR AUG MATHEUS TODAY Last foot check : TODAY Last lipid profile : N/A Assessment : STABLE. A1C OK BUT TOO MANY LOWS BECAUSE HE IS USING U200 IN THE PUMP. IT'S NOT DESIGNED FOR THAT Plan : USE U 100 IN THE PUMP AND GET THE COMPANY TO RESET HIS PUMP Assessment & Plan (11/21/2024 3:03 PM EDT): Eyes- way over due Kidneys and feet are fine A1c is so much better. Plan : no viniciusnes Assessment & Plan (08/21/2024 3:05 PM EST): [...] Encounters Date Type Department Care Team Description 03/19/2025 Refill [facility] ENDOCRINOLOGY [address] [place] [address] Pavan Cruz MD 03/09/2025 Results Follow-Up [facility] ENDOCRINOLOG[facility] [address] [address] Pavan Cruz MD 03/06/2025 3:00 PM EDT Office Visit [facility] ENDOCRIN[facility] [address] [address] Pavan Cruz MD Type 1 diabetes mellitus with hyperglycemia (Primary Dx) 03/06/2025 Travel from Last 3 Months Family History [...] drink = 0.6 oz pur e alcohol) [facility] Utilities Answer Date Recorded In the past 12 months has th e electric, gas, oil, or water company threatened to shut off services in your [...] care, and heating? Not very hard 08/15/2024 [facility] of Occupat ional Health - Occupational Stress [...] GED or equivalent No 08/15/2024 Preferred Language Cypriot 08/15/2024 PHQ-2 Answer Date Recorded Patient Health [...] Pulse 82 03/06/2025 3:06 PM EDT Temperature 36.6 C (97.9 F) 08/16/2024 12:00 PM EST Respiratory Rate 18 08/16/2024 12:00 PM EST Oxygen Saturation 99% 03/06/2025 3:06 PM EDT Inhaled Oxygen Concentration - - Weight 57.6 kg (127 lb) 03/06/2025 3:06 PM EDT Height 170.2 cm (5' 7 ) 03/06/2025 3:06 PM EDT Body Mass Index 19.89 03/06/2025 3:06 PM EDT Plan of Treatment Upcoming Encounters Date Type Department Care Team (Late st Contact Info) Description 09/07/2025 9:45 AM EST Office Visit [facility] END[facility]CR[facility] [address] [facility] [address] [place] [address] Pavan Cruz MD 177 [facility] [address] [place] [address] Health Maintenance Due Date Last Done Comments DIABETIC EYE EXAM 12/19/2009 Pneumococcal Vaccine 0-49 (1 of 2 - PCV) 12/19/2018 TDAP/TD VACCINES (2 - Td or Tdap) 02/14/2021 011 ANNUAL PHYSICAL 07/03/2023 HEPATITIS C SCREENING 07/03/2023 COVID-19 Vaccine (2023-2 5 season) 2025 INFLUENZA VACCINE 04/15/2025 05/03/2022 HEMOGLOBIN A1C 09/06/2025 03/06/2025, 05/0 03/2025, 08/14/2024, Additional history exists DIABETIC FOOT EXAM 03/06/2026 03/06/2025, 03/06/2025 URINE MICROALBUMIN-CREATININ E RATIO (uACR) 03/07/2026 03/07/2025 Hepatitis B Completed 06/18/2000, 01/14, 1999 Procedures [...] hyperglycemia from Last 3 Months Results * Microalbumin / Creatinine Urine Ratio - Urine, Clean Catch (03/06/2025 3:38 PM EDT) Microalbumin/C reatinine Ratio 03/07/2025 2:54 AM EDT [facility] Comment:Unable to calculate Creatinine, Urine 251.3 mg/dL 03/07/2025 2:54 AM EDT [facility] Microalbumin, Urine <1.2 mg/dL 03/07/2025 2:54 AM EDT [facility] Urine Urine specimen obtained by clean catch procedure / Unknown Collection / Unknown 03/06/2025 3:38 PM EDT 03/06/2025 3:38 PM EDT us Pavan Cruz MD URINE ORDERABLES Final Result [facility]
[address] [place] [address], [place] [phone] * (ABNORMAL) POC Glucose, Blood (03/06/2025 3:18 PM EDT) Glucose 182(A) 70 - 130 mg/dL Lot Number [id number] Expiration Date 07/29/2025 Blood 03/06/2025 3:18 PM EDT us Pavan Cruz MD POINT OF CARE TEST ORD ERABLES Final Result * (ABNORMAL) POC Glycosylated Hemoglobin (Hb A1C) (03/06/2025 3:17 PM EDT) Hemoglobin A1C 7.4(A) 4.5 - 5.7 % [facility] Lot Number [id number] [facility] Expiration Date 10/29/2026 [facility] Blood 03/06/2025 3:17 PM EDT us Pavan Cruz MD POINT OF CARE TEST ORD ERABLES Final Result [facility]
[address] [place] [address], [place] [phone] from Last 3 Months Insurance [facility] Advance Directives * CPR (Attempt to Resuscitate) [...] Of Support Discussed With: Patient Care Teams Flight Crew Time Clerk Relationship Specialty Start Date End Date Gretchen Angelo APRN [address] [place] [address] PCP - General Nurse Practitioner 06/25/23
--- OUTSIDE RECORDS SUMMARY | 2025-03-20 13:16 | XMS_ITS | Clinical Summary ---
Author Organization [facility] Address [address] [place] [address] Care Team Providers Care Bacteriologist Food Name Role Phone None, None Primary Care Provider Unavailabl e Mychart, Generic Provider Unavailable Shena Joe MD Unavailable [phone] Suellen Hurley NP Unavailable Allergies No known active allergies Medications Blood-Glucose Meter Misc Use 1 Each as instructed 4 times daily (before meals and at bedtime). 1 Each 04/14/2019 4:02 PM EDT 04/14/20 19 Active Insulin Turon, Disposable, 31 gauge x 5/16 NeedleIndications :Type [...] to the patient, Quantity 2, Lot Number [id number], Expiration 03/2020 6 mL 1 07/10/20 19 [...] 12/31/19 21, 05/28/2020, 01/28/2020, Additional history exists Lipid Monitoring 12/30/2021 12/30/2020, 04/23/2019 Depression Screening 07/16/2024 Diabetes Mellitus Microalbum in (Yearly) 07/16/2024 12/30/2020, 04/23/2019 Renal Monitoring 07/16/2024 06/18/2023, , 12/19/2019, Additional history exists COVID-19 Vaccine (1 - 2023-2 5 season) 2025 Influenza Vaccination (#1) 2025 Lipid Screening (One Time ag e 20-34) Discontinued 12/30/2020, 04/23/2019 Procedures Procedure Name Priority Date/Time Associated Diagnosis Comments ALBUMIN, URINE CREATININE/RATIO Routine 12/30/2020 4:22 PM EDT Uncontrolled type 1 diabetes mellitus with hyperglycemia, with long-term current use of insulin RENAL PROFILE Routine 12/30/2020 4:22 PM EDT [...] [facility] Alb, Ur 1.30 mg/dL TC SOFTWARE TEST AUTOMATION ENGINEER AL LAB Alb Creat Ratio 20 0 [...] Lloyd MD URINE ORDERABLES Final Res ult [facility] [address] * (ABNORMAL) RENAL PROFILE (12/30/2020 4:22 PM EDT) Sodium 137 135 - 146 mmol/L [facility] Potassium 4.7 3.5 - 5.1 mmol/L [facility] Chloride 103 98 - 110 mmol/L [facility] CO2 29 22 - 29 mmol/L [facility] Anion Gap 5 5 - [...] g/dL [facility] BUN/Creatinine Ratio 13 [facility] Serum (Serum) 12/30/2020 4:2 2 PM EDT 12/30/2020 7:02 PM EDT us Shena Lloyd MD CHEMISTRY ORDERABLES Final Result Performing Organization Address City/State/[facility] Co de Phone Number [facility] [address] * LIPID PROFILE (12/30/2020 4:22 PM [...] High HDL 59 40 - 180 mg/dL [facility] Comment: HDL CHOLESTEROL INTERPRETATION: Less than 40 mg/dL Low Greater than 60 mg/dL Desirable Triglycerides 101 0 - 150 mg/dL [facility] Comment: TOTAL TRIGLYCERIDE INTERPRETATION: Less than 150 mg/dL Normal 150-199 mg/dL Borderline HIgh 200-499 mg/dL High Greater or Equal to 500 mg/dL Very High Serum (Serum) 12/30/2020 4:2 2 PM EDT 12/30/2020 7:02 PM EDT Shena Lloyd MD CHEMISTRY ORDERABLES Final Result [facility] [address] [place] [address] * POCT AMB HEMOGLOBIN A1C (12/30/2020 3:54 PM EDT) Hgb A1C 8.3 % 12/30/2020 3:54 PM EDT Shena Lloyd MD AMB POINT OF CARE Final Re sult * AMB REFERRAL TO OPHTHALMOLOGY (04/25/2019) Historical Provider OUTPATIENT REFERRAL ORDERABL ES Final Result from Last 3 Months or Most Recently Relevant to Health Maintenance Insurance ANTH ANTHEM ANTHEM ANTHEM Advance Directives For more information, please contact: [phone] * Full Code (Latest Code Status on File) Date Activated Date Inactivated Comments 04/11/2019 6:39 PM 06/21/2023 10:47 AM No automate d chest compression devices for VAD Patients * Full Code Date Activated Date Inactivated Comments 04/11/2019 6:37 PM 04/11/2019 6:39 PM Care Teams Bacteriologist Food Relationship Specialty Start Date End Date None, None [address] [place] [address] PCP - General 04/11/19 Mychart, Generic Provider 09/01/20 Shena Lloyd MD [address] [place] [address] Endocrinology/Diabetes/ Metabolism 12/30/20 Suellen Hurley NP [address] [place] [address] Nurse Practitioner Endocrinology/Diabetes/ Metabolism 03/29/21
--- OUTSIDE RECORDS SUMMARY | 2025-03-20 13:16 | XMS_ITS | Clinical Summary ---
Author Organization [facility] Address [address] [place] [id number] Care Team Providers Care Wind Tunnel Engineer Name Role Phone Unavailable Primary Care Provider Unavailabl e Source Comments [facility] is fully rolled out with thefollowing exceptions:General Clinical Research [facility] Social History Tobacco Use Types Packs/Day [...] Vaccine (1 - 2023-2 5 season) 2025 AMB SEASONAL FLU VACCINE (#1) 05/16/2025 HIB IMMUNIZATION Aged Out No longer e [...]
[2025-03-20] MEDS: LACTATED RINGERS 1000ML 1,000 ML 999 ML IV ×2 (13:24→14:27)
[2025-03-20 13:25] LABS: VBG HCO3 15.9 mmol/L (23-30); VBG PCO2 30.9 mmol/L (35-51); VBG PH 7.33 mmol/L (7.31-7.41); VBG PO2 67.4 mmol/L (28-40)
[2025-03-20 13:27] LABS: Lactate Venous 3.2 mmol/L (0.4-2.0)
[2025-03-20] MEDS: ONDANSETRON 4MG/2ML VIAL 4 MG IV ×3 (13:28→17:54)
[2025-03-20 13:34] LABS: Albumin Level 5.8 g/dl (3.5-5.0); Chloride 98 mmol/L (98-107); Sodium 140 mmol/L (136-145)
[2025-03-20 13:35] LABS: Potassium 5.0 mmoL/L (3.5-5.1)
--- NOTE | 2025-03-20 13:35 | ECG_ITS ---
APPROVED REPORT Exam: Resting ECG HR:68 bpm ECG Measurements Heart Rate 68 AXES NJ 166 P 83 QRSd 91 QRS 89 QT 418 T 85 QTc 436 Conclusion Normal sinus rhythm with PACs Normal axis S waves in leads V3 through V5 Largely unchanged from prior Electronically signed by : Alex Van, 03/20/2025 17:40:25
[2025-03-20 13:37] LABS: Alanine Aminotransferase 26 U/L (12-78); Alkaline Phosphatase 107 U/L (38-126); Anion Gap 34.0 mEq/L (5-15); Aspartate Amino Transferase 42 U/L (17-59); Bilirubin,Total 1.8 mg/dl (0.2-1.3); Blood Urea Nitrogen 26 mg/dl (9-20); Carbon Dioxide 13 mmol/L (22.0-30.0); Creatinine Clearance Estimated 92 mL/min (50-200); Creatinine,Serum 1.00 mg/dl (0.66-1.25); Estimated Glomerular Filt Rate 91 ml/min (>60); GFR (African American) 110 ML/MIN (>60)
[2025-03-20 13:38] LABS: Albumin/Globulin Ratio 1.7 (1.1-1.8); Calcium 10.7 mg/dl (8.4-10.2); Globulin 3.5 g/dL (1.3-3.2); Lipase 26 U/L (23-300); Total Protein,Serum 9.3 g/dl (6.3-8.2)
[2025-03-20 13:44] LABS: Glucose 465 mg/dl (74-100)
--- NOTE | 2025-03-20 13:44 | PC.NURSE ---
lab called with critical glucose 465. dr frost notified
[2025-03-20 14:03] LABS: Hematocrit 47.2 % (42.0-52.0); Hemoglobin 16.1 g/dL (14.1-18.0); Immature Granulocytes % 3.1 %; Mean Corpuscular HGB Conc 34.1 g/dL (31.8-35.4); Mean Corpuscular Hemoglobin 28.8 pg (27.0-31.2); Mean Corpuscular Volume 84.3 fl (80-94); Nucleated Red Blood Cells % 0 %; Platelet Count 389 K/mm3 (142-424); Red Blood Count 5.60 M/mm3 (4.60-6.20); Red Cell Distribution Width-SD 37.1 fL
[2025-03-20 14:16] LABS: White Blood Count 30.2 K/mm3 (4.8-10.8)
[2025-03-20] MEDS: droPERidol 5MG/2ML VIAL 2.5 MG IV (14:17)
[2025-03-20] MEDS: humaLOG 100 UNITS/ML 10ML VIAL (SSI) 5 UNIT IV (14:25)
--- NOTE | 2025-03-20 14:57 | CT_ITS ---
FINAL REPORT TECHNIQUE: Thin section axial images are obtained through the abdomen and pelvis after intravenous contrast. Reconstruction images were obtained from the axial data. Exam was performed using dose reduction techniques. CLINICAL HISTORY: Abdominal pain COMPARISON: 12/30/2023 FINDINGS: LUNG BASES: Lung bases are clear. Heart size is normal. LIVER: Homogeneous. No focal lesion. GALLBLADDER/BILIARY SYSTEM: Gallbladder is present. No gallstones. No biliary dilatation. SPLEEN: Unremarkable. PANCREAS: Unremarkable. ADRENALS: Unremarkable. KIDNEYS/URETERS/BLADDER: No hydronephrosis, renal mass, or renal stone. Unremarkable urinary bladder. GI TRACT: Distal esophageal wall thickening is similar to the prior study, esophagitis not excluded. No small bowel obstruction. Long segment colonic wall thickening is concerning for mild colitis. Appendix is not seen but no secondary signs of appendicitis. PELVIC ORGANS: Unremarkable for age. LYMPH NODES/RETROPERITONEUM/MESENTERY: No lymphadenopathy. No abdominal aortic aneurysm. ABDOMINAL WALL: The abdominal wall is intact. FREE FLUID: No ascites. BONES: No acute osseous abnormality. IMPRESSION: Long segment colonic wall thickening favor mild colitis. Distal esophageal wall thickening may represent esophagitis. Reviewed, Interpreted and Dictated by Marely Nicole MD Transcribed by Lauren Pastrana Authenticated and [facility]
[2025-03-20 15:00] LABS: Total Cells Counted 100
[2025-03-20 15:01] LABS: RBC Morphology Normal
[2025-03-20 15:06] LABS: POC Glucose,Bedside 316 gm/dL (70-110)
--- NOTE | 2025-03-20 15:06 | PC.NURSE ---
pt going for CT at this time
[2025-03-20] MEDS: IOPAMIDOL-370 (76%);100ML BOTTLE 75 ML IV (15:15)
[2025-03-20] MEDS: SODIUM CHLORIDE 0.9% 10ML SYR (RAD ONLY) 10 ML IV (15:15)
[2025-03-20 15:17] LABS: Acetone, Serum (Rapid) Detected (None Detect)
--- NOTE | 2025-03-20 15:55 | HMH.EDGENADL ---
Discharge Plan Disposition Patient Disposition: Admitted Condition: Fair Prescriptions Prescriptions: No Action (DME) FreeStyle Poli 3 Sensor Device See Rx Instructions .Route Qty: 1 11RF Rx Instructions: As directed (DME) pen needle, diabetic 32 gauge x 5/32 needle See Rx Instructions .ROUTE .MEDSUPPLY Qty: 1200 1RF Rx Instructions: As directed insulin lispro [Humalog KwikPen Insulin] 100 unit/mL insulin pen 0 unit SQ DIRECTED Patient Comments: USE DIRECTED WITH INSULIN PUMP - MAX DAILY DOSE OF 100 UNITS Rx Instructions: USE DIRECTED WITH INSULIN PUMP - MAX DAILY DOSE OF 100 UNITS Humalog KwikPen Insulin 200 unit/mL (3 mL) insulin pen 10 - 15 unit SQ AC Patient Comments: ADMINISTER 10 TO 15 UNITS SUBCUTANEOUSLY 3 TIMES A DAY BEFORE A MEAL PER SLIDING SCALE Rx Instructions: ADMINISTER 10 TO 15 UNITS SUBCUTANEOUSLY 3 TIMES A DAY BEFORE A MEAL PER SLIDING SCALE metoclopramide HCl [Reglan] 5 mg tablet 5 - 10 mg PO ACHS 30 Days Qty: 180 0RF pantoprazole 40 mg tablet,delayed release (DR/EC) 40 mg PO DAILY Qty: 30 0RF Referrals Follow up/Referrals: Gretchen Angelo APRN [Primary Care Provider, Family Practice] - See instructions Clinical Impressions Clinical Impression: Acute hyperglycemia, Ketosis, Leukocytosis, Colitis, Intractable nausea and vomiting Print Language Print Language: Nigerian Discharge ED Provider: Alex Van Adult HPI General Chief complaint: Hyper/Hypoglycemia Stated complaint: Sugar at <300, vomiting Time Seen by Provider: 03/20/25 13:02 Mode of Arrival: Ambulatory Source of Information: Patient and Relative Description of Symptoms (Recalled from ER Triage Doc. by RN): alecia presents to the ED for a diabetic emergency . Jignesh is slumped over in hweelchair with mom present. Patient actively vomiting and only really able to tell triage staff he is a type one diabetic. Patient has an insulin pump and he is not sure how muhc insulin it gave him a couple hours ago. History of Present Illness HPI narrative: This is a 24-year-old male patient, with past medical history of type 1 diabetes and frequent visits for hyperemesis, who is presenting to the emergency department today for evaluation of nausea and vomiting. Patient states that he began feeling unwell last night and at that time his insulin was in the 300s so he entered this into his insulin pump to correct insulin administration based on his blood sugar. He is unsure of the amount of insulin that he received based on this correction. He states this morning he became sicker and developed intractable nausea and vomiting and his sugar has increased gradually since that time. He has had generalized abdominal pain that he describes as nonradiating. He has had a couple of episodes of diarrhea since onset of this pain. No chest pain or shortness of breath. No respiratory symptoms. No urinary symptoms. Related Data Home Medications ?Medication ?Instructions ?Recorded ?Confirmed insulin lispro 100 unit/mL 0 unit SQ DIRECTED 02/14/25 02/24/25 subcutaneous pen (Humalog KwikPen (U-100) Insulin) insulin lispro 200 unit/mL (3 mL) 10 - 15 unit SQ AC 02/15/25 02/24/25 subcutaneous pen (Humalog KwikPen U-200 Insulin) Previous Rx's ?Medication ?Instructions ?Recorded blood-glucose sensor (FreeStyle #1 ea 08/18/24 Poli 3 Sensor device) pen needle, diabetic 32 gauge x #1,200 ea 10/23/2432 metoclopramide HCl 5 mg tablet 5 - 10 mg (1 - 2 x 5 mg) PO ACHS 02/17/25 (Reglan) 30 days #180 tabs pantoprazole 40 mg tablet,delayed 40 mg PO DAILY #30 tabs 02/17/25 release Allergies Allergy/AdvReac Type Severity Reaction Status Date / Time No Known Allergies Allergy Verified 02/24/25 11:07 [facility] Disclaimer: The information contained in this section may have been updated after the patient was seen, as this information can be updated by other users. Medical History Insulin pump in place Vitamin D deficiency Vitamin B12 deficiency Non compliance with medical treatment Abdominal pain Abdominal pain Diabetes mellitus type 1 Hyperthyroidism Family History Other Cancer Diabetes Hypertension Social History Smoking Status: Current every day smoker tobacco type: e-cigarettes alcohol intake: never current occupational status: employed Travel in the last 8 weeks?: None Have you lived/traveled outside US in past 30 days?: No Contact w/someone who lives/traveled outside US past 30 days?: No Exposure to someone with infectious disease in past 14 days?: No Do you have a fever (greater than 100.4 F or 38 C)?: No Have you tested positive for COVID-19?: No Exposed to someone with COVID-19 in past 14 days?: No Do you have a sore throat?: No Do you have a cough?: No Do you have any weakness?: No Do you have any diarrhea?: No Are you experiencing any unusual bleeding?: No Do you have any muscle aches/pain?: No Do you have any abdominal pain?: No Are you experiencing loss of taste or smell?: No Other Medical History Have you received the Flu Vaccine for this season: No Have you received the Pneumonia Vaccine: No ROS Obtained: Yes Systems reviewed as appropriate & no additional complaints except as documented Physical Exam General General appearance: other (See MDM) Respiratory Respiratory exam: Present other (See MDM) Cardiovascular Cardiovascular exam: Present other (See MDM) Neurological Exam Neurological exam: Present other (See MDM) Medical Decision Making Medical Records Medical records reviewed: Yes I reviewed the patient's medical records. Screening: Per USPSTF and CDC recommendations, given the prevalence of disease in our region, it is our hospital?s policy to screen for HIV and viral Hepatitis for all patients aged 18 and over and those with ongoing risk factors. Lui Inquiry Pt receiving controlled substance: No Lui was queried for this patient: No Vital Signs: 03/20/25 13:05 03/20/25 13:18 03/20/25 13:31 Temperature 98.2 F Temperature Source Oral Pulse Rate 83 Pulse Rate [Right Radial] 94 H Respiratory Rate 20 15 Blood Pressure 180/61 H Blood Pressure [Left Arm] 118/73 Blood Pressure Mean [Left Arm] 88 Blood Pressure Source [Left Arm] Automatic Cuff Blood Pressure Position [Left Arm] Sitting 02 Sat by Pulse Oximetry 96 96 100 Oxygen Delivery Method Room Air Room Air 03/20/25 14:01 03/20/25 14:30 Temperature Temperature Source Pulse Rate 84 86 Pulse Rate [Right Radial] Respiratory Rate 20 13 Blood Pressure 103/75 L 104/66 L Blood Pressure [Left Arm] Blood Pressure Mean [Left Arm] Blood Pressure Source [Left Arm] Blood Pressure Position [Left Arm] 02 Sat by Pulse Oximetry 99 97 Oxygen Delivery Method Room Air Room Air Lab Data Lab Results 03/20/25 13:18: WBC 30.2 H*, RBC 5.60, Hgb 16.1, Hct 47.2, MCV 84.3, MCH 28.8, MCHC 34.1, RDW 12.2, Plt Count 389, MPV 8.6, Neut % (Auto) 83.7 H, Lymph % (Auto) 5.9 L, Morrill % (Auto) 6.7, Eos % (Auto) 0.1, Baso % (Auto) 0.5, Neut # (Auto) 25.3 H, Lymph # (Auto) 1.8, Morrill # (Auto) 2.0 H, Eos # (Auto) 0.0, Baso # (Auto) 0.2, Total Counted 100, Neutrophils % (Manual) 89 H, Lymphocytes % (Manual) 10, Monocytes % (Manual) 1 L, Platelet Estimate Normal, RBC Morphology Normal, Sodium 140, Potassium 5.0, Chloride 98, Carbon Dioxide 13 L, Anion Gap 34.0 H, BUN 26 H, Creatinine 1.00, Estimated Creat Clear 92, Estimated GFR 91, Est GFR ( Amer) 110, Glucose 465 H*, Calcium 10.7 H, Total Bilirubin 1.8 H, AST 42, ALT 26, Alkaline Phosphatase 107, Total Protein 9.3 H D, Albumin 5.8 H, Globulin 3.5 H, Albumin/Globulin Ratio 1.7, Lipase 26, Acetone Level Detected 03/20/25 13:20: VBG pH 7.33, VBG pCO2 30.9 L, VBG pO2 67.4 H, VBG HCO3 15.9 L, VBG Total CO2 16.8 L, VBG O2 Saturation 92.0 H, VBG Base Excess -10.1 L, VBG Lactic Acid 3.2 H 03/20/25 14:59: POC Glucose 316 H* 03/20/25 15:48: Sodium 140, Potassium 4.1, Chloride 99, Carbon Dioxide 18 L, Anion Gap 27.1 H, BUN 24 H, Creatinine 1.00, Estimated Creat Clear 92, Estimated GFR 91, Est GFR ( Amer) 110, Glucose 319 H D, Calcium 9.7, Total Bilirubin 1.2, AST 38, ALT 27, Alkaline Phosphatase 86, Total Protein 8.0, Albumin 5.3 H, Globulin 2.7, Albumin/Globulin Ratio 2.0 H 03/20/25 16:14: Urine Color Yellow, Urine Appearance Clear, Urine pH 6.0, Ur Specific Veneta 1.020, Urine Protein Trace, Urine Glucose (UA) 2+, Urine Ketones 3+, Urine Blood 1+ A, Urine Nitrate Negative, Urine Bilirubin Negative, Urine Urobilinogen 0.2, Ur Leukocyte Esterase Negative 03/20/25 13:18 03/20/25 15:48 Orders (Tests/Meds): ED MEDICATIONS Generic Name Dose Route Start Last Admin Trade Name Abimael PRN Reason Stop Dose Admin Dextrose 50 ml 03/20/25 16:35 Dextrose 50% 50ml Syringe (Crash Cart) IVP 04/19/25 16:34 NEEDED PRN Per Dka Protocol for FSBS </= 50 Insulin Human Regular 100 unit 101 mls @ 3.03 mls/hr 03/20/25 16:45 / Sodium Chloride IV 04/19/25 16:44 .Q24H MARCELO Protocol 3 UNIT/HR Lactated Ringer's 1,000 mls @ 150 mls/hr 03/20/25 16:45 Lactated Ringer's 1000 Ml Bag IV 04/19/25 16:44 .Q6H40M MARCELO Lactated Ringer's 1,000 mls @ 500 mls/hr 03/20/25 16:38 Lactated Ringer's 1000 Ml Bag IV 03/20/25 18:37 .Q2H ONE Discontinued Medications Generic Name Dose Route Start Last Admin Trade Name Abimael PRN Reason Stop Dose Admin Diphenhydramine HCl 25 mg 03/20/25 13:45 03/20/25 14:17 Diphenhydramine 50mg/Ml Vial IV 03/20/25 13:46 25 mg ONCE ONE Administration Droperidol 2.5 mg 03/20/25 13:45 03/20/25 14:17 Droperidol 5mg/2ml Vial IV 03/20/25 13:46 2.5 mg ONCE ONE Administration Lactated Ringer's 1,000 mls @ 999 mls/hr 03/20/25 13:14 03/20/25 14:44 Lactated Ringer's 1000 Ml Bag IV 03/20/25 14:14 Infused .Q1H1M ONE Infusion Lactated Ringer's 1,000 mls @ 999 mls/hr 03/20/25 13:46 03/20/25 15:33 Lactated Ringer's 1000 Ml Bag IV 03/20/25 14:46 Infused .Q1H1M ONE Infusion Insulin Human Lispro 5 unit 03/20/25 13:46 03/20/25 14:25 Humalog 100 Units/Ml 10ml Vial (Ssi) IV 03/20/25 13:47 5 unit ONCE ONE Administration Iopamidol 75 ml 03/20/25 15:14 03/20/25 15:15 Iopamidol-370 (76%);100ml Bottle IV 03/20/25 15:15 75 ml ONCE ONE Administration Ondansetron HCl 4 mg 03/20/25 13:27 03/20/25 13:28 Ondansetron 4mg/2ml Vial IV 03/20/25 13:28 4 mg ONCE ONE Administration Ondansetron HCl 4 mg 03/20/25 16:00 03/20/25 16:08 Ondansetron 4mg/2ml Vial IV 03/20/25 16:01 4 mg ONCE ONE Administration Sodium Chloride 10 ml 03/20/25 15:14 03/20/25 15:15 Sodium Chloride 0.9% 10ml Syr (Rad Only) IV 03/20/25 15:15 10 ml ONCE ONE Administration ORDERS Category Date Time Status CT abdomen pelvis w con Stat Cat Scan 03/20/25 14:57 Completed Acetone, Serum (Rapid) Stat Lab 03/20/25 13:18 Completed Basic Metabolic Panel Q4H Lab 03/20/25 21:45 Ordered Basic Metabolic Panel Q4H Lab 03/21/25 01:45 Ordered Basic Metabolic Panel Q4H Lab 03/21/25 05:45 Ordered Basic Metabolic Panel Q4H Lab 03/21/25 09:45 Ordered CBC w/Auto Diff [Complete Blood Count Auto Diff] Stat Lab 03/20/25 13:18 Completed CMP [Comprehensive Metabolic Panel] Stat Lab 03/20/25 13:18 Completed CMP [Comprehensive Metabolic Panel] Stat Lab 03/20/25 15:48 Completed Lipase Stat Lab 03/20/25 13:18 Completed Magnesium Q4H Lab 03/20/25 21:45 Ordered Magnesium Q4H Lab 03/21/25 01:45 Ordered Magnesium Q4H Lab 03/21/25 05:45 Ordered Magnesium Q4H Lab 03/21/25 09:45 Ordered Mini Respiratory Panel Stat Lab 03/20/25 13:14 Ordered POC Glucose,Bedside Routine Lab 03/20/25 14:59 Completed Phosphorous Q4H Lab 03/20/25 21:45 Ordered Phosphorous Q4H Lab 03/21/25 01:45 Ordered Phosphorous Q4H Lab 03/21/25 05:45 Ordered Phosphorous Q4H Lab 03/21/25 09:45 Ordered Urinalysis and Microscopic Stat Lab 03/20/25 16:14 Results Blood Culture Stat Micro 03/20/25 16:21 Ordered VBG [Venous Blood Gas] Stat RT 03/20/25 13:20 Completed ECG Data Tracing #1: I reviewed this ECG and interpreted as documented below: EKG personally interpreted by me demonstrates normal sinus rhythm with PACs at a rate of 68 bpm, normal axis, no NV prolongation, narrow QRS, no QTc prolongation. No ST elevation or depression. There are deep S waves in leads V3, V4, and V5 which are present on prior EKG's Medical Decision Narrative: In summary, this is a 24-year-old male patient who is presenting to the emergency department today for evaluation of malaise with nausea and vomiting and hyperglycemia. Comorbidities include type 1 diabetes as well as a history of cannabis hyperemesis and a recurrent intractable nausea and vomiting. On initial evaluation of the patient he did appear uncomfortable but was nontoxic in appearance. He is hemodynamically stable, saturating well on room air, and is neurologically intact. On examination he is appropriately alert and interactive with a GCS of 15. Heart and lungs are clear to auscultation bilaterally. No wheezes, rales, or rhonchi appreciated. He has diffuse abdominal tenderness to palpation with no obvious agustin peritonitis. No CVA tenderness. He did experience vomiting actively while I was examining him. Differential diagnosis includes hyperglycemia, diabetic ketoacidosis, intra-abdominal abscess, colitis, gastroenteritis, urinary tract infection, urinary stone, among others. Workup was initiated with hematologic labs as well as an EKG and a CT scan of the abdomen and pelvis. Labs were personally interpreted by me and demonstrate a marked leukocytosis of 30 with neutrophilic predominance. Patient has not been on any steroids. VBG shows no evidence of acidosis with a normal pH of 7.33. He does have a mild elevation of his lactate which I attribute to dehydration in the setting of his hyperglycemia and nausea and vomiting. He is hyperglycemic with a blood sugar that is greater than 400. His anion gap is elevated at 34. His bicarb is low at 13. This patient does have a mixed picture in which she has a low bicarb, elevated anion gap, and hyperglycemia, however he does not have an acidosis so I do feel that he is compensating well and is not currently experiencing diabetic ketoacidosis. However, he is likely trending in that direction. Given these findings we have treated the patient with 2 L of lactated Ringer's as well as 5 units of insulin via IV push. Following administration of these medications we did repeat a CMP which showed that his bicarb increased from 13-18, his anion gap decreased from 34-27, and his glucose has decreased to 319. CT scan of the abdomen and pelvis was interpreted by radiology and demonstrated mild colitis with no other acute findings. On my personal interpretation it does appear that he has some evidence of hydroureter but this was not noted on the CT scan. Urinalysis does not demonstrate any findings of urinary tract infection. We did treat the patient's nausea with droperidol and despite treatment with droperidol he did experience recurrent nausea and vomiting. We then administered 4 mg of Zofran to the patient. On repeat reassessment he is resting comfortably and is in no acute distress. However, given that he has had such significant nausea and vomiting and has mild colitis noted on CT scan with hyperglycemia I do feel that he necessitates admission to the hospital for continued treatment and monitoring. Therefore I have had an interactive discussion with the internal medicine service who has agreed to evaluate the patient the emergency department. After our discussion and their evaluation they have agreed to admit the patient to their service and accept primary responsibility of the patient before Critical Care Critical Care Time Critical Care Time: Yes Attestation: On 03/20/25, the high probability of a clinically significant, sudden or life threatening deterioration of the following system(s) required my full and direct attention, intervention and personal management. The time I documented below is in addition to time spent performing reported procedures but includes the following listed in this critical care notation. Total Time Total Critical Care Time: 35
--- NOTE | 2025-03-20 16:08 | PC.NURSE ---
bladder scan shows >198
[2025-03-20 16:18] LABS: Microscopic, Urine URINE MICROSCOPIC (MICROSCOPIC)
[2025-03-20 16:22] LABS: Bilirubin,Urine Negative (Negative); Color,Urine YELLOW (Yellow); Glucose,Urine (UA) 2+ (Negative); Ketones,Urine 3+ (Negative); Leukocyte Esterase,Urine Negative (Negative); PH,Urine 6.0 (5.0-8.5); Protein,Urine TRACE (Negative); Specific Gravity, Urine 1.020 (1.005-1.030); Urobilinogen,Urine 0.2 EU/dl (0.2)
[2025-03-20 16:25] LABS: Alanine Aminotransferase 27 U/L (12-78); Albumin Level 5.3 g/dl (3.5-5.0); Albumin/Globulin Ratio 2.0 (1.1-1.8); Alkaline Phosphatase 86 U/L (38-126); Anion Gap 27.1 mEq/L (5-15); Aspartate Amino Transferase 38 U/L (17-59); Bilirubin,Total 1.2 mg/dl (0.2-1.3); Blood Urea Nitrogen 24 mg/dl (9-20); Calcium 9.7 mg/dl (8.4-10.2); Carbon Dioxide 18 mmol/L (22.0-30.0); Chloride 99 mmol/L (98-107); Creatinine Clearance Estimated 92 mL/min (50-200); Creatinine,Serum 1.00 mg/dl (0.66-1.25); Estimated Glomerular Filt Rate 91 ml/min (>60); GFR (African American) 110 ML/MIN (>60); Globulin 2.7 g/dL (1.3-3.2); Glucose 319 mg/dl (74-100); Potassium 4.1 mmoL/L (3.5-5.1); Sodium 140 mmol/L (136-145); Total Protein,Serum 8.0 g/dl (6.3-8.2)
--- NOTE | 2025-03-20 16:39 | PC.NURSE ---
tipple supervisor contacted regarding bed request
[2025-03-20 17:08] LABS: Bacteria,Urine Trace /lpf; WBC,Urine Occasional #/hpf (0-3)
--- NOTE | 2025-03-20 17:11 | PC.NURSE ---
report given to elizabeth rn
[2025-03-20 17:27] LABS: Reflex Lactic Add Lactic Reflex
--- NOTE | 2025-03-20 17:33 | PC.NURSE ---
Patient arrived to the unit via wheelchair at 1732
[2025-03-20] MEDS: INSULIN REGULAR, HUMAN 100 UNIT in 0.9 % SODIUM CHLORIDE 100 ML 5.05 UNIT IV (17:43)
[2025-03-20] MEDS: LACTATED RINGERS 1000ML 1,000 ML 500 ML IV (17:44)
--- OUTSIDE RECORDS SUMMARY | 2025-03-20 17:55 | XMS_ITS | Encounter Summary ---
Author Organization [facility] Address [address] [place] [address] Care Team Providers Care Brick Layer Name Role Phone None, None Primary Care Provider Unavailabl e Mychart, Generic Provider Unavailable Shena Joe MD Unavailable [phone] Suellen Hurley NP Unavailable Reason for Visit * Reason Onset Date Comments Other 01/22/2020 [facility] fax Encounter Details Date Type Department Care Team (Late st Contact Info) Description 01/22/2020 Telephone [facility], [address] [place] [address] Shena Lloyd MD [address] [place] [address] Other ([employer] fax) Social History Tobacco Use Types Packs/Day [...] 01/22/2020 6:55 AM EDT Rcvd fax from [facility] for [facility] to review and sign-placed in box documented in this encounter Plan of Treatment Not on file documented as of this encounter Visit Diagnoses Not on filedocumented in this encounter Care Teams Brick Layer Relationship Specialty Start Date End Date None, None [address] [address] PCP - General 04/11/19 [place], Generic Provider 09/01/20 Shena Lloyd MD [address] [place] [id number] Endocrinology/Diabetes/ Metabolism 12/30/20 Suellen Hurley NP [address] [place] [address] Nurse Practitioner Endocrinology/Diabetes/ Metabolism 03/29/21 documented as of this encounter
--- OUTSIDE RECORDS SUMMARY | 2025-03-20 17:55 | XMS_ITS | Clinical Summary ---
Author Organization [facility] Address [address] [place] [address] Care Team Providers Care Refrigerating Engineer Name Role Phone Gretchen Angelo APRN Primary Care Provider [phone] Allergies No known active allergies Medications glucose [...] Type Department Care Team Description 03/19/2025 Refill [facility] [address] [facility] [address] [place] [address] Pavan Cruz MD 03/09/2025 Results Follow-Up [facility] [address] [address] Pavan Cruz MD 03/06/2025 3:00 PM EDT Office Visit [facility] [address] [address] Pavan Cruz MD Type 1 diabetes mellitus [...] drink = 0.6 oz pur e alcohol) [facility] Utilities Answer Date Recorded In [...] care, and heating? Not very hard 08/15/2024 [facility] - [facility] [...] GED or equivalent No 08/15/2024 Preferred Language Greenlandic 08/15/2024 PHQ-2 Answer Date Recorded Patient Health [...] Office Visit [facility] [address] [facility] [address] [place] [address] Pavan Cruz MD [address] [facility] [address] [place] [address] Health Maintenance Due Date Last Done Comments [...] Ratio 03/07/2025 2:54 AM EDT [facility] Comment:Unable to calculate Creatinine, Urine 251.3 mg/dL 03/07/2025 2:54 AM EDT [facility] Microalbumin, Urine <1.2 mg/dL 03/07/2025 2:54 AM EDT [facility] Urine Urine specimen obtained by clean catch procedure / Unknown Collection / Unknown 03/06/2025 3:38 PM EDT 03/06/2025 3:38 PM EDT us Pavan Cruz MD URINE ORDERABLES Final Result [facility]
[address] [place] [address], [place] [phone] * (ABNORMAL) POC Glucose, Blood (03/06/2025 3:18 PM EDT) Glucose 182(A) 70 - 130 mg/dL Lot Number [id number] Expiration Date 07/29/2025 Blood 03/06/2025 3:18 PM EDT us Pavan Cruz MD POINT OF CARE TEST ORD ERABLES Final Result * (ABNORMAL) POC Glycosylated Hemoglobin (Hb A1C) (03/06/2025 3:17 PM EDT) Hemoglobin A1C 7.4(A) 4.5 - 5.7 % [facility] Lot Number [id number] [facility] Expiration Date 10/29/2026 [facility] Blood 03/06/2025 3:17 PM EDT us Pavan Cruz MD POINT OF CARE TEST ORD ERABLES Final Result [facility]
[address] [place] [address], [place] [phone] from Last 3 Months Insurance [facility] Advance Directives * CPR (Attempt to [...] Of Support Discussed With: Patient Care Teams Refrigerating Engineer Relationship Specialty Start Date End Date Gretchen Angelo APRN [address] [place] [address] [place] [address] PCP - General Nurse Practitioner 06/25/23
--- OUTSIDE RECORDS SUMMARY | 2025-03-20 17:55 | XMS_ITS | Clinical Summary ---
Author Organization [facility] Address [address] [place] [address] Phone Care Team Providers Care Plaster Machine Operator Name Role Phone Unavailable Primary Care Provider [...]
--- OUTSIDE RECORDS SUMMARY | 2025-03-20 17:55 | XMS_ITS | Encounter Summary ---
Author Organization [facility] Address [address] [place] [address] Care Team Providers Care Shear Setter Name Role Phone None, None Primary Care Provider Unavailabl e Mychart, Generic Provider Unavailable Shena Joe MD Unavailable [phone] Suellen Hurley NP Unavailable Reason for Visit * Reason Comments Medications Refill Encounter Details Date Type Department Care Team (Late st Contact Info) Description 10/19/2020 Refill [facility] [address] [facility] [place] [address] Suellen Hurley NP [address] [place] [address] Medications Refill Social History Tobacco [...] study documented in this encounter Care Teams Shear Setter Relationship Specialty Start Date End Date None, None [address] [place] [address] PCP - General 04/11/19 Mychart, Generic Provider 09/01/20 Shena Lloyd MD [address] [place] [phone] Endocrinology/Diabetes/ Metabolism 12/30/20 Suellen Hurley NP [address] [place] [address] Nurse Practitioner Endocrinology/Diabetes/ Metabolism 03/29/21 documented as of this encounter
--- OUTSIDE RECORDS SUMMARY | 2025-03-20 17:55 | XMS_ITS | Clinical Summary ---
Author Organization [facility] Address [address] [place] [address], [address] [place] [address] Care Team Providers Care Fitting Room Operator Name Role Phone Unavailable Primary Care [...]
--- OUTSIDE RECORDS SUMMARY | 2025-03-20 17:55 | XMS_ITS | Encounter Summary ---
[facility] Organization [facility] Address [address] [place] [address] Care Team Providers Care Sfdc Solution Architect Name Role Phone Gretchen Angelo APRN Primary Care Provider [phone] Encounter Details Date Type Department Care Team (Late st Contact Info) Description 03/19/2025 Refill [facility] [address] [facility] [address] [place] [address] Pavan Cruz MD [address] [facility] [address] [place] [address] Social History Tobacco Use Types Packs/Day Years Used Date Smoking Tobacco: Never Passive Smoke Exposure: Never Smokeless Tobacco: Never Alcohol Use Standard Drinks/Week Comments Not Currently 1 (1 standard drink = 0.6 oz pur e alcohol) [facility] Utilities Answer Date Recorded In the past 12 months has [employer], gas, oil, or water [employer] threatened to shut off services in your [...] care, and heating? Not very hard 08/15/2024 [facility] [place] of Occupat ional Health - Occupational Stress [...] GED or equivalent No 08/15/2024 Preferred Language Bangladeshi 08/15/2024 PHQ-2 Answer Date Recorded Patient Health [...] that he would like this sent to [facility] pharmacy in [place]. documented in this encounter Plan of Treatment Upcoming Encounters Date Type Department Care Team (Late st Contact Info) Description 09/07/2025 9:45 AM EST Office Visit [facility] [address] [phone] Pavan Cruz MD [address] [address] documented as of this encounter Visit Diagnoses Not on filedocumented in this encounter Care Teams Sfdc Solution Architect Relationship Specialty Start Date End Date Gretchen Angelo, CLAIMS INVESTIGATOR [address] [place] [address] PCP - General Nurse Practitioner 06/25/23 documented as of this encounter
--- OUTSIDE RECORDS SUMMARY | 2025-03-20 17:55 | XMS_ITS | Encounter Summary ---
Author Organization [facility] Address [address] [place] [address] Care Team Providers Care Psych Tech Name Role Phone None, None Primary Care Provider Unavailabl e Mychart, Generic Provider Unavailable Shena Joe MD Unavailable [phone] Suellen Hurley NP Unavailable Reason for Visit * Reason Comments Medications Refill Encounter Details Date Type Department Care Team (Late st Contact Info) Description 08/06/2021 Refill [facility] [place] [address] [facility] [place] [address] Suellen Hurley NP [address] [place] [address] Medications Refill Social History Tobacco [...] study documented in this encounter Care Teams Psych Tech Relationship Specialty Start Date End Date None, None [address] [place] [address] [place] [address] PCP - General 04/11/19 Mychart, Generic Provider 09/01/20 Shena Lloyd MD [address] [place] [phone] Endocrinology/Diabetes/ Metabolism 12/30/20 Suellen Hurley NP [address] [place] [address] Nurse Practitioner Endocrinology/Diabetes/ Metabolism 03/29/21 documented as of this encounter
--- OUTSIDE RECORDS SUMMARY | 2025-03-20 17:55 | XMS_ITS | Encounter Summary ---
Author Organization [facility] Address [address] [place] [address] Care Team Providers Care Agriculture Internship Name Role Phone Gretchen Angelo APRN Primary Care Provider [phone] Encounter Details Date Type Department Care Team (Latest Contact Info) Description 03/06/2025 Travel Social History Tobacco Use Types Packs/Day Years Used Date Smoking Tobacco: Never Passive Smoke Exposure: Never Smokeless Tobacco: Never Alcohol Use Standard Drinks/Week Comments Not Currently 1 (1 standard drink = 0.6 oz pur e alcohol) [facility] Utilities Answer Date Recorded In the past 12 months has [employer] electric, gas, oil, or water [employer] threatened to shut off services in your [...] care, and heating? Not very hard 08/15/2024 [facility] [place] of Occupat ional Health - Occupational Stress [...] GED or equivalent No 08/15/2024 Preferred Language Northern Irish 08/15/2024 PHQ-2 Answer Date Recorded Patient [...] Description 09/07/2025 9:45 AM EST Office Visit [facility] [address] [phone] Pavan Cruz MD [address] [address] documented as of this encounter Visit Diagnoses Not on filedocumented in this encounter Care Teams Agriculture Internship Relationship Specialty Start Date End Date Gretchen Angelo APRN [address] [place] [address] PCP - General Nurse Practitioner 06/25/23 documented as of this encounter
--- OUTSIDE RECORDS SUMMARY | 2025-03-20 17:55 | XMS_ITS | Encounter Summary ---
Author Organization [facility] Address [address] [place] [address] Care Team Providers Care Senior Qc Technician Name Role Phone None, None Primary Care Provider Unavailabl e Mychart, Generic Provider Unavailable Shena Joe MD Unavailable [phone] Suellen Hurley NP Unavailable Reason for Visit * Reason Comments Medications Refill Encounter Details Date Type Department Care Team (Late st Contact Info) Description 04/12/2021 Refill [facility] [place] [address] [facility] [place] [address] Suellen Hurley NP [address] [place] [address] Medications Refill Social History Tobacco [...] study documented in this encounter Care Teams Senior Qc Technician Relationship Specialty Start Date End Date None, None [address] [place] [address] [place] [address] PCP - General 04/11/19 Mychart, Generic Provider 09/01/20 Shena Lloyd MD [address] [place] [phone] Endocrinology/Diabetes/ Metabolism 12/30/20 Suellen Hurley NP [address] [place] [address] Nurse Practitioner Endocrinology/Diabetes/ Metabolism 03/29/21 documented as of this encounter
--- OUTSIDE RECORDS SUMMARY | 2025-03-20 17:55 | XMS_ITS | Clinical Summary ---
Author Organization [facility] Address [address] [place] [address] Care Team Providers Care Him Assistant Name Role Phone Unavailable Primary Care Provider Unavailabl e Source Comments [facility] is fully rolled out with thefollowing exceptions:General Clinical Research [facility] Social History Tobacco Use Types Packs/Day Years [...]
--- OUTSIDE RECORDS SUMMARY | 2025-03-20 17:55 | XMS_ITS | Encounter Summary ---
Author Organization [facility] Address [facility] [place] [address] Care Team Providers Care Security Developer Name Role Phone None, None Primary Care Provider Unavailabl e Mychart, Generic Provider Unavailable Shena Joe MD Unavailable [phone] Suellen Hurley NP Unavailable Reason for Visit * Reason Onset Date Comments Other 02/13/2020 EYE EXAM Encounter Details Date Type Department Care Team (Late st Contact Info) Description 02/13/2020 Clinical Update [facility] [place] [address] [place] [address] Suellen Hurley NP [address] [place] [address] Other (EYE EXAM) Social [...] on filedocumented in this encounter Care Teams Security Developer Relationship Specialty Start Date End Date None, None [address] [place] [address] PCP - General 04/11/19 Mychart, Generic Provider 09/01/20 Shena Lloyd MD [address] [place] [phone] Endocrinology/Diabetes/ Metabolism 12/30/20 Suellen Hurley NP [address] [place] [address] Nurse Practitioner Endocrinology/Diabetes/ Metabolism 03/29/21 documented as of this encounter
--- OUTSIDE RECORDS SUMMARY | 2025-03-20 17:55 | XMS_ITS | Clinical Summary ---
Author Organization [facility] Address [address] [place] [address] Care Team Providers Care Marriage And Family Counselor Name Role Phone None, None Primary Care Provider Unavailabl e Mychart, Generic Provider Unavailable Shena Joe MD Unavailable [phone] Suellen Hurley NP Unavailable Allergies No known active allergies Medications Blood-Glucose Meter Misc Use 1 Each as instructed 4 times daily (before meals and at bedtime). 1 Each 04/14/2019 4:02 PM EDT 04/14/20 19 Active Insulin [place], Disposable, 31 gauge x 5/16 NeedleIndications :Type [...] to the patient, Quantity 2, Lot Number [id number], Expiration 03/2020 6 mL 1 07/10/20 19 [...] EXTERNAL LAB Alb, Ur 1.30 mg/dL [facility] [employer] [facility] Alb Creat Ratio 20 0 [...] Lloyd MD URINE ORDERABLES Final Res ult [facility] [address] * (ABNORMAL) RENAL PROFILE (12/30/2020 4:22 [...] g/dL TC EXTERNAL LAB BUN/Creatinine Ratio 13 [facility] Serum (Serum) 12/30/2020 4:2 2 PM EDT 12/30/2020 7:02 PM EDT us Shena Lloyd MD CHEMISTRY ORDERABLES Final Result Performing Organization Address City/State/[facility] Co de Phone Number [facility] [address] * LIPID PROFILE (12/30/2020 4:22 PM [...] High HDL 59 40 - 180 mg/dL [facility] Comment: HDL CHOLESTEROL INTERPRETATION: Less than 40 mg/dL Low Greater than 60 mg/dL Desirable Triglycerides 101 0 - 150 mg/dL [facility] Comment: TOTAL TRIGLYCERIDE INTERPRETATION: Less than 150 mg/dL Normal 150-199 mg/dL Borderline HIgh 200-499 mg/dL High Greater or Equal to 500 mg/dL Very High Serum (Serum) 12/30/2020 4:2 2 PM EDT 12/30/2020 7:02 PM EDT Shena Lloyd MD CHEMISTRY ORDERABLES Final Result [facility] [address] [place] [address] * POCT AMB HEMOGLOBIN A1C (12/30/2020 3:54 [...] Advance Directives For more information, please contact: [phone] * Full Code (Latest Code Status on File) Date Activated Date Inactivated Comments 04/11/2019 6:39 PM 06/21/2023 10:47 AM No automate d chest compression devices for VAD Patients * Full Code Date Activated Date Inactivated Comments 04/11/2019 6:37 PM 04/11/2019 6:39 PM Care Teams Marriage And Family Counselor Relationship Specialty Start Date End Date None, None [address] [place] [address] PCP - General 04/11/19 Mychart, Generic Provider 09/01/20 Shena Lolyd MD [address] [place] [address] Endocrinology/Diabetes/ Metabolism 12/30/20 Suellen Hurley NP [address] [place] [address] Nurse Practitioner Endocrinology/Diabetes/ Metabolism 03/29/21
--- OUTSIDE RECORDS SUMMARY | 2025-03-20 17:55 | XMS_ITS | Encounter Summary ---
[facility] Address [address] [place] [address] Care Team Providers Care Online Community Manager Name Role Phone Gretchen Angelo APRN Primary Care Provider [phone] Encounter Details Date Type Department Care Team (Late st Contact Info) Description 03/09/2025 Results Follow-Up [facility] [address] [phone] Pavan Cruz MD [facility] [place] [place] [address] Social History Tobacco Use Types Packs/Day Years Used Date Smoking Tobacco: Never Passive Smoke Exposure: Never Smokeless Tobacco: Never Alcohol Use Standard Drinks/Week Comments Not Currently 1 (1 standard drink = 0.6 oz pur e alcohol) [facility] Utilities Answer Date Recorded In the past 12 months has [employer], gas, oil, or water [employer] threatened to shut off services in your [...] care, and heating? Not very hard 08/15/2024 [employer] [place] of Occupat ional Health - Occupational Stress [...] GED or equivalent No 08/15/2024 Preferred Language Romanian 08/15/2024 PHQ-2 Answer Date Recorded Patient Health [...] Description 09/07/2025 9:45 AM EST Office Visit [facility] [address] [phone] Pavan Cruz MD [address] [employer] [address] [address] documented as of this encounter Visit Diagnoses Not on filedocumented in this encounter Care Teams Online Community Manager Relationship Specialty Start Date End Date Gretchen Angelo APRN [address] [place] [address] PCP - General Nurse Practitioner 06/25/23 documented as of this encounter
[2025-03-20 18:47] LABS: Adenovirus,PCR Not Detected (NotDetected); Chlamydophila Pneumoniae, PCR Not Detected (NotDetected); Coronavirus 19, PCR Not Detected (NotDetected); Coronovirus HKU1,PCR Not Detected (NotDetected); Influenza A, PCR Not Detected (NotDetected); Influenza AH1, 2009 Not Detected (NotDetected); Influenza AH1, PCR Not Detected (NotDetected); Influenza AH3,PCR Not Detected (NotDetected); Influenza B, PCR Not Detected (NotDetected); Mycoplasma Pneumoniae, PCR Not Detected (NotDetected); Parainfluenza 1, PCR Not Detected (NotDetected); Parainfluenza 2, PCR Not Detected (NotDetected); Parainfluenza 3, PCR Not Detected (NotDetected); Parainfluenza 4, PCR Not Detected (NotDetected)
--- NOTE | 2025-03-20 18:54 | PC.NURSE ---
per md, run lactated ringers bolus first then start maintenance fluids based on dka protocol
[2025-03-20 19:17] LABS: Lactic Acid Follow Up (RFLX 1) 2.6 mmol/L (0.7-2.1)
[2025-03-20 19:21] LABS: Amphetamine/Metha Screen,Urine Negative ng/ml (<1000); Benzodiazepines Screen,Urine Negative ng/ml (<200)
[2025-03-20 19:22] LABS: Barbiturates Screen,Urine Negative ng/ml (<200)
[2025-03-20 19:23] LABS: POC Glucose,Bedside 357 gm/dL (70-110)
[2025-03-20 19:23] LABS: POC Glucose,Bedside 367 gm/dL (70-110)
[2025-03-20 19:23] LABS: POC Glucose,Bedside 298 gm/dL (70-110)
[2025-03-20 19:24] LABS: Methadone Screen,Urine Negative ng/ml (<300)
[2025-03-20 19:25] LABS: Opiate Screen,Urine Negative ng/ml (<300); Phencyclidine Screen,Urine Negative ng/ml (<25)
[2025-03-20] MEDS: 0.9% NaCl w/20mEq KCL 1,000 ML 150 ML IV (19:52)
[2025-03-20 20:44] LABS: Reflex Lactic (2 hrs) Add Lactic Reflex
--- NOTE | 2025-03-20 21:10 | EXP.HP ---
History of Present Illness *Admission Date: 03/20/25 *Reason for visit:: N/V *History of present illness: Barry Ratliff is a 24-year-old male with a medical significant for type 1 diabetes on insulin pump, cannabanoid hyperemesis syndrome, gastroparesis, medical nonadherence presents with intractable nausea/vomiting. Patient is not very talkative this time, looks very weak. He states his glucose monitor stopped working a few days ago, and he has not been checking his blood sugars with fingerstick glucometer. Therefore, he has not been giving his bolus insulin with his insulin pump. Endorses abdominal cramping, but otherwise denies chest pain, shortness of breath, fever/chills. Workup in the ED significant for WBC 30.2, AGAP 34, blood glucose 465, VBG pH 7.33 but bicarb of 13, UDS positive for THC, CT abdomen/pelvis suggestive of colitis and esophagitis. Given these findings, ED provider discussed case with me and I decided to admit patient for DKA. [facility] Disclaimer: The information contained in this section may have been updated after the patient was seen, as this information can be updated by other users. Medical History Insulin pump in place Vitamin D deficiency Vitamin B12 deficiency Non compliance with medical treatment Abdominal pain Abdominal pain Diabetes mellitus type 1 Hyperthyroidism Family History Other Cancer Diabetes Hypertension Social History (Updated 03/20/25 @ 18:00 by Mayi Hurley RN) Smoking Status: Current every day smoker tobacco type: e-cigarettes alcohol intake: never current occupational status: employed Travel in the last 8 weeks?: None Have you lived/traveled outside [place] in past 30 days?: No Contact w/someone who lives/traveled outside US past 30 days?: No Exposure to someone with infectious disease in past 14 days?: No Do you have a fever (greater than 100.4 F or 38 C)?: No Have you tested positive for COVID-19?: No Exposed to someone with COVID-19 in past 14 days?: No Do you have a sore throat?: No Do you have a cough?: No Do you have any weakness?: No Are you experiencing any nausea/vomitting?: Yes Do you have any diarrhea?: No Are you experiencing any unusual bleeding?: No Do you have any muscle aches/pain?: No Do you have any abdominal pain?: No Are you experiencing loss of taste or smell?: No Other Medical History Have you received the Flu Vaccine for this season: No Have you received the Pneumonia Vaccine: No Meds Home Medications and Allergies Home Medications ?Medication ?Instructions ?Recorded ?Confirmed ?Type blood-glucose sensor (FreeStyle #1 ea 08/18/24 02/24/25 Rx Poli 3 Sensor device) pen needle, diabetic 32 gauge x #1,200 ea 10/23/24 02/24/25 Rx /32 insulin lispro 100 unit/mL 0 unit SQ DIRECTED 02/14/25 03/20/25 History subcutaneous pen (Humalog KwikPen (U-100) Insulin) insulin lispro 200 unit/mL (3 mL) 10 - 15 unit SQ AC 02/15/25 03/20/25 History subcutaneous pen (Humalog KwikPen U-200 Insulin) metoclopramide HCl 5 mg tablet 5 - 10 mg (1 - 2 x 5 mg) PO ACHS 02/17/25 03/20/25 Rx (Reglan) 30 days #180 tabs pantoprazole 40 mg tablet,delayed 40 mg PO DAILY #30 tabs 02/17/25 03/20/25 Rx release New Prescriptions to Start Prescriptions: Allergies Allergy/AdvReac Type Severity Reaction Status Date / Time No Known Allergies Allergy Verified 02/24/25 11:07 Exam Data for Last 24 hours Vital signs and Labs for Last 24 Hours: Temp Pulse Resp BP Pulse Ox O2 Del Method 99.3 F 76 20 112/73 96 Room Air 03/20/25 20:00 03/20/25 20:00 03/20/25 20:00 03/20/25 20:00 03/20/25 20:00 03/20/25 21:00 Laboratory Results - last 24 hr 03/20/25 13:18: WBC 30.2 H*, RBC 5.60, Hgb 16.1, Hct 47.2, MCV 84.3, MCH 28.8, MCHC 34.1, RDW 12.2, Plt Count 389, MPV 8.6, Neut % (Auto) 83.7 H, Lymph % (Auto) 5.9 L, [place] % (Auto) 6.7, Eos % (Auto) 0.1, Baso % (Auto) 0.5, Neut # (Auto) 25.3 H, Lymph # (Auto) 1.8, [place] # (Auto) 2.0 H, Eos # (Auto) 0.0, Baso # (Auto) 0.2, Total Counted 100, Neutrophils % (Manual) 89 H, Lymphocytes % (Manual) 10, Monocytes % (Manual) 1 L, Platelet Estimate Normal, RBC Morphology Normal, Sodium 140, Potassium 5.0, Chloride 98, Carbon Dioxide 13 L, Anion Gap 34.0 H, BUN 26 H, Creatinine 1.00, Estimated Creat Clear 92, Estimated GFR 91, Est GFR ( Amer) 110, Glucose 465 H*, Calcium 10.7 H, Total Bilirubin 1.8 H, AST 42, ALT 26, Alkaline Phosphatase 107, Total Protein 9.3 H D, Albumin 5.8 H, Globulin 3.5 H, Albumin/Globulin Ratio 1.7, Lipase 26, Acetone Level Detected 03/20/25 13:20: VBG pH 7.33, VBG pCO2 30.9 L, VBG pO2 67.4 H, VBG HCO3 15.9 L, VBG Total CO2 16.8 L, VBG O2 Saturation 92.0 H, VBG Base Excess -10.1 L, VBG Lactic Acid 3.2 H 03/20/25 14:59: POC Glucose 316 H* 03/20/25 15:48: Sodium 140, Potassium 4.1, Chloride 99, Carbon Dioxide 18 L, Anion Gap 27.1 H, BUN 24 H, Creatinine 1.00, Estimated Creat Clear 92, Estimated GFR 91, Est GFR ( Amer) 110, Glucose 319 H D, Calcium 9.7, Total Bilirubin 1.2, AST 38, ALT 27, Alkaline Phosphatase 86, Total Protein 8.0, Albumin 5.3 H, Globulin 2.7, Albumin/Globulin Ratio 2.0 H 03/20/25 16:14: Urine Color Yellow, Urine Appearance Clear, Urine pH 6.0, Ur Specific [place] 1.020, Urine Protein Trace, Urine Glucose (UA) 2+, Urine Ketones 3+, Urine Blood 1+ A, Urine Nitrate Negative, Urine Bilirubin Negative, Urine Urobilinogen 0.2, Ur Leukocyte Esterase Negative, Urine RBC 5-10, Urine WBC Occasional, Ur Squamous Epith Cells None, Urine Bacteria Trace, Urine Opiates Screen Negative, Urine Methadone Screen Negative, Ur Barbituates Screen Negative, Ur Phencyclidine Scrn Negative, Ur Amphetamines Screen Negative, U Benzodiazepines Scrn Negative, Urine Cocaine Screen Negative, U Marijuana (THC) Screen Positive H 03/20/25 17:36: POC Glucose 367 H* 03/20/25 17:50: Chlamy pneumoniae PCR Not detected, Adenovirus (PCR) Not detected, B. pertussis DNA (PCR) Not detected, Coronavirus OC43 (PCR) Not detected, Coronavirus HKU1 (PCR) Not detected, Coronavirus 229E (PCR) Not detected, SARS-CoV-2 (PCR) Not detected, Coronavirus NL63 (PCR) Not detected, Human Metapneumovir PCR Not detected, Influenza A (H1) PCR Not detected, Influ A (H1N1/09) PCR Not detected, Influenza A (H3) PCR Not detected, Influenza Type A (PCR) Not detected, Influenza Type B (PCR) Not detected, M. pneumoniae (PCR) Not detected, Parainfluenza 1 (PCR) Not detected, Parainfluenza 2 (PCR) Not detected, Parainfluenza 3 (PCR) Not detected, Parainfluenza 4 (PCR) Not detected, RSV (PCR) Not detected, Entero/Rhino (PCR) Not detected 03/20/25 18:17: POC Glucose 357 H* 03/20/25 18:36: Lactate 2.6 H 03/20/25 18:59: POC Glucose 298 H I & O for Last 24 hours: Intake & Output 03/17/25 03/18/25 03/19/25 03/20/25 23:59 23:59 23:59 23:59 Intake Total 3000 / 3000 Output Total 400 / 400 Balance 2600 / 2600 Weight 51.313 kg Constitutional Constitutional: mild distress and cachectic *Routine HEENT Exam Head: Present normocephalic Eye: Present EOMI and PERRL ENT: Present mucous membranes moist *Routine Neck Exam Neck: Present supple; Absent lymphadenopathy *Routine Respiratory Exam Respiratory: Present CTA bilaterally *Routine Cardiovascular Exam Cardiovascular: Present RRR *Routine Abdominal Exam Abdominal: Present soft and normoactive bowel sounds; Absent tenderness *Routine Rectal Exam Rectal:: deferred *Routine Genitalia Exam Genitalia:: deferred *Routine Extremities Exam Extremities: Absent cyanosis, clubbing or edema *Routine Skin Exam Skin: Present warm; Absent rash *Routine Neurological Exam Neurological: Present alert and oriented X3 Assessment and Plan *Assessment and plan (1) Intractable nausea and vomiting: Status: Acute Category: Medical Code(s): R11.2 - Nausea with vomiting, unspecified (2) Colitis: Status: Acute Category: Medical Code(s): K52.9 - Noninfective gastroenteritis and colitis, unspecified (3) Diabetes mellitus type 1: Status: Acute Qualifiers: Diabetes mellitus complication status: with other specified complication Qualified Code(s): E10.69 - Type 1 diabetes mellitus with other specified complication Category: Medical Code(s): E10.9 - Type 1 diabetes mellitus without complications (4) DKA (diabetic ketoacidosis): Status: Resolved Qualifiers: Diabetes mellitus type: type 1 Diabetes mellitus complication detail: without coma Qualified Code(s): E10.10 - Type 1 diabetes mellitus with ketoacidosis without coma Category: Medical Code(s): E11.10 - Type 2 diabetes mellitus with ketoacidosis without coma Plan Barry Ratliff is a 24-year-old male with a medical significant for type 1 diabetes on insulin pump, cannabanoid hyperemesis syndrome, gastroparesis, medical nonadherence presents with intractable nausea/vomiting. Patient is not very talkative this time, looks very weak. He states his glucose monitor stopped working a few days ago, and he has not been checking his blood sugars with fingerstick glucometer. Therefore, he has not been giving his bolus insulin with his insulin pump. Endorses abdominal cramping, but otherwise denies chest pain, shortness of breath, fever/chills. Workup in the ED significant for WBC 30.2, AGAP 34, blood glucose 465, VBG pH 7.33 but bicarb of 13, UDS positive for THC, CT abdomen/pelvis suggestive of colitis and esophagitis. Given these findings, ED provider discussed case with me and I decided to admit patient for DKA. #Diabetic ketoacidosis #Type 1 diabetes ? Presented with intractable nausea/vomiting, states his freestyle poli monitor has stopped working a few days ago and has not been checking his blood sugar with fingerstick glucometer. Has not been giving his insulin boluses with insulin pump. ? Initial WBC 30.2, AGAP 34, blood glucose 465, VBG pH 7.33 but bicarb of 13 meeting criteria for DKA. Potassium 4.1. ? Initiated on DKA protocol, continue insulin drip and IV fluids per protocol. Ensure AGAP is closed x 2 and bicarb is > 18 before bridging with insulin and transitioning off drip. ? Ordered an additional 1 L LR bolus. 2 L given in the ED. ? Follow-up BMPs every 4 hours. ? Stopped insulin pump. Will need to make sure patient has a working freestyle poli upon discharge. #Colitis - Seen on CT abdomen/pelvis. ? Started Zosyn 3.375 g every 6 hours. WBC 30.2, likely also reactive in the setting of DKA. No signs of sepsis. ? Follow-up morning CBC. #Cannabinoid hyperemesis syndrome #Gastroparesis ? Continue home IV metoclopramide 5 mg ACHS. #GERD #Esophagitis ? Started IV Protonix 40 mg nightly. Hemoglobin stable at 16.1 today. Full code DVT prophylaxis: Lovenox 40 mg
[2025-03-20] MEDS: PANTOPRAZOLE 40MG VIAL 40 MG IV (22:02)
[2025-03-20] MEDS: PIPERCILLIN/TAZO 3.375 GM in 0.9 % SODIUM CHLORIDE 50 ML IV (22:03)
[2025-03-20 22:22] LABS: Chloride 110 mmol/L (98-107)
[2025-03-20 22:23] LABS: Potassium 4.4 mmoL/L (3.5-5.1); Sodium 144 mmol/L (136-145)
[2025-03-20 22:25] LABS: Blood Urea Nitrogen 22 mg/dl (9-20); Creatinine Clearance Estimated 91 mL/min (50-200); Creatinine,Serum 0.90 mg/dl (0.66-1.25); Estimated Glomerular Filt Rate 103 ml/min (>60); GFR (African American) 124 ML/MIN (>60)
[2025-03-20 22:26] LABS: Anion Gap 20.4 mEq/L (5-15); Calcium 9.7 mg/dl (8.4-10.2); Carbon Dioxide 18 mmol/L (22.0-30.0); Glucose 153 mg/dl (74-100); Lactic Acid Follow up (RFLX 2) 1.3 mmol/L (0.7-2.1); Magnesium 1.9 mg/dl (1.6-2.3); Phosphorous 2.2 mg/dl (2.5-4.5)
[2025-03-20] MEDS: D5W/0.9% NaCl w/20mEq KCL 1,000 ML 75 ML IV (23:27)
[2025-03-21] VITALS (30 sets, daily range): BP systolic 90–127; BP diastolic 48–74; PULSE 47–89; RESP 11–23; TEMP 36.3–37.2; O2SAT 93–99; BMI 17.9
[2025-03-21 01:59] LABS: Chloride 110 mmol/L (98-107)
[2025-03-21 02:00] LABS: Potassium 4.7 mmoL/L (3.5-5.1); Sodium 143 mmol/L (136-145)
[2025-03-21 02:02] LABS: Blood Urea Nitrogen 23 mg/dl (9-20); Creatinine Clearance Estimated 82 mL/min (50-200); Creatinine,Serum 1.00 mg/dl (0.66-1.25); Estimated Glomerular Filt Rate 91 ml/min (>60); GFR (African American) 110 ML/MIN (>60)
[2025-03-21 02:03] LABS: Anion Gap 15.7 mEq/L (5-15); Calcium 9.5 mg/dl (8.4-10.2); Carbon Dioxide 22 mmol/L (22.0-30.0); Glucose 201 mg/dl (74-100); Magnesium 1.8 mg/dl (1.6-2.3)
[2025-03-21 02:05] LABS: Phosphorous 1.8 mg/dl (2.5-4.5)
--- NOTE | 2025-03-21 02:12 | PC.NURSE ---
STAFF [employer] OFFICER notified that critical result called for phos 1.8.
[2025-03-21] MEDS: PIPERCILLIN/TAZO 3.375 GM in 0.9 % SODIUM CHLORIDE 50 ML IV ×4 (03:11→20:18)
[2025-03-21] MEDS: ONDANSETRON 4MG/2ML VIAL 4 MG IV ×3 (03:46→20:28)
[2025-03-21] MEDS: 0.9% NaCl w/20mEq KCL 1,000 ML 150 ML IV ×2 (05:46→15:07)
[2025-03-21 06:26] LABS: Nucleated Red Blood Cells % 0 %
[2025-03-21 06:33] LABS: Hematocrit 38.9 % (42.0-52.0); Immature Granulocytes % 1.3 %; Mean Corpuscular HGB Conc 34.7 g/dL (31.8-35.4); Mean Corpuscular Hemoglobin 29.5 pg (27.0-31.2); Mean Corpuscular Volume 84.9 fl (80-94); Platelet Count 322 K/mm3 (142-424); Red Blood Count 4.58 M/mm3 (4.60-6.20); Red Cell Distribution Width-SD 37.9 fL; White Blood Count 22.9 K/mm3 (4.8-10.8)
[2025-03-21 06:34] LABS: Hemoglobin 13.5 g/dL (14.1-18.0)
[2025-03-21 06:37] LABS: Anion Gap 19.4 mEq/L (5-15); Blood Urea Nitrogen 23 mg/dl (9-20); Calcium 8.8 mg/dl (8.4-10.2); Carbon Dioxide 19 mmol/L (22.0-30.0); Chloride 110 mmol/L (98-107); Creatinine Clearance Estimated 92 mL/min (50-200); Creatinine,Serum 0.90 mg/dl (0.66-1.25); Estimated Glomerular Filt Rate 103 ml/min (>60); GFR (African American) 124 ML/MIN (>60); Glucose 199 mg/dl (74-100); Magnesium 1.8 mg/dl (1.6-2.3); Phosphorous 2.9 mg/dl (2.5-4.5); Potassium 4.4 mmoL/L (3.5-5.1); Sodium 144 mmol/L (136-145)
--- NOTE | 2025-03-21 06:40 | PC.NURSE ---
ADULT LITERACY TEACHER notified that patient is bradycardic when sleeping, hr dropped to low 40s this am and back to normal limits while awake.
[2025-03-21 06:48] LABS: Magnesium 1.7 mg/dl (1.6-2.3)
[2025-03-21 08:56] LABS: Total Cells Counted 100
[2025-03-21 08:57] LABS: Hypochromasia 2+
[2025-03-21 10:14] LABS: Chloride 114 mmol/L (98-107); Potassium 4.4 mmoL/L (3.5-5.1); Sodium 146 mmol/L (136-145)
[2025-03-21 10:17] LABS: Anion Gap 11.4 mEq/L (5-15); Blood Urea Nitrogen 23 mg/dl (9-20); Calcium 9.1 mg/dl (8.4-10.2); Carbon Dioxide 25 mmol/L (22.0-30.0); Creatinine Clearance Estimated 92 mL/min (50-200); Creatinine,Serum 0.90 mg/dl (0.66-1.25); Estimated Glomerular Filt Rate 103 ml/min (>60); GFR (African American) 124 ML/MIN (>60); Glucose 142 mg/dl (74-100); Magnesium 1.9 mg/dl (1.6-2.3)
[2025-03-21 10:30] LABS: Phosphorous 1.7 mg/dl (2.5-4.5)
--- NOTE | 2025-03-21 10:58 | INFXCTL.NOTE ---
1030 Dr Guzman on unit for patient rounds.
[2025-03-21] MEDS: SODIUM PHOSPHATE 15 MMOL in 0.9 % SODIUM CHLORIDE 250 ML 63.75 MMOL IV (11:57)
[2025-03-21 14:44] LABS: Chloride 113 mmol/L (98-107); Sodium 145 mmol/L (136-145)
[2025-03-21 14:45] LABS: Potassium 4.2 mmoL/L (3.5-5.1)
[2025-03-21 14:47] LABS: Blood Urea Nitrogen 22 mg/dl (9-20); Creatinine Clearance Estimated 103 mL/min (50-200); Creatinine,Serum 0.80 mg/dl (0.66-1.25); Estimated Glomerular Filt Rate 118 ml/min (>60); GFR (African American) 143 ML/MIN (>60)
[2025-03-21 14:48] LABS: Anion Gap 15.2 mEq/L (5-15); Calcium 8.6 mg/dl (8.4-10.2); Carbon Dioxide 21 mmol/L (22.0-30.0); Glucose 218 mg/dl (74-100)
[2025-03-21] MEDS: INSULIN REGULAR, HUMAN 100 UNIT in 0.9 % SODIUM CHLORIDE 100 ML IV (15:05)
--- NOTE | 2025-03-21 16:31 | EXP.PN ---
Subjective *Date: 03/21/25 *Time: 16:59 Interval history: Patient feeling better today, but continues to look quite weak and lethargic. No conversational. Continue DKA protocol to ensure AGAP has closed twice. Exam Data for Last 24 hours Vital signs and Labs for Last 24 Hours: Temp Pulse Resp BP Pulse Ox O2 Del Method 98.3 F 62 21 93/61 L 98 Room Air 03/21/25 12:24 03/21/25 14:00 03/21/25 14:00 03/21/25 14:00 03/21/25 14:00 03/21/25 14:00 Laboratory Results - last 24 hr 03/20/25 16:14: Urine Color Yellow, Urine Appearance Clear, Urine pH 6.0, Ur Specific [place] 1.020, Urine Protein Trace, Urine Glucose (UA) 2+, Urine Ketones 3+, Urine Blood 1+ A, Urine Nitrate Negative, Urine Bilirubin Negative, Urine Urobilinogen 0.2, Ur Leukocyte Esterase Negative, Urine RBC 5-10, Urine WBC Occasional, Ur Squamous Epith Cells None, Urine Bacteria Trace, Urine Opiates Screen Negative, Urine Methadone Screen Negative, Ur Barbituates Screen Negative, Ur Phencyclidine Scrn Negative, Ur Amphetamines Screen Negative, U Benzodiazepines Scrn Negative, Urine Cocaine Screen Negative, U Marijuana (THC) Screen Positive H 03/20/25 17:36: POC Glucose 367 H* 03/20/25 17:50: Chlamy pneumoniae PCR Not detected, Adenovirus (PCR) Not detected, B. pertussis DNA (PCR) Not detected, Coronavirus OC43 (PCR) Not detected, Coronavirus HKU1 (PCR) Not detected, Coronavirus 229E (PCR) Not detected, SARS-CoV-2 (PCR) Not detected, Coronavirus NL63 (PCR) Not detected, Human Metapneumovir PCR Not detected, Influenza A (H1) PCR Not detected, Influ A (H1N1/09) PCR Not detected, Influenza A (H3) PCR Not detected, Influenza Type A (PCR) Not detected, Influenza Type B (PCR) Not detected, M. pneumoniae (PCR) Not detected, Parainfluenza 1 (PCR) Not detected, Parainfluenza 2 (PCR) Not detected, Parainfluenza 3 (PCR) Not detected, Parainfluenza 4 (PCR) Not detected, RSV (PCR) Not detected, Entero/Rhino (PCR) Not detected 03/20/25 18:17: POC Glucose 357 H* 03/20/25 18:36: Lactate 2.6 H 03/20/25 18:59: POC Glucose 298 H 03/20/25 22:10: Sodium 144, Potassium 4.4, Chloride 110 H, Carbon Dioxide 18 L, Anion Gap 20.4 H, BUN 22 H, Creatinine 0.90, Estimated Creat Clear 91, Estimated GFR 103, Est GFR ( Amer) 124, Glucose 153 H D, Lactate 1.3, Calcium 9.7, Phosphorus 2.2 L, Magnesium 1.9 03/21/25 01:45: Sodium 143, Potassium 4.7, Chloride 110 H, Carbon Dioxide 22, Anion Gap 15.7 H, BUN 23 H, Creatinine 1.00, Estimated Creat Clear 82, Estimated GFR 91, Est GFR ( Amer) 110, Glucose 201 H D, Calcium 9.5, Phosphorus 1.8 L, Magnesium 1.8 03/21/25 06:00: WBC 22.9 H*, RBC 4.58 L, Hgb 13.5 L D, Hct 38.9 L, MCV 84.9, MCH 29.5, MCHC 34.7, RDW 12.5, Plt Count 322, MPV 8.3, Neut % (Auto) 83.1 H, Lymph % (Auto) 7.7 L, [place] % (Auto) 7.7, Eos % (Auto) 0.0 L, Baso % (Auto) 0.2, Neut # (Auto) 19.0 H, Lymph # (Auto) 1.8, [place] # (Auto) 1.8 H, Eos # (Auto) 0.0, Baso # (Auto) 0.1, Total Counted 100, Neutrophils % (Manual) 75, Lymphocytes % (Manual) 18, Monocytes % (Manual) 7, Platelet Estimate Normal, Hypochromasia 2+, Sodium 144, Potassium 4.4, Chloride 110 H, Carbon Dioxide 19 L, Anion Gap 19.4 H, BUN 23 H, Creatinine 0.90, Estimated Creat Clear 92, Estimated GFR 103, Est GFR ( Amer) 124, Glucose 199 H, Calcium 8.8, Phosphorus 2.9 D, Magnesium 1.7 03/21/25 06:00: Magnesium 1.8 03/21/25 10:00: Sodium 146 H, Potassium 4.4, Chloride 114 H, Carbon Dioxide 25, Anion Gap 11.4, BUN 23 H, Creatinine 0.90, Estimated Creat Clear 92, Estimated GFR 103, Est GFR ( Amer) 124, Glucose 142 H D, Calcium 9.1, Phosphorus 1.7 L D, Magnesium 1.9 03/21/25 14:15: Sodium 145, Potassium 4.2, Chloride 113 H, Carbon Dioxide 21 L, Anion Gap 15.2 H, BUN 22 H, Creatinine 0.80, Estimated Creat Clear 103, Estimated GFR 118, Est GFR ( Amer) 143, Glucose 218 H D, Calcium 8.6 I & O for Last 24 hours: Intake & Output 03/18/25 03/19/25 03/20/25 03/21/25 23:59 23:59 23:59 23:59 Intake Total 4626.084 / 4626.084 2432.747 / 2432.747 Output Total 400 / 500 600 / 600 Balance 4226.084 / 4126.084 1832.747 / 1832.747 Weight 51.313 kg 51.619 kg Constitutional Constitutional: no acute distress Comments: Lethargic, but improved. *Routine HEENT Exam Head: Present normocephalic Eye: Present EOMI and PERRL ENT: Present mucous membranes moist *Routine Neck Exam Neck: Present supple; Absent lymphadenopathy *Routine Respiratory Exam Respiratory: Present CTA bilaterally *Routine Cardiovascular Exam Cardiovascular: Present RRR *Routine Abdominal Exam Abdominal: Present soft and normoactive bowel sounds; Absent tenderness *Routine Extremities Exam Extremities: Absent cyanosis, clubbing or edema *Routine Skin Exam Skin: Present warm; Absent rash *Routine Neurological Exam Neurological: Present alert and oriented X3 Assessment and Plan *Assessment and plan (1) Intractable nausea and vomiting: Status: Acute Category: Medical Code(s): R11.2 - Nausea with vomiting, unspecified (2) Colitis: Status: Acute Category: Medical Code(s): K52.9 - Noninfective gastroenteritis and colitis, unspecified (3) Diabetes mellitus type 1: Status: Acute Qualifiers: Diabetes mellitus complication status: with other specified complication Qualified Code(s): E10.69 - Type 1 diabetes mellitus with other specified complication Category: Medical Code(s): E10.9 - Type 1 diabetes mellitus without complications (4) DKA (diabetic ketoacidosis): Status: Resolved Qualifiers: Diabetes mellitus complication detail: without coma Diabetes mellitus type: type 1 Qualified Code(s): E10.10 - Type 1 diabetes mellitus with ketoacidosis without coma Category: Medical Code(s): E11.10 - Type 2 diabetes mellitus with ketoacidosis without coma Plan Barry Ratliff is a 24-year-old male with a medical significant for type 1 diabetes on insulin pump, cannabanoid hyperemesis syndrome, gastroparesis, medical nonadherence presents with intractable nausea/vomiting. Patient is not very talkative this time, looks very weak. He states his glucose monitor stopped working a few days ago, and he has not been checking his blood sugars with fingerstick glucometer. Therefore, he has not been giving his bolus insulin with his insulin pump. Endorses abdominal cramping, but otherwise denies chest pain, shortness of breath, fever/chills. Workup in the ED significant for WBC 30.2, AGAP 34, blood glucose 465, VBG pH 7.33 but bicarb of 13, UDS positive for THC, CT abdomen/pelvis suggestive of colitis and esophagitis. Given these findings, ED provider discussed case with me and I decided to admit patient for DKA. #Diabetic ketoacidosis #Type 1 diabetes ? Presented with intractable nausea/vomiting, states his freestyle tomasz monitor has stopped working a few days ago and has not been checking his blood sugar with fingerstick glucometer. Has not been giving his insulin boluses with insulin pump. ? Initial WBC 30.2, AGAP 34, blood glucose 465, VBG pH 7.33 but bicarb of 13 meeting criteria for DKA. Potassium 4.1. ? AGAP and bicarb improving, currently 15 and 21 respectively. Will obtain BMP at 6 PM to ensure closure of DKA before transitioning off insulin drip. ? Continue DKA protocol, continue insulin drip and IV fluids per protocol. Ensure AGAP is closed x 2 and bicarb is > 18 before bridging with insulin and transitioning off drip. ? Patient feels better today, more conversational. Continues to look quite weak, but improving. ? Follow-up BMP at 6 PM. ? Stopped insulin pump. Will need to make sure patient has a working freestyle tomasz upon discharge. #Colitis - Seen on CT abdomen/pelvis. ? Continue Zosyn 3.375 g every 6 hours. WBC improved from 3223 today, likely also reactive in the setting of DKA. No signs of sepsis. ? Follow-up morning CBC. #Cannabinoid hyperemesis syndrome #Gastroparesis ? Continue home IV metoclopramide 5 mg ACHS. #GERD #Esophagitis ? Continue IV Protonix 40 mg nightly. Hemoglobin stable at 13.5. Full code DVT prophylaxis: Lovenox 40 mg
[2025-03-21] MEDS: METOCLOPRAMIDE HCL 10MG/2ML VIAL 5 MG IVP ×2 (17:17→20:10)
[2025-03-21 17:29] LABS: Hemoglobin A1C 7.6 % (4.0-6.0)
--- NOTE | 2025-03-21 17:58 | PC.NURSE ---
Patient has appeared to rest in bed this shift. pt has been noted to be in various positions, including kneeling on the bed with his forehead resting on the mattress. pt will answer question when asked, but otherwise does not converse with staff. while in room pt mother visited as well, pt also spoke little to her. pt in bed in street clothes. nad noted. lungs clear but diminished. bowel sounds are active in all quads. pt remains in bed. pt was offered bath and linen change by SRNA, but patient refused.
[2025-03-21 18:46] LABS: Chloride 115 mmol/L (98-107); Potassium 3.9 mmoL/L (3.5-5.1); Sodium 146 mmol/L (136-145)
[2025-03-21 18:49] LABS: Blood Urea Nitrogen 21 mg/dl (9-20); Creatinine Clearance Estimated 103 mL/min (50-200); Creatinine,Serum 0.80 mg/dl (0.66-1.25); Estimated Glomerular Filt Rate 118 ml/min (>60); GFR (African American) 143 ML/MIN (>60)
[2025-03-21 18:50] LABS: Anion Gap 11.9 mEq/L (5-15); Calcium 8.3 mg/dl (8.4-10.2); Carbon Dioxide 23 mmol/L (22.0-30.0); Glucose 187 mg/dl (74-100)
[2025-03-21 19:21] LABS: Thyroid Stimulating Hormone 0.33 uIU/mL (0.465-4.68)
[2025-03-21] MEDS: PANTOPRAZOLE 40MG VIAL 40 MG IV (20:10)
[2025-03-21] MEDS: INSULIN GLARGINE 100 UNITS/ML 3ML FLEXPEN 10 UNIT SUBCUT (21:21)
--- NOTE | 2025-03-21 21:39 | EXP.EVENT.NO ---
Anion gap closed x 2. Patient does not have everything he needs to resume his home pump. Will transition to basal bolus regimen and reevaluate pump initiation tomorrow. Monitoring fingerstick glucose every 2 hours x 2 and then every 4 hours thereafter until morning. Will resume ACHS in the morning. Repeat BMP ordered for a.m. labs
[2025-03-22] VITALS (36 sets, daily range): BP systolic 79–144; BP diastolic 47–92; PULSE 48–110; RESP 10–21; TEMP 36.6–37.7; O2SAT 83–100; BMI 17.6
--- NOTE | 2025-03-22 01:19 | PC.NURSE ---
Glucose 187 @ 0045. Give [address] Schultz. Stop finger sticks for now. Recheck glucose with morning labs.
[2025-03-22] MEDS: humaLOG 100 UNITS/ML 10ML VIAL (SSI) SUBCUT ×3 (01:27→13:28)
[2025-03-22] MEDS: PIPERCILLIN/TAZO 3.375 GM in 0.9 % SODIUM CHLORIDE 50 ML IV ×4 (03:19→21:49)
[2025-03-22] MEDS: ONDANSETRON 4MG/2ML VIAL 4 MG IV ×4 (03:55→22:36)
[2025-03-22 06:30] LABS: Hematocrit 38.6 % (42.0-52.0); Hemoglobin 13.2 g/dL (14.1-18.0); Immature Granulocytes % 1.0 %; Mean Corpuscular HGB Conc 34.2 g/dL (31.8-35.4); Mean Corpuscular Hemoglobin 29.5 pg (27.0-31.2); Mean Corpuscular Volume 86.2 fl (80-94); Nucleated Red Blood Cells % 0 %; Platelet Count 272 K/mm3 (142-424); Red Blood Count 4.48 M/mm3 (4.60-6.20); Red Cell Distribution Width-SD 39.0 fL; White Blood Count 18.6 K/mm3 (4.8-10.8)
[2025-03-22] MEDS: METOCLOPRAMIDE HCL 10MG/2ML VIAL 5 MG IVP ×2 (06:40→11:00)
[2025-03-22 06:42] LABS: Alanine Aminotransferase 21 U/L (12-78); Albumin Level 4.4 g/dl (3.5-5.0); Albumin/Globulin Ratio 2.0 (1.1-1.8); Alkaline Phosphatase 71 U/L (38-126); Anion Gap 19.8 mEq/L (5-15); Aspartate Amino Transferase 39 U/L (17-59); Bilirubin,Total 1.1 mg/dl (0.2-1.3); Blood Urea Nitrogen 20 mg/dl (9-20); Calcium 8.6 mg/dl (8.4-10.2); Carbon Dioxide 19 mmol/L (22.0-30.0); Chloride 110 mmol/L (98-107); Creatinine Clearance Estimated 101 mL/min (50-200); Creatinine,Serum 0.80 mg/dl (0.66-1.25); Estimated Glomerular Filt Rate 118 ml/min (>60); GFR (African American) 143 ML/MIN (>60); Globulin 2.2 g/dL (1.3-3.2); Glucose 210 mg/dl (74-100); Potassium 3.8 mmoL/L (3.5-5.1); Sodium 145 mmol/L (136-145); Total Protein,Serum 6.6 g/dl (6.3-8.2)
--- NOTE | 2025-03-22 06:53 | PC.NURSE ---
Insulin gtt off at 2215. Pt switched to ACHS. Intermittent nausea. Zofran given x2.
[2025-03-22 07:00] LABS: Magnesium 1.8 mg/dl (1.6-2.3)
[2025-03-22] MEDS: LACTATED RINGERS 1000ML 1,000 ML 999 ML IV (08:24)
[2025-03-22 09:19] LABS: POC Glucose,Bedside 451 gm/dL (70-110)
[2025-03-22] MEDS: BELLADONNA ALKALOIDS 60 ML ML PO (10:20)
[2025-03-22 12:06] LABS: Chloride 112 mmol/L (98-107); Potassium 3.9 mmoL/L (3.5-5.1); Sodium 143 mmol/L (136-145)
[2025-03-22 12:09] LABS: Anion Gap 13.9 mEq/L (5-15); Blood Urea Nitrogen 19 mg/dl (9-20); Calcium 8.7 mg/dl (8.4-10.2); Carbon Dioxide 21 mmol/L (22.0-30.0); Creatinine Clearance Estimated 101 mL/min (50-200); Creatinine,Serum 0.80 mg/dl (0.66-1.25); Estimated Glomerular Filt Rate 118 ml/min (>60); GFR (African American) 143 ML/MIN (>60); Glucose 222 mg/dl (74-100)
[2025-03-22] MEDS: LACTATED RINGERS 1000ML 1,000 ML 100 ML IV (14:41)
--- NOTE | 2025-03-22 14:46 | PC.NURSE ---
Patient started insulin pump at 1400.
[2025-03-22] MEDS: METOCLOPRAMIDE HCL 10MG/2ML VIAL 10 MG IVP ×2 (15:34→21:49)
--- NOTE | 2025-03-22 17:28 | PC.NURSE ---
Report given to ADDIS Tirado at this time. Patient to be transferred to med surg room 201.
--- NOTE | 2025-03-22 17:34 | P.PN_ITS ---
Subjective *Date: 03/22/25 *Time: 17:34 Interval history: Patient much more conversational today, more active. However, having episodes of nausea/vomiting. High risk of decompensation back to DKA. Continue IV fluids, metoclopramide, Zosyn. Exam Data for Last 24 hours Vital signs and Labs for Last 24 Hours: Temp Pulse Resp BP Pulse Ox O2 Del Method 97.9 F 110 H 16 110/81 97 Room Air 03/22/25 16:00 03/22/25 16:00 03/22/25 16:00 03/22/25 16:00 03/22/25 16:00 03/22/25 17:00 Laboratory Results - last 24 hr 03/20/25 13:12: POC Glucose 451 H* 03/21/25 18:23: Sodium 146 H, Potassium 3.9, Chloride 115 H, Carbon Dioxide 23, Anion Gap 11.9, BUN 21 H, Creatinine 0.80, Estimated Creat Clear 103, Estimated GFR 118, Est GFR ( Amer) 143, Glucose 187 H, Calcium 8.3 L, TSH 0.33 L 03/22/25 06:15: WBC 18.6 H, RBC 4.48 L, Hgb 13.2 L, Hct 38.6 L, MCV 86.2, MCH 29.5, MCHC 34.2, RDW 12.3, Plt Count 272, MPV 8.5, Neut % (Auto) 83.3 H, Lymph % (Auto) 7.7 L, [place] % (Auto) 7.8, Eos % (Auto) 0.0 L, Baso % (Auto) 0.2, Neut # (Auto) 15.5 H, Lymph # (Auto) 1.4, [place] # (Auto) 1.5 H, Eos # (Auto) 0.0, Baso # (Auto) 0.0, Sodium 145, Potassium 3.8, Chloride 110 H, Carbon Dioxide 19 L, Anion Gap 19.8 H, BUN 20, Creatinine 0.80, Estimated Creat Clear 101, Estimated GFR 118, Est GFR ( Amer) 143, Glucose 210 H, Calcium 8.6, Magnesium 1.8, Total Bilirubin 1.1, AST 39, ALT 21, Alkaline Phosphatase 71, Total Protein 6.6, Albumin 4.4, Globulin 2.2, Albumin/Globulin Ratio 2.0 H 03/22/25 11:55: Sodium 143, Potassium 3.9, Chloride 112 H, Carbon Dioxide 21 L, Anion Gap 13.9, BUN 19, Creatinine 0.80, Estimated Creat Clear 101, Estimated GFR 118, Est GFR ( Amer) 143, Glucose 222 H, Calcium 8.7 I & O for Last 24 hours: Intake & Output 03/19/25 03/20/25 03/21/25 03/22/25 23:59 23:59 23:59 23:59 Intake Total 4626.084 / 4626.084 3753.930 / 3753.930 1250 / 1250 Output Total 400 / 500 1325 / 1325 950 / 950 Balance 4226.084 / 4126.084 2428.930 / 2428.930 300 / 300 Weight 51.313 kg 51.619 kg 50.8 kg Microbiology Reports for the Last 24 Hours: Microbiology 03/20/25 16:50 Blood Blood Culture - Preliminary NO GROWTH AFTER 48 HOURS 03/20/25 16:45 Blood Blood Culture - Preliminary NO GROWTH AFTER 48 HOURS Constitutional Constitutional: no acute distress Comments: Lethargic, but improved. *Routine HEENT Exam Head: Present normocephalic Eye: Present EOMI and PERRL ENT: Present mucous membranes moist *Routine Neck Exam Neck: Present supple; Absent lymphadenopathy *Routine Respiratory Exam Respiratory: Present CTA bilaterally *Routine Cardiovascular Exam Cardiovascular: Present RRR *Routine Abdominal Exam Abdominal: Present soft, normoactive bowel sounds and tenderness Comments: Epigastric abdominal pain. *Routine Extremities Exam Extremities: Absent cyanosis, clubbing or edema *Routine Skin Exam Skin: Present warm; Absent rash *Routine Neurological Exam Neurological: Present alert and oriented X3 Assessment and Plan *Assessment and plan (1) Intractable nausea and vomiting: Status: Acute Category: Medical Code(s): R11.2 - Nausea with vomiting, unspecified (2) Colitis: Status: Acute Category: Medical Code(s): K52.9 - Noninfective gastroenteritis and colitis, unspecified (3) Diabetes mellitus type 1: Status: Acute Qualifiers: Diabetes mellitus complication status: with other specified complication Qualified Code(s): E10.69 - Type 1 diabetes mellitus with other specified complication Category: Medical Code(s): E10.9 - Type 1 diabetes mellitus without complications (4) DKA (diabetic ketoacidosis): Status: Resolved Qualifiers: Diabetes mellitus type: type 1 Diabetes mellitus complication detail: without coma Qualified Code(s): E10.10 - Type 1 diabetes mellitus with ketoacidosis without coma Category: Medical Code(s): E11.10 - Type 2 diabetes mellitus with ketoacidosis without coma Plan Barry Ratliff is a 24-year-old male with a medical significant for type 1 diabetes on insulin pump, cannabanoid hyperemesis syndrome, gastroparesis, medical nonadherence presents with intractable nausea/vomiting. Patient is not very talkative this time, looks very weak. He states his glucose monitor stopped working a few days ago, and he has not been checking his blood sugars with fingerstick glucometer. Therefore, he has not been giving his bolus insulin with his insulin pump. Endorses abdominal cramping, but otherwise denies chest pain, shortness of breath, fever/chills. Workup in the ED sig nificant for WBC 30.2, AGAP 34, blood glucose 465, VBG pH 7.33 but bicarb of 13, UDS positive for THC, CT abdomen/pelvis suggestive of colitis and esophagitis. Given these findings, ED provider discussed case with me and I decided to admit patient for DKA. #Diabetic ketoacidosis #Type 1 diabetes #Cannabinoid hyperemesis syndrome #Gastroparesis ? Presented with intractable nausea/vomiting, states his freestyle tomasz monitor has stopped working a few days ago and has not been checking his blood sugar with fingerstick glucometer. Has not been giving his insulin boluses with insulin pump. ? Initial WBC 30.2, AGAP 34, blood glucose 465, VBG pH 7.33 but bicarb of 13 meeting criteria for DKA. ? AGAP opened again at 19, improved to 13.9 with IV fluid resuscitation. ? Insulin pump was refilled with lispro, and restarted. Basal rate of total 16 units daily. Will give lispro boluses based on SSI with meals. Freestyle tomasz is functional, but 20 units off our glucometer. Needs calibration. ? Unfortunately, patient continues to have nausea/vomiting possibly from cannabinoid hyperemesis syndrome and underlying colitis. High risk of decompensation, and flipping back into DKA. ? Will continue LR at 100 L/h. Follow-up BMP in the morning. ? Increased IV metoclopramide to 10 mg ACHS. #Colitis - Seen on CT abdomen/pelvis. ? Continue Zosyn 3.375 g every 6 hours. WBC improved to 18.6 today, likely also reactive in the setting of DKA. No signs of sepsis. ? Follow-up morning CBC. #GERD #Esophagitis ? Continues to have epigastric pain, nausea/vomiting. Increased IV Protonix 40 mg to twice daily. Hemoglobin stable at 13.2. Full code DVT prophylaxis: Lovenox 40 mg
[2025-03-22 20:02] LABS: POC Glucose,Bedside 168 gm/dL (70-110)
[2025-03-22] MEDS: PANTOPRAZOLE 40MG VIAL 40 MG IV (21:49)
[2025-03-22] MEDS: SODIUM CHLORIDE 0.9% 10ML VIAL 10 ML IV (21:49)
[2025-03-22] MEDS: SUCRALFATE 1GM TABLET 1 GM PO (22:44)
[2025-03-23] VITALS: BP 111/55; PULSE 52; RESP 16; TEMP 36.9; O2SAT 95
[2025-03-23] MEDS: PIPERCILLIN/TAZO 3.375 GM in 0.9 % SODIUM CHLORIDE 50 ML IV ×3 (03:39→15:48)
[2025-03-23] MEDS: LACTATED RINGERS 1000ML 1,000 ML 100 ML IV (03:40)
[2025-03-23 04:00] VITALS: BP 130/68; PULSE 60; RESP 16; TEMP 36.7; O2SAT 100; BMI 18.7
[2025-03-23] MEDS: ONDANSETRON 4MG/2ML VIAL 4 MG IV ×2 (04:23→11:13)
[2025-03-23] MEDS: METOCLOPRAMIDE HCL 10MG/2ML VIAL 10 MG IVP ×3 (05:51→15:47)
[2025-03-23 06:05] LABS: POC Glucose,Bedside 166 gm/dL (70-110)
[2025-03-23 06:30] LABS: Hematocrit 36.3 % (42.0-52.0); Hemoglobin 12.1 g/dL (14.1-18.0); Immature Granulocytes % 0.5 %; Mean Corpuscular HGB Conc 33.3 g/dL (31.8-35.4); Mean Corpuscular Hemoglobin 28.8 pg (27.0-31.2); Mean Corpuscular Volume 86.4 fl (80-94); Nucleated Red Blood Cells % 0 %; Platelet Count 216 K/mm3 (142-424); Red Blood Count 4.20 M/mm3 (4.60-6.20); Red Cell Distribution Width-SD 39.1 fL; White Blood Count 9.2 K/mm3 (4.8-10.8)
[2025-03-23 06:45] LABS: Alanine Aminotransferase 22 U/L (12-78); Albumin Level 3.8 g/dl (3.5-5.0); Albumin/Globulin Ratio 1.8 (1.1-1.8); Alkaline Phosphatase 52 U/L (38-126); Anion Gap 11.4 mEq/L (5-15); Aspartate Amino Transferase 37 U/L (17-59); Bilirubin,Total 0.9 mg/dl (0.2-1.3); Blood Urea Nitrogen 21 mg/dl (9-20); Calcium 8.4 mg/dl (8.4-10.2); Carbon Dioxide 29 mmol/L (22.0-30.0); Chloride 108 mmol/L (98-107); Creatinine Clearance Estimated 96 mL/min (50-200); Creatinine,Serum 0.90 mg/dl (0.66-1.25); Estimated Glomerular Filt Rate 103 ml/min (>60); GFR (African American) 124 ML/MIN (>60); Globulin 2.1 g/dL (1.3-3.2); Glucose 161 mg/dl (74-100); Potassium 3.4 mmoL/L (3.5-5.1); Sodium 145 mmol/L (136-145); Total Protein,Serum 5.9 g/dl (6.3-8.2)
[2025-03-23 06:55] LABS: Magnesium 1.8 mg/dl (1.6-2.3)
--- NOTE | 2025-03-23 07:41 | EXP.PHA.PN ---
Subjective *Date: 03/23/25 *Time: 07:41 Medical Exam Vital signs and Labs for Last 24 Hours: Vital Signs Temp Pulse Pulse Resp BP BP Pulse Ox 03/23/25 07:33 03/23/25 06:27 03/23/25 05:00 03/23/25 04:00 98.1 F 60 16 130/68 100 03/23/25 03:00 03/23/25 01:00 03/23/25 00:00 98.4 F 52 L 16 111/55 L 95 03/22/25 23:00 03/22/25 21:00 03/22/25 20:00 03/22/25 20:00 99.8 F H 53 L 16 117/63 100 03/22/25 17:55 03/22/25 17:00 03/22/25 16:00 110 H 03/22/25 16:00 97.9 F 64 16 110/81 97 03/22/25 15:00 03/22/25 14:39 53 L 13 79/56 L 97 03/22/25 13:00 03/22/25 13:00 52 L 16 113/70 98 03/22/25 12:00 60 03/22/25 12:00 96 03/22/25 12:00 98.2 F 65 14 98/58 L 97 03/22/25 11:00 62 14 104/69 L 97 03/22/25 11:00 03/22/25 10:00 65 13 129/76 100 03/22/25 09:00 48 L 11 L 122/67 97 03/22/25 09:00 67 16 122/67 100 03/22/25 09:00 03/22/25 08:33 99 03/22/25 08:00 50 L 03/22/25 08:00 98.6 F 57 L 16 90/51 L 98 O2 Del Method 03/23/25 07:33 Room Air 03/23/25 06:27 Room Air 03/23/25 05:00 Room Air 03/23/25 04:00 Room Air 03/23/25 03:00 Room Air 03/23/25 01:00 Room Air 03/23/25 00:00 Room Air 03/22/25 23:00 Room Air 03/22/25 21:00 Room Air 03/22/25 20:00 Room Air 03/22/25 20:00 Room Air 03/22/25 17:55 Room Air 03/22/25 17:00 Room Air 03/22/25 16:00 03/22/25 16:00 Room Air 03/22/25 15:00 Room Air 03/22/25 14:39 Room Air 03/22/25 13:00 Room Air 03/22/25 13:00 Room Air 03/22/25 12:00 03/22/25 12:00 Room Air 03/22/25 12:00 Room Air 03/22/25 11:00 Room Air 03/22/25 11:00 Room Air 03/22/25 10:00 Room Air 03/22/25 09:00 Room Air 03/22/25 09:00 Room Air 03/22/25 09:00 Room Air 03/22/25 08:33 Room Air 03/22/25 08:00 03/22/25 08:00 Room Air Intake and Output 03/22/25 03/22/25 03/23/25 15:59 23:59 07:59 Intake Total 1150 / 1540 100 / 1540 1290 / 1290 Output Total 650 / 950 0 / 0 Balance 500 / 590 100 / 590 1290 / 1290 Intake: Intake, Oral Amount 100 / 340 240 / 240 Intake, Total IV Amount 1050 / 1200 100 / 1200 1050 / 1050 Lactated Ringers 1000ML 1,000 1000 / 1000 ml @ 100 mls/hr IV .Q10H [facility] Rx #:[id number] Lactated Ringers 1000ML 1,000 1000 / 1000 ml @ 999 mls/hr IV .Q1H1M [facility] Rx#:[id number] Pipercillin/Tazo 3.375 gm In 0. 50 / 200 100 / 200 50 / 50 9 % Sodium Chloride 50 ml @ 100 mls/hr IV Q6H [facility] Rx#:[id number] Output: Output, Urine Amount 650 / 950 0 / 0 Other: Number of Unmeasured Voids 1 Number of Bowel Movements 1 Weight 50.8 kg 54.204 kg Patient Weight 03/23/25 23:59 Weight 54.204 kg Laboratory Results - last 24 hr 03/20/25 13:12: POC Glucose 451 H* 03/22/25 11:55: Sodium 143, Potassium 3.9, Chloride 112 H, Carbon Dioxide 21 L, Anion Gap 13.9, BUN 19, Creatinine 0.80, Estimated Creat Clear 101, Estimated GFR 118, Est GFR ( Amer) 143, Glucose 222 H, Calcium 8.7 03/22/25 19:52: POC Glucose 168 H 03/23/25 05:50: POC Glucose 166 H 03/23/25 05:59: WBC 9.2 D, RBC 4.20 L, Hgb 12.1 L, Hct 36.3 L, MCV 86.4, MCH 28.8, MCHC 33.3, RDW 12.3, Plt Count 216, MPV 8.4, Neut % (Auto) 74.3, Lymph % (Auto) 16.5, [place] % (Auto) 8.3, Eos % (Auto) 0.1, Baso % (Auto) 0.3, Neut # (Auto) 6.9, Lymph # (Auto) 1.5, [place] # (Auto) 0.8, Eos # (Auto) 0.0, Baso # (Auto) 0.0, Sodium 145, Potassium 3.4 L, Chloride 108 H, Carbon Dioxide 29, Anion Gap 11.4, BUN 21 H, Creatinine 0.90, Estimated Creat Clear 96, Estimated GFR 103, Est GFR ( Amer) 124, Glucose 161 H D, Calcium 8.4, Magnesium 1.8, Total Bilirubin 0.9, AST 37, ALT 22, Alkaline Phosphatase 52, Total Protein 5.9 L, Albumin 3.8 D, Globulin 2.1, Albumin/Globulin Ratio 1.8 I & O for Labs for Last 24 Hours: Intake & Output 03/20/25 03/21/25 03/22/25 03/23/25 23:59 23:59 23:59 23:59 Intake Total 4626.084 / 4626.084 3753.930 / 3753.930 1300 / 1540 1290 / 1290 Output Total 400 / 500 1325 / 1325 950 / 950 0 / 0 Balance 4226.084 / 4126.084 2428.930 / 2428.930 350 / 590 1290 / 1290 Weight 51.313 kg 51.619 kg 50.8 kg 54.204 kg Microbiology Reports for the Last 24 Hours: Microbiology 03/20/25 16:50 Blood Blood Culture - Preliminary NO GROWTH AFTER 48 HOURS 03/20/25 16:45 Blood Blood Culture - Preliminary NO GROWTH AFTER 48 HOURS The patient's infection will respond to the chosen ABx?: Yes (SUSPECTED COLITIS, BLOOD CX NO GROWTH AT 24 HR) Is the patient receiving the right drug, dose, and route?: Yes Could a more targeted ABx be ordered?: No How long ABx needed (days)?: 5
[2025-03-23 08:00] VITALS: BP 129/53; PULSE 60; RESP 17; TEMP 36.8; O2SAT 99
[2025-03-23] MEDS: PANTOPRAZOLE 40MG VIAL 40 MG IV (08:59)
[2025-03-23] MEDS: SODIUM CHLORIDE 0.9% 10ML VIAL 10 ML IV (08:59)
[2025-03-23] MEDS: POTASSIUM CHLORIDE 20MEQ TAB 40 MEQ PO ×2 (11:09→14:54)
[2025-03-23 11:28] LABS: POC Glucose,Bedside 158 gm/dL (70-110)
--- NOTE | 2025-03-23 13:15 | P.PN_ITS ---
Subjective *Date: 03/23/25 *Time: 13:15 Interval history: Did not eat dinner last night per his report. Poor p.o. intake in the past 24 hours. Nausea this morning. Gap remains closed. Stable on room air. Encourage diet advancement this morning. Afebrile Medical Exam Vital signs and Labs for Last 24 Hours: Vital Signs Temp Pulse Pulse Resp BP BP Pulse Ox 03/23/25 13:00 03/23/25 10:46 03/23/25 08:00 03/23/25 08:00 98.2 F 60 17 129/53 L 99 03/23/25 07:33 03/23/25 06:27 03/23/25 05:00 03/23/25 04:00 98.1 F 60 16 130/68 100 03/23/25 03:00 03/23/25 01:00 03/23/25 00:00 98.4 F 52 L 16 111/55 L 95 03/22/25 23:00 03/22/25 21:00 03/22/25 20:00 03/22/25 20:00 99.8 F H 53 L 16 117/63 100 03/22/25 17:55 03/22/25 17:00 03/22/25 16:00 110 H 03/22/25 16:00 97.9 F 64 16 110/81 97 03/22/25 15:00 03/22/25 14:39 53 L 13 79/56 L 97 O2 Del Method 03/23/25 13:00 Room Air 03/23/25 10:46 Room Air 03/23/25 08:00 Room Air 03/23/25 08:00 Room Air 03/23/25 07:33 Room Air 03/23/25 06:27 Room Air 03/23/25 05:00 Room Air 03/23/25 04:00 Room Air 03/23/25 03:00 Room Air 03/23/25 01:00 Room Air 03/23/25 00:00 Room Air 03/22/25 23:00 Room Air 03/22/25 21:00 Room Air 03/22/25 20:00 Room Air 03/22/25 20:00 Room Air 03/22/25 17:55 Room Air 03/22/25 17:00 Room Air 03/22/25 16:00 03/22/25 16:00 Room Air 03/22/25 15:00 Room Air 03/22/25 14:39 Room Air Intake and Output 03/22/25 03/23/25 03/23/25 23:59 07:59 15:59 Intake Total 100 / 1540 1290 / 2101.667 811.667 / 2101.667 Output Total 0 / 0 Balance 100 / 590 1290 / 2101.667 811.667 / 2101.667 Intake: Intake, Oral Amount 240 / 240 Intake, Total IV Amount 100 / 1200 1050 / 1861.667 811.667 / 1861.667 Lactated Ringers 1000ML 1,000 1000 / 1761.667 761.667 / 1761.667 ml @ 100 mls/hr IV .Q10H [facility] Rx #:[id number] Pipercillin/Tazo 3.375 gm In 0. 100 / 200 50 / 100 50 / 100 9 % Sodium Chloride 50 ml @ 100 mls/hr IV Q6H [facility] Rx#:[id number] Output: Output, Urine Amount 0 / 0 Other: Number of Unmeasured Voids 1 Number of Bowel Movements 1 Weight 50.8 kg 54.204 kg Patient Weight 03/23/25 23:59 Weight 54.204 kg Laboratory Results - last 24 hr 03/22/25 19:52: POC Glucose 168 H 03/23/25 05:50: POC Glucose 166 H 03/23/25 05:59: WBC 9.2 D, RBC 4.20 L, Hgb 12.1 L, Hct 36.3 L, MCV 86.4, MCH 28.8, MCHC 33.3, RDW 12.3, Plt Count 216, MPV 8.4, Neut % (Auto) 74.3, Lymph % (Auto) 16.5, [place] % (Auto) 8.3, Eos % (Auto) 0.1, Baso % (Auto) 0.3, Neut # (Auto) 6.9, Lymph # (Auto) 1.5, [place] # (Auto) 0.8, Eos # (Auto) 0.0, Baso # (Auto) 0.0, Sodium 145, Potassium 3.4 L, Chloride 108 H, Carbon Dioxide 29, Anion Gap 11.4, BUN 21 H, Creatinine 0.90, Estimated Creat Clear 96, Estimated GFR 103, Est GFR ( Amer) 124, Glucose 161 H D, Calcium 8.4, Magnesium 1.8, Total Bilirubin 0.9, AST 37, ALT 22, Alkaline Phosphatase 52, Total Protein 5.9 L, Albumin 3.8 D, Globulin 2.1, Albumin/Globulin Ratio 1.8 03/23/25 11:19: POC Glucose 158 H I & O for Labs for Last 24 Hours: Intake & Output 03/20/25 03/21/25 03/22/25 03/23/25 23:59 23:59 23:59 23:59 Intake Total 4626.084 / 4626.084 3753.930 / 3753.930 1300 / 1540 2101.667 / 21 01.667 Output Total 400 / 500 1325 / 1325 950 / 950 0 / 0 Balance 4226.084 / 4126.084 2428.930 / 2428.930 350 / 590 2101.667 / 2101.667 Weight 51.313 kg 51.619 kg 50.8 kg 54.204 kg Microbiology Reports for the Last 24 Hours: Microbiology 03/20/25 16:50 Blood Blood Culture - Preliminary NO GROWTH AFTER 48 HOURS 03/20/25 16:45 Blood Blood Culture - Preliminary NO GROWTH AFTER 48 HOURS Constitutional: Present mild distress, thin and chronically ill appearing Head: Present atraumatic and normocephalic ENT: Present normal exam Neck: Present normal inspection Respiratory: Present normal respiratory effort; Absent rhonchi, wheezes or crackles Cardiac: Present Reg Rate and Rhythm GI: Present soft, tenderness (Mild, nonfocal) and normal bowel sounds; Absent distention, guarding or rebound Extremities: Present normal inspection and full ROM Skin: Present intact; Absent erythema Neuro: Present Grossly Intact, alert, awake, oriented x 3 and moves all extremities Assessment and Plan *Assessment and plan (1) Intractable nausea and vomiting: Status: Acute Category: Medical Code(s): R11.2 - Nausea with vomiting, unspecified (2) Colitis: Status: Acute Category: Medical Code(s): K52.9 - Noninfective gastroenteritis and colitis, unspecified (3) Diabetes mellitus type 1: Status: Acute Qualifiers: Diabetes mellitus complication status: with other specified complication Qualified Code(s): E10.69 - Type 1 diabetes mellitus with other specified complication Category: Medical Code(s): E10.9 - Type 1 diabetes mellitus without complications (4) DKA (diabetic ketoacidosis): Status: Resolved Qualifiers: Diabetes mellitus type: type 1 Diabetes mellitus complication detail: without coma Qualified Code(s): E10.10 - Type 1 diabetes mellitus with ketoacidosis without coma Category: Medical Code(s): E11.10 - Type 2 diabetes mellitus with ketoacidosis without coma Plan Barry Ratliff is a 24-year-old male with a medical significant for type 1 diabetes on insulin pump, cannabanoid hyperemesis syndrome, gastroparesis, medical nonadherence presents with intractable nausea/vomiting. Patient is not very talkative this time, looks very weak. He states his glucose monitor stopped working a few days ago, and he has not been checking his blood sugars with fingerstick glucometer. Therefore, he has not been giving his bolus insulin with his insulin pump. Endorses abdominal cramping, but otherwise denies chest pain, shortness of breath, fever/chills. Workup in the ED significant for WBC 30.2, AGAP 34, blood glucose 465, VBG pH 7.33 but bicarb of 13, UDS positive for THC, CT abdomen/pelvis suggestive of colitis and esophagitis. Given these findings, ED provider discussed case with me and I decided to admit patient for DKA. #Diabetic ketoacidosis, resolved, present on admission #Type 1 diabetes, chronic #Cannabinoid hyperemesis syndrome, recurrent #Gastroparesis, chronic ? Presented with intractable nausea/vomiting, states his freestyle tomasz monitor has stopped working a few days ago and has not been checking his blood sugar with fingerstick glucometer. Has not been giving his insulin boluses with insulin pump. ? Initial WBC 30.2, AGAP 34, blood glucose 465, VBG pH 7.33 but bicarb of 13 meeting criteria for DKA. -Remains closed for 24 hours. Gap this morning of 10. White count normalized at 9.2. Potassium 3.4, magnesium 1.8. Replacing per protocol. - On insulin pump, morning glucose 161. Tolerating well. Basal rate of total 16 units daily. Will give lispro boluses based on SSI with meals. Freestyle tomasz is functional. ? continues to have nausea/vomiting possibly from cannabinoid hyperemesis syndrome and underlying colitis. High risk of decompensation, and flipping back into DKA. -Discontinue IV fluids. Repeat CBC, CMP, magnesium ordered for the morning -Continue Reglan 10 mg IV ACHS scheduled #Colitis - Seen on CT abdomen/pelvis. Continue Zosyn 3.375 g every 6 hours. White blood count normalized to 9.2. Will discontinue after 5 days of antibiotics. Stop date ordered for the morning. #GERD #Esophagitis ? Continues to have epigastric pain, nausea/vomiting. Continue pantoprazole 40 mg IV twice daily. Full code DVT prophylaxis: Lovenox 40 mg Regular diet
[2025-03-23 16:02] LABS: POC Glucose,Bedside 149 gm/dL (70-110)
--- NOTE | 2025-03-23 16:46 | EXP.DC.SUM ---
General Admission date:: 03/20/25 Discharge date: 03/23/25 HPI HPI HPI: Barry Ratliff is a 24-year-old male with a medical significant for type 1 diabetes on insulin pump, cannabanoid hyperemesis syndrome, gastroparesis, medical nonadherence presents with intractable nausea/vomiting. Patient is not very talkative this time, looks very weak. He states his glucose monitor stopped working a few days ago, and he has not been checking his blood sugars with fingerstick glucometer. Therefore, he has not been giving his bolus insulin with his insulin pump. Endorses abdominal cramping, but otherwise denies chest pain, shortness of breath, fever/chills. Workup in the ED significant for WBC 30.2, AGAP 34, blood glucose 465, VBG pH 7.33 but bicarb of 13, UDS positive for THC, CT abdomen/pelvis suggestive of colitis and esophagitis. Given these findings, ED provider discussed case with me and I decided to admit patient for DKA. Hospital Course Hospital Course Hospital Course: Barry Joe is a 24-year-old male with a medical significant for type 1 diabetes on insulin pump, cannabanoid hyperemesis syndrome, gastroparesis, medical nonadherence presents with intractable nausea/vomiting. Patient is not very talkative this time, looks very weak. He states his glucose monitor stopped working a few days ago, and he has not been checking his blood sugars with fingerstick glucometer. Therefore, he has not been giving his bolus insulin with his insulin pump. Endorses abdominal cramping, but otherwise denies chest pain, shortness of breath, fever/chills. Workup in the ED significant for WBC 30.2, AGAP 34, blood glucose 465, VBG pH 7.33 but bicarb of 13, UDS positive for THC, CT abdomen/pelvis suggestive of colitis and esophagitis. Given these findings, ED provider discussed case with me and I decided to admit patient for DKA. DKA resolved with DKA protocol and insulin drip. Able to advance diet and tolerate p.o. intake. Completed empiric course of antibiotics. Cultures remain negative. Stable discharge home with no further antibiotics. Runs addressed as follows: #Diabetic ketoacidosis, resolved, present on admission #Type 1 diabetes, chronic #Cannabinoid hyperemesis syndrome, recurrent #Gastroparesis, chronic ? Presented with intractable nausea/vomiting, states his freestyle poli monitor has stopped working a few days ago and has not been checking his blood sugar with fingerstick glucometer. Has not been giving his insulin boluses with insulin pump. Initial WBC 30.2, AGAP 34, blood glucose 465, VBG pH 7.33 but bicarb of 13 meeting criteria for DKA. Initiated on DKA protocol, had closure of anion gap over 24 hours. Remained closed. Able to resume patient's insulin pump. Tolerating pump with bolus doses as needed based on fingersticks. Freestyle poli was replaced and found to be functional. Diet gradually advanced based on patient's tolerance. Will continue Reglan 5 to 10 mg ACHS at discharge. Given his clinical improvement and tolerance of p.o. intake, stable to discharge home. #Colitis - Seen on CT abdomen/pelvis. Initiated on Zosyn 3.375 g every 6 hours. White blood cell count severely elevated on presentation at 30, improved to 9.2 by day of discharge. No other signs of infection. Cultures negative. Completed 4 days of antibiotics. No indication to continue any further at discharge. #GERD #Esophagitis ?Longstanding. Had intermittent epigastric pain. Resolved/improved by day of discharge. Will continue home PPI at discharge. Total time spent on discharge 38 minutes in counseling, documentation, chart review, and direct care with patient. Exam Data for Last 24 hours Vital signs and Labs for Last 24 Hours: Temp Pulse Resp BP Pulse Ox O2 Del Method 98.2 F 60 17 129/53 L 99 Room Air 03/23/25 08:00 03/23/25 08:00 03/23/25 08:00 03/23/25 08:00 03/23/25 08:00 03/23/25 14:33 Laboratory Results - last 24 hr 03/22/25 19:52: POC Glucose 168 H 03/23/25 05:50: POC Glucose 166 H 03/23/25 05:59: WBC 9.2 D, RBC 4.20 L, Hgb 12.1 L, Hct 36.3 L, MCV 86.4, MCH 28.8, MCHC 33.3, RDW 12.3, Plt Count 216, MPV 8.4, Neut % (Auto) 74.3, Lymph % (Auto) 16.5, [place] % (Auto) 8.3, Eos % (Auto) 0.1, Baso % (Auto) 0.3, Neut # (Auto) 6.9, Lymph # (Auto) 1.5, [place] # (Auto) 0.8, Eos # (Auto) 0.0, Baso # (Auto) 0.0, Sodium 145, Potassium 3.4 L, Chloride 108 H, Carbon Dioxide 29, Anion Gap 11.4, BUN 21 H, Creatinine 0.90, Estimated Creat Clear 96, Estimated GFR 103, Est GFR ( Amer) 124, Glucose 161 H D, Calcium 8.4, Magnesium 1.8, Total Bilirubin 0.9, AST 37, ALT 22, Alkaline Phosphatase 52, Total Protein 5.9 L, Albumin 3.8 D, Globulin 2.1, Albumin/Globulin Ratio 1.8 03/23/25 11:19: POC Glucose 158 H 03/23/25 15:55: POC Glucose 149 H I & O for Last 24 hours: Intake & Output 03/20/25 03/21/25 03/22/25 03/23/25 23:59 23:59 23:59 23:59 Intake Total 4626.084 / 4626.084 3753.930 / 3753.930 1300 / 1540 2561.667 / 2561.667 Output Total 400 / 500 1325 / 1325 950 / 950 0 / 0 Balance 4226.084 / 4126.084 2428.930 / 2428.930 350 / 590 2561.667 / 2561.667 Weight 51.313 kg 51.619 kg 50.8 kg 54.204 kg Microbiology Reports for the Last 24 Hours: Microbiology 03/20/25 16:50 Blood Blood Culture - Preliminary NO GROWTH AFTER 48 HOURS 03/20/25 16:45 Blood Blood Culture - Preliminary NO GROWTH AFTER 48 HOURS Constitutional Constitutional: no acute distress, thin, chronically ill appearing and cooperative *Routine HEENT Exam Head: Present normocephalic Eye: Present EOMI and PERRL ENT: Present mucous membranes moist *Routine Neck Exam Neck: Present supple; Absent lymphadenopathy *Routine Respiratory Exam Respiratory: Present CTA bilaterally; Absent rhonchi, wheezes or crackles *Routine Cardiovascular Exam Cardiovascular: Present RRR *Routine Abdominal Exam Abdominal: Present soft and normoactive bowel sounds; Absent tenderness or distended *Routine Rectal Exam Patient deferred: visual exam *Routine Exam Patient deferred: penile exam *Routine Extremities Exam Extremities: Absent cyanosis, clubbing or edema *Routine Skin Exam Skin: Present warm; Absent rash *Routine Neurological Exam Neurological: Present alert, oriented X3 and moving all extremities; Absent altered mental status Routine Psychiatric Exam Psychiatric: Present normal affect; Absent good insight or good judgment Results Data Completed and Pending Labs on day of discharge: Labs from last 24 hours 03/23/25 03/23/25 03/23/25 15:55 11:19 05:59 WBC 9.2 D RBC 4.20 L Hgb 12.1 L Hct 36.3 L MCV 86.4 MCH 28.8 MCHC 33.3 RDW 12.3 Plt Count 216 MPV 8.4 Neut % (Auto) 74.3 Lymph % (Auto) 16.5 [place] % (Auto) 8.3 Eos % (Auto) 0.1 Baso % (Auto) 0.3 Neut # (Auto) 6.9 Lymph # (Auto) 1.5 [place] # (Auto) 0.8 Eos # (Auto) 0.0 Baso # (Auto) 0.0 Sodium 145 Potassium 3.4 L Chloride 108 H Carbon Dioxide 29 Anion Gap 11.4 BUN 21 H Creatinine 0.90 Estimated Creat Clear 96 Estimated GFR 103 Est GFR ( Amer) 124 Glucose 161 H D POC Glucose 149 H 158 H Calcium 8.4 Magnesium 1.8 Total Bilirubin 0.9 AST 37 ALT 22 Alkaline Phosphatase 52 Total Protein 5.9 L Albumin 3.8 D Globulin 2.1 Albumin/Globulin Ratio 1.8 03/23/25 03/22/25 05:50 19:52 WBC RBC Hgb Hct MCV MCH MCHC RDW Plt Count MPV Neut % (Auto) Lymph % (Auto) [place] % (Auto) Eos % (Auto) Baso % (Auto) Neut # (Auto) Lymph # (Auto) [place] # (Auto) Eos # (Auto) Baso # (Auto) Sodium Potassium Chloride Carbon Dioxide Anion Gap BUN Creatinine Estimated Creat Clear Estimated GFR Est GFR ( Amer) Glucose POC Glucose 166 H 168 H Calcium Magnesium Total Bilirubin AST ALT Alkaline Phosphatase Total Protein Albumin Globulin Albumin/Globulin Ratio Preliminary micro results at discharge 03/20/25 16:50 Blood Culture - Preliminary Blood NO GROWTH AFTER 48 HOURS 03/20/25 16:45 Blood Culture - Preliminary Blood NO GROWTH AFTER 48 HOURS DS: Diagnosis Discharge Diagnosis (1) Intractable nausea and vomiting: Status: Acute Code(s): R11.2 - Nausea with vomiting, unspecified (2) Colitis: Status: Acute Code(s): K52.9 - Noninfective gastroenteritis and colitis, unspecified (3) Diabetes mellitus type 1: Status: Acute Code(s): E10.9 - Type 1 diabetes mellitus without complications Qualifiers: Diabetes mellitus complication status: with other specified complication Qualified Code(s): E10.69 - Type 1 diabetes mellitus with other specified complication (4) DKA (diabetic ketoacidosis): Status: Resolved Code(s): E11.10 - Type 2 diabetes mellitus with ketoacidosis without coma Qualifiers: Diabetes mellitus complication detail: without coma Diabetes mellitus type: type 1 Qualified Code(s): E10.10 - Type 1 diabetes mellitus with ketoacidosis without coma Meds Home Medications and Allergies Home Medications ?Medication ?Instructions ?Recorded ?Confirmed ?Type blood-glucose sensor (FreeStyle #1 ea 08/18/24 02/24/25 Rx Poli 3 Sensor device) pen needle, diabetic 32 gauge x #1,200 ea 10/23/24 02/24/25 Rx 5/32 insulin lispro 200 unit/mL (3 mL) 10 - 15 unit SQ AC 02/15/25 03/20/25 History subcutaneous pen (Humalog KwikPen U-200 Insulin) metoclopramide HCl 5 mg tablet 5 - 10 mg (1 - 2 x 5 mg) PO ACHS 02/17/25 03/20/25 Rx (Reglan) 30 days #180 tabs pantoprazole 40 mg tablet,delayed 40 mg PO DAILY #30 tabs 02/17/25 03/20/25 Rx release insulin lispro 100 unit/mL 0 unit continuous subcutaneous 03/22/25 03/22/25 History subcutaneous solution infusion CONT New Prescriptions to Start Prescriptions: Allergies Allergy/AdvReac Type Severity Reaction Status Date / Time No Known Allergies Allergy Verified 02/24/25 11:07 Discharge Plan Disposition Patient Disposition: Home, Self-Care Condition: Fair Discharge Order Discharge Orders: Discharge Order (Routine); Ordered 03/23/25 Ordered By: Harshil Schultz Follow up Plan Follow up with: Gretchen Angelo APRN [Primary Care Provider, Family Practice] - Enter time for follow up Prescriptions/Medication Reconciliation: Continued (DME) FreeStyle Poli 3 Sensor Device See Rx Instructions .Route Qty: 1 11RF Rx Instructions: As directed (DME) pen needle, diabetic 32 gauge x 5/32 needle See Rx Instructions .ROUTE .MEDSUPPLY Qty: 1200 1RF Rx Instructions: As directed Humalog KwikPen Insulin 200 unit/mL (3 mL) insulin pen 10 - 15 unit SQ AC Patient Comments: ADMINISTER 10 TO 15 UNITS SUBCUTANEOUSLY 3 TIMES A DAY BEFORE A MEAL PER SLIDING SCALE Rx Instructions: ADMINISTER 10 TO 15 UNITS SUBCUTANEOUSLY 3 TIMES A DAY BEFORE A MEAL PER SLIDING SCALE metoclopramide HCl [Reglan] 5 mg tablet 5 - 10 mg PO ACHS 30 Days Qty: 180 0RF pantoprazole 40 mg tablet,delayed release (DR/EC) 40 mg PO DAILY Qty: 30 0RF insulin lispro 100 unit/mL solution 0 unit continuous subcutaneous infusion CONT Problem Reconciliation Problems Reviewed?: Yes Patient Discharge Instructions ACTIVITY: Continue current activity DIET: continue same diet Print Language: St Helenian Providers Primary Care Provider: Gretchen Angelo Admit Provider: Prasanth Guzman Attending Provider: Prasanth Guzman
--- NOTE | 2025-03-23 17:00 | PC.NURSE ---
pt has tolerated po intake this shift (1/2 of a hamburger and a slushie). ambulated in the room and sat up in the chair for most of the shift. medicated for nausea this morning. no vomiting or diarrhea this shift.
[2025-03-24 06:19] LABS: POC Glucose,Bedside 187 gm/dL (70-110)
[2025-03-24 06:19] LABS: POC Glucose,Bedside 182 gm/dL (70-110)
[2025-03-24 06:19] LABS: POC Glucose,Bedside 165 gm/dL (70-110)
[2025-03-24 06:19] LABS: POC Glucose,Bedside 145 gm/dL (70-110)
[2025-03-24 06:19] LABS: POC Glucose,Bedside 128 gm/dL (70-110)
[2025-03-24 06:19] LABS: POC Glucose,Bedside 194 gm/dL (70-110)
[2025-03-24 06:19] LABS: POC Glucose,Bedside 192 gm/dL (70-110)
[2025-03-24 06:19] LABS: POC Glucose,Bedside 147 gm/dL (70-110)
[2025-03-24 06:19] LABS: POC Glucose,Bedside 212 gm/dL (70-110)
[2025-03-24 06:19] LABS: POC Glucose,Bedside 205 gm/dL (70-110)
[2025-03-24 06:19] LABS: POC Glucose,Bedside 201 gm/dL (70-110)
[2025-03-24 06:19] LABS: POC Glucose,Bedside 145 gm/dL (70-110)
[2025-03-24 06:19] LABS: POC Glucose,Bedside 194 gm/dL (70-110)
[2025-03-24 06:19] LABS: POC Glucose,Bedside 216 gm/dL (70-110)
[2025-03-24 06:19] LABS: POC Glucose,Bedside 203 gm/dL (70-110)
[2025-03-24 06:19] LABS: POC Glucose,Bedside 163 gm/dL (70-110)
[2025-03-24 06:19] LABS: POC Glucose,Bedside 224 gm/dL (70-110)
[2025-03-24 06:19] LABS: POC Glucose,Bedside 155 gm/dL (70-110)
[2025-03-24 06:19] LABS: POC Glucose,Bedside 208 gm/dL (70-110)
[2025-03-24 06:19] LABS: POC Glucose,Bedside 171 gm/dL (70-110)
[2025-03-24 06:19] LABS: POC Glucose,Bedside 159 gm/dL (70-110)
[2025-03-24 06:19] LABS: POC Glucose,Bedside 252 gm/dL (70-110)
[2025-03-24 06:19] LABS: POC Glucose,Bedside 181 gm/dL (70-110)
[2025-03-24 06:19] LABS: POC Glucose,Bedside 172 gm/dL (70-110)
[2025-03-24 06:19] LABS: POC Glucose,Bedside 166 gm/dL (70-110)
[2025-03-24 06:19] LABS: POC Glucose,Bedside 205 gm/dL (70-110)
[2025-03-24 06:19] LABS: POC Glucose,Bedside 175 gm/dL (70-110)
[2025-03-24 06:19] LABS: POC Glucose,Bedside 211 gm/dL (70-110)
[2025-03-24 06:19] LABS: POC Glucose,Bedside 187 gm/dL (70-110)
[2025-03-24 06:19] LABS: POC Glucose,Bedside 180 gm/dL (70-110)
[2025-03-24 06:19] LABS: POC Glucose,Bedside 197 gm/dL (70-110)
[2025-03-24 06:19] LABS: POC Glucose,Bedside 160 gm/dL (70-110)
[2025-03-24 06:19] LABS: POC Glucose,Bedside 182 gm/dL (70-110)
--- NOTE | 2025-03-25 10:03 | SW/DCPLANNER ---
Spoke with patient on the phone. Patient stated that he is doing good. Patient stated that he hasnt called to schedule an appointment with his PCP but plans on doing that today. Patient stated that they did not change his medicine or give him any new. Patient stated that he has no concerns or questions at this time. Geneva Larkin
== END 2025-03-23 17:05 | disposition home or self-care (01) | DRG 639 ==
LOC: ER 17:02 → ICU 17:15 → 2ND 03-22 17:16
PROVIDERS: Admitting Provider Student in an Organized Health Care Education/Training Program; Emergency Provider Student in an Organized Health Care Education/Training Program; PCP Nurse Practitioner; Visit Provider Student in an Organized Health Care Education/Training Program
DX: E10.10 Type 1 diabetes mellitus with ketoacidosis without coma (principal); E10.43 Type 1 diabetes mellitus with diabetic autonomic (poly)neuropathy; K31.84 Gastroparesis; K52.9 Noninfective gastroenteritis and colitis, unspecified; K21.00 Gastro-esophageal reflux disease with esophagitis, without bleeding; E86.0 Dehydration; F17.290 Nicotine dependence, other tobacco product, uncomplicated; T38.3X6A Underdosing of insulin and oral hypoglycemic [antidiabetic] drugs, initial encounter; F12.90 Cannabis use, unspecified, uncomplicated; R11.2 Nausea with vomiting, unspecified; Z91.148 Patient's other noncompliance with medication regimen for other reason; Z96.41 Presence of insulin pump (external) (internal); Z79.4 Long term (current) use of insulin; Z79.899 Other long term (current) drug therapy
CPT/HCPCS: 0223U; 36415; 74177; 80048; 80053; 80307; 81001; 82009; 82803; 82962; 83036; 83605; 83690; 83735; 84100; 84443; 85007; 85025; 87040; 93005; 99285; J1200; J1650; J1790; J2405; J2470; J2543; J2765; J3480; J7050; J7120; Q9967

== ENCOUNTER 2025-07-11 16:08 | Inpatient (IN) | payer OTHER, SELFPAY ==
--- OUTSIDE RECORDS SUMMARY | 2004-02-14 23:00 | XMS_ITS | Encounter Summary ---
Author Organization [facility] Address [address] [place] [id number] Care Team Providers Care Health Informatics Advisor Name Role Phone Unavailable Primary Care Provider Unavailabl e Encounter Details Date Type Department Care Team (Late st Contact Info) Description 02/15/2004 Hospital Encounter [facility] Division of Pediatric Surgery [address] [place] [phone] Social History Tobacco Use Types Packs/Day Years Used Date Smoking Tobacco: Never Assessed Sex and Gender Information Value Date Recorded Sex Assigned at Not on file Legal Sex Male 5:13 AM EST Gender Identity Not on file Sexual Orientation Not on file documented as of this encounter Plan of Treatment Not on file documented as of this encounter Visit Diagnoses Not on filedocumented in this encounter
--- OUTSIDE RECORDS SUMMARY | 2004-02-14 23:00 | XMS_ITS | Encounter Summary ---
Author Organization [facility] Address [address] [place] [address] Care Team Providers Care Community Health Navigator Name Role Phone Unavailable Primary Care Provider Unavailabl e Encounter Details Date Type Department Care Team (Late st Contact Info) Description 02/15/2004 Hospital Encounter [facility] Division of Pediatric Surgery [address] [place] [phone] Social History Tobacco Use Types Packs/Day [...]
[2025-07-11] VITALS (14 sets, daily range): BP systolic 83–131; BP diastolic 40–96; PULSE 58–87; RESP 16–18; TEMP 36.6–36.9; O2SAT 92–100; BMI 21.9; BMI 19.4
--- OUTSIDE RECORDS SUMMARY | 2025-07-11 16:17 | XMS_ITS | Clinical Summary ---
Author Organization [facility] lin Address [address] [facility] [place] [address] Care Team Providers Care Scow Derrick Operator Name Role Phone Unavailable Primary Care Provider Unavailabl e Social History Tobacco Use Types Packs/Day Years Used Date Smoking Tobacco: Never Assessed Sex and Gender Information Value Date Recorded Sex Assigned at Not on file Legal Sex Male 9:32 AM EST Gender Identity Not on file Sexual Orientation Not on file Plan of Treatment Not on file Medical Devices Not on file Insurance [facility]
--- OUTSIDE RECORDS SUMMARY | 2025-07-11 16:17 | XMS_ITS | Clinical Summary ---
Author Organization [facility] Address [address] [place] [id number] Care Team Providers Care Website/Blog Editor Name Role Phone Unavailable Primary Care Provider Unavailabl e Source Comments [facility] is fully rolled out with thefollowing exceptions:General Clinical Research [facility] Social History Tobacco Use Types Packs/Day [...] 12/19/2000 DTAP/Tdap/Td IMMUNIZATION (1 - Tdap) 12/19/2006 Yearly Physical Ages 3-18+ 12/19/2010 VARICELLA IMMUNIZATION (1 of 2 - 13+ 2-dose series) 12/19/2012 HPV IMMUNIZATION (1 - Male 3 -dose series) 12/19/2014 HEPATITIS B IMMUNIZATION (1 of 3 - 19+ 3-dose series) 12/19/2018 AMB SEASONAL FLU VACCINE (#1) 03/16/2025 COVID-19 Vaccine ( - 2024-2 6 season) 2025 HIB IMMUNIZATION Aged Out No longer e [...]
--- OUTSIDE RECORDS SUMMARY | 2025-07-11 16:17 | XMS_ITS | Encounter Summary ---
Author Organization [facility] Address [facility] [place] [address] Care Team Providers Care Fire Engine Operator Name Role Phone None, None Primary Care Provider Unavailabl e Mychart, Generic Provider Unavailable Shena Joe MD Unavailable [phone] Suellen Hurley NP Unavailable Unavailable Reason for Visit * Reason Comments Medications Refill Encounter Details Date Type Department Care Team (Late st Contact Info) Description 10/19/2020 [facility] [place] [address] [facility] [place] [address] [place] [address] Suellen Hurley NP Medications Refill Social History Tobacco Use Types [...] study documented in this encounter Care Teams Fire Engine Operator Relationship Specialty Start Date End Date None, None [address] [place] [address] PCP - General 04/11/19 Mychart, Generic Provider 09/01/20 Shena Lloyd MD [address] [place] [phone] Endocrinology/Diabetes/ Metabolism 12/30/20 Suellen Hurley NP [address] [place] [address] Nurse Practitioner Endocrinology/Diabetes/ Metabolism 03/29/21 documented as of this encounter
--- OUTSIDE RECORDS SUMMARY | 2025-07-11 16:17 | XMS_ITS | Clinical Summary ---
Author Organization [facility] Address [address] [place] [address] Care Team Providers Care Geriatric Aide Name Role Phone Gretchen Angelo APRN Primary Care Provider [phone] Allergies No known active allergies Medications glucose [...] PUMP 20 mL 2 03/19/20 25 Active Active Problems Problem Noted Date [...] A1c is so much better. Plan : jeremiah romero Assessment & Plan (08/21/2024 3:05 PM EST): [...] [facility] gastric [facility] Intractable nausea and vomiting 06/23/2023 Family History Medical History Relation Name Comments [...] drink = 0.6 oz pur e alcohol) [facility] Utilities Answer Date Recorded In the past 12 months has [employer], gas, oil, or water [employer] threatened to shut off services in your [...] care, and heating? Not very hard 08/15/2024 [facility] [place] of Occupat ional Health - Occupational Stress [...] GED or equivalent No 08/15/2024 Preferred Language Monegasque 08/15/2024 PHQ-2 Answer Date Recorded Patient Health Questionnaire-2 Score 0 08/15/2024 Sex and Gender Information Value Date Recorded Sex Assigned at Not on file Legal Sex Male 5:11 AM EST Gender Identity Not on file Sexual Orientation Not on file Last Filed Vital Signs Vital Sign Reading Time Taken Comments Blood Pressure 120/87 03/24/2025 8:02 PM EDT Pulse 60 03/24/2025 8:02 PM EDT Temperature 37 C (98.6 F) 03/24/2025 8:02 PM EDT Respiratory Rate 18 03/24/2025 8:02 PM EDT Oxygen Saturation 98% 03/24/2025 8:02 PM EDT Inhaled Oxygen Concentration - - Weight 54.4 kg (120 lb) 03/24/2025 8:02 PM EDT Height 170.2 cm (5' 7 ) 03/24/2025 8:02 PM EDT Body Mass Index 18.79 03/24/2025 8:02 PM EDT Plan of Treatment Upcoming Encounters Date Type Department Care Team (Late st Contact Info) Description 09/07/2025 9:45 AM EST Office Visit [facility] ENDO[facility]OLOG[facility] [address] [phone] Pavan Cruz MD [address] [address] Health Maintenance Due Date Last Done Comments DIABETIC EYE EXAM 12/19/2009 Pneumococcal Vaccine 0-49 (1 of 2 - PCV) 12/19/2018 TDAP/TD VACCINES (2 - Td or Tdap) 02/14/2021 011 ANNUAL PHYSICAL 07/03/2023 HEPATITIS C SCREENING 07/03/2023 INFLUENZA VACCINE 02/13/2025 05/03/2022 HEMOGLOBIN A1C 09/06/2025 03/06/2025, 05/0 03/2025, 08/14/2024, Additional history exists DIABETIC FOOT EXAM 03/06/2026 03/06/2025, 03/06/2025 URINE MICROALBUMIN-CREATININ E RATIO (uACR) 03/07/2026 03/07/2025 Hepatitis B Completed 06/18/2000, 01/14, 1999 Procedures Procedure Name Priority Date/Time Associated Diagnosis Comments POCT GLYCOSYLATED HEMOGLOBIN (HGB A1C) Routine 03/06/2025 3:17 PM EDT Type 1 diabetes mellitus with hyperglycemia from Last 3 Months or Most Recently Relevant to Health Maintenance Results * (ABNORMAL) POC Glycosylated Hemoglobin (Hb A1C) (03/06/2025 3:17 PM EDT) Hemoglobin A1C 7.4(A) 4.5 - 5.7 % [facility] Lot Number [id number] [facility] Expiration Date 10/29/2026 [facility] Blood 03/06/2025 3:17 PM EDT Pavan Cruz MD POINT OF CARE TEST ORD ERABLES Final Result [facility]
[address] [place] [address], from Last 3 Months or Most Recently Relevant to Health Maintenance Insurance Advance Directives * CPR (Attempt to Resuscitate) [...] Of Support Discussed With: Patient Care Teams Geriatric Aide Relationship Specialty Start Date End Date Gretchen Angelo APRN [address] [place] [address] PCP - General Nurse Practitioner 06/25/23
--- OUTSIDE RECORDS SUMMARY | 2025-07-11 16:17 | XMS_ITS | Clinical Summary ---
Author Organization [facility] Address [address] [place] [address] Care Team Providers Care Land Surveyor Manager Name Role Phone None, None Primary Care Provider Unavailabl e Mychart, Generic Provider Unavailable Shena Joe MD Unavailable [phone] Suellen Hurley NP Unavailable Unavailable Allergies No known active allergies Medications Blood-Glucose Meter Misc Use 1 Each as instructed 4 times daily (before meals and at bedtime). 1 Each 04/14/2019 4:02 PM EDT 04/14/20 Active Insulin Garland, Disposable, 31 gauge x 5/16 NeedleIndications :Type 2 diabetes, uncontrolled, with neuropathy use with insulin pen 100 Each 3 05/28/20 19 Active Blood-Glucose Sensor (Dexcom G6 Sensor) DeviceIndications :Type 2 diabetes, uncontrolled, with neuropathy,Diabet es mellitus type 1, uncontrolled, without complications 1 Device by Does not apply route See instructions. Apply every 10 days. 3 Each 11 05/29/20 Active Additional Information Patient not taking.Reported on [...] to the patient, Quantity 2, Lot Number [id number], Expiration 03/2020 6 mL 1 07/10/20 19 [...] Additional history exists COVID-19 Vaccine (1 - 2024-2 6 season) 2025 Influenza Vaccination (#1) 2025 Lipid [...] EXTERNAL LAB Alb, Ur 1.30 mg/dL TC MECHANICAL ENERGY ENGINEER AL LAB Alb Creat Ratio 20 [...] Lloyd MD URINE ORDERABLES Final Res ult [facility] [address] * (ABNORMAL) RENAL PROFILE (12/30/2020 4:22 PM EDT) Sodium 137 135 - 146 mmol/L [facility] EXTERNAL LAB Potassium 4.7 3.5 - 5.1 mmol/L [facility] EXTERNAL LAB Chloride 103 98 - 110 [...] LAB Albumin 4.8 3.5 - 5.0 g/dL [facility] BUN/Creatinine Ratio 13 [facility] Serum (Serum) 12/30/2020 4:2 2 PM EDT 12/30/2020 7:02 PM EDT us Shena Lloyd MD CHEMISTRY ORDERABLES Final Result [facility] [address] * LIPID PROFILE (12/30/2020 4:22 PM [...] High HDL 59 40 - 180 mg/dL [facility] Comment: HDL CHOLESTEROL INTERPRETATION: Less than 40 mg/dL Low Greater than 60 mg/dL Desirable Triglycerides 101 0 - 150 mg/dL [facility] Comment: TOTAL TRIGLYCERIDE INTERPRETATION: Less than 150 mg/dL Normal 150-199 mg/dL Borderline HIgh 200-499 mg/dL High Greater or Equal to 500 mg/dL Very High Serum (Serum) 12/30/2020 4:2 2 PM EDT 12/30/2020 7:02 PM EDT Shena Lloyd MD CHEMISTRY ORDERABLES Final Result [facility] [address] * POCT AMB HEMOGLOBIN A1C (12/30/2020 3:54 PM EDT) Hgb A1C 8.3 % 12/30/2020 3:54 PM EDT Shena Lloyd MD AMB POINT OF CARE Final Re sult * AMB REFERRAL TO OPHTHALMOLOGY (04/25/2019) Historical Provider OUTPATIENT REFERRAL ORDERABL ES Final Result from Last 3 Months or Most Recently Relevant to Health Maintenance Insurance ANTHEM ANTHEM ANTHEM ANTHEM Advance Directives For more information, please contact: [phone] * Full Code (Latest Code Status on File) Date Activated Date Inactivated Comments 04/11/2019 6:39 PM 06/21/2023 10:47 AM No automate d chest compression devices for VAD Patients * Full Code Date Activated Date Inactivated Comments 04/11/2019 6:37 PM 04/11/2019 6:39 PM Care Teams Land Surveyor Manager Relationship Specialty Start Date End Date None, None [address] [place] [address] PCP - General 04/11/19 Mychart, Generic Provider 09/01/20 Shena Lloyd MD [address] [place] [phone] Endocrinology/Diabetes/ Metabolism 12/30/20 Suellen Hurley NP [address] [place] [address] Nurse Practitioner Endocrinology/Diabetes/ Metabolism 03/29/21
--- OUTSIDE RECORDS SUMMARY | 2025-07-11 16:17 | XMS_ITS | Encounter Summary ---
Author Organization [facility] Address [address] [place] [address] Care Team Providers Care Hot Stamp Operator Name Role Phone None, None Primary Care Provider Unavailabl e Mychart, Generic Provider Unavailable Shena Joe MD Unavailable [phone] Suellen Hurley NP Unavailable Unavailable Reason for Visit * Reason Onset Date Comments Other 02/13/2020 EYE EXAM Encounter Details Date Type Department Care Team (Late st Contact Info) Description 02/13/2020 Clinical Update [facility], [place] [address] [place] [address] Suellen Hurley NP Other (EYE EXAM) Social History Tobacco Use [...] on filedocumented in this encounter Care Teams Hot Stamp Operator Relationship Specialty Start Date End Date None, None [address] [facility] [place] [address] PCP - General 04/11/19 Mychart, Generic Provider 09/01/20 Shena Lloyd MD [address] [place] [phone] Endocrinology/Diabetes/ Metabolism 12/30/20 Suellen Hurley NP [address] [place] [address] Nurse Practitioner Endocrinology/Diabetes/ Metabolism 03/29/21 documented as of this encounter
--- OUTSIDE RECORDS SUMMARY | 2025-07-11 16:17 | XMS_ITS | Clinical Summary ---
Author Organization [facility] Address [address] [place] [address], [address] [place] [address] Care Team Providers Care Housing Counselor Name Role Phone Unavailable Primary Care Provider [...]
--- OUTSIDE RECORDS SUMMARY | 2025-07-11 16:17 | XMS_ITS | Clinical Summary ---
Author Organization [facility] Address [address] [place] [address] Phone Care Team Providers Care Hand Rug Cleaner Name Role Phone Unavailable Primary Care Provider [...] - 19+ 3-dose series) 12/19/2018 COVID-19 Vaccine (2024-2 6 season) 2025 Influenza Vaccine (#1) 2025 05/03/2022 Meningococcal B Vaccine Aged Out No l onger eligible based on patient's age to complete this topic Pneumococcal Vaccine 0-49 Aged Out No longer eligible based on patient's age to complete this topic
--- OUTSIDE RECORDS SUMMARY | 2025-07-11 16:17 | XMS_ITS | Encounter Summary ---
Author Organization [facility] Address [address] [place] [id number] Care Team Providers Care Sales Account Coordinator Name Role Phone None, None Primary Care Provider Unavailabl e Mychart, Generic Provider Unavailable Shena Joe MD Unavailable [phone] Suellen Hurley NP Unavailable Unavailable Reason for Visit * Reason Onset Date Comments Other 01/22/2020 [facility] fax Encounter Details Date Type Department Care Team (Late st Contact Info) Description 01/22/2020 Telephone [facility], [place] [address] [place] [address] Shena Lloyd MD [address] [place] [address] Other ([facility] fax) Social History Tobacco Use Types Packs/Day [...] 01/22/2020 6:55 AM EDT Rcvd fax from [facility] for SB to review and sign-placed in box documented in this encounter Plan of Treatment Not on file documented as of this encounter Visit Diagnoses Not on filedocumented in this encounter Care Teams Sales Account Coordinator Relationship Specialty Start Date End Date None, None [address] [place] [address] PCP - General 04/11/19 [place], Generic Provider 09/01/20 Shena Lloyd MD [address] [place] [phone] Endocrinology/Diabetes/ Metabolism 12/30/20 Suellen Hurley NP [address] [place] [address] Nurse Practitioner Endocrinology/Diabetes/ Metabolism 03/29/21 documented as of this encounter
--- OUTSIDE RECORDS SUMMARY | 2025-07-11 16:17 | XMS_ITS | Encounter Summary ---
Author Organization [facility] Address [address] [place] [address] Care Team Providers Care Books Salesperson Name Role Phone None, None Primary Care Provider Unavailabl e Mychart, Generic Provider Unavailable EarlinevaShena Arias MD Unavailable [phone] Suellen Hurley NP Unavailable Unavailable Reason for Visit * Reason Comments Medications Refill Encounter Details Date Type Department Care Team (Late st Contact Info) Description 04/12/2021 Refill [facility] [address] [facility] [place] [address] [place] [address] Suellen Hurley NP Medications Refill [...] study documented in this encounter Care Teams Books Salesperson Relationship Specialty Start Date End Date None, None [address] [place] [place] [address] PCP - General 04/11/19 Mychart, Generic Provider 09/01/20 Shena Lloyd MD [address] [place] [address] Endocrinology/Diabetes/ Metabolism 12/30/20 Suellen Hurley NP [address] [place] [address] Nurse Practitioner Endocrinology/Diabetes/ Metabolism 03/29/21 documented as of this encounter
--- OUTSIDE RECORDS SUMMARY | 2025-07-11 16:17 | XMS_ITS | Encounter Summary ---
Author Organization [facility] Address [address] [place] [address] Care Team Providers Care Urology Nurse Name Role Phone Gretchen Angelo APRN Primary Care Provider [phone] Encounter Details Date Type Department Care Team (Late st Contact Info) Description 03/09/2025 Results Follow-Up [facility] [address] [address] Pavan Cruz MD [facility] [employer] [place] [address] Social History Tobacco Use Types Packs/Day Years Used Date Smoking Tobacco: Never Passive Smoke Exposure: Never Smokeless Tobacco: Never Alcohol Use Standard Drinks/Week Comments Not Currently 1 (1 standard drink = 0.6 oz pur e alcohol) [facility] Utilities Answer Date Recorded In the past 12 months has [employer] gas, oil, or water [employer] threatened to shut off services in your [...] care, and heating? Not very hard 08/15/2024 [employer] [place] [facility] - Occupational Stress [...] GED or equivalent No 08/15/2024 Preferred Language Anguillan 08/15/2024 PHQ-2 Answer Date Recorded Patient Health [...] 9:45 AM EST Office Visit [facility] [address] [phone] Pavan Cruz MD [address] [employer] [address] [address] documented as of this encounter Visit Diagnoses Not on filedocumented in this encounter Care Teams Urology Nurse Relationship Specialty Start Date End Date Gretchen Angelo APRN [address] [place] [address] PCP - General Nurse Practitioner 06/25/23 documented as of this encounter
--- OUTSIDE RECORDS SUMMARY | 2025-07-11 16:17 | XMS_ITS | Encounter Summary ---
Author Organization [facility] Address [address] [place] [address] Care Team Providers Care Barrel Charrer Name Role Phone None, None Primary Care Provider Unavailabl e Mychart, Generic Provider Unavailable EarlinevaShena Arias MD Unavailable [phone] Suellen Hurley NP Unavailable Unavailable Reason for Visit * Reason Comments Medications Refill Encounter Details Date Type Department Care Team (Late st Contact Info) Description 08/06/2021 Refill [facility] [place] [address] [facility] [address] Suellen Hurley NP Medications Refill [...] study documented in this encounter Care Teams Barrel Charrer Relationship Specialty Start Date End Date None, None [address] [place] [address] PCP - General 04/11/19 Mychart, Generic Provider 09/01/20 Shena Lloyd MD [address] [place] [address] Endocrinology/Diabetes/ Metabolism 12/30/20 Suellen Hurley NP [address] [place] [address] Nurse Practitioner Endocrinology/Diabetes/ Metabolism 03/29/21 documented as of this encounter
--- NOTE | 2025-07-11 16:28 | HMH.EDGENADL ---
Discharge Plan Disposition Patient Disposition: Admitted Prescriptions Prescriptions: No Action prednisone 20 mg tablet 20 mg PO BID 5 Days Qty: 10 0RF amoxicillin-pot clavulanate 875-125 mg tablet 1 tab PO BID 10 Days Qty: 20 0RF (DME) FreeStyle Poli 3 Sensor Device See Rx Instructions .Route Qty: 1 11RF Rx Instructions: As directed (DME) pen needle, diabetic 32 gauge x 5/32 needle See Rx Instructions .ROUTE .MEDSUPPLY Qty: 1200 1RF Rx Instructions: As directed Humalog KwikPen Insulin 200 unit/mL (3 mL) insulin pen 10 - 15 unit SQ AC Patient Comments: ADMINISTER 10 TO 15 UNITS SUBCUTANEOUSLY 3 TIMES A DAY BEFORE A MEAL PER SLIDING SCALE Rx Instructions: ADMINISTER 10 TO 15 UNITS SUBCUTANEOUSLY 3 TIMES A DAY BEFORE A MEAL PER SLIDING SCALE metoclopramide HCl [Reglan] 5 mg tablet 5 - 10 mg PO ACHS 30 Days Qty: 180 0RF pantoprazole 40 mg tablet,delayed release (DR/EC) 40 mg PO DAILY Qty: 30 0RF insulin lispro 100 unit/mL solution 0 unit continuous subcutaneous infusion CONT Referrals Follow up/Referrals: Gretchen Angelo APRN [Primary Care Provider, Family Practice] - See instructions Clinical Impressions Clinical Impression: Nausea & vomiting, Elevated lactic acid level Instructions Patient Instructions: DI for Diarrhea and Traveler's Diarrhea in Adults, DI for Diarrhea and Traveler's Diarrhea in Children, DI for Nausea in Adults, DI for Nausea in Children Print Language Print Language: Indonesian Discharge ED Provider: Giovanny Carter Adult HPI <Renee Arceo ([facility])ASPEN - Last Filed: 07/11/25 18:58> General Chief complaint: Nausea/Vomiting/Diarrhea Stated complaint: vomiting, possible low/high sugar Time Seen by Provider: 07/11/25 16:23 Mode of Arrival: Wheelchair Source of Information: Patient Description of Symptoms (Recalled from ER Triage Doc. by RN): Patient complaining of vomiting and diarrhea that started this morning. Patient states his Dexcom diabetes monitor has not been working, his insulin pump is connected to Dexcom, but checked his blood sugar on regular meter and it was 190-something. History of Present Illness HPI narrative: 24-year-old male presents for nausea vomiting and diarrhea that started this morning. Patient states his Dexcom is not working correctly his insulin pump is connected to his Dexcom but checked his blood sugar on a regular meter and it was 190s. Patient is complaining of abdominal pain. Related Data Home Medications ?Medication ?Instructions ?Recorded ?Confirmed insulin lispro 200 unit/mL (3 mL) 10 - 15 unit SQ AC 02/15/25 04/16/25 subcutaneous pen (Humalog KwikPen U-200 Insulin) insulin lispro 100 unit/mL 0 unit continuous subcutaneous 03/22/25 04/16/25 subcutaneous solution infusion CONT Previous Rx's ?Medication ?Instructions ?Recorded blood-glucose sensor (FreeStyle #1 ea 08/18/24 Poli 3 Sensor device) pen needle, diabetic 32 gauge x #1,200 ea 10/23/24 metoclopramide HCl 5 mg tablet 5 - 10 mg (1 - 2 x 5 mg) PO ACHS 02/17/25 (Reglan) 30 days #180 tabs pantoprazole 40 mg tablet,delayed 40 mg PO DAILY #30 tabs 02/17/25 release amoxicillin 875 mg-potassium 1 tab PO BID 10 days #20 tabs 04/16/25 clavulanate 125 mg tablet prednisone 20 mg tablet 20 mg PO BID 5 days #10 tabs 04/16/25 Allergies Allergy/AdvReac Type Severity Reaction Status Date / Time No Known Allergies Allergy Verified 04/16/25 15:17 [facility] <Renee Arceo ([facility]), LEG ASSEMBLER - Last Filed: 07/11/25 18:58> [facility] Disclaimer: The information contained in this section may have been updated after the patient was seen, as this information can be updated by other users. Medical History Insulin pump in place Vitamin D deficiency Vitamin B12 deficiency Non compliance with medical treatment Abdominal pain Abdominal pain Diabetes mellitus type 1 Hyperthyroidism Family History Other Cancer Diabetes Hypertension Social History Smoking Status: Current every day smoker tobacco type: e-cigarettes alcohol intake: never current occupational status: employed Travel in the last 8 weeks?: None Have you lived/traveled outside US in past 30 days?: No Contact w/someone who lives/traveled outside US past 30 days?: No Exposure to someone with infectious disease in past 14 days?: No Do you have a fever (greater than 100.4 F or 38 C)?: No Have you tested positive for COVID-19?: No Exposed to someone with COVID-19 in past 14 days?: No Do you have a sore throat?: No Do you have a cough?: No Do you have any weakness?: No Do you have any diarrhea?: No Are you experiencing any unusual bleeding?: No Do you have any muscle aches/pain?: No Do you have any abdominal pain?: No Are you experiencing loss of taste or smell?: No Other Medical History Have you received the Flu Vaccine for this season: No Have you received the Pneumonia Vaccine: No <Renee Arceo ([facility]), [employer]SEM[employer]ER - Last Filed: 07/11/25 18:58> ROS Obtained: Yes Systems reviewed as appropriate & no additional complaints except as documented Gastrointestinal Gastrointestingal: Reports system reviewed and no additional complaints, except as documented, as per HPI, abdominal pain, cramping, diarrhea, nausea and vomiting Physical Exam <Renee Arceo ([facility]), LEG ASSEM[employer]ER - Last Filed: 07/11/25 18:58> General General appearance: alert and in no apparent distress Eye Eye exam: Present normal appearance and PERRL ENT ENT exam: Present normal exam Respiratory Respiratory exam: Present normal lung sounds bilaterally Cardiovascular Cardiovascular exam: Present regular rate and normal rhythm Abdominal Exam Abdominal exam: Present soft, tenderness and normal bowel sounds Abdominal tenderness: Present diffuse Neurological Exam Neurological exam: Present alert and oriented X3 Skin Skin exam: Present warm and intact Medical Decision Making <Renee Arceo ([facility]), LE[employer] ASSEM[employer]ER - Last Filed: 07/11/25 18:58> Medical Records Medical records reviewed: Yes I reviewed the patient's medical records. Screening: Per USPSTF and CDC recommendations, given the prevalence of disease in our region, it is our hospital?s policy to screen for HIV and viral Hepatitis for all patients aged 18 and over and those with ongoing risk factors. Lui Inquiry Pt receiving controlled substance: No Vital Signs: 07/11/25 16:18 07/11/25 16:20 07/11/25 16:31 Temperature 97.9 F Temperature Source Oral Pulse Rate 61 66 Pulse Rate [Right Brachial] 62 Respiratory Rate 18 16 18 Blood Pressure 110/65 103/75 L Blood Pressure [Right Arm] 110/65 Blood Pressure Mean 81 83 Blood Pressure Mean [Right Arm] 80 Blood Pressure Source [Right Arm] Automatic Cuff Blood Pressure Position [Right Arm] Sitting 02 Sat by Pulse Oximetry 97 98 98 Oxygen Delivery Method Room Air 07/11/25 17:01 07/11/25 18:00 07/11/25 18:30 Temperature Temperature Source Pulse Rate 70 74 68 Pulse Rate [Right Brachial] Respiratory Rate 18 18 18 Blood Pressure 110/66 108/66 L 126/72 Blood Pressure [Right Arm] Blood Pressure Mean 76 70 80 Blood Pressure Mean [Right Arm] Blood Pressure Source [Right Arm] Blood Pressure Position [Right Arm] 02 Sat by Pulse Oximetry 99 96 Oxygen Delivery Method Lab Data Lab results reviewed: Yes I reviewed the patient's lab results. Lab Results 07/11/25 16:40: WBC 18.6 H, RBC 5.11, Hgb 14.8, Hct 42.6, MCV 83.4, MCH 29.0, MCHC 34.7, RDW 11.8, Plt Count 301, MPV 8.4, Neut % (Auto) 89.4 H, Lymph % (Auto) 5.3 L, Frontier % (Auto) 4.0, Eos % (Auto) 0.0 L, Baso % (Auto) 0.3, Neut # (Auto) 16.6 H, Lymph # (Auto) 1.0, Frontier # (Auto) 0.8, Eos # (Auto) 0.0, Baso # (Auto) 0.1, Sodium 140, Potassium 3.8, Chloride 104, Carbon Dioxide 24, Anion Gap 15.8 H, BUN 24 H, Creatinine 0.80, Estimated Creat Clear 127, Estimated GFR 118, Est GFR ( Amer) 143, Glucose 174 H, Lactate 3.4 H, Calcium 10.2, Total Bilirubin 0.6, AST 33, ALT 30, Alkaline Phosphatase 92, Total Protein 7.8 D, Albumin 5.0, Globulin 2.8, Albumin/Globulin Ratio 1.8, Lipase 16 L, Acetone Level None detected 07/11/25 16:58: VBG pH 7.43 H, VBG pCO2 37.1, VBG pO2 48.7 H, VBG HCO3 23.9, VBG Total CO2 25.0, VBG O2 Saturation 86.7 H, VBG Base Excess -0.5, VBG Lactic Acid 4.5 H 07/11/25 19:43: Urine Color Yellow, Urine Appearance Clear, Urine pH 8.5, Ur Specific [place] 1.015, Urine Protein Negative, Urine Glucose (UA) 3+, Urine Ketones 1+, Urine Blood Negative, Urine Nitrate Negative, Urine Bilirubin Negative, Urine Urobilinogen 0.2, Ur Leukocyte Esterase Negative, Urine WBC 3-5, Ur Squamous Epith Cells None, Urine Bacteria Trace, Urine Mucus 1+ 07/11/25 16:40 07/11/25 16:40 Orders (Tests/Meds): ED MEDICATIONS Discontinued Medications Generic Name Dose Route Start Last Admin Trade Name Freq PRN Reason Stop Dose Admin Diphenhydramine HCl 25 mg 07/11/25 19:14 07/11/25 19:39 Diphenhydramine 50mg/Ml Vial IV 07/11/25 19:15 25 mg ONCE ONE Administration Droperidol 2.5 mg 07/11/25 19:14 07/11/25 19:39 Droperidol 5mg/2ml Vial IV 07/11/25 19:15 2.5 mg ONCE ONE Administration Lactated Ringer's 1,000 mls @ 999 mls/hr 07/11/25 16:28 07/11/25 16:49 Lactated Ringer's 1000 Ml Bag IV 07/11/25 17:28 999 mls/hr .Q1H1M ONE Administration Lactated Ringer's 1,000 mls @ 999 mls/hr 07/11/25 17:37 07/11/25 17:50 Lactated Ringer's 1000 Ml Bag IV 07/11/25 18:37 999 mls/hr .Q1H1M ONE Administration Lactated Ringer's 500 mls @ 500 mls/hr 07/11/25 18:48 07/11/25 19:38 Lactated Ringer's 500ml IV 07/11/25 19:47 500 mls/hr .Q1H ONE Administration Iopamidol 75 ml 07/11/25 17:30 07/11/25 17:31 Iopamidol-370 (76%);100ml Bottle IV 07/11/25 17:31 75 ml ONCE ONE Administration Ondansetron HCl 4 mg 07/11/25 16:27 07/11/25 16:49 Ondansetron 4mg/2ml Vial IV 07/11/25 16:28 4 mg ONCE ONE Administration Ondansetron HCl 4 mg 07/11/25 18:03 07/11/25 18:17 Ondansetron 4mg/2ml Vial IV 07/11/25 18:04 4 mg ONCE ONE Administration Sodium Chloride 10 ml 07/11/25 17:30 07/11/25 17:31 Sodium Chloride 0.9% 10ml Syr (Rad Only) IV 07/11/25 17:31 10 ml ONCE ONE Administration ORDERS Category Date Time Status CT abdomen pelvis w con Stat Cat Scan 07/11/25 16:55 Completed Chest XR 2 view (NOT portable) [XR chest 2V] Stat Exams 07/11/25 16:55 Completed Acetone, Serum (Rapid) Stat Lab 07/11/25 16:40 Completed CBC w/Auto Diff [Complete Blood Count Auto Diff] Stat Lab 07/11/25 16:40 Completed CMP [Comprehensive Metabolic Panel] Stat Lab 07/11/25 16:40 Completed Lactate Venous Stat Lab 07/11/25 17:04 Ordered Lactic Acid Stat Lab 07/11/25 16:40 Completed Lipase Stat Lab 07/11/25 16:40 Completed Rapid PCR Covid and Flu A/B Stat Lab 07/11/25 20:12 Received UA [Urinalysis and Microscopic] Stat Lab 07/11/25 19:43 Completed Venous Blood Gas Stat RT 07/11/25 16:58 Completed Medical Decision Narrative: In summary patient is a 24-year-old male who presents to the emergency department for evaluation of abdominal pain, nausea vomiting diarrhea that started this a.m. Patient is hemodynamically stable upon arrival, afebrile. Abdominal tenderness throughout. Differential diagnosis includes DKA, viral illness, gastroparesis, bowel obstruction. Initial workup will be conducted with labs, chest x-ray, CT, flu and COVID swab, urine. Initial inventions include IV fluids, 2 doses of IV Zofran,. Initial workup reviewed by ri labs show elevated lactic acid, elevated white count. Upon repeat evaluation patient was resting comfortably and hour later rechecked patient he was again vomiting second dose of Zofran given. Given this [patient was appropriate for discharge at this time and will be discharged with a prescription for? This case was discussed with hospital medicine regarding management? They will meet the patient to their service for continued evaluation at this time? Etc.] <Giovanny Carter MD - Last Filed: 07/11/25 20:29> Vital Signs: 07/11/25 16:18 07/11/25 16:20 07/11/25 16:31 Temperature 97.9 F Temperature Source Oral Pulse Rate 61 66 Pulse Rate [Right Brachial] 62 Respiratory Rate 18 16 18 Blood Pressure 110/65 103/75 L Blood Pressure [Right Arm] 110/65 Blood Pressure Mean 81 83 Blood Pressure Mean [Right Arm] 80 Blood Pressure Source [Right Arm] Automatic Cuff Blood Pressure Position [Right Arm] Sitting 02 Sat by Pulse Oximetry 97 98 98 Oxygen Delivery Method Room Air 07/11/25 17:01 07/11/25 18:00 07/11/25 18:30 Temperature Temperature Source Pulse Rate 70 74 68 Pulse Rate [Right Brachial] Respiratory Rate 18 18 18 Blood Pressure 110/66 108/66 L 126/72 Blood Pressure [Right Arm] Blood Pressure Mean 76 70 80 Blood Pressure Mean [Right Arm] Blood Pressure Source [Right Arm] Blood Pressure Position [Right Arm] 02 Sat by Pulse Oximetry 99 96 Oxygen Delivery Method Lab Data Lab Results 07/11/25 16:40: WBC 18.6 H, RBC 5.11, Hgb 14.8, Hct 42.6, MCV 83.4, MCH 29.0, MCHC 34.7, RDW 11.8, Plt Count 301, MPV 8.4, Neut % (Auto) 89.4 H, Lymph % (Auto) 5.3 L, Frontier % (Auto) 4.0, Eos % (Auto) 0.0 L, Baso % (Auto) 0.3, Neut # (Auto) 16.6 H, Lymph # (Auto) 1.0, Frontier # (Auto) 0.8, Eos # (Auto) 0.0, Baso # (Auto) 0.1, Sodium 140, Potassium 3.8, Chloride 104, Carbon Dioxide 24, Anion Gap 15.8 H, BUN 24 H, Creatinine 0.80, Estimated Creat Clear 127, Estimated GFR 118, Est GFR ( Amer) 143, Glucose 174 H, Lactate 3.4 H, Calcium 10.2, Total Bilirubin 0.6, AST 33, ALT 30, Alkaline Phosphatase 92, Total Protein 7.8 D, Albumin 5.0, Globulin 2.8, Albumin/Globulin Ratio 1.8, Lipase 16 L, Acetone Level None detected 07/11/25 16:58: VBG pH 7.43 H, VBG pCO2 37.1, VBG pO2 48.7 H, VBG HCO3 23.9, VBG Total CO2 25.0, VBG O2 Saturation 86.7 H, VBG Base Excess -0.5, VBG Lactic Acid 4.5 H 07/11/25 19:43: Urine Color Yellow, Urine Appearance Clear, Urine pH 8.5, Ur Specific [place] 1.015, Urine Protein Negative, Urine Glucose (UA) 3+, Urine Ketones 1+, Urine Blood Negative, Urine Nitrate Negative, Urine Bilirubin Negative, Urine Urobilinogen 0.2, Ur Leukocyte Esterase Negative, Urine WBC 3-5, Ur Squamous Epith Cells None, Urine Bacteria Trace, Urine Mucus 1+ Orders (Tests/Meds): ED MEDICATIONS Discontinued Medications Generic Name Dose Route Start Last Admin Trade Name Renoq PRN Reason Stop Dose Admin Diphenhydramine HCl 25 mg 07/11/25 19:14 07/11/25 19:39 Diphenhydramine 50mg/Ml Vial IV 07/11/25 19:15 25 mg ONCE ONE Administration Droperidol 2.5 mg 07/11/25 19:14 07/11/25 19:39 Droperidol 5mg/2ml Vial IV 07/11/25 19:15 2.5 mg ONCE ONE Administration Lactated Ringer's 1,000 mls @ 999 mls/hr 07/11/25 16:28 07/11/25 16:49 Lactated Ringer's 1000 Ml Bag IV 07/11/25 17:28 999 mls/hr .Q1H1M ONE Administration Lactated Ringer's 1,000 mls @ 999 mls/hr 07/11/25 17:37 07/11/25 17:50 Lactated Ringer's 1000 Ml Bag IV 07/11/25 18:37 999 mls/hr .Q1H1M ONE Administration Lactated Ringer's 500 mls @ 500 mls/hr 07/11/25 18:48 07/11/25 19:38 Lactated Ringer's 500ml IV 07/11/25 19:47 500 mls/hr .Q1H ONE Administration Iopamidol 75 ml 07/11/25 17:30 07/11/25 17:31 Iopamidol-370 (76%);100ml Bottle IV 07/11/25 17:31 75 ml ONCE ONE Administration Ondansetron HCl 4 mg 07/11/25 16:27 07/11/25 16:49 Ondansetron 4mg/2ml Vial IV 07/11/25 16:28 4 mg ONCE ONE Administration Ondansetron HCl 4 mg 07/11/25 18:03 07/11/25 18:17 Ondansetron 4mg/2ml Vial IV 07/11/25 18:04 4 mg ONCE ONE Administration Sodium Chloride 10 ml 07/11/25 17:30 07/11/25 17:31 Sodium Chloride 0.9% 10ml Syr (Rad Only) IV 07/11/25 17:31 10 ml ONCE ONE Administration ORDERS Category Date Time Status CT abdomen pelvis w con Stat Cat Scan 07/11/25 16:55 Completed Chest XR 2 view (NOT portable) [XR chest 2V] Stat Exams 07/11/25 16:55 Completed Acetone, Serum (Rapid) Stat Lab 07/11/25 16:40 Completed CBC w/Auto Diff [Complete Blood Count Auto Diff] Stat Lab 07/11/25 16:40 Completed CMP [Comprehensive Metabolic Panel] Stat Lab 07/11/25 16:40 Completed Lactate Venous Stat Lab 07/11/25 17:04 Ordered Lactic Acid Stat Lab 07/11/25 16:40 Completed Lipase Stat Lab 07/11/25 16:40 Completed Rapid PCR Covid and Flu A/B Stat Lab 07/11/25 20:12 Received UA [Urinalysis and Microscopic] Stat Lab 07/11/25 19:43 Completed Venous Blood Gas Stat RT 07/11/25 16:58 Completed Medical Decision Narrative: In summary patient is a 24-year-old male who presents to the emergency department for evaluation of abdominal pain, nausea vomiting diarrhea that started this a.m. Patient is hemodynamically stable upon arrival, afebrile. Abdominal tenderness throughout. Differential diagnosis includes DKA, viral illness, gastroparesis, bowel obstruction. Initial workup will be conducted with labs, chest x-ray, CT, flu and COVID swab, urine. Initial inventions include IV fluids, 2 doses of IV Zofran,. Initial workup reviewed by ri labs show elevated lactic acid, elevated white count. Upon repeat evaluation patient was resting comfortably and hour later rechecked patient he was again vomiting second dose of Zofran given. Giovanny Carter MD: I was consulted by the ANUPAM, and we discussed the complexity of the problems being addressed. I approve the treatment and management plan for this patient's care in the emergency department, thus performing a substantive portion of the medical decision making. At time I assumed sole care of this patient, patient's repeat lactate still elevated but improved slightly. He has continued to vomit despite multiple episodes of Zofran and fluid replacement. Will administer 2.5 mg of IV droperidol and 25 mg of IV Benadryl. given his continued symptoms in the setting of elevated lactate, I do feel that he would require admission for continued fluid resuscitation and antiemetics for symptomatic improvement. I discussed patient's case with Dr. Juares with hospital medicine service who agreed to admit the patient for further management. Critical Care <Renee Arceo ([facility]), LEG ASSEMBLER - Last Filed: 07/11/25 18:58> Critical Care Time Critical Care Time: No
[2025-07-11] MEDS: ONDANSETRON 4MG/2ML VIAL 4 MG IV ×2 (16:49→18:17)
[2025-07-11] MEDS: LACTATED RINGERS 1000ML 1,000 ML 999 ML IV ×2 (16:49→17:50)
[2025-07-11 16:52] LABS: Hematocrit 42.6 % (42.0-52.0); Hemoglobin 14.8 g/dL (14.1-18.0); Immature Granulocytes % 1.0 %; Mean Corpuscular HGB Conc 34.7 g/dL (31.8-35.4); Mean Corpuscular Hemoglobin 29.0 pg (27.0-31.2); Mean Corpuscular Volume 83.4 fl (80-94); Nucleated Red Blood Cells % 0 %; Platelet Count 301 K/mm3 (142-424); Red Blood Count 5.11 M/mm3 (4.60-6.20); Red Cell Distribution Width-SD 35.8 fL; White Blood Count 18.6 K/mm3 (4.8-10.8)
--- NOTE | 2025-07-11 16:55 | XR_ITS ---
PROCEDURE INFORMATION: Exam: XR Chest Exam date and time: 07/11/2025 5:11 PM Age: 24 years old Clinical indication: Shortness of breath; Additional info: Elevated wbc TECHNIQUE: Imaging protocol: Radiologic exam of the chest. Views: 2 views. COMPARISON: CR XR CHEST PORTABLE 06/21/2023 5:13 PM FINDINGS: Lungs: Unremarkable. No consolidation. Pleural spaces: Unremarkable. No pleural effusion. No pneumothorax. Heart/Mediastinum: Unremarkable. No cardiomegaly. Bones/joints: Unremarkable. IMPRESSION: No acute findings.
--- NOTE | 2025-07-11 16:55 | CT_ITS ---
PROCEDURE INFORMATION: Exam: CT Abdomen And Pelvis With Contrast Exam date and time: 07/11/2025 5:30 PM Age: 24 years old Clinical indication: Abdominal pain; Additional info: Abd pain TECHNIQUE: Imaging protocol: Computed tomography of the abdomen and pelvis with contrast. Radiation optimization: All CT scans at this facility use at least one of these dose optimization techniques: automated exposure control; mA and/or kV adjustment per patient size (includes targeted exams where dose is matched to clinical indication); or iterative reconstruction. Contrast material: ISOVUE; Contrast volume: 75 ml; Contrast route: IV; COMPARISON: CT ABDOMEN PELVIS W CON 03/20/2025 3:15 PM FINDINGS: Heart: Upper limits of normal heart size. Liver: Normal. No mass. Gallbladder and biliary ducts: Normal. No calcified stones. No ductal dilation. Pancreas: Normal. No ductal dilation. Spleen: Normal. No splenomegaly. Adrenal glands: Normal. No mass. Kidneys and ureters: Low attenuation renal lesions measuring up to 9 mm in diameter are incompletely characterized, but are likely cysts. No followup imaging is warranted. Stomach and bowel: Mild bowel wall thickening of the small bowel and colon. Appendix: The appendix is not identified possibly due to lack of fat planes around the base of the cecum. Intraperitoneal space: Unremarkable. No free air. No significant fluid collection. Vasculature: Unremarkable. No abdominal aortic aneurysm. Lymph nodes: Unremarkable. No enlarged lymph nodes. Urinary bladder: Unremarkable as visualized. Reproductive: Unremarkable as visualized. Bones/joints: Unremarkable. No acute fracture. Soft tissues: Unremarkable. IMPRESSION: Mild bowel wall thickening of the small bowel and colon. Please correlate for evidence of enterocolitis. COMMENTS: Consistent with the [employer]'s Incidental Findings Committee white paper (J Am Wes Radiol 2018): Any incidental renal lesion less than 1 cm or classified as too small to characterize, or any incidental cystic renal lesion characterized as simple-appearing, is likely benign. No follow-up imaging is recommended for these lesions per consensus recommendations based on imaging criteria.
[2025-07-11 17:09] LABS: Albumin Level 5.0 g/dl (3.5-5.0); Chloride 104 mmol/L (98-107); Potassium 3.8 mmoL/L (3.5-5.1); Sodium 140 mmol/L (136-145)
[2025-07-11 17:11] LABS: Blood Urea Nitrogen 24 mg/dl (9-20); Creatinine Clearance Estimated 127 mL/min (50-200); Creatinine,Serum 0.80 mg/dl (0.66-1.25); Estimated Glomerular Filt Rate 118 ml/min (>60); GFR (African American) 143 ML/MIN (>60)
[2025-07-11 17:12] LABS: Alanine Aminotransferase 30 U/L (12-78); Albumin/Globulin Ratio 1.8 (1.1-1.8); Alkaline Phosphatase 92 U/L (38-126); Anion Gap 15.8 mEq/L (5-15); Aspartate Amino Transferase 33 U/L (17-59); Bilirubin,Total 0.6 mg/dl (0.2-1.3); Calcium 10.2 mg/dl (8.4-10.2); Carbon Dioxide 24 mmol/L (22.0-30.0); Globulin 2.8 g/dL (1.3-3.2); Glucose 174 mg/dl (74-100); Total Protein,Serum 7.8 g/dl (6.3-8.2)
[2025-07-11 17:19] LABS: Acetone, Serum (Rapid) None Detected (None Detect)
[2025-07-11 17:21] LABS: Lipase 16 U/L (23-300)
[2025-07-11] MEDS: SODIUM CHLORIDE 0.9% 10ML SYR (RAD ONLY) 10 ML IV (17:31)
[2025-07-11] MEDS: IOPAMIDOL-370 (76%);100ML BOTTLE 75 ML IV (17:31)
[2025-07-11 17:34] LABS: VBG HCO3 23.9 mmol/L (23-30); VBG PCO2 37.1 mmol/L (35-51); VBG PH 7.43 mmol/L (7.31-7.41); VBG PO2 48.7 mmol/L (28-40)
[2025-07-11 17:37] LABS: Lactate Venous 4.5 mmol/L (0.4-2.0)
--- NOTE | 2025-07-11 19:28 | PC.NURSE ---
called [facility] for possible pt xfer said they would call back
--- NOTE | 2025-07-11 19:35 | ECG_ITS ---
APPROVED REPORT Exam: Resting ECG HR:63 bpm ECG Measurements Heart Rate 63 AXES MO 170 P 72 QRSd 100 QRS 93 QT 410 T 82 QTc 418 Conclusion SINUS RHYTHM WITH SINUS ARRHYTHMIA BORDERLINE RIGHT AXIS DEVIATION [QRS AXIS > 90] No STEMI Electronically signed by : JOHN PAUL TORRES, 07/12/2025 07:13:42
[2025-07-11] MEDS: RINGERS SOLUTION,LACTATED 500 ML IV (19:38)
[2025-07-11] MEDS: droPERidol 5MG/2ML VIAL 2.5 MG IV (19:39)
[2025-07-11 19:49] LABS: Microscopic, Urine URINE MICROSCOPIC (MICROSCOPIC)
[2025-07-11 19:50] LABS: Bilirubin,Urine Negative (Negative); Color,Urine YELLOW (Yellow); Glucose,Urine (UA) 3+ (Negative); Ketones,Urine 1+ (Negative); Leukocyte Esterase,Urine Negative (Negative); PH,Urine 8.5 (5.0-8.5); Protein,Urine Negative (Negative); Specific Gravity, Urine 1.015 (1.005-1.030); Urobilinogen,Urine 0.2 EU/dl (0.2)
[2025-07-11 20:13] LABS: Bacteria,Urine Trace /lpf; Mucus,Urine 1+ /lpf
[2025-07-11 20:17] LABS: Coronavirus 19, PCR Not Detected (NotDetected); Influenza A, PCR Not Detected (NotDetected); Influenza B, PCR Not Detected (NotDetected)
--- NOTE | 2025-07-11 21:00 | PC.NURSE ---
Report called to Juliann
[2025-07-11 21:20] LABS: Reflex Lactic Add Lactic Reflex
[2025-07-11 22:28] LABS: Lactic Acid Follow Up (RFLX 1) 3.8 mmol/L (0.7-2.1)
--- NOTE | 2025-07-11 22:46 | EXP.HP ---
History of Present Illness *Admission Date: 07/11/25 *Reason for visit:: Nausea *History of present illness: 24-year-old male who presents to the emergency department for evaluation of abdominal pain, nausea vomiting diarrhea that started this a.m. Initial workup will be conducted with labs, chest x-ray, CT, flu and COVID swab, urine. Initial inventions include IV fluids, 2 doses of IV Zofran,. work up in ED negative for DKA> recieved multiple doses of anti emetics without improvement of symptoms. declined marijuana consumtpion. was administered 2.5 mg of IV droperidol and 25 mg of IV Benadryl. discussed due to inability to tolerate PO admitted for further management. agreeable. no other complaints [facility] Disclaimer: The information contained in this section may have been updated after the patient was seen, as this information can be updated by other users. Medical History Insulin pump in place Vitamin D deficiency Vitamin B12 deficiency Non compliance with medical treatment Abdominal pain Abdominal pain Diabetes mellitus type 1 Hyperthyroidism Family History Other Cancer Diabetes Hypertension Social History Smoking Status: Current every day smoker tobacco type: e-cigarettes alcohol intake: never current occupational status: employed Travel in the last 8 weeks?: None Have you lived/traveled outside US in past 30 days?: No Contact w/someone who lives/traveled outside US past 30 days?: No Exposure to someone with infectious disease in past 14 days?: No Do you have a fever (greater than 100.4 F or 38 C)?: No Have you tested positive for COVID-19?: No Exposed to someone with COVID-19 in past 14 days?: No Do you have a sore throat?: No Do you have a cough?: No Do you have any weakness?: No Do you have any diarrhea?: No Are you experiencing any unusual bleeding?: No Do you have any muscle aches/pain?: No Do you have any abdominal pain?: No Are you experiencing loss of taste or smell?: No Other Medical History Have you received the Flu Vaccine for this season: No Have you received the Pneumonia Vaccine: No Review of Systems Review of Systems Review of systems:: pertinent systems reviewed and negative unless documented below Constitutional Constitutional: Reports system reviewed and no additional complaints, except as documented *Cardiovascular Cardiovascular: Reports system reviewed and no additional complaints, except as documented *Respiratory Respiratory: Reports system reviewed and no additional complaints, except as documented *Gastrointestinal Gastrointestinal: Reports system reviewed and no additional complaints, except as documented *Genitourinary Genitourinary: Reports system reviewed and no additional complaints, except as documented *Musculoskeletal Musculoskeletal: Reports system reviewed and no additional complaints, except as documented *Neurologic Neurologic: Reports system reviewed and no additional complaints, except as documented Meds Home Medications and Allergies Home Medications ?Medication ?Instructions ?Recorded ?Confirmed ?Type blood-glucose sensor (FreeStyle #1 ea 08/18/24 07/11/25 Rx Poli 3 Sensor device) pen needle, diabetic 32 gauge x #1,200 ea 10/23/24 07/11/25 Rx /32 insulin lispro 200 unit/mL (3 mL) 10 - 15 unit SQ AC 02/15/25 07/11/25 History subcutaneous pen (Humalog KwikPen U-200 Insulin) metoclopramide HCl 5 mg tablet 5 - 10 mg (1 - 2 x 5 mg) PO ACHS 02/17/25 07/11/25 Rx (Reglan) 30 days #180 tabs pantoprazole 40 mg tablet,delayed 40 mg PO DAILY #30 tabs 02/17/25 07/11/25 Rx release insulin lispro 100 unit/mL 0 unit continuous subcutaneous 03/22/25 07/11/25 History subcutaneous solution infusion CONT New Prescriptions to Start Prescriptions: Allergies Allergy/AdvReac Type Severity Reaction Status Date / Time No Known Allergies Allergy Verified 04/16/25 15:17 Exam Data for Last 24 hours Vital signs and Labs for Last 24 Hours: Temp Pulse Resp BP Pulse Ox O2 Del Method 98.5 F 66 16 105/48 L 100 Room Air 07/11/25 22:23 07/11/25 22:23 07/11/25 22:23 07/11/25 22:23 07/11/25 22:23 07/11/25 22:23 Laboratory Results - last 24 hr 07/11/25 16:40: WBC 18.6 H, RBC 5.11, Hgb 14.8, Hct 42.6, MCV 83.4, MCH 29.0, MCHC 34.7, RDW 11.8, Plt Count 301, MPV 8.4, Neut % (Auto) 89.4 H, Lymph % (Auto) 5.3 L, [place] % (Auto) 4.0, Eos % (Auto) 0.0 L, Baso % (Auto) 0.3, Neut # (Auto) 16.6 H, Lymph # (Auto) 1.0, [place] # (Auto) 0.8, Eos # (Auto) 0.0, Baso # (Auto) 0.1, Sodium 140, Potassium 3.8, Chloride 104, Carbon Dioxide 24, Anion Gap 15.8 H, BUN 24 H, Creatinine 0.80, Estimated Creat Clear 127, Estimated GFR 118, Est GFR ( Amer) 143, Glucose 174 H, Lactate 3.4 H, Calcium 10.2, Total Bilirubin 0.6, AST 33, ALT 30, Alkaline Phosphatase 92, Total Protein 7.8 D, Albumin 5.0, Globulin 2.8, Albumin/Globulin Ratio 1.8, Lipase 16 L, Acetone Level None detected 07/11/25 16:58: VBG pH 7.43 H, VBG pCO2 37.1, VBG pO2 48.7 H, VBG HCO3 23.9, VBG Total CO2 25.0, VBG O2 Saturation 86.7 H, VBG Base Excess -0.5, VBG Lactic Acid 4.5 H 07/11/25 19:43: Urine Color Yellow, Urine Appearance Clear, Urine pH 8.5, Ur Specific [place] 1.015, Urine Protein Negative, Urine Glucose (UA) 3+, Urine Ketones 1+, Urine Blood Negative, Urine Nitrate Negative, Urine Bilirubin Negative, Urine Urobilinogen 0.2, Ur Leukocyte Esterase Negative, Urine WBC 3-5, Ur Squamous Epith Cells None, Urine Bacteria Trace, Urine Mucus 1+ 07/11/25 20:13: Lactate 3.8 H I & O for Last 24 hours: Intake & Output 07/08/25 07/09/25 07/10/25 07/11/25 23:59 23:59 23:59 23:59 Intake Total 2500 / 2500 Balance 2500 / 2500 Weight 56.245 kg Constitutional Constitutional: no acute distress *Routine HEENT Exam Head: Present normocephalic Eye: Present EOMI and PERRL ENT: Present mucous membranes moist *Routine Neck Exam Neck: Present supple; Absent lymphadenopathy *Routine Respiratory Exam Respiratory: Present CTA bilaterally *Routine Cardiovascular Exam Cardiovascular: Present RRR *Routine Abdominal Exam Abdominal: Present soft and normoactive bowel sounds; Absent tenderness *Routine Rectal Exam Rectal:: deferred *Routine Genitalia Exam Genitalia:: deferred *Routine Extremities Exam Extremities: Absent cyanosis, clubbing or edema *Routine Skin Exam Skin: Present warm; Absent rash *Routine Neurological Exam Neurological: Present alert and oriented X3 Assessment and Plan *Assessment and plan (1) Nausea & vomiting: Status: Acute Category: Medical Code(s): R11.2 - Nausea with vomiting, unspecified Plan intractable nausea - zofran prn - promethazine prn - LR continuous - advance diet as tolerated. regular ordered T1DM - continue insulin pump
[2025-07-11] MEDS: LACTATED RINGERS 1000ML 1,000 ML 125 ML IV (23:08)
[2025-07-12 00:04] LABS: Reflex Lactic (2 hrs) Add Lactic Reflex
--- NOTE | 2025-07-12 02:19 | PC.NURSE ---
New admit this shift. AOx4. Tolerating room air. Intermittent nausea and vomiting upon waking. Pt has been very drowsy since admission. LR running at 125mL/hr. Currently resting in bed with eyes closed. Respirations even and unlabored. Bed is low, locked, and call light is in reach.
[2025-07-12 04:00] VITALS: BP 99/69; PULSE 72; RESP 16; TEMP 36.8; O2SAT 97; BMI 19.5
[2025-07-12] MEDS: ONDANSETRON 4MG/2ML VIAL 4 MG IV ×2 (04:25→12:35)
[2025-07-12 05:55] LABS: Hematocrit 37.5 % (42.0-52.0); Hemoglobin 13.5 g/dL (14.1-18.0); Immature Granulocytes % 0.6 %; Mean Corpuscular HGB Conc 36.0 g/dL (31.8-35.4); Mean Corpuscular Hemoglobin 29.8 pg (27.0-31.2); Mean Corpuscular Volume 82.8 fl (80-94); Nucleated Red Blood Cells % 0 %; Platelet Count 277 K/mm3 (142-424); Red Blood Count 4.53 M/mm3 (4.60-6.20); Red Cell Distribution Width-SD 36.0 fL; White Blood Count 16.0 K/mm3 (4.8-10.8)
[2025-07-12] MEDS: PROMETHAZINE HCL 25MG/ML 1ML VIAL 25 MG IV (06:06)
[2025-07-12 06:18] LABS: Blood Urea Nitrogen 21 mg/dl (9-20); Creatinine Clearance Estimated 112 mL/min (50-200); Creatinine,Serum 0.80 mg/dl (0.66-1.25); Estimated Glomerular Filt Rate 118 ml/min (>60); GFR (African American) 143 ML/MIN (>60)
[2025-07-12 06:19] LABS: Alanine Aminotransferase 18 U/L (12-78); Alkaline Phosphatase 68 U/L (38-126); Aspartate Amino Transferase 24 U/L (17-59); Bilirubin,Total 0.5 mg/dl (0.2-1.3); Calcium 9.2 mg/dl (8.4-10.2); Carbon Dioxide 29 mmol/L (22.0-30.0); Glucose 169 mg/dl (74-100); Magnesium 1.5 mg/dl (1.6-2.3); Phosphorous 3.5 mg/dl (2.5-4.5); Total Protein,Serum 6.3 g/dl (6.3-8.2)
[2025-07-12 06:30] LABS: Albumin Level 4.0 g/dl (3.5-5.0); Albumin/Globulin Ratio 1.7 (1.1-1.8); Anion Gap 10.9 mEq/L (5-15); Chloride 103 mmol/L (98-107); Globulin 2.3 g/dL (1.3-3.2); Potassium 3.9 mmoL/L (3.5-5.1); Sodium 139 mmol/L (136-145)
[2025-07-12 06:33] LABS: POC Glucose,Bedside 179 gm/dL (70-110)
[2025-07-12 08:00] VITALS: BP 93/51; PULSE 64; RESP 18; TEMP 37; O2SAT 98
[2025-07-12] MEDS: LACTATED RINGERS 1000ML 1,000 ML 125 ML IV ×2 (08:02→18:04)
[2025-07-12] MEDS: PIPERCILLIN/TAZO 3.375 GM in 0.9 % SODIUM CHLORIDE 50 ML IV ×3 (08:56→19:59)
[2025-07-12 09:20] LABS: Adenovirus,PCR Not Detected (NotDetected); Chlamydophila Pneumoniae, PCR Not Detected (NotDetected); Coronavirus 19, PCR Not Detected (NotDetected); Coronovirus HKU1,PCR Not Detected (NotDetected); Influenza A, PCR Not Detected (NotDetected); Influenza AH1, 2009 Not Detected (NotDetected); Influenza AH1, PCR Not Detected (NotDetected); Influenza AH3,PCR Not Detected (NotDetected); Influenza B, PCR Not Detected (NotDetected); Mycoplasma Pneumoniae, PCR Not Detected (NotDetected); Parainfluenza 1, PCR Not Detected (NotDetected); Parainfluenza 2, PCR Not Detected (NotDetected); Parainfluenza 3, PCR Not Detected (NotDetected); Parainfluenza 4, PCR Not Detected (NotDetected)
--- NOTE | 2025-07-12 09:36 | HMH.PHAINT1 ---
Pharmacy Intervention Comments: MEDICATION RECONCILIATION COMPLETED ON PATIENT USING EXTERNAL FILL HISTORY FROM PHARMACY AND LIST FROM PCP OFFICE. -BRODY JESUS, GARETTD
[2025-07-12 11:40] LABS: POC Glucose,Bedside 122 gm/dL (70-110)
[2025-07-12] MEDS: METOCLOPRAMIDE HCL 10MG/2ML VIAL 5 MG IVP ×3 (12:45→20:00)
--- NOTE | 2025-07-12 14:17 | HMH.PHAAMS2 ---
- Antimicrobial Stewardship Review culture & sensitivity review Stewardship interventions: culture & sensitivity review (NO CX COLLECTED)
--- NOTE | 2025-07-12 15:22 | PC.NURSE ---
VS stable, patient remained on room air. Nausea and vomiting noted, reglan reordered.
--- NOTE | 2025-07-12 15:26 | EXP.PN ---
Subjective *Date: 07/12/25 *Time: 15:26 Interval history: Patient continues to be globally weak, not tolerating p.o. intake well. Restarted home IV Reglan, Protonix. Started Zosyn for possible bacterial colitis. Follow-up stool PCR. Exam Data for Last 24 hours Vital signs and Labs for Last 24 Hours: Temp Pulse Resp BP Pulse Ox O2 Del Method 98.6 F 64 18 93/51 L 98 Room Air 07/12/25 08:00 07/12/25 08:00 07/12/25 08:00 07/12/25 08:00 07/12/25 08:00 07/12/25 15:00 Laboratory Results - last 24 hr 07/11/25 16:40: WBC 18.6 H, RBC 5.11, Hgb 14.8, Hct 42.6, MCV 83.4, MCH 29.0, MCHC 34.7, RDW 11.8, Plt Count 301, MPV 8.4, Neut % (Auto) 89.4 H, Lymph % (Auto) 5.3 L, [place] % (Auto) 4.0, Eos % (Auto) 0.0 L, Baso % (Auto) 0.3, Neut # (Auto) 16.6 H, Lymph # (Auto) 1.0, [place] # (Auto) 0.8, Eos # (Auto) 0.0, Baso # (Auto) 0.1, Sodium 140, Potassium 3.8, Chloride 104, Carbon Dioxide 24, Anion Gap 15.8 H, BUN 24 H, Creatinine 0.80, Estimated Creat Clear 127, Estimated GFR 118, Est GFR ( Amer) 143, Glucose 174 H, Lactate 3.4 H, Calcium 10.2, Total Bilirubin 0.6, AST 33, ALT 30, Alkaline Phosphatase 92, Total Protein 7.8 D, Albumin 5.0, Globulin 2.8, Albumin/Globulin Ratio 1.8, Lipase 16 L, Acetone Level None detected 07/11/25 16:58: VBG pH 7.43 H, VBG pCO2 37.1, VBG pO2 48.7 H, VBG HCO3 23.9, VBG Total CO2 25.0, VBG O2 Saturation 86.7 H, VBG Base Excess -0.5, VBG Lactic Acid 4.5 H 07/11/25 19:43: Urine Color Yellow, Urine Appearance Clear, Urine pH 8.5, Ur Specific [place] 1.015, Urine Protein Negative, Urine Glucose (UA) 3+, Urine Ketones 1+, Urine Blood Negative, Urine Nitrate Negative, Urine Bilirubin Negative, Urine Urobilinogen 0.2, Ur Leukocyte Esterase Negative, Urine WBC 3-5, Ur Squamous Epith Cells None, Urine Bacteria Trace, Urine Mucus 1+ 07/11/25 20:12: Chlamy pneumoniae PCR Not detected, Adenovirus (PCR) Not detected, B. pertussis DNA (PCR) Not detected, Coronavirus OC43 (PCR) Not detected, Coronavirus HKU1 (PCR) Not detected, Coronavirus 229E (PCR) Not detected, SARS-CoV-2 (PCR) Not detected 07/11/25 20:12: SARS-CoV-2 (PCR) Not detected, Coronavirus NL63 (PCR) Not detected, Human Metapneumovir PCR Not detected, Influenza A (H1) PCR Not detected, Influ A (H1N1/09) PCR Not detected, Influenza A (H3) PCR Not detected, Influenza Type A (PCR) Not detected, Influenza A Untype (PCR) Not detected, Influenza Type B (PCR) Not detected 07/11/25 20:12: Influenza Type B (PCR) Not detected, M. pneumoniae (PCR) Not detected, Parainfluenza 1 (PCR) Not detected, Parainfluenza 2 (PCR) Not detected, Parainfluenza 3 (PCR) Not detected, Parainfluenza 4 (PCR) Not detected, RSV (PCR) Not detected, Entero/Rhino (PCR) Not detected 07/11/25 20:13: Lactate 3.8 H 07/12/25 05:45: WBC 16.0 H, RBC 4.53 L, Hgb 13.5 L, Hct 37.5 L, MCV 82.8, MCH 29.8, MCHC 36.0 H, RDW 11.9, Plt Count 277, MPV 8.1, Neut % (Auto) 81.8 H, Lymph % (Auto) 10.0, [place] % (Auto) 7.4, Eos % (Auto) 0.0 L, Baso % (Auto) 0.2, Neut # (Auto) 13.1 H, Lymph # (Auto) 1.6, [place] # (Auto) 1.2 H, Eos # (Auto) 0.0, Baso # (Auto) 0.0, Sodium 139, Potassium 3.9, Chloride 103, Carbon Dioxide 29, Anion Gap 10.9, BUN 21 H, Creatinine 0.80, Estimated Creat Clear 112, Estimated GFR 118, Est GFR ( Amer) 143, Glucose 169 H, Lactate 0.9, Calcium 9.2, Phosphorus 3.5, Magnesium 1.5 L, Total Bilirubin 0.5, AST 24 D, ALT 18 D, Alkaline Phosphatase 68, Total Protein 6.3, Albumin 4.0 D, Globulin 2.3, Albumin/Globulin Ratio 1.7 07/12/25 06:26: POC Glucose 179 H 07/12/25 11:32: POC Glucose 122 H I & O for Last 24 hours: Intake & Output 07/09/25 07/10/25 07/11/25 07/12/25 23:59 23:59 23:59 23:59 Intake Total 2500 / 2500 1050 / 1050 Output Total 0 / 0 Balance 2500 / 2500 1050 / 1050 Weight 56.245 kg 56.427 kg Constitutional Constitutional: no acute distress and chronically ill appearing Comments: Globally weak *Routine HEENT Exam Head: Present normocephalic Eye: Present EOMI and PERRL ENT: Present mucous membranes moist *Routine Neck Exam Neck: Present supple; Absent lymphadenopathy *Routine Respiratory Exam Respiratory: Present CTA bilaterally *Routine Cardiovascular Exam Cardiovascular: Present RRR *Routine Abdominal Exam Abdominal: Present soft and normoactive bowel sounds; Absent tenderness *Routine Extremities Exam Extremities: Absent cyanosis, clubbing or edema *Routine Skin Exam Skin: Present warm; Absent rash *Routine Neurological Exam Neurological: Present alert and oriented X3 Assessment and Plan *Assessment and plan (1) Intractable nausea and vomiting: Status: Acute Category: Medical Code(s): R11.2 - Nausea with vomiting, unspecified (2) Colitis: Status: Acute Category: Medical Code(s): K52.9 - Noninfective gastroenteritis and colitis, unspecified (3) Diabetes mellitus type 1: Status: Acute Qualifiers: Diabetes mellitus complication status: with other specified complication Qualified Code(s): E10.69 - Type 1 diabetes mellitus with other specified complication Category: Medical Code(s): E10.9 - Type 1 diabetes mellitus without complications (4) DKA (diabetic ketoacidosis): Status: Resolved Qualifiers: Diabetes mellitus type: type 1 Diabetes mellitus complication detail: without coma Qualified Code(s): E10.10 - Type 1 diabetes mellitus with ketoacidosis without coma Category: Medical Code(s): E11.10 - Type 2 diabetes mellitus with ketoacidosis without coma Plan Barry Ratliff is a 24-year-old male with a medical significant for type 1 diabetes on insulin pump, cannabanoid hyperemesis syndrome, gastroparesis, medical nonadherence presents with intractable nausea/vomiting in the setting of suspected gastroenteritis and was admitted for dehydration, poor oral intake, weakness. #Acute viral syndrome #Enterocolitis #Gastroparesis ? Presented with intractable nausea/vomiting for the past few days. ? CT abdomen pelvis suggestive of enterocolitis. Initial WBC 18.6. Poor oral intake. Full respiratory panel normal. ? Today, patient is globally weak. Not tolerating p.o. intake well. WBC down to 16.0. ? Started IV Zosyn 3.375 g every 6 hours for possible bacterial enterocolitis. Follow-up stool PCR. ? Restarted home IV Reglan 5 mg ACHS. ? Continue NS at 125 mL/h. ? Follow-up morning CBC. #Type 1 diabetes ? Continue insulin pump. Blood sugar stable. ACHS glucose checks. #GERD # History of esophagitis ? Started IV Protonix 40 mg. Full code DVT prophylaxis: Lovenox 40 mg
[2025-07-12 16:00] VITALS: BP 110/39; PULSE 54; RESP 18; TEMP 37.4; O2SAT 98
[2025-07-12] MEDS: PANTOPRAZOLE 40MG VIAL 40 MG IV (16:05)
[2025-07-12 16:22] LABS: POC Glucose,Bedside 137 gm/dL (70-110)
[2025-07-12 20:00] VITALS: BP 114/60; PULSE 61; RESP 16; TEMP 36.8; O2SAT 100
[2025-07-13] MEDS: PIPERCILLIN/TAZO 3.375 GM in 0.9 % SODIUM CHLORIDE 50 ML IV ×4 (03:17→20:53)
[2025-07-13] MEDS: LACTATED RINGERS 1000ML 1,000 ML 125 ML IV ×3 (03:52→23:55)
[2025-07-13 04:00] VITALS: BP 105/47; PULSE 52; RESP 16; TEMP 37; O2SAT 98
[2025-07-13] MEDS: METOCLOPRAMIDE HCL 10MG/2ML VIAL 5 MG IVP ×4 (05:04→20:53)
[2025-07-13 05:19] LABS: POC Glucose,Bedside 118 gm/dL (70-110)
[2025-07-13 08:00] VITALS: BP 125/85; PULSE 65; RESP 22; TEMP 36.8; O2SAT 98
[2025-07-13] MEDS: ONDANSETRON 4MG/2ML VIAL 4 MG IV (08:16)
--- NOTE | 2025-07-13 09:17 | HMH.PHAAMS2 ---
- Antimicrobial Stewardship Review culture & sensitivity review Stewardship interventions: culture & sensitivity review, reviewed - no change Comments: NO SPECIMAN, PATIENT ON ZOSYN FOR COLITIS.
[2025-07-13 10:37] LABS: Hematocrit 37.1 % (42.0-52.0); Hemoglobin 12.8 g/dL (14.1-18.0); Immature Granulocytes % 0.8 %; Mean Corpuscular HGB Conc 34.5 g/dL (31.8-35.4); Mean Corpuscular Hemoglobin 28.8 pg (27.0-31.2); Mean Corpuscular Volume 83.4 fl (80-94); Nucleated Red Blood Cells % 0 %; Platelet Count 253 K/mm3 (142-424); Red Blood Count 4.45 M/mm3 (4.60-6.20); Red Cell Distribution Width-SD 35.7 fL; White Blood Count 15.5 K/mm3 (4.8-10.8)
[2025-07-13 10:52] LABS: Albumin Level 3.9 g/dl (3.5-5.0); Chloride 103 mmol/L (98-107); Potassium 4.1 mmoL/L (3.5-5.1); Sodium 138 mmol/L (136-145)
[2025-07-13 10:54] LABS: Alanine Aminotransferase 18 U/L (12-78); Aspartate Amino Transferase 33 U/L (17-59); Blood Urea Nitrogen 24 mg/dl (9-20); Creatinine Clearance Estimated 102 mL/min (50-200); Creatinine,Serum 0.90 mg/dl (0.66-1.25); Estimated Glomerular Filt Rate 103 ml/min (>60); GFR (African American) 124 ML/MIN (>60)
[2025-07-13 10:55] LABS: Albumin/Globulin Ratio 1.9 (1.1-1.8); Alkaline Phosphatase 65 U/L (38-126); Anion Gap 12.1 mEq/L (5-15); Bilirubin,Total 0.7 mg/dl (0.2-1.3); Calcium 8.8 mg/dl (8.4-10.2); Carbon Dioxide 27 mmol/L (22.0-30.0); Globulin 2.1 g/dL (1.3-3.2); Glucose 165 mg/dl (74-100); Magnesium 1.8 mg/dl (1.6-2.3); Total Protein,Serum 6.0 g/dl (6.3-8.2)
--- NOTE | 2025-07-13 11:47 | EXP.ACUTE.PN ---
Subjective *Date: 07/13/25 *Time: 17:01 Interval history: Continues to be fatigued and have vomiting today. Tolerating liquids for a portion of the day but then had vomiting in the afternoon. Reevaluate in the morning. Stable on room air. Afebrile. No further diarrhea Medical Exam Vital signs and Labs for Last 24 Hours: Vital Signs Temp Pulse Resp BP Pulse Ox O2 Del Method 07/13/25 08:48 Room Air 07/13/25 08:00 98.2 F 65 22 125/85 98 Room Air 07/13/25 07:48 Room Air 07/13/25 06:40 Room Air 07/13/25 04:50 Room Air 07/13/25 04:00 98.6 F 52 L 16 105/47 L 98 Room Air 07/13/25 03:00 Room Air 07/13/25 01:00 Room Air 07/12/25 23:00 Room Air 07/12/25 21:00 Room Air 07/12/25 20:00 Room Air 07/12/25 20:00 98.2 F 61 16 114/60 100 Room Air 07/12/25 18:33 Room Air 07/12/25 17:10 Room Air 07/12/25 16:00 99.3 F 54 L 18 110/39 L 98 Room Air 07/12/25 15:00 Room Air 07/12/25 13:00 Room Air Intake and Output 07/12/25 07/13/25 07/13/25 23:59 07:59 15:59 Intake Total 1100 / 2420 1050 / 1100 50 / 1100 Output Total 0 / 0 0 / 0 Balance 1100 / 2420 1050 / 1100 50 / 1100 Intake: Intake, Total IV Amount 1100 / 2150 1050 / 1100 50 / 1100 Lactated Ringers 1000ML 1,000 1000 / 2000 1000 / 1000 ml @ 125 mls/hr IV .Q8H MARCELO Rx# :[id number] Pipercillin/Tazo 3.375 gm In 0. 100 / 150 50 / 100 50 / 100 9 % Sodium Chloride 50 ml @ 100 mls/hr IV Q6H MARCELO Rx#:[id number] Output: Output, Urine Amount 0 / 0 0 / 0 Other: Number of Unmeasured Voids 1 1 Weight 57.742 kg Patient Weight 07/13/25 23:59 Weight 57.742 kg Laboratory Results - last 24 hr 12/27/25 20:12: Chlamy pneumoniae PCR Not detected, Adenovirus (PCR) Not detected, B. pertussis DNA (PCR) Not detected, Coronavirus OC43 (PCR) Not detected, Coronavirus HKU1 (PCR) Not detected, Coronavirus 229E (PCR) Not detected, SARS-CoV-2 (PCR) Not detected, Coronavirus NL63 (PCR) Not detected, Human Metapneumovir PCR Not detected, Influenza A (H1) PCR Not detected, Influ A (H1N1/09) PCR Not detected, Influenza A (H3) PCR Not detected, Influenza Type A (PCR) Not detected, Influenza Type B (PCR) Not detected, M. pneumoniae (PCR) Not detected, Parainfluenza 1 (PCR) Not detected, Parainfluenza 2 (PCR) Not detected, Parainfluenza 3 (PCR) Not detected, Parainfluenza 4 (PCR) Not detected, RSV (PCR) Not detected, Entero/Rhino (PCR) Not detected 07/12/25 16:15: POC Glucose 137 H 07/13/25 05:03: POC Glucose 118 H 07/13/25 10:27: WBC 15.5 H, RBC 4.45 L, Hgb 12.8 L, Hct 37.1 L, MCV 83.4, MCH 28.8, MCHC 34.5, RDW 11.8, Plt Count 253, MPV 8.3, Neut % (Auto) 84.0 H, Lymph % (Auto) 8.8 L, [place] % (Auto) 6.2, Eos % (Auto) 0.0 L, Baso % (Auto) 0.2, Neut # (Auto) 13.0 H, Lymph # (Auto) 1.4, [place] # (Auto) 1.0, Eos # (Auto) 0.0, Baso # (Auto) 0.0, Sodium 138, Potassium 4.1, Chloride 103, Carbon Dioxide 27, Anion Gap 12.1, BUN 24 H, Creatinine 0.90, Estimated Creat Clear 102, Estimated GFR 103, Est GFR ( Amer) 124, Glucose 165 H, Calcium 8.8, Magnesium 1.8 D, Total Bilirubin 0.7, AST 33 D, ALT 18, Alkaline Phosphatase 65, Total Protein 6.0 L, Albumin 3.9, Globulin 2.1, Albumin/Globulin Ratio 1.9 H I & O for Labs for Last 24 Hours: Intake & Output 07/10/25 07/11/25 07/12/25 07/13/25 23:59 23:59 23:59 23:59 Intake Total 2500 / 2500 2420 / 2420 1100 / 1100 Output Total 0 / 0 0 / 0 Balance 2500 / 2500 2420 / 2420 1100 / 1100 Weight 56.245 kg 56.427 kg 57.742 kg Constitutional: Present no acute distress, thin and chronically ill appearing Head: Present atraumatic and normocephalic ENT: Present normal exam Neck: Present normal inspection Respiratory: Present normal respiratory effort; Absent rhonchi, wheezes or crackles Cardiac: Present Reg Rate and Rhythm GI: Present soft, tenderness (Mild, nonfocal) and normal bowel sounds; Absent distention, guarding or rebound Extremities: Present normal inspection and full ROM Skin: Present intact; Absent erythema Neuro: Present Grossly Intact, alert, awake, oriented x 3 and moves all extremities Assessment and Plan *Assessment and plan (1) Intractable nausea and vomiting: Status: Acute Category: Medical Code(s): R11.2 - Nausea with vomiting, unspecified (2) Colitis: Status: Acute Category: Medical Code(s): K52.9 - Noninfective gastroenteritis and colitis, unspecified (3) Diabetes mellitus type 1: Status: Acute Qualifiers: Diabetes mellitus complication status: with other specified complication Qualified Code(s): E10.69 - Type 1 diabetes mellitus with other specified complication Category: Medical Code(s): E10.9 - Type 1 diabetes mellitus without complications (4) DKA (diabetic ketoacidosis): Status: Resolved Qualifiers: Diabetes mellitus type: type 1 Diabetes mellitus complication detail: without coma Qualified Code(s): E10.10 - Type 1 diabetes mellitus with ketoacidosis without coma Category: Medical Code(s): E11.10 - Type 2 diabetes mellitus with ketoacidosis without coma Plan Barry Joe is a 24-year-old male with a medical hx significant for type 1 diabetes on insulin pump, cannabanoid hyperemesis syndrome, gastroparesis, medical nonadherence presents with intractable nausea/vomiting in the setting of suspected gastroenteritis and was admitted for dehydration, poor oral intake, weakness. Continues to require inpatient management pending tolerance of p.o. intake. Problems addressed as follows: #Acute viral syndrome #Enterocolitis #Gastroparesis ? Presented with intractable nausea/vomiting for the past few days. ? CT abdomen pelvis suggestive of enterocolitis. Initial WBC 18.6. Poor oral intake. Full respiratory panel normal. - White count remains marginally elevated at 15, hemoglobin 12.8. Kidney function normal with BUN 24, creatinine 0.9. Glucose 165 on morning labs. No anion gap today. - Repeat CBC, CMP, magnesium ordered for the - Continue IV Zosyn 3.375 g every 6 hours for possible bacterial enterocolitis. No further diarrhea since admission. Unable to obtain PCR on stool ? Continue home IV Reglan 5 mg ACHS. #Type 1 diabetes ? Continue insulin pump. Blood sugar stable. ACHS glucose checks. #GERD # History of esophagitis ? Continue IV Protonix 40 mg. Full code DVT prophylaxis: Lovenox 40 mg
[2025-07-13 12:26] LABS: POC Glucose,Bedside 163 gm/dL (70-110)
[2025-07-13] MEDS: PROMETHAZINE HCL 25MG/ML 1ML VIAL 25 MG IV ×2 (15:50→21:33)
[2025-07-13 16:15] LABS: POC Glucose,Bedside 173 gm/dL (70-110)
--- NOTE | 2025-07-13 18:27 | PC.NURSE ---
pt sleeping in bed, PRN meds given through out the day for N/V, mother at bedside, call light in reach
[2025-07-13 20:00] VITALS: BP 111/53; PULSE 66; RESP 16; TEMP 37.8; O2SAT 96
--- NOTE | 2025-07-13 20:25 | PC.NURSE ---
Attempted to administer pt tylenol for temp 100.1. Pt refusing at this time. Pt encouraged to call out if he wants to take it.
[2025-07-13] MEDS: SODIUM CHLORIDE 0.9% 10ML VIAL 10 ML IV (20:53)
[2025-07-13] MEDS: PANTOPRAZOLE 40MG VIAL 40 MG IV (20:53)
[2025-07-13] MEDS: SODIUM CHLORIDE 0.9% 25ML BAG 25 ML IV (21:33)
[2025-07-14] VITALS: BP 149/72; PULSE 68; RESP 16; TEMP 37.2; O2SAT 96
[2025-07-14 03:56] VITALS: BP 143/87; PULSE 64; RESP 20; TEMP 36.9; O2SAT 98; BMI 20.2
[2025-07-14] MEDS: SODIUM CHLORIDE 0.9% 25ML BAG 25 ML IV ×2 (04:10→14:54)
[2025-07-14] MEDS: PIPERCILLIN/TAZO 3.375 GM in 0.9 % SODIUM CHLORIDE 50 ML IV ×4 (04:10→20:23)
[2025-07-14] MEDS: PROMETHAZINE HCL 25MG/ML 1ML VIAL 25 MG IV ×3 (04:10→23:06)
[2025-07-14] MEDS: METOCLOPRAMIDE HCL 10MG/2ML VIAL 5 MG IVP ×4 (05:05→20:23)
--- NOTE | 2025-07-14 06:48 | PC.NURSE ---
Addendum entered by Susana Qureshi RN 07/14/25 07:02: states he will enter order when able. Original Note: Notified of FS 230. Pt states insulin pump is empty at this time.
[2025-07-14] MEDS: humaLOG 100 UNITS/ML 10ML VIAL (SSI) SUBCUT ×2 (07:12→11:37)
[2025-07-14] MEDS: INSULIN GLARGINE 100 UNITS/ML 3ML FLEXPEN 15 UNIT SUBCUT (07:12)
[2025-07-14 08:00] VITALS: BP 117/42; PULSE 70; RESP 16; TEMP 37.2; O2SAT 95
[2025-07-14] MEDS: LACTATED RINGERS 1000ML 1,000 ML 125 ML IV ×2 (08:07→16:27)
--- NOTE | 2025-07-14 08:49 | HMH.PHAAMS2 ---
- Antimicrobial Stewardship Review culture & sensitivity review Stewardship interventions: culture & sensitivity review (CURRENTLY ON ZOSYN, WBC 15.5K YESTERDAY, AFEBRILE, NO CX CURRENTLY COLLECTED.)
[2025-07-14 09:28] LABS: Hematocrit 38.0 % (42.0-52.0); Hemoglobin 13.2 g/dL (14.1-18.0); Immature Granulocytes % 1.2 %; Mean Corpuscular HGB Conc 34.7 g/dL (31.8-35.4); Mean Corpuscular Hemoglobin 28.7 pg (27.0-31.2); Mean Corpuscular Volume 82.6 fl (80-94); Nucleated Red Blood Cells % 0 %; Platelet Count 271 K/mm3 (142-424); Red Blood Count 4.60 M/mm3 (4.60-6.20); Red Cell Distribution Width-SD 34.7 fL; White Blood Count 13.8 K/mm3 (4.8-10.8)
[2025-07-14 09:29] LABS: Albumin Level 3.9 g/dl (3.5-5.0); Chloride 103 mmol/L (98-107)
[2025-07-14 09:30] LABS: Potassium 3.8 mmoL/L (3.5-5.1); Sodium 137 mmol/L (136-145)
[2025-07-14 09:32] LABS: Alanine Aminotransferase 16 U/L (12-78); Albumin/Globulin Ratio 1.7 (1.1-1.8); Alkaline Phosphatase 61 U/L (38-126); Anion Gap 11.8 mEq/L (5-15); Aspartate Amino Transferase 25 U/L (17-59); Bilirubin,Total 0.9 mg/dl (0.2-1.3); Blood Urea Nitrogen 23 mg/dl (9-20); Carbon Dioxide 26 mmol/L (22.0-30.0); Creatinine Clearance Estimated 94 mL/min (50-200); Creatinine,Serum 1.00 mg/dl (0.66-1.25); Estimated Glomerular Filt Rate 91 ml/min (>60); GFR (African American) 110 ML/MIN (>60); Globulin 2.3 g/dL (1.3-3.2); Total Protein,Serum 6.2 g/dl (6.3-8.2)
[2025-07-14 09:33] LABS: Calcium 8.7 mg/dl (8.4-10.2); Glucose 182 mg/dl (74-100); Magnesium 1.9 mg/dl (1.6-2.3)
--- NOTE | 2025-07-14 10:14 | PC.NURSE ---
hospitalist to call in vial of lispro insulin to refill pt pump. pt and mother aware
--- NOTE | 2025-07-14 10:50 | P.PN_ITS ---
Subjective *Date: 07/14/25 *Time: 15:07 Interval history: Had further emesis overnight. Poor tolerance of p.o. intake. Ran out of insulin in his pump overnight. Transition to basal bolus regimen today. Patient ill-appearing on morning rounds. Stable on room air. Medical Exam Vital signs and Labs for Last 24 Hours: Vital Signs Temp Pulse Resp BP Pulse Ox O2 Del Method 07/14/25 09:00 Room Air 07/14/25 08:00 99.0 F 70 16 117/42 L 95 Room Air 07/14/25 08:00 Room Air 07/14/25 06:40 Room Air 07/14/25 05:00 Room Air 07/14/25 03:56 98.5 F 64 20 143/87 H 98 Room Air 07/14/25 03:00 Room Air 07/14/25 01:00 Room Air 07/14/25 00:00 98.9 F 68 16 149/72 H 96 Room Air 07/13/25 22:40 Room Air 07/13/25 21:00 Room Air 07/13/25 20:00 Room Air 07/13/25 20:00 100.1 F H 66 16 111/53 L 96 Room Air Intake and Output 07/13/25 07/14/25 07/14/25 23:59 07:59 15:59 Intake Total 1100 / 3200 1050 / 1100 50 / 1100 Output Total 250 / 250 0 / 0 Balance 850 / 2950 1050 / 1100 50 / 1100 Intake: Intake, Total IV Amount 1100 / 3200 1050 / 1100 50 / 1100 Lactated Ringers 1000ML 1,000 1000 / 3000 1000 / 1000 ml @ 125 mls/hr IV .Q8H MARCELO Rx# :[id number] Pipercillin/Tazo 3.375 gm In 0. 100 / 200 50 / 100 50 / 100 9 % Sodium Chloride 50 ml @ 100 mls/hr IV Q6H MARCELO Rx#:[id number] Output: Output, Urine Amount 0 / 0 Output, Emesis Amount 250 / 250 Other: Number of Unmeasured Voids 1 Weight 58.559 kg Patient Weight 07/14/25 23:59 Weight 58.559 kg Laboratory Results - last 24 hr 07/13/25 10:27: Sodium 138, Potassium 4.1, Chloride 103, Carbon Dioxide 27, Anion Gap 12.1, BUN 24 H, Creatinine 0.90, Estimated Creat Clear 102, Estimated GFR 103, Est GFR ( Amer) 124, Glucose 165 H, Calcium 8.8, Magnesium 1.8 D, Total Bilirubin 0.7, AST 33 D, ALT 18, Alkaline Phosphatase 65, Total Protein 6.0 L, Albumin 3.9, Globulin 2.1, Albumin/Globulin Ratio 1.9 H 07/13/25 12:19: POC Glucose 163 H 07/13/25 16:07: POC Glucose 173 H 07/14/25 09:15: WBC 13.8 H, RBC 4.60, Hgb 13.2 L, Hct 38.0 L, MCV 82.6, MCH 28.7, MCHC 34.7, RDW 11.6, Plt Count 271, MPV 8.1, Neut % (Auto) 81.2 H, Lymph % (Auto) 11.8, [place] % (Auto) 5.7, Eos % (Auto) 0.0 L, Baso % (Auto) 0.1, Neut # (Auto) 11.2 H, Lymph # (Auto) 1.6, [place] # (Auto) 0.8, Eos # (Auto) 0.0, Baso # (Auto) 0.0, Sodium 137, Potassium 3.8, Chloride 103, Carbon Dioxide 26, Anion G ap 11.8, BUN 23 H, Creatinine 1.00, Estimated Creat Clear 94, Estimated GFR 91, Est GFR ( Amer) 110, Glucose 182 H, Calcium 8.7, Magnesium 1.9, Total Bilirubin 0.9, AST 25, ALT 16, Alkaline Phosphatase 61, Total Protein 6.2 L, Albumin 3.9, Globulin 2.3, Albumin/Globulin Ratio 1.7 I & O for Labs for Last 24 Hours: Intake & Output 07/11/25 07/12/25 07/13/25 07/14/25 23:59 23:59 23:59 23:59 Intake Total 2500 / 2500 2420 / 2420 3200 / 3200 1100 / 1100 Output Total 0 / 0 250 / 250 0 / 0 Balance 2500 / 2500 2420 / 2420 2950 / 2950 1100 / 1100 Weight 56.245 kg 56.427 kg 57.742 kg 58.559 kg Constitutional: Present no acute distress, thin and chronically ill appearing Head: Present atraumatic and normocephalic ENT: Present normal exam Neck: Present normal inspection Respiratory: Present normal respiratory effort; Absent rhonchi, wheezes or crackles Cardiac: Present Reg Rate and Rhythm GI: Present soft, tenderness (Mild, nonfocal) and normal bowel sounds; Absent distention, guarding or rebound Extremities: Present normal inspection and full ROM Skin: Present intact; Absent erythema Neuro: Present Grossly Intact, alert, awake, oriented x 3 and moves all extremities Assessment and Plan *Assessment and plan (1) Intractable nausea and vomiting: Status: Acute Category: Medical Code(s): R11.2 - Nausea with vomiting, unspecified (2) Colitis: Status: Acute Category: Medical Code(s): K52.9 - Noninfective gastroenteritis and colitis, unspecified (3) Diabetes mellitus type 1: Status: Acute Qualifiers: Diabetes mellitus complication status: with other specified complication Qualified Code(s): E10.69 - Type 1 diabetes mellitus with other specified complication Category: Medical Code(s): E10.9 - Type 1 diabetes mellitus without complications (4) DKA (diabetic ketoacidosis): Status: Resolved Qualifiers: Diabetes mellitus type: type 1 Diabetes mellitus complication detail: without coma Qualified Code(s): E10.10 - Type 1 diabetes mellitus with ketoacidosis without coma Category: Medical Code(s): E11.10 - Type 2 diabetes mellitus with ketoacidosis without coma Plan Barry Joe is a 24-year-old male with a medical hx significant for type 1 diabetes on insulin pump, cannabanoid hyperemesis syndrome, gastroparesis, medical nonadherence presents with intractable nausea/vomiting in the setting of suspected gastroenteritis and was admitted for dehydration, poor oral intake, weakness. Continues to require inpatient management pending tolerance of p.o. intake. Problems addressed as follows: #Acute viral syndrome #Enterocolitis #Gastroparesis ? Presented with intractable nausea/vomiting for the past few days. ? CT abdomen pelvis suggestive of enterocolitis. Initial WBC 18.6. Poor oral intake. Full respiratory panel normal. - White count improving today at 13.8. Hemoglobin 13.2. Kidney function normal with BUN 23, creatinine 1. Anion gap remains closed. Glucose this morning on labs of 182. - Repeat CBC, CMP, magnesium ordered for the - Continue IV Zosyn 3.375 g every 6 hours for possible bacterial enterocolitis. No further diarrhea since admission. Unable to obtain PCR on stool ? Continue home IV Reglan 5 mg ACHS. #Type 1 diabetes ?Transition to basal bolus regimen today. Received 15 units insulin glargine this morning. High intensity sliding scale. Ordered refill for patient's pump, resume pump management once it is refilled - ACHS glucose checks. #GERD # History of esophagitis ? Continue IV Protonix 40 mg. Full code DVT prophylaxis: Lovenox 40 mg
[2025-07-14 12:00] VITALS: BP 106/64; PULSE 75; RESP 20; TEMP 36.9; O2SAT 100
[2025-07-14 13:56] VITALS: BMI 20.2
--- OUTSIDE RECORDS SUMMARY | 2025-07-14 15:10 | XMS_ITS | Clinical Summary ---
Author Organization [facility] Address [address] [place] [address], [address] [place] [address] Care Team Providers Care Store Stock Help Name Role Phone Unavailable Primary Care Provider [...]
--- OUTSIDE RECORDS SUMMARY | 2025-07-14 15:10 | XMS_ITS | Clinical Summary ---
Author Organization [employer] [facility] lin Address [address] [facility] [place] [address] Care Team Providers Care Senior Sales Executive Name Role Phone Unavailable Primary Care Provider Unavailabl e Social History Tobacco Use Types Packs/Day Years Used Date Smoking Tobacco: Never Assessed Sex and Gender Information Value Date Recorded Sex Assigned at Not on file Legal Sex Male 9:32 AM EST Gender Identity Not on file Sexual Orientation Not on file Plan of Treatment Not on file Medical Devices Not on file Insurance [facility]
--- OUTSIDE RECORDS SUMMARY | 2025-07-14 15:10 | XMS_ITS | Clinical Summary ---
Author Organization [facility] Address [address] [place] [address] Care Team Providers Care Environment Coordinator Name Role Phone Unavailable Primary Care Provider Unavailabl e Source Comments [facility] is fully rolled out with thefollowing exceptions:General Clinical Research [facility] Social History Tobacco Use Types [...]
--- OUTSIDE RECORDS SUMMARY | 2025-07-14 15:10 | XMS_ITS | Clinical Summary ---
Author Organization [facility] Address [address] [place] [address] Care Team Providers Care Fermenter Helper Name Role Phone Gretchen Angelo APRN Primary Care Provider [phone] Allergies No known active allergies Medications glucose [...] drink = 0.6 oz pur e alcohol) [facility] Utilities Answer Date Recorded In the past 12 months has [employer], gas, oil, or water [employer] threatened to shut off services in your [...] care, and heating? Not very hard 08/15/2024 [facility] [place] of Occupat ional Health - Occupational Stress [...] GED or equivalent No 08/15/2024 Preferred Language Swiss 08/15/2024 PHQ-2 Answer Date Recorded Patient Health [...] Description 09/07/2025 9:45 AM EST Office Visit [facility] [address] [address] Pavan Cruz MD [address] [address] Health Maintenance Due Date Last Done Comments [...] Hemoglobin A1C 7.4(A) 4.5 - 5.7 % [facility] Lot Number [id number] [facility] Expiration Date 10/29/2026 [facility] Blood 03/06/2025 3:17 PM EDT Pavan Cruz MD POINT OF CARE TEST ORD ERABLES Final Result [facility]
[address] [place] [address], from Last 3 Months or Most Recently [...] Of Support Discussed With: Patient Care Teams Fermenter Helper Relationship Specialty Start Date End Date Gretchen Angelo APRN [address] [place] [address] PCP - General Nurse Practitioner 06/25/23
--- OUTSIDE RECORDS SUMMARY | 2025-07-14 15:10 | XMS_ITS | Clinical Summary ---
Author Organization [facility] Address [address] [place] [address] Phone Care Team Providers Care Door Framer Name Role Phone Unavailable Primary Care Provider [...]
--- OUTSIDE RECORDS SUMMARY | 2025-07-14 15:10 | XMS_ITS | Encounter Summary ---
Author Organization [facility] Address [address] [place] [address] Care Team Providers Care Senior Business Analyst Name Role Phone None, None Primary Care Provider Unavailabl e Mychart, Generic Provider Unavailable Shena Joe MD Unavailable [phone] Suellen Hurley NP Unavailable Unavailable Reason for Visit * Reason Onset Date Comments Other 01/22/2020 [facility] fax Encounter Details Date Type Department Care Team (Late st Contact Info) Description 01/22/2020 Telephone [facility] - [facility] End[facility], [place] [address] [place] [address] Shena Lloyd MD [address] [place] [address] Other ([facility] fax) Social History [...] 01/22/2020 6:55 AM EDT Rcvd fax from [employer] for SB to review and sign-placed in box documented in this encounter Plan of Treatment Not on file documented as of this encounter Visit Diagnoses Not on filedocumented in this encounter Care Teams Senior Business Analyst Relationship Specialty Start Date End Date None, None [address] [place] [address] PCP - General 04/11/19 [place], Generic Provider 09/01/20 Shena Lloyd MD [address] [place] [phone] Endocrinology/Diabetes/ Metabolism 12/30/20 Suellen Hurley NP [address] [place] [address] Nurse Practitioner Endocrinology/Diabetes/ Metabolism 03/29/21 documented as of this encounter
--- OUTSIDE RECORDS SUMMARY | 2025-07-14 15:10 | XMS_ITS | Encounter Summary ---
Author Organization [facility] Address [address] [place] [address] Care Team Providers Care Shrimp Header Name Role Phone None, None Primary Care Provider Unavailabl e Mychart, Generic Provider Unavailable Shena Joe MD Unavailable [phone] Suellen Hurley NP Unavailable Unavailable Reason for Visit * Reason Onset Date Comments Other 02/13/2020 EYE EXAM Encounter Details Date Type Department Care Team (Late st Contact Info) Description 02/13/2020 Clinical Update [facility] - [facility], [place] [address] [place] [address] Suellen Hurley NP Other (EYE [...] on filedocumented in this encounter Care Teams Shrimp Header Relationship Specialty Start Date End Date None, None [address] [facility] [place] [address] PCP - General 04/11/19 Mychart, Generic Provider 09/01/20 Shena Lloyd MD [address] [place] [phone] Endocrinology/Diabetes/ Metabolism 12/30/20 Suellen Hurley NP [address] [place] [address] Nurse Practitioner Endocrinology/Diabetes/ Metabolism 03/29/21 documented as of this encounter
--- OUTSIDE RECORDS SUMMARY | 2025-07-14 15:10 | XMS_ITS | Encounter Summary ---
Author Organization [facility] Address [address] [place] [address] Care Team Providers Care Glass Embosser Name Role Phone Gretchen Angelo APRN Primary Care Provider [phone] Encounter Details Date Type Department Care Team (Late st Contact Info) Description 03/09/2025 Results Follow-Up [facility] [address] [address] Pavan Cruz MD [facility] [place] [address] Social History Tobacco Use Types Packs/Day Years Used Date Smoking Tobacco: Never Passive Smoke Exposure: Never Smokeless Tobacco: Never Alcohol Use Standard Drinks/Week Comments Not Currently 1 (1 standard drink = 0.6 oz pur e alcohol) [facility] Utilities Answer Date Recorded In the past 12 months has [employer], gas, oil, or water [employer] threatened to shut off services in your [...] care, and heating? Not very hard 08/15/2024 [place] of Occupat ional Health - Occupational Stress [...] GED or equivalent No 08/15/2024 Preferred Language Gibraltarian 08/15/2024 PHQ-2 Answer Date Recorded Patient Health [...] Office Visit [facility] [address] [phone] Pavan Cruz MD [address] [address] documented as of this encounter Visit Diagnoses Not on filedocumented in this encounter Care Teams Glass Embosser Relationship Specialty Start Date End Date Gretchen Angelo APRN [address] [place] [address] PCP - General Nurse Practitioner 06/25/23 documented as of this encounter
--- OUTSIDE RECORDS SUMMARY | 2025-07-14 15:10 | XMS_ITS | Clinical Summary ---
Author Organization [facility] Address [address] [place] [address] Care Team Providers Care K 9 Handler/ Deputy Name Role Phone None, None Primary Care Provider Unavailabl e Mychart, Generic Provider Unavailable Shena Joe MD Unavailable [phone] Suellen Hurley NP Unavailable Unavailable Allergies No known active allergies Medications Blood-Glucose Meter Misc Use 1 Each as instructed 4 times daily (before meals and at bedtime). 1 Each 04/14/2019 4:02 PM EDT 04/14/20 Active Insulin [place], Disposable, 31 gauge x 5/16 NeedleIndications :Type [...] to the patient, Quantity 2, Lot Number [id number], Expiration 03/2020 6 mL 1 07/10/20 19 [...] EXTERNAL LAB Alb, Ur 1.30 mg/dL TC CELL OPERATION SUPERVISOR AL LAB Alb Creat Ratio 20 0 [...] Lloyd MD URINE ORDERABLES Final Res ult [facility] [address] * (ABNORMAL) RENAL PROFILE (12/30/2020 4:22 [...] LAB Albumin 4.8 3.5 - 5.0 g/dL [facility] BUN/Creatinine Ratio 13 [facility] Serum (Serum) 12/30/2020 4:2 2 PM EDT 12/30/2020 7:02 PM EDT us Shean Lloyd MD CHEMISTRY ORDERABLES Final Result [facility] [address] * LIPID PROFILE (12/30/2020 4:22 PM [...] High HDL 59 40 - 180 mg/dL [facility] Comment: HDL CHOLESTEROL INTERPRETATION: Less than 40 mg/dL Low Greater than 60 mg/dL Desirable Triglycerides 101 0 - 150 mg/dL [facility] Comment: TOTAL TRIGLYCERIDE INTERPRETATION: Less than 150 mg/dL Normal 150-199 mg/dL Borderline HIgh 200-499 mg/dL High Greater or Equal to 500 mg/dL Very High Serum (Serum) 12/30/2020 4:2 2 PM EDT 12/30/2020 7:02 PM EDT Shena Lloyd MD CHEMISTRY ORDERABLES Final Result [facility] [address] * POCT AMB HEMOGLOBIN A1C (12/30/2020 [...] Advance Directives For more information, please contact: [phone] * Full Code (Latest Code Status on File) Date Activated Date Inactivated Comments 04/11/2019 6:39 PM 06/21/2023 10:47 AM No automate d chest compression devices for VAD Patients * Full Code Date Activated Date Inactivated Comments 04/11/2019 6:37 PM 04/11/2019 6:39 PM Care Teams K 9 Handler/ Deputy Relationship Specialty Start Date End Date None, None [address] [place] [address] PCP - General 04/11/19 Mychart, Generic Provider 09/01/20 Shena Lloyd MD [address] [place] [phone] Endocrinology/Diabetes/ Metabolism 12/30/20 Suellen Hurley NP [address] [place] [address] Nurse Practitioner Endocrinology/Diabetes/ Metabolism 03/29/21
--- OUTSIDE RECORDS SUMMARY | 2025-07-14 15:11 | XMS_ITS | Encounter Summary ---
Author Organization [facility] Address [address] [place] [address] Care Team Providers Care Restaurant Bartender Name Role Phone None, None Primary Care Provider Unavailabl e Mychart, Generic Provider Unavailable EarlinevaShena Arias MD Unavailable [phone] Suellen Hurley NP Unavailable Unavailable Reason for Visit * Reason Comments Medications Refill Encounter Details Date Type Department Care Team (Late st Contact Info) Description 04/12/2021 Refill [facility] [place] [address] [facility] [place] [address] Suellen Hurley NP Medications Refill [...] study documented in this encounter Care Teams Restaurant Bartender Relationship Specialty Start Date End Date None, None [address] [place] [address] PCP - General 04/11/19 Mychart, Generic Provider 09/01/20 Shena Lloyd MD [address] [place] [address] Endocrinology/Diabetes/ Metabolism 12/30/20 Suellen Hurley NP [address] [place] [address] Nurse Practitioner Endocrinology/Diabetes/ Metabolism 03/29/21 documented as of this encounter
--- OUTSIDE RECORDS SUMMARY | 2025-07-14 15:11 | XMS_ITS | Encounter Summary ---
Author Organization [facility] Address [address] [place] [address] Care Team Providers Care Valve Mechanic Name Role Phone None, None Primary Care Provider Unavailabl e Mychart, Generic Provider Unavailable EarlinevaShena Arias MD Unavailable [phone] Suellen Hurley NP Unavailable Unavailable Reason for Visit * Reason Comments Medications Refill Encounter Details Date Type Department Care Team (Late st Contact Info) Description 08/06/2021 Refill [facility] [place] [address] [facility] [place] [address] Suellen Hurley NP Medications Refill [...] study documented in this encounter Care Teams Valve Mechanic Relationship Specialty Start Date End Date None, None [address] [place] [place] [address] PCP - General 04/11/19 Mychart, Generic Provider 09/01/20 Shena Lloyd MD [address] [place] [address] Endocrinology/Diabetes/ Metabolism 12/30/20 Suellen Hurley NP [address] [place] [address] Nurse Practitioner Endocrinology/Diabetes/ Metabolism 03/29/21 documented as of this encounter
--- OUTSIDE RECORDS SUMMARY | 2025-07-14 15:11 | XMS_ITS | Encounter Summary ---
Author Organization [facility] Address [facility] [place] [address] Care Team Providers Care Ab Initio Etl Developer Name Role Phone None, None Primary Care Provider Unavailabl e Mychart, Generic Provider Unavailable Shena Joe MD Unavailable [phone] Suellen Hurley NP Unavailable Unavailable Reason for Visit * Reason Comments Medications Refill Encounter Details Date Type Department Care Team (Late st Contact Info) Description 10/19/2020 Refill [facility] [place] [address] [place] [address] Suellen Hurley NP Medications Refill [...] study documented in this encounter Care Teams Ab Initio Etl Developer Relationship Specialty Start Date End Date None, None [address] [place] [address] PCP - General 04/11/19 Mychart, Generic Provider 09/01/20 Shena Lloyd MD [address] [place] [phone] Endocrinology/Diabetes/ Metabolism 12/30/20 Suellen Hurley NP [address] [place] [address] Nurse Practitioner Endocrinology/Diabetes/ Metabolism 03/29/21 documented as of this encounter
[2025-07-14 16:00] VITALS: BP 141/78; PULSE 74; RESP 20; TEMP 37.3; O2SAT 99
--- NOTE | 2025-07-14 16:13 | PC.NURSE ---
pt lying in bed at this time with mother at bedside. pt has complained of nausea/ vomiting intermittently throughout the shift and was medicated per sep. pt encouraged to increase oral intake throughout shift, but pt is resistant to do so. fluids infusing per sep. abx given per sep. insulin from clinic pharmacy brought to pt this shift and pt refilled insulin pump. sugars recorded per fsbs log. no needs at this time. call light within reach.
[2025-07-14] MEDS: ONDANSETRON 4MG/2ML VIAL 4 MG IV (18:36)
[2025-07-14 20:00] VITALS: BP 128/76; PULSE 70; RESP 16; TEMP 37.4; O2SAT 97
[2025-07-14] MEDS: SODIUM CHLORIDE 0.9% 10ML VIAL 10 ML IV (20:23)
[2025-07-14] MEDS: PANTOPRAZOLE 40MG VIAL 40 MG IV (20:23)
[2025-07-15] MEDS: LACTATED RINGERS 1000ML 1,000 ML 125 ML IV ×2 (01:14→11:16)
[2025-07-15] MEDS: PIPERCILLIN/TAZO 3.375 GM in 0.9 % SODIUM CHLORIDE 50 ML IV ×3 (03:00→15:26)
[2025-07-15 04:00] VITALS: BP 148/89; PULSE 75; RESP 16; TEMP 36.9; O2SAT 99; BMI 20.2
--- NOTE | 2025-07-15 04:10 | PC.NURSE ---
Alert and oriented. Independent in the room. Complained of nausea one time, treated per mar. Patient receiving fluids and abx. Patient vomited one time this. Room air. Call light in reach.
[2025-07-15] MEDS: ONDANSETRON 4MG/2ML VIAL 4 MG IV (04:32)
[2025-07-15] MEDS: METOCLOPRAMIDE HCL 10MG/2ML VIAL 5 MG IVP ×2 (05:03→08:58)
[2025-07-15 08:00] VITALS: BP 129/72; PULSE 77; RESP 16; TEMP 36.8; O2SAT 98
[2025-07-15] MEDS: SODIUM CHLORIDE 0.9% 25ML BAG 25 ML IV (08:22)
[2025-07-15] MEDS: PROMETHAZINE HCL 25MG/ML 1ML VIAL 25 MG IV (08:22)
--- NOTE | 2025-07-15 08:57 | HMH.PHAAMS2 ---
- Antimicrobial Stewardship Review culture & sensitivity review Stewardship interventions: culture & sensitivity review, reviewed - no change Comments: PATIENT ON ZOSYN FOR SUSPECTED BACTERIAL ENTEROCOLITIS, NO CULTURES OBTAINED. WBC CONTINUING TO TREND DOWN (13.8 K/mm3 TODAY FROM 15.5 K/mm3 YESTERDAY), AFEBRILE OVER 24 HR. 48 hour timeout review Stewardship interventions: 48 hour timeout review, reviewed - no change Comments: PATIENT ON ZOSYN FOR SUSPECTED BACTERIAL ENTEROCOLITIS, NO CULTURES OBTAINED. WBC CONTINUING TO TREND DOWN (13.8 K/mm3 TODAY FROM 15.5 K/mm3 YESTERDAY), AFEBRILE OVER 24 HR. RECOMMEND 5-7 DAYS OF ABX.
[2025-07-15 11:05] LABS: Hematocrit 37.6 % (42.0-52.0); Hemoglobin 13.2 g/dL (14.1-18.0); Immature Granulocytes % 1.0 %; Mean Corpuscular HGB Conc 35.1 g/dL (31.8-35.4); Mean Corpuscular Hemoglobin 28.4 pg (27.0-31.2); Mean Corpuscular Volume 80.9 fl (80-94); Nucleated Red Blood Cells % 0 %; Platelet Count 259 K/mm3 (142-424); Red Blood Count 4.65 M/mm3 (4.60-6.20); Red Cell Distribution Width-SD 33.6 fL; White Blood Count 10.3 K/mm3 (4.8-10.8)
[2025-07-15 11:10] LABS: Albumin Level 3.9 g/dl (3.5-5.0); Chloride 98 mmol/L (98-107); Potassium 3.5 mmoL/L (3.5-5.1); Sodium 135 mmol/L (136-145)
[2025-07-15 11:12] LABS: Blood Urea Nitrogen 17 mg/dl (9-20); Creatinine Clearance Estimated 117 mL/min (50-200); Creatinine,Serum 0.80 mg/dl (0.66-1.25); Estimated Glomerular Filt Rate 118 ml/min (>60); GFR (African American) 143 ML/MIN (>60)
[2025-07-15 11:13] LABS: Alanine Aminotransferase 13 U/L (12-78); Albumin/Globulin Ratio 2.3 (1.1-1.8); Alkaline Phosphatase 55 U/L (38-126); Anion Gap 10.5 mEq/L (5-15); Aspartate Amino Transferase 24 U/L (17-59); Bilirubin,Total 1.1 mg/dl (0.2-1.3); Calcium 8.6 mg/dl (8.4-10.2); Carbon Dioxide 30 mmol/L (22.0-30.0); Globulin 1.7 g/dL (1.3-3.2); Glucose 149 mg/dl (74-100); Magnesium 1.9 mg/dl (1.6-2.3); Total Protein,Serum 5.6 g/dl (6.3-8.2)
[2025-07-15 11:46] VITALS: BP 133/77; PULSE 64; RESP 16; TEMP 36.8; O2SAT 97
--- NOTE | 2025-07-15 15:12 | EXP.DC.SUM ---
General Admission date:: 07/11/25 Discharge date: 07/15/25 HPI HPI HPI: 24-year-old male who presents to the emergency department for evaluation of abdominal pain, nausea vomiting diarrhea that started this a.m. Initial workup will be conducted with labs, chest x-ray, CT, flu and COVID swab, urine. Initial inventions include IV fluids, 2 doses of IV Zofran,. work up in ED negative for DKA> recieved multiple doses of anti emetics without improvement of symptoms. declined marijuana consumtpion. was administered 2.5 mg of IV droperidol and 25 mg of IV Benadryl. discussed due to inability to tolerate PO admitted for further management. agreeable. no other complaints Hospital Course Hospital Course Hospital Course: Barry Joe is a 24-year-old male with a medical hx significant for type 1 diabetes on insulin pump, cannabanoid hyperemesis syndrome, gastroparesis, medical nonadherence presents with intractable nausea/vomiting in the setting of suspected gastroenteritis and was admitted for dehydration, poor oral intake, weakness. Monitored inpatient until he was able to tolerate p.o. intake. Finally tolerating p.o. intake on day of discharge with improved nausea. No vomiting on morning of discharge. Stable discharge home with outpatient follow-up with his PCP. Problems addressed as follows: #Acute viral syndrome #Enterocolitis #Gastroparesis ? Presented with intractable nausea/vomiting for the past few days. CT abdomen pelvis suggestive of enterocolitis. Initial WBC 18.6. Poor oral intake. Full respiratory panel normal. Started on empiric Zosyn for possible enterocolitis. Unable to obtain stool PCR during admission. White count showed improvement. Kidney function remained normal. Anion gap remained closed. Able to advance diet, tolerating full liquids by day of discharge. Continue home Reglan 5 to 10 mg ACHS. Advance diet as tolerated at home. No further antibiotics at discharge. #Type 1 diabetes ? No DKA during admission. Glucose well-controlled. Initially on insulin pump until he ran out of insulin. Refilled during admission. Temporarily was on basal bolus regimen. Fingerstick glucoses between 100 and 200 during admission #GERD # History of esophagitis -IV Protonix during admission. Resume pantoprazole p.o. at discharge Exam Data for Last 24 hours Vital signs and Labs for Last 24 Hours: Temp Pulse Resp BP Pulse Ox O2 Del Method 98.3 F 64 16 133/77 97 Room Air 07/15/25 11:46 07/15/25 11:46 07/15/25 11:46 07/15/25 11:46 07/15/25 11:46 07/15/25 13:10 Laboratory Results - last 24 hr 07/15/25 10:58: WBC 10.3 D, RBC 4.65, Hgb 13.2 L, Hct 37.6 L, MCV 80.9, MCH 28.4, MCHC 35.1, RDW 11.5, Plt Count 259, MPV 8.1, Neut % (Auto) 72.1, Lymph % (Auto) 18.1, Rooks % (Auto) 8.4, Eos % (Auto) 0.1, Baso % (Auto) 0.3, Neut # (Auto) 7.5, Lymph # (Auto) 1.9, Rooks # (Auto) 0.9, Eos # (Auto) 0.0, Baso # (Auto) 0.0, Sodium 135 L, Potassium 3.5, Chloride 98, Carbon Dioxide 30, Anion Gap 10.5, BUN 17 D, Creatinine 0.80, Estimated Creat Clear 117, Estimated GFR 118, Est GFR ( Amer) 143 D, Glucose 149 H, Calcium 8.6, Magnesium 1.9, Total Bilirubin 1.1, AST 24, ALT 13, Alkaline Phosphatase 55, Total Protein 5.6 L, Albumin 3.9, Globulin 1.7, Albumin/Globulin Ratio 2.3 H I & O for Last 24 hours: Intake & Output 07/12/25 07/13/25 07/14/25 07/15/25 23:59 23:59 23:59 23:59 Intake Total 2420 / 2420 3200 / 3200 2200 / 0 2099 Output Total 0 / 0 250 / 250 0 / 0 0 / 0 Balance 2420 / 2420 2950 / 2950 2199 / 2199 Weight 56.427 kg 57.742 kg 58.559 kg 58.55 kg Constitutional Constitutional: no acute distress, thin, chronically ill appearing and cooperative *Routine HEENT Exam Head: Present normocephalic Eye: Present EOMI and PERRL ENT: Present mucous membranes moist *Routine Neck Exam Neck: Present supple; Absent lymphadenopathy *Routine Respiratory Exam Respiratory: Present CTA bilaterally; Absent rhonchi, wheezes or crackles *Routine Cardiovascular Exam Cardiovascular: Present RRR *Routine Abdominal Exam Abdominal: Present soft and normoactive bowel sounds; Absent tenderness or distended *Routine Rectal Exam Patient deferred: visual exam *Routine Exam Patient deferred: penile exam *Routine Extremities Exam Extremities: Absent cyanosis, clubbing or edema *Routine Skin Exam Skin: Present warm; Absent rash *Routine Neurological Exam Neurological: Present alert, oriented X3 and moving all extremities; Absent altered mental status Routine Psychiatric Exam Psychiatric: Present normal affect; Absent good insight or good judgment Results Data Completed and Pending Labs on day of discharge: Labs from last 24 hours 07/15/25 10:58 WBC 10.3 D RBC 4.65 Hgb 13.2 L Hct 37.6 L MCV 80.9 MCH 28.4 MCHC 35.1 RDW 11.5 Plt Count 259 MPV 8.1 Neut % (Auto) 72.1 Lymph % (Auto) 18.1 Rooks % (Auto) 8.4 Eos % (Auto) 0.1 Baso % (Auto) 0.3 Neut # (Auto) 7.5 Lymph # (Auto) 1.9 Rooks # (Auto) 0.9 Eos # (Auto) 0.0 Baso # (Auto) 0.0 Sodium 135 L Potassium 3.5 Chloride 98 Carbon Dioxide 30 Anion Gap 10.5 BUN 17 D Creatinine 0.80 Estimated Creat Clear 117 Estimated GFR 118 Est GFR ( Amer) 143 D Glucose 149 H Calcium 8.6 Magnesium 1.9 Total Bilirubin 1.1 AST 24 ALT 13 Alkaline Phosphatase 55 Total Protein 5.6 L Albumin 3.9 Globulin 1.7 Albumin/Globulin Ratio 2.3 H DS: Diagnosis Discharge Diagnosis (1) Intractable nausea and vomiting: Status: Acute Code(s): R11.2 - Nausea with vomiting, unspecified (2) Colitis: Status: Acute Code(s): K52.9 - Noninfective gastroenteritis and colitis, unspecified (3) Diabetes mellitus type 1: Status: Acute Code(s): E10.9 - Type 1 diabetes mellitus without complications Qualifiers: Diabetes mellitus complication status: with other specified complication Qualified Code(s): E10.69 - Type 1 diabetes mellitus with other specified complication (4) DKA (diabetic ketoacidosis): Status: Resolved Code(s): E11.10 - Type 2 diabetes mellitus with ketoacidosis without coma Qualifiers: Diabetes mellitus complication detail: without coma Diabetes mellitus type: type 1 Qualified Code(s): E10.10 - Type 1 diabetes mellitus with ketoacidosis without coma (5) Moderate protein-calorie malnutrition: Status: Acute Code(s): E44.0 - Moderate protein-calorie malnutrition Meds Home Medications and Allergies Home Medications ?Medication ?Instructions ?Recorded ?Confirmed ?Type blood-glucose sensor (FreeStyle #1 ea 08/18/24 07/11/25 Rx Poli 3 Sensor device) pen needle, diabetic 32 gauge x #1,200 ea 10/23/24 07/11/25 Rx /32 insulin lispro 200 unit/mL (3 mL) 10 - 15 unit SQ AC 02/15/25 07/11/25 History subcutaneous pen (Humalog KwikPen U-200 Insulin) metoclopramide HCl 5 mg tablet 5 - 10 mg PO QID 07/12/25 07/12/25 History pantoprazole 40 mg tablet,delayed 40 mg PO DAILY 07/12/25 07/12/25 History release insulin lispro 100 unit/mL See Rx Instructions .Route 07/14/25 Rx subcutaneous solution .COMPLEX 30 days #10 mL New Prescriptions to Start Prescriptions: insulin lispro Harshil Schultz Allergies Allergy/AdvReac Type Severity Reaction Status Date / Time No Known Allergies Allergy Verified 04/16/25 15:17 Discharge Plan Disposition Patient Disposition: Home, Self-Care Condition: Fair Discharge Order Discharge Orders: Discharge Order (Routine); Ordered 07/15/25 Ordered By: Harshil Schultz Follow up Plan Follow up with: Gretchen Angelo APRN [Primary Care Provider, Family Practice] - Enter time for follow up Prescriptions/Medication Reconciliation: Continued (DME) FreeStyle Poli 3 Sensor Device See Rx Instructions .Route Qty: 1 11RF Rx Instructions: As directed (DME) pen needle, diabetic 32 gauge x 32 needle See Rx Instructions .ROUTE .MEDSUPPLY Qty: 1200 1RF Rx Instructions: As directed Humalog KwikPen Insulin 200 unit/mL (3 mL) insulin pen 10 - 15 unit SQ AC Patient Comments: ADMINISTER 10 TO 15 UNITS SUBCUTANEOUSLY 3 TIMES A DAY BEFORE A MEAL PER SLIDING SCALE Rx Instructions: ADMINISTER 10 TO 15 UNITS SUBCUTANEOUSLY 3 TIMES A DAY BEFORE A MEAL PER SLIDING SCALE metoclopramide HCl 5 mg tablet 5 - 10 mg PO QID pantoprazole 40 mg tablet,delayed release (DR/EC) 40 mg PO DAILY Changed insulin lispro 100 unit/mL solution See Rx Instructions .ROUTE .COMPLEX 30 Days Qty: 10 0RF Rx Instructions: 67 units/day per pump Problem Reconciliation Problems Reviewed?: Yes Patient Discharge Instructions ACTIVITY: Continue current activity DIET: continue same diet Patient Instructions: Carbohydrate-Counting Diet, DI for Nausea in Adults, DI for Vomiting in Adults, DI for Gastroparesis, Using Nutrition Labels: Carbohydrate Diet, Diabetes Diet Label Reading Tips Print Language: Upper Sorbian Providers Primary Care Provider: Gretchen Angelo Provider: Prasanth Guzman Attending Provider: Prasanth Guzman
--- NOTE | 2025-07-20 11:07 | SW/DCPLANNER ---
Phoned patient x2. Left message with name and a call back number each time. Geneva Larkin
== END 2025-07-15 16:06 | disposition home or self-care (01) | DRG 392 ==
LOC: ER 20:15 → 2ND 07-12 06:56
PROVIDERS: Nurse Practitioner Family; Student in an Organized Health Care Education/Training Program; Admitting Provider Student in an Organized Health Care Education/Training Program; Emergency Provider Student in an Organized Health Care Education/Training Program; PCP Nurse Practitioner; Visit Provider Student in an Organized Health Care Education/Training Program
DX: K52.9 Noninfective gastroenteritis and colitis, unspecified (principal); B34.9 Viral infection, unspecified; Z79.4 Long term (current) use of insulin; Z96.41 Presence of insulin pump (external) (internal); Z91.148 Patient's other noncompliance with medication regimen for other reason; K21.9 Gastro-esophageal reflux disease without esophagitis; Z68.20 Body mass index [BMI] 20.0-20.9, adult; E86.0 Dehydration; F17.290 Nicotine dependence, other tobacco product, uncomplicated; E10.43 Type 1 diabetes mellitus with diabetic autonomic (poly)neuropathy
CPT/HCPCS: 0223U; 36415; 71046; 74177; 80053; 81001; 82009; 82803; 82962; 83605; 83690; 83735; 84100; 85025; 87636; 93005; 99285; J1200; J1790; J2405; J2470; J2543; J2550; J2765; J7120; Q9967